=== PATIENT | male | born 1940 | race Caucasian/White ===

== ENCOUNTER → 2016-06-18 | Outpatient (CLI) | payer BC ==
[~2016-06-18] MED LIST: ASPI81TA21 PO; ATOR-54 PO; ATOR10TA88 PO; CARV12.5 PO; CARV6.25 PO; CMD6 PO; LISI-461 PO; METF-384 PO
[2016-06-18 17:38] LABS: CHOLESTEROL/HDL RATIO 4.2
[2016-06-19 06:20] LABS: ESTIMATED AVERAGE GLUCOSE 117 mg/dl; HA1C FLAG Normal (Normal)
== END | disposition home or self-care (01) ==
LOC: C.LABBFT 10:32
PROVIDERS: ATTEND Internal Medicine
DX: E78.5 Hyperlipidemia, unspecified (principal); E11.65 Type 2 diabetes mellitus with hyperglycemia

== ENCOUNTER → 2016-09-30 | Outpatient (CLI) | payer BC ==
[~2016-09-30] MED LIST changes: +ATOR10TA82 PO; -ATOR10TA88 PO
[2016-09-30 13:37] LABS: BLOOD UREA NITROGEN 20 mg/dl (7-18); BUN/CREATININE RATIO 18.3 (10-20)
== END | disposition home or self-care (01) ==
LOC: C.LABBFT 09:27
PROVIDERS: ATTEND Internal Medicine
DX: C61 Malignant neoplasm of prostate (principal); I26.99 Other pulmonary embolism without acute cor pulmonale

== ENCOUNTER → 2016-10-16 | Outpatient (CLI) | payer BC ==
[~2016-10-16] MED LIST changes: -ATOR10TA82 PO; -CARV6.25 PO
[2016-10-16 13:27] VITALS: BP 147/80; PULSE 66; TEMP 36.7; O2SAT 96
--- NOTE | 2016-10-16 15:55 | Radiation Oncology Follow-Up ---
Radiation Oncology Follow-Up Date of Visit October 16, 2016. Reason For Visit Annual follow-up Radiation Completion Date 12/17/02 Diagnosis (1) Prostate cancer Status: Chronic Permanent Comment: Rising PSA Status post biopsy revealing adenocarcinoma Sharon 3+3 Status post hormonal suppression Status post completion of radiation therapy 12/17/2002 received 7920 cGy Slow rise of the PSA Last Edited By: Miladys Price on October 16, 2016 15:51 Interim History He is been followed closely with recheck PSAs over this past year. On May 21 the PSA was 5.080. This was rechecked again on 09/30/2016 and was 7.050. He is doing well from urinary standpoint. His AUA score was 3. He completed expanded prostate cancer index composite for clinical practice and gave a score of 0 of 12 and urinary incontinence symptoms. He gave a score of 0 of 12 urinary irritation symptoms. He gave a score of 2 of 12 in bowel symptoms. He gave a score of 5 of 12 in sexual symptoms. He gave a score of 2 of 12 and hormonal vitality symptoms. His total was 9 of 60. Allergies Coded Allergies: Meperidine (Verified Allergy, Mild, OVER-SEDATION, N/V W/ SYNCOPE, 10/15/16 ) Home Medications Scheduled Aspirin Enteric Coated (Ecotrin Or Generic), 81 MG PO QAM Atorvastatin (Lipitor), 20 MG PO QPM Carvedilol (Coreg), 12.5 MG PO QAM Lisinopril (Zestril), 10 MG PO QAM Metformin Hcl (Glucophage), 1,000 MG PO BID Warfarin Sod (Coumadin), 6 MG PO QAM Review of Systems Gastrointestinal: Symptoms: WNL Oral: Symptoms: No Problems Respiratory: Symptoms: WNL Urinary: Symptoms: WNL, Nocturia Comments: Nocturia x 1, See AUA & EPIC Skin: Symptoms: No Problems Physical Exam Vital Signs Date Time Temp Pulse Resp B/P Pulse Ox O2 Delivery O2 Flow Rate FiO2 10/16/16 13:27 36.7 66 16 147/80 96 Fatigue: None General Appearance: no apparent distress Eyes: normal inspection, EOMI ENT: normal ENT inspection, hearing grossly normal Respiratory/Chest: lungs clear, no respiratory distress, no accessory muscle use Cardiovascular: regular rate, rhythm, no gallop, no murmur Abdomen: non tender, soft Anal / Rectum: Rectal examination performed Dr. Irwin. There are no rectal masses and no rectal bleeding. No prostatic nodules. Neurologic/Psychiatric: no motor/sensory deficits, alert, normal mood/affect Skin: warm/dry Laboratory Studies Test 08/30/16 09:20 09/30/16 09:22 09/30/16 09:31 Prothrombin Time 27.7 SECONDS (9.0-12.0) 33.5 SECONDS (9.0-12.0) Prothrombin Time INR 2.5 (0.9-1.1) 3.0 (0.9-1.1) Blood Urea Nitrogen 20 mg/dl (7-18) Creatinine 1.10 mg/dl (0.60-1.40) Estimated GFR () 74.7 Estimated GFR (Non- 64.4 BUN/Creatinine Ratio 18.3 (10-20) Prostate Specific Antigen 7.050 ng/ml (0.000-4.000) Assessment & Plan Plan: Patient is also seen and examined by Dr. Irwin. We have reviewed with him the changes of the PSA. The most recent visit with Dr. Villalba was reviewed. There is been discussion of obtaining staging studies. We will go forward with ordering a CT of the abdomen and pelvis. We'll also order a bone scan. We'll have him follow-up in 4 months with a recheck PSA. He has a recheck visit with Dr. Villalba scheduled for May. He is been advised that he will likely need to start hormone suppression with a continued rise in the PSA. Total Time In Follow-Up I spent 20 minutes speaking to the patient performing examination. I spent 15 minutes reviewing information and completing this note. Copy To Daniel Mariscal M.D.; Uriel Villalba MD, Urology
== END | disposition home or self-care (01) ==
LOC: C.ONC 13:14
PROVIDERS: ATTEND Physician Assistant Medical
DX: Z08 Encounter for follow-up examination after completed treatment for malignant neoplasm (principal); Z92.3 Personal history of irradiation; Z85.46 Personal history of malignant neoplasm of prostate

== ENCOUNTER → 2016-10-23 | Day surgery (SDC) | payer BC ==
[2016-10-15 10:25] VITALS: BMI 32.0
[~2016-10-23] VITALS: Ht 172.7 cm; Wt 95.9 kg
[~2016-10-23] MED LIST changes: +LIDOCAINE HCL 2% 2 ML VIAL (20MG/ML) ONE; +PHENYLEPHRINE 100MCG/ML 5ML SYR ONE; +PROPOFOL IV EMULSION 10 MG/ML 20 ML VIAL IV ONE; +SODIUM CHLORIDE 0.9% 500ML 500 ML IV ONE
[2016-10-23 07:57] VITALS: Ht 172.7 cm; Wt 95.9 kg
--- NOTE | 2016-10-23 08:45 | Endo History and Physical ---
History & Physical Date of Service: October 23, 2016. Chief Complaint: routine screening Referring Physician: Dr. Mariscal History of Present Illness 76 yo CM who presents for screening colonoscopy. Past Medical History Diabetes, Pulmonary Emboli, Blood Dyscrasias, Cancer, High Cholesterol, Sleep Apnea, Hypertension, Thrombophlebitis Past Surgical History Hx Cardiac Surgery: No Hx Internal Defibrillator: No Hx Pacemaker: No Hx Abdominal Surgery: No Hx of Implantable Prosthesis: No Hx Post-Op Nausea and Vomiting: No Hx Cancer Surgery: Yes (BCC AND MELANOMA REMOVALS) Hx Thoracic Surgery: No Hx Orthopedic: No Hx Urinary Tract Surgery: No Family History None Social History Smoking Status: Never Smoker Hx Substance Use: No Hx Alcohol Use: No Allergies Coded Allergies: Meperidine (Verified Allergy, Mild, OVER-SEDATION, N/V W/ SYNCOPE, 10/23/16 ) Current Medications Reported Home Medications Medications Dose Route/Sig Max Daily Dose Days Date Category Lipitor (Atorvastatin) 20 Mg Tab 20 Mg PO QPM 10/15/16 Reported Coreg (Carvedilol) 12.5 Mg Tab 12.5 Mg PO QAM 10/15/16 Reported Glucophage (Metformin Hcl) 1,000 Mg Tab 1,000 Mg PO BID 10/17/15 Reported Coumadin (Warfarin Sod) 6 Mg Tab 6 Mg PO QAM 02/09/14 Reported Zestril (Lisinopril) 10 Mg Tab 10 Mg PO QAM 09/01/12 Reported Ecotrin Or Generic (Aspirin) 81 Mg Tab 81 Mg PO QAM 01/08/12 Reported Vital Signs Weight (Kilograms): 95.91 Height (Feet): 5 Height (Inches): 8 Date Time Temp Pulse Resp B/P Pulse Ox O2 Delivery O2 Flow Rate FiO2 10/23/16 08:09 36.6 68 20 126/77 95 Room Air Physical Exam General Appearance: WD/WN, no apparent distress Respiratory/Chest: Auscultation: breath sounds normal Cardiovascular: Heart Auscultation: RRR Abdomen: Bowel Sounds: normal Inspection & Palpation: soft, non-distended, no tenderness, guarding & rebound Assessment and Plan Assessment: 76 yo CM who presents for screening colonoscopy. Plan: Proceed with colonoscopy.
--- NOTE | 2016-10-23 09:17 | Anesthesiology Progress Note ---
Anesthesia Post Op Note Date & Time October 23, 2016 at 09:17 Vital Signs Pain Intensity: 0 Vital Signs Past 12 Hours Date Time Temp Pulse Resp B/P Pulse Ox O2 Delivery O2 Flow Rate FiO2 10/23/16 09:14 99/58 10/23/16 09:08 60 20 82/48 94 Room Air 10/23/16 08:09 36.6 68 20 126/77 95 Room Air Notes Mental Status: alert / awake / arousable, participated in evaluation Pt Amnestic to Procedure: Yes Nausea / Vomiting: adequately controlled Pain: adequately controlled Airway Patency, RR, SpO2: stable & adequate BP & HR: stable & adequate Hydration State: stable & adequate Anesthetic Complications: no major complications apparent
--- NOTE | 2016-10-23 09:45 | Discharge Instructions ---
Endoscopy Patient Instructions Date / Procedure(s) Performed October 23, 2016. Colonoscopy Allergy Information Coded Allergies: Meperidine (Verified Allergy, Mild, OVER-SEDATION, N/V W/ SYNCOPE, 10/23/16 ) Discharge Date / Findings October 23, 2016. Colon polyps Medication Instructions Stopped Medication(s): metformin and coumadin OK to resume all medications today as prescribed Reported Home Medications Medications Dose Route/Sig Max Daily Dose Days Date Category Lipitor (Atorvastatin) 20 Mg Tab 20 Mg PO QPM 10/15/16 Reported Coreg (Carvedilol) 12.5 Mg Tab 12.5 Mg PO QAM 10/15/16 Reported Glucophage (Metformin Hcl) 1,000 Mg Tab 1,000 Mg PO BID 10/17/15 Reported Coumadin (Warfarin Sod) 6 Mg Tab 6 Mg PO QAM 02/09/14 Reported Zestril (Lisinopril) 10 Mg Tab 10 Mg PO QAM 09/01/12 Reported Ecotrin Or Generic (Aspirin) 81 Mg Tab 81 Mg PO QAM 01/08/12 Reported Provider Instructions Activity Restrictions - No exercising or heavy lifting for 24 hours. - Do not drink alcohol the day of the procedure. - Do not drive a car or operate machinery until the day after the procedure. - Do not make any important decisions or sign important papers in 24 hours after the procedure. Following Day: - Return to full activity which may include returning to work/school. Diet Start your diet with liquids and light foods (jello, soup, juice, toast). Then eat your usual diet if not nauseated. Treatment For Common After Affects For mild abdominal pain, bloating, or excessive gas: - Rest - Eat lightly - Lie on right side Follow-Up Information Follow-up with Dr. Mariscal as scheduled Anesthesia Information What You Should Know You have had a procedure that required some medicine to reduce anxiety and discomfort. This treatment is called moderate sedation. After receiving the treatment, you may be sleepy, but you will be able to breathe on your own. The effects of the treatment may last for several hours. Follow these instructions along with Activity/Diet recommendations noted above: * Do NOT do anything where dizziness or clumsiness would be dangerous. * Rest quietly at home today, then you can be up and about tomorrow. * Have a responsible person stay with you the rest of today. * You may have had an I.V. today. If so, you may take the dressing off later today. Recommendations Call your doctor if: * Trouble breathing * Continuous vomiting for more than 24 hours * Temperature above 101 degrees * Severe abdominal pain or bloating * Pain not relieved by pain medicine ordered * There is increased drainage or redness from any incision * A large amount of rectal bleeding greater than 2-3 tablespoons. (If you had a polyp/s removed or have hemorrhoids, a small amount of blood - from the rectum is to be expected.) * You have any unanswered questions or concerns. IN THE EVENT OF A SERIOUS EMERGENCY, GO TO THE NEAREST EMERGENCY ROOM Your discharge instructions were prepared by provider Kale Wilkins. Patient Instructions Signature Page Saira Jonse Patient (or Guardian) Signature/Date: I have read and understand the instructions given to me by my caregivers. Caregiver/RN/Doctor Signature/Date: The above-named patient and/or guardian has received patient instructions on this date. + Original Patient Signature Page (only) stays with chart. Please make copy for patient.
[2016-10-23 09:46] VITALS: BP 120/68; PULSE 58; O2SAT 95
--- NOTE | 2016-10-23 10:58 | GI REPORT ---
Procedure Date: 10/23/2016 8:35 AM Procedure: Colonoscopy Indications: Screening for colorectal malignant neoplasm Medicines: Monitored Anesthesia Care Complications: No immediate complications. Estimated Blood Loss: Estimated blood loss: none. Procedure: Pre-Anesthesia Assessment: - Prior to the procedure, a History and Physical was performed, and patient medications and allergies were reviewed. The patient's tolerance of previous anesthesia was also reviewed. The risks and benefits of the procedure and the sedation options and risks were discussed with the patient. All questions were answered, and informed consent was obtained. Prior Anticoagulants: The patient last took aspirin 1 day and Coumadin (warfarin) 7 days prior to the procedure. ASA Grade Assessment: III - A patient with severe systemic disease. After reviewing the risks and benefits, the patient was deemed in satisfactory condition to undergo the procedure. After I obtained informed consent, the scope was passed under direct vision. Throughout the procedure, the patient's blood pressure, pulse, and oxygen saturations were monitored continuously. The Scope was introduced through the anus and advanced to the terminal ileum. The colonoscopy was performed without difficulty. The patient tolerated the procedure well. The quality of the bowel preparation was good. The terminal ileum, ileocecal valve, appendiceal orifice, and rectum were photographed. Findings: Three sessile polyps were found in the ascending colon. The polyps were 4 to 6 mm in size. These polyps were removed with a hot snare. Resection and retrieval were complete. The exam was otherwise without abnormality. Impression: - Three 4 to 6 mm polyps in the ascending colon, removed with a hot snare. Resected and retrieved. - The examination was otherwise normal. Recommendation: - Resume previous diet. - Continue present medications. - Repeat colonoscopy for surveillance based on pathology results. - Return to primary care physician as previously scheduled. Kale Wilkins DO 10/23/2016 9:12:59 AM This report has been signed electronically. Note Initiated On: 10/23/2016 8:35 AM I attest to the content of the Intraoperative Record and orders documented therein, exceptions below
== END | disposition home or self-care (01) ==
LOC: C.GI 07:46
PROVIDERS: ATTEND Internal Medicine
DX: Z12.11 Encounter for screening for malignant neoplasm of colon (principal); D12.2 Benign neoplasm of ascending colon; I10 Essential (primary) hypertension; E78.00 Pure hypercholesterolemia, unspecified; E11.9 Type 2 diabetes mellitus without complications; D75.9 Disease of blood and blood-forming organs, unspecified; G47.30 Sleep apnea, unspecified; I80.9 Phlebitis and thrombophlebitis of unspecified site; Z86.711 Personal history of pulmonary embolism; Z79.01 Long term (current) use of anticoagulants; Z79.84 Long term (current) use of oral hypoglycemic drugs; Z79.899 Other long term (current) drug therapy

== ENCOUNTER → 2017-01-16 | Outpatient (CLI) | payer BC ==
[~2017-01-16] MED LIST changes: -LIDOCAINE HCL 2% 2 ML VIAL (20MG/ML) ONE; -PHENYLEPHRINE 100MCG/ML 5ML SYR ONE; -PROPOFOL IV EMULSION 10 MG/ML 20 ML VIAL IV ONE; -SODIUM CHLORIDE 0.9% 500ML 500 ML IV ONE
[2017-01-16 17:53] LABS: BLOOD UREA NITROGEN 24 mg/dl (7-18)
== END | disposition home or self-care (01) ==
LOC: C.LABBFT 15:33
PROVIDERS: ATTEND Physician Assistant Medical
DX: Z01.818 Encounter for other preprocedural examination (principal); C61 Malignant neoplasm of prostate; I26.99 Other pulmonary embolism without acute cor pulmonale

== ENCOUNTER → 2017-01-28 | Outpatient (CLI) | payer BC ==
[~2017-01-28] MED LIST changes: +OPTIRAY 320 IV PRN
--- NOTE | 2017-01-28 13:03 | DIAGNOSTIC IMAGING REPORT ---
CT SCAN OF THE ABDOMEN AND PELVIS WITH IV CONTRAST CLINICAL HISTORY: Prostate cancer. Rising serum PSA levels. COMPARISON STUDY: Abdominal CT dated 04/06/2013. TECHNIQUE: Following the IV administration of 91 cc of Optiray 320, CT scan of the abdomen and pelvis is performed from the lung bases to the proximal femora. Images are reviewed in the axial, sagittal, and coronal planes. IV contrast was administered without complication. Automated dose control exposure was utilized. A dose lowering technique was utilized adhering to the principles of ALARA. CT DOSE: 890.58 mGycm FINDINGS: Lung bases: The heart is mildly enlarged and without pericardial effusion. Numerous small calcified granulomas are present at the lung bases. Linear atelectasis versus scarring is seen in the right lower lung. No airspace consolidation or pleural effusion is identified. Liver: The contrast-enhanced liver is normal in size, contour, and attenuation. There is no intrahepatic biliary ductal dilatation. The hepatic veins and portal veins are patent. A 2.7 cm lesion in the left hepatic lobe seen on image #48 is unchanged from 2013. This demonstrates peripheral nodular enhancement and is consistent with a benign hemangioma. Gallbladder: Unremarkable. Spleen: Normal in size and attenuation. Pancreas: There is near complete fatty atrophy of the pancreas. Adrenal glands: Unremarkable. Kidneys: The contrast enhanced kidneys demonstrate cortical atrophy and are without hydronephrosis. The kidneys enhance symmetrically. Scattered subcentimeter cortical hypodensities likely represent cysts but are too small for definitive characterization. Abdominal vasculature: The abdominal aorta is normal in course and caliber noting moderate atherosclerotic calcification. Bowel: The small bowel and colon are normal in course and caliber. The appendix is well-visualized and normal. Peritoneum: There is no intraperitoneal free air or abdominal ascites. Lymphadenopathy: None. Pelvic viscera: The prostate gland is diminutive and heterogeneous. The bladder is normal as visualized. Skeletal structures: The skeletal structures are osteopenic. There is a mild compression deformity of L1. Moderate lumbosacral spondylosis is observed. There are healed bilateral rib fractures. No lytic or blastic lesions are seen. IMPRESSION: 1. There is no evidence of metastatic disease in the abdomen or pelvis. 2. The prostate gland is diminutive and heterogeneous. 3. No acute infectious or inflammatory findings are identified. 4. Additional changes as above. Electronically signed by: Saleem Doll M.D. 01/28/2017 1:02 PM Dictated Date/Time: 01/28/2017 12:53 PM
--- NOTE | 2017-01-28 14:11 | DIAGNOSTIC IMAGING REPORT ---
BONE SCAN WHOLE BODY HISTORY: 76 years-old Male PROSTATE CA W/RISING PSA C61, R97.21 metastatic survey. Patient has history of prostate cancer with rising PSA. Follow-up study. COMPARISON: CT abdomen and pelvis of same day, CT chest 08/06/2010 TECHNIQUE: Whole-body bone scan anterior and posterior images were obtained following the intravenous administration of 24.2 mCi technetium 99 MDP. The left arm was used as the administration site. FINDINGS: Physiologic radiotracer accumulation is seen within the bilateral kidneys and urinary bladder. Mildly increased radiotracer uptake is noted about the shoulders, wrists and knees as well as within the cervical, thoracic and lumbar spine suggesting expected degenerative changes. Mild convex right curvature of the lumbar spine is noted. There is a focal area of moderate to intense radiotracer uptake about the right shoulder which is more pronounced anteriorly. No additional abnormal foci are seen within the axial or appendicular skeletal system to suggest metastatic disease. IMPRESSION: 1. Focal area of moderate to intense radiotracer uptake about the anterior right shoulder is indeterminate and likely reflects degenerative changes, however follow-up right shoulder radiographs are recommended to further evaluate. 2. No additional suspicious foci throughout the axial or appendicular skeletal system to suggest metastasis. 3. Mild radiotracer uptake about the knees, wrists, shoulders and spine suggest expected degenerative changes. The above report was generated using voice recognition software. It may contain grammatical, syntax or spelling errors. Electronically signed by: Russell Larios M.D. 01/28/2017 2:10 PM Dictated Date/Time: 01/28/2017 2:03 PM
== END | disposition home or self-care (01) ==
LOC: C.NUCL 09:15
PROVIDERS: ATTEND Physician Assistant Medical
DX: C61 Malignant neoplasm of prostate (principal); R97.21 Rising PSA following treatment for malignant neoplasm of prostate

== ENCOUNTER → 2017-01-29 | Outpatient (CLI) | payer BC ==
[~2017-01-29] MED LIST changes: -OPTIRAY 320 IV PRN
[2017-01-29 15:05] LABS: BLOOD UREA NITROGEN 15 mg/dl (7-18)
== END | disposition home or self-care (01) ==
LOC: C.LAB 13:16
PROVIDERS: ATTEND Physician Assistant Medical
DX: Z01.818 Encounter for other preprocedural examination (principal)

== ENCOUNTER → 2017-02-07 | Outpatient (CLI) | payer BC ==
[2017-02-07 12:31] LABS: BASO % 0.2 %; BASO ABS # 0.01 K/uL (0-0.2); COMPLETE YES; EOS % 2.1 %; HEMATOCRIT 42.1 % (42-52); IG% 0.2 %; LYMPH % 29.6 %; LYMPH ABS # 1.28 K/uL (1.2-3.4); MEAN CELL VOLUME 93.3 fL (80-100); MEAN CORPUSCULAR HEMOGLOBIN 31.3 pg (25-34); MEAN CORPUSCULAR HGB CONC 33.5 g/dl (32-36); MEAN PLATELET VOLUME 9.8 fL (7.4-10.4); MONO % 10.2 %; NEUT % 57.7 %; PLATELET COUNT 154 K/uL (130-400); RED BLOOD COUNT 4.51 M/uL (4.7-6.1); WHITE BLOOD COUNT 4.33 K/uL (4.8-10.8)
[2017-02-07 13:12] LABS: RATIO 4.5 mcg/mg (0-30.0)
[2017-02-07 13:27] LABS: ALT/SGPT 37 U/L (12-78); AST/SGOT 19 U/L (15-37); BLOOD UREA NITROGEN 18 mg/dl (7-18); BUN/CREATININE RATIO 18.1 (10-20); CALCIUM 8.8 mg/dl (8.5-10.1); CARBON DIOXIDE 26 mmol/L (21-32); CHLORIDE 106 mmol/L (98-107); ESTIMATED AVERAGE GLUCOSE 123 mg/dl; GLUCOSE 98 mg/dl (70-99); HA1C FLAG Normal (Normal); POTASSIUM 4.6 mmol/L (3.5-5.1); SODIUM 138 mmol/L (136-145)
[2017-02-07 13:38] LABS: ALB/GLOB RATIO 1.1 (0.9-2); ALKALINE PHOSPHATASE 89 U/L (45-117)
== END | disposition home or self-care (01) ==
LOC: C.LABBFT 10:20
PROVIDERS: ATTEND Internal Medicine
DX: E11.65 Type 2 diabetes mellitus with hyperglycemia (principal); E78.5 Hyperlipidemia, unspecified; R93.7 Abnormal findings on diagnostic imaging of other parts of musculoskeletal system; I26.99 Other pulmonary embolism without acute cor pulmonale

== ENCOUNTER → 2017-02-07 | Outpatient (CLI) | payer BC ==
--- NOTE | 2017-02-07 11:51 | DIAGNOSTIC IMAGING REPORT ---
RIGHT SHOULDER MIN 2 VIEWS ROUTINE CLINICAL HISTORY: ABNORMAL BONE SCAN R93.7 Right pain COMPARISON: Bone scan dated 01/28/2017 DISCUSSION: Significant degenerative change right acromioclavicular as well as glenohumeral joint. Considerable reactive osteophytic change. There is no evidence for soft tissue swelling. IMPRESSION: Considerable degenerative change right shoulder. This apparently accounts for the bone scan activity. The above report was generated using voice recognition software. It may contain grammatical, syntax or spelling errors. Electronically signed by: Marty Eid M.D. 02/07/2017 11:50 AM Dictated Date/Time: 02/07/2017 11:49 AM
== END | disposition home or self-care (01) ==
LOC: C.RAD 11:21
PROVIDERS: ATTEND Physician Assistant Medical
DX: R93.7 Abnormal findings on diagnostic imaging of other parts of musculoskeletal system (principal)

== ENCOUNTER → 2017-06-16 | Outpatient (CLI) | payer BC ==
[2017-06-16 12:54] LABS: HEMOGLOBIN A1C 5.9 % (4.5-5.6)
[2017-06-16 13:27] LABS: ALBUMIN 3.5 gm/dl (3.4-5.0); ALT/SGPT 55 U/L (12-78); AST/SGOT 32 U/L (15-37); BLOOD UREA NITROGEN 18 mg/dl (7-18); CALCIUM 8.7 mg/dl (8.5-10.1); CARBON DIOXIDE 28 mmol/L (21-32); CHOLESTEROL 226 mg/dl (0-200); GLUCOSE 110 mg/dl (70-99); POTASSIUM 4.6 mmol/L (3.5-5.1); SODIUM 137 mmol/L (136-145)
[2017-06-16 13:33] LABS: ALKALINE PHOSPHATASE 99 U/L (45-117); LDL CHOLESTEROL CALCULATED 134 mg/dl
== END | disposition home or self-care (01) ==
LOC: C.LABBFT 07:57
PROVIDERS: ATTEND Internal Medicine
DX: C61 Malignant neoplasm of prostate (principal); E11.9 Type 2 diabetes mellitus without complications; E78.5 Hyperlipidemia, unspecified

== ENCOUNTER → 2017-09-26 | Outpatient (CLI) | payer BC ==
[~2017-09-26] MED LIST changes: +ASPI-319 PO; -ASPI81TA21 PO
[2017-09-26 12:46] LABS: BLOOD UREA NITROGEN 23 mg/dl (7-18); CREATININE 1.09 mg/dl (0.60-1.40)
== END | disposition home or self-care (01) ==
LOC: C.LABBFT 10:03
PROVIDERS: ATTEND Urology
DX: C61 Malignant neoplasm of prostate (principal)

== ENCOUNTER 2018-06-28 21:00 | Inpatient (IN) ==
[2018-06-28] MEDS ORDERED: dilTIAZem HCl 5 MG/ML 5 ML VIAL IV STA ×2 (21:14→21:55)
[2018-06-28] MEDS ORDERED: SODIUM CHLORIDE 0.9% 500 ML IV SCH (21:15)
--- NOTE | 2018-06-28 21:26 | Emergency Department Note ---
Entered by Saleem Alfred acting as a scribe for Trey Hu DO History of Present Illness General Chief complaint: Chest Pain Stated complaint: CHEST PAIN Source: patient History of Present Illness Provider complaint: Chest Pain Onset (ago): hour(s) 3 Location: chest Maximum Pain Intensity: 9 Quality: + constant Associated symptoms: + denies other symptoms (SOB, pain in legs), + chest pain and + other (neck pain); no headaches and no nausea/vomiting The patient is a 78 year old male who presents to the Emergency Room with complaints of chest pain that started approximately 3 hours ago. The patient stated that he felt bad 3 hours prior to arrival and has chest pain, some shortness of breath, and pain in his legs. The patient reports that he fell 4 days ago on some ice and landed on his shoulder and elbow. He denies hitting his head. The patient also adds that he has some pain in the side on his neck. The patient rates his overall discomfort as a 9/10. The patient adds that he has been eating fine. The patient denies headaches and nausea/vomiting. The patient also noted that he is on Coumadin. Home Medications Home Medications Medication Instructions Recorded Confirmed Type aspirin [Aspir-81] 81 mg PO DAILY 06/28/18 06/28/18 History atorvastatin 40 mg PO HS 06/28/18 06/28/18 History carvedilol 12.5 mg PO BID 06/28/18 06/28/18 History latanoprost 1 drp OPB HS 06/28/18 06/28/18 History lisinopril 10 mg PO DAILY 06/28/18 06/28/18 History metformin 500 mg PO BID 06/28/18 06/28/18 History timolol maleate 1 drp OPB DAILY 06/28/18 06/28/18 History warfarin 6 mg PO DAILY 06/28/18 06/28/18 History Allergies Allergy/AdvReac Type Severity Reaction Status Date / Time meperidine Allergy Mild OVER-SEDATION, Verified 06/09/18 13:14 N/V W/ SYNCOPE Past Med/Surg History Medical History Atrial fibrillation Social History Current Living Situation: Spouse Other Information That Helps Us Care for You: No Feels Safe at Home: Yes Safety Concerns: Feels Safe At This Time Smoking Status: Never smoker Do You Dip or Chew Tobacco: No Hx Alcohol Use: No Hx Substance Use: No Beliefs That Will Affect Care: None Preferred Language: Iranian Communication Ability: Effective Wallboard Worker Required: No Review of Systems See HPI for pertinent positives & negatives. and A total of 10 systems reviewed and were otherwise negative Physical Exam Vital Signs Vital Signs - 24 hr 06/28/18 21:02 06/28/18 21:22 06/28/18 21:54 Temperature 36.9 C Temperature Source Oral Sepsis Recent Fever Within 48 Hours No Sepsis Action Taken by Nursing No Action Required Pulse Rate 159 H Pulse Rate [Apical] Pulse Rate [Right Finger] 116 H Pulse Rhythm [Apical] Pulse Rhythm [Right Finger] Irregular Pulse Strength [Apical] Pulse Strength [Right Finger] Normal Respiratory Rate 22 18 Respiratory Effort / Characteristics Non-Labored Spontaneous Respiratory Depth Normal Respiratory Pattern Blood Pressure 154/112 H Blood Pressure [Left Arm] Blood Pressure [Right Arm] 159/83 H Blood Pressure Mean 126 Blood Pressure Mean [Left Arm] Blood Pressure Mean [Right Arm] 108 Blood Pressure Position Sitting Blood Pressure Position [Left Arm] Blood Pressure Position [Right Arm] Pulse Oximetry 96 96 96 Oxygen Delivery Method Room Air Room Air Room Air 06/28/18 22:06 06/28/18 23:48 06/29/18 00:15 Temperature 36.9 C Temperature Source Oral Sepsis Recent Fever Within 48 Hours Sepsis Action Taken by Nursing Pulse Rate Pulse Rate [Apical] Pulse Rate [Right Finger] 88 113 H 112 H Pulse Rhythm [Apical] Pulse Rhythm [Right Finger] Irregular Irregular Regular Pulse Strength [Apical] Pulse Strength [Right Finger] Normal Normal Normal Respiratory Rate 18 18 18 Respiratory Effort / Characteristics Non-Labored Spontaneous Non-Labored Non-Labored Respiratory Depth Normal Normal Normal Respiratory Pattern Regular Blood Pressure Blood Pressure [Left Arm] Blood Pressure [Right Arm] 119/77 113/72 158/100 H Blood Pressure Mean Blood Pressure Mean [Left Arm] Blood Pressure Mean [Right Arm] 91 85 119 Blood Pressure Position Blood Pressure Position [Left Arm] Blood Pressure Position [Right Arm] Lying Pulse Oximetry 95 95 94 Oxygen Delivery Method Room Air Room Air 06/29/18 01:00 06/29/18 01:10 06/29/18 01:35 Temperature Temperature Source Sepsis Recent Fever Within 48 Hours Sepsis Action Taken by Nursing Pulse Rate Pulse Rate [Apical] 102 H Pulse Rate [Right Finger] 142 H 93 H 102 H Pulse Rhythm [Apical] Regular Pulse Rhythm [Right Finger] Pulse Strength [Apical] Pulse Strength [Right Finger] Respiratory Rate 18 18 18 Respiratory Effort / Characteristics Non-Labored Non-Labored Respiratory Depth Normal Normal Respiratory Pattern Blood Pressure Blood Pressure [Left Arm] 116/60 130/68 125/59 L Blood Pressure [Right Arm] Blood Pressure Mean Blood Pressure Mean [Left Arm] 78 88 81 Blood Pressure Mean [Right Arm] Blood Pressure Position Blood Pressure Position [Left Arm] Lying Lying Lying Blood Pressure Position [Right Arm] Pulse Oximetry 94 Oxygen Delivery Method Room Air 06/29/18 04:17 06/29/18 07:45 06/29/18 08:00 Temperature 36.8 C Temperature Source Oral Sepsis Recent Fever Within 48 Hours Sepsis Action Taken by Nursing Pulse Rate Pulse Rate [Apical] 150 H 129 H Pulse Rate [Right Finger] 81 Pulse Rhythm [Apical] Irregular Irregular Pulse Rhythm [Right Finger] Pulse Strength [Apical] Normal Normal Pulse Strength [Right Finger] Respiratory Rate 18 22 20 Respiratory Effort / Characteristics Non-Labored Non-Labored Respiratory Depth Normal Respiratory Pattern Blood Pressure Blood Pressure [Left Arm] 114/64 140/73 138/89 Blood Pressure [Right Arm] Blood Pressure Mean Blood Pressure Mean [Left Arm] 80 95 105 Blood Pressure Mean [Right Arm] Blood Pressure Position Blood Pressure Position [Left Arm] Lying Sitting Lying Blood Pressure Position [Right Arm] Pulse Oximetry 93 96 95 Oxygen Delivery Method Room Air Room Air Room Air 06/29/18 08:15 06/29/18 08:30 06/29/18 09:00 Temperature Temperature Source Sepsis Recent Fever Within 48 Hours Sepsis Action Taken by Nursing Pulse Rate Pulse Rate [Apical] 108 H 102 H 84 Pulse Rate [Right Finger] Pulse Rhythm [Apical] Irregular Irregular Irregular Pulse Rhythm [Right Finger] Pulse Strength [Apical] Normal Normal Normal Pulse Strength [Right Finger] Respiratory Rate 22 20 Respiratory Effort / Characteristics Non-Labored Non-Labored Respiratory Depth Normal Normal Respiratory Pattern Blood Pressure Blood Pressure [Left Arm] 128/69 110/67 110/67 Blood Pressure [Right Arm] Blood Pressure Mean Blood Pressure Mean [Left Arm] 88 81 81 Blood Pressure Mean [Right Arm] Blood Pressure Position Blood Pressure Position [Left Arm] Lying Lying Lying Blood Pressure Position [Right Arm] Pulse Oximetry 97 97 98 Oxygen Delivery Method Room Air Room Air 06/29/18 11:43 Temperature 36.8 C Temperature Source Oral Sepsis Recent Fever Within 48 Hours Sepsis Action Taken by Nursing Pulse Rate Pulse Rate [Apical] 66 Pulse Rate [Right Finger] Pulse Rhythm [Apical] Regular Pulse Rhythm [Right Finger] Pulse Strength [Apical] Normal Pulse Strength [Right Finger] Respiratory Rate 22 Respiratory Effort / Characteristics Non-Labored Respiratory Depth Normal Respiratory Pattern Blood Pressure Blood Pressure [Left Arm] 117/69 Blood Pressure [Right Arm] Blood Pressure Mean Blood Pressure Mean [Left Arm] 85 Blood Pressure Mean [Right Arm] Blood Pressure Position Blood Pressure Position [Left Arm] Lying Blood Pressure Position [Right Arm] Pulse Oximetry 95 Oxygen Delivery Method Room Air GENERAL: Patient is awake alert in no acute distress patient is resting comfortably and showing no signs of anxiety EYES: The conjunctivae are clear. The pupils are round and reactive. EARS, NOSE, MOUTH AND THROAT: The nose is without any evidence of any deformity. Mucous membranes are moist tongue is midline NECK: The neck is nontender and supple. RESPIRATORY: Normal respiratory effort is noted there is no evidence of wheezing rhonchi or rales CARDIOVASCULAR: Tachycardic rate with irregular rhythm was noted. No definite murmur was noted. GASTROINTESTINAL: The abdomen is soft. Bowel sounds are present in all quadrants. Abdomen is nontender MUSCULOSKELETAL/EXTREMITIES: There is no evidence of gross deformity full range of motion is noted in the hips and shoulders SKIN: There is no obvious evidence of any rash. Trace pedal edema was noted bilaterally. NEUROLOGIC: Patient is awake alert and oriented x3. Course 2114: Past medical records reviewed. The patient was evaluated in room B11, and a complete history and physical examination were performed. 3220: I reviewed the patient's case with Dr. Park, Hospitalist. He will evaluate the patient for further management. Administered Medications Aspirin (Ecotrin Ectab) 81 mg PO DAILY [facility] Stop: 07/29/18 08:59 Last Admin: 06/29/18 07:52 Dose: 81 mg Carvedilol (Coreg) 12.5 mg PO BID [facility] Stop: 07/29/18 08:59 Last Admin: 06/29/18 07:53 Dose: 12.5 mg Diltiazem HCl 125 mg/ Dextrose 125 mls @ 5 mls/hr IV .Q24H [facility]; Protocol Stop: 07/29/18 00:35 Last Titration: 06/29/18 07:11 Dose: 5 mg/hr, 5 mls/hr Admin: 06/29/18 01:02 Dose: 5 mg/hr, 5 mls/hr Sodium Chloride (Nss 1000ml) 1,000 mls @ 150 mls/hr IV .Q6H40M [facility] Stop: 06/29/18 14:54 Last Admin: 06/29/18 09:06 Dose: 150 mls/hr Insulin Aspart (Novolog Flexpen) 0 units SC ACHS AILEEN Stop: 07/29/18 05:59 Last Admin: 06/29/18 12:22 Dose: 1 units Timolol Maleate (Timoptic 0.25% Oph) 1 drops OPB DAILY [facility] Stop: 07/29/18 08:59 Last Admin: 06/29/18 07:53 Dose: 1 drops Discontinued Medications Diltiazem HCl (Cardizem) 10 mg IV NOW STA Stop: 06/28/18 21:15 Last Admin: 06/28/18 21:27 Dose: 10 mg Diltiazem HCl (Cardizem) 10 mg IV NOW STA Stop: 06/28/18 21:56 Last Admin: 06/28/18 21:57 Dose: 10 mg Diltiazem HCl (Cardizem) 5 mg IV NOW STA Stop: 06/29/18 00:37 Last Admin: 06/29/18 01:02 Dose: 5 mg Sodium Chloride (Nss) 500 mls @ 999 mls/hr IV .Q31M AILEEN Stop: 06/28/18 21:45 Last Infusion: 06/28/18 22:05 Dose: 0 mls/hr Admin: 06/28/18 21:30 Dose: 999 mls/hr Insulin Aspart (Novolog Flexpen) 0 units SC Q6 [facility] Stop: 07/29/18 05:59 Last Admin: 06/29/18 06:39 Dose: Not Given Medical Decision Making Differential Diagnosis Differential diagnosis: Etiologies such as shingles, musculoskeletal pain, pericarditis, myocarditis, cardiac ischemia, pericardial tamponade, pneumonia, pneumothorax, pleural effusion, hemothorax, pleurisy, aortic pathology, pulmonary embolism, intra- abdominal process, as well as others were considered. Medical Records Attestation: I reviewed the patient's medical records. Home Medications Current Medication List: was personally reviewed by me Laboratory Data Attestation: I reviewed the patient's lab results. Result diagrams: 06/28/18 21:16 06/28/18 21:16 Lab Results 06/28/18 06/28/18 06/28/18 Range/Units 21:16 21:16 21:16 WBC 5.91 (4.8-10.8) K/uL RBC 4.64 L (4.7-6.1) M/uL Hgb 14.5 (14.0-18.0) g/dL Hct 42.1 (42-52) % MCV 90.7 (80-100) fL MCH 31.3 (25-34) pg MCHC 34.4 (32-36) g/dL RDW Std Deviation 41.8 (36.4-46.3) fL RDW Coeff of Mickey 12.7 (11.5-14.5) % Plt Count 155 (130-400) K/uL MPV 9.8 (7.4-10.4) fL Immature Gran % (Auto) 0.0 % Neut % (Auto) 46.4 % Lymph % (Auto) 43.8 % [place] % (Auto) 7.6 % Eos % (Auto) 1.9 % Baso % (Auto) 0.3 % Immature Gran # (Auto) 0.00 (0.00-0.02) K/uL Neut # (Auto) 2.74 (1.4-6.5) K/uL Lymph # (Auto) 2.59 (1.2-3.4) K/uL [place] # (Auto) 0.45 (0.11-0.59) K/uL Eos # (Auto) 0.11 (0-0.5) K/uL Baso # (Auto) 0.02 (0-0.2) K/uL PT 24.1 H (9.0-12.0) Seconds INR 2.5 H (0.9-1.1) APTT 31.9 H (21.0-31.0) Seconds PTT Ratio 1.2 Sodium 139 (136-145) mmol/L Potassium 4.4 (3.5-5.1) mmol/L Chloride 105 (98-107) mmol/L Carbon Dioxide 27 (21-32) mmol/L Anion Gap 7.0 (3-11) BUN 22 H (7-18) mg/dl Creatinine 1.18 (0.6-1.4) mg/dl Est Cr Clr Drug Dosing 57.7 ml/min Est GFR ( Amer) 67.6 Est GFR (Non-Af Amer) 58.3 BUN/Creatinine Ratio 18.6 (10-20) Glucose 154 H (70-99) mg/dl POC Glucose (70-99) Calcium 8.7 (8.5-10.1) mg/dl Magnesium 1.9 (1.8-2.4) mg/dl Total Bilirubin 0.4 (0.2-1) mg/dl AST 20 (15-37) U/L ALT 30 (12-78) U/L Alkaline Phosphatase 108 (45-117) U/L Troponin I < 0.015 (0-0.045) ng/ml Total Protein 7.3 (6.4-8.2) gm/dl Albumin 3.6 (3.4-5.0) gm/dl Globulin 3.7 (2.5-4.0) gm/dl Albumin/Globulin Ratio 1.0 (0.9-2) TSH 2.370 (0.300-4.500) uIu/ml Urine Color Urine Appearance (Clear) Urine pH (4.5-7.5) Ur Specific [place] (1.000-1.030) Urine Protein (Negative) Urine Glucose (UA) (Negative) Urine Ketones (Negative) Urine Blood (Negative) Urine Nitrite (Negative) Urine Bilirubin (Negative) Urine Urobilinogen (Negative) Ur Leukocyte Esterase (Negative) 06/29/18 06/29/18 06/29/18 Range/Units 00:34 03:25 03:30 WBC (4.8-10.8) K/uL RBC (4.7-6.1) M/uL Hgb (14.0-18.0) g/dL Hct (42-52) % MCV (80-100) fL MCH (25-34) pg MCHC (32-36) g/dL RDW Std Deviation (36.4-46.3) fL RDW Coeff of Mickey (11.5-14.5) % Plt Count (130-400) K/uL MPV (7.4-10.4) fL Immature Gran % (Auto) % Neut % (Auto) % Lymph % (Auto) % [place] % (Auto) % Eos % (Auto) % Baso % (Auto) % Immature Gran # (Auto) (0.00-0.02) K/uL Neut # (Auto) (1.4-6.5) K/uL Lymph # (Auto) (1.2-3.4) K/uL [place] # (Auto) (0.11-0.59) K/uL Eos # (Auto) (0-0.5) K/uL Baso # (Auto) (0-0.2) K/uL PT (9.0-12.0) Seconds INR (0.9-1.1) APTT (21.0-31.0) Seconds PTT Ratio Sodium (136-145) mmol/L Potassium (3.5-5.1) mmol/L Chloride (98-107) mmol/L Carbon Dioxide (21-32) mmol/L Anion Gap (3-11) BUN (7-18) mg/dl Creatinine (0.6-1.4) mg/dl Est Cr Clr Drug Dosing ml/min Est GFR ( Amer) Est GFR (Non-Af Amer) BUN/Creatinine Ratio (10-20) Glucose (70-99) mg/dl POC Glucose 121 H (70-99) Calcium (8.5-10.1) mg/dl Magnesium (1.8-2.4) mg/dl Total Bilirubin (0.2-1) mg/dl AST (15-37) U/L ALT (12-78) U/L Alkaline Phosphatase (45-117) U/L Troponin I 0.020 (0-0.045) ng/ml Total Protein (6.4-8.2) gm/dl Albumin (3.4-5.0) gm/dl Globulin (2.5-4.0) gm/dl Albumin/Globulin Ratio (0.9-2) TSH (0.300-4.500) uIu/ml Urine Color Yellow Urine Appearance Clear (Clear) Urine pH 5.5 (4.5-7.5) Ur Specific [place] 1.014 (1.000-1.030) Urine Protein Negative (Negative) Urine Glucose (UA) Negative (Negative) Urine Ketones Negative (Negative) Urine Blood Negative (Negative) Urine Nitrite Negative (Negative) Urine Bilirubin Negative (Negative) Urine Urobilinogen Negative (Negative) Ur Leukocyte Esterase Negative (Negative) 06/29/18 06/29/18 06/29/18 Range/Units 06:35 08:33 11:41 WBC (4.8-10.8) K/uL RBC (4.7-6.1) M/uL Hgb (14.0-18.0) g/dL Hct (42-52) % MCV (80-100) fL MCH (25-34) pg MCHC (32-36) g/dL RDW Std Deviation (36.4-46.3) fL RDW Coeff of Mickey (11.5-14.5) % Plt Count (130-400) K/uL MPV (7.4-10.4) fL Immature Gran % (Auto) % Neut % (Auto) % Lymph % (Auto) % [place] % (Auto) % Eos % (Auto) % Baso % (Auto) % Immature Gran # (Auto) (0.00-0.02) K/uL Neut # (Auto) (1.4-6.5) K/uL Lymph # (Auto) (1.2-3.4) K/uL [place] # (Auto) (0.11-0.59) K/uL Eos # (Auto) (0-0.5) K/uL Baso # (Auto) (0-0.2) K/uL PT (9.0-12.0) Seconds INR (0.9-1.1) APTT (21.0-31.0) Seconds PTT Ratio Sodium (136-145) mmol/L Potassium (3.5-5.1) mmol/L Chloride (98-107) mmol/L Carbon Dioxide (21-32) mmol/L Anion Gap (3-11) BUN (7-18) mg/dl Creatinine (0.6-1.4) mg/dl Est Cr Clr Drug Dosing ml/min Est GFR ( Amer) Est GFR (Non-Af Amer) BUN/Creatinine Ratio (10-20) Glucose (70-99) mg/dl POC Glucose 111 H 175 H (70-99) Calcium (8.5-10.1) mg/dl Magnesium (1.8-2.4) mg/dl Total Bilirubin (0.2-1) mg/dl AST (15-37) U/L ALT (12-78) U/L Alkaline Phosphatase (45-117) U/L Troponin I < 0.015 (0-0.045) ng/ml Total Protein (6.4-8.2) gm/dl Albumin (3.4-5.0) gm/dl Globulin (2.5-4.0) gm/dl Albumin/Globulin Ratio (0.9-2) TSH (0.300-4.500) uIu/ml Urine Color Urine Appearance (Clear) Urine pH (4.5-7.5) Ur Specific [place] (1.000-1.030) Urine Protein (Negative) Urine Glucose (UA) (Negative) Urine Ketones (Negative) Urine Blood (Negative) Urine Nitrite (Negative) Urine Bilirubin (Negative) Urine Urobilinogen (Negative) Ur Leukocyte Esterase (Negative) Imaging Data Radiologist's Impression: Radiology results as stated below per my review and the radiologist's interpretation: CT cervical spine wo con CT DOSE: 1083.39 mGy.cm HISTORY: Trauma fall TECHNIQUE: Multiaxial CT images of the cervical spine were performed and reformatted in the sagittal and coronal plane without the use of contrast. A dose lowering technique was utilized adhering to the principles of ALARA. COMPARISON: None. FINDINGS: No fractures. No subluxation. Prevertebral soft tissues and the C1-C2 interval are intact. No pneumothorax. Considerable degenerative disc changes throughout. Degenerative change posterior and lateral elements. Slight wedge deformity superior endplate T1 felt to be old IMPRESSION: Degenerative change. No acute process. Slight wedge deformity superior endplate T1 felt to be nonacute. The above report was generated using voice recognition software. It may contain grammatical, syntax or spelling errors. Electronically signed by: Marty Eid M.D. 06/28/2018 10:[address] head/brain wo con CT DOSE: HISTORY: Trauma fall TECHNIQUE: Multiaxial CT images of the head were performed without the use of intravenous contrast. A dose lowering technique was utilized adhering to the principles of ALARA. Comparison: None. Findings: The paranasal sinuses and mastoid air cells are clear. The calvarium and skull base are intact. The ventricles and sulci are within normal limits. There is no mass, hematoma, midline shift, or acute infarct. Impression: No acute intracranial abnormality. Chronic age-related change The above report was generated using voice recognition software. It may contain grammatical, syntax or spelling errors. Electronically signed by: Marty Eid M.D. 06/28/2018 9:58 PM XR chest 1V portable CLINICAL HISTORY: weakness COMPARISON STUDY: 08/06/2010 FINDINGS: Moderate cardiomegaly. Mild emphysematous change. No acute infiltrate. Diaphragms are smooth. IMPRESSION: Moderate cardiomegaly. Emphysematous change. No acute infiltrate. The above report was generated using voice recognition software. It may contain grammatical, syntax or spelling errors. Electronically signed by: Marty Eid M.D. 06/28/2018 10:22 PM ECG Data Attestation: I personally reviewed and interpreted this ECG as follows: Indication: chest pain Rate (beats per minute): 139 Rhythm: atrial fibrillation Findings: + ST depression (diffuse) and + T-wave inversion (lateral) Comparison ECG Date: from (09/06/10) Change: the following changes noted (A Fib is new) Blood Pressure Blood Pressure Findings: Low blood pressure Blood Pressure Disposition: further management by hospitalist MDM Narrative The patient is a 78-year-old male who presented to the emergency department for an evaluation of palpitations and chest discomfort. The patient had new onset atrial fibrillation. He currently takes warfarin. He was treated with IV Cardizem in the emergency department. The patient was reevaluated multiple times. His chest discomfort significantly improved with the ministration of rate controlling agents. I discussed the patient's laboratory and radiographic studies with him. I also discussed his case with the on-call [facility] hospitalist. They have agreed to evaluate the patient in the emergency department for further management and disposition. Impression & Plan Atrial fibrillation with RVR, Atrial fibrillation Differential diagnosis: Etiologies such as shingles, musculoskeletal pain, pericarditis, myocarditis, cardiac ischemia, pericardial tamponade, pneumonia, pneumothorax, pleural effusion, hemothorax, pleurisy, aortic pathology, pulmonary embolism, intra- abdominal process, as well as others were considered. Discharge Plan Visit Data *Final* Discharge Date/Time: 06/29/18 00:01 Chief Complaint: Chest Pain Stated Complaint: CHEST PAIN ED Provider: Trey Hu Discharge Problem: Atrial fibrillation with RVR, Atrial fibrillation Patient Disposition: Admitted As Inpatient Discharge Instructions Interventions: ED Discharge Assessment Last Done: 06/29/18 00:01 The scribe's documentation has been prepared under my direction and personally reviewed by me in its entirety. I confirm that the note above accurately reflects all work, treatment, procedures, and medical decision making performed by me.
[2018-06-28 21:40] LABS: Basophils # (auto) 0.02 K/uL (0-0.2); Basophils % (auto) 0.3 %; Eosinophils # (auto) 0.11 K/uL (0-0.5); Eosinophils % (auto) 1.9 %; Hematocrit (blood only) 42.1 % (42-52); Hemoglobin 14.5 g/dL (14.0-18.0); Lymphocytes # (auto) 2.59 K/uL (1.2-3.4); Lymphocytes % (auto) 43.8 %; Mean Corpuscular Hgb Conc 34.4 g/dL (32-36); Mean Corpuscular Volume 90.7 fL (80-100); Mean Platelet Volume 9.8 fL (7.4-10.4); Monocytes # (auto) 0.45 K/uL (0.11-0.59); Monocytes % (auto) 7.6 %; Neutrophils # (auto) 2.74 K/uL (1.4-6.5); Neutrophils % (auto) 46.4 %; Platelet Count 155 K/uL (130-400); RDW Coefficient of Variation 12.7 % (11.5-14.5); RDW Standard Deviation 41.8 fL (36.4-46.3); Red Blood Count 4.64 M/uL (4.7-6.1); White Blood Count 5.91 K/uL (4.8-10.8)
[2018-06-28 21:49] LABS: INR 2.5 (0.9-1.1); Partial Thromboplastin Ratio 1.2; Partial Thromboplastin Time 31.9 Seconds (21.0-31.0); Prothrombin Time 24.1 Seconds (9.0-12.0)
[2018-06-28 22:00] LABS: Albumin Level 3.6 gm/dl (3.4-5.0); Aspartate Aminotransferase 20 U/L (15-37); BUN Creatinine Ratio 18.6 (10-20); Blood Urea Nitrogen 22 mg/dl (7-18); Calcium 8.7 mg/dl (8.5-10.1); Carbon Dioxide 27 mmol/L (21-32); Chloride 105 mmol/L (98-107); Creatinine Clr Calc Pharmacy 57.7 ml/min; Est GFR (African American) 67.6; Est GFR (Non-African American) 58.3; Glucose 154 mg/dl (70-99); Magnesium 1.9 mg/dl (1.8-2.4); Potassium 4.4 mmol/L (3.5-5.1); Sodium 139 mmol/L (136-145)
--- NOTE | 2018-06-28 22:00 | CT Scan Report ---
CT head/brain wo con CT DOSE: HISTORY: Trauma fall TECHNIQUE: Multiaxial CT images of the head were performed without the use of intravenous contrast. A dose lowering technique was utilized adhering to the principles of ALARA. Comparison: None. Findings: The paranasal sinuses and mastoid air cells are clear. The calvarium and skull base are int act. The ventricles and sulci are within normal limits. There is no mass, hematoma, midline shift, or acute infarct. Impression: No acute intracranial abnormality. Chronic age-related change The above report was generated using voice recognition software. It may contain grammatical, syntax or spelling errors. Electronically signed by: Marty Eid M.D. 06/28/2018 9:58 PM
--- NOTE | 2018-06-28 22:03 | CT Scan Report ---
CT cervical spine wo con CT DOSE: 1083.39 mGy.cm HISTORY: Trauma fall TECHNIQUE: Multiaxial CT images of the cervical spine were performed and reformatted in the sagittal and coronal plane without the use of contrast. A dose lowering technique was utilized adhering to th e principles of ALARA. COMPARISON: None. FINDINGS: No fractures. No subluxation. Prevertebral soft tissues and the C1-C2 interval are intact. No pneumothorax. Considerable degenerative disc changes throughout. Degenerative change posterior and lateral elements. Slight wedge deformity superior endplate T1 felt to be old IMPRESSION: Degenerative change. No acute process. Slight wedge deformity superior endplate T1 felt to be nonacut e. The above report was generated using voice recognition software. It may contain grammatical, syntax or spelling errors. Electronically signed by: Marty Eid M.D. 06/28/2018 10:02 PM
[2018-06-28 22:10] LABS: Alanine Aminotransferase 30 U/L (12-78); Alkaline Phosphatase 108 U/L (45-117); Bilirubin,Total 0.4 mg/dl (0.2-1); Globulin 3.7 gm/dl (2.5-4.0); Total Protein 7.3 gm/dl (6.4-8.2); Troponin I < 0.015 ng/ml (0-0.045)
--- NOTE | 2018-06-28 22:24 | XRay Report ---
XR chest 1V portable CLINICAL HISTORY: weakness COMPARISON STUDY: 08/06/2010 FINDINGS: Moderate cardiomegaly. Mild emphysematous change. No acute infiltrate. Diaphragms are jaime h. IMPRESSION: Moderate cardiomegaly. Emphysematous change. No acute infiltrate. The above report was generated using voice recognition software. It may contain grammatical, syntax or spelling errors. Electronically signed by: Marty Eid M.D. 06/28/2018 10:22 PM
--- NOTE | 2018-06-28 23:23 | History & Physical Report ---
Date of Service June 28, 2018 Assessment & Plan (1) Rapid atrial fibrillation: 78 y/o M Hx HTN, HLD, DM II, prostate CA, glaucoma, DVT/PE. Pt developed sharp central CP radiating to his L arm, accompanied by SOB, diaphoresis and a sensation of a pounding pulse in his head. He presented to the ER where rapid AF was apparent on monitor. His symptoms had largely resolved on arrival and resolved completely with 2 10mg boluses of Diltiazem. Initial labs including a troponin are unremarkable. 1) CP - likely related to rapid AF - he does have several risk factors. We will monitor on telemetry, cont ASA, atorvastatin, carvedilol, trend enzymes. He is anticoagulated with Coumadin. His appliquer zigzag is consulted. 2) Rapid AF - will place on Diltiazem. Pt's INR is therapeutic on current Coumadin dose. 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 Pt developed sharp central CP radiating to his L arm, accompanied by SOB, diaphoresis and a sensation of a pounding pulse in his head. He presented to the ER where rapid AF was apparent on monitor. His symptoms had largely resolved on arrival and resolved completely with 2 10mg boluses of Diltiazem. Initial labs including a troponin are unremarkable. 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 Family: Mother ue to [place] - unspecified Father due to an aneurysm and a CVA Allergies Allergy/AdvReac Type Severity Reaction Status Date / Time meperidine Allergy Mild OVER-SEDATION, Verified 06/09/18 13:14 N/V W/ SYNCOPE Home Medications Home Medications Medication Instructions Recorded Confirmed Type aspirin [Aspir-81] 81 mg PO DAILY 06/28/18 06/28/18 History atorvastatin 40 mg PO HS 06/28/18 06/28/18 History carvedilol 12.5 mg PO BID 06/28/18 06/28/18 History latanoprost 1 drp OPB HS 06/28/18 06/28/18 History lisinopril 10 mg PO DAILY 06/28/18 06/28/18 History metformin 500 mg PO BID 06/28/18 06/28/18 History timolol maleate 1 drp OPB DAILY 06/28/18 06/28/18 History warfarin 6 mg PO DAILY 06/28/18 06/28/18 History Past Med/Surg History Social History Feels Safe at Home: Yes Smoking Status: Never smoker Review of Systems Gen: Denies fevers, night sweats, rigors, fatigue, malaise, weight loss/gain ENT: Denies congestion, throat pain, hearing loss Eyes: Denies acute visual changes CV: CP - radiation in t arms, SOB, diaphoresis - pulsation in head Pulmonary: SOB with CP GI: Denies N/V, diarrhea, constipation Neuro: Denies acute or unilateral weakness, acute gait impairment, headache or acute visual changes Musculoskeletal: Denies joint pain, inflammation Endocrine: Denies polydipsia, polyuria Skin: Denies acute rashe or ulcers Physical Exam 2 Vital Signs (Past 24 Hours): Last Vital Signs Temp 36.9 C 06/28/18 21:02 Pulse 88 06/28/18 22:06 Resp 18 06/28/18 22:06 BP 119/77 06/28/18 22:06 Pulse Ox 95 06/28/18 22:06 Physical Exam: General: Pleasant, overweight, elderly male, AAO x 3, no distress ENT: No erythema or exudates, no thrush Eyes: WALLY, EOMI Head and neck: Normocephalic, atraumatic, No JVD, neck is supple. Chest/heart: Nontender, S1,2, irregular/tachy Lungs: CTAB, no wheezing or crackles Abdomen: Nontender, nondistended, BS+ Neuro: AAO x 3, speech is clear, no unilateral weakness or loss of sensation, coordination intact Musculoskeletal: No joint inflammation, muscle tenderness, FROM Skin: No acute rashes or ulcers Extremities: No clubbing, cyanosis, edema Results & Data Diagnostic Findings AF/RVR - rate ~140, lateral inversions
[2018-06-29] MEDS ORDERED: dilTIAZem HCl 125 MG in DEXTROSE 5% 100 ML IV SCH (00:36)
[2018-06-29] MEDS ORDERED: ONDANSETRON INJ 2 MG/ML 2 ML VIAL IV PRN (00:36)
[2018-06-29] MEDS ORDERED: MAGNESIUM HYDROXIDE SUSP 30 ML UDC PO PRN (00:36)
[2018-06-29] MEDS ORDERED: MoRPHine SULFATE 2 MG/ML CARP IV PRN (00:36)
[2018-06-29] MEDS ORDERED: dilTIAZem HCl 5 MG/ML 5 ML VIAL IV STA (00:36)
[2018-06-29] MEDS ORDERED: ALUMINUM/MAGNESIUM SUSP 30 ML UDC PO PRN (00:36)
[2018-06-29] MEDS ORDERED: POLYETHYLENE (MIRALAX) 17 GM PACK PO PRN (00:36)
[2018-06-29] MEDS ORDERED: ACETAMINOPHEN 325 MG TAB PO PRN (00:36)
[2018-06-29] MEDS ORDERED: NITROGLYCERIN SL 0.4 MG/TAB TAB SL PRN (00:36)
[2018-06-29] MEDS ORDERED: GLUCAGON FOR INJ 1 MG VIAL IM PRN (03:08)
[2018-06-29] MEDS ORDERED: DEXTROSE 50% 50 ML SYRINGE IV PRN (03:08)
[2018-06-29] MEDS ORDERED: GLUCOSE 10 TABS/TUBE PO PRN (03:08)
[2018-06-29] MEDS ORDERED: CARBOHYDRATES FOR HYPOGLYCEMIA PO PRN (03:08)
[2018-06-29] MEDS ORDERED: GLUCOSE 40% GEL 15 GM TUBE PO PRN (03:08)
[2018-06-29 04:22] LABS: Appearance Urine Clear (Clear); Bilirubin Urine Negative (Negative); Color Urine Yellow; Glucose Urine UA Negative (Negative); Ketones Urine Negative (Negative); Leukocyte Esterase Urine Negative (Negative); Nitrite Urine Negative (Negative); Protein Urine Negative (Negative); Specific Gravity Urine 1.014 (1.000-1.030); Urobilinogen Urine Negative (Negative); pH Urine 5.5 (4.5-7.5)
[2018-06-29] MEDS ORDERED: INSULIN ASPART 100 UNITS/ML 3 ML PEN SC SCH ×2 (06:00→11:30)
[2018-06-29] MEDS ORDERED: SODIUM CHLORIDE 0.9% 1000ML 1,000 ML IV SCH (08:15)
[2018-06-29] MEDS ORDERED: CARVEDILOL 12.5 MG TAB PO SCH (09:00)
[2018-06-29] MEDS ORDERED: ASPIRIN 81 MG ECTAB PO SCH (09:00)
[2018-06-29] MEDS ORDERED: TIMOLOL MALEATE 0.25% OP SOLN 5 ML BTL OPB SCH (09:00)
--- NOTE | 2018-06-29 09:03 | Cardiology Consultation ---
Date of Consultation June 29, 2018 Assessment & Plan (1) Atrial fibrillation: 2. 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 Type 2 diabetes on oral therapy 5. Dyslipidemia Patient here with new onset atrial fibrillation with RVR with associated chest pain. No evidence of ACS or change in LV function. This morning largely asymptomatic and rate control improved on diltiazem drip. Discussed options with patient including rate control with additional AV demetri agent versus attempt at electrical cardioversion. Patient would prefer to proceed with cardioversion. We will plan on electrical cardioversion later this morning with anesthesia. Has been therapeutic on Coumadin for months. In the interim continue diltiazem infusion. Likely home on increased carvedilol to 25 mg twice daily, reduced lisinopril and continued anticoagulation. Thank you for allowing us to participate in the care of this patient. Please contact with any questions. History of Present Illness Attending Physician: Akil Burroughs, History of Present Illness Mr. 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 Patient states was in his usual state of health until 6:30 PM yesterday evening when all of a sudden developed chest pain with numbness radiating down his left arm, left leg. This was associated with pounding in his chest/head. Presented to [facility] ED and heart rate noted to be in the 150s-160s. Received multiple doses of IV diltiazem and placed on a diltiazem drip. Chest x-ray unremarkable. CT of head and neck unremarkable after recent fall. EKG showed atrial fibrillation with RVR to heart rate of 139. Troponins negative. Echocardiogram this a.m. showed preserved LV function with no regional wall motion abnormalities. No significant valvular heart disease. Overnight heart rates up intermittently to the 120s, diltiazem now at 10 mg/h. Patient chest pain-free this a.m. No other new concerns. INR this morning 2.5. Per review of recent INRs from the outpatient setting has always been therapeutic. Allergies Allergy/AdvReac Type Severity Reaction Status Date / Time meperidine Allergy Mild OVER-SEDATION, Verified 06/09/18 13:14 N/V W/ SYNCOPE Home Medications Home Medications Medication Instructions Recorded Confirmed Type aspirin [Aspir-81] 81 mg PO DAILY 06/28/18 06/28/18 History atorvastatin 40 mg PO HS 06/28/18 06/28/18 History carvedilol 12.5 mg PO BID 06/28/18 06/28/18 History latanoprost 1 drp OPB HS 06/28/18 06/28/18 History lisinopril 10 mg PO DAILY 06/28/18 06/28/18 History metformin 500 mg PO BID 06/28/18 06/28/18 History timolol maleate 1 drp OPB DAILY 06/28/18 06/28/18 History warfarin 6 mg PO DAILY 06/28/18 06/28/18 History Patient History Medical History Atrial fibrillation Social History Current Living Situation: Spouse Other Information That Helps Us Care for You: No Feels Safe at Home: Yes Safety Concerns: Feels Safe At This Time Smoking Status: Never smoker Do You Dip or Chew Tobacco: No Hx Alcohol Use: No Hx Substance Use: No Beliefs That Will Affect Care: None Preferred Language: Uzbek Communication Ability: Effective Councilor Required: No Review of Systems 10 point review of systems was completed and was otherwise negative unless stated in HPI Physical Exam 2 Vital Signs (Past 24 Hours): Last Vital Signs Temp 36.8 C 06/29/18 04:17 Pulse 81 06/29/18 04:17 Resp 18 06/29/18 04:17 BP 114/64 06/29/18 04:17 Pulse Ox 93 06/29/18 04:17 Physical Exam: General: Comfortable, no acute distress Eyes: Sclerae anicteric, extraocular movements intact HENT: Oropharynx clear mucous membranes moist Neck: Normal carotid upstrokes, no bruits. No JVD. Lungs: Clear to auscultation bilaterally, no rhonchi or wheezes Cardiac: Irregularly irregular, no appreciable murmurs Vascular: 2+ radial, DP and PT pulses. Abdomen: Soft, nontender, nondistended, positive bowel sounds. Extremities: Well perfused, no peripheral edema Skin: No rashes or lesions. Neuro: Nonfocal Psych: Alert orient x3, normal affect and mood _ (1) Atrial fibrillation Atrial fibrillation type: unspecified Qualified Code(s): I48.91 - Unspecified atrial fibrillation
--- NOTE | 2018-06-29 09:28 | Anesthesiology Consultation ---
Date of Service June 29, 2018 Assessment & Plan (1) Encounter for pre-operative examination: Chart Review Chart Review: Acceptable Risk for Surgery and Patient NOT seen in Pre Admission Testing Consults Requested none ASA ASA3 Proposed Anesthesia Anesthesia Type: MAC Risk / Benefits Reviewed With: PT / POA / Parent / Guardian, Accepts Plan and Informed Consent Obtained History Height/Weight Height: 5 ft 8 in Weight: 97 kg Allergies Allergy/AdvReac Type Severity Reaction Status Date / Time meperidine Allergy Mild OVER-SEDATION, Verified 06/09/18 13:14 N/V W/ SYNCOPE Medications Home Medications Medication Instructions Recorded Confirmed Last Taken aspirin [Aspir-81] 81 mg PO DAILY 06/28/18 06/28/18 06/28/18 atorvastatin 40 mg PO HS 06/28/18 06/28/18 Unknown carvedilol 12.5 mg PO BID 06/28/18 06/28/18 06/28/18 08:30 latanoprost 1 drp OPB HS 06/28/18 06/28/18 Unknown lisinopril 10 mg PO DAILY 06/28/18 06/28/18 06/28/18 metformin 500 mg PO BID 06/28/18 06/28/18 06/28/18 08:30 timolol maleate 1 drp OPB DAILY 06/28/18 06/28/18 06/28/18 warfarin 6 mg PO DAILY 06/28/18 06/28/18 06/28/18 08:30 Active Medications Generic Name Dose Route Start Last Admin Trade Name Freq PRN Reason Stop Dose Admin Aspirin 81 mg 06/29/18 09:00 06/29/18 07:52 Ecotrin Ectab PO 07/29/18 08:59 81 mg DAILY AILEEN Administration Carvedilol 12.5 mg 06/29/18 09:00 06/29/18 07:53 Coreg PO 07/29/18 08:59 12.5 mg BID AILEEN Administration Diltiazem HCl 125 mg/ Dextrose 125 mls @ 5 mls/hr 06/29/18 00:36 06/29/18 07: 11 IV 07/29/18 00:35 5 mg/hr .Q24H AILEEN 5 mls/hr Titration Protocol 5 MG/HR Sodium Chloride 1,000 mls @ 150 mls/hr 06/29/18 08:15 06/29/18 09:06 Nss 1000ml IV 06/29/18 14:54 150 mls/hr .[id number] AILEEN Administration Insulin Aspart 0 units 06/29/18 06:00 06/29/18 06:39 Novolog Flexpen SC 07/29/18 05:59 Not Given Q6 AILEEN Timolol Maleate 1 drops 06/29/18 09:00 06/29/18 07:53 Timoptic 0.25% Oph OPB 07/29/18 08:59 1 drops DAILY AILEEN Administration Past Medical History Medical History Atrial fibrillation Social History Smoking Status: Never smoker Do You Dip or Chew Tobacco: No Hx Alcohol Use: No Hx Substance Use: No substance use type: does not use Physical Exam Vital Signs Last Vital Signs Temp 36.8 C 06/29/18 04:17 Pulse 81 06/29/18 04:17 Resp 18 06/29/18 04:17 BP 114/64 06/29/18 04:17 Pulse Ox 93 06/29/18 04:17 Testing Laboratory Results 06/28/18 21:16 06/28/18 21:16 PT 24.1 Seconds (9.0-12.0) H 06/28/18 21:16 INR 2.5 (0.9-1.1) H 06/28/18 21:16 APTT 31.9 Seconds (21.0-31.0) H 06/28/18 21:16 Urine Color Yellow 06/29/18 03:30 Urine Appearance Clear (Clear) 06/29/18 03:30 Urine pH 5.5 (4.5-7.5) 06/29/18 03:30 Ur Specific [place] 1.014 (1.000-1.030) 06/29/18 03:30 Urine Protein Negative (Negative) 06/29/18 03:30 Urine Glucose (UA) Negative (Negative) 06/29/18 03:30 Urine Ketones Negative (Negative) 06/29/18 03:30 Urine Nitrite Negative (Negative) 06/29/18 03:30 Ur Leukocyte Esterase Negative (Negative) 06/29/18 03:30 06/29/18 06/29/18 06:35 00:34 POC Glucose 111 H 121 H
[2018-06-29] MEDS ORDERED: ePHEDrine sulfate 50 MG/ML AMP IV PRN (09:35)
[2018-06-29] MEDS ORDERED: ATROPINE SULFATE 0.1 MG/ML 10ML SYR IV PRN (09:35)
--- NOTE | 2018-06-29 09:50 | Cardioversion ---
Date of Service June 29, 2018 Electrical Cardioversion Rpt Electrical Cardioversion Report Indication: New onset atrial fibrillation with RVR Anesthesia: Propofol per Dr. Ricks Procedure: �Pads placed in standard AP position �Synchronized cardioversion with 1 shock at 200 J �Return to sinus rhythm with heart rates in the 60s. �Patient tolerated procedure well Summary: 1. Successful synchronized electrical cardioversion to normal sinus rhythm.
--- NOTE | 2018-06-29 09:56 | Anesthesiology Progress Note ---
Date of Service June 29, 2018 Anesthesia Post Procedure Vital Signs Vital Signs: Temp Pulse Pulse Pulse Resp BP BP 06/29/18 04:17 36.8 C 81 18 114/64 06/29/18 01:35 102 H 102 H 18 125/59 L 06/29/18 01:10 93 H 18 130/68 06/29/18 01:00 142 H 18 116/60 06/29/18 00:15 36.9 C 112 H 18 06/28/18 23:48 113 H 18 06/28/18 22:06 88 18 06/28/18 21:54 116 H 18 06/28/18 21:22 06/28/18 21:02 36.9 C 159 H 22 154/112 H BP Pulse Ox 06/29/18 04:17 93 06/29/18 01:35 06/29/18 01:10 06/29/18 01:00 94 06/29/18 00:15 158/100 H 94 06/28/18 23:48 113/72 95 06/28/18 22:06 119/77 95 06/28/18 21:54 159/83 H 96 06/28/18 21:22 96 06/28/18 21:02 96 Notes Mental Status: alert / awake / arousable Patient Amnestic to Procedure: Yes Nausea / Vomiting: adequately controlled Pain: adequately controlled Airway Patency, RR, SpO2: stable & adequate BP & HR: stable & adequate Hydration State: stable & adequate Anesthetic Complications: no major complications apparent and Pt Satisfied with anesthetic care
[2018-06-29] MEDS ORDERED: Nursing to Pharmacy Communication ONE (11:17)
--- NOTE | 2018-06-29 15:01 | Discharge Summary ---
Date of Service June 29, 2018 Admission HPI Per Admitting Provider 78 y/o M Hx HTN, HLD, DM II, prostate CA, glaucoma, DVT/PE. Pt developed sharp central CP radiating to his L arm, accompanied by SOB, diaphoresis and a sensation of a pounding pulse in his head. He presented to the ER where rapid AF was apparent on monitor. His symptoms had largely resolved on arrival and resolved completely with 2 10mg boluses of Diltiazem. Initial labs including a troponin are unremarkable. 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 Family: Mother ue to [place] - unspecified Father due to an aneurysm and a CVA Principal Diagnosis Atrial Fibrillation Discharge Exam Constitutional WD/WN, vitals as above Respiratory normal respiratory effort; no respiratory distress Auscultation: lungs clear to auscultation bilaterally Cardiovascular Rate/Rhythm: regular rate; + abnormal rhythm (irregularly irregular rhythm) Heart Sounds: normal S1 and normal S2; no murmur and no cardiac rub Vessels: radial pulses present Extremities: no calf tenderness and no pedal edema Gastrointestinal (Abdomen) Percussion/Palpation: abdomen soft; abdomen nontender, no guarding and abdomen not rigid Discharge Data Allergies Allergy/AdvReac Type Severity Reaction Status Date / Time meperidine Allergy Mild OVER-SEDATION, Verified 06/09/18 13:14 N/V W/ SYNCOPE Consultations 06/28/18 22:40 ED Decision to Admit Stat 06/29/18 00:36 Consult Cardiology Routine Procedures Performed Operation Date: 06/29/18 09:30 Actual Procedures p Cardioversion - Derrick Mas MD Ordered Studies 06/28/18 21:14 CT head/brain wo con Stat 06/28/18 21:17 CT cervical spine wo con Stat Hospital Course (1) Atrial fibrillation with RVR: Mr. Jones is a 78 year old gentleman with a past medical history of HTN, HLD, DM II, prostate CA, glaucoma, prior DVT/PE. Pt developed sharp central CP radiating to his L arm, accompanied by SOB, diaphoresis and a sensation of a pounding pulse in his head. He presented to the ER where rapid AF was apparent on monitor. His symptoms had largely resolved on arrival and resolved completely with 2 10mg boluses of Diltiazem. Initial labs including a troponin were unremarkable. 1) Chest pain - resolved - likely related to rapid AF - ECHO negative for regional wall motion abnormalities. Troponin x3 was negative. - continue home ASA and atorvastatin 2) Rapid AF - Initially placed on a diltiazem drip - Patient underwent cardioversion with Dr. Mas on 06/29/2018, and reverted to sinus rhythm - Continue carvedilol at an increased dose of 25 mg twice daily - Pt's INR is therapeutic on current Coumadin dose (2.5) 4) HTN - Decrease lisinopril from 10 mg to 5 mg daily given increased dose of carvedilol - Follow-up with primary care provider Total Time Total Time Spent Total Time Spent (In Minutes): >30 Discharge Plan Discharge Items Patient Disposition: Home - Self-Care Reason For Visit: CHEST PAIN - RAPID AF Discharge Diagnosis: Atrial Fibrillation Discharge Goals: Decrease discomfort, Improve disease control and Improve function Activity: Resume your previous activity Non-emergency contact: Primary Care Provider Call non-emergency contact if: you have any medication questions, your symptoms worsen and you have a fever Follow-up/Referrals: Derrick Mariscal MD [Primary Care Provider] - 07/06/18 11:00 am (Please, follow up at Dr. Mariscal's office with his congressional assistant, Tamar Montero PA-C , on FridayJuly 06 at 11:00 am. *If you need to change this appointment, call the office at [phone].) Diet: Heart Healthy Addtl Provider Instructions: Mr. Jones, you were admitted to [facility] due to chest pain and palpitations. Your heart rate was found to be fast, and your heart was beating irregularly in a rhythm called atrial fibrillation. You was seen by your operating room technologist, Dr. Mas, who performed a cardioversion [procedure where they restore your heart to its regular rhythm]. He made some alterations to your medications, including increasing your dose of carvedilol. We will also be lowering your dose of lisinopril from 10 mg a day to 5 mg a day. With regards to your chest pain and palpitations, this was likely due to the atrial fibrillation. You had a blood test called troponin, which is an enzyme that measures damage to your heart. This enzyme was tested on 3 separate occasions and came back within normal levels. You also had an ultrasound of your heart, which did not show any damage to your heart. If you experience chest pain, palpitations, or shortness of breath, please see a doctor. Otherwise, you may follow up with your regular doctor in clinic. An appointment has been made for you on July 06. Prescriptions: New carvedilol 25 mg tablet 25 mg PO Q12H 30 Days Qty: 60 RF: 0 lisinopril 5 mg tablet 5 mg PO DAILY Qty: 30 RF: 0 Continue latanoprost 0.005 % drops 1 drp OPB HS RF: 0 atorvastatin 40 mg tablet 40 mg PO HS RF: 0 metformin 500 mg tablet 500 mg PO BID RF: 0 aspirin [Aspir-81] 81 mg Tablet,Delayed Release (Dr/Ec) 81 mg PO DAILY RF: 0 warfarin 6 mg tablet 6 mg PO DAILY RF: 0 timolol maleate 0.5 % drops 1 drp OPB DAILY RF: 0 Discontinued carvedilol 12.5 mg tablet 12.5 mg PO BID RF: 0 lisinopril 10 mg tablet 10 mg PO DAILY RF: 0 Stand-Alone Forms: [facility] Discharge Orders: Discharge Order (Routine); Ordered 06/29/18 Ordered By: Luis Palm Admission Data Admit Date/Time: 06/28/18 23:15 Attending Provider: Akil Burroughs Admit Provider: Bernabe Park Primary Care Provider: Derrick Mariscal Other Providers: Krystyna Tariq ; Derrick Mas ; Bernabe Park Service: Telemetry Other Interventions: Discharge Summary Assessment (RN) Last Done: 06/29/18 15:57 DC Date/Time DO NOT enter until pt leaves facility: 06/29/18 16:20 Supervising Physician Co-Signing Physician Notes I personally examined the patient and verified all morgan points of history and exam, discussed case, and agree with decision making with Dr Palm. Feeling better after cardioversion, would like to go home. Extensive discussion with patient and family outlining atrial fibrillation in general, the course of his hospital stay, as well as questions about the future. Extensively discussed the increase in medications and symptoms to watch for. They expressed good understanding and all asked very good questions. Appreciate cardiology input Vitals noted, in general he is awake alert oriented x3 pleasant no acute distress. HEENT normal cephalic atraumatic mucous members are moist. Lungs are unlabored no accessory muscle use. He is sinus in the mid 70s on the monitor A. fib/RVR�now back in sinus status post cardioversion. Home on increased dose of Coreg and current dose of Coumadin. Close follow-up. Resident Activity Tracking Resident Involvement: Resident Care Provided Care Provided: Adult Hospital Medicine
[2018-06-29] MEDS ORDERED: WARFARIN SOD 6 MG TAB PO SCH (16:00)
[2018-06-29] MEDS ORDERED: LATANOPROST 0.005% OP SOLN 2.5 ML BTL OPB SCH (21:00)
[2018-06-29] MEDS ORDERED: ATORVASTATIN 40 MG TAB PO SCH (21:00)
== END 2018-06-29 16:20 | disposition home or self-care (01) | DRG 309 ==
LOC: ED 21:00 → 2E 23:15 → SUATTDRO 23:15 → 2E 06-29 00:01

== ENCOUNTER 2018-08-26 10:48 | Inpatient (IN) ==
[2018-08-26] MEDS ORDERED: SODIUM CHLORIDE 0.9% 500 ML IV SCH (11:15)
[2018-08-26 11:34] LABS: Basophils # (auto) 0.02 K/uL (0-0.2); Basophils % (auto) 0.3 %; Eosinophils # (auto) 0.14 K/uL (0-0.5); Hematocrit (blood only) 35.3 % (42-52); Hemoglobin 12.3 g/dL (14.0-18.0); Immature Granulocytes # (auto) 0.01 K/uL (0.00-0.02); Immature Granulocytes % (auto) 0.1 %; Lymphocytes # (auto) 1.01 K/uL (1.2-3.4); Lymphocytes % (auto) 14.7 %; Mean Corpuscular Hgb Conc 34.8 g/dL (32-36); Mean Corpuscular Volume 90.5 fL (80-100); Mean Platelet Volume 9.5 fL (7.4-10.4); Monocytes # (auto) 0.67 K/uL (0.11-0.59); Monocytes % (auto) 9.8 %; Neutrophils % (auto) 73.1 %; Platelet Count 144 K/uL (130-400); RDW Coefficient of Variation 12.8 % (11.5-14.5); RDW Standard Deviation 42.2 fL (36.4-46.3); White Blood Count 6.85 K/uL (4.8-10.8)
[2018-08-26] MEDS ORDERED: ACETAMINOPHEN 1,000 MG/100 ML VIAL IV STA (11:36)
[2018-08-26 11:53] LABS: Albumin Level 3.2 gm/dl (3.4-5.0); BUN Creatinine Ratio 17.4 (10-20); Calcium 8.6 mg/dl (8.5-10.1); Creatinine Clr Calc Pharmacy 66.3 ml/min; Est GFR (African American) 80.6; Est GFR (Non-African American) 69.6; Potassium 4.7 mmol/L (3.5-5.1)
[2018-08-26 11:55] LABS: Albumin Globulin Ratio 0.9 (0.9-2); Bilirubin,Total 0.8 mg/dl (0.2-1); Globulin 3.7 gm/dl (2.5-4.0); Total Protein 6.9 gm/dl (6.4-8.2)
[2018-08-26 11:57] LABS: INR 5.2 (0.9-1.1); Prothrombin Time 47.4 Seconds (9.0-12.0)
[2018-08-26 12:39] LABS: Influenza A virus by PCR Neg for Influ A (Neg); Influenza B virus by PCR Neg for Influ B (Neg)
[2018-08-26] MEDS ORDERED: IOVERSOL 100ml IV PRN (13:08)
--- NOTE | 2018-08-26 13:24 | CT Scan Report ---
CT SCAN OF THE ABDOMEN AND PELVIS WITH IV CONTRAST CLINICAL HISTORY: Right lower quadrant abdominal pain. COMPARISON STUDY: Abdominal CT dated 01/28/2017. TECHNIQUE: Following the IV administration of 94 cc of Optiray 320, CT scan of the abdomen and pelvi s is performed from the lung bases to the proximal femora. Images are reviewed in the axial, sagittal , and coronal planes. IV contrast was administered without complication. A dose lowering technique wa s utilized adhering to the principles of ALARA. CT DOSE: 886.89 mGy.cm FINDINGS: Lung bases: The heart is enlarged and without pericardial effusion. There is bibasilar scarring/atele ctasis. Minimal patchy groundglass consolidation is identified in the right lower lobe. No pleural ef fusion is identified. Scattered calcified granulomas are observed. There is a tiny hiatal hernia. Liver: The contrast-enhanced liver is normal in size, contour, and attenuation. There is no intrahepa tic biliary ductal dilatation. The hepatic veins and portal veins are patent. 2.5 cm and 1.1 cm low-a ttenuation hepatic lesions are unchanged from previous and likely represent hemangiomas. Gallbladder: Unremarkable. Spleen: Normal in size and attenuation. Pancreas: Atrophic and grossly unremarkable. Adrenal glands: Unremarkable. Kidneys: The contrast enhanced kidneys demonstrate cortical atrophy and are without hydronephrosis. T he kidneys enhance symmetrically. Scattered subcentimeter cortical hypodensities likely represent cys ts but are too small for definitive characterization. Abdominal vasculature: The abdominal aorta is normal in course and caliber noting moderate atheroscle rotic calcification. Bowel: There is moderate colonic fecal retention. No bowel obstruction is seen. The appendix is well -visualized and normal. Peritoneum: There is no intraperitoneal free air or abdominal ascites. There is a large rectus sheath hematoma seen in the pelvis on the right. This measures approximately 13 x 6 x 9 cm and contains a h ematocrit level. This is best seen on axial image #345. Active extravasation is seen on image #358. Lymphadenopathy: None. Pelvic viscera: The prostate gland is diminutive and heterogeneous. The bladder wall is mildly thicke daniel and trabeculated indicating chronic outlet obstruction. Skeletal structures: The skeletal structures are osteopenic. There is a mild compression deformity of L1. There is moderate to advanced lumbosacral spondylosis. Healed rib fractures are seen bilaterally . No lytic or blastic lesions are seen. IMPRESSION: 1. There is a large right rectus sheath hematoma identified as detailed above, which demonstrates a s mall focus of active extravasation. 2. Cardiomegaly. 3. Minimal patchy groundglass consolidation is seen in the right lower lobe. Correlate clinically for evidence of a mild infectious/inflammatory pneumonitis. 4. Additional findings as above. Electronically signed by: Saleem Doll M.D. 08/26/2018 1:23 PM
[2018-08-26] MEDS ORDERED: PHYTONADIONE 10 MG in SODIUM CHLORIDE 0.9% 50 ML IV ONE (14:44)
[2018-08-26 15:11] LABS: Appearance Urine Clear (Clear); Bilirubin Urine Negative (Negative); Blood Urine Negative (Negative); Color Urine Yellow; Glucose Urine UA Negative (Negative); Ketones Urine Negative (Negative); Leukocyte Esterase Urine Negative (Negative); Nitrite Urine Negative (Negative); Protein Urine Negative (Negative); Specific Gravity Urine > 1.045 (1.000-1.030); Urobilinogen Urine Negative (Negative)
--- NOTE | 2018-08-26 15:13 | Surgery Consultation ---
Date of Consultation August 26, 2018 Assessment & Plan (1) Rectus sheath hematoma: 13 cm rectus sheath hematoma. Being admitted to medicine for monitoring and reversal of INR. Hgb currently 12.3 from 14.5 (recent admission for chest pain). No surgical intervention planned. Will follow, if continues to bleed would recommend transfer for evaluation by IR. History of Present Illness History of Present Illness 78 y/o male on coumadin for A-fib with RLQ abdominal pain this morning. No recent injury. INR was 3.5 last week. He has had URI, had some coughing and sneezing. Was referred to ED by PCP. Allergies Allergy/AdvReac Type Severity Reaction Status Date / Time meperidine Allergy Mild OVER-SEDATION, Verified 08/26/18 11:59 N/V W/ SYNCOPE Home Medications Home Medications Medication Instructions Recorded Confirmed Type aspirin [Aspir-81] 81 mg PO DAILY 06/28/18 08/26/18 History atorvastatin 40 mg PO HS 06/28/18 08/26/18 History latanoprost 1 drp OPB HS 06/28/18 08/26/18 History metformin 500 mg PO BID 06/28/18 08/26/18 History timolol maleate 1 drp OPB DAILY 06/28/18 08/26/18 History warfarin 6 mg PO DAILY 06/28/18 08/26/18 History lisinopril 5 mg PO DAILY #30 tab 06/29/18 08/26/18 Rx carvedilol 25 mg PO BID 08/26/18 08/26/18 History leuprolide (4 month) 30 mg SUBCUT Q16W 08/26/18 08/26/18 History Patient History Medical History No pertinent family history Atrial fibrillation with RVR (Acute) Encounter for pre-operative examination Atrial fibrillation (Acute) Rapid atrial fibrillation Prostate cancer (Chronic) "Rising PSA Status post biopsy revealing adenocarcinoma Jeannette 3+3 Status post hormonal suppression Status post completion of radiation therapy 12/17/2002 received 7920 cGy Slow rise of the PSA" On 10/17/15 15:50 Miladys Price wrote "Rising PSA Status post biopsy revealing adenocarcinoma Cameron 3+3 Status post hormonal suppression Status post completion of radiation therapy 12/17/2002 received 7920 cGy" Atrial fibrillation Surgical History No pertinent past surgical history Family History Other No pertinent family history Social History Preferred Language: Portuguese Beliefs That Will Affect Care: None Current Living Situation: Spouse Feels Safe at Home: Yes Smoking Status: Never smoker Hx Alcohol Use: No Hx Substance Use: No Review of Systems Constitutional: no fever and no chills Physical Exam Vital Signs (Past 24 Hours): Last Vital Signs Temp 37.0 C 08/26/18 10:57 Pulse 68 08/26/18 14:00 Resp 19 08/26/18 14:00 BP 151/85 H 08/26/18 14:00 Pulse Ox 95 08/26/18 14:00 Gastrointestinal (Abdomen): Percussion/Palpation: + abdomen tender (RLQ) and abdomen soft; no hernia (has diastasis recti) (1) Rectus sheath hematoma Encounter type: initial encounter Qualified Code(s): S30.1XXA - Contusion of abdominal wall, initial encounter
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
[2018-08-26] MEDS ORDERED: GLUCOSE 40% GEL 15 GM TUBE PO PRN (17:26)
[2018-08-26] MEDS ORDERED: GLUCOSE 10 TABS/TUBE PO PRN (17:26)
[2018-08-26] MEDS ORDERED: DEXTROSE 50% 50 ML SYRINGE IV PRN (17:26)
[2018-08-26] MEDS ORDERED: GLUCAGON FOR INJ 1 MG VIAL SQ PRN (17:26)
[2018-08-26] MEDS ORDERED: CARBOHYDRATES FOR HYPOGLYCEMIA PO PRN (17:26)
[2018-08-26] MEDS: ACETAMINOPHEN 325 MG TAB PO PRN ×2 (18:17→22:50)
[2018-08-26] MEDS: SODIUM CHLORIDE 0.9% 1000ML 1,000 ML IV SCH (18:21)
--- NOTE | 2018-08-26 19:33 | History & Physical Report ---
Date of Service August 26, 2018 Assessment & Plan (1) Rectus sheath hematoma: CT a/p on 08/26 showed "large right rectus sheath hematoma with small focus of active extravasation." Blood pressure stable. Seen by surgery with no plan for intervention at this time. - Baseline hgb is ~14; hgb was 12 on admission. - INR was 5.7 on admission; reversed with vitamin K IV 10mg x 1 in the ED - Trend hgb & INR - Abdominal binder - If hemoglobin drops or vital signs change, will need transfer to [facility] - Pain control (2) Atrial fibrillation: Normally on beta-navin for rate control and warfarin for anticoagulation. - Continue carvedilol - Hold warfarin (3) Consolidation of right lower lobe of lung: Minimal opacity in the RLL on CT a/p on 08/26. No fever, no vital sign changes, no leukocytosis. No subjective cough or shortness of breath. - Incentive spirometry - Hold antibiotics (4) Hypertension: BP was 150/80 in the ED and still 160/80. - Continue lisinopril and beta-navin (5) Prostate cancer: Active prostate cancer on leuprolide. 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 Patient reports abdominal pain that has been bothering him for 2-3 weeks; however this morning he notes the pain was significantly worse than prior prior days. He otherwise is completely asymptomatic. He denies shortness of breath, chest pain, nausea, vomiting, headache, lightheaded, dizziness, or any other symptom. In the ED, CT abdomen pelvis showed a large right rectus sheath hematoma with a small focus of active extravasation. Allergies Allergy/AdvReac Type Severity Reaction Status Date / Time meperidine Allergy Mild OVER-SEDATION, Verified 08/26/18 11:59 N/V W/ SYNCOPE Home Medications Home Medications Medication Instructions Recorded Confirmed Type aspirin [Aspir-81] 81 mg PO DAILY 06/28/18 08/26/18 History atorvastatin 40 mg PO HS 06/28/18 08/26/18 History latanoprost 1 drp OPB HS 06/28/18 08/26/18 History metformin 500 mg PO BID 06/28/18 08/26/18 History timolol maleate 1 drp OPB DAILY 06/28/18 08/26/18 History warfarin 6 mg PO DAILY 06/28/18 08/26/18 History lisinopril 5 mg PO DAILY #30 tab 06/29/18 08/26/18 Rx carvedilol 25 mg PO BID 08/26/18 08/26/18 History leuprolide (4 month) 30 mg SUBCUT Q16W 08/26/18 08/26/18 History Past Med/Surg History Medical History Atrial fibrillation with RVR (Acute) Prostate cancer (Chronic) "Rising PSA Status post biopsy revealing adenocarcinoma [place] 3+3 Status post hormonal suppression Status post completion of radiation therapy 12/17/2002 received 7920 cGy Slow rise of the PSA" On 10/17/15 15:50 Miladys Price wrote "Rising PSA Status post biopsy revealing adenocarcinoma Je[place] 3+3 Status post hormonal suppression Status post completion of radiation therapy 12/17/2002 received 7920 cGy" Atrial fibrillation (Inactive) Encounter for pre-operative examination (Inactive) No pertinent family history (Inactive) Rapid atrial fibrillation (Inactive) Hypertension Atrial fibrillation Surgical History No pertinent past surgical history (Inactive) Family History Mother Cancer Social History Preferred Language: Hebrew Communication Ability: Effective Beliefs That Will Affect Care: Congregation Current Living Situation: Spouse Other Information That Helps Us Care for You: No Feels Safe at Home: Yes Safety Concerns: Feels Safe At This Time Smoking Status: Never smoker Hx Alcohol Use: No Hx Substance Use: No Review of Systems Constitutional: no fever, no chills and no sweats Eyes: no diplopia Ear, Nose, Mouth, Throat: no ear trauma, no nasal discharge and no dental pain Respiratory: no cough, no chest congestion and no dyspnea Cardiovascular: no chest pain, no dyspnea on exertion, no palpitations and no syncope Gastrointestinal: + abdominal pain; no belching, no nausea, no vomiting, no constipation, no diarrhea/loose stools, no blood in stools and no melena Musculoskeletal: no back pain, no joint pain and no muscle weakness Integumentary: no rash, no skin ulcer and no erythema Neurologic: no generalized weakness, no loss of sensation, no numbness and no paresthesia Psychiatric: no depression and no anxiety Endocrine: no fatigue, no polydipsia and no polyphagia Physical Exam Vital Signs (Past 24 Hours): Last Vital Signs Temp 37.1 C 08/26/18 17:29 Pulse 67 08/26/18 17:29 Resp 16 08/26/18 17:29 BP 157/85 H 08/26/18 17:29 Pulse Ox 95 08/26/18 17:29 Constitutional: WD/WN, vitals as above Eyes: EOM intact bilaterally; no conjunctival abnormality ENMT: external ear and nose normal, oropharynx normal Neck: trachea midline, no thyromegaly normal visual inspection Respiratory: normal respiratory effort, lungs clear to auscultation no respiratory distress Cardiovascular: RRR, no murmur, no edema Gastrointestinal (Abdomen): Inspection/Auscultation: abdomen normal to inspection and normal bowel sounds; abdomen not distended and no abdominal edema Percussion/Palpation: + abdomen tender (RLQ) and abdomen soft; no guarding and abdomen not rigid Musculoskeletal: no cyanosis or clubbing, extremities motor strength 5/5 Skin: no rashes, warm and dry Neurologic: moves all extremities and awake Psychiatric: Orientation: alert, oriented to person and cooperative (1) Rectus sheath hematoma Encounter type: initial encounter Qualified Code(s): S30.1XXA - Contusion of abdominal wall, initial encounter
[2018-08-26] MEDS ORDERED: COUGH DROP (SUGAR FREE) LOZ 24 LOZ/1 BOX BUCCAL PRN (20:04)
[2018-08-26] MEDS ORDERED: MoRPHine SULFATE 4 MG/ML 1 ML CARP\\VIAL IV PRN (20:30)
[2018-08-26] MEDS ORDERED: hydrOXYzine HCl 10 MG TAB PO PRN (20:30)
[2018-08-26] MEDS: LATANOPROST 0.005% OP SOLN 2.5 ML BTL OPB SCH (21:22)
[2018-08-26] MEDS: ATORVASTATIN 40 MG TAB PO SCH (21:22)
[2018-08-26] MEDS: CARVEDILOL 25 MG TAB PO SCH (21:22)
[2018-08-26] MEDS: INSULIN ASPART 100 UNITS/ML 3 ML PEN SC SCH (21:23)
[2018-08-27] MEDS: SODIUM CHLORIDE 0.9% 1000ML 1,000 ML IV SCH ×2 (05:59→17:01)
[2018-08-27 07:28] LABS: Hematocrit (blood only) 32.2 % (42-52); Hemoglobin 11.1 g/dL (14.0-18.0); Mean Corpuscular Hgb Conc 34.5 g/dL (32-36); Mean Corpuscular Volume 90.7 fL (80-100); Mean Platelet Volume 9.5 fL (7.4-10.4); Platelet Count 151 K/uL (130-400); RDW Coefficient of Variation 12.7 % (11.5-14.5); RDW Standard Deviation 42.1 fL (36.4-46.3); Red Blood Count 3.55 M/uL (4.7-6.1)
[2018-08-27 07:36] LABS: INR 1.3 (0.9-1.1); Prothrombin Time 12.8 Seconds (9.0-12.0)
[2018-08-27 07:42] LABS: BUN Creatinine Ratio 14.9 (10-20); Calcium 8.4 mg/dl (8.5-10.1); Creatinine Clr Calc Pharmacy 71.2 ml/min; Est GFR (African American) 87.9; Est GFR (Non-African American) 75.8; Magnesium 1.8 mg/dl (1.8-2.4); Potassium 4.1 mmol/L (3.5-5.1)
[2018-08-27] MEDS: TIMOLOL MALEATE 0.25% OP SOLN 5 ML BTL OPB SCH (08:03)
[2018-08-27] MEDS: CARVEDILOL 25 MG TAB PO SCH ×2 (08:04→21:24)
[2018-08-27] MEDS: LISINOPRIL 5 MG TAB PO SCH (08:05)
[2018-08-27 08:31] LABS: Estimated Average Glucose 126 mg/dl
[2018-08-27] MEDS: INSULIN ASPART 100 UNITS/ML 3 ML PEN SC SCH ×4 (09:52→21:43)
[2018-08-27] MEDS ORDERED: levoFLOXacin 750 MG TAB PO SCH (11:00)
--- NOTE | 2018-08-27 11:10 | Hospitalist Progress Note ---
Date of Service August 27, 2018 Assessment & Plan (1) Rectus sheath hematoma: CT a/p on 08/26 showed "large right rectus sheath hematoma with small focus of active extravasation." Blood pressure stable. Seen by surgery with no plan for intervention at this time. - Baseline hgb is ~14; hgb was 12 on admission Hb down to 11.0 today INR reversed, down to 1.3 less pain today, will continue to follow Hb, repeat this afternoon and in the morning continue binder if pain continues to improve and Hb stable tomorrow AM would consider discharge to home if Hb would drop quickly then he would need IR for potential embolization, no need for that currently (2) Atrial fibrillation: Normally on beta-navin for rate control and warfarin for anticoagulation. - Continue carvedilol - Hold warfarin, INR reversed to 1.3 this morning (3) Consolidation of right lower lobe of lung: more productive cough this morning, thick yellow sputum, coughing a lot will treat with Cefdinir and Zithromax x 5 days avoid quinolones due to multiple QT prolonging medications (4) Hypertension: BP was 150/80 in the ED and still 160/80. - Continue lisinopril and beta-navin (5) Prostate cancer: Active prostate cancer on leuprolide. 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 Subjective patient feeling well, less pain in abdomen this morning he is coughing a lot more this morning producing thick yellow-green sputum, no blood no fever or chills subjectively, no sweats eating well reviewed labs, INR is down to 1.3, Hb dropped slightly to 11 discussed starting antibiotics Review of Systems All systems reviewed & are unremarkable except as noted in HPI & below Respiratory: + cough, + pain with cough (in abdomen) and + sputum production (yellow green) Cardiovascular: no chest pain Gastrointestinal: + abdominal pain (right lower side) Physical Exam Vital Signs (Past 24 Hours): Last Vital Signs Temp 36.9 C 08/27/18 07:32 Pulse 68 08/27/18 07:32 Resp 18 08/27/18 07:32 BP 117/71 08/27/18 07:32 Pulse Ox 92 08/27/18 07:32 Constitutional: WD/WN, vitals as above + obese Eyes: PERRL, conjunctivae normal, anicteric sclerae ENMT: external ear and nose normal, oropharynx normal Neck: trachea midline, no thyromegaly Respiratory: normal respiratory effort, lungs clear to auscultation Cardiovascular: RRR, no murmur, no edema Gastrointestinal (Abdomen): Inspection/Auscultation: abdomen normal to inspection and normal bowel sounds Percussion/Palpation: + abdomen tender (RLQ) and abdomen soft Musculoskeletal: no cyanosis or clubbing, extremities motor strength 5/5 Skin: no rashes, warm and dry Neurologic: patellar DTR's 2+ bilat, sensation intact and PERRL, EOMI, accommodation nl, no face palsy, no dysarthria Psychiatric: A+Ox3, euthymic affect Lymphatic: no cervical or axillary lymphadenopathy Results & Data Laboratory Results Laboratory Results - last 24 hr 08/26/18 08/26/18 08/26/18 11:16 11:16 11:16 WBC 6.85 RBC 3.90 L Hgb 12.3 L Hct 35.3 L MCV 90.5 MCH 31.5 MCHC 34.8 RDW Std Deviation 42.2 RDW Coeff of Mickey 12.8 Plt Count 144 MPV 9.5 Immature Gran % (Auto) 0.1 Neut % (Auto) 73.1 Lymph % (Auto) 14.7 Geary % (Auto) 9.8 Eos % (Auto) 2.0 Baso % (Auto) 0.3 Immature Gran # (Auto) 0.01 Neut # (Auto) 5.00 Lymph # (Auto) 1.01 L Geary # (Auto) 0.67 H Eos # (Auto) 0.14 Baso # (Auto) 0.02 PT 47.4 H INR 5.2 H Sodium 138 Potassium 4.7 Chloride 106 Carbon Dioxide 27 Anion Gap 5.0 BUN 18 Creatinine 1.02 Est Cr Clr Drug Dosing 66.3 Est GFR ( Amer) 80.6 Est GFR (Non-Af Amer) 69.6 BUN/Creatinine Ratio 17.4 Glucose 114 H POC Glucose Estimat Average Glucose Hemoglobin A1c Calcium 8.6 Magnesium Total Bilirubin 0.8 AST 20 ALT 31 Alkaline Phosphatase 154 H Total Protein 6.9 Albumin 3.2 L Globulin 3.7 Albumin/Globulin Ratio 0.9 Lipase 133 Urine Color Urine Appearance Urine pH Ur Specific [place] Urine Protein Urine Glucose (UA) Urine Ketones Urine Blood Urine Nitrite Urine Bilirubin Urine Urobilinogen Ur Leukocyte Esterase Influenza Type A (PCR) Influenza Type B (PCR) Blood Type Antibody Screen 08/26/18 08/26/18 08/26/18 11:48 14:53 15:07 WBC RBC Hgb Hct MCV MCH MCHC RDW Std Deviation RDW Coeff of Mickey Plt Count MPV Immature Gran % (Auto) Neut % (Auto) Lymph % (Auto) Geary % (Auto) Eos % (Auto) Baso % (Auto) Immature Gran # (Auto) Neut # (Auto) Lymph # (Auto) Geary # (Auto) Eos # (Auto) Baso # (Auto) PT INR Sodium Potassium Chloride Carbon Dioxide Anion Gap BUN Creatinine Est Cr Clr Drug Dosing Est GFR ( Amer) Est GFR (Non-Af Amer) BUN/Creatinine Ratio Glucose POC Glucose Estimat Average Glucose Hemoglobin A1c Calcium Magnesium Total Bilirubin AST ALT Alkaline Phosphatase Total Protein Albumin Globulin Albumin/Globulin Ratio Lipase Urine Color Yellow Urine Appearance Clear Urine pH 7.0 Ur Specific [place] > 1.045 H Urine Protein Negative Urine Glucose (UA) Negative Urine Ketones Negative Urine Blood Negative Urine Nitrite Negative Urine Bilirubin Negative Urine Urobilinogen Negative Ur Leukocyte Esterase Negative Influenza Type A (PCR) Neg for Influ A Influenza Type B (PCR) Neg for Influ B Blood Type A Negative Antibody Screen NEGATIVE 08/26/18 08/26/18 08/26/18 17:30 20:41 21:48 WBC RBC Hgb 12.0 L Hct MCV MCH MCHC RDW Std Deviation RDW Coeff of Mickey Plt Count MPV Immature Gran % (Auto) Neut % (Auto) Lymph % (Auto) Geary % (Auto) Eos % (Auto) Baso % (Auto) Immature Gran # (Auto) Neut # (Auto) Lymph # (Auto) Geary # (Auto) Eos # (Auto) Baso # (Auto) PT INR Sodium Potassium Chloride Carbon Dioxide Anion Gap BUN Creatinine Est Cr Clr Drug Dosing Est GFR ( Amer) Est GFR (Non-Af Amer) BUN/Creatinine Ratio Glucose POC Glucose 107 H 137 H Estimat Average Glucose Hemoglobin A1c Calcium Magnesium Total Bilirubin AST ALT Alkaline Phosphatase Total Protein Albumin Globulin Albumin/Globulin Ratio Lipase Urine Color Urine Appearance Urine pH Ur Specific [place] Urine Protein Urine Glucose (UA) Urine Ketones Urine Blood Urine Nitrite Urine Bilirubin Urine Urobilinogen Ur Leukocyte Esterase Influenza Type A (PCR) Influenza Type B (PCR) Blood Type Antibody Screen 08/27/18 08/27/18 08/27/18 06:53 06:53 06:53 WBC 6.50 RBC 3.55 L Hgb 11.1 L Hct 32.2 L MCV 90.7 MCH 31.3 MCHC 34.5 RDW Std Deviation 42.1 RDW Coeff of Mickey 12.7 Plt Count 151 MPV 9.5 Immature Gran % (Auto) Neut % (Auto) Lymph % (Auto) Geary % (Auto) Eos % (Auto) Baso % (Auto) Immature Gran # (Auto) Neut # (Auto) Lymph # (Auto) Geary # (Auto) Eos # (Auto) Baso # (Auto) PT 12.8 H INR 1.3 H Sodium 138 Potassium 4.1 Chloride 107 Carbon Dioxide 27 Anion Gap 5.0 BUN 14 Creatinine 0.95 Est Cr Clr Drug Dosing 71.2 Est GFR ( Amer) 87.9 Est GFR (Non-Af Amer) 75.8 BUN/Creatinine Ratio 14.9 Glucose 124 H POC Glucose Estimat Average Glucose Hemoglobin A1c Calcium 8.4 L Magnesium 1.8 Total Bilirubin AST ALT Alkaline Phosphatase Total Protein Albumin Globulin Albumin/Globulin Ratio Lipase Urine Color Urine Appearance Urine pH Ur Specific [place] Urine Protein Urine Glucose (UA) Urine Ketones Urine Blood Urine Nitrite Urine Bilirubin Urine Urobilinogen Ur Leukocyte Esterase Influenza Type A (PCR) Influenza Type B (PCR) Blood Type Antibody Screen 08/27/18 08/27/18 06:53 08:09 WBC RBC Hgb Hct MCV MCH MCHC RDW Std Deviation RDW Coeff of Mickey Plt Count MPV Immature Gran % (Auto) Neut % (Auto) Lymph % (Auto) Geary % (Auto) Eos % (Auto) Baso % (Auto) Immature Gran # (Auto) Neut # (Auto) Lymph # (Auto) Geary # (Auto) Eos # (Auto) Baso # (Auto) PT INR Sodium Potassium Chloride Carbon Dioxide Anion Gap BUN Creatinine Est Cr Clr Drug Dosing Est GFR ( Amer) Est GFR (Non-Af Amer) BUN/Creatinine Ratio Glucose POC Glucose 118 H Estimat Average Glucose 126 Hemoglobin A1c 6.0 H Calcium Magnesium Total Bilirubin AST ALT Alkaline Phosphatase Total Protein Albumin Globulin Albumin/Globulin Ratio Lipase Urine Color Urine Appearance Urine pH Ur Specific [place] Urine Protein Urine Glucose (UA) Urine Ketones Urine Blood Urine Nitrite Urine Bilirubin Urine Urobilinogen Ur Leukocyte Esterase Influenza Type A (PCR) Influenza Type B (PCR) Blood Type Antibody Screen Medications Administered Current Inpatient Medications Acetaminophen (Tylenol) 650 mg PO Q4H PRN PRN Reason: pain/fever Stop: 09/25/18 17:25 Last Admin: 08/26/18 22:50 Dose: 650 mg Documented by: Atorvastatin Calcium (Lipitor) 40 mg PO HS [facility] [place] Stop: 09/25/18 20:59 Last Admin: 08/26/18 21:22 Dose: 40 mg Documented by: Carvedilol (Coreg) 25 mg PO BID [facility] Stop: 09/25/18 20:59 Last Admin: 08/27/18 08:04 Dose: 25 mg Documented by: Dextrose (Dextrose 50%) 25 - 50 ml IV UD PRN; Protocol PRN Reason: Hypoglycemia Protocol Stop: 09/25/18 17:25 Glucagon (Glucagen) 1 mg SQ UD PRN; Protocol PRN Reason: Hypoglycemia Protocol Stop: 09/25/18 17:25 Glucose (Glucose 40%) 15 - 30 gm PO UD PRN; Protocol PRN Reason: Hypoglycemia Protocol Stop: 09/25/18 17:25 Glucose (Dex4 Glucose) 4 - 8 tabs PO UD PRN; Protocol PRN Reason: Hypoglycemia Protocol Stop: 09/25/18 17:25 Hydroxyzine HCl (Vistaril) 10 mg PO Q6H PRN PRN Reason: Anxiety/Agitation Stop: 09/25/18 20:29 Sodium Chloride (Nss 1000ml) 1,000 mls @ 80 mls/hr IV .[id number] [facility] Stop: 09/25/18 17:25 Last Infusion: 08/27/18 05:59 Dose: 80 mls/hr Documented by: Insulin Aspart (Novolog Flexpen) 0 units SC ACHS [facility] [place] Stop: 09/25/18 20:59 Last Admin: 08/27/18 09:52 Dose: 2 units Documented by: Latanoprost (Xalatan Oph) 1 drops OPB HS [facility] [place] Stop: 09/25/18 20:59 Last Admin: 08/26/18 21:22 Dose: 1 drops Documented by: Levofloxacin (Levaquin) 750 mg PO DAILY@1100 [facility] [place] Stop: 09/03/18 10:59 Lisinopril (Zestril) 5 mg PO DAILY [facility] [place] Stop: 09/26/18 08:59 Last Admin: 08/27/18 08:05 Dose: 5 mg Documented by: Menthol (Nice) 1 ana maria BUCCAL PRN PRN PRN Reason: Cough Stop: 09/25/18 20:03 Miscellaneous (Carbohydrates For Hypoglycemia) 15 - 30 gm PO UD PRN PRN Reason: Hypoglycemia Treatment Stop: 09/25/18 17:25 Morphine Sulfate (Morphine Sulfate) 4 mg IV Q4H PRN PRN Reason: Pain Stop: 09/09/18 20:29 Last Admin: 08/26/18 20:46 Dose: 4 mg Documented by: Timolol Maleate (Timoptic 0.25% Oph) 1 drops OPB DAILY [facility] [place] Stop: 09/26/18 08:59 Last Admin: 08/27/18 08:03 Dose: 1 drops Documented by: (1) Rectus sheath hematoma Encounter type: initial encounter Qualified Code(s): S30.1XXA - Contusion of abdominal wall, initial encounter
[2018-08-27] MEDS: AZITHROMYCIN 250 MG TAB PO SCH (13:03)
--- NOTE | 2018-08-27 14:03 | Surgery Progress Note ---
Date of Service August 27, 2018 Assessment & Plan (1) Rectus sheath hematoma: rectus sheath hematoma, inr reversed, hct stable allowable for dilution no surgical intervention indicated continue to monitor h/h, if stable may discharge restart a/c per primary team surgery will sign off Present on Admission?: Yes Subjective 78 y/o male on coumadin with spontaneous rectus sheath hematoma. INR reversed, hct 32 from 35. Pain improved but still mildly tender. Physical Exam Vital Signs (Past 24 Hours): Last Vital Signs Temp 36.9 C 08/27/18 07:32 Pulse 68 08/27/18 07:32 Resp 18 08/27/18 07:32 BP 117/71 08/27/18 07:32 Pulse Ox 92 08/27/18 07:32 Constitutional: WD/WN, vitals as above Gastrointestinal (Abdomen): mild tenderness in right lower abd, no bruising Results & Data Laboratory Results Laboratory Results - last 24 hr 08/26/18 08/26/18 08/26/18 14:53 15:07 17:30 WBC RBC Hgb Hct MCV MCH MCHC RDW Std Deviation RDW Coeff of Mickey Plt Count MPV PT INR Sodium Potassium Chloride Carbon Dioxide Anion Gap BUN Creatinine Est Cr Clr Drug Dosing Est GFR ( Amer) Est GFR (Non-Af Amer) BUN/Creatinine Ratio Glucose POC Glucose 107 H Estimat Average Glucose Hemoglobin A1c Calcium Magnesium Urine Color Yellow Urine Appearance Clear Urine pH 7.0 Ur Specific [place] > 1.045 H Urine Protein Negative Urine Glucose (UA) Negative Urine Ketones Negative Urine Blood Negative Urine Nitrite Negative Urine Bilirubin Negative Urine Urobilinogen Negative Ur Leukocyte Esterase Negative Blood Type A Negative Antibody Screen NEGATIVE 08/26/18 08/26/18 08/27/18 20:41 21:48 06:53 WBC 6.50 RBC 3.55 L Hgb 12.0 L 11.1 L Hct 32.2 L MCV 90.7 MCH 31.3 MCHC 34.5 RDW Std Deviation 42.1 RDW Coeff of Mickey 12.7 Plt Count 151 MPV 9.5 PT INR Sodium Potassium Chloride Carbon Dioxide Anion Gap BUN Creatinine Est Cr Clr Drug Dosing Est GFR ( Amer) Est GFR (Non-Af Amer) BUN/Creatinine Ratio Glucose POC Glucose 137 H Estimat Average Glucose Hemoglobin A1c Calcium Magnesium Urine Color Urine Appearance Urine pH Ur Specific [place] Urine Protein Urine Glucose (UA) Urine Ketones Urine Blood Urine Nitrite Urine Bilirubin Urine Urobilinogen Ur Leukocyte Esterase Blood Type Antibody Screen 08/27/18 08/27/18 08/27/18 06:53 06:53 06:53 WBC RBC Hgb Hct MCV MCH MCHC RDW Std Deviation RDW Coeff of Mickey Plt Count MPV PT 12.8 H INR 1.3 H Sodium 138 Potassium 4.1 Chloride 107 Carbon Dioxide 27 Anion Gap 5.0 BUN 14 Creatinine 0.95 Est Cr Clr Drug Dosing 71.2 Est GFR ( Amer) 87.9 Est GFR (Non-Af Amer) 75.8 BUN/Creatinine Ratio 14.9 Glucose 124 H POC Glucose Estimat Average Glucose 126 Hemoglobin A1c 6.0 H Calcium 8.4 L Magnesium 1.8 Urine Color Urine Appearance Urine pH Ur Specific [place] Urine Protein Urine Glucose (UA) Urine Ketones Urine Blood Urine Nitrite Urine Bilirubin Urine Urobilinogen Ur Leukocyte Esterase Blood Type Antibody Screen 08/27/18 08/27/18 08:09 12:10 WBC RBC Hgb Hct MCV MCH MCHC RDW Std Deviation RDW Coeff of Mickey Plt Count MPV PT INR Sodium Potassium Chloride Carbon Dioxide Anion Gap BUN Creatinine Est Cr Clr Drug Dosing Est GFR ( Amer) Est GFR (Non-Af Amer) BUN/Creatinine Ratio Glucose POC Glucose 118 H 162 H Estimat Average Glucose Hemoglobin A1c Calcium Magnesium Urine Color Urine Appearance Urine pH Ur Specific [place] Urine Protein Urine Glucose (UA) Urine Ketones Urine Blood Urine Nitrite Urine Bilirubin Urine Urobilinogen Ur Leukocyte Esterase Blood Type Antibody Screen (1) Rectus sheath hematoma Encounter type: initial encounter Qualified Code(s): S30.1XXA - Contusion of abdominal wall, initial encounter
[2018-08-27] MEDS: ATORVASTATIN 40 MG TAB PO SCH (21:24)
[2018-08-27] MEDS: CEFDINIR 300 MG CAP PO SCH (21:27)
[2018-08-27] MEDS: LATANOPROST 0.005% OP SOLN 2.5 ML BTL OPB SCH (21:29)
[2018-08-28] MEDS: SODIUM CHLORIDE 0.9% 1000ML 1,000 ML IV SCH (04:57)
[2018-08-28 08:44] LABS: Hemoglobin 10.8 g/dL (14.0-18.0)
[2018-08-28] MEDS: CEFDINIR 300 MG CAP PO SCH (09:27)
[2018-08-28] MEDS: TIMOLOL MALEATE 0.25% OP SOLN 5 ML BTL OPB SCH (09:27)
[2018-08-28] MEDS: AZITHROMYCIN 250 MG TAB PO SCH (09:28)
[2018-08-28] MEDS: CARVEDILOL 25 MG TAB PO SCH (09:30)
[2018-08-28] MEDS: INSULIN ASPART 100 UNITS/ML 3 ML PEN SC SCH ×2 (09:32→13:29)
[2018-08-28] MEDS: LISINOPRIL 5 MG TAB PO SCH (10:02)
--- NOTE | 2018-08-28 12:26 | Discharge Summary ---
Date of Service August 28, 2018 Admission HPI Per Admitting Provider 78-year-old male with a history of a T3 deficiency, DVT/PE, active prostate cancer who presents with rectus sheath hematoma. Patient reports abdominal pain that has been bothering him for 2-3 weeks; however this morning he notes the pain was significantly worse than prior prior days. He otherwise is completely asymptomatic. He denies shortness of breath, chest pain, nausea, vomiting, headache, lightheaded, dizziness, or any other symptom. In the ED, CT abdomen pelvis showed a large right rectus sheath hematoma with a small focus of active extravasation. Admission Exam Per Admitting Provider Constitutional: WD/WN, vitals as above Eyes: EOM intact bilaterally; no conjunctival abnormality ENMT: external ear and nose normal, oropharynx normal Neck: trachea midline, no thyromegaly normal visual inspection Respiratory: normal respiratory effort, lungs clear to auscultation no respiratory distress Cardiovascular: RRR, no murmur, no edema Gastrointestinal (Abdomen): Inspection/Auscultation: abdomen normal to inspection and normal bowel sounds; abdomen not distended and no abdominal edema Percussion/Palpation: + abdomen tender (RLQ) and abdomen soft; no guarding and abdomen not rigid Musculoskeletal: no cyanosis or clubbing, extremities motor strength 5/5 Skin: no rashes, warm and dry Neurologic: moves all extremities and awake Psychiatric: Orientation: alert, oriented to person and cooperative Principal Diagnosis Rectus sheath hematoma Discharge Exam Constitutional WD/WN, vitals as above + obese Eyes PERRL, conjunctivae normal, anicteric sclerae ENMT external ear and nose normal, oropharynx normal Neck trachea midline, no thyromegaly Respiratory normal respiratory effort, lungs clear to auscultation Cardiovascular RRR, no murmur, no edema Gastrointestinal (Abdomen) Inspection/Auscultation: abdomen normal to inspection and normal bowel sounds Percussion/Palpation: + abdomen tender (RLQ) and abdomen soft Musculoskeletal no cyanosis or clubbing, extremities motor strength 5/5 Skin no rashes, warm and dry Neurologic patellar DTR's 2+ bilat, sensation intact and PERRL, EOMI, accommodation nl, no face palsy, no dysarthria Psychiatric A+Ox3, euthymic affect Lymphatic no cervical or axillary lymphadenopathy Discharge Data Allergies Allergy/AdvReac Type Severity Reaction Status Date / Time meperidine Allergy Mild OVER-SEDATION, Verified 04/03/19 11:59 N/V W/ SYNCOPE Consultations 08/26/18 14:56 ED Decision to Admit Stat Ordered Studies 08/26/18 11:36 CT abd pelvis IV con only Stat Hospital Course (1) Rectus sheath hematoma: CT a/p on 08/26 showed "large right rectus sheath hematoma with small focus of active extravasation." Blood pressure stable. Seen by surgery with no plan for intervention at this time. - Baseline hgb is ~14; hgb was 12 on admission Hb down to 11.0 on 08/27 INR reversed, down to 1.3 Hb stable at 10.8 on 08/28, no further signs of blood loss in hindsight, the hematoma likely occurred due to straining from cough and his INR was >5 will continue to hold Coumadin for one week, follow up with PCP can continue to use abdominal binder over the weekend for compression, he says the binder does not bother him (2) Atrial fibrillation: Normally on beta-navin for rate control and warfarin for anticoagulation. - Continue carvedilol - Hold warfarin, INR reversed to 1.3 on 08/27 hold Coumadin until he follows up with PCP (3) Consolidation of right lower lobe of lung: more productive cough this morning, thick yellow sputum, coughing a lot will treat with Cefdinir and Zithromax x 5 days avoid quinolones due to multiple QT prolonging medications still with productive cough but coughing less complete course of Zithromax and Cefdinir at home (4) Hypertension: BP was 150/80 in the ED and still 160/80. - Continue lisinopril and beta-navin (5) Prostate cancer: Active prostate cancer on leuprolide. - No inpatient needs Total Time Total Time Spent Total Time Spent (In Minutes): 40 minutes Total Time Includes: Examination of the Patient, Discharge Planning, Medication Reconciliation and Other (discussion with family member) Discharge Plan Discharge Items Patient Disposition: Home - Self-Care Reason For Visit: RECTUS SHEATH HEMATOMA Discharge Diagnosis: Rectus sheath hematoma Pneumonia Condition: Good Discharge Goals: Decrease discomfort and Improve disease control Activity: Resume your previous activity Lifting: Wait until after follow-up appointment Bathing: No limitations Sexual Activity: Wait until after follow-up appointment Exercise/Sports: Wait until after follow-up appointment Driving/Machine Use: No limitations Non-emergency contact: Primary Care Provider Call non-emergency contact if: you have any medication questions, your symptoms worsen, your pain is not controlled and you have a fever Follow-up/Referrals: Derrick Mariscal MD [Primary Care Provider] - Diet: Carb Consistent or DM2 and Heart Healthy Other Ambulatory Orders: Hemoglobin and Hematocrit (Routine) Timeframe: 1 Week Location: Determined by Patient Ordered By: Abner Engle Provider Instructions: Medications: - ZITHROMAX: take 500mg daily for three more days, next dose tomorrow morning - CEFDINIR: take 300mg twice a day for 8 more doses, next dose due this evening Pneumonia: infiltrate on chest x-ray, cough with productive sputum, no fever, no sweats, normal WBC will treat as above with Zithromax and Cefdinir Hematoma in abdominal wall due to coughing while on Coumadin, INR was > 5 on admission INR reversed, down to 1.3 Hb (blood counts) are down slightly but stable, 10.8 today, was 11.1 yesterday morning continue to hold Coumadin until you see Dr. Mariscal next week will order a blood count for one week from now you can use the abdominal binder for compression of the hematoma, don't have to use past Friday you can resume Aspirin on Friday FOLLOW UP - call Dr. Mariscal for appointment on /Friday next week for follow up, ask about resuming Coumadin Prescriptions: New azithromycin [Zithromax] 250 mg Tablet 500 mg PO QAM 3 Days Qty: 6 RF: 0 cefdinir 300 mg Capsule 300 mg PO Q12 4 Days Qty: 8 RF: 0 Continued latanoprost 0.005 % drops 1 drp OPB HS RF: 0 atorvastatin 40 mg tablet 40 mg PO HS RF: 0 metformin 500 mg tablet 500 mg PO BID RF: 0 aspirin [Aspir-81] 81 mg Tablet,Delayed Release (Dr/Ec) 81 mg PO DAILY RF: 0 timolol maleate 0.5 % drops 1 drp OPB DAILY RF: 0 lisinopril 5 mg tablet 5 mg PO DAILY Qty: 30 RF: 0 carvedilol 25 mg Tablet 25 mg PO BID RF: 0 leuprolide (4 month) 30 mg Syringe 30 mg subcut Q16W RF: 0 Discontinued warfarin 6 mg tablet 6 mg PO DAILY RF: 0 Stand-Alone Forms: Call Back Authorization, [facility] Discharge Orders: Discharge Order (Routine); Ordered 08/28/18 Ordered By: Abner Suresh Admission Data Admit Date/Time: 08/26/18 15:40 Attending Provider: Abner Suresh Admit Provider: Tone Villalba Primary Care Provider: Derrick Mariscal Other Providers: Tone Villalba Service: Medical Other Interventions: Discharge Summary Assessment (RN) Last Done: 08/28/18 13:37 Pending Studies at Discharge: No DC Date/Time DO NOT enter until pt leaves facility: 08/28/18 14:24
[2018-08-28] MEDS: ACETAMINOPHEN 325 MG TAB PO PRN (14:13)
== END 2018-08-28 14:24 | disposition home or self-care (01) | DRG 914 ==
LOC: ED 10:48 → SUATTDRO 15:40 → 3W 15:40

== ENCOUNTER 2018-09-28 15:04 | Inpatient (IN) ==
[2018-09-28] MEDS ORDERED: dilTIAZem HCl 5 MG/ML 5 ML VIAL IV STA (15:24)
[2018-09-28] MEDS ORDERED: dilTIAZem HCl 125 MG in DEXTROSE 5% 100 ML IV STA (15:24)
[2018-09-28] MEDS ORDERED: SODIUM CHLORIDE 0.9% 1000ML 1,000 ML IV STA (15:24)
[2018-09-28] MEDS ORDERED: SODIUM CHLORIDE 0.9% 1000ML 250 ML IV ONE (15:51)
[2018-09-28 15:52] LABS: Basophils # (auto) 0.03 K/uL (0-0.2); Basophils % (auto) 0.5 %; Eosinophils # (auto) 0.18 K/uL (0-0.5); Eosinophils % (auto) 3.2 %; Hematocrit (blood only) 38.1 % (42-52); Hemoglobin 13.5 g/dL (14.0-18.0); Immature Granulocytes # (auto) 0.01 K/uL (0.00-0.02); Immature Granulocytes % (auto) 0.2 %; Lymphocytes # (auto) 1.95 K/uL (1.2-3.4); Lymphocytes % (auto) 35.1 %; Mean Corpuscular Hgb Conc 35.4 g/dL (32-36); Mean Corpuscular Volume 89.2 fL (80-100); Mean Platelet Volume 9.1 fL (7.4-10.4); Monocytes % (auto) 10.8 %; Neutrophils # (auto) 2.79 K/uL (1.4-6.5); Neutrophils % (auto) 50.2 %; Platelet Count 153 K/uL (130-400); RDW Coefficient of Variation 13.3 % (11.5-14.5); Red Blood Count 4.27 M/uL (4.7-6.1); White Blood Count 5.56 K/uL (4.8-10.8)
--- NOTE | 2018-09-28 16:00 | XRay Report ---
XR chest 1V portable HISTORY: 78 years-old Male tachycardia, cough acute cough COMPARISON: Chest radiograph 06/28/2018, chest CT 07/27/2010 TECHNIQUE: Portable AP view of the chest FINDINGS: Cardiac silhouette is enlarged, unchanged. Calcification of the thoracic aortic arch. Pulmonary vascu lar congestion without overt pulmonary edema. Mild chronic interstitial coarsening. No pneumothorax, pleural effusion or lobar airspace consolidation. The lungs are hyperinflated. Degenerative changes o f the shoulders and spine. IMPRESSION: 1. Cardiomegaly with mild pulmonary vascular congestion. 2. Mild chronic interstitial coarsening. The above report was generated using voice recognition software. It may contain grammatical, syntax o r spelling errors. Electronically signed by: Russell Larios M.D. 09/28/2018 3:59 PM
[2018-09-28 16:09] LABS: INR 2.9 (0.9-1.1); Partial Thromboplastin Ratio 1.3; Partial Thromboplastin Time 34.1 Seconds (21.0-31.0); Prothrombin Time 27.7 Seconds (9.0-12.0)
[2018-09-28 16:12] LABS: Alanine Aminotransferase 33 U/L (12-78); Albumin Level 3.5 gm/dl (3.4-5.0); Aspartate Aminotransferase 25 U/L (15-37); BUN Creatinine Ratio 18.8 (10-20); Blood Urea Nitrogen 23 mg/dl (7-18); Calcium 9.1 mg/dl (8.5-10.1); Carbon Dioxide 24 mmol/L (21-32); Chloride 105 mmol/L (98-107); Glucose 100 mg/dl (70-99); Magnesium 1.8 mg/dl (1.8-2.4); Sodium 138 mmol/L (136-145)
[2018-09-28 16:22] LABS: Alkaline Phosphatase 129 U/L (45-117); Bilirubin,Total 0.6 mg/dl (0.2-1); Globulin 3.5 gm/dl (2.5-4.0); Troponin I < 0.015 ng/ml (0-0.045)
--- NOTE | 2018-09-28 17:38 | Emergency Department Note ---
Entered by Geovanny Mendoza acting as a scribe for Grant Jacobson MD ED Provider Note CHIEF COMPLAINT: palpitations, fatigue, EKG showing atrial fibrillation HISTORY OF PRESENT ILLNESS: The patient is a 78 year old male with a history of atrial fibrillation who presents to the Emergency Room after referral for atrial fibrillation shown on an outpatient EKG. The patient reports that over the past few days he developed a cough and cold symptoms. Today prior to arrival he reports fatigue, palpitations, blurred vision, diaphoresis, neck stiffness, shoulder pain, lightheadedness, and occasional left-sided chest pain. He reports that three months ago he was cardioverted for atrial fibrillation. He states that he takes Coumadin. His traveling representative is Dr. Mas. Pt denies LOC, headache, fevers, chills, breathing difficulties, nausea, vomiting, abdominal pain, back pain, melena, hematochezia, urinary symptoms, numbness, lymphadenopathy, rash, or other complaints. REVIEW OF SYSTEMS: See HPI for pertinent positives and negatives. A total of ten systems were reviewed and were otherwise negative. PMHx/PSHx: atrial fibrillation, rectus sheath hematoma, hypertension, prostate cancer SOCIAL HISTORY: Patient lives at home. PHYSICAL EXAM: GENERAL: Awake, alert, uncomfortable-appearing, in no distress HENT: Normocephalic, atraumatic. Oropharynx unremarkable. EYES: PERRL. Normal conjunctiva. Sclera non-icteric. NECK: Inspection normal. Non-tender. Supple. No nuchal rigidity. FROM. No mass es. RESPIRATORY: Clear to auscultation. No wheezes. No rales. Normal respiratory effort. CARDIAC: Tachycardic rate. Irregular rhythm. No murmurs. No rubs. Extremities warm and well perfused. Pulses equal. No JVD. GI: Soft, non-distended. No tenderness to palpation. No rebound or guarding. No masses. RECTAL: Deferred. MUSCULOSKELETAL: Atraumatic. Chest examination reveals no tenderness. The back is symmetrical on inspection without obvious abnormality. There is no CVA tenderness to palpation. No joint edema. LOWER EXTREMITIES: Calves are equal size bilaterally and non-tender. 1+ bilateral edema. No discoloration. NEURO: Normal sensorium. No sensory or motor deficits noted. SKIN: No rash or jaundice noted. EMERGENCY DEPARTMENT COURSE: 1520: Past medical records reviewed. The patient was evaluated in room C10, and a complete history and physical examination were performed. 1630: I checked on the patient. His heart rate is controlled, and he states that he is feeling improved. 1635: I consulted Dr. Park - [facility] Hospitalist. The patient will be reevaluated for hospitalization. MEDICAL DECISION MAKING: Triage Nursing notes reviewed. The patient's presentation and history were concerning for fatigue and tachycardia. Etiologies such as ectopy, cardiac dysrhythmia, electrolyte abnormality, thyroid dysfunction, pulmonary embolism, infection, gastrointestinal, anxiety as well as others were entertained. The patient had an ECG from the office that showed A. fib with RVR. No ischemia. Repeat ECG here as well as his vital signs revealed tachycardia. An IV was established. Blood work obtained. Chest imaging performed. The patient was started on Cardizem. He was also given normal saline. He received a Cardiz em bolus and was placed on a drip. This worked well for rate control. On reassessment the patient was feeling better. His heart rate was much improved. His blood work revealed a therapeutic INR. His troponin was negative. Electro lites were unremarkable. Consultation was made with internal medicine. Patient was evaluated in the ER for further management. IMPRESSION: atrial fibrillation with RVR PLAN: evaluation by hospitalist The scribe's documentation has been prepared under my direction and personally reviewed by me in its entirety. I confirm that the note above accurately refle cts all work, treatment, procedures, and medical decision making performed by me. CRITICAL CARE: I have personally spent 30 minutes of critical care time in the direct management of this patient. This includes bedside care, interpretation of diagnostic studies, and testing, discussion with consultants, patient, and family members, and other required patient management activities. This 30 minutes is in excess of all separately billable procedures. Impression & Plan Atrial fibrillation with RVR Past Med/Surg History Medical History Rectus sheath hematoma (Acute) Atrial fibrillation with RVR (Acute) Prostate cancer (Chronic) "Rising PSA Status post biopsy revealing adenocarcinoma [place] 3+3 Status post hormonal suppression Status post completion of radiation therapy 12/17/2002 received 7920 cGy Slow rise of the PSA" On 10/17/15 15:50 Miladys Price wrote "Rising PSA Status post biopsy revealing adenocarcinoma [place] 3+3 Status post hormonal suppression Status post completion of radiation therapy 12/17/2002 received 7920 cGy" Atrial fibrillation Atrial fibrillation Encounter for pre-operative examination Hypertension No pertinent family history Rapid atrial fibrillation Surgical History No pertinent past surgical history Family History Mother Cancer Social History Preferred Language: Swedish Communication Ability: Effective Beliefs That Will Affect Care: Scientologist Scientologist Beliefs: Jehova's Witness Current Living Situation: Spouse Feels Safe at Home: Yes Smoking Status: Never smoker Hx Alcohol Use: No Hx Substance Use: No Results & Data Vital Signs Vital Signs - 24 hr 09/28/18 15:07 09/28/18 15:39 09/28/18 15:48 Temperature 36.5 C Temperature Source Oral Sepsis Recent Fever Within 48 Hours No Sepsis Action Taken by Nursing No Action Required Pulse Rate 110 H 134 H 94 H Pulse Rate from SpO2 Sensor 92 H Respiratory Rate 20 18 13 Respiratory Effort / Characteristics Non-Labored Respiratory Depth Normal Blood Pressure 102/59 L 119/66 93/68 L Blood Pressure Mean 73 83 76 Pulse Oximetry 97 95 Oxygen Delivery Method Room Air 09/28/18 15:50 09/28/18 15:51 09/28/18 15:55 Temperature Temperature Source Sepsis Recent Fever Within 48 Hours Sepsis Action Taken by Nursing Pulse Rate 102 H 109 H 121 H Pulse Rate from SpO2 Sensor 84 86 79 Respiratory Rate 17 26 H 16 Respiratory Effort / Characteristics Respiratory Depth Blood Pressure 98/65 L 100/71 130/80 Blood Pressure Mean 76 80 96 Pulse Oximetry 93 96 95 Oxygen Delivery Method 09/28/18 15:56 09/28/18 15:58 09/28/18 16:01 Temperature Temperature Source Sepsis Recent Fever Within 48 Hours Sepsis Action Taken by Nursing Pulse Rate 95 H 92 H 98 H Pulse Rate from SpO2 Sensor 85 84 85 Respiratory Rate 13 18 15 Respiratory Effort / Characteristics Respiratory Depth Blood Pressure 107/66 104/64 105/67 Blood Pressure Mean 79 77 79 Pulse Oximetry 95 97 93 Oxygen Delivery Method 09/28/18 16:07 09/28/18 16:11 09/28/18 16:16 Temperature Temperature Source Sepsis Recent Fever Within 48 Hours Sepsis Action Taken by Nursing Pulse Rate 91 H 95 H 91 H Pulse Rate from SpO2 Sensor 93 H 81 87 Respiratory Rate 16 19 12 Respiratory Effort / Characteristics Respiratory Depth Blood Pressure 109/70 119/83 124/81 Blood Pressure Mean 83 95 95 Pulse Oximetry 96 97 95 Oxygen Delivery Method 09/28/18 16:21 09/28/18 16:26 09/28/18 16:31 Temperature Temperature Source Sepsis Recent Fever Within 48 Hours Sepsis Action Taken by Nursing Pulse Rate 107 H 104 H 98 H Pulse Rate from SpO2 Sensor 85 81 88 Respiratory Rate 15 16 6 L Respiratory Effort / Characteristics Respiratory Depth Blood Pressure 117/81 107/70 123/72 Blood Pressure Mean 93 82 89 Pulse Oximetry 95 95 95 Oxygen Delivery Method 09/28/18 16:36 09/28/18 16:41 09/28/18 16:46 Temperature Temperature Source Sepsis Recent Fever Within 48 Hours Sepsis Action Taken by Nursing Pulse Rate 85 91 H 102 H Pulse Rate from SpO2 Sensor 73 82 67 Respiratory Rate 16 11 L 13 Respiratory Effort / Characteristics Respiratory Depth Blood Pressure 110/64 100/69 107/70 Blood Pressure Mean 79 79 82 Pulse Oximetry 95 96 95 Oxygen Delivery Method 09/28/18 16:51 09/28/18 16:56 09/28/18 17:01 Temperature Temperature Source Sepsis Recent Fever Within 48 Hours Sepsis Action Taken by Nursing Pulse Rate 79 84 82 Pulse Rate from SpO2 Sensor 75 87 74 Respiratory Rate 7 L 5 L 5 L Respiratory Effort / Characteristics Respiratory Depth Blood Pressure 120/66 110/65 103/76 Blood Pressure Mean 84 80 85 Pulse Oximetry 94 94 94 Oxygen Delivery Method 09/28/18 17:06 09/28/18 17:16 Temperature Temperature Source Sepsis Recent Fever Within 48 Hours Sepsis Action Taken by Nursing Pulse Rate 85 104 H Pulse Rate from SpO2 Sensor 78 79 Respiratory Rate 9 L 4 L Respiratory Effort / Characteristics Respiratory Depth Blood Pressure 107/66 113/69 Blood Pressure Mean 79 83 Pulse Oximetry 95 94 Oxygen Delivery Method Home Medications Current Medication List: was personally reviewed by me Laboratory Data Attestation: I reviewed the patient's lab results. Result diagrams: 09/28/18 15:44 09/28/18 15:44 Lab Results 09/28/18 09/28/18 09/28/18 Range/Units 15:44 15:44 15:44 WBC 5.56 (4.8-10.8) K/uL RBC 4.27 L (4.7-6.1) M/uL Hgb 13.5 L (14.0-18.0) g/dL Hct 38.1 L (42-52) % MCV 89.2 (80-100) fL MCH 31.6 (25-34) pg MCHC 35.4 (32-36) g/dL RDW Std Deviation 43.0 (36.4-46.3) fL RDW Coeff of Mickey 13.3 (11.5-14.5) % Plt Count 153 (130-400) K/uL MPV 9.1 (7.4-10.4) fL Immature Gran % (Auto) 0.2 % Neut % (Auto) 50.2 % Lymph % (Auto) 35.1 % [place] % (Auto) 10.8 % Eos % (Auto) 3.2 % Baso % (Auto) 0.5 % Immature Gran # (Auto) 0.01 (0.00-0.02) K/uL Neut # (Auto) 2.79 (1.4-6.5) K/uL Lymph # (Auto) 1.95 (1.2-3.4) K/uL [place] # (Auto) 0.60 H (0.11-0.59) K/uL Eos # (Auto) 0.18 (0-0.5) K/uL Baso # (Auto) 0.03 (0-0.2) K/uL PT 27.7 H (9.0-12.0) Seconds INR 2.9 H (0.9-1.1) APTT 34.1 H (21.0-31.0) Seconds PTT Ratio 1.3 Sodium 138 (136-145) mmol/L Potassium 5.0 (3.5-5.1) mmol/L Chloride 105 (98-107) mmol/L Carbon Dioxide 24 (21-32) mmol/L Anion Gap 9.0 (3-11) BUN 23 H (7-18) mg/dl Creatinine 1.22 (0.6-1.4) mg/dl Est Cr Clr Drug Dosing Not Reportable Est GFR ( Amer) 65.0 Est GFR (Non-Af Amer) 56.0 BUN/Creatinine Ratio 18.8 (10-20) Glucose 100 H (70-99) mg/dl Calcium 9.1 (8.5-10.1) mg/dl Magnesium 1.8 (1.8-2.4) mg/dl Total Bilirubin 0.6 (0.2-1) mg/dl AST 25 (15-37) U/L ALT 33 (12-78) U/L Alkaline Phosphatase 129 H (45-117) U/L Troponin I < 0.015 (0-0.045) ng/ml Total Protein 7.0 (6.4-8.2) gm/dl Albumin 3.5 (3.4-5.0) gm/dl Globulin 3.5 (2.5-4.0) gm/dl Albumin/Globulin Ratio 1.0 (0.9-2) TSH 1.930 (0.300-4.500) uIu/ml Administered Medications Diltiazem HCl 125 mg/ Dextrose 125 mls @ 5 mls/hr IV .Q24H STA; Protocol Stop: 09/29/18 15:23 Last Admin: 09/28/18 15:45 Dose: 5 mg/hr, 5 mls/hr Documented by: [id number] Cosigned by: [id number] Sodium Chloride (Nss 1000ml) 1,000 mls @ 125 mls/hr IV .Q8H STA Stop: 09/28/18 23:23 Last Admin: 09/28/18 15:46 Dose: 125 mls/hr Documented by: [id number] Discontinued Medications Diltiazem HCl (Cardizem) 10 mg IV NOW STA Stop: 09/28/18 15:25 Last Admin: 09/28/18 15:45 Dose: 10 mg Documented by: [id number] Cosigned by: [id number] Sodium Chloride (Nss 1000ml) 250 mls @ 999 mls/hr IV .Q16M ONE Stop: 09/28/18 16:06 Last Admin: 09/28/18 15:51 Dose: 999 mls/hr Documented by: [id number] Imaging Data Radiologist's Impression: Radiology results as stated below per my review and the radiologist's interpretation: XR chest 1V portable HISTORY: 78 years-old Male tachycardia, cough acute cough COMPARISON: Chest radiograph 06/28/2018, chest CT 07/27/2010 TECHNIQUE: Portable AP view of the chest FINDINGS: Cardiac silhouette is enlarged, unchanged. Calcification of the thoracic aortic arch. Pulmonary vascular congestion without overt pulmonary edema. Mild chronic interstitial coarsening. No pneumothorax, pleural effusion or lobar airspace consolidation. The lungs are hyperinflated. Degenerative changes of the shoulders and spine. IMPRESSION: 1. Cardiomegaly with mild pulmonary vascular congestion. 2. Mild chronic interstitial coarsening. The above report was generated using voice recognition software. It may contain grammatical, syntax or spelling errors. Electronically signed by: Russell Larios M.D. 09/28/2018 3:59 PM ECG Data Attestation: I personally reviewed and interpreted this ECG as follows: Indication: other (arrhythmia) Rate (beats per minute): 139 Rhythm: atrial fibrillation (with RVR) Findings: + nonspecific-ST abn; no PVC and no ST elevation Additional Comments: EKG from the office prior to arrival showed atrial fibrillation with RVR at 145 bpm. There are nonspecific ST changes, and there is no ST elevation. Blood Pressure Blood Pressure Findings: Normal blood pressure Blood Pressure Disposition: did not require urgent referral Discharge Plan Visit Data Chief Complaint: Weakness Stated Complaint: HEART RACING, LIGHTHEADED, WEAKNESS ED Provider: Grant Jacobson Discharge Problem: Atrial fibrillation with RVR Patient Disposition: Being Evaluated by Hospitalist Forms Stand Alone Forms: My [facility] Prescriptions Prescriptions: No Action latanoprost 0.005 % drops 1 drp OPB HS RF: 0 atorvastatin 40 mg tablet 40 mg PO HS RF: 0 metformin 500 mg tablet 500 mg PO BID RF: 0 aspirin [Aspir-81] 81 mg Tablet,Delayed Release (Dr/Ec) 81 mg PO DAILY RF: 0 timolol maleate 0.5 % drops 1 drp OPB DAILY RF: 0 lisinopril 5 mg tablet 5 mg PO DAILY Qty: 30 RF: 0 carvedilol 25 mg Tablet 25 mg PO BID RF: 0 leuprolide (4 month) 30 mg Syringe 30 mg subcut Q16W RF: 0 Referrals Referrals: Derrick Mariscal MD [Primary Care Provider] - The scribe's documentation has been prepared under my direction and personally reviewed by me in its entirety. I confirm that the note above accurately reflects all work, treatment, procedures, and medical decision making performed by me.
[2018-09-28 17:45] LABS: Appearance Urine Clear (Clear); Bilirubin Urine Negative (Negative); Blood Urine Negative (Negative); Color Urine Yellow; Glucose Urine UA Negative (Negative); Ketones Urine Negative (Negative); Leukocyte Esterase Urine Negative (Negative); Nitrite Urine Negative (Negative); Protein Urine Negative (Negative); Specific Gravity Urine 1.017 (1.000-1.030); Urobilinogen Urine Negative (Negative)
--- NOTE | 2018-09-28 18:59 | History & Physical Report ---
Date of Service September 28, 2018 Assessment & Plan (1) Atrial fibrillation with RVR: 78 y/o M Hx PAF, HTN, HLD, DM II, prostate CA, glaucoma, DVT/PE. Presents with lightheadedness, central CP and shoulder pain. The symptoms are similar to his symptoms when he was admitted for AF 08/26. Rapid AF was confirmed on arrival to the ER. His symptoms largely resolved with a Cardizem bolus and he is admitted on a drip. Initial labs are unremarkable and an INR is therapeutic at 2.9. 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 We will repeat a troponin due to earlier CP. He is already on ASA, statin and Carvedilol. 2) DM - placed on a SS 3) HTN/HLD - cont carvedilol, statin - Lisinopril held to allow for rate agents. 4) Glaucoma - cont Timolol, Latanoprost 5) Prostate CA - f/u as outpt - presently treated with leuprolid. 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 Presents with lightheadedness, central CP and shoulder pain. The symptoms are similar to his symptoms when he was admitted for AF 08/26. Rapid AF was confirmed on arrival to the ER. His symptoms largely resolved with a Cardizem bolus and he is admitted on a drip. Initial labs are unremarkable and an INR is therapeutic at 2.9. 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 Family: Mother due to CA - unspecified Father due to an aneurysm and a CVA Allergies Allergy/AdvReac Type Severity Reaction Status Date / Time meperidine Allergy Mild OVER-SEDATION, Verified 09/28/18 16:08 N/V W/ SYNCOPE Home Medications Home Medications Medication Instructions Recorded Confirmed Type aspirin [Aspir-81] 81 mg PO DAILY 06/28/18 09/28/18 History atorvastatin 40 mg PO HS 06/28/18 09/28/18 History latanoprost 1 drp OPB HS 06/28/18 09/28/18 History metformin 500 mg PO BID 06/28/18 09/28/18 History timolol maleate 1 drp OPB DAILY 06/28/18 09/28/18 History lisinopril 5 mg PO DAILY #30 tab 06/29/18 09/28/18 Rx carvedilol 25 mg PO BID 08/26/18 09/28/18 History leuprolide (4 month) 30 mg SUBCUT Q16W 08/26/18 09/28/18 History Past Med/Surg History Medical History Rectus sheath hematoma (Acute) Atrial fibrillation with RVR (Acute) Prostate cancer (Chronic) "Rising PSA Status post biopsy revealing adenocarcinoma [place] 3+3 Status post hormonal suppression Status post completion of radiation therapy 12/17/2002 received 7920 cGy Slow rise of the PSA" On 10/17/15 15:50 Miladys Price wrote "Rising PSA Status post biopsy revealing adenocarcinoma [place] 3+3 Status post hormonal suppression Status post completion of radiation therapy 12/17/2002 received 7920 cGy" Atrial fibrillation Atrial fibrillation Encounter for pre-operative examination Hypertension No pertinent family history Rapid atrial fibrillation Surgical History No pertinent past surgical history Family History Mother Cancer Social History Preferred Language: Belgian Communication Ability: Effective Beliefs That Will Affect Care: Spiritism Spiritism Beliefs: Jehova's Witness Current Living Situation: Spouse Feels Safe at Home: Yes Smoking Status: Never smoker Hx Alcohol Use: No Hx Substance Use: No Review of Systems Review of Systems: Gen: Denies fevers, night sweats, rigors, fatigue, malaise, weight loss/gain ENT: Denies congestion, throat pain, hearing loss Eyes: Denies acute visual changes CV: Central CP radiating into shoulders Pulmonary: Denies SOB, cough, wheezing GI: Denies N/V, diarrhea, constipation Neuro: Denies acute or unilateral weakness, acute gait impairment, headache or acute visual changes - lightheaded with rapid rate Musculoskeletal: Denies joint pain, inflammation Endocrine: Denies polydipsia, polyuria Skin: Denies acute rashes or ulcers Physical Exam Physical Exam: General: AAO x 3, no distress ENT: No erythema or exudates, no thrush Eyes: WALLY, EOMI Head and neck: Normocephalic, atraumatic, No JVD, neck is supple. Chest/heart: Nontender, S1,2, irr, tachy Lungs: CTAB, no wheezing or crackles Abdomen: Nontender, nondistended, BS+ Neuro: AAO x 3, speech is clear, no unilateral weakness or loss of sensation, coordination intact Musculoskeletal: No joint inflammation, muscle tenderness, FROM Skin: No acute rashes or ulcers Extremities: No clubbing, cyanosis, edema Results & Data Vital Signs (Past 12 Hours) Vital Signs Temp Pulse Resp BP Pulse Ox 09/28/18 18:46 112 H 15 116/71 94 09/28/18 18:31 87 21 106/77 93 09/28/18 18:16 86 23 131/76 92 09/28/18 18:01 101 H 10 L 114/68 94 09/28/18 17:46 89 20 110/76 96 09/28/18 17:31 109 H 18 129/93 94 09/28/18 17:16 104 H 4 L 113/69 94 09/28/18 17:06 85 9 L 107/66 95 09/28/18 17:01 82 5 L 103/76 94 09/28/18 16:56 84 5 L 110/65 94 09/28/18 16:51 79 7 L 120/66 94 09/28/18 16:46 102 H 13 107/70 95 09/28/18 16:41 91 H 11 L 100/69 96 09/28/18 16:36 85 16 110/64 95 09/28/18 16:31 98 H 6 L 123/72 95 09/28/18 16:26 104 H 16 107/70 95 09/28/18 16:21 107 H 15 117/81 95 09/28/18 16:16 91 H 12 124/81 95 09/28/18 16:11 95 H 19 119/83 97 09/28/18 16:07 91 H 16 109/70 96 09/28/18 16:01 98 H 15 105/67 93 09/28/18 15:58 92 H 18 104/64 97 09/28/18 15:56 95 H 13 107/66 95 09/28/18 15:55 121 H 16 130/80 95 09/28/18 15:51 109 H 26 H 100/71 96 09/28/18 15:50 102 H 17 98/65 L 93 09/28/18 15:48 94 H 13 93/68 L 95 09/28/18 15:39 134 H 18 119/66 09/28/18 15:07 97.7 F 110 H 20 102/59 L 97
[2018-09-28] MEDS ORDERED: ONDANSETRON INJ 2 MG/ML 2 ML VIAL IV PRN (19:56)
[2018-09-28] MEDS ORDERED: POLYETHYLENE (MIRALAX) 17 GM PACK PO PRN (19:56)
[2018-09-28] MEDS ORDERED: dilTIAZem HCl 125 MG in DEXTROSE 5% 100 ML IV SCH (19:56)
[2018-09-28] MEDS ORDERED: MAGNESIUM HYDROXIDE SUSP 30 ML UDC PO PRN (19:56)
[2018-09-28] MEDS ORDERED: ALUMINUM/MAGNESIUM SUSP 30 ML UDC PO PRN (19:56)
[2018-09-28] MEDS ORDERED: ACETAMINOPHEN 325 MG TAB PO PRN (19:56)
[2018-09-28] MEDS ORDERED: GLUCOSE 40% GEL 15 GM TUBE PO PRN (20:15)
[2018-09-28] MEDS ORDERED: CARBOHYDRATES FOR HYPOGLYCEMIA PO PRN (20:15)
[2018-09-28] MEDS ORDERED: GLUCOSE 10 TABS/TUBE PO PRN (20:15)
[2018-09-28] MEDS ORDERED: GLUCAGON FOR INJ 1 MG VIAL IM PRN (20:15)
[2018-09-28] MEDS ORDERED: DEXTROSE 50% 50 ML SYRINGE IV PRN (20:15)
[2018-09-28] MEDS: CARVEDILOL 25 MG TAB PO SCH (21:49)
[2018-09-28] MEDS: ATORVASTATIN 40 MG TAB PO SCH (21:49)
[2018-09-28] MEDS: INSULIN ASPART 100 UNITS/ML 3 ML PEN SC SCH (21:50)
[2018-09-28] MEDS: LATANOPROST 0.005% OP SOLN 2.5 ML BTL OPB SCH (21:50)
[2018-09-29 07:13] LABS: Prothrombin Time 28.6 Seconds (9.0-12.0)
[2018-09-29] MEDS: TIMOLOL MALEATE 0.25% OP SOLN 5 ML BTL OPB SCH (07:54)
[2018-09-29] MEDS: CARVEDILOL 25 MG TAB PO SCH ×2 (07:54→20:23)
[2018-09-29] MEDS: ASPIRIN 81 MG ECTAB PO SCH (07:55)
[2018-09-29] MEDS ORDERED: dilTIAZem ER 120 MG CAPCR PO SCH (09:00)
--- NOTE | 2018-09-29 09:03 | Cardiology Consultation ---
Date of Consultation September 29, 2018 Assessment & Plan (1) Atrial fibrillation with RVR: 2. Hypertension 3. History of VTE/Antithrombin III deficiency 4. Type 2 diabetes 5. Dyslipidemia Patient with history of atrial fibrillation diagnosed in June 2018 status post electrical cardioversion at that time. Over the past several days he has experienced decreased exercise tolerance, shortness of breath and atypical chest/shoulder pain. He was discovered to be in atrial fibrillation with rapid ventricular response. Cardiac enzymes are negative. On exam he is well perfused without any significant vascular congestion. Heart rate has been controlled on diltiazem infusion plus home carvedilol. Patient's symptoms have improved. Recommend attempting rate control strategy. Switch IV diltiazem to oral diltiazem ER 120 mg daily. Continue current dose of carvedilol. Continue anticoagulation with warfarin. Recommend patient walk the halls, if feeling well this afternoon and rate remains controlled OK to discharge from cardiac standpoint with followup in our office next week. If he remains symptomatic despite adequate rate control can consider electrical cardioversion versus antiarrhythmic therapy as outpatient. Supervising Physician Co-Signing Physician Notes Patient seen and examined with Physician program support assistant Katya Funes and again in the afternoon. Agree with assessment and plan as outlined. Briefly, Mr. Jones is a 78 year old man well known to me from the outpatient setting and prior hospitalization in Jun 2018 when presented with new AF + RVR. At that time underwent cardioversion and beta-navin increased. Did well until recently when had recurrent symptoms and again shown to be an rapid AF. Patient started on dilt gtt overnight with improved rate control. This morning was symptom free, still in AF in 80-90s at rest. Well perfused on exam with no signs of heart failure. Transitioned to PO diltiazem and drip discontinued. This afternoon had recurrent symptomatic RVR to 120s and given an additional 30mg PO with improved rates/symptoms. Plan: -- Still would favor rate control initially in setting of recent subtherapeutic INRs. -- Can increase cardizem to 180mg tomorrow -- continue home coumadin. -- if rate controlled and symptom free could potentially go home tomorrow. If symptoms persist may have to consider TYSHAWN/cardioversion, antiarrhythmic Will continue to follow History of Present Illness Reason for Consultation: atrial fibrillation Attending Physician: Rachel Delgado MD History of Present Illness Mr. 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 He is well known to us from the outpatient setting. In June 2018 he was admitted with new onset atrial fibrillation with rapid ventricular response. He was symptomatic with left sided chest and arm pain as well as palpitations. Cardiac enzymes were normal and echo demonstrated normal LV systolic function and wall motion. He underwent successful electrical cardioversion on 06/29/18. His carvedilol was increased to 25 mg BID for rate control and he was continued on his usual anticoagulation with warfarin. Since then he was doing well from a cardiac standpoint without any recurrence of atrial fibrillation. Over the weekend he started feeling poorly. He initially had a cough, fatigue and decreased exercise tolerance. Yesterday he felt worse with shortness of breath, lightheadedness and mild chest/shoulder discomfort. He did not experience palpitations. He was seen by his PCP and was noted to be in atrial fibrillation with RVR. He was referred to the emergency department and initial EKG noted atrial fibrillation at 139 bpm. He was initiated on IV diltiazem with improvement in his ventricular response. Patient reports feeling much better and close to his baseline. He denies palpitations. His shortness of breath has improved. No chest pain, orthopnea, PND or peripheral edema. No abnormal bleeding. ROS: 10 point ROS completed and otherwise negative unless stated in HPI. Allergies Allergy/AdvReac Type Severity Reaction Status Date / Time meperidine Allergy Mild OVER-SEDATION, Verified 09/28/18 16:08 N/V W/ SYNCOPE Home Medications Home Medications Medication Instructions Recorded Confirmed Type aspirin [Aspir-81] 81 mg PO DAILY 06/28/18 09/28/18 History atorvastatin 40 mg PO HS 06/28/18 09/28/18 History latanoprost 1 drp OPB HS 06/28/18 09/28/18 History metformin 500 mg PO BID 06/28/18 09/28/18 History timolol maleate 1 drp OPB DAILY 06/28/18 09/28/18 History lisinopril 5 mg PO DAILY #30 tab 06/29/18 09/28/18 Rx carvedilol 25 mg PO BID 08/26/18 09/28/18 History leuprolide (4 month) 30 mg SUBCUT Q16W 08/26/18 09/28/18 History Patient History Medical History Rectus sheath hematoma (Acute) Atrial fibrillation with RVR (Acute) Prostate cancer (Chronic) "Rising PSA Status post biopsy revealing adenocarcinoma [place] 3+3 Status post hormonal suppression Status post completion of radiation therapy 12/17/2002 received 7920 cGy Slow rise of the PSA" On 10/17/15 15:50 Miladys Price wrote "Rising PSA Status post biopsy revealing adenocarcinoma [place] 3+3 Status post hormonal suppression Status post completion of radiation therapy 12/17/2002 received 7920 cGy" Atrial fibrillation Atrial fibrillation Encounter for pre-operative examination Hypertension No pertinent family history Rapid atrial fibrillation Surgical History No pertinent past surgical history Family History Mother Cancer Social History Preferred Language: Greenlandic Communication Ability: Effective Beliefs That Will Affect Care: Pentecostal Pentecostal Beliefs: Jehovah witness Current Living Situation: Spouse Other Information That Helps Us Care for You: No Feels Safe at Home: Yes Safety Concerns: Feels Safe At This Time Smoking Status: Never smoker Hx Alcohol Use: No Hx Substance Use: No Physical Exam 2 Physical Exam: General: No acute distress, comfortable. HEENT: Head is normal. PERRLA. EOMI. Sclerae anicteric. Ears, nose and throat unremarkable. Mucous membranes moist. Neck: Normal carotid upstrokes, no bruits. No appreciable JVD. Lungs: Clear to auscultation bilaterally without rales, rhonchi or wheezes. Cardiac: Irregularly irregular. S1-S2 normal. No appreciable murmur, gallop or rub. Abdomen: Soft and nontender. Bowel sounds normal. No mass or organomegaly. No abdominal bruit. Extremities/vascular: Well perfused. No peripheral edema. Radial, DP and PT pulses 2+ bilaterally Skin: No rash or abnormal lesions. Normal turgor. Neurologic: Nonfocal Psychiatric: Affect appropriate. Alert and oriented. Results & Data Vital Signs (Past 12 Hours) Vital Signs Temp Pulse Pulse Pulse Resp BP Pulse Ox 09/29/18 07:29 36.9 C 66 17 111/68 94 09/29/18 03:52 36.4 C L 84 18 107/68 96 09/29/18 00:18 73 09/28/18 23:36 36.6 C 83 20 113/71 95 09/28/18 23:22 80 Laboratory Results Laboratory Results - last 24 hr 09/28/18 09/28/18 09/28/18 15:44 15:44 15:44 WBC 5.56 RBC 4.27 L Hgb 13.5 L Hct 38.1 L MCV 89.2 MCH 31.6 MCHC 35.4 RDW Std Deviation 43.0 RDW Coeff of Mickey 13.3 Plt Count 153 MPV 9.1 Immature Gran % (Auto) 0.2 Neut % (Auto) 50.2 Lymph % (Auto) 35.1 [place] % (Auto) 10.8 Eos % (Auto) 3.2 Baso % (Auto) 0.5 Immature Gran # (Auto) 0.01 Neut # (Auto) 2.79 Lymph # (Auto) 1.95 [place] # (Auto) 0.60 H Eos # (Auto) 0.18 Baso # (Auto) 0.03 PT 27.7 H INR 2.9 H APTT 34.1 H PTT Ratio 1.3 Sodium 138 Potassium 5.0 Chloride 105 Carbon Dioxide 24 Anion Gap 9.0 BUN 23 H Creatinine 1.22 Est Cr Clr Drug Dosing Not Reportable Est GFR ( Amer) 65.0 Est GFR (Non-Af Amer) 56.0 BUN/Creatinine Ratio 18.8 Glucose 100 H POC Glucose Calcium 9.1 Magnesium 1.8 Total Bilirubin 0.6 AST 25 ALT 33 Alkaline Phosphatase 129 H Troponin I < 0.015 Total Protein 7.0 Albumin 3.5 Globulin 3.5 Albumin/Globulin Ratio 1.0 TSH 1.930 Urine Color Urine Appearance Urine pH Ur Specific Delta Urine Protein Urine Glucose (UA) Urine Ketones Urine Blood Urine Nitrite Urine Bilirubin Urine Urobilinogen Ur Leukocyte Esterase 09/28/18 09/28/18 09/29/18 17:30 20:04 06:26 WBC RBC Hgb Hct MCV MCH MCHC RDW Std Deviation RDW Coeff of Mickey Plt Count MPV Immature Gran % (Auto) Neut % (Auto) Lymph % (Auto) [place] % (Auto) Eos % (Auto) Baso % (Auto) Immature Gran # (Auto) Neut # (Auto) Lymph # (Auto) [place] # (Auto) Eos # (Auto) Baso # (Auto) PT 28.6 H INR 3.0 H APTT PTT Ratio Sodium Potassium Chloride Carbon Dioxide Anion Gap BUN Creatinine Est Cr Clr Drug Dosing Est GFR ( Amer) Est GFR (Non-Af Amer) BUN/Creatinine Ratio Glucose POC Glucose 100 H Calcium Magnesium Total Bilirubin AST ALT Alkaline Phosphatase Troponin I Total Protein Albumin Globulin Albumin/Globulin Ratio TSH Urine Color Yellow Urine Appearance Clear Urine pH 5.0 Ur Specific Delta 1.017 Urine Protein Negative Urine Glucose (UA) Negative Urine Ketones Negative Urine Blood Negative Urine Nitrite Negative Urine Bilirubin Negative Urine Urobilinogen Negative Ur Leukocyte Esterase Negative 09/29/18 07:10 WBC RBC Hgb Hct MCV MCH MCHC RDW Std Deviation RDW Coeff of Mickey Plt Count MPV Immature Gran % (Auto) Neut % (Auto) Lymph % (Auto) [place] % (Auto) Eos % (Auto) Baso % (Auto) Immature Gran # (Auto) Neut # (Auto) Lymph # (Auto) [place] # (Auto) Eos # (Auto) Baso # (Auto) PT INR APTT PTT Ratio Sodium Potassium Chloride Carbon Dioxide Anion Gap BUN Creatinine Est Cr Clr Drug Dosing Est GFR ( Amer) Est GFR (Non-Af Amer) BUN/Creatinine Ratio Glucose POC Glucose 113 H Calcium Magnesium Total Bilirubin AST ALT Alkaline Phosphatase Troponin I Total Protein Albumin Globulin Albumin/Globulin Ratio TSH Urine Color Urine Appearance Urine pH Ur Specific [place] Urine Protein Urine Glucose (UA) Urine Ketones Urine Blood Urine Nitrite Urine Bilirubin Urine Urobilinogen Ur Leukocyte Esterase Diagnostic Findings Chest xray-- cardiomegaly with mild pulmonary vascular congestion. Mild chronic interstitial coarsening ECG Additional Comments: EKG 09/28/18-- afib with RVR Tele reviewed-- afib heart rate 70-80s this am
[2018-09-29] MEDS: INSULIN ASPART 100 UNITS/ML 3 ML PEN SC SCH ×4 (09:24→21:30)
[2018-09-29] MEDS ORDERED: dilTIAZem HCL 30 MG TAB PO ONE ×2 (13:29→23:26)
--- NOTE | 2018-09-29 14:26 | Hospitalist Progress Note ---
Date of Service September 29, 2018 Assessment & Plan (1) Atrial fibrillation with RVR: This patient is a 78 y/o M Hx PAF, HTN, HLD, DM II, prostate CA, glaucoma, DVT/PE who presented with lightheadedness, central CP and shoulder pain. The symptoms are similar to his symptoms when he was admitted for AF 08/26. Rapid AF was confirmed on arrival to the ER. His symptoms largely resolved with a Cardizem bolus and he was admitted on a drip. Initial labs are unremarkable and an INR is therapeutic Rapid AF, lightheaded with mild CP - resolved with rate improvement but palpitations and lightheadedness along with some blurry vision returned with return of elevated heart rates today. Echocardiogram from recently had preserved EF -Discussed case with cardiology -Gave diltiazem 30 mg p.o. x1 this afternoon we will give another dose this evening -Given that his INR was subtherapeutic within the last month due to a hematoma of his rectus sheath, he could not have a cardioversion unless he underwent a TYSHAWN first-trying to avoid this -Going for a rate control strategy -Cardiology recommends increasing diltiazem to 180 mg in the morning -Continue carvedilol 25 mg p.o. twice daily -Continue Coumadin at current dose, INR remains therapeutic -Follow INR in the morning -Appreciate cardiology consultation (2) Hyperlipidemia: Continue statin (3) HTN (hypertension), benign: Blood pressure stable - cont carvedilol, diltiazem - Lisinopril held to allow for rate agents. (4) Diabetes mellitus type 2 in obese: Very well controlled, most recent hemoglobin A1c was only 6.0% -Continue sliding scale insulin while here and resume metformin upon discharge (5) Chronic anticoagulation: For history of DVT/PE as well as atrial fibrillation -On Coumadin -Check INR in the morning (6) History of pulmonary embolism: On lifelong anticoagulation as above (7) Glaucoma: Chronic - cont Timolol, Latanoprost (8) Prostate cancer: - f/u as outpt - presently treated with leuprolide. (9) Obesity: BMI 31.5 -Needs weight loss (10) DVT prophylaxis: Coumadin Disposition-remain on telemetry overnight and if rates better controlled in the morning, can go to home tomorrow Subjective Pt very anxious about his palpitations. HR is back into the 120s at times in Afib on tele. No chest pain. having some blurry vision a bit like he did when he came in with the rapid a-fib last night, no blind spots. No SOB. No abd pain. is hungry, no nausea Discussed the case with Cardiology Tele with Afib, rates low 100s Review of Systems Review of Systems: All systems reviewed & are unremarkable except as noted in HPI & below Physical Exam Constitutional: WD/WN, vitals as above Eyes: PERRL, conjunctivae normal, anicteric sclerae ENMT: external ear and nose normal, oropharynx normal Neck: trachea midline, no thyromegaly Respiratory: normal respiratory effort, lungs clear to auscultation Cardiovascular: Rate/Rhythm: + tachycardic and + irregularly irregular Heart Sounds: no murmur Extremities: + edema (trace edema legs bilat) Gastrointestinal (Abdomen): normal bowel sounds, soft, nontender, no hepatosplenomegaly Musculoskeletal: Extremities: extremities normal to inspection; no cyanosis and no clubbing Skin: no rashes, warm and dry Neurologic: moves all extremities and awake; no focal motor deficits Psychiatric: Orientation: alert and oriented x 3 Affect: + anxious affect Results & Data Vital Signs (Past 12 Hours) Vital Signs Temp Pulse Pulse Pulse Resp BP BP 09/29/18 13:52 128/69 09/29/18 11:30 36.5 C 82 17 115/75 09/29/18 08:00 81 09/29/18 07:29 36.9 C 66 17 111/68 09/29/18 03:52 36.4 C L 84 18 107/68 Pulse Ox 09/29/18 13:52 09/29/18 11:30 94 09/29/18 08:00 09/29/18 07:29 94 09/29/18 03:52 96 Laboratory Results 09/29/18 09/29/18 09/29/18 Range/Units 11:28 07:10 06:26 WBC (4.8-10.8) K/uL RBC (4.7-6.1) M/uL Hgb (14.0-18.0) g/dL Hct (42-52) % MCV (80-100) fL MCH (25-34) pg MCHC (32-36) g/dL RDW Std Deviation (36.4-46.3) fL RDW Coeff of Mickey (11.5-14.5) % Plt Count (130-400) K/uL MPV (7.4-10.4) fL Immature Gran % (Auto) % Neut % (Auto) % Lymph % (Auto) % Mcdonough % (Auto) % Eos % (Auto) % Baso % (Auto) % Immature Gran # (Auto) (0.00-0.02) K/uL Neut # (Auto) (1.4-6.5) K/uL Lymph # (Auto) (1.2-3.4) K/uL Mcdonough # (Auto) (0.11-0.59) K/uL Eos # (Auto) (0-0.5) K/uL Baso # (Auto) (0-0.2) K/uL PT 28.6 H (9.0-12.0) Seconds INR 3.0 H (0.9-1.1) APTT (21.0-31.0) Seconds PTT Ratio Sodium (136-145) mmol/L Potassium (3.5-5.1) mmol/L Chloride (98-107) mmol/L Carbon Dioxide (21-32) mmol/L Anion Gap (3-11) BUN (7-18) mg/dl Creatinine (0.6-1.4) mg/dl Est Cr Clr Drug Dosing Est GFR ( Amer) Est GFR (Non-Af Amer) BUN/Creatinine Ratio (10-20) Glucose (70-99) mg/dl POC Glucose 133 H 113 H (70-99) Calcium (8.5-10.1) mg/dl Magnesium (1.8-2.4) mg/dl Total Bilirubin (0.2-1) mg/dl AST (15-37) U/L ALT (12-78) U/L Alkaline Phosphatase (45-117) U/L Troponin I (0-0.045) ng/ml Total Protein (6.4-8.2) gm/dl Albumin (3.4-5.0) gm/dl Globulin (2.5-4.0) gm/dl Albumin/Globulin Ratio (0.9-2) TSH (0.300-4.500) uIu/ml Urine Color Urine Appearance (Clear) Urine pH (4.5-7.5) Ur Specific [place] (1.000-1.030) Urine Protein (Negative) Urine Glucose (UA) (Negative) Urine Ketones (Negative) Urine Blood (Negative) Urine Nitrite (Negative) Urine Bilirubin (Negative) Urine Urobilinogen (Negative) Ur Leukocyte Esterase (Negative) 09/28/18 09/28/18 09/28/18 Range/Units 20:04 17:30 15:44 WBC (4.8-10.8) K/uL RBC (4.7-6.1) M/uL Hgb (14.0-18.0) g/dL Hct (42-52) % MCV (80-100) fL MCH (25-34) pg MCHC (32-36) g/dL RDW Std Deviation (36.4-46.3) fL RDW Coeff of Mickey (11.5-14.5) % Plt Count (130-400) K/uL MPV (7.4-10.4) fL Immature Gran % (Auto) % Neut % (Auto) % Lymph % (Auto) % Mcdonough % (Auto) % Eos % (Auto) % Baso % (Auto) % Immature Gran # (Auto) (0.00-0.02) K/uL Neut # (Auto) (1.4-6.5) K/uL Lymph # (Auto) (1.2-3.4) K/uL Mcdonough # (Auto) (0.11-0.59) K/uL Eos # (Auto) (0-0.5) K/uL Baso # (Auto) (0-0.2) K/uL PT (9.0-12.0) Seconds INR (0.9-1.1) APTT (21.0-31.0) Seconds PTT Ratio Sodium 138 (136-145) mmol/L Potassium 5.0 (3.5-5.1) mmol/L Chloride 105 (98-107) mmol/L Carbon Dioxide 24 (21-32) mmol/L Anion Gap 9.0 (3-11) BUN 23 H (7-18) mg/dl Creatinine 1.22 (0.6-1.4) mg/dl Est Cr Clr Drug Dosing Not Reportable Est GFR ( Amer) 65.0 Est GFR (Non-Af Amer) 56.0 BUN/Creatinine Ratio 18.8 (10-20) Glucose 100 H (70-99) mg/dl POC Glucose 100 H (70-99) Calcium 9.1 (8.5-10.1) mg/dl Magnesium 1.8 (1.8-2.4) mg/dl Total Bilirubin 0.6 (0.2-1) mg/dl AST 25 (15-37) U/L ALT 33 (12-78) U/L Alkaline Phosphatase 129 H (45-117) U/L Troponin I < 0.015 (0-0.045) ng/ml Total Protein 7.0 (6.4-8.2) gm/dl Albumin 3.5 (3.4-5.0) gm/dl Globulin 3.5 (2.5-4.0) gm/dl Albumin/Globulin Ratio 1.0 (0.9-2) TSH 1.930 (0.300-4.500) uIu/ml Urine Color Yellow Urine Appearance Clear (Clear) Urine pH 5.0 (4.5-7.5) Ur Specific [place] 1.017 (1.000-1.030) Urine Protein Negative (Negative) Urine Glucose (UA) Negative (Negative) Urine Ketones Negative (Negative) Urine Blood Negative (Negative) Urine Nitrite Negative (Negative) Urine Bilirubin Negative (Negative) Urine Urobilinogen Negative (Negative) Ur Leukocyte Esterase Negative (Negative) 09/28/18 09/28/18 Range/Units 15:44 15:44 WBC 5.56 (4.8-10.8) K/uL RBC 4.27 L (4.7-6.1) M/uL Hgb 13.5 L (14.0-18.0) g/dL Hct 38.1 L (42-52) % MCV 89.2 (80-100) fL MCH 31.6 (25-34) pg MCHC 35.4 (32-36) g/dL RDW Std Deviation 43.0 (36.4-46.3) fL RDW Coeff of Mickey 13.3 (11.5-14.5) % Plt Count 153 (130-400) K/uL MPV 9.1 (7.4-10.4) fL Immature Gran % (Auto) 0.2 % Neut % (Auto) 50.2 % Lymph % (Auto) 35.1 % Mcdonough % (Auto) 10.8 % Eos % (Auto) 3.2 % Baso % (Auto) 0.5 % Immature Gran # (Auto) 0.01 (0.00-0.02) K/uL Neut # (Auto) 2.79 (1.4-6.5) K/uL Lymph # (Auto) 1.95 (1.2-3.4) K/uL Mcdonough # (Auto) 0.60 H (0.11-0.59) K/uL Eos # (Auto) 0.18 (0-0.5) K/uL Baso # (Auto) 0.03 (0-0.2) K/uL PT 27.7 H (9.0-12.0) Seconds INR 2.9 H (0.9-1.1) APTT 34.1 H (21.0-31.0) Seconds PTT Ratio 1.3 Sodium (136-145) mmol/L Potassium (3.5-5.1) mmol/L Chloride (98-107) mmol/L Carbon Dioxide (21-32) mmol/L Anion Gap (3-11) BUN (7-18) mg/dl Creatinine (0.6-1.4) mg/dl Est Cr Clr Drug Dosing Est GFR ( Amer) Est GFR (Non-Af Amer) BUN/Creatinine Ratio (10-20) Glucose (70-99) mg/dl POC Glucose (70-99) Calcium (8.5-10.1) mg/dl Magnesium (1.8-2.4) mg/dl Total Bilirubin (0.2-1) mg/dl AST (15-37) U/L ALT (12-78) U/L Alkaline Phosphatase (45-117) U/L Troponin I (0-0.045) ng/ml Total Protein (6.4-8.2) gm/dl Albumin (3.4-5.0) gm/dl Globulin (2.5-4.0) gm/dl Albumin/Globulin Ratio (0.9-2) TSH (0.300-4.500) uIu/ml Urine Color Urine Appearance (Clear) Urine pH (4.5-7.5) Ur Specific [place] (1.000-1.030) Urine Protein (Negative) Urine Glucose (UA) (Negative) Urine Ketones (Negative) Urine Blood (Negative) Urine Nitrite (Negative) Urine Bilirubin (Negative) Urine Urobilinogen (Negative) Ur Leukocyte Esterase (Negative)
[2018-09-29] MEDS ORDERED: WARFARIN SOD 6 MG TAB PO SCH (16:00)
[2018-09-29] MEDS: ATORVASTATIN 40 MG TAB PO SCH (20:23)
[2018-09-29] MEDS: LATANOPROST 0.005% OP SOLN 2.5 ML BTL OPB SCH (20:24)
[2018-09-30 06:44] LABS: INR 1.9 (0.9-1.1); Prothrombin Time 18.2 Seconds (9.0-12.0)
[2018-09-30 07:09] LABS: BUN Creatinine Ratio 17.6 (10-20); Calcium 8.4 mg/dl (8.5-10.1); Creatinine Clr Calc Pharmacy 56.2 ml/min; Est GFR (African American) 67.6; Est GFR (Non-African American) 58.3; Potassium 4.3 mmol/L (3.5-5.1)
[2018-09-30] MEDS ORDERED: dilTIAZem ER 120 MG CAPCR PO SCH (09:00)
[2018-09-30] MEDS: ASPIRIN 81 MG ECTAB PO SCH (09:00)
[2018-09-30] MEDS: CARVEDILOL 25 MG TAB PO SCH (09:00)
[2018-09-30] MEDS ORDERED: dilTIAZem ER 180 MG CAPCR PO SCH (09:00)
[2018-09-30] MEDS: TIMOLOL MALEATE 0.25% OP SOLN 5 ML BTL OPB SCH (09:01)
[2018-09-30] MEDS: INSULIN ASPART 100 UNITS/ML 3 ML PEN SC SCH ×2 (09:35→11:47)
--- NOTE | 2018-09-30 09:49 | Cardiology Progress Note ---
Date of Service September 30, 2018 Assessment & Plan (1) Atrial fibrillation with RVR: 2. Hypertension 3. History of VTE/Antithrombin III deficiency 4. Type 2 diabetes 5. Dyslipidemia Patient with history of atrial fibrillation diagnosed in June 2018 status post electrical cardioversion and increase in beta navin at that time. He did well until several days ago when he developed recurrent symptoms and was found to be in afib with RVR. Yesterday was converted from dilt drip to PO diltiazem. He is asymptomatic today but rate remains uncontrolled at times. On exam he is well perfused without signs of heart failure. Recommend further attempts at rate control given recent subtherapeutic INRs. Will consider switching Eliquis as outpatient. Recommend increasing diltiazem to 240 mg daily. Continue current dose of carvedilol. If heart rate improves and patient remains asymptomatic OK t o discharge this afternoon with close cardiology followup. Subjective Patient feeling better today. He has been walking halls without any limiting sy mptoms. No chest pain, shortness of breath, orthopnea or PND. No palpitations, lightheadedness, near syncope or syncope. Was transitioned to PO diltiazem yesterday and heart rate is still elevated at times. Tele reviewed-- afib with ventricular rate low 100s Review of Systems Review of Systems: All systems reviewed & are unremarkable except as noted in HPI & below Physical Exam Physical Exam: General: No acute distress, comfortable. HEENT: Head is normal. PERRLA. EOMI. Sclerae anicteric. Ears, nose and throat unremarkable. Mucous membranes moist. Neck: Normal carotid upstrokes, no bruits. No appreciable JVD. Lungs: Clear to auscultation bilaterally without rales, rhonchi or wheezes. Cardiac: Irregularly irregular. S1-S2 normal. No appreciable murmur, gallop or rub. Abdomen: Soft and nontender. Bowel sounds normal. No mass or organomegaly. No abdominal bruit. Extremities/vascular: Well perfused. No peripheral edema. Radial, DP and PT pulses 2+ bilaterally Skin: No rash or abnormal lesions. Normal turgor. Neurologic: Nonfocal Psychiatric: Affect appropriate. Alert and oriented. Results & Data Vital Signs (Past 12 Hours) Vital Signs Temp Pulse Pulse Resp BP BP Pulse Ox 09/30/18 08:00 37.0 C 58 L 20 119/72 90 09/30/18 07:31 101 H 09/30/18 06:53 36.6 C 62 18 124/83 95 09/30/18 04:48 36.5 C 72 17 105/67 97 09/29/18 23:12 36.8 C 121 H 19 108/71 95 Laboratory Results Laboratory Results - last 24 hr 09/29/18 09/29/18 09/29/18 11:28 17:03 20:15 PT INR Sodium Potassium Chloride Carbon Dioxide Anion Gap BUN Creatinine Est Cr Clr Drug Dosing Est GFR ( Amer) Est GFR (Non-Af Amer) BUN/Creatinine Ratio Glucose POC Glucose 133 H 138 H 109 H Calcium Magnesium 09/30/18 09/30/18 09/30/18 05:50 05:50 07:30 PT 18.2 H INR 1.9 H Sodium 137 Potassium 4.3 Chloride 106 Carbon Dioxide 26 Anion Gap 5.0 BUN 21 H Creatinine 1.18 Est Cr Clr Drug Dosing 56.2 Est GFR ( Amer) 67.6 Est GFR (Non-Af Amer) 58.3 BUN/Creatinine Ratio 17.6 Glucose 118 H POC Glucose 126 H Calcium 8.4 L Magnesium 2.0
--- NOTE | 2018-09-30 15:28 | Discharge Summary ---
Date of Service September 30, 2018 Admission HPI Per Admitting Provider 78 y/o M Hx PAF, HTN, HLD, DM II, prostate CA, glaucoma, DVT/PE. Presents with lightheadedness, central CP and shoulder pain. The symptoms are similar to his symptoms when he was admitted for AF 08/26. Rapid AF was confirmed on arrival to the ER. His symptoms largely resolved with a Cardizem bolus and he is admitted on a drip. Initial labs are unremarkable and an INR is therapeutic at 2.9. 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 Family: Mother due to CA - unspecified Father due to an aneurysm and a CVA Principal Diagnosis Rapid atrial fibrillation Discharge Exam Constitutional WD/WN, vitals as above Eyes PERRL, conjunctivae normal, anicteric sclerae ENMT external ear and nose normal, oropharynx normal Neck trachea midline, no thyromegaly Respiratory normal respiratory effort, lungs clear to auscultation Cardiovascular Rate/Rhythm: regular rate; + abnormal rhythm Heart Sounds: no murmur Extremities: + edema (trace edema legs bilat) Gastrointestinal (Abdomen) normal bowel sounds, soft, nontender, no hepatosplenomegaly Musculoskeletal Extremities: extremities normal to inspection; no cyanosis and no clubbing Skin no rashes, warm and dry Neurologic moves all extremities and awake; no focal motor deficits Psychiatric Orientation: alert and oriented x 3 Discharge Data Allergies Allergy/AdvReac Type Severity Reaction Status Date / Time meperidine Allergy Mild OVER-SEDATION, Verified 09/28/18 16:08 N/V W/ SYNCOPE Consultations 09/28/18 16:29 ED Decision to Admit Stat 09/28/18 19:56 Consult Cardiology Stat Ordered Studies CXR Hospital Course (1) Atrial fibrillation with RVR: This patient is a 78 y/o M Hx PAF, HTN, HLD, DM II, prostate CA, glaucoma, DVT/PE who presented with lightheadedness, central CP and shoulder pain. The symptoms are similar to his symptoms when he was admitted for AF 08/26. Rapid AF was confirmed on arrival to the ER. His symptoms largely resolved with a Cardizem bolus and he was admitted on a drip. Initial labs are unremarkable and an INR is therapeutic Rapid AF, lightheaded with mild CP - resolved with rate improvement -rates controlled with the addition of diltiazem 240mg daily, rates now in the 60s Echocardiogram from recently had preserved EF -Discussed case with cardiology -Given that his INR was subtherapeutic within the last month due to a hematoma of his rectus sheath, he could not have a cardioversion unless he underwent a TYSHAWN first-trying to avoid this -Going for a rate control strategy -Continue carvedilol 25 mg p.o. twice daily -Continue Coumadin at current dose, INR slightly low today at 1.9 down from 3.0 the day before -Follow INR in 2 days as outpt--> no need for bridging anticoagulation -Appreciate cardiology consultation (2) Hyperlipidemia: Continue statin (3) HTN (hypertension), benign: Blood pressure stable - cont carvedilol, diltiazem - Lisinopril held to allow for rate agents, but can be restarted after discharge (4) Diabetes mellitus type 2 in obese: Very well controlled, most recent hemoglobin A1c was only 6.0% -received sliding scale insulin while here and resume metformin upon discharge (5) Chronic anticoagulation: For history of DVT/PE as well as atrial fibrillation -On Coumadin -Check INR in 2 days as outpt INR 1.9 on day of dc (6) History of pulmonary embolism: On lifelong anticoagulation as above (7) Glaucoma: Chronic - cont Timolol, Latanoprost (8) Prostate cancer: - f/u as outpt - presently treated with leuprolide. (9) Obesity: BMI 31.5 -Needs weight loss (10) DVT prophylaxis: Coumadin Disposition-stable for dc to home, close f/u with Cardiology and PCP Total Time Total Time Spent Total Time Spent (In Minutes): >30 min Total Time Includes: Examination of the Patient, Discharge Planning, Medication Reconciliation and Communication With Other Providers (Cardiology) Discharge Plan Discharge Items Patient Disposition: Home - Self-Care Reason For Visit: RAPID AF,SYMPTOMATIC Condition: Good Follow-up/Referrals: Derrick Mariscal MD [Primary Care Provider] - 10/05/18 11:30 am (Please, follow up at Dr. Mariscal's office with his associate, Meg SUN, on FridayOctober 05 at 11:30 am. *If you need to change this appointment, call the office at [phone].) Derrick Mas MD [Physician] - 10/09/18 2:15 pm (Please, follow up at [facility] Cardiology Office with Dr. Uriah Mas on FridayOctober 09 at 2:15 pm. *If you need to change this appointment, call the office at [phone].) Addtl Provider Instructions: You were admitted with rapid atrial fibrillation and had a new medication added to control your heart rate. Please have your INR checked on Friday and continue the Coumadin 6 mg daily. Please follow up with your PCP and with Cardiology as scheduled for you. Prescriptions: New diltiazem HCl 240 mg capsule,extended release 24hr 240 mg PO DAILY Qty: 30 RF: 0 Continued latanoprost 0.005 % drops 1 drp OPB HS RF: 0 atorvastatin 40 mg tablet 40 mg PO HS RF: 0 metformin 500 mg tablet 500 mg PO BID RF: 0 aspirin [Aspir-81] 81 mg Tablet,Delayed Release (Dr/Ec) 81 mg PO DAILY RF: 0 timolol maleate 0.5 % drops 1 drp OPB DAILY RF: 0 lisinopril 5 mg tablet 5 mg PO DAILY Qty: 30 RF: 0 carvedilol 25 mg Tablet 25 mg PO BID RF: 0 leuprolide (4 month) 30 mg Syringe 30 mg subcut Q16W RF: 0 Stand-Alone Forms: [facility] Discharge Orders: Discharge Order (Routine); Ordered 09/30/18 Ordered By: Rcahel Delgado Admission Data Admit Date/Time: 09/28/18 18:52 Attending Provider: Rachel Delgado Admit Provider: Bernabe Park Primary Care Provider: Derrick Mariscal Other Providers: Bernabe Park ; Derrick Mas Service: Telemetry
[2018-09-30] MEDS ORDERED: WARFARIN SOD 6 MG TAB PO SCH (16:00)
== END 2018-09-30 16:39 | disposition home or self-care (01) | DRG 309 ==
LOC: ED 15:04 → SUATTDRO 18:52 → 2S 18:52

== ENCOUNTER 2018-12-26 20:22 | Inpatient (IN) ==
[2018-12-26] MEDS ORDERED: SODIUM CHLORIDE 0.9% 500 ML IV ONE ×2 (20:52→23:24)
--- NOTE | 2018-12-26 21:17 | XRay Report ---
XR chest 1V portable HISTORY: 78 years-old Male Chest Pain acute atypical chest pain COMPARISON: Chest radiograph 09/28/2018 TECHNIQUE: Portable AP view of the chest FINDINGS: Cardiac silhouette is enlarged, unchanged. Calcification of the thoracic aortic arch. Mild chronic in terstitial coarsening without pneumothorax, pleural effusion or overt pulmonary edema. Degenerative c hanges of the shoulders and spine. IMPRESSION: Cardiomegaly without acute process. The above report was generated using voice recognition software. It may contain grammatical, syntax o r spelling errors. Electronically signed by: Russell Larios M.D. 12/26/2018 9:16 PM
[2018-12-26 21:31] LABS: Basophils # (auto) 0.02 K/uL (0-0.2); Basophils % (auto) 0.3 %; Eosinophils # (auto) 0.15 K/uL (0-0.5); Eosinophils % (auto) 2.3 %; Hematocrit (blood only) 42.5 % (42-52); Hemoglobin 14.8 g/dL (14.0-18.0); Immature Granulocytes # (auto) 0.01 K/uL (0.00-0.02); Immature Granulocytes % (auto) 0.2 %; Lymphocytes # (auto) 1.84 K/uL (1.2-3.4); Lymphocytes % (auto) 28.6 %; Mean Corpuscular Hemoglobin 31.5 pg (25-34); Mean Corpuscular Hgb Conc 34.8 g/dL (32-36); Mean Corpuscular Volume 90.4 fL (80-100); Mean Platelet Volume 9.5 fL (7.4-10.4); Monocytes % (auto) 9.3 %; Neutrophils # (auto) 3.81 K/uL (1.4-6.5); Neutrophils % (auto) 59.3 %; Platelet Count 179 K/uL (130-400); RDW Coefficient of Variation 13.4 % (11.5-14.5); RDW Standard Deviation 44.6 fL (36.4-46.3); White Blood Count 6.43 K/uL (4.8-10.8)
[2018-12-26 21:36] LABS: Alanine Aminotransferase 37 U/L (12-78); Albumin Level 3.7 gm/dl (3.4-5.0); Aspartate Aminotransferase 21 U/L (15-37); BUN Creatinine Ratio 12.7 (10-20); Bilirubin Direct 0.2 mg/dl (0-0.2); Blood Urea Nitrogen 19 mg/dl (7-18); Calcium 9.2 mg/dl (8.5-10.1); Carbon Dioxide 26 mmol/L (21-32); Chloride 105 mmol/L (98-107); Est GFR (African American) 50.6; Est GFR (Non-African American) 43.7; Glucose 116 mg/dl (70-99); Lipase 129 U/L (73-393); Potassium 4.3 mmol/L (3.5-5.1); Sodium 138 mmol/L (136-145)
[2018-12-26 21:45] LABS: Alkaline Phosphatase 141 U/L (45-117); Bilirubin,Total 0.8 mg/dl (0.2-1); Globulin 3.7 gm/dl (2.5-4.0); Phosphorus 3.9 mg/dl (2.5-4.9); Total Protein 7.4 gm/dl (6.4-8.2); Troponin I < 0.015 ng/ml (0-0.045)
[2018-12-26 21:57] LABS: T4 Free Thyroxine 1.22 ng/dl (0.8-1.6)
[2018-12-26] MEDS ORDERED: CARVEDILOL 25 MG TAB PO ONE (23:33)
[2018-12-26] MEDS ORDERED: AMIODARONE 200 MG TAB PO ONE (23:33)
--- NOTE | 2018-12-27 00:14 | History & Physical Report ---
Date of Service December 27, 2018 Assessment & Plan (1) Dizziness: 78 y/o M Hx PAF, HTN, HLD, DM II, prostate CA, glaucoma, DVT/PE. Presents with lightheadedness and weakness. He also states that he had some intermittent upper CP which has resolved. The pt has been admitted for similar symptoms related to AF multiple times this yr. He underwent elective cardioversion 2 weeks prior. Rapid AF was confirmed on arrival to the ER. He had been working in his yard around noon when the symptoms began. He tried to work through them but eventually had to stop. His recorded his HR and BP during the onset of his symptoms. His HR is was reported at 105 and his BP was 93/65. On arrival to the ER his HR was 122. He was assessed as clinically dehydrated and provided with a fluid bolus which did improve his HR somewhat. He had not taken his PM meds which include amiodarone and carvedilol at a relatively high dose. These were also provided in the ER. At the time of admission, the pt's lightheadedness persists. Initial labs show mild IVETT and are otherwise unremarkable. 1) Symptomatic AF - he seems to have dizziness and sometimes CP each time he develops AF. His HR is approximately 105 on admission and his symptoms persist. He has had 2 cardioversions and may need to be assessed for ablation as he dose not seem to be able to tolerate AF at a near-normal rate. We will consult cardiology. If he receives his PM amio and carvedilol and does not slow down or revert, we will likely provide Cardizem as this was highly effective during previous admissions. Cont Eliquis. He is NPO in the event that additional cardioversion is required. 2) Vertigo - persists and BP is high - there is some concern for a CVA although he takes Eliquis. we will put him in for an MRI before lowering his BP. 3) DM - placed on a SS 4) HTN, HLD - cont statin and B navin - as mentioned, if his MRI is normal, we will provide additional treatment to lower his BP. Full code - Eliquis prophylaxis Total time for this admit including review of labs, meds, imaging, records - discussion with pt and ER attending - 41 min Present on Admission?: Yes History of Present Illness Chief Complaint: Dizzy Primary Care Provider: Daniel Mariscal MD 78 y/o M Hx PAF, HTN, HLD, DM II, prostate CA, glaucoma, DVT/PE. Presents with lightheadedness and weakness. He also states that he had some intermittent upper CP which has resolved. The pt has been admitted for similar symptoms related to AF multiple times this yr. He underwent elective cardioversion 2 weeks prior. Rapid AF was confirmed on arrival to the ER. He had been working in his yard around noon when the symptoms began. He tried to work through them but eventually had to stop. His recorded his HR and BP during the onset of his symptoms. His HR is was reported at 105 and his BP was 93/65. On arrival to the ER his HR was 122. He was assessed as clinically dehydrated and provided with a fluid bolus which did improve his HR somewhat. He had not taken his PM meds which include amiodarone and carvedilol at a relatively high dose. These were also provided in the ER. At the time of admission, the pt's lightheadedness persists. Initial labs show mild IVETT and are otherwise unremarkable. 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 [employer] - lives with his Family: Mother due to CA - unspecified Father due to an aneurysm and a CVA Allergies Allergy/AdvReac Type Severity Reaction Status Date / Time meperidine Allergy Mild OVER-SEDATION, Verified 12/26/18 21:13 N/V W/ SYNCOPE Home Medications Home Medications Medication Instructions Recorded Confirmed Type latanoprost 1 drp OPB HS 06/28/18 12/26/18 History metformin 500 mg PO BID 06/28/18 12/26/18 History timolol maleate 1 drp OPB QAM 06/28/18 12/26/18 History carvedilol 25 mg PO BID 08/26/18 12/26/18 History amiodarone 200 mg tablet 200 mg PO BID #60 tab 11/30/18 12/26/18 Rx apixaban 5 mg tablet 5 mg PO BID 12/02/18 12/26/18 History aspirin [Aspirin Low Dose] 81 mg PO QAM 12/11/18 12/26/18 History atorvastatin 40 mg tablet 40 mg PO HS #90 tab 12/17/18 12/26/18 Rx bupropion HCl 150 mg PO QPM 12/26/18 12/26/18 History Past Med/Surg History Medical History Obstructive sleep apnea Memory impairment Diabetes mellitus Antithrombin III deficiency (Chronic) Atrial fibrillation persistent Depression Glaucoma LEFT EYE High cholesterol History of hypertension CURRENTLY NOT TAKING MEDS - BP HAS BEEN LOW History of skin cancer MELANOMA AND BASAL CELL Hx of deep venous thrombosis Hx pulmonary embolism Surgical History History of local excision of skin lesion MULTIPLE REMOVAL No history of previous surgery NONE THAT WOULD HAVE TAKEN PT TO OR - ONLY OFFICE FOR REMOVAL SKIN CANCERS Family History Mother Cancer Venous embolism and thrombosis of deep vessels of lower extremity Father Stroke syndrome Social History Preferred Language: Welsh Communication Ability: Effective Public Housing Interviewer Required: No Beliefs That Will Affect Care: Jehovah'S Witness Jehovah'S Witness Beliefs: [place]avah witness Current Living Situation: Spouse Feels Safe at Home: Yes Smoking Status: Never smoker Second Hand Exposure: No ; Hx Alcohol Use: No Hx Substance Use: No Review of Systems Review of Systems: Gen: Denies fevers, night sweats, rigors - fatigue or weakness reported ENT: Denies congestion, throat pain, hearing loss Eyes: Denies acute visual changes CV: Upper CP earlier in day Pulmonary: Denies SOB, cough, wheezing GI: Denies N/V, diarrhea, constipation Neuro: Acute vertigo/dizziness - has a hard time closing his eyes as this exacerbates his symptoms Musculoskeletal: Denies joint pain, inflammation Endocrine: Denies polydipsia, polyuria Skin: Denies acute rashes or ulcers Physical Exam Physical Exam: General: AAO x 3, no distress ENT: No erythema or exudates, no thrush Eyes: WALLY, EOMI Head and neck: Normocephalic, atraumatic, No JVD, neck is supple. Chest/heart: S1,2 irr, tachy Lungs: CTAB, no wheezing or crackles Abdomen: Nontender, nondistended, BS+ Neuro: The exam was essentially nonfocal although he failed a Rhomberg as he could not sit up and close his eyes without losing his balance Musculoskeletal: No joint inflammation, muscle tenderness, FROM Skin: No acute rashes or ulcers Extremities: No clubbing, cyanosis, edema Results & Data Vital Signs (Past 12 Hours) Vital Signs Temp Pulse Resp BP Pulse Ox 12/26/18 23:30 118 H 23 171/108 H 96 12/26/18 23:29 100 H 23 167/111 H 96 12/26/18 22:30 104 H 17 168/112 H 12/26/18 22:00 86 18 171/99 H 12/26/18 21:30 94 H 20 152/103 H 12/26/18 21:08 105 H 22 171/114 H 12/26/18 20:28 97.9 F 122 H 20 176/110 H 96 PG Care Time/CCT Total # of Minutes Spent Total Time Spent with Patient: Total time spent is greater than 50% in coordination of care (as documented) at patient's floor/unit and/or counseling patient:
[2018-12-27 00:38] LABS: Appearance Urine Clear (Clear); Bilirubin Urine Negative (Negative); Blood Urine Negative (Negative); Color Urine Yellow; Glucose Urine UA Negative (Negative); Ketones Urine Negative (Negative); Leukocyte Esterase Urine Negative (Negative); Nitrite Urine Negative (Negative); Protein Urine Negative (Negative); Specific Gravity Urine 1.015 (1.000-1.030); Urobilinogen Urine Negative (Negative)
[2018-12-27] MEDS ORDERED: POLYETHYLENE (MIRALAX) 17 GM PACK PO PRN (01:40)
[2018-12-27] MEDS ORDERED: ACETAMINOPHEN 325 MG TAB PO PRN (01:40)
[2018-12-27] MEDS ORDERED: ONDANSETRON INJ 2 MG/ML 2 ML VIAL IV PRN (01:40)
[2018-12-27] MEDS ORDERED: MAGNESIUM HYDROXIDE SUSP 30 ML UDC PO PRN (01:40)
[2018-12-27] MEDS ORDERED: MoRPHine SULFATE 2 MG/ML CARP IV PRN (01:40)
[2018-12-27] MEDS ORDERED: ALUMINUM/MAGNESIUM SUSP 30 ML UDC PO PRN (01:40)
--- NOTE | 2018-12-27 01:51 | Emergency Department Note ---
Entered by Torrie Braun acting as a scribe for History of Present Illness General Chief complaint: Dizziness Stated complaint: LIGHTHEADED,HIGH BLOOD PRESSURE AND PULSE Time Seen by Provider: 12/26/18 20:32 Source: patient and family () History of Present Illness Provider complaint: Dizziness Onset (ago): day(s) Location: head (dizzy) and chest Pain Consistency: + constant Quality: + crushing Associated symptoms: + chest pain, + weakness and + other (Positive: blurry vision, dizziness, increased pulse. Negative: congestion, diarrhea, urinary symptoms); no cough and no fever/chills (fever) The patient is a 78 year old male who presents to the ED with complaints of constant dizziness that started today. The patient reports he was outside doing work and his vision was blurry when he went back inside. He states he was diagnosed with atrial fibrillation in August and got shocked. The patient notes the atrial fibrillation went away for a month but came back. He states he got shocked again 2 weeks ago. The patient reports he has chest pain and weakness that started today. The states the patients pulse has been increasing all day. The patient denies fever, cough, congestion, diarrhea, or urinary symptoms. Home Medications Home Medications Medication Instructions Recorded Confirmed Type latanoprost 1 drp OPB HS 06/28/18 12/26/18 History metformin 500 mg PO BID 06/28/18 12/26/18 History timolol maleate 1 drp OPB QAM 06/28/18 12/26/18 History carvedilol 25 mg PO BID 08/26/18 12/26/18 History amiodarone 200 mg tablet 200 mg PO BID #60 tab 11/30/18 12/26/18 Rx apixaban 5 mg tablet 5 mg PO BID 12/02/18 12/26/18 History aspirin [Aspirin Low Dose] 81 mg PO QAM 12/11/18 12/26/18 History atorvastatin 40 mg tablet 40 mg PO HS #90 tab 12/17/18 12/26/18 Rx bupropion HCl 150 mg PO QPM 12/26/18 12/26/18 History Allergies Allergy/AdvReac Type Severity Reaction Status Date / Time meperidine Allergy Mild OVER-SEDATION, Verified 12/26/18 21:13 N/V W/ SYNCOPE Past Med/Surg History Medical History Obstructive sleep apnea Memory impairment Diabetes mellitus Antithrombin III deficiency (Chronic) Atrial fibrillation persistent Depression Glaucoma LEFT EYE High cholesterol History of hypertension CURRENTLY NOT TAKING MEDS - BP HAS BEEN LOW History of skin cancer MELANOMA AND BASAL CELL Hx of deep venous thrombosis Hx pulmonary embolism Surgical History History of local excision of skin lesion MULTIPLE REMOVAL No history of previous surgery NONE THAT WOULD HAVE TAKEN PT TO OR - ONLY OFFICE FOR REMOVAL SKIN CANCERS Family History Mother Cancer Venous embolism and thrombosis of deep vessels of lower extremity Father Stroke syndrome Social History Preferred Language: Tanzanian Communication Ability: Effective Battery Repairer Required: No Beliefs That Will Affect Care: Orthodoxy Orthodoxy Beliefs: Jehovah witness Current Living Situation: Spouse Feels Safe at Home: Yes Smoking Status: Never smoker Second Hand Exposure: No ; Hx Alcohol Use: No Hx Substance Use: No Review of Systems See HPI for pertinent positives & negatives. and A total of 10 systems reviewed and were otherwise negative Physical Exam Vital Signs Vital Signs - 24 hr 12/26/18 20:28 12/26/18 21:08 12/26/18 21:30 Temperature 36.6 C Temperature Source Oral Sepsis Recent Fever Within 48 Hours No Sepsis Action Taken by Nursing No Action Required Pulse Rate 122 H 105 H 94 H Pulse Rate from SpO2 Sensor Respiratory Rate 20 22 20 Respiratory Effort / Characteristics Non-Labored Spontaneous Respiratory Depth Normal Blood Pressure 176/110 H 171/114 H 152/103 H Blood Pressure Mean 132 133 119 Blood Pressure Position Sitting Pulse Oximetry 96 Oxygen Delivery Method Room Air 12/26/18 22:00 12/26/18 22:30 12/26/18 23:29 Temperature Temperature Source Sepsis Recent Fever Within 48 Hours Sepsis Action Taken by Nursing Pulse Rate 86 104 H 100 H Pulse Rate from SpO2 Sensor 98 H Respiratory Rate 18 17 23 Respiratory Effort / Characteristics Respiratory Depth Blood Pressure 171/99 H 168/112 H 167/111 H Blood Pressure Mean 123 130 129 Blood Pressure Position Pulse Oximetry 96 Oxygen Delivery Method 12/26/18 23:30 Temperature Temperature Source Sepsis Recent Fever Within 48 Hours Sepsis Action Taken by Nursing Pulse Rate 118 H Pulse Rate from SpO2 Sensor 113 H Respiratory Rate 23 Respiratory Effort / Characteristics Respiratory Depth Blood Pressure 171/108 H Blood Pressure Mean 129 Blood Pressure Position Pulse Oximetry 96 Oxygen Delivery Method GENERAL: Awake, alert, fatigue-appearing, in no distress HENT: Normocephalic, atraumatic. Oropharynx with dry mucous membranes and otherwise unremarkable. EYES: Normal conjunctiva. Sclera non-icteric. EOMI. No nystamgus. PEARRL. NECK: Supple. No nuchal rigidity. FROM. No JVD. RESPIRATORY: CTAB CARDIAC: Tachycardic rate, irregular rhythm. Extremities warm and well perfused. Pulses equal. ABDOMEN: Soft, non-distended. No tenderness to palpation. No rebound or guarding. No masses. RECTAL: Deferred. MUSCULOSKELETAL: Chest examination reveals no tenderness. The back is symmetrical on inspection without obvious abnormality. There is no CVA tenderness to palpation. No joint edema. LOWER EXTREMITIES: Calves are equal size bilaterally and non-tender. No edema. No discoloration. NEURO: Normal sensorium. No sensory or motor deficits noted. Intact finger to nose. 5/5 strength and SILT x4 extremities. SKIN: No rash or jaundice noted. Course 2039: The patient was evaluated in room A9B. A complete history and physical exam was performed. 2307: I checked on the patient. He is feeling better but still feels weak and dizzy. The patient will be evaluated for further management. I discussed laboratory and radiographic results with him. The patient verbalized agreement of the treatment plan. The patient will be evaluated for further management and care. 2343: I discussed the patients case with Dr. Park [facility] Hospitalist. He will evaluate the patient for further management. 2354: I discussed the patients case with Dr. Park [facility] Hospitalist. Consultations Consultation #1: I discussed the patients case with Dr. Park [facility] Hospitalist. He will evaluate the patient for further management. Time: 23:43 Consultation #2: I discussed the patients case with Dr. Park [facility] Deeptiis t. Time: 23:54 Administered Medications Discontinued Medications Amiodarone HCl (Cordarone) 200 mg PO NOW ONE Stop: 12/26/18 23:34 Last Admin: 12/27/18 00:05 Dose: 200 mg Documented by: [id number] Carvedilol (Coreg) 25 mg PO NOW ONE Stop: 12/26/18 23:34 Last Admin: 12/27/18 00:05 Dose: 25 mg Documented by: [id number] Sodium Chloride (Nss) 500 mls @ 999 mls/hr IV .Q31M ONE Stop: 12/26/18 21:22 Last Infusion: 12/26/18 21:54 Dose: 0 mls/hr Documented by: [id number] Admin: 12/26/18 21:09 Dose: 999 mls/hr Documented by: [id number] Sodium Chloride (Nss) 500 mls @ 999 mls/hr IV .Q31M ONE Stop: 12/26/18 23:54 Last Infusion: 12/27/18 00:02 Dose: 0 mls/hr Documented by: [id number] Admin: 12/26/18 23:30 Dose: 999 mls/hr Documented by: [id number] Medical Decision Making Differential Diagnosis Differential diagnosis: Etiologies such as benign positional vertigo, labrynthitis, dehydration, hypovolemia, anemia, tumor, infection, hypoglycemia, electrolyte abnormalities, cardiac sources, toxicological sources, central neurologic process, as well as others were entertained. Medical Records Attestation: I reviewed the patient's medical records. Home Medications Current Medication List: was personally reviewed by me Laboratory Data Attestation: I reviewed the patient's lab results. Result diagrams: 12/26/18 21:06 12/26/18 21:06 Lab Results 12/26/18 12/26/18 12/27/18 Range/Units 21:06 21:06 00:10 WBC 6.43 (4.8-10.8) K/uL RBC 4.70 (4.7-6.1) M/uL Hgb 14.8 (14.0-18.0) g/dL Hct 42.5 (42-52) % MCV 90.4 (80-100) fL MCH 31.5 (25-34) pg MCHC 34.8 (32-36) g/dL RDW Std Deviation 44.6 (36.4-46.3) fL RDW Coeff of Mickey 13.4 (11.5-14.5) % Plt Count 179 (130-400) K/uL MPV 9.5 (7.4-10.4) fL Immature Gran % (Auto) 0.2 % Neut % (Auto) 59.3 % Lymph % (Auto) 28.6 % [place]imer % (Auto) 9.3 % Eos % (Auto) 2.3 % Baso % (Auto) 0.3 % Immature Gran # (Auto) 0.01 (0.00-0.02) K/uL Neut # (Auto) 3.81 (1.4-6.5) K/uL Lymph # (Auto) 1.84 (1.2-3.4) K/uL [place] # (Auto) 0.60 H (0.11-0.59) K/uL Eos # (Auto) 0.15 (0-0.5) K/uL Baso # (Auto) 0.02 (0-0.2) K/uL Sodium 138 (136-145) mmol/L Potassium 4.3 (3.5-5.1) mmol/L Chloride 105 (98-107) mmol/L Carbon Dioxide 26 (21-32) mmol/L Anion Gap 7.0 (3-11) BUN 19 H (7-18) mg/dl Creatinine 1.50 H (0.6-1.4) mg/dl Est Cr Clr Drug Dosing 44.0 ml/min Est GFR ( Amer) 50.6 Est GFR (Non-Af Amer) 43.7 BUN/Creatinine Ratio 12.7 (10-20) Glucose 116 H (70-99) mg/dl Calcium 9.2 (8.5-10.1) mg/dl Phosphorus 3.9 (2.5-4.9) mg/dl Magnesium 2.0 (1.8-2.4) mg/dl Total Bilirubin 0.8 (0.2-1) mg/dl Direct Bilirubin 0.2 (0-0.2) mg/dl AST 21 (15-37) U/L ALT 37 (12-78) U/L Alkaline Phosphatase 141 H (45-117) U/L Troponin I < 0.015 (0-0.045) ng/ml Total Protein 7.4 (6.4-8.2) gm/dl Albumin 3.7 (3.4-5.0) gm/dl Globulin 3.7 (2.5-4.0) gm/dl Albumin/Globulin Ratio 1.0 (0.9-2) Lipase 129 (73-393) U/L TSH 4.600 H (0.300-4.500) uIu/ml Free T4 1.22 (0.8-1.6) ng/dl Urine Color Yellow Urine Appearance Clear (Clear) Urine pH 5.0 (4.5-7.5) Ur Specific [place] 1.015 (1.000-1.030) Urine Protein Negative (Negative) Urine Glucose (UA) Negative (Negative) Urine Ketones Negative (Negative) Urine Blood Negative (Negative) Urine Nitrite Negative (Negative) Urine Bilirubin Negative (Negative) Urine Urobilinogen Negative (Negative) Ur Leukocyte Esterase Negative (Negative) Imaging Data Radiologist's Impression: Radiology results as stated below per my review and th e radiologist's interpretation: XR chest 1V portable HISTORY: 78 years-old Male Chest Pain acute atypical chest pain COMPARISON: Chest radiograph 09/28/2018 TECHNIQUE: Portable AP view of the chest FINDINGS: Cardiac silhouette is enlarged, unchanged. Calcification of the thoracic aortic arch. Mild chronic interstitial coarsening without pneumothorax, pleural effusion or overt pulmonary edema. Degenerative changes of the shoulders and spine. IMPRESSION: Cardiomegaly without acute process. The above report was generated using voice recognition software. It may contain grammatical, syntax or spelling errors. Electronically signed by: Russell Larios M.D. 12/26/2018 9:16 PM ECG Data Attestation: I personally reviewed and interpreted this ECG as follows: Indication: weakness Rate (beats per minute): 104 Rhythm: atrial fibrillation (with RVR) Findings: + other (Normal axis ); no acute ischemic change Blood Pressure Blood Pressure Findings: Elevated blood pressure Blood Pressure Disposition: further management by hospitalist ARTI Narrative The patient is a pleasant 78-year-old gentleman with a past medical history of A. fib on Eliquis, history of anti-thrombin 3 deficiency, diabetes, sleep apnea, hypertension who presents emergency department with generalized weakness and dizziness which began today in the setting of working outside in his yard in the heat with poor oral intake per hpi. On arrival the patient is fatigued appearing but in NAD, AF, HR 100s and hypertensive 170s/110s and otherwise VSS. Patient appears clinically dry. He has not focal neuro deficits. EKG demonstrates A. fib without overt acute ischemia. Chest x-ray negative for acute process. WBC, H/H and platelets within normal limits. Chemistry without acidosis. Creatinine slightly elevated from recent at 1.5 with BUN of 19 consistent with the patient's clinically dry appearance. Troponin negative. LFTs and electrolytes otherwise unremarkable. UA negative for infection. Patient was feeling some improvement after IV fluid hydration with heart rate improved to the 80s however then slowly would began to rise again to the 100s. While the patient felt improved he reports he still does not feel well and therefore we agreed to proce ed with admission given mild IVETT in this elderly patient. Case was discussed with Dr. Park, [facility] hospitalist, who will evaluate the patient for admission. Impression & Plan Dehydration, Atrial fibrillation Discharge Plan Visit Data Chief Complaint: Dizziness Stated Complaint: LIGHTHEADED,HIGH BLOOD PRESSURE AND PULSE ED Provider: Dequan Gamboa Discharge Problem: Dehydration, Atrial fibrillation Patient Disposition: Being Evaluated by Hospitalist Discharge Instructions Interventions: ED Discharge Assessment Last Done: 12/27/18 01:22 Discharge Problem: Atrial fibrillation Qualifiers: Atrial fibrillation type: chronic Qualified Code(s): I48.2 - Chronic atrial fibrillation The scribe's documentation has been prepared under my direction and personally reviewed by me in its entirety. I confirm that the note above accurately reflects all work, treatment, procedures, and medical decision making performed by me.
[2018-12-27] MEDS: SODIUM CHLORIDE 0.9% 1000ML 1,000 ML IV SCH ×2 (02:00→14:14)
[2018-12-27] MEDS: CARVEDILOL 25 MG TAB PO SCH ×2 (08:37→20:55)
[2018-12-27] MEDS: TIMOLOL MALEATE 0.25% OP SOLN 5 ML BTL OPB SCH (08:38)
[2018-12-27] MEDS: APIXABAN 5 MG TABLET PO SCH ×2 (08:38→20:54)
[2018-12-27] MEDS: ASPIRIN 81 MG ECTAB PO SCH (08:38)
[2018-12-27] MEDS: AMIODARONE 200 MG TAB PO SCH ×2 (08:38→20:54)
[2018-12-27 10:45] LABS: Hematocrit (blood only) 38.3 % (42-52); Mean Corpuscular Hemoglobin 30.6 pg (25-34); Mean Corpuscular Hgb Conc 33.9 g/dL (32-36); Mean Corpuscular Volume 90.1 fL (80-100); Mean Platelet Volume 8.9 fL (7.4-10.4); Platelet Count 149 K/uL (130-400); RDW Coefficient of Variation 13.8 % (11.5-14.5); RDW Standard Deviation 45.4 fL (36.4-46.3); Red Blood Count 4.25 M/uL (4.7-6.1); White Blood Count 4.77 K/uL (4.8-10.8)
[2018-12-27 11:17] LABS: BUN Creatinine Ratio 12.1 (10-20); Calcium 8.1 mg/dl (8.5-10.1); Creatinine Clr Calc Pharmacy 51.3 ml/min; Est GFR (African American) 60.7; Est GFR (Non-African American) 52.4
[2018-12-27 11:43] LABS: Potassium 4.4 mmol/L (3.5-5.1)
[2018-12-27 11:45] LABS: Magnesium 1.9 mg/dl (1.8-2.4)
--- NOTE | 2018-12-27 13:34 | Consultation Report ---
DATE OF CONSULTATION: 12/27/2018 REQUESTING: Bernabe Park MD ROLL PLUGGER MACHINE OPERATOR: Jed Rahman DO, [facility] Cardiology for Dr. Daniel Mas who is the patient's primary director institution. REASON FOR CONSULTATION: Recurrent symptomatic atrial fibrillation. HISTORY OF PRESENT ILLNESS: Saira was admitted to the hospital with recurrent symptomatic atrial fibrillation. He felt well yesterday morning when he awoke, he was working outside, planting some shrubs and he had a sudden onset of very light palpitations. His symptoms are mostly shortness of breath, dyspnea and fatigue, which he had. He did not convert back to sinus rhythm and came to the Emergency Room because he was not feeling well. He has had atrial fibrillation since June of 2018 where he underwent cardioversion in June. He was reevaluated in September of 2017 and eventually was placed on amiodarone with plans for cardioversion in November. In December 14, he underwent cardioversion by Dr. Mas with faith of sinus rhythm. Unfortunately, even with amiodarone. He has not been able to maintain sinus rhythm. He denies any chest pain, chest pressure, chest heaviness. He does have weakness when he is in AFib. Denies any presyncope, syncope, lower extremity edema, symptoms of claudication. Denies any bleeding, bruising, dark stools, black stools on Eliquis. His appetite is stable. His weight is stable. His notes that he has had progressive depression, given all of his hospitalizations and the fact that when he is in AFib, he feels so poorly. He carries a diagnosis of sleep apnea, but is intolerant to the full face mask, but never tried nasal pillows. It does not sound like outside of sleep apnea that he has any specific triggers for his atrial fibrillation. The rest of a complete review of systems is otherwise negative. PAST MEDICAL HISTORY: 1. Symptomatic paroxysmal atrial fibrillation with cardioversions in June and November 2018. 2. Chronic amiodarone use in anticipation of his November 2018 cardioversion. 3. Chronic anticoagulation with Eliquis. 4. Moderate left ventricular hypertrophy with preserved left ventricular systolic function and a small LV cavity and likely associated diastolic dysfunction. 5. Vertigo in the ER yesterday. 6. Diabetes mellitus type 2. 7. Hyperlipidemia. 8. History of prostate cancer. 9. History of DVT and pulmonary embolism. SOCIAL HISTORY: He is . He denies any alcohol or smoking. 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 FAMILY HISTORY: Mother of cancer. Father of an aneurysm and stroke. ALLERGIES: MEPERIDINE. MEDICATIONS: Reviewed in electronic medical record. PHYSICAL EXAMINATION: GENERAL: He is awake, alert and oriented x3. He does appear depressed. VITAL SIGNS: His heart rate is 89, blood pressure 137/81, respirations 18, temperature 36.5, sats 93%. HEENT: 2+ carotid upstrokes, no evidence of carotid bruits. Jugular venous pressure appeared normal. Sclerae is anicteric. His hearing is normal. LUNGS: Clear to auscultation bilaterally. No rales, rhonchi or wheezing. HEART: Regular rate and rhythm. No appreciable murmurs, rubs or gallops. ABDOMEN: Soft, nontender, nondistended. Positive bowel sounds. EXTREMITIES: No clubbing, cyanosis or edema. PSYCHIATRIC: He appears depressed. NEUROLOGIC: He is awake, alert and oriented x3. DIAGNOSTIC STUDIES: Echocardiogram 06/2018, normal left ventricular systolic function, EF 65-70%, moderate concentric left ventricular hypertrophy, normal RV size and function, mild left atrial enlargement, no significant valvular heart disease. IMPRESSION: 1. Symptomatic paroxysmal atrial fibrillation. 2. Chronic anticoagulation with apixaban. 3. Untreated sleep apnea. 4. Preserved left ventricular systolic function with a small cavity, moderate left ventricular hypertrophy and diastolic dysfunction. As I discussed with the patient and his , in all likelihood if we do not treat his sleep apnea, he is not going to maintain sinus rhythm even with amiodarone. Given the fact he feels poorly, we can contemplate cardioversion tomorrow with anesthesia. Additionally, he will need to contact his DME provider to see if they can provide him with nasal pillows to see if he would tolerate this to treat his sleep apnea. If he continues to fail antiarrhythmic therapy at that point as I discussed with him an AFib ablation is a possibility, although he did not seem in through all proceeding with AFib ablation. I did discuss when the success rate is 70% at a year, although half of those individuals are still on some antiarrhythmic therapy. We will make him n.p.o. after midnight and plan for cardioversion tomorrow.
--- NOTE | 2018-12-27 14:19 | Magnetic Resonance Report ---
MR brain wo con HISTORY: 78 years-old Male CVA acute dizziness with lightheadedness and blurry vision. History of pr ostate cancer and melanoma COMPARISON: Head CT 06/28/2018 TECHNIQUE: Multiplanar multisequence MRI of the brain was obtained without the use of IV contrast. FINDINGS: Large field of view hydrogenation operator localizer images demonstrate no gross extracranial abnormality. There is no restricted diffusion to suggest acute or subacute infarction. Degenerative changes of the imaged cer vical spine. Midline structures including the corpus callosum, brainstem, optic chiasm, pituitary and pineal glands appear unremarkable the sagittal T1 series. No cerebellar tonsillar herniation. There is no acute intracranial hemorrhage, midline shift, abnormal extra axial collection, hydrocephalus or intracranial mass. Mild age-related involutional changes. Moderate patchy T2/FLAIR hyperintensities about the white matter are suggestive of chronic microvascular ischemic disease. Major flow voids at the level of the skull base appear patent. Mastoid air cells are clear. Mild muco chacorta thickening of the ethmoid air cells and nasal turbinates. Mild leftward spurring of the nasal sep yi. Skull, orbits and soft tissues are within normal limits. IMPRESSION: 1. No acute intracranial abnormality. 2. 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 The above report was generated using voice recognition software. It may contain grammatical, syntax o r spelling errors. Electronically signed by: Russell Larios M.D. 12/27/2018 2:18 PM
--- NOTE | 2018-12-27 15:03 | Anesthesiology Consultation ---
Date of Service December 27, 2018 Propofol 40mg for previous cardioversion on 12/11. Assessment & Plan (1) Encounter for pre-operative examination: Chart Review Chart Review: Acceptable Risk for Surgery and Patient NOT seen in Pre Admission Testing Consults Requested none History Height/Weight Height: 5 ft 8 in Weight: 92.5 kg Allergies Allergy/AdvReac Type Severity Reaction Status Date / Time meperidine Allergy Mild OVER-SEDATION, Verified 12/26/18 21:13 N/V W/ SYNCOPE Medications Home Medications Medication Instructions Recorded Confirmed Last Taken latanoprost 1 drp OPB HS 06/28/18 12/26/18 08/25/18 metformin 500 mg PO BID 06/28/18 12/26/18 12/26/18 09:00 timolol maleate 1 drp OPB QAM 06/28/18 12/26/18 12/26/18 carvedilol 25 mg PO BID 08/26/18 12/26/18 12/26/18 09:00 amiodarone 200 mg tablet 200 mg PO BID #60 tab 11/30/18 12/26/18 12/26/18 09:00 apixaban 5 mg tablet 5 mg PO BID 12/02/18 12/26/18 12/26/18 09:00 aspirin [Aspirin Low Dose] 81 mg PO QAM 12/11/18 12/26/18 12/26/18 09:00 atorvastatin 40 mg tablet 40 mg PO HS #90 tab 12/17/18 12/26/18 Unknown bupropion HCl 150 mg PO QPM 12/26/18 12/26/18 Unknown Active Medications Generic Name Dose Route Start Last Admin Trade Name Wisamq PRN Reason Stop Dose Admin Amiodarone HCl 200 mg 12/27/18 09:00 12/27/18 08:38 Cordarone PO 01/26/19 08:59 200 mg BID AILEEN Administration Apixaban 5 mg 12/27/18 09:00 12/27/18 08:38 Eliquis PO 01/26/19 08:59 5 mg BID AILEEN Administration Aspirin 81 mg 12/27/18 09:00 12/27/18 08:38 Ecotrin Ectab PO 01/26/19 08:59 81 mg QAM AILEEN Administration Carvedilol 25 mg 12/27/18 09:00 12/27/18 08:37 Coreg PO 01/26/19 08:59 25 mg BID AILEEN Administration Sodium Chloride 1,000 mls @ 80 mls/hr 12/27/18 01:40 12/27/18 14:14 Nss 1000ml IV 01/26/19 01:39 80 mls/hr .[id number] AILEEN Administration Timolol Maleate 1 drops 12/27/18 09:00 12/27/18 08:38 Timoptic 0.25% Oph OPB 01/26/19 08:59 1 drops QAM AILEEN Administration Past Medical History Medical History Obstructive sleep apnea Memory impairment Diabetes mellitus Antithrombin III deficiency (Chronic) Atrial fibrillation persistent Depression Glaucoma LEFT EYE High cholesterol History of hypertension CURRENTLY NOT TAKING MEDS - BP HAS BEEN LOW History of skin cancer MELANOMA AND BASAL CELL Hx of deep venous thrombosis Hx pulmonary embolism Past Family History Family History Mother Cancer Venous embolism and thrombosis of deep vessels of lower extremity Father Stroke syndrome Past Surgical History Surgical History History of local excision of skin lesion MULTIPLE REMOVAL No history of previous surgery NONE THAT WOULD HAVE TAKEN PT TO OR - ONLY OFFICE FOR REMOVAL SKIN CANCERS Social History Smoking Status: Never smoker Hx Alcohol Use: No Hx Substance Use: No substance use type: does not use Physical Exam Vital Signs Last Vital Signs Temp 36.4 C L 12/27/18 11:00 Pulse 97 H 12/27/18 11:00 Resp 18 12/27/18 11:00 BP 120/84 12/27/18 11:00 Pulse Ox 91 12/27/18 11:00 Testing Laboratory Results 12/27/18 10:26 12/27/18 11:21 Urine Color Yellow 12/27/18 00:10 Urine Appearance Clear (Clear) 12/27/18 00:10 Urine pH 5.0 (4.5-7.5) 12/27/18 00:10 Ur Specific Collins 1.015 (1.000-1.030) 12/27/18 00:10 Urine Protein Negative (Negative) 12/27/18 00:10 Urine Glucose (UA) Negative (Negative) 12/27/18 00:10 Urine Ketones Negative (Negative) 12/27/18 00:10 Urine Nitrite Negative (Negative) 12/27/18 00:10 Ur Leukocyte Esterase Negative (Negative) 12/27/18 00:10 Electrocardiogram Date: 12/26/18 Findings: + AFIB @ Echocardiogram Date: 06/29/18 EF: 60 LV Function: normal Other Findings: + LVH
--- NOTE | 2018-12-27 16:05 | Communication Note ---
Date of Service: December 27, 2018 Pt. is doing well overall -- dizziness is improving, only occurs with movement. Denies chest pain or palpitations. Is SOB with exertion. Cardiology following, plan for cardioversion tomorrow. The pt. is also aware that he will need a nasal pillow for CPAP use; has not been able to tolerate the mask in the past. MRI of brain was negative; no further work up for CVA symptoms. Changed to full admit. Monitor AM labs and NPO after midnight for procedure.
[2018-12-27] MEDS: LATANOPROST 0.005% OP SOLN 2.5 ML BTL OPB SCH (20:53)
[2018-12-27] MEDS: ATORVASTATIN 40 MG TAB PO SCH (20:54)
[2018-12-27] MEDS: BuPROPion XL 150 MG TABCR PO SCH (20:55)
[2018-12-28] MEDS: SODIUM CHLORIDE 0.9% 1000ML 1,000 ML IV SCH ×2 (02:30→14:17)
[2018-12-28 06:16] LABS: Hematocrit (blood only) 38.8 % (42-52); Hemoglobin 13.1 g/dL (14.0-18.0); Mean Corpuscular Hemoglobin 30.5 pg (25-34); Mean Corpuscular Hgb Conc 33.8 g/dL (32-36); Mean Corpuscular Volume 90.2 fL (80-100); Mean Platelet Volume 9.2 fL (7.4-10.4); Platelet Count 140 K/uL (130-400); RDW Coefficient of Variation 13.7 % (11.5-14.5); RDW Standard Deviation 45.3 fL (36.4-46.3); White Blood Count 5.39 K/uL (4.8-10.8)
[2018-12-28 06:51] LABS: BUN Creatinine Ratio 13.8 (10-20); Calcium 8.1 mg/dl (8.5-10.1); Creatinine Clr Calc Pharmacy 51.3 ml/min; Est GFR (African American) 60.7; Est GFR (Non-African American) 52.4; Potassium 4.4 mmol/L (3.5-5.1)
[2018-12-28] MEDS: CARVEDILOL 25 MG TAB PO SCH ×2 (07:19→20:24)
[2018-12-28] MEDS: ASPIRIN 81 MG ECTAB PO SCH (07:20)
[2018-12-28] MEDS: AMIODARONE 200 MG TAB PO SCH ×2 (07:21→20:24)
[2018-12-28] MEDS: APIXABAN 5 MG TABLET PO SCH ×2 (07:21→20:24)
[2018-12-28] MEDS: TIMOLOL MALEATE 0.25% OP SOLN 5 ML BTL OPB SCH (07:22)
[2018-12-28] MEDS ORDERED: LIDOCAINE HCL 2% MPF (LOCAL) 5 ML VIAL INFIL ONE (09:26)
[2018-12-28] MEDS ORDERED: PROPOFOL IV EMULSION 10 MG/ML 20 ML VIAL IV ONE (09:26)
--- NOTE | 2018-12-28 09:59 | Procedure Note ---
Procedure Note Date of Service December 28, 2018 Note Procedure performed: Cardioversion Indication: Atrial fibrillation Staff remote control mirror installer: Daniel Preciado MD Procedure in detail: The patient was informed of the risks benefits and alternatives to the intended procedure. He understood such which proceed. He was taken to the cardiac catheterization suite holding area. A general anesthetic was administered by the Anesthesiology Service. Once appropriately anesthetized, the patient was cardioverted using 200 joules delivered in a biphasic fashion. This returned the patient to sinus rhythm. The patient tolerated procedure well, there were no immediate complications. Patient was neurologically intact subsequent to the procedure. Impression: Successful cardioversion from atrial fibrillation to normal sinus rhythm Coding
--- NOTE | 2018-12-28 10:25 | Anesthesiology Progress Note ---
Date of Service December 28, 2018 Anesthesia Post Procedure Vital Signs Vital Signs: Temp Pulse Pulse Resp BP Pulse Ox 12/28/18 07:39 36.5 C 95 H 18 150/83 H 94 12/28/18 03:25 36.6 C 66 17 147/81 H 95 12/27/18 23:50 98 H 12/27/18 23:49 36.7 C 80 18 160/88 H 94 12/27/18 19:19 36.7 C 111 H 18 163/100 H 93 12/27/18 15:36 36.7 C 93 H 18 128/86 94 12/27/18 11:00 36.4 C L 97 H 18 120/84 91 Transfer of Care Handoff Completed per policy Notes Mental Status: alert / awake / arousable and participated in evaluation Nausea / Vomiting: adequately controlled Pain: adequately controlled Airway Patency, RR, SpO2: stable & adequate BP & HR: stable & adequate Hydration State: stable & adequate Anesthetic Complications: no major complications apparent and Pt Satisfied with anesthetic care
[2018-12-28] MEDS ORDERED: POLYETHYLENE (MIRALAX) 17 GM PACK PO ONE (12:55)
--- NOTE | 2018-12-28 18:21 | Hospitalist Progress Note ---
Date of Service December 28, 2018 Assessment & Plan (1) Atrial fibrillation: Cardioverted today with Dr. Preciado and has remained in SB since then. Continue Cardizem, amiodarone and Eliquis (2) Dizziness: no further dizziness/vertigo but patient still feels unwell with generalized weakness and some inability to follow commands. MRI / without acute process. See below (3) Weakness: May be secondary to anesthesia for cardioversion Will have PT/OT evaluate in the morning. (4) HTN (hypertension), benign: Continue Cardizem (5) Diabetes mellitus type 2 in obese: SS, bsgs ac & hs (6) Hyperlipidemia: continue statin (7) Obstructive sleep apnea: cpap CM helping to obtain nasal pillow for patient as he can't tolerate mask Discussed importance of using cpap to try to prevent another A.fib relapse Supervising Physician Co-Signing Physician Notes I supervised Sally Corcoran NP on this patient's care. I discussed the plan of care with her with the plan being as written in her note except for any following changes/exceptions: None. Subjective Patient continues to feel unstable on his feet. His reports some instances where he appears to need extra coaxing to follow commands. He is appropriate in conversation but is very anxious. He does report quite a bit of anxiety since initially being diagnosed with A.fib Review of Systems Review of Systems: All systems reviewed & are unremarkable except as noted in HPI & below Physical Exam Physical Exam: General: no distress Eyes: normal inspection, PERLL Respiratory: chest non tender, clear to auscultation, normal breath sounds, no respiratory distress, no accessory muscle use Cardiac: regular rate and rhythm, no rub or gallop, no murmur, no edema, no jvd GI/: active bowel sounds, no abd pain or tenderness, soft, non distended Extremities: normal range of motion, bilateral weakness in all extremities non tender, Neuro/Psych: alert and oriented x 3, normal mood and affect, CN II - XII intact Skin: normal color, dry Results & Data Vital Signs (Past 12 Hours) Vital Signs Temp Pulse Resp BP Pulse Ox 12/28/18 16:48 36.6 C 63 18 108/67 95 12/28/18 15:22 36.6 C 57 L 18 136/81 95 12/28/18 11:07 50 L 18 95 12/28/18 11:04 36.4 C L 50 L 18 108/67 94 12/28/18 10:36 36.4 C L 50 L 18 104/64 12/28/18 10:34 36.4 C L 50 L 18 99/64 L 94 12/28/18 07:39 36.5 C 95 H 18 150/83 H 94 PG Care Time/CCT Total # of Minutes Spent Total Time Spent with Patient: Total time spent is greater than 50% in coordination of care (as documented) at patient's floor/unit and/or counseling patient: (1) Atrial fibrillation Atrial fibrillation type: chronic Qualified Code(s): I48.2 - Chronic atrial fibrillation
[2018-12-28] MEDS ORDERED: LORazepam 0.5 MG TAB PO PRN (18:22)
[2018-12-28] MEDS: ATORVASTATIN 40 MG TAB PO SCH (20:24)
[2018-12-28] MEDS: BuPROPion XL 150 MG TABCR PO SCH (20:24)
[2018-12-28] MEDS: LATANOPROST 0.005% OP SOLN 2.5 ML BTL OPB SCH (20:24)
[2018-12-29] MEDS: AMIODARONE 200 MG TAB PO SCH (07:24)
[2018-12-29] MEDS: CARVEDILOL 25 MG TAB PO SCH (07:25)
[2018-12-29] MEDS: APIXABAN 5 MG TABLET PO SCH (07:25)
[2018-12-29] MEDS: TIMOLOL MALEATE 0.25% OP SOLN 5 ML BTL OPB SCH (07:26)
[2018-12-29] MEDS: ASPIRIN 81 MG ECTAB PO SCH (07:26)
[2018-12-29 08:09] LABS: Hemoglobin 12.9 g/dL (14.0-18.0); Mean Corpuscular Hemoglobin 30.6 pg (25-34); Mean Corpuscular Hgb Conc 33.9 g/dL (32-36); Mean Corpuscular Volume 90.3 fL (80-100); Mean Platelet Volume 9.2 fL (7.4-10.4); Platelet Count 133 K/uL (130-400); RDW Coefficient of Variation 13.7 % (11.5-14.5); RDW Standard Deviation 45.2 fL (36.4-46.3); Red Blood Count 4.21 M/uL (4.7-6.1); White Blood Count 4.79 K/uL (4.8-10.8)
[2018-12-29 08:42] LABS: BUN Creatinine Ratio 15.6 (10-20); Calcium 8.6 mg/dl (8.5-10.1); Creatinine Clr Calc Pharmacy 53.8 ml/min; Est GFR (African American) 63.7; Est GFR (Non-African American) 54.9; Potassium 4.6 mmol/L (3.5-5.1)
--- NOTE | 2018-12-29 11:41 | Discharge Summary ---
Date of Service December 29, 2018 Admission HPI Per Admitting Provider 78 y/o M Hx PAF, HTN, HLD, DM II, prostate CA, glaucoma, DVT/PE. Presents with lightheadedness and weakness. He also states that he had some intermittent upper CP which has resolved. The pt has been admitted for similar symptoms related to AF multiple times this yr. He underwent elective cardioversion 2 weeks prior. Rapid AF was confirmed on arrival to the ER. He had been working in his yard around noon when the symptoms began. He tried to work through them but eventually had to stop. His recorded his HR and BP during the onset of his symptoms. His HR is was reported at 105 and his BP was 93/65. On arrival to the ER his HR was 122. He was assessed as clinically dehydrated and provided with a fluid bolus which did improve his HR somewhat. He had not taken his PM meds which include amiodarone and carvedilol at a relatively high dose. These were also provided in the ER. At the time of admission, the pt's lightheadedness persists. Initial labs show mild IVETT and are otherwise unremarkable. 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 - lives with his Family: Mother due to CA - unspecified Father due to an aneurysm and a CVA Principal Diagnosis A.fib Discharge Exam Constitutional WD/WN, vitals as above Respiratory normal respiratory effort, lungs clear to auscultation Gastrointestinal (Abdomen) Inspection/Auscultation: abdomen normal to inspection and normal bowel sounds; abdomen not distended Musculoskeletal no cyanosis or clubbing, extremities motor strength 5/5 Skin no rashes, warm and dry Neurologic CN's II-XI intact bilaterally, moves all extremities and awake Psychiatric A+Ox3, euthymic affect Discharge Data Allergies Allergy/AdvReac Type Severity Reaction Status Date / Time meperidine Allergy Mild OVER-SEDATION, Verified 12/26/18 21:13 N/V W/ SYNCOPE Consultations 12/26/18 23:24 ED Decision to Admit Stat 12/27/18 01:40 Consult Cardiology Routine 12/27/18 14:09 Consult Anesthesiology Routine Procedures Performed Operation Date: 12/28/18 08:00 Actual Procedures p Cardioversion - Derrick Preciado MD Ordered Studies 12/27/18 01:40 MR brain wo con Routine Hospital Course (1) Atrial fibrillation: Cardioverted 12/[address] Preciado and has remained in SB since then. Will cut carvedilol in half to 12.5 mg until follow up with cardiology as heart rates were running in the 40s and low 50s, continue amiodarone and Eliquis (2) Dizziness: no further dizziness/vertigo. MRI 12/27 without acute process. See below (3) Weakness: Resolved, may have been secondary to anesthesia for cardioversion PT evaluation showed patient at baseline and patient reports he feels well and ready to go home. (4) HTN (hypertension), benign: Continue carvedilol at decreased rate as above Patient's heart rate has been around 50 since his cardioversion. (5) Diabetes mellitus type 2 in obese: SS, bsgs ac & hs inpatient (6) Hyperlipidemia: continue statin (7) Obstructive sleep apnea: Patient will need to be fitted for a nasal pillow. His plans to set this up when they get home. Discussed importance of using cpap to try to prevent another A.fib relapse Total Time Total Time Spent Total Time Spent (In Minutes): greater than 30 minutes Discharge Plan Discharge Items Patient Disposition: Home - Self-Care Reason For Visit: LIGHTHEADED,HIGH BLOOD PRESSURE AND PULSE Discharge Diagnosis: Atrial fibrillation Discharge Goals: Decrease discomfort and Therapeutic intervention Activity: Resume your previous activity Activity Comment: gradually as tolerated Non-emergency contact: Primary Care Provider Call non-emergency contact if: you have any medication questions Follow-up/Referrals: Derrick Mariscal MD [Primary Care Provider] - 01/01/19 3:00 pm (Please, follow up at Dr. Mariscal's office with his construction assistant, Ursula Quijano PA-C, on FridayJanuary 01 at 3:00 pm. PLEASE, CALL [facility] TO SET UP AN APPOINTMENT TO BE FITTED FOR A NEW MASK. THEIR PHONE NUMBER IS [phone]. ) Derrick Mas MD [Physician] - 01/07/19 2:30 pm (Please, follow up at [facility] Cardiology Office with Dr. Uriah Mas' construction assistant, Aman Almeida PA-C, on January 07 at 2:30 pm. *The office is located in [address] of [facility]. This is the big building next to this hospital. If you need to change this appointment, call the office at [phone].) Diet: Carb Consistent or DM2 and Heart Healthy Addtl Provider Instructions: Please see your primary care provider on Friday as above. Please take half of your carvedilol dose - 12.5 mg twice per day until you see Dr. Mas in follow up. Please call your CPAP provider to be fitted for a nasal pillow. As we discussed, managing your sleep apnea will help maintain a normal heart rhythm. Prescriptions: New amiodarone 200 mg Tablet 200 mg PO BID Qty: 60 RF: 1 Continued atorvastatin 40 mg tablet 40 mg PO HS Qty: 90 RF: 1 Eliquis 5 mg tablet 5 mg PO BID RF: 0 latanoprost 0.005 % drops 1 drp OPB HS RF: 0 metformin 500 mg tablet 500 mg PO BID RF: 0 timolol maleate 0.5 % drops 1 drp OPB QAM RF: 0 aspirin [Aspirin Low Dose] 81 mg Tablet,Delayed Release (Dr/Ec) 81 mg PO QAM RF: 0 bupropion HCl 150 mg tablet extended release 24 hr 150 mg PO QPM RF: 0 Changed carvedilol 25 mg Tablet 12.5 mg PO BID Qty: 0 RF: 0 Discontinued amiodarone 200 mg tablet See Rx Instructions .ROUTE .COMPLEX Qty: 60 RF: 4 Stand-Alone Forms: [facility] Discharge Orders: Discharge Order (Routine); Ordered 12/29/18 Ordered By: Sally Corcoran Admission Data Admit Date/Time: 12/27/18 12:12 Attending Provider: Tone Villalba Admit Provider: Bernabe Park Primary Care Provider: Derrick Mariscal Other Providers: Derrick Preciado ; Gutierrez Gregory ; Tone Villalba Service: Telemetry Other Interventions: Discharge Summary Assessment (RN) Last Done: 12/28/18 16:48
--- NOTE | 2019-01-04 06:05 | Coding Query ---
CODING QUERY To promote full compliance with coding requirements relating to patient care, provider participation is requested in all cases of shoelace tipping machine operator uncertainty. Please assist us with the question(s) below: Coding Question(s): Discharge summary makes a note of the patient being admitted with "mild IVETT". Please indicate below if this is of clinical significance and should be coded (ie treated, affected patient care, etc.) Physician's Response(s): ( ) IVETT is a diagnosis of clinical significance and should be coded Please clarify the meaning of IVETT. IVETT is not a valid abbreviation. Thank you. ( ) Acute Kidney Injury ( ) Acute Kidney Insufficiency ( ) Other (Specify): ( x ) IVETT is NOT a diagnosis of clinical significance and should not be coded Thank you Marge Felix Principal Diagnosis: "that condition established after study, to be chiefly responsible for occasioning the admission of the patient to the hospital for care." Co-Existing Principal Diagnosis: "when two or more diagnoses equally meet the criteria for principal diagnosis as determined by the circumstances of admission, diagnostic work up, and/or therapy provided, and the Alphabetic Index, Tabular List, or another coding guideline does not provide sequencing direction, any one of the diagnoses may be sequenced first." "When the physician has documented what appears to be a current diagnosis in the body of the record, but has not included the diagnosis in the final diagnostic statement, the physician should be asked whether the diagnosis should be added." (Source Coding Clinic 2 QTR90. p3-4) JAYLA
== END 2018-12-29 12:46 | disposition home or self-care (01) | DRG 310 ==
LOC: 2S 20:22 → ED 20:22 → SUATTDRO 12-27 01:01 → 2S 12-27 01:22 → SUATTDRO 12-27 12:12

== ENCOUNTER 2020-03-21 06:52 | Observation (INO) ==
--- NOTE | 2020-03-21 07:30 | Emergency Department Note ---
History of Present Illness General Chief complaint: Weakness Stated complaint: CHEST PAIN,ARM TINGLING,WEAK,PAIN IN BACK OF HEAD Time Seen by Provider: 03/21/20 07:01 Source: patient Mode of arrival: ambulatory Limitations: no limitations History of Present Illness Maximum Pain Intensity: 5 This patient is an 79-year-old white male that comes with multiple various complaints. He is here with his . They come in from home. He was restless all night and woke up around 4:00 in the morning felt weak all over after going to the bathroom. He also said he had some chest pain which was right-sided but also radiated to the left. He felt like his left arm was numb than the right. His weakness has been nonfocal. He has had no fall or trauma no fever chills no known exposure to Covid he had no recent illness. He has had no cough he says he feels somewhat short of breath at times otherwise trouble breathing through his nose since having nasal surgery. No known Covid exposure no nausea vomiting diarrhea. No blood or melena stool. He has a mild headache his vision has gotten more blurry although has baseline blurry vision. He feels like is a lump in his anterior throat. No trouble speaking. His vision is blurry in both eyes but has no eye pain. He has both monocular and binocular blurry vision Home Medications Home Medications Medication Instructions Recorded Confirmed Type latanoprost 1 drp OPB 06/28/18 03/21/20 History timolol maleate 1 drp OPB QAM 06/28/18 03/21/20 History aspirin [Aspirin Low Dose] 81 mg PO QAM 12/11/18 03/21/20 History senna 8.6 mg PO BID PRN #20 cap 04/09/19 03/21/20 Rx blood sugar diagnostic #300 ea 08/25/19 01/25/20 Rx blood-glucose meter #1 ea 09/08/19 01/25/20 Rx leuprolide (4 month) 30 mg (4 30 mg IM Q16W #1 ea 10/08/19 03/21/20 Rx month) intramuscular syringe kit carvedilol 12.5 mg tablet 12.5 mg PO BID #60 tab 10/19/19 03/21/20 Rx amiodarone 200 mg tablet 100 mg PO QAM tab 12/21/19 03/21/20 History atorvastatin 40 mg tablet 40 mg PO HS #90 tab 01/25/20 03/21/20 Rx metformin 500 mg tablet 500 mg PO BID #60 tab 02/24/20 03/21/20 Rx mecobalamin (vitamin B12) 1,000 mcg PO QAM 03/21/20 03/21/20 History warfarin 3 mg PO HS 03/21/20 03/21/20 History Allergies Allergy/AdvReac Type Severity Reaction Status Date / Time meperidine Allergy Mild OVER-SEDATION, Verified 03/21/20 07:49 N/V W/ SYNCOPE Past Med/Surg History Medical History Antithrombin III deficiency FOLLOWS PCP > DR. TAN/LOC Atrial fibrillation CARDIOVERSION > [place]> SUMMER 2018 Cellulitis (05/2019) Depression Glaucoma LEFT EYE History of hypertension History of skin cancer MELANOMA AND BASAL CELL Hx of deep venous thrombosis SEVERAL YEARS AGO, ON COUMADIN EVER SINCE. Hx pulmonary embolism WITH DVT Obstructive sleep apnea RECENT DIAGNOSIS, NEEDS TO BE FITTED FOR CPAP. Rib fractures L SIDE /2 MECHANICAL FALL 03/2019. PT DENIES ANY RIB PAIN NOW. Skin lesion ON L ANKLE, DERMATOLOGY DID BIOPSY 06/21, ON ABX. PT TO LET SURGEON KNOW ABOUT RESULTS. Surgical History History of cardioversion (11/2018) History of local excision of skin lesion MULTIPLE REMOVAL Hx of colonoscopy Family History Mother Cancer Venous embolism and thrombosis of deep vessels of lower extremity Father Stroke syndrome Other No family history of bleeding disorder No pertinent family history Denies family history of Alzheimer disease Bipolar disorder Breast cancer COPD (chronic obstructive pulmonary disease) Asthma Social History Smoking Status: Never smoker Second Hand Exposure: No; Do You Dip or Chew Tobacco: No; Tobacco Cessation Education Requested by Patient: No Hx Alcohol Use: No Hx Substance Use: No Preferred Language: Frisian Communication Ability: Effective Visual Impairment: No Limitations Hearing Ability: Normal Cosmetics Supervisor Required: No Beliefs That Will Affect Care: Yazidi Yazidi Beliefs: no blood products, Jehovah Witness marital status: Current Living Situation: Spouse current occupational status: retired current occupation: Worked at [employer] How many Children do You have: 2 Other Information That Helps Us Care for You: No Feels Safe at Home: Yes Safety Concerns: Feels Safe At This Time Childhood Exposure to Second-Hand Smoke: No caffeine: No during the past year weight has: remained stable Dental Care, Regularly: Yes Physical Activity Frequency: Does not Exercise Seatbelt Use: always Sunscreen Use: No Assistive Devices: Glasses Review of Systems A total of 10 systems reviewed and were otherwise negative Physical Exam Vital Signs Vital Signs - 24 hr 03/21/20 06:57 03/21/20 07:30 03/21/20 07:47 Temperature 36.9 C Temperature Source Oral Pulse Rate 59 L 54 L 54 L Pulse Rate from SpO2 Sensor 54 L 54 L Pulse Rhythm Regular Respiratory Rate 20 20 22 Respiratory Effort / Characteristics Non-Labored Respiratory Depth Normal Blood Pressure 206/73 H 137/77 139/73 Blood Pressure Mean 117 97 89 Blood Pressure Position Sitting Pulse Oximetry 97 94 95 Oxygen Delivery Method Room Air Room Air Sepsis Recent Fever Within 48 Hours No Sepsis New/Unexplained Change in Mental Status N/A Sepsis Action Taken by Nursing No Action Required 03/21/20 08:00 03/21/20 08:18 03/21/20 08:32 Temperature Temperature Source Pulse Rate 54 L 54 L 57 L Pulse Rate from SpO2 Sensor 54 L 54 L 57 L Pulse Rhythm Respiratory Rate 20 22 15 Respiratory Effort / Characteristics Respiratory Depth Blood Pressure 151/86 H 151/86 H Blood Pressure Mean 107 112 Blood Pressure Position Pulse Oximetry 95 94 95 Oxygen Delivery Method Sepsis Recent Fever Within 48 Hours Sepsis New/Unexplained Change in Mental Status Sepsis Action Taken by Nursing 03/21/20 09:00 03/21/20 09:30 03/21/20 10:17 Temperature Temperature Source Pulse Rate 54 L 55 L 62 Pulse Rate from SpO2 Sensor 54 L 55 L 62 Pulse Rhythm Respiratory Rate 18 22 17 Respiratory Effort / Characteristics Respiratory Depth Blood Pressure 132/80 141/88 H Blood Pressure Mean 107 105 Blood Pressure Position Pulse Oximetry 94 94 95 Oxygen Delivery Method Sepsis Recent Fever Within 48 Hours Sepsis New/Unexplained Change in Mental Status Sepsis Action Taken by Nursing 03/21/20 10:18 03/21/20 10:30 03/21/20 11:00 Temperature Temperature Source Pulse Rate 60 55 L 55 L Pulse Rate from SpO2 Sensor 60 55 L 55 L Pulse Rhythm Respiratory Rate 19 16 17 Respiratory Effort / Characteristics Respiratory Depth Blood Pressure 173/85 H 149/83 H 159/89 H Blood Pressure Mean 124 119 127 Blood Pressure Position Pulse Oximetry 95 94 95 Oxygen Delivery Method Room Air Sepsis Recent Fever Within 48 Hours Sepsis New/Unexplained Change in Mental Status Sepsis Action Taken by Nursing 03/21/20 11:30 03/21/20 11:31 03/21/20 11:32 Temperature Temperature Source Pulse Rate 57 L 56 L 57 L Pulse Rate from SpO2 Sensor 57 L 57 L 57 L Pulse Rhythm Respiratory Rate 14 20 19 Respiratory Effort / Characteristics Respiratory Depth Blood Pressure 199/91 H Blood Pressure Mean 100 Blood Pressure Position Pulse Oximetry 95 97 96 Oxygen Delivery Method Sepsis Recent Fever Within 48 Hours Sepsis New/Unexplained Change in Mental Status Sepsis Action Taken by Nursing 03/21/20 12:00 Temperature Temperature Source Pulse Rate 63 Pulse Rate from SpO2 Sensor 63 Pulse Rhythm Respiratory Rate 22 Respiratory Effort / Characteristics Respiratory Depth Blood Pressure 221/114 H Blood Pressure Mean 145 Blood Pressure Position Pulse Oximetry 96 Oxygen Delivery Method Sepsis Recent Fever Within 48 Hours Sepsis New/Unexplained Change in Mental Status Sepsis Action Taken by Nursing General: Well developed well nourished older male who appears in no acute distress, breathing comfortably on room air. Normal speech HEENT: Normal cephalic atraumatic. Pupils are equal round and reactive to light. Extraocular movements are intact. Oropharynx is pink with moist mucous membranes. No swelling of the mouth lips or tongue. Neck: Supple with a midline trachea. No meningeal signs or stiffness, no JVD or bruits. No Stridor. Chest: Clear to auscultation bilaterally. No wheezes or rhonchi. No increased work of breathing. He is mildly reproducibly tender. Heart: Regular rate and rhythm without murmurs or gallops. Abdomen: Soft nontender, nondistended without rebound guarding or rigidity. Extremities: No cyanosis clubbing or edema. No calf tenderness or assymetry Spine/Back. Non tender to palpation. No CVA tenderness Skin: Good turgor without rashes. Neurologic exam: Cranial nerves two through 12 are intact. Motor and sensation are intact and symmetrical throughout. Course Administered Medications Discontinued Medications Amiodarone HCl (Amiodarone 200 Mg Tab) 100 mg PO NOW STA Stop: 03/21/20 11:53 Last Admin: 03/21/20 12:18 Dose: 100 mg Documented by: [id number] Gadobutrol (Gadobutrol 65ml Vial) 9 ml IV ONCE ONE Stop: 03/21/20 16:18 Last Admin: 03/21/20 16:17 Dose: 9 ml Documented by: [id number] Ioversol (Optiray 320 125ml) 119 ml IV ONCE ONE Stop: 03/21/20 10:10 Last Admin: 03/21/20 10:11 Dose: 119 ml Documented by: [id number] Medical Decision Making Differential Diagnosis Acute coronary syndrome, CVA, glaucoma, PE, aortic pathology, sepsis ,Covid electrolyte or metabolic abnormality, CHF, Medical Records Attestation: I reviewed the patient's medical records. Home Medications Current Medication List: was personally reviewed by me Laboratory Data Attestation: I reviewed the patient's lab results. Result diagrams: 03/21/20 08:07 03/21/20 08:07 Lab Results 03/21/20 03/21/20 03/21/20 Range/Units 08:07 08:07 08:07 WBC 5.53 (4.8-10.8) K/uL RBC 4.21 L (4.7-6.1) M/uL Hgb 13.2 L (14.0-18.0) g/dL Hct 39.3 L (42-52) % MCV 93.3 (80-100) fL MCH 31.4 (25-34) pg MCHC 33.6 (32-36) g/dL RDW Std Deviation 44.7 (36.4-46.3) fL RDW Coeff of Mickey 13.2 (11.5-14.5) % Plt Count 162 (130-400) K/uL MPV 9.4 (7.4-10.4) fL Immature Gran % (Auto) 0.0 % Neut % (Auto) 61.6 % Lymph % (Auto) 27.5 % [place] % (Auto) 8.1 % Eos % (Auto) 2.4 % Baso % (Auto) 0.4 % Neut # (Auto) 3.41 (1.4-6.5) K/uL Lymph # (Auto) 1.52 (1.2-3.4) K/uL [place] # (Auto) 0.45 (0.11-0.59) K/uL Eos # (Auto) 0.13 (0-0.5) K/uL Baso # (Auto) 0.02 (0-0.2) K/uL Immature Gran # (Auto) 0.00 (0.00-0.02) K/uL PT 20.3 H (9.0-12.0) Seconds INR 2.0 H (0.9-1.1) APTT 33.9 H (21.0-31.0) Seconds PTT Ratio 1.2 Sodium 139 (136-145) mmol/L Potassium 4.3 (3.5-5.1) mmol/L Chloride 108 H (98-107) mmol/L Carbon Dioxide 25 (21-32) mmol/L Anion Gap 6.0 (3-11) BUN 17 (7-18) mg/dl Creatinine 1.11 (0.6-1.4) mg/dl Est Cr Clr Drug Dosing Not Reportable Est GFR ( Amer) 72.3 Est GFR (Non-Af Amer) 62.4 BUN/Creatinine Ratio 15.0 (10-20) Glucose 97 (70-99) mg/dl Calcium 8.7 (8.5-10.1) mg/dl Total Bilirubin 0.9 (0.2-1) mg/dl AST 28 (15-37) U/L ALT 42 (12-78) U/L Alkaline Phosphatase 112 (45-117) U/L Troponin I < 0.015 (0-0.045) ng/ml Total Protein 6.5 (6.4-8.2) gm/dl Albumin 3.2 L (3.4-5.0) gm/dl Globulin 3.3 (2.5-4.0) gm/dl Albumin/Globulin Ratio 1.0 (0.9-2) Lipase 126 (73-393) U/L TSH 4.090 (0.300-4.500) uIu/ml Imaging Data Attestation: I personally reviewed and interpreted this imaging study as follows: Radiologist's Impression: HEAD CT NONCONTRAST CT DOSE: 614.27 mGy.cm HISTORY: weakness TECHNIQUE: Multiaxial CT images of the head were performed without the use of intravenous contrast. Automated exposure control was utilized for this study. A dose lowering technique was utilized adhering to the principles of ALARA. Comparison: Head CT 04/09/2019. Findings: The paranasal sinuses and mastoid air cells are clear. The calvarium and skull base are intact. There is no mass, hematoma, midline shift, acute infarct. White matter hypodensity is nonspecific but suggestive of microvascular ischemic change. The ventricles and sulci demonstrate mild age-related involutional changes. There is an old punctate lacunar infarcts within the right basal ganglia. This remains unchanged. Impression: No significant change compared to the prior study. No acute intracranial abnormality. CT ANGIOGRAM OF THE CHEST CLINICAL HISTORY: Respiratory difficulty. Possible acute pulmonary embolism. COMPARISON STUDY: Chest x-ray dated 03/21/2020, CT scan dated 04/09/2019 TECHNIQUE: Following the IV administration of 119 mL of Optiray-320, CT angiogram of the thorax was performed from the thoracic inlet to the lung bases utilizing the pulmonary embolus protocol. Images are reviewed in the axial, sagittal, and coronal planes. IV contrast was administered without complication. MIP imaging was performed. A dose lowering technique was utilized adhering to the principles of ALARA. CT DOSE: 570.16 mGycm FINDINGS: No pathologically enlarged axillary mediastinal or hilar lymph nodes were v isualized. There is mild dilatation of ascending thoracic aorta which measures 4 cm. There are moderate coronary artery calcifications. There is suggestion of left ventricular hypertrophy. There is mild left atrial dilatation. There were no pulmonary artery filling defects to indicate acute pulmonary embolism. No pleural effusions are visualized. There is scattered areas of linear parenchymal scarring. There is no focal pulmonary consolidation. There are no suspicious pulmonary masses. Advanced arthritic changes are present within the right shoulder. There are calcified loose bodies within the prescapular bursa. IMPRESSION: 1. No evidence of acute pulmonary embolism 2. Mild dilatation of the ascending thoracic aorta which measures 4 cm 3. No evidence of acute parenchymal consolidation 4. Equivocal left ventricular hypertrophy with mild left atrial enlargement XR chest 1V portable HISTORY: Atypical Chest Pain COMPARISON: Chest 05/12/2019. FINDINGS: No pneumothorax. No pleural effusions. The heart remains mildly enlarged. There is mild diffuse interstitial thickening, unchanged. This is likely chronic. Old, healed left-sided rib fractures. Advanced degenerative changes within the right shoulder again noted. No evidence for pulmonary edema. No new focal lung consolidations to suggest pneumonia. IMPRESSION: No significant change compared to the prior study. No acute process. ECG Data Attestation: I personally reviewed and interpreted this ECG as follows: Indication: + chest pain Rate (beats per minute): 54 Rhythm: + sinus bradycardia ECG Intervals/blocks: + First degree AV block ECG [place]: + Normal ECG ST segments: + T-wave inversions (Lateral) ECG Findings: no PACs and no PVCs Comparison ECG Date: from (06/28/19) Change: the following changes noted (T wave inversions laterally were present but appears slightly deeper) MDM Narrative This patient comes in as described above. He was placed on a engine monitor in room a 11. He has multiple different complaints. EKG was obtained as well as CAT scan of his head and multiple blood testing. He also had a chest x-ray. I also ordered a urinalysis and culture. he was reassessed frequently. His EKG has inverted T waves laterally which were present before but may be more pronounced however his troponin is negative. He seems to be doing much better and the pain seemed to go away. Chest x-ray does not show any congestive heart failure pneumonia or pneumothorax. I did a CAT scan of his head is unremarkable. He has no significant electrolyte or metabolic abnormalities and he has nothing to suggest infection or sepsis. I did do a CTA of his chest andthere is no PE or other vascular abnormality seen. I do think he needs to be admitted/observed for further chest/cardiac work-up as well as potential neurologic work-up as well. I have consulted Dr. Shelley who is on-call for [facility] hospitalist group and he will see the patient in ER for these measures Continuous cardiac monitoring: An order was placed in the EMR for continuous cardiac monitoring and the patient was found to be in sinus bradycardia with a rate of 55 Impression & Plan Chest pain, SOB (shortness of breath), Blurred vision, bilateral, Complaint of nasal congestion Discharge Plan Visit Data Chief Complaint: Weakness Stated Complaint: CHEST PAIN,ARM TINGLING,WEAK,PAIN IN BACK OF HEAD ED Provider: Yaniv Cameron Discharge Problem: Chest pain, SOB (shortness of breath), Blurred vision, bilateral, Complaint of nasal congestion Patient Disposition: Admitted As Inpatient Discharge Instructions Interventions: ED Discharge Assessment Last Done: 03/21/20 14:10 Discharge Problem: Chest pain Qualifiers: Chest pain type: precordial pain Qualified Code(s): R07.2 - Precordial pain
--- NOTE | 2020-03-21 07:51 | XRay Report ---
XR chest 1V portable HISTORY: Atypical Chest Pain COMPARISON: Chest 05/12/2019. FINDINGS: No pneumothorax. No pleural effusions. The heart remains mildly enlarged. There is mild dif fuse interstitial thickening, unchanged. This is likely chronic. Old, healed left-sided rib fractures . Advanced degenerative changes within the right shoulder again noted. No evidence for pulmonary izzy a. No new focal lung consolidations to suggest pneumonia. IMPRESSION: No significant change compared to the prior study. No acute process. ACT 112: Negative or not required by law. Electronically signed by: Jamarcus Sorenson M.D. 03/21/2020 7:50 AM
[2020-03-21 08:23] LABS: Basophils # (auto) 0.02 K/uL (0-0.2); Basophils % (auto) 0.4 %; Eosinophils # (auto) 0.13 K/uL (0-0.5); Eosinophils % (auto) 2.4 %; Hematocrit (blood only) 39.3 % (42-52); Hemoglobin 13.2 g/dL (14.0-18.0); Lymphocytes # (auto) 1.52 K/uL (1.2-3.4); Lymphocytes % (auto) 27.5 %; Mean Corpuscular Hemoglobin 31.4 pg (25-34); Mean Corpuscular Hgb Conc 33.6 g/dL (32-36); Mean Corpuscular Volume 93.3 fL (80-100); Mean Platelet Volume 9.4 fL (7.4-10.4); Monocytes # (auto) 0.45 K/uL (0.11-0.59); Monocytes % (auto) 8.1 %; Neutrophils # (auto) 3.41 K/uL (1.4-6.5); Neutrophils % (auto) 61.6 %; Platelet Count 162 K/uL (130-400); RDW Coefficient of Variation 13.2 % (11.5-14.5); RDW Standard Deviation 44.7 fL (36.4-46.3); Red Blood Count 4.21 M/uL (4.7-6.1); White Blood Count 5.53 K/uL (4.8-10.8)
[2020-03-21 08:34] LABS: Partial Thromboplastin Ratio 1.2; Partial Thromboplastin Time 33.9 Seconds (21.0-31.0); Prothrombin Time 20.3 Seconds (9.0-12.0)
--- NOTE | 2020-03-21 08:42 | CT Scan Report ---
HEAD CT NONCONTRAST CT DOSE: 614.27 mGy.cm HISTORY: weakness TECHNIQUE: Multiaxial CT images of the head were performed without the use of intravenous contrast. A utomated exposure control was utilized for this study. A dose lowering technique was utilized adheri ng to the principles of ALARA. Comparison: Head CT 04/09/2019. Findings: The paranasal sinuses and mastoid air cells are clear. The calvarium and skull base are int act. There is no mass, hematoma, midline shift, acute infarct. White matter hypodensity is nonspecifi c but suggestive of microvascular ischemic change. The ventricles and sulci demonstrate mild age-rela leigh involutional changes. There is an old punctate lacunar infarcts within the right basal ganglia. T his remains unchanged. Impression: No significant change compared to the prior study. No acute intracranial abnormality. ACT 112: Negative or not required by law. Electronically signed by: Jamarcus Sorenson M.D. 03/21/2020 8:41 AM
[2020-03-21 08:48] LABS: Alanine Aminotransferase 42 U/L (12-78); Albumin Level 3.2 gm/dl (3.4-5.0); Aspartate Aminotransferase 28 U/L (15-37); Blood Urea Nitrogen 17 mg/dl (7-18); Calcium 8.7 mg/dl (8.5-10.1); Carbon Dioxide 25 mmol/L (21-32); Chloride 108 mmol/L (98-107); Est GFR (African American) 72.3; Est GFR (Non-African American) 62.4; Glucose 97 mg/dl (70-99); Lipase 126 U/L (73-393); Potassium 4.3 mmol/L (3.5-5.1); Sodium 139 mmol/L (136-145)
[2020-03-21 08:58] LABS: Alkaline Phosphatase 112 U/L (45-117); Bilirubin,Total 0.9 mg/dl (0.2-1); Globulin 3.3 gm/dl (2.5-4.0); Total Protein 6.5 gm/dl (6.4-8.2); Troponin I < 0.015 ng/ml (0-0.045)
[2020-03-21] MEDS ORDERED: OPTIRAY 320 125ml IV ONE (10:09)
--- NOTE | 2020-03-21 10:22 | CT Scan Report ---
CT ANGIOGRAM OF THE CHEST CLINICAL HISTORY: Respiratory difficulty. Possible acute pulmonary embolism. COMPARISON STUDY: Chest x-ray dated 03/21/2020, CT scan dated 04/09/2019 TECHNIQUE: Following the IV administration of 119 mL of Optiray-320, CT angiogram of the thorax was p erformed from the thoracic inlet to the lung bases utilizing the pulmonary embolus protocol. Images a re reviewed in the axial, sagittal, and coronal planes. IV contrast was administered without complica tion. MIP imaging was performed. A dose lowering technique was utilized adhering to the principles o f ALARA. CT DOSE: 570.16 mGycm FINDINGS: No pathologically enlarged axillary mediastinal or hilar lymph nodes were visualized. There is mild dilatation of ascending thoracic aorta which measures 4 cm. There are moderate coronary artery calcifications. There is suggestion of left ventricular hypertrophy. There is mild left atria l dilatation. There were no pulmonary artery filling defects to indicate acute pulmonary embolism. No pleural effusions are visualized. There is scattered areas of linear parenchymal scarring. There is no focal pulmonary consolidation. T here are no suspicious pulmonary masses. Advanced arthritic changes are present within the right shoulder. There are calcified loose bodies wi thin the prescapular bursa. IMPRESSION: 1. No evidence of acute pulmonary embolism 2. Mild dilatation of the ascending thoracic aorta which measures 4 cm 3. No evidence of acute parenchymal consolidation 4. Equivocal left ventricular hypertrophy with mild left atrial enlargement ACT 112: Negative or not required by law. Electronically signed by: Checo Colby M.D. 03/21/2020 10:21 AM
--- NOTE | 2020-03-21 11:30 | History & Physical Report ---
Date of Service March 21, 2020 Assessment & Plan (1) Dizziness: ?episode this morning from panic attack related to trying to breath through his hypertrophied nasal turbinates however multiple concerning features, risk factors and elevated BP for alternative etiology. Unclear etiology but appears blood pressure related; ?orthostatic/bradycardia/atrial fibrillation episode/hypertensive urgency. Given unclear etiology as above with hypertensive urgency will get MRI brain w/wo IV contrast (Hx prostate ca.) to r/o CVA vs. PRES. Given change in sensation in finger tips and increasing memory deficit and anxiety levels more subacutely will get B12 level with next labs. Monitor on telemetry overnight for recurrence on symptoms. (2) Chest pain: Suspect MSK based on reproducibility on exam. Although concerning radiation to his left and right arms with significant risk factors for CV disease. Will get serial troponins. (3) Hypertensive urgency: Possible cause of symptoms above vs. white coat hypertension noted by his . Will give usual amiodarone dose now. Missed his usual carvedilol this morning and given current HR will reduce his normal dose in half. Hydralazine PRN ordered for continued sBP > 180 once transferred to med/tele. (4) Paroxysmal atrial fibrillation: Possible RVR episode this morning. Give his usual amiodarone dose now and monitor for recurrence on telemetry. (5) Obstructive sleep apnea: Not yet fitted for CPAP, will defer treatment while in hospital given nasal hypertrophy and wish to observe for recurrence of episode this morning. (6) SDAT (senile dementia of Alzheimer's type): B12 level as above. Did not wish to take memantine as outpatient. (7) Diabetes mellitus type 2 in obese: T2DM diet Hold metformin during admission. Insulin sliding scale for correction only, will add long acting / carb coverage if needing > 10 units/day. (8) Hyperlipidemia: Continue atorvastatin 40 mg p.o. at bedtime (9) Prostate cancer: Latest PSA WNL in January. Reports having Lupron injections depending on his PSA level. (10) DVT prophylaxis: Warfarin as above. Monitor PTINR. Admission and Anticipated Discharge Date Admission Date: 03/21/2020 History of Present Illness Chief Complaint: Shortness of breath, chest pain, tingling in finger tips. Primary Care Provider: Daniel Mariscal MD Saira Jones is an 79-year-old male who presents to the ER with neck pain, shortness of breath, dizziness, extremity change in sensation. History taking is limited from patient due to ongoing memory issues over the last year. Symptoms started at 4am this morning. Occurred while walking back from the bathroom after urinating and clearing his nose. He had a sudden constellation of symptoms including dizziness (lightheaded, "out of it", felt like passing out, lasted till coming to ER), bilateral arm change in sensation (weak and numb, tingling, left then right, still present but improved), generalized weakness, change in vision (blood shot and finding it hard to focus). [place] his normal self yesterday. Occasionally gets worked up when he cannot breath through his nose properly since his operation in June for hyper. Cardiovascular risk factors of hyperlipidemia, type 2 diabetes (HbA1C 6.1 in Dec 2019). He is under cardiology (Dr. Tan) for persistent symptomatic atrial fibrillation (new onset June 2018) status post multiple cardioversions, now on amiodarone in sinus rhythm and anticoagulated with warfarin. He does feel the episode this morning was similar to his prior RVR episodes in the past. In the ER, initial troponin negative. EKG with mild changes lateral TW changes therefore referred to medicine for further workup. Allergies Allergy/AdvReac Type Severity Reaction Status Date / Time meperidine Allergy Mild OVER-SEDATION, Verified 03/21/20 07:49 N/V W/ SYNCOPE Home Medications Home Medications Medication Instructions Recorded Confirmed Type latanoprost 1 drp OPB HS 06/28/18 03/21/20 History aspirin [Aspirin Low Dose] 81 mg PO QAM 12/11/18 03/21/20 History senna 8.6 mg PO BID PRN #20 cap 04/09/19 03/21/20 Rx blood sugar diagnostic #300 ea 08/25/19 01/25/20 Rx blood-glucose meter #1 ea 09/08/19 01/25/20 Rx leuprolide (4 month) 30 mg (4 30 mg IM Q16W #1 ea 10/08/19 03/21/20 Rx month) intramuscular syringe kit carvedilol 12.5 mg tablet 12.5 mg PO BID #60 tab 10/19/19 03/21/20 Rx amiodarone 200 mg tablet 100 mg PO QAM tab 12/21/19 03/21/20 History atorvastatin 40 mg tablet 40 mg PO HS #90 tab 01/25/20 03/21/20 Rx metformin 500 mg tablet 500 mg PO BID #60 tab 02/24/20 03/21/20 Rx dorzolamide-timolol [Cosopt] 1 drp OPHTHALMIC (EYE) HS 03/21/20 03/21/20 History latanoprost drp BID 03/21/20 History mecobalamin (vitamin B12) 1,000 mcg PO QAM 03/21/20 03/21/20 History warfarin 3 mg PO HS 03/21/20 03/21/20 History Past Med/Surg History Medical History Antithrombin III deficiency FOLLOWS PCP > DR. TAN/LOC Atrial fibrillation CARDIOVERSION > [place]> SUMMER 2019 Cellulitis (05/2019) Depression Glaucoma LEFT EYE History of hypertension History of skin cancer MELANOMA AND BASAL CELL Hx of deep venous thrombosis SEVERAL YEARS AGO, ON COUMADIN EVER SINCE. Hx pulmonary embolism WITH DVT Obstructive sleep apnea RECENT DIAGNOSIS, NEEDS TO BE FITTED FOR CPAP. Rib fractures L SIDE / MECHANICAL FALL 03/2019. PT DENIES ANY RIB PAIN NOW. Skin lesion ON L ANKLE, DERMATOLOGY DID BIOPSY 06/21, ON ABX. PT TO LET SURGEON KNOW ABOUT RESULTS. Surgical History History of cardioversion (11/2018) History of local excision of skin lesion MULTIPLE REMOVAL Hx of colonoscopy Family History Mother Cancer Venous embolism and thrombosis of deep vessels of lower extremity Father Stroke syndrome Other No family history of bleeding disorder No pertinent family history Denies family history of Alzheimer disease Bipolar disorder Breast cancer COPD (chronic obstructive pulmonary disease) Asthma Social History Smoking Status: Never smoker Second Hand Exposure: No; Do You Dip or Chew Tobacco: No; Tobacco Cessation Education Requested by Patient: No Hx Alcohol Use: No Hx Substance Use: No Preferred Language: Lithuanian Communication Ability: Effective Visual Impairment: No Limitations Hearing Ability: Normal Corporate Development Intern Required: No Beliefs That Will Affect Care: Sabianism Sabianism Beliefs: no blood products, Jehovah Witness marital status: Current Living Situation: Spouse current occupational status: retired current occupation: Worked at [employer] How many Children do You have: 2 Other Information That Helps Us Care for You: No Feels Safe at Home: Yes Safety Concerns: Feels Safe At This Time Childhood Exposure to Second-Hand Smoke: No caffeine: No during the past year weight has: remained stable Dental Care, Regularly: Yes Physical Activity Frequency: Does not Exercise Seatbelt Use: always Sunscreen Use: No Assistive Devices: Glasses Review of Systems Review of Systems: Left side of throat painful, since his surgery, worse last night. Difficulty breathing through nose. Worse memory issues over the last year - worse since the Summer Physical Exam Constitutional: well developed, well nourished and + obese; no acute distress Eyes: PERRL, conjunctivae normal, anicteric sclerae EOM intact bilaterally; no nystagmus Neck: trachea midline, no thyromegaly Respiratory: normal respiratory effort, lungs clear to auscultation Cardiovascular: Rate/Rhythm: regular rate and regular rhythm Heart Sounds: no murmur Vessels: no JVD Extremities: normal capillary refill and + pedal edema (trace b/l equal ankles); no calf tenderness Chest (Breasts): Additional Comments: Reproducible chest pain on palpation Gastrointestinal (Abdomen): normal bowel sounds, soft, nontender, no hepatosplenomegaly Musculoskeletal: no cyanosis or clubbing, extremities motor strength 5/5 Skin: no rashes, warm and dry Neurologic: moves all extremities and awake; no focal motor deficits (lateralizing) Speech / Cognition: normal speech Motor/Sensory: + sensory deficit (tingling in left finger tips non dermatomal); no tremor and no pronator drift Coordination: normal [id number] test Psychiatric: A+Ox3, euthymic affect Genitourinary: no CVA tenderness Results & Data Results & Data ([facility]) Vital Signs (Past 12 Hours) Vital Signs Temp Pulse Resp BP Pulse Ox 03/21/20 11:00 55 L 17 159/89 H 95 03/21/20 10:30 55 L 16 149/83 H 94 03/21/20 10:18 60 19 173/85 H 95 03/21/20 10:17 62 17 95 03/21/20 09:30 55 L 22 141/88 H 94 10/27/20 09:00 54 L 18 132/80 94 03/21/20 08:32 57 L 15 95 03/21/20 08:18 54 L 22 151/86 H 94 03/21/20 08:00 54 L 20 151/86 H 95 03/21/20 07:47 54 L 22 139/73 95 03/21/20 07:30 54 L 20 137/77 94 03/21/20 06:57 36.9 C 59 L 20 206/73 H [address] NONCONTRAST IMPRESSION: No significant change compared to the prior study. No acute process. XR chest 1V portable IMPRESSION: No significant change compared to the prior study. No acute process. CT ANGIOGRAM OF THE CHEST IMPRESSION: 1. No evidence of acute pulmonary embolism 2. Mild dilatation of the ascending thoracic aorta which measures 4 cm 3. No evidence of acute parenchymal consolidation 4. Equivocal left ventricular hypertrophy with mild left atrial enlargement ECG Indication: chest pain Rate (beats per minute): 54 Rhythm: sinus bradycardia Findings: + other (TW flattening anterior), + 1st degree AV block and + T-wave inversion (lateral) Comparison ECG Date: from (June 2019) Change: the following changes noted (TWI increased in lateral leads but similar to back in Apr 2019) Code Status & VTE Plan Code Status DNR/DNI as per patient wishes. VTE Prophylaxis Plan VTE Prophylaxis will be ordered: Yes PG Care Time/CCT Total # of Minutes Spent Total Time Spent with Patient: Total time spent is greater than 50% in coordination of care (as documented) at patient's floor/unit and/or counseling patient: Coding Level of Care Code 72430 OBS Care - Level 3 Diagnoses Dizziness R42 Chest pain R07.9 Hypertensive urgency I16.0 Paroxysmal atrial fibrillation I48.0 Obstructive sleep apnea G47.33 SDAT (senile dementia of Alzheimer's type) G30.1; F02.80 Diabetes mellitus type 2 in obese E11.69; E66.9 Hyperlipidemia E78.5 Prostate cancer C61 DVT prophylaxis Z29.9
[2020-03-21] MEDS ORDERED: AMIODARONE 200 MG TAB PO STA (11:52)
[2020-03-21] MEDS ORDERED: DEXTROSE 50% 50 ML SYRINGE IV PRN (15:00)
[2020-03-21] MEDS ORDERED: TIMOLOL MALEATE 0.25% OP SOLN 5 ML BTL OPB SCH (15:00)
[2020-03-21] MEDS ORDERED: GLUCOSE 40% GEL 15 GM TUBE PO PRN (15:00)
[2020-03-21] MEDS ORDERED: hydrALAZINE HCL 20 MG/ML VIAL IV PRN (15:00)
[2020-03-21] MEDS ORDERED: GLUCOSE 10 TABS/TUBE PO PRN (15:00)
[2020-03-21] MEDS ORDERED: GLUCAGON FOR INJ 1 MG VIAL SQ PRN (15:00)
[2020-03-21] MEDS ORDERED: ACETAMINOPHEN 325 MG TAB PO PRN (15:00)
[2020-03-21] MEDS ORDERED: ONDANSETRON INJ 2 MG/ML 2 ML VIAL IV PRN (15:00)
[2020-03-21] MEDS ORDERED: CARBOHYDRATES FOR HYPOGLYCEMIA PO PRN (15:00)
[2020-03-21] MEDS ORDERED: POLYETHYLENE (MIRALAX) 17 GM PACK PO PRN (15:00)
[2020-03-21] MEDS ORDERED: SENNA 8.6 MG TAB PO PRN (15:29)
[2020-03-21] MEDS ORDERED: WARFARIN SOD 3 MG TAB PO SCH (16:00)
[2020-03-21] MEDS ORDERED: GADOBUTROL 65ML VIAL IV ONE (16:17)
--- NOTE | 2020-03-21 16:31 | Magnetic Resonance Report ---
MRI OF THE BRAIN WITHOUT AND WITH IV CONTRAST CLINICAL HISTORY: dizziness, left arm change in sensation/weakness COMPARISON STUDY: Noncontrast head CT dated 03/21/2020, MRI the brain dated 12/27/2018 TECHNIQUE: MRI of the brain was performed from the vertex to the skull base utilizing various T1 and T2 weighted sequences. Following the IV administration of 9 mL of Gadavist contrast, additional enhan augustine images were obtained. FINDINGS: Sagittal T1, axial diffusion, proton density and T2 weighted axial, coronal FLAIR, and pre and post a xial T1-weighted images were acquired. These were supplemented with post gadolinium coronal T1 weight ed images. No intra or extra-axial mass lesions are visualized. Axial diffusion-weighted images reveal no evidence of acute or subacute infarction. There is no evidence of ventricular dilatation. Proton density T2-weighted and FLAIR images reveal scattered foci of increased T2 signal within the w rjaesh matter, likely on a small vessel basis. There are no abnormal flow voids. There is no evidence of pathologic enhancement. IMPRESSION: 1. No acute intracranial findings 2. No evidence of acute or subacute infarction 3. No evidence of intracranial mass 4. Scattered foci of increased T2 and FLAIR signal within the white matter, similar to the preceding study and likely on a small vessel basis. ACT 112: Negative or not required by law. Electronically signed by: Checo Colby M.D. 03/21/2020 4:29 PM
[2020-03-21] MEDS: ASPIRIN 81 MG ECTAB PO SCH (16:50)
[2020-03-21] MEDS: INSULIN ASPART 100 UNITS/ML 3 ML PEN SC SCH ×2 (16:53→21:27)
[2020-03-21] MEDS: carvediloL 6.25 MG TAB PO SCH ×2 (16:55→21:19)
[2020-03-21] MEDS ORDERED: ATORVASTATIN 40 MG TAB PO SCH (21:00)
[2020-03-21] MEDS ORDERED: LATANOPROST 0.005% OP SOLN 2.5 ML BTL OPB SCH (21:00)
--- NOTE | 2020-03-22 05:57 | Electrocardiogram Report ---
Test Reason : Blood Pressure : / mmHG Vent. Rate : 054 BPM Atrial Rate : 054 BPM P-R Int : 214 ms QRS Dur : 074 ms QT Int : 472 ms P-R-T Axes : 063 001 117 degrees QTc Int : 447 ms Poor data quality, interpretation may be adversely affected Sinus bradycardia with 1st degree A-V block T wave abnormality, consider anterolateral ischemia Abnormal ECG When compared with ECG of 28-JUN-2019 13:47, T wave inversion more evident in Anterolateral leads Confirmed by Ricardo Peng ([id number]) on 03/22/2020 5:56:55 AM Referred By: ED Confirmed By:Ricardo Peng
[2020-03-22 06:21] LABS: Hematocrit (blood only) 39.4 % (42-52); Hemoglobin 13.3 g/dL (14.0-18.0); Mean Corpuscular Hemoglobin 31.6 pg (25-34); Mean Corpuscular Hgb Conc 33.8 g/dL (32-36); Mean Corpuscular Volume 93.6 fL (80-100); Mean Platelet Volume 9.7 fL (7.4-10.4); Platelet Count 164 K/uL (130-400); RDW Coefficient of Variation 13.4 % (11.5-14.5); RDW Standard Deviation 46.4 fL (36.4-46.3); Red Blood Count 4.21 M/uL (4.7-6.1); White Blood Count 5.33 K/uL (4.8-10.8)
[2020-03-22 06:30] LABS: INR 1.6 (0.9-1.1); Prothrombin Time 16.6 Seconds (9.0-12.0)
[2020-03-22 06:48] LABS: Estimated Average Glucose 126 mg/dl
[2020-03-22 06:50] LABS: BUN Creatinine Ratio 15.2 (10-20); Blood Urea Nitrogen 19 mg/dl (7-18); Calcium 8.5 mg/dl (8.5-10.1); Carbon Dioxide 30 mmol/L (21-32); Chloride 107 mmol/L (98-107); Creatinine Clr Calc Pharmacy 51.5 ml/min; Est GFR (African American) 61.4; Glucose 118 mg/dl (70-99); Potassium 4.3 mmol/L (3.5-5.1); Sodium 139 mmol/L (136-145)
[2020-03-22 06:58] LABS: Troponin I < 0.015 ng/ml (0-0.045)
[2020-03-22] MEDS: INSULIN ASPART 100 UNITS/ML 3 ML PEN SC SCH ×2 (07:37→12:24)
[2020-03-22] MEDS: carvediloL 6.25 MG TAB PO SCH (08:51)
[2020-03-22] MEDS: ASPIRIN 81 MG ECTAB PO SCH (08:52)
[2020-03-22] MEDS ORDERED: CYANOCOBALAMIN 500 MCG TABLET (VITAMIN B-12) PO SCH (09:00)
[2020-03-22] MEDS ORDERED: AMIODARONE 200 MG TAB PO SCH (09:00)
[2020-03-22] MEDS ORDERED: LATANOPROST 0.005% OP SOLN 2.5 ML BTL OPB SCH (09:00)
--- NOTE | 2020-03-22 10:59 | Discharge Summary ---
Date of Service March 22, 2020 Admission HPI Per Admitting Provider Saira Jones is an 79-year-old male who presents to the ER with neck pain, shortness of breath, dizziness, extremity change in sensation. History taking is limited from patient due to ongoing memory issues over the last year. Symptoms started at 4am this morning. Occurred while walking back from the bathroom after urinating and clearing his nose. He had a sudden constellation of symptoms including dizziness (lightheaded, "out of it", felt like passing out, lasted till coming to ER), bilateral arm change in sensation (weak and numb, tingling, left then right, still present but improved), generalized weakness, change in vision (blood shot and finding it hard to focus). [place] his normal self yesterday. Occasionally gets worked up when he cannot breath through his nose properly since his operation in June for hyper. Cardiovascular risk factors of hyperlipidemia, type 2 diabetes (HbA1C 6.1 in Dec 2019). He is under cardiology (Dr. Mas) for persistent symptomatic atrial fibrillation (new onset June 2018) status post multiple cardioversions, now on amiodarone in sinus rhythm and anticoagulated with warfarin. He does feel the episode this morning was similar to his prior RVR episodes in the past. In the ER, initial troponin negative. EKG with mild changes lateral TW changes therefore referred to medicine for further workup. Principal Diagnosis Panic attack related to difficulty breathing through nose Discharge Exam Constitutional WD/WN, vitals as above Eyes PERRL, conjunctivae normal, anicteric sclerae ENMT Nose: + turbinate abnormality (enlarged) Mouth: no oropharynx abnormality Neck trachea midline, no thyromegaly Respiratory normal respiratory effort, lungs clear to auscultation Cardiovascular RRR, no murmur, no edema Gastrointestinal (Abdomen) normal bowel sounds, soft, nontender, no hepatosplenomegaly Musculoskeletal no cyanosis or clubbing, extremities motor strength 5/5 Skin no rashes, warm and dry Neurologic patellar DTR's 2+ bilat, sensation intact and PERRL, EOMI, accommodation nl, no face palsy, no dysarthria Psychiatric A+Ox3, euthymic affect Lymphatic no cervical or axillary lymphadenopathy Discharge Data Allergies Allergy/AdvReac Type Severity Reaction Status Date / Time meperidine Allergy Mild OVER-SEDATION, Verified 03/21/20 07:49 N/V W/ SYNCOPE Consultations 03/21/20 11:29 ED Decision to Admit Stat Ordered Studies 03/21/20 07:19 CT head/brain wo con Stat 03/21/20 09:01 CT angio chest PE protocol Stat 03/21/20 15:00 MR brain wo/w con Stat Hospital Course (1) Dizziness: ?episode this morning from panic attack related to trying to breath through his hypertrophied nasal turbinates however multiple concerning features, risk factors and elevated BP for alternative etiology. MRI brain normal, no stroke blood pressure and heart rate better no evidence of OK patient felt better after benzodiazepine the issue was most likely panic attack related to inability to breathe through his nose he has know issues with nasal turbinates he had surgery in the past with ENT, he has an appointment with Dr. Veronica next week instructed patient that if he gets worked up again, take a small dose of lorazepam, lay down, focus on breathing through his mouth (2) Chest pain: Suspect MSK based on reproducibility on exam. serial troponins negative, no issues on telemetry (3) Hypertensive urgency: Possible cause of symptoms above vs. white coat hypertension noted by his . pressure likely up from anxiety/panic attack pressures much better over night continue Coreg which the dose was actually lowered due to bradycardia (4) Paroxysmal atrial fibrillation: continue Amiodarone and Coreg rates controlled overnight on tele (5) Obstructive sleep apnea: Not yet fitted for CPAP, will defer treatment while in hospital given nasal hypertrophy and wish to observe for recurrence of episode this morning. (6) SDAT (senile dementia of Alzheimer's type): B12 level as above. Did not wish to take memantine as outpatient. (7) Diabetes mellitus type 2 in obese: T2DM diet Hold metformin during admission. Insulin sliding scale for correction only, will add long acting / carb coverage if needing > 10 units/day. (8) Hyperlipidemia: Continue atorvastatin 40 mg p.o. at bedtime (9) Prostate cancer: Latest PSA WNL in January. Reports having Lupron injections depending on his PSA level. Total Time Total Time Spent Total Time Spent (In Minutes): 37 minutes Total Time Includes: Examination of the Patient, Discharge Planning and Medication Reconciliation Discharge Plan Discharge Items Patient Disposition: Home - Self-Care Reason For Visit: CHEST PAIN Discharge Diagnosis: Panic attack due to inability to breathe through nose Chest pain Condition on Discharge: Good Activity: Resume your previous activity Non-emergency contact: Primary Care Provider Call non-emergency contact if: you have any medication questions and your symptoms worsen Follow-up/Referrals: Derrick Mariscal MD [Primary Care Provider] - 03/27/20 10:30 am (one week) Diet: Carb Consistent or DM2 and Heart Healthy Addtl Attending Provider Instructions: Medications: - CARVEDILOL: dose lowered to 6.25mg twice a day - LORAZEPAM: will prescribe 0.5mg as needed for anxiety, try taking the next time you get worked up and are scared about having a difficult time breathing do not take more than once a day and try to not take every day Chest pain, dyspnea, elevated blood pressure, headache, dizziness MRI brain negative for stroke no evidence of acute heart attack, heart enzymes were negative suspect that all your symptoms were related to anxiety, possible panic attack due to difficulty breathing follow up with ENT next week as scheduled try taking lorazepam 0.5mg daily as needed if your anxiety/panic gets worse recommend you take the lorazepam, lay down, focus on breathing in and out through your mouth to calm yourself down Slow heart rate dose of carvedilol reduced to 6.25mg twice a day, you can split 12.5mg tablets in half if you need to heart rate on monitor while here was in 50-60's, sinus rhythm Pending Studies at Discharge: No Stand-Alone [facility] Medications and DC Order Prescriptions: New carvedilol 6.25 mg Tablet 6.25 mg PO BID 30 Days Qty: 60 RF: 3 lorazepam 0.5 mg tablet 0.5 mg PO DAILY PRN (Reason: anxiety) Qty: 10 RF: 0 Continued (DME) blood sugar diagnostic [OneTouch Ultra Blue Test Strip] Strip See Rx Instructions .ROUTE .MEDSUPPLY Qty: 300 RF: 3 (DME) blood-glucose meter [OneTouch Ultra2 Meter] Misc See Rx Instructions .ROUTE .MEDSUPPLY Qty: 1 RF: 0 atorvastatin 40 mg tablet 40 mg PO HS Qty: 90 RF: 1 metformin 500 mg tablet 500 mg PO BID Qty: 60 RF: 5 Lupron [place] (4 month) 30 mg syringe kit 30 mg IM Q16W Qty: 1 RF: 0 amiodarone 200 mg tablet 100 mg PO QAM RF: 0 latanoprost 0.005 % drops 1 drp OPB HS RF: 0 aspirin [Aspirin Low Dose] 81 mg Tablet,Delayed Release (Dr/Ec) 81 mg PO QAM RF: 0 senna 8.6 mg capsule 8.6 mg PO BID PRN (Reason: constipation) Qty: 20 RF: 0 warfarin 3 mg tablet 3 mg PO HS RF: 0 mecobalamin (vitamin B12) 1,000 mcg tablet,chewable 1,000 mcg PO QAM RF: 0 dorzolamide-timolol [Cosopt] 22.3-6.8 mg/mL Drops 1 drp OPHTHALMIC (EYE) HS RF: 0 latanoprost 0.005 % drops BID RF: 0 Discontinued carvedilol 12.5 mg tablet 12.5 mg PO BID Qty: 60 RF: 11 Discharge Orders: Discharge Order (Routine); Ordered 03/22/20 Ordered By: Abner Hurtado/Other Patient Handouts: Symptoms of a Heart Attack, Managing Type 2 Diabetes, Understanding the Pain Response Admission Data Admit Date/Time: 03/21/20 12:12 Attending Provider: Abner Suresh Admit Provider: Aly Shelley Primary Care Provider: Derrick Mariscal Other Providers: Aly Shelley Other Interventions: Discharge Summary Assessment (RN) Last Done: 03/22/20 12:52 Coding Level of Care Code 14652 OBS Care - Discharge Diagnoses Dizziness R42 Chest pain R07.9 Hypertensive urgency I16.0 Paroxysmal atrial fibrillation I48.0 Obstructive sleep apnea G47.33 SDAT (senile dementia of Alzheimer's type) G30.1; F02.80 Diabetes mellitus type 2 in obese E11.69; E66.9 Hyperlipidemia E78.5 Prostate cancer C61
[2020-03-22] MEDS ORDERED: DORZOLAMIDE/TIMOLOL 22.3/6.8MG/ML 10 ML BTL OP SCH (21:00)
== END 2020-03-22 13:41 | disposition home or self-care (01) ==
LOC: ED 06:52 → 2E 06:52 → SUATTDRO 12:12 → 2E 14:10

== ENCOUNTER 2022-04-12 19:32 | Observation (INO) ==
--- NOTE | 2022-04-12 21:59 | Emergency Department Note ---
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 The last few days worsening lower abdominal pain and decreased bowel outs. Arrives with complaints of constipation does have some lower abdominal tenderness to palpation bilaterally. KUB with some moderate constipation. Enema attempted without any success and a rectal exam reveals no stool in the rectal vault. Patient continues to have some lower abdominal tenderness palpation. CT and labs were obtained. CT of the abdomen pelvis reveals some periappendiceal inflammation though no clear evidence of appendicitis and labs are essentially unremarkable. I discussed the case with general surgery and they feel monitoring the patient for serial abdominal exams would be appropriate. Advised keeping n.p.o., holding further Coumadin and not giving any antibiotics at this time. Given his hypertensive head bleed recently I did get a CT of the head which is fortunately without e vidence of current bleed. Patient was given some IV fentanyl for pain and does note that his pain has improved. I discussed case with the hospitalist and they are on board with the plan as well. Prior Medical Record and Triage/Nursing Notes reviewed by Me Additional history obtained from chart Differentials: . Constipation, anxiety, inflammatory bowel, diverticulitis, UTI, appendicitis, pyelonephritis, kidney stone, obstruction, mesenteric ischemia, multiple other possibilities considered. Vital Signs: reviewed and remarkable for no significant abnormalities Interventions: Fentanyl 50 mcg IV, Zofran 4 mg IV Labs:Reviewed and remarkable for no significant abnormalities Imaging:CT of the abdomen pelvis without contrast reveals periappendiceal inf lammation without clear evidence of appendicitis. CT of the head reveals resolving basal ganglier hemorrhagic infarct Consults:Dr Vargas Gen Surg through [facility] Hospitalist Plan: Disposition:Hospitalization. Condition: Good History of Present Illness:81-year-old male arrives for evaluation of constipation. Patient been in the hospital about 2 months ago for a head bleed due to high blood pressure and being on Coumadin. He has since restarted his Coumadin due to multiple DVTs. Over the last few days he notes has been feeling quite constipated. He only had a small bowel movement yesterday and no bowel movement today. He notes he has been straining trying to push out of movement without any success. He does note that his last head bleed was after being constipated and bearing down too hard. He denies any current headache neck pain or neurologic deficits. Currently he is having some lower abdominal cramping which radiates into his rectum. He did try a fleets enema at home without improvement. Is also using twice daily laxative. He does admit he does not drink enough fluids. No falls, trauma, injury. No black or bloody stools recently. ROS: See above HPI for pertinent positives & negatives. A total of 8 systems reviewed and were otherwise negative. Past Medical History:See Below Past Surgical History:See Below Family History:See Below Social History:See Below Home Medications:See Below Allergies:Demerol Vitals:Blood Pressure: 106/73, Pulse 83, RR 18, T 36.3C, O2 96% on RA Physical Exam: GENERAL: Patient is tired appearing and in minimal distress. EYES: No scleral icterus, unremarkable pupils. ENT: Mucous membranes moist, no nasal congestion. CARDIOVASCULAR: Regular rate and rhythm.No murmurs, rubs, gallops appreciated. GASTROINTESTINAL: Abdomen soft, non-tender, no peritonitis.Bowel sounds posi tive.No masses appreciated. EXTREMITIES: Normal motion all extremities, no cyanosis, no edema. NEUROLOGIC: Alert and oriented, no acute motor or sensory deficits, no focal weakness, cranial nerves grossly intact. SKIN: No rash, no jaundice, no diaphoresis. PSYCH: Appropriate GCS: 15 ED Course: Times/Reassessments: Pain is improved with fentanyl. He is agreeable to hospitalization Tristan Sandoval MD Past Med/Surg History Medical History (Updated 04/13/22 @ 02:45 by Dakota Gray MD) Acute spont intraparenchymal hemorrhage assoc w/ hypertension Antithrombin III deficiency FOLLOWS PCP > DR. TAN/MARISCAL - ON COUMADIN Blurred vision, bilateral Cataract RT/LEFT Constipation Diabetes mellitus type 2 in obese Forgetfulness "RELATED TO AGE" Glaucoma LEFT EYE History of adenomatous polyp of colon History of atrial fibrillation History of prostate cancer History of skin cancer MELANOMA AND BASAL CELL Hx of deep venous thrombosis SEVERAL YEARS AGO, REASON FOR COUMADIN Hx pulmonary embolism WITH DVT ? YEAR "A FEW YEARS AGO" Hyperlipidemia Hypertension Hypertensive heart disease preserved LV function Obstructive sleep apnea no device used (could not tolerate) Osteoarthritis Prostate cancer Refusal of blood transfusions as patient is [employer] Thoracic ascending aortic aneurysm UNSURE ABOUT DX Surgical History History of cardioversion (11/2018) X 4--last 06/22/[address] [facility] History of colonoscopy History of local excision of skin lesion MULTIPLE REMOVAL History of nasal septoplasty multiple-with Celon turbinate reduction History of tooth extraction Hx of colonoscopy Hx of prostate biopsy Family History Mother Venous embolism and thrombosis of deep vessels of lower extremity Cancer Father Stroke syndrome Other No family history of adverse response to anesthesia No family history of bleeding disorder No pertinent family history Denies family history of Ovarian cancer Prostate cancer Coronary heart disease Alzheimer disease Bipolar disorder Breast cancer COPD (chronic obstructive pulmonary disease) Colorectal cancer Asthma Social History Smoking Status: Never smoker Second Hand Exposure: Yes (IN THE PAST); Hx Alcohol Use: No Hx Substance Use: No Preferred Language: Ivorian Communication Ability: Effective Visual Impairment: No Limitations Hearing Ability: Normal Paperhanger And Painter Required: No Beliefs That Will Affect Care: Sikhism Sikhism Beliefs: JEHOVAH WITNESS (NO BLOOD PRODUCTS) marital status: Current Living Situation: Spouse current occupational status: retired current occupation: Worked at [employer] How many Children do You have: 2 Feels Safe at Home: Yes Childhood Exposure to Second-Hand Smoke: No caffeine: No during the past year weight has: remained stable Dental Care, Regularly: Yes Physical Activity Frequency: Does not Exercise Seatbelt Use: always Sunscreen Use: No Assistive Devices: Glasses Allergies Allergies Allergy/AdvReac Type Severity Reaction Status Date / Time meperidine Allergy Intermediate OVER-SEDATION, Verified 04/13/22 02:21 N/V W/ SYNCOPE Home Meds Home Medications Medication Instructions Recorded Confirmed latanoprost 0.005 % eye drops 1 drp OPB HS 06/28/18 04/13/22 aspirin 81 mg tablet,delayed 81 mg PO QAM 07/19/19 11/19/22 release (Christine Low Dose Aspirin) mecobalamin (vitamin B12) 1,000 1,000 mcg PO QAM 03/21/20 04/13/22 mcg chewable tablet warfarin 3 mg tablet 4.5 mg PO TH 06/18/21 04/13/22 docusate sodium 100 mg capsule 200 mg PO BID 03/27/22 04/13/22 sennosides 8.6 mg capsule (senna) 17.2 mg PO BID constipation 03/27/22 04/13/22 Previous Rx's Medication Instructions Recorded leuprolide acetate (6 month) 45 mg 45 mg IM Q24W #1 ea 04/25/20 intramuscular syringe kit (Lupron Depot) atorvastatin 40 mg tablet 40 mg PO HS #90 tabs 07/23/21 warfarin 3 mg tablet 3 mg PO .COMPLEX #120 tabs 08/24/21 blood sugar diagnostic #100 ea 02/25/22 lisinopril 10 mg tablet 10 mg PO BID #60 tabs 02/25/22 carvedilol 6.25 mg tablet 6.25 mg PO BID #180 tabs 03/01/22 bupropion HCl 150 mg 24 hr tablet, 150 mg PO QAM #90 tabs 03/11/22 extended release amlodipine 10 mg tablet 10 mg PO DAILY #90 tabs 03/12/22 amiodarone 200 mg tablet 200 mg PO QAM #90 tabs 03/18/22 metformin 500 mg tablet 500 mg PO BID #180 tabs 04/08/22 Results & Data (ED) Vital Signs Vital Signs - 24 hr 04/12/22 19:42 04/13/22 00:29 04/13/22 02:15 Temperature 36.3 C L Temperature Source Temporal Artery Scan Pulse Rate 83 Pulse Rate [Finger] 72 67 Respiratory Rate 18 18 18 Respiratory Effort / Characteristics Non-Labored Spontaneous Non-Labored Spontaneous Respiratory Depth Normal Normal Respiratory Pattern Regular Regular Blood Pressure 106/73 Blood Pressure [Right Arm] 171/87 H 175/94 H Blood Pressure Mean 84 Blood Pressure Mean [Right Arm] 115 121 Blood Pressure Position Sitting Blood Pressure Position [Right Arm] Lying Lying Pulse Oximetry 96 97 96 Oxygen Delivery Method Room Air Room Air Room Air Sepsis Recent Fever Within 48 Hours No Sepsis New/Unexplained Change in Mental Status N/A Sepsis Action Taken by Nursing No Action Required Laboratory Data Result diagrams: 04/13/22 01:03 04/13/22 01:03 Lab Results 04/13/22 04/13/22 04/13/22 Range/Units 01:03 01:03 01:03 WBC 4.77 L (4.8-10.8) K/ul RBC 4.21 L (4.63-6.08) M/uL Hgb 13.7 L (14.0-18.0) g/dl Hct 38.9 L (40.1-51.0) % MCV 92.4 (80.0-100.0) fL MCH 32.5 (25.0-34.0) pg MCHC 35.2 (32.0-36.0) g/dL RDW Std Deviation 42.8 (36.4-46.3) fL RDW Coeff of Mickey 12.8 (11.5-14.5) % Plt Count 147 (130-400) K/uL MPV 8.9 L (9.4-12.4) fL Immature Gran % (Auto) 0.2 % Neut % (Auto) 57.4 % Lymph % (Auto) 29.4 % Jerauld % (Auto) 10.9 % Eos % (Auto) 1.7 % Baso % (Auto) 0.4 % Neut # (Auto) 2.74 (1.4-6.5) K/uL Lymph # (Auto) 1.40 (1.2-3.4) K/uL Jerauld # (Auto) 0.52 (0.24-0.82) K/uL Eos # (Auto) 0.08 (0-0.50) K/uL Baso # (Auto) 0.02 (0-0.2) K/uL Immature Gran # (Auto) 0.01 (0.00-0.02) K/uL PT 24.0 H (9.0-12.0) Seconds INR 2.4 H (0.9-1.1) Sodium 134 L (136-145) mmol/L Potassium 4.5 (3.5-5.1) mmol/L Chloride 102 (98-107) mmol/L Carbon Dioxide 24 (21-32) mmol/L Anion Gap 8 (3-11) BUN 18 (6-23) mg/dl Creatinine 1.06 (0.6-1.4) mg/dl Est Cr Clr Drug Dosing 57.7 ml/min Est GFR ( Amer) 75.4 ml/min Est GFR (Non-Af Amer) 65.0 ml/min BUN/Creatinine Ratio 17.0 (10-20) Glucose 111 H (70-99(Fasting)) mg/dl Calcium 8.9 (8.5-10.1) mg/dl Magnesium 1.6 L (1.7-2.4) mg/dl Total Bilirubin 0.6 (0.2-1.0) mg/dl Direct Bilirubin 0.1 (0-0.2) mg/dl AST 39 (13-39) U/L ALT 58 H (7-52) U/L Alkaline Phosphatase 110 H (34-104) U/L Troponin I High Sens 14.2 (0-20) pg/ml Total Protein 6.7 (6.0-8.3) gm/dl Albumin 3.7 (3.4-5.0) gm/dl Lipase 31 (11-82) U/L SARS-CoV-2, RNA, NAAT (NEGATIVE) 04/13/22 Range/Units 02:14 WBC (4.8-10.8) K/ul RBC (4.63-6.08) M/uL Hgb (14.0-18.0) g/dl Hct (40.1-51.0) % MCV (80.0-100.0) fL MCH (25.0-34.0) pg MCHC (32.0-36.0) g/dL RDW Std Deviation (36.4-46.3) fL RDW Coeff of Mickey (11.5-14.5) % Plt Count (130-400) K/uL MPV (9.4-12.4) fL Immature Gran % (Auto) % Neut % (Auto) % Lymph % (Auto) % Jerauld % (Auto) % Eos % (Auto) % Baso % (Auto) % Neut # (Auto) (1.4-6.5) K/uL Lymph # (Auto) (1.2-3.4) K/uL Jerauld # (Auto) (0.24-0.82) K/uL Eos # (Auto) (0-0.50) K/uL Baso # (Auto) (0-0.2) K/uL Immature Gran # (Auto) (0.00-0.02) K/uL PT (9.0-12.0) Seconds INR (0.9-1.1) Sodium (136-145) mmol/L Potassium (3.5-5.1) mmol/L Chloride (98-107) mmol/L Carbon Dioxide (21-32) mmol/L Anion Gap (3-11) BUN (6-23) mg/dl Creatinine (0.6-1.4) mg/dl Est Cr Clr Drug Dosing ml/min Est GFR ( Amer) ml/min Est GFR (Non-Af Amer) ml/min BUN/Creatinine Ratio (10-20) Glucose (70-99(Fasting)) mg/dl Calcium (8.5-10.1) mg/dl Magnesium (1.7-2.4) mg/dl Total Bilirubin (0.2-1.0) mg/dl Direct Bilirubin (0-0.2) mg/dl AST (13-39) U/L ALT (7-52) U/L Alkaline Phosphatase (34-104) U/L Troponin I High Sens (0-20) pg/ml Total Protein (6.0-8.3) gm/dl Albumin (3.4-5.0) gm/dl Lipase (11-82) U/L SARS-CoV-2, RNA, NAAT NEGATIVE (NEGATIVE) Administered Medications Discontinued Medications Fentanyl Citrate (Fentanyl Citrate 100 Mcg/2 Ml Vial) 50 mcg IV NOW STA Stop: 04/13/22 00:54 Last Admin: 04/13/22 01:03 Dose: 50 mcg Documented By: Ondansetron HCl (Ondansetron Inj 2 Mg/Ml 2 Ml Vial) 4 mg IV NOW STA Stop: 04/13/22 00:54 Last Admin: 04/13/22 01:03 Dose: 4 mg Documented By: Imaging Data Radiologist's Impression: KUB X-Ray 04/12/22 21:55 KUB CLINICAL HISTORY: Constipation. FINDINGS: 2 AP supine abdominal radiographs are correlated with abdominal CT dated 11/21/2021. There is a nonobstructed abdominal bowel gas pattern. Moderate fecal retention is seen throughout the colon. No evidence of intraperitoneal free air is seen on these supine images. There is advanced atherosclerotic calcification of the iliac and femoral arteries. No abnormal abdominal calcifications are identified. The skeletal structures are osteopenic and appear intact. There is lumbosacral spondylosis. Cardiomegaly is noted in the lower chest. IMPRESSION: Moderate constipation. Electronically signed by: Saleem Doll M.D. 04/13/2022 12:43 AM Discharge Plan Visit Data Chief Complaint: Constipation Stated Complaint: CONSTIPATION, HEADACHE ED Provider: Tristan Sandoval Discharge Problem: Appendicitis, Abdominal pain, lower Forms Stand Alone Forms: On License Of [facility] Prescriptions Prescriptions: No Action atorvastatin 40 mg tablet 40 mg PO HS Qty: 90 3RF warfarin 3 mg tablet 3 mg PO .COMPLEX Qty: 120 3RF Protocol: Dose Management Condition: Friday Dose/Route: 3 mg Instruction: 1 x 3 mg tablet Condition: Friday Dose/Route: 4.5 mg Instruction: 1.5 x 3 mg tablets Condition: Friday Dose/Route: 3 mg Instruction: 1 x 3 mg tablet Condition: Friday Dose/Route: 3 mg Instruction: 1 x 3 mg tablet Condition: Dose/Route: 4.5 mg Instruction: 1.5 x 3 mg tablets Condition: Friday Dose/Route: 3 mg Instruction: 1 x 3 mg tablet Condition: Friday Dose/Route: 3 mg Instruction: 1 x 3 mg tablet Protocol Text: Adjustment Start Date: Friday04/08/22 INR Value: 2.1 INR Date: 04/08/22 Recheck Date: 04/15/22 Rx Instructions: 3 mg PO //Fri///Sun; 4.5 mg PO Sun carvedilol 6.25 mg tablet 6.25 mg PO BID Qty: 180 3RF Rx Instructions: must administer with a meal/food amlodipine 10 mg tablet 10 mg PO DAILY Qty: 90 3RF amiodarone 200 mg tablet 200 mg PO QAM Qty: 90 3RF metformin 500 mg tablet 500 mg PO BID Qty: 180 3RF Lupron Depot (6 Month) 45 mg syringe kit 45 mg IM Q24W Qty: 1 0RF bupropion HCl 150 mg tablet extended release 24 hr 150 mg PO QAM Qty: 90 3RF lisinopril 10 mg tablet 10 mg PO BID Qty: 60 3RF (DME) OneTouch Ultra Blue Test Strip Strip See Rx Instructions .ROUTE .MEDSUPPLY Qty: 100 3RF Rx Instructions: TEST BLOOD SUGAR ONCE A DAY & NEEDED docusate sodium 100 mg capsule 200 mg PO BID senna 8.6 mg capsule 17.2 mg PO BID latanoprost 0.005 % drops 1 drp OPB HS aspirin [Chrisitne Low Dose Aspirin] 81 mg Tablet,Delayed Release (Dr/Ec) 81 mg PO QAM Label Comments: ON HOLD FOR SURGERY mecobalamin (vitamin B12) 1,000 mcg tablet,chewable 1,000 mcg PO QAM warfarin 3 mg tablet 4.5 mg PO Protocol: Dose Management Condition: Friday Dose/Route: 3 mg Instruction: 1 x 3 mg tablet Condition: Friday Dose/Route: 4.5 mg Instruction: 1.5 x 3 mg tablets Condition: Friday Dose/Route: 3 mg Instruction: 1 x 3 mg tablet Condition: Friday Dose/Route: 3 mg Instruction: 1 x 3 mg tablet Condition: Dose/Route: 4.5 mg Instruction: 1.5 x 3 mg tablets Condition: Friday Dose/Route: 3 mg Instruction: 1 x 3 mg tablet Condition: Friday Dose/Route: 3 mg Instruction: 1 x 3 mg tablet Protocol Text: Adjustment Start Date: Friday04/08/22 INR Value: 2.1 INR Date: 04/08/22 Recheck Date: 04/15/22 Referrals Referrals: Daniel Mariscal MD [Primary Care Provider] - : Appendicitis Qualifiers: Appendicitis type: acute appendicitis Acute appendicitis type: unspecified acute appendicitis type Qualified Code(s): K35.80 - Unspecified acute appendicitis
--- NOTE | 2022-04-13 00:44 | XRay Report ---
KUB CLINICAL HISTORY: Constipation. FINDINGS: 2 AP supine abdominal radiographs are correlated with abdominal CT dated 11/21/2021. There i s a nonobstructed abdominal bowel gas pattern. Moderate fecal retention is seen throughout the colon. No evidence of intraperitoneal free air is seen on these supine images. There is advanced atheroscle rotic calcification of the iliac and femoral arteries. No abnormal abdominal calcifications are ident ified. The skeletal structures are osteopenic and appear intact. There is lumbosacral spondylosis. Ca rdiomegaly is noted in the lower chest. IMPRESSION: Moderate constipation. Electronically signed by: Saleem Doll M.D. 04/13/2022 12:43 AM
[2022-04-13] MEDS ORDERED: ONDANSETRON INJ 2 MG/ML 2 ML VIAL IV STA (00:53)
[2022-04-13] MEDS ORDERED: fentaNYL citrate 100 MCG/2 ML VIAL IV STA (00:53)
[2022-04-13 01:20] LABS: Basophils # (auto) 0.02 K/uL (0-0.2); Basophils % (auto) 0.4 %; Eosinophils # (auto) 0.08 K/uL (0-0.50); Eosinophils % (auto) 1.7 %; Hematocrit (blood only) 38.9 % (40.1-51.0); Hemoglobin 13.7 g/dl (14.0-18.0); Immature Granulocytes # (auto) 0.01 K/uL (0.00-0.02); Immature Granulocytes % (auto) 0.2 %; Lymphocytes % (auto) 29.4 %; Mean Corpuscular Hemoglobin 32.5 pg (25.0-34.0); Mean Corpuscular Hgb Conc 35.2 g/dL (32.0-36.0); Mean Corpuscular Volume 92.4 fL (80.0-100.0); Mean Platelet Volume 8.9 fL (9.4-12.4); Monocytes # (auto) 0.52 K/uL (0.24-0.82); Monocytes % (auto) 10.9 %; Neutrophils # (auto) 2.74 K/uL (1.4-6.5); Neutrophils % (auto) 57.4 %; Platelet Count 147 K/uL (130-400); RDW Coefficient of Variation 12.8 % (11.5-14.5); RDW Standard Deviation 42.8 fL (36.4-46.3); Red Blood Count 4.21 M/uL (4.63-6.08); White Blood Count 4.77 K/ul (4.8-10.8)
[2022-04-13 01:38] LABS: INR 2.4 (0.9-1.1)
[2022-04-13 01:50] LABS: Troponin I High Sensitivity 14.2 pg/ml (0-20)
[2022-04-13 01:56] LABS: Albumin Level 3.7 gm/dl (3.4-5.0); Bilirubin Direct 0.1 mg/dl (0-0.2); Bilirubin,Total 0.6 mg/dl (0.2-1.0); Calcium 8.9 mg/dl (8.5-10.1); Creatinine Clr Calc Pharmacy 57.7 ml/min; Est GFR (African American) 75.4 ml/min; Magnesium 1.6 mg/dl (1.7-2.4); Potassium 4.5 mmol/L (3.5-5.1); Total Protein 6.7 gm/dl (6.0-8.3)
--- NOTE | 2022-04-13 02:27 | Surgery Consultation ---
Date of Consultation April 13, 2022 Assessment & Plan (1) Abdominal pain: I discussed the case with treating emergency room physician and due to the patient's clinical presentation as well as CT scan findings he is having the patient admitted on the hospitalist service. From a surgical perspective we recommend proceeding as follows: The patient does not have convincing evidence of appendicitis radiographically or clinically (no peritoneal signs on abdominal exam, no fever, no nausea or vomiting, no elevated white blood cell count), however it would be prudent to observe the patient in the hospital Serial exams will be employed We will keep the patient n.p.o. We will observe the patient without the use of antibiotics to see if his abdominal exam improves or if he declares himself Recommend holding Coumadin until his ascertain whether or not the patient would require any surgical procedure As the patient be n.p.o. would recommend gentle hydration with IV fluids Recommend following serial labs Additional recommendations be forthcoming based on how he responds to the above- noted plan History of Present Illness Reason for Consultation: Abdominal pain History of Present Illness This is an 81-year-old male who presented to [facility] emergency department secondary to constipation. Patient notes that he has longstanding issues with constipation but he notes that his gotten progressively worse over the past several days. He notes he was able to have a very small bowel movement yesterday but was unable to move his bowels today and he has been straining considerably in order to have a bowel movement without any success. In addition to the constipation the patient says that he is having some lower abdominal pain radiating to his rectum. He notes that the pain is not related to any meals. He denies any palliative or provocative factors. He notes that he did try taking a fleets enema without any success or improvement. I asked the patient further about his abdominal pain and he does note that he gets similar abdominal pain from time to time and this is not what prompted his visit to the emergency department, but rather issues with constipation prompted his visit. With his current presentation he denies any fevers, shakes, or chills. He has not had any nausea or vomiting. He notes that he has never had an abdominal surgery before. He notes that his most recent oral intake was approximately 3:00 PM on 04/12/2022. It is noteworthy to mention that the patient was hospitalized approximately 2 months ago secondary to an intracranial hemorrhage that was felt to be due to high blood pressure with concomitant Coumadin use. Patient notes that during this episode his Coumadin was held but has subsequently been restarted recently as he has had multiple DVTs. Patient also notes that he does have a history of atrial fibrillation as well as hypertension but he denies any prior history of heart attack. Since arrival to the emergency department the patient has had labs and imaging which I independently reviewed. CT scan of the patient's head showed no evidence of acute stroke. No evidence of hemorrhage or midline shift was noted. Patient also had a CT scan of the abdomen and pelvis that showed minimal periappendiceal inflammatory change in the right lower quadrant. The patient's appendix was commented to be otherwise normal. Labs included a CBC were white blood cell count was nonelevated at 4.77. Hemoglobin and hematocrit were 13.7 and 38.9. Platelet count was within the normal range. His INR is 2.4. Chemistry profile showed sodium was 134 with a normal potassium. BUN and creatinine were both normal. The patient's lipase was nonelevated. The patient's bilirubin and AST were normal. ALT was slightly elevated at 58 with a slight elevation of the alkaline phosphatase at 110. At the time of my interview the patient was resting comfortably in bed he was in no distress. Allergies Allergy/AdvReac Type Severity Reaction Status Date / Time meperidine AdvReac Intermediate OVER-SEDATION, Verified 04/13/22 05:30 N/V W/ SYNCOPE Home Medications Medication Instructions Recorded Confirmed Type latanoprost 0.005 % eye drops 1 drp OPB HS 06/28/18 04/13/22 History aspirin 81 mg tablet,delayed 81 mg PO QAM 12/11/18 04/13/22 History release (Christine Low Dose Aspirin) mecobalamin (vitamin B12) 1,000 1,000 mcg PO QAM 03/21/20 04/13/22 History mcg chewable tablet leuprolide acetate (6 month) 45 mg 45 mg IM Q24W #1 ea 04/25/20 04/13/22 Rx intramuscular syringe kit (Lupron Depot) warfarin 3 mg tablet 4.5 mg PO TH 06/18/21 04/13/22 History atorvastatin 40 mg tablet 40 mg PO HS #90 tabs 07/23/21 04/13/22 Rx warfarin 3 mg tablet 3 mg PO .COMPLEX #120 tabs 08/24/21 04/13/22 Rx blood sugar diagnostic #100 ea 02/25/22 04/13/22 Rx lisinopril 10 mg tablet 10 mg PO BID #60 tabs 02/25/22 04/13/22 Rx carvedilol 6.25 mg tablet 6.25 mg PO BID #180 tabs 03/01/22 04/13/22 Rx bupropion HCl 150 mg 24 hr tablet, 150 mg PO QAM #90 tabs 03/11/22 04/13/22 Rx extended release amlodipine 10 mg tablet 10 mg PO DAILY #90 tabs 03/12/22 04/13/22 Rx amiodarone 200 mg tablet 200 mg PO QAM #90 tabs 03/18/22 04/13/22 Rx docusate sodium 100 mg capsule 200 mg PO BID 03/27/22 04/13/22 History sennosides 8.6 mg capsule (senna) 17.2 mg PO BID constipation 03/27/22 04/13/22 History metformin 500 mg tablet 500 mg PO BID #180 tabs 04/08/22 04/13/22 Rx Patient History Medical History (Updated 04/13/22 @ 05:02 by Dakota Gray MD) Acute spont intraparenchymal hemorrhage assoc w/ hypertension Antithrombin III deficiency FOLLOWS PCP > DR. TAN/LOC - ON COUMADIN Blurred vision, bilateral Cataract RT/LEFT Constipation Diabetes mellitus type 2 in obese Forgetfulness "RELATED TO AGE" Glaucoma LEFT EYE History of adenomatous polyp of colon History of atrial fibrillation History of hemorrhagic stroke with residual hemiparesis History of prostate cancer History of skin cancer MELANOMA AND BASAL CELL Hx of deep venous thrombosis SEVERAL YEARS AGO, REASON FOR COUMADIN Hx pulmonary embolism WITH DVT ? YEAR "A FEW YEARS AGO" Hyperlipidemia Hypertension Hypertensive heart disease preserved LV function Obstructive sleep apnea no device used (could not tolerate) Osteoarthritis Prostate cancer Refusal of blood transfusions as patient is Scientologist Thoracic ascending aortic aneurysm UNSURE ABOUT DX Surgical History History of cardioversion (11/2018) X 4--last 06/22/21 @ [facility] History of colonoscopy History of local excision of skin lesion MULTIPLE REMOVAL History of nasal septoplasty multiple-with Celon turbinate reduction History of tooth extraction Hx of colonoscopy Hx of prostate biopsy Family History Mother Venous embolism and thrombosis of deep vessels of lower extremity Cancer Father Stroke syndrome Other No family history of adverse response to anesthesia No family history of bleeding disorder No pertinent family history Denies family history of Ovarian cancer Prostate cancer Coronary heart disease Alzheimer disease Bipolar disorder Breast cancer COPD (chronic obstructive pulmonary disease) Colorectal cancer Asthma Social History Smoking Status: Never smoker Second Hand Exposure: No; Do You Dip or Chew Tobacco: No; Hx Alcohol Use: No Hx Substance Use: No Preferred Language: Nauruan Communication Ability: Effective Visual Impairment: No Limitations Hearing Ability: Normal Cutlet Maker Pork Required: No Beliefs That Will Affect Care: None marital status: Current Living Situation: Spouse current occupational status: retired current occupation: Worked at [employer] How many Children do You have: 2 Other Information That Helps Us Care for You: No Feels Safe at Home: Yes Safety Concerns: Feels Safe At This Time Childhood Exposure to Second-Hand Smoke: No caffeine: No during the past year weight has: remained stable Dental Care, Regularly: Yes Physical Activity Frequency: Does not Exercise Seatbelt Use: always Sunscreen Use: No Assistive Devices: Glasses Review of Systems Constitutional: no fever and no chills Eyes: no eye pain Ear, Nose, Mouth, Throat: no ear pain Respiratory: no cough and no dyspnea Cardiovascular: no chest pain Gastrointestinal: as per Subjective / HPI, + abdominal pain and + constipation; no nausea and no vomiting Genitourinary: no dysuria Musculoskeletal: no back pain Integumentary: no rash Neurologic: no localized weakness Physical Exam Constitutional: WD/WN, vitals as above Eyes: no conjunctival abnormality ENMT: Ears: no external ear abnormality Neck: trachea midline Respiratory: normal respiratory effort; no respiratory distress and no labored breathing Cardiovascular: Rate/Rhythm: regular rate and regular rhythm Vessels: dorsalis pedis pulses present and radial pulses present Gastrointestinal (Abdomen): Abdomen is soft and nonrigid with minimal distention. There is no rebound tenderness or guarding. I cannot appreciate any masses or hernias. Patient did have mild tenderness with palpation in his lower abdomen from the left lower quadrant to the right lower quadrant. Musculoskeletal: No calf tenderness to Skin: no rashes Neurologic: moves all extremities Results & Data ([facility]) Vital Signs (Past 12 Hours) Vital Signs Temp Pulse Pulse Resp BP BP Pulse Ox 04/13/22 02:15 67 18 175/94 H 96 04/13/22 00:29 72 18 171/87 H 97 04/12/22 19:42 36.3 C L 83 18 106/73 96 O2 Del Method 04/13/22 02:15 Room Air 04/13/22 00:29 Room Air 04/12/22 19:42 Room Air PG Care Time/CCT Total # of Minutes Spent Total Time Spent with Patient: Total time spent is greater than 50% in coordination of care (as documented) at patient's floor/unit and/or counseling patient: Coding Level of Care Code 07477 Inpt Consult Level 5 Diagnoses Abdominal pain R10.9
--- NOTE | 2022-04-13 02:41 | History & Physical Report ---
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 - per my read, CT abd w/ moderate+ stool burden - CT abd statrad w/ mention of minimal periappendiceal inflammatory change w/ otherwise normal appendix; will await official read before aggressive bowel regimen Miralax (34gm BID scheduled), as laxatives can worsen acute appendicitis - gen surg consulted; will follow clinically for now. hold off on abx. hold Coumadin. serial abd exams. bowel rest w/ gentle IV fluids. - exam w/o rebound, guarding, or peritoneal signs - clinically not septic - of note, brain hemorrhage was reportedly in setting of excessive bowel straining (2) Diabetes mellitus type 2 in obese: Plan: - A1c 6.2 09/2021, at goal. Recheck in AM. - check bsg achs. loose sliding scale w/o basal. hold home metformin. (3) Hyperlipidemia: Plan: - continue home atorvastatin 40 qhs (4) History of hemorrhagic stroke with residual hemiparesis: Plan: - head CT statrad mentions focus of encephalomalacia adjacent to the right basal ganglia compatible with the patient's previouly identified hemorrhage - no acute clinical findings (5) Antithrombin III deficiency: Plan: - hx of PE and recurrent DVTs - hold home Warfarin temporarily while assessing whether would need treatment for possible appendicitis. INR 2.4. - 01/2022 intracranial hemorrhage noted. Defer heparin drip for now. SQ heparin for dvt ppx. (6) Hx of deep venous thrombosis: Plan: - see above (7) Anxiety: Plan: - continue home bupropion (8) Paroxysmal atrial fibrillation: Plan: - continue home amiodarone (9) Hypertension: Plan: - continue home Coreg (10) Prostate cancer: Plan: - receives Lupron as outpatient (11) Glaucoma: Plan: - continue home latanoprost Plan FEN/GI: NPO. 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 For several weeks, he has had bilt lower abd pain, predominantly while straining during bowel movement. He has had the same the last few days, but of greater severity. Denies fever/chills, N/V, urinary symptoms, bloody stool, melena. He has had only small BMs in the past week. He took laxative, stool softener, and prune juice w/o relief. He had small BM yesterday. He used Fleet enema at home w/o relief. States fluid intake has not been the greatest. Currently, pain is mild, 3-4/10; this is after the IV Fentanyl. is present at bedside. She states patient has had mild L facial and L extremity residual weakness from his stroke and that his speech is slightly dysarthric as well. 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 ED course: Zofran, Fentanyl 50mcg, soap suds enema. wbc 4.77. Hb 13.7. Na 134. K 4.5. Cr 1.06 (baseline). Mg 1.6. Lipase 31. Allergies Allergy/AdvReac Type Severity Reaction Status Date / Time meperidine AdvReac Intermediate OVER-SEDATION, Verified 04/16/22 14:01 N/V W/ SYNCOPE Home Medications Medication Instructions Recorded Confirmed Type latanoprost 0.005 % eye drops 1 drp OPB HS 06/28/18 04/16/22 History aspirin 81 mg tablet,delayed 81 mg PO QAM 12/11/18 04/16/22 History release (Christine Low Dose Aspirin) mecobalamin (vitamin B12) 1,000 1,000 mcg PO QAM 03/21/20 04/16/22 History mcg chewable tablet leuprolide acetate (6 month) 45 mg 45 mg IM Q24W #1 ea 04/25/20 04/16/22 Rx intramuscular syringe kit (Lupron Depot) warfarin 3 mg tablet 4.5 mg PO TH 06/18/21 04/16/22 History atorvastatin 40 mg tablet 40 mg PO HS #90 tabs 07/23/21 04/16/22 Rx warfarin 3 mg tablet 3 mg PO .COMPLEX #120 tabs 08/24/21 04/16/22 Rx blood sugar diagnostic #100 ea 02/25/22 04/16/22 Rx lisinopril 10 mg tablet 10 mg PO BID #60 tabs 02/25/22 04/16/22 Rx carvedilol 6.25 mg tablet 6.25 mg PO BID #180 tabs 03/01/22 04/16/22 Rx bupropion HCl 150 mg 24 hr tablet, 150 mg PO QAM #90 tabs 03/11/22 04/16/22 Rx extended release amlodipine 10 mg tablet 10 mg PO DAILY #90 tabs 03/12/22 04/16/22 Rx amiodarone 200 mg tablet 200 mg PO QAM #90 tabs 03/18/22 04/16/22 Rx metformin 500 mg tablet 500 mg PO BID #180 tabs 04/08/22 04/16/22 Rx polyethylene glycol 3350 17 gram 17 g PO BID #30 ea 04/15/22 04/16/22 Rx oral powder packet (Miralax) Past Med/Surg History Medical History (Updated 04/18/22 @ 00:09 by Laith Garner) Acute spont intraparenchymal hemorrhage assoc w/ hypertension Antithrombin III deficiency FOLLOWS PCP > DR. TAN/LOC - ON COUMADIN Blurred vision, bilateral Cataract RT/LEFT Constipation Diabetes mellitus type 2 in obese Forgetfulness "RELATED TO AGE" Glaucoma LEFT EYE History of adenomatous polyp of colon History of atrial fibrillation History of hemorrhagic stroke with residual hemiparesis History of prostate cancer History of skin cancer MELANOMA AND BASAL CELL Hx of deep venous thrombosis SEVERAL YEARS AGO, REASON FOR COUMADIN Hx pulmonary embolism WITH DVT ? YEAR "A FEW YEARS AGO" Hyperlipidemia Hypertension Hypertensive heart disease preserved LV function Obstructive sleep apnea no device used (could not tolerate) Osteoarthritis Prostate cancer Refusal of blood transfusions as patient is Rastafarian Thoracic ascending aortic aneurysm UNSURE ABOUT DX Surgical History History of cardioversion (11/2018) X 4--last 06/22/21 @ [facility] History of colonoscopy History of local excision of skin lesion MULTIPLE REMOVAL History of nasal septoplasty multiple-with Celon turbinate reduction History of tooth extraction Hx of colonoscopy Hx of prostate biopsy Family History Mother Venous embolism and thrombosis of deep vessels of lower extremity Cancer Father Stroke syndrome Other No family history of adverse response to anesthesia No family history of bleeding disorder No pertinent family history Denies family history of Ovarian cancer Prostate cancer Coronary heart disease Alzheimer disease Bipolar disorder Breast cancer COPD (chronic obstructive pulmonary disease) Colorectal cancer Asthma Social History Smoking Status: Never smoker Second Hand Exposure: No; Hx Alcohol Use: No Hx Substance Use: No Preferred Language: Thai Communication Ability: Effective Visual Impairment: No Limitations Hearing Ability: Normal Decorating Equipment Setter Required: No Beliefs That Will Affect Care: None marital status: Current Living Situation: Spouse current occupational status: retired current occupation: Worked at [employer] How many Children do You have: 2 Feels Safe at Home: Yes Childhood Exposure to Second-Hand Smoke: No caffeine: No during the past year weight has: remained stable Dental Care, Regularly: Yes Physical Activity Frequency: Does not Exercise Seatbelt Use: always Sunscreen Use: No Assistive Devices: None Review of Systems Review of Systems: All systems reviewed & are unremarkable except as noted in HPI & below Physical Exam Physical Exam: General: Grossly A&O. NAD. Cooperative. Slight fatigue, s/p fentanyl. HEENT: Atraumatic, normocephalic. EOMI Pulm: CTAB. -wheezes, -rales, -rhonchi. No accessory muscle use. Cardiac: RRR, -mrg. Abdominal: Soft. Obese abd. Mild-mod bilat lower abd ttp, no rebound or rigidity. Back: No cva ttp. Integ: Warm, dry, intact Neuro: Normal strength and sensation of extremities. Equal medical biller strength. 5+/5 bilat upper and lower extremity strength. Slight dysarthria. Results & Data Results [facility]) Vital Signs (Past 12 Hours) Vital Signs Temp Pulse Pulse Resp BP BP Pulse Ox 04/13/22 02:15 67 18 175/94 H 96 04/13/22 00:29 72 18 171/87 H 97 04/12/22 19:42 36.3 C L 83 18 106/73 96 O2 Del Method 04/13/22 02:15 Room Air 04/13/22 00:29 Room Air 04/12/22 19:42 Room Air Laboratory Results Cardiac Enzymes 04/13/22 Range/Units 01:03 AST 39 (13-39) U/L Troponin I High Sens 14.2 (0-20) pg/ml Coagulation 04/13/22 Range/Units 01:03 PT 24.0 H (9.0-12.0) Seconds CBC 04/13/22 Range/Units 01:03 WBC 4.77 L (4.8-10.8) K/ul RBC 4.21 L (4.63-6.08) M/uL Hgb 13.7 L (14.0-18.0) g/dl Hct 38.9 L (40.1-51.0) % Plt Count 147 (130-400) K/uL Neut # (Auto) 2.74 (1.4-6.5) K/uL Lymph # (Auto) 1.40 (1.2-3.4) K/uL Prentiss # (Auto) 0.52 (0.24-0.82) K/uL Eos # (Auto) 0.08 (0-0.50) K/uL Baso # (Auto) 0.02 (0-0.2) K/uL Comprehensive Metabolic Panel 04/13/22 Range/Units 01:03 Sodium 134 L (136-145) mmol/L Potassium 4.5 (3.5-5.1) mmol/L Chloride 102 (98-107) mmol/L Carbon Dioxide 24 (21-32) mmol/L BUN 18 (6-23) mg/dl Creatinine 1.06 (0.6-1.4) mg/dl Glucose 111 H (70-99(Fasting)) mg/dl Calcium 8.9 (8.5-10.1) mg/dl Direct Bilirubin 0.1 (0-0.2) mg/dl AST 39 (13-39) U/L ALT 58 H (7-52) U/L Alkaline Phosphatase 110 H (34-104) U/L Total Protein 6.7 (6.0-8.3) gm/dl Albumin 3.7 (3.4-5.0) gm/dl Intake and Output 04/12/22 04/12/22 04/13/22 14:59 22:59 06:59 Other: Weight 87.3 kg Weight Measurement Method Chair Scale Patient Weight 04/13/22 06:59 Weight 87.3 kg Diagnostic Findings KUB X-Ray 04/12/22 21:55 KUB CLINICAL HISTORY: Constipation. FINDINGS: 2 AP supine abdominal radiographs are correlated with abdominal CT dated 11/21/2021. There is a nonobstructed abdominal bowel gas pattern. Moderate fecal retention is seen throughout the colon. No evidence of intraperitoneal free air is seen on these supine images. There is advanced atherosclerotic calcification of the iliac and femoral arteries. No abnormal abdominal calcifications are identified. The skeletal structures are osteopenic and appear intact. There is lumbosacral spondylosis. Cardiomegaly is noted in the lower chest. IMPRESSION: Moderate constipation. Electronically signed by: Saleem Doll M.D. 04/13/2022 12:43 AM statrad preliminary findings only - see final report for complete findings CT HEAD: Comparison is made to a prior CT examination dated 02/09/22. There is a focus of encephalomalacia adjacent to the right basal ganglia compatible with the patient's previouly identified hemorrhage. There is no midline shift or acute hemorrhage identified on this examination. No convincing evidence for acute transcortical infarct. CT ABDOMEN & PELVIS Without Contrast: Comparison is made to a prior study dated 11/21/21. There is minimal periappendiceal inflammatory change with an otherwise normal appendix (image 39 series 501). Please correlate with patient's abdominal exam. There is extensive atherosclerotic disease of the aorta and its major branch vessels. There is advanced degenerative disease of the lumbar spine. Radiologist Ayden Murray MD. Study ready at 0133 and initial results transmitted at 0137. Code Status & VTE Plan Code Status full VTE Prophylaxis Plan VTE Prophylaxis will be ordered: Yes Supervising Physician Co-Signing Physician Notes Patient seen and examined, chart reviewed, case discussed with Dr. Gray and I agree with the assessment and plan as above. IN brief, patient is an 82yo male presenting with constipation and abdominal pain. On exam he is afebrile, HD stable, NAD Dysarthria present, milld Mild abdominal discomfort with palpation, no rebound/guarding/peritonitis Remainder of exam is unremarkable labs and images reviewed Assessment/Plan -Awaiting CT results re: possible appendicitis. Appreciate Surgery input -IVF, pain control, anti-emetics -Bowel regimen -Remainder as above Resident Activity Tracking Resident Involvement: Resident Care Provided Care Provided: Adult Hospital Medicine (1) Constipation Constipation type: unspecified constipation type Qualified Code(s): K59.00 - Constipation, unspecified
[2022-04-13] MEDS ORDERED: DEXTROSE 50% 50 ML SYRINGE IV PRN (05:25)
[2022-04-13] MEDS ORDERED: GLUCAGON FOR INJ 1 MG VIAL SQ PRN (05:25)
[2022-04-13] MEDS ORDERED: GLUCOSE 40% GEL 15 GM TUBE PO PRN (05:25)
[2022-04-13] MEDS ORDERED: ondansetron HCL 4 MG in DEXTROSE 5% 50 ML IV PRN (05:25)
[2022-04-13] MEDS ORDERED: ACETAMINOPHEN 500 MG TAB PO PRN (05:25)
[2022-04-13] MEDS ORDERED: CARBOHYDRATES FOR HYPOGLYCEMIA PO PRN (05:25)
[2022-04-13] MEDS ORDERED: GLUCOSE 10 TAB/TUBE PO PRN (05:25)
[2022-04-13] MEDS ORDERED: ONDANSETRON INJ 2 MG/ML 2 ML VIAL IV PRN (05:33)
[2022-04-13] MEDS: INSULIN ASPART PER UNIT SC SCH ×4 (06:15→21:35)
[2022-04-13] MEDS: LACTATED RINGER'S 1,000 ML IV SCH ×2 (06:36→16:41)
[2022-04-13] MEDS: MAGNESIUM SULFATE / D5W 1 GM/100 ML BAG IV SCH ×3 (06:36→10:40)
--- NOTE | 2022-04-13 06:44 | Surgery Progress Note ---
Date of Service April 13, 2022 Assessment & Plan (1) Abdominal pain: Plan: The patient has been admitted on the hospitalist service. CT scan at time of admission showed that there was minimal inflammation in the right lower quadrant near the appendix, however the appendix appeared normal in appearance. Patient has been admitted on the hospitalist service for observation. We will continue to proceed as follows: Continue n.p.o. status Continue hydration with IV fluids A.m. labs have been ordered which are pending. We will follow for the results of these. Of note, the patient does take Coumadin which has been held and an INR has been included with his a.m. labs. We will continue to follow serial exams We will continue observe the patient without antibiotics for the present time. The patient does note that his pain is no worse this morning, so we will continue to follow along with the plan noted above and determine next best course of action based on his a.m. lab results as well as subsequent exams. pt currently denying RLQ pain. CT with no evidence of acute appendicitis wbc normal pain likely secondary to constipation...will start clears. ok to give laxatives no plans for any surgical intervention. will continue to follow along while pt here. Admission and Anticipated Discharge Date Admission Date: April 13, 2022 Subjective At the time of my exam this morning patient was sleeping in bed. He was easily arousable. He notes that since admission he has passed a small amount of flatus but has not had a bowel movement. He denies any nausea or vomiting. Patient continues to report abdominal pain on his lower abdomen which appears to be most prominent in the right lower quadrant. He does note that his pain does not seem to be any worse but has not really improved as well. Physical Exam Gastrointestinal (Abdomen): Bowel sounds are hypoactive. Abdomen remains soft and nonrigid with slight distention this morning. There are no signs of peritonitis, rebound tenderness, or guarding. Pain is noted with palpation in the left lower quadrant and to a greater degree the right lower quadrant. Results & Data ([facility]) Vital Signs (Past 12 Hours) Vital Signs Temp Pulse Pulse Resp BP BP Pulse Ox 04/13/22 05:00 36.4 C L 68 18 179/77 H 92 04/13/22 03:36 69 18 167/89 H 96 04/13/22 02:15 67 18 175/94 H 96 04/13/22 00:29 72 18 171/87 H 97 04/12/22 19:42 36.3 C L 83 18 106/73 96 O2 Del Method 04/13/22 05:00 Room Air 04/13/22 03:36 Room Air 04/13/22 02:15 Room Air 04/13/22 00:29 Room Air 04/12/22 19:42 Room Air PG Care Time/CCT Total # of Minutes Spent Total Time Spent with Patient: Total time spent is greater than 50% in coordination of care (as documented) at patient's floor/unit and/or counseling patient: Coding Level of Care Code 32129 Subseq Hosp Care Lvl 2 Diagnoses Abdominal pain R10.9
--- NOTE | 2022-04-13 07:48 | Hospitalist Progress Note ---
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 Abdominal pain sec to worsening of chronic constipation Chronic constipation - of note, brain hemorrhage (01/2022) was reportedly in setting of excessive bowel straining - KUB showing moderate constipation - CTAP showed no acute processes, neg for acute appendicitis, moderate stool in colon, none in rectum - per gen surg, no surgical indications, no abx, follow clinically - added back home regimen of docusate 200 mg BID and senna 17.2 mg BID - in addition, miralax 17 g q4hr - encouraged pt to increase water intake - advanced diet as tolerated DM II - A1c 6.2 09/2021 - goal bsg Range: 120-160 - correction Factor: 40 - check blood sugars ACHS HLD - continue home atorvastatin 40 qhs Hx of hemorrhagic stroke - head CT showed no acute findings and resolution of right sided hematoma - resumed warfarin at 3 mg daily (except 4.5mg taken on ) - check PT/INR tomorrow AM 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 and recurrent DVTs - resume warfarin Hx of DVT - see above Anxiety - continue home bupropion Afib - continue home amiodarone HTN - continue home carvedilol 6.25mg BID, amlodipine 10 mg, lisinopril 10 mg BID Prostate cancer - receives Lupron as outpatient Glaucoma - continue home latanoprost (2) Diabetes mellitus type 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: (3) Hyperlipidemia: (4) History of hemorrhagic stroke with residual hemiparesis: (5) Antithrombin III deficiency: (6) Hx of deep venous thrombosis: (7) Anxiety: (8) Paroxysmal atrial fibrillation: (9) Hypertension: (10) Prostate cancer: (11) Glaucoma: Plan FEN/GI: advanced diet to carb consistent ppx: SCDs, resume warfarin code status: full code dispo: med/surg Admission and Anticipated Discharge Date Admission Date: April 13, 2022 Supervising Physician Co-Signing Physician Notes Resident Physician Supervision Note: I independently interviewed and examined the patient and verified the morgan history and physical, reviewed labs and image studies and agree with resident findings and care plan. 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 This morning, pt is feeling better. He endorses mild lower abdominal that is improved since coming into the hospital. He tells me he has dealt with constipation for a long time. His says that his constipation has worsened after his recent stroke. At home, the pt has been adding an extra dose to his d ocusate and senna which hasn't helped the constipation. Physical Exam Constitutional: NAD. Vitals WNL. Eyes: no conjunctival abnormality Respiratory: CTA bilaterally. No rhonchi, wheezing, or crackles. Non labored breathing. Cardiovascular: RRR. No murmur noted. No LL edema. Gastrointestinal (Abdomen): Mild tenderness upon palpation of right and left lower quadrants. Soft. +BS. No masses noted. Skin: no rashes, warm and dry Psychiatric: Alert. Mood and affect congruent. Results & Data Results & Data ([facility]) Vital Signs (Past 12 Hours) Vital Signs Temp Pulse Pulse Resp BP BP Pulse Ox 04/13/22 05:00 36.4 C L 68 18 179/77 H 92 04/13/22 03:36 69 18 167/89 H 96 04/13/22 02:15 67 18 175/94 H 96 04/13/22 00:29 72 18 171/87 H 97 04/12/22 19:42 36.3 C L 83 18 106/73 96 O2 Del Method 04/13/22 05:00 Room Air 04/13/22 03:36 Room Air 04/13/22 02:15 Room Air 04/13/22 00:29 Room Air 04/12/22 19:42 Room Air Resident Activity Tracking Resident Involvement: Resident Care Provided Care Provided: Adult Hospital Medicine (1) Constipation Constipation type: unspecified constipation type Qualified Code(s): K59.00 - Constipation, unspecified
--- NOTE | 2022-04-13 07:55 | CT Scan Report ---
CT OF THE HEAD WITHOUT CONTRAST CLINICAL HISTORY: headache, recent head bleed COMPARISON STUDY: Head CT February 09, 2022. CT DOSE: 1535.57 mGy.cm TECHNIQUE: Helical axial images of the head were obtained without IV contrast. Automated exposure con trol was utilized for the study. A dose lowering technique was utilized adhering to the principles o f ALARA. FINDINGS: No acute intracranial hemorrhage, midline shift or mass effect is present. Encephalomalacia within the right external capsule representing expected evolution of the hematoma shown on CT of Sep 2021. Suspected old infarct within the left external capsule is unchanged. The ventricular system is unremarkable. The basal cisterns are patent. No extra-axial collections are present. There are no findings to suggest acute dural sinus thrombosis or acute territorial infarct. No significant calvarial abnormalities are present. Visualized portions of the sinuses and mastoid air cells are cl ear. IMPRESSION: No acute intracranial findings. Resolution of the right external capsule hematoma on pebbles or CT. Expected encephalomalacia. ACT 112: Negative or not required by law. Electronically signed by: Ari Silva M.D. 04/13/2022 7:53 AM
--- NOTE | 2022-04-13 08:04 | CT Scan Report ---
CT OF THE ABDOMEN AND PELVIS WITHOUT CONTRAST CLINICAL HISTORY: lower abdominal pain, no BM several days COMPARISON STUDY: CT of the abdomen and pelvis November 21, 2021. TECHNIQUE: Axial images of the abdomen and pelvis were obtained without IV contrast. Images were revi ewed in the axial, sagittal, and coronal planes. Automated exposure control was utilized for the larry dy. A dose lowering technique was utilized adhering to the principles of ALARA. FINDINGS: Lung bases are unremarkable. No pneumatosis, free air or portal venous gas is present. A fe w hypodense hepatic lesions are unchanged. These are benign. Liver is mildly dense. No pneumatosis, f ree air or portal venous gas is present. There is no biliary or pancreatic ductal dilatation. Evaluat ion of the abdomen and pelvis is suboptimal on this unenhanced exam. Spleen, adrenal glands are unrem arkable. Pancreatic glandular atrophy is noted. There is no hydronephrosis. There are no urinary calc bal. Bladder is mildly distended. There is no evidence for a bowel obstruction. Submucosal fat within the appendix is noted. There is no evidence for acute appendicitis. The appearance of the appendix i s unchanged since CT of November 21, 2021. There is no lymphadenopathy or ascites. Moderate amount of sto ol within the colon is noted. There is no significant stool within the rectum. No acute fracture with in the visualized skeletal structures is present. Old L1 compression deformity is unchanged. IMPRESSION: 1. No acute process within the abdomen or pelvis. No evidence for acute appendicitis. This finding wi ll be called/faxed to the ordering provider at time of dictation. 2. No bowel obstruction. Moderate amount of stool within the colon. No stool within the rectum. 3. No urinary calculi or hydronephrosis. ACT 112: Negative or not required by law. Electronically signed by: Ari Silva M.D. 04/13/2022 8:02 AM
[2022-04-13 08:27] LABS: Hematocrit (blood only) 36.5 % (40.1-51.0); Hemoglobin 12.9 g/dl (14.0-18.0); Mean Corpuscular Hemoglobin 32.5 pg (25.0-34.0); Mean Corpuscular Hgb Conc 35.3 g/dL (32.0-36.0); Mean Corpuscular Volume 91.9 fL (80.0-100.0); Mean Platelet Volume 9.3 fL (9.4-12.4); Platelet Count 137 K/uL (130-400); RDW Coefficient of Variation 12.8 % (11.5-14.5); RDW Standard Deviation 42.6 fL (36.4-46.3); Red Blood Count 3.97 M/uL (4.63-6.08); White Blood Count 4.38 K/ul (4.8-10.8)
[2022-04-13 08:40] LABS: INR 2.2 (0.9-1.1); Prothrombin Time 22.7 Seconds (9.0-12.0)
[2022-04-13 08:55] LABS: Alanine Aminotransferase 53 U/L (7-52); Albumin Globulin Ratio 1.4 (0.9-2); Albumin Level 3.6 gm/dl (3.4-5.0); Alkaline Phosphatase 103 U/L (34-104); Anion Gap 6 (3-11); Aspartate Aminotransferase 36 U/L (13-39); BUN Creatinine Ratio 18.4 (10-20); Bilirubin,Total 0.7 mg/dl (0.2-1.0); Blood Urea Nitrogen 16 mg/dl (6-23); C Reactive Protein < 0.50 mg/dl (0-0.5); Calcium 8.4 mg/dl (8.5-10.1); Carbon Dioxide 27 mmol/L (21-32); Chloride 102 mmol/L (98-107); Creatinine Clr Calc Pharmacy 69.8 ml/min; Est GFR (African American) 93.2 ml/min; Est GFR (Non-African American) 80.4 ml/min; Globulin 2.6 gm/dl (2.5-4.0); Glucose 102 mg/dl (70-99(Fasting)); Potassium 4.6 mmol/L (3.5-5.1); Sodium 135 mmol/L (136-145); Total Protein 6.2 gm/dl (6.0-8.3)
[2022-04-13] MEDS ORDERED: POLYETHYLENE (MIRALAX) 17 GM PACK PO SCH (09:00)
[2022-04-13] MEDS ORDERED: PNEUMOCOCCAL POLYSACCHARIDES 25 MCG/0.5 ML VIAL/SYR IM ONE (09:00)
[2022-04-13] MEDS: buPROPion XL 150 MG TABCR PO SCH (09:37)
[2022-04-13] MEDS: SENNA 8.6 MG TAB PO SCH ×2 (09:37→20:02)
[2022-04-13] MEDS: carvediloL 6.25 MG TAB PO SCH ×2 (09:37→20:03)
[2022-04-13] MEDS: DOCUSATE SODIUM 100 MG CAP PO SCH ×2 (09:37→20:04)
[2022-04-13] MEDS: AMIODARONE 200 MG TAB PO SCH (09:37)
[2022-04-13] MEDS: lisinopril 10 MG TAB PO SCH ×2 (09:37→20:04)
[2022-04-13] MEDS: amLODIPine BESYLATE 5 MG TAB PO SCH (09:38)
[2022-04-13] MEDS ORDERED: Nursing to Pharmacy Communication SCH (12:45)
[2022-04-13] MEDS: POLYETHYLENE (MIRALAX) 17 GM PACK PO SCH ×3 (16:41→23:30)
[2022-04-13] MEDS: ATORVASTATIN 40 MG TAB PO SCH (20:03)
[2022-04-13] MEDS: LATANOPROST 0.005% OP SOLN 2.5 ML BTL OPB SCH (20:04)
[2022-04-13] MEDS: WARFARIN SOD 3 MG TAB PO SCH (21:37)
[2022-04-14] MEDS: POLYETHYLENE (MIRALAX) 17 GM PACK PO SCH ×6 (03:26→22:46)
--- NOTE | 2022-04-14 05:29 | Surgery Progress Note ---
Date of Service April 14, 2022 Assessment & Plan (1) Abdominal pain: Plan: Patient has been admitted on the hospitalist service: Initial CT scan showed a normal-appearing appendix with a small amount of periappendiceal inflammation; CT scan was reread by in-house radiology and they did not feel appendicitis was present on the initial CT scan. Continue to employ serial exams Continue diet as tolerated Check a.m. labs when available Remainder of plan as directed by primary service Admission and Anticipated Discharge Date Admission Date: April 13, 2022 Subjective Patient is resting comfortably in bed. He notes that his abdominal pain has improved since admission and is almost nonexistent at this time. He denies any nausea or vomiting. He has tolerated diet advancement. He has not had a bowel movement but has passed a small amount of flatus. Physical Exam Gastrointestinal (Abdomen): Abdomen is soft with minimal distention. There is no rebound tenderness or guarding. There is minimal to no pain with palpation in the lower abdomen this morning. Results & Data ([facility]) Vital Signs (Past 12 Hours) Vital Signs Temp Pulse Resp BP Pulse Ox O2 Del Method 04/13/22 22:11 36.6 C 60 18 145/72 H 94 Room Air PG Care Time/CCT Total # of Minutes Spent Total Time Spent with Patient: Total time spent is greater than 50% in coordination of care (as documented) at patient's floor/unit and/or counseling patient: Coding Level of Care Code None Diagnoses Abdominal pain R10.9
[2022-04-14] MEDS: AMIODARONE 200 MG TAB PO SCH (07:43)
[2022-04-14] MEDS: DOCUSATE SODIUM 100 MG CAP PO SCH ×2 (07:44→21:35)
[2022-04-14] MEDS: buPROPion XL 150 MG TABCR PO SCH (07:44)
[2022-04-14] MEDS: amLODIPine BESYLATE 5 MG TAB PO SCH (07:44)
[2022-04-14] MEDS: lisinopril 10 MG TAB PO SCH (07:45)
[2022-04-14] MEDS: carvediloL 6.25 MG TAB PO SCH ×2 (07:45→21:38)
[2022-04-14] MEDS: SENNA 8.6 MG TAB PO SCH ×2 (07:46→21:36)
[2022-04-14] MEDS: INSULIN ASPART PER UNIT SC SCH ×4 (08:41→21:52)
[2022-04-14 09:28] LABS: Prothrombin Time 20.5 Seconds (9.0-12.0)
[2022-04-14 09:30] LABS: Hematocrit (blood only) 38.9 % (40.1-51.0); Hemoglobin 13.3 g/dl (14.0-18.0); Mean Corpuscular Hemoglobin 32.1 pg (25.0-34.0); Mean Corpuscular Hgb Conc 34.2 g/dL (32.0-36.0); Platelet Count 175 K/uL (130-400); RDW Coefficient of Variation 12.8 % (11.5-14.5); RDW Standard Deviation 44.4 fL (36.4-46.3); Red Blood Count 4.14 M/uL (4.63-6.08); White Blood Count 3.99 K/ul (4.8-10.8)
[2022-04-14 09:39] LABS: BUN Creatinine Ratio 11.4 (10-20); Calcium 8.7 mg/dl (8.5-10.1); Est GFR (African American) 92.7 ml/min; Potassium 4.7 mmol/L (3.5-5.1)
[2022-04-14] MEDS ORDERED: MAGNESIUM HYDROXIDE SUSP 30 ML UDC PO ONE (13:51)
--- NOTE | 2022-04-14 15:49 | Hospitalist Progress Note ---
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 Abdominal pain sec to worsening of chronic constipation - of note, brain hemorrhage (01/2022) was reportedly in setting of excessive bowel straining - KUB showing moderate constipation - CTAP showed no acute processes, neg for acute appendicitis, moderate stool in colon, none in rectum - per gen surg, no surgical indications, no abx, follow clinically - added back home regimen of docusate 200 mg BID and senna 17.2 mg BID - in addition, miralax 17 g q4hr - encouraged pt to increase water intake - pt tolerating diet well - 04/14; abdominal pain improved, still w/o BM- given 30 mL dose of milk of magnesia DM II - A1c 6.2 09/2021, A1c pending - goal bsg Range: 120-160 - correction Factor: 40 - check blood sugars ACHS HLD - continue home atorvastatin 40 qhs Hx of hemorrhagic stroke - head CT showed no acute findings and resolution of right sided hematoma - resumed warfarin at 3 mg daily (except 4.5mg taken on ) - today PT/INR 20.5/2 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 and recurrent DVTs - resume warfarin Hx of DVT - see above Anxiety - continue home bupropion Afib - continue home amiodarone HTN - current home regimen carvedilol 6.25mg BID, amlodipine 10 mg, lisinopril 10 mg BID - some BPs elevated into 160-170s systolic; in setting of recent hemorrhagic stroke, BP uncontrolled - increase lisinopril from 10 mg BID to 20 mg BID Prostate cancer - receives Lupron as outpatient Glaucoma - continue home latanoprost (2) Diabetes mellitus type 2 in obese: (3) Hyperlipidemia: (4) History of hemorrhagic stroke with residual hemiparesis: (5) Antithrombin III deficiency: (6) Hx of deep venous thrombosis: (7) Anxiety: (8) Paroxysmal atrial fibrillation: (9) Hypertension: (10) Prostate cancer: (11) Glaucoma: Plan FEN/GI: carb consistent ppx: SCDs, resume warfarin code status: full code dispo: med/surg Admission and Anticipated Discharge Date Admission Date: April 13, 2022 Supervising Physician Co-Signing Physician Notes Resident Physician Supervision Note: I independently interviewed and examined the patient and verified the morgan history and physical, reviewed labs and image studies and agree with resident findings and care plan. 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 Pt feeling well today. Still no BM. His abdominal pain has subsided. He has tried increasing his water intake and walking the halls to stimulate his bowels. Physical Exam Constitutional: NAD. Vitals WNL. Eyes: no conjunctival abnormality Respiratory: CTA bilaterally. No rhonchi, wheezing, or crackles. Non labored breathing. Cardiovascular: RRR. No murmur noted. No LL edema. Gastrointestinal (Abdomen): Nontender, +BS. No masses noted. Skin: no rashes, warm and dry Psychiatric: Alert. Mood and affect congruent. Results & Data Results & Data ([facility]) Vital Signs (Past 12 Hours) Vital Signs Temp Pulse Resp BP Pulse Ox O2 Del Method 04/14/22 14:57 36.6 C 59 L 18 173/81 H 95 Room Air 04/14/22 07:35 36.6 C 58 L 18 168/81 H 95 Room Air Resident Activity Tracking Resident Involvement: Resident Care Provided Care Provided: Adult Hospital Medicine (1) Constipation Constipation type: unspecified constipation type Qualified Code(s): K59.00 - Constipation, unspecified
[2022-04-14] MEDS: ATORVASTATIN 40 MG TAB PO SCH (21:35)
[2022-04-14] MEDS: WARFARIN SOD 3 MG TAB PO SCH (21:36)
[2022-04-14] MEDS: LATANOPROST 0.005% OP SOLN 2.5 ML BTL OPB SCH (21:38)
[2022-04-14] MEDS: lisinopril 20 MG TAB PO SCH (21:52)
--- NOTE | 2022-04-14 22:07 | Electrocardiogram Report ---
Test Reason : Blood Pressure : / mmHG Vent. Rate : 058 BPM Atrial Rate : 058 BPM P-R Int : 288 ms QRS Dur : 090 ms QT Int : 492 ms P-R-T Axes : 085 008 126 degrees QTc Int : 482 ms Sinus bradycardia with 1st degree A-V block Prolonged QT Abnormal ECG When compared with ECG of 10-FEB-2022 00:08, T wave inversion more evident in Anterior leads QT has lengthened Confirmed by Ricardo Peng ([id number]) on 04/14/2022 10:06:42 PM Referred By: REFERRED SELF Confirmed By:Ricardo Peng
[2022-04-15] MEDS: POLYETHYLENE (MIRALAX) 17 GM PACK PO SCH ×3 (02:11→12:15)
[2022-04-15 07:20] LABS: Estimated Average Glucose 128 mg/dl; Hemoglobin A1C 6.1 % (4.5-5.6)
[2022-04-15 08:19] LABS: Hematocrit (blood only) 36.6 % (40.1-51.0); Hemoglobin 12.9 g/dl (14.0-18.0); Mean Corpuscular Hemoglobin 32.2 pg (25.0-34.0); Mean Corpuscular Hgb Conc 35.2 g/dL (32.0-36.0); Mean Corpuscular Volume 91.3 fL (80.0-100.0); Mean Platelet Volume 8.9 fL (9.4-12.4); Platelet Count 145 K/uL (130-400); RDW Coefficient of Variation 12.6 % (11.5-14.5); Red Blood Count 4.01 M/uL (4.63-6.08); White Blood Count 3.62 K/ul (4.8-10.8)
[2022-04-15 08:30] LABS: INR 1.9 (0.9-1.1)
[2022-04-15 08:41] LABS: BUN Creatinine Ratio 12.2 (10-20); Calcium 8.5 mg/dl (8.5-10.1); Creatinine Clr Calc Pharmacy 60.9 ml/min; Est GFR (African American) 82.3 ml/min; Potassium 4.4 mmol/L (3.5-5.1)
[2022-04-15] MEDS: carvediloL 6.25 MG TAB PO SCH (08:42)
[2022-04-15] MEDS: lisinopril 20 MG TAB PO SCH (08:42)
[2022-04-15] MEDS: amLODIPine BESYLATE 5 MG TAB PO SCH (08:42)
[2022-04-15] MEDS: DOCUSATE SODIUM 100 MG CAP PO SCH (08:43)
[2022-04-15] MEDS: buPROPion XL 150 MG TABCR PO SCH (08:44)
[2022-04-15] MEDS: AMIODARONE 200 MG TAB PO SCH (08:45)
[2022-04-15] MEDS: INSULIN ASPART PER UNIT SC SCH ×2 (08:46→12:36)
[2022-04-15] MEDS: SENNA 8.6 MG TAB PO SCH (08:46)
--- NOTE | 2022-04-15 09:23 | Discharge Summary ---
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 For several weeks, he has had bilt lower abd pain, predominantly while straining during bowel movement. He has had the same the last few days, but of greater severity. Denies fever/chills, N/V, urinary symptoms, bloody stool, melena. He has had only small BMs in the past week. He took laxative, stool softener, and prune juice w/o relief. He had small BM yesterday. He used Fleet enema at home w/o relief. States fluid intake has not been the greatest. Currently, pain is mild, 3-4/10; this is after the IV Fentanyl. is present at bedside. She states patient has had mild L facial and L extremity residual weakness from his stroke and that his speech is slightly dysarthric as well. [facility] and does not receive blood products. ED course: Zofran, Fentanyl 50mcg, soap suds enema. wbc 4.77. Hb 13.7. Na 134. K 4.5. Cr 1.06 (baseline). Mg 1.6. Lipase 31. Admission Exam Per Admitting Provider General: Grossly A&O. NAD. Cooperative. Slight fatigue, s/p fentanyl. HEENT: Atraumatic, normocephalic. EOMI Pulm: CTAB. -wheezes, -rales, -rhonchi. No accessory muscle use. Cardiac: RRR, -mrg. Abdominal: Soft. Obese abd. Mild-mod bilat lower abd ttp, no rebound or rigidity. Back: No cva ttp. Integ: Warm, dry, intact Neuro: Normal strength and sensation of extremities. 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 5+/5 bilat upper and lower extremity strength. Slight dysarthria. Principal Diagnosis constipation Discharge Exam Constitutional NAD. Vitals WNL. Respiratory CTA bilaterally. No rhonchi, wheezing, or crackles. Cardiovascular RRR. No murmurs noted. No LE edema. Gastrointestinal (Abdomen) Soft, distended, nontender, +BS. No masses noted. Psychiatric Alert. Mood and affect congruent. Discharge Data Allergies Allergy/AdvReac Type Severity Reaction Status Date / Time meperidine AdvReac Intermediate OVER-SEDATION, Verified 04/13/22 05:30 N/V W/ SYNCOPE Consultations 04/13/22 02:09 Consult General Surgery Routine ED Decision to Admit Stat Ordered Studies 04/13/22 00:53 CT abd pelvis wo con Urgent CT head/brain wo con Urgent KUB X-Ray 04/12/22 21:55 KUB CLINICAL HISTORY: Constipation. FINDINGS: 2 AP supine abdominal radiographs are correlated with abdominal CT dated 11/21/2021. There is a nonobstructed abdominal bowel gas pattern. Moderate fecal retention is seen throughout the colon. No evidence of intraperitoneal free air is seen on these supine images. There is advanced atherosclerotic calcification of the iliac and femoral arteries. No abnormal abdominal calcifications are identified. The skeletal structures are osteopenic and appear intact. There is lumbosacral spondylosis. Cardiomegaly is noted in the lower chest. IMPRESSION: Moderate constipation. Electronically signed by: Saleem Doll M.D. 04/13/2022 12:43 AM Abdomen/Pelvis CT 04/13/22 00:53 CT OF THE ABDOMEN AND PELVIS WITHOUT CONTRAST CLINICAL HISTORY: lower abdominal pain, no BM several days COMPARISON STUDY: CT of the abdomen and pelvis November 21, 2021. TECHNIQUE: Axial images of the abdomen and pelvis were obtained without IV contrast. Images were reviewed in the axial, sagittal, and coronal planes. Automated exposure control was utilized for the study. A dose lowering technique was utilized adhering to the principles of ALARA. FINDINGS: Lung bases are unremarkable. No pneumatosis, free air or portal venous gas is present. A few hypodense hepatic lesions are unchanged. These are benign. Liver is mildly dense. No pneumatosis, free air or portal venous gas is present. There is no biliary or pancreatic ductal dilatation. Evaluation of the abdomen and pelvis is suboptimal on this unenhanced exam. Spleen, adrenal glands are unremarkable. Pancreatic glandular atrophy is noted. There is no hydronephrosis. There are no urinary calculi. Bladder is mildly distended. There is no evidence for a bowel obstruction. Submucosal fat within the appendix is noted. There is no evidence for acute appendicitis. The appearance of the appendix is unchanged since CT of November 21, 2021. There is no lymphadenopathy or ascites. Moderate amount of stool within the colon is noted. There is no significant stool within the rectum. No acute fracture within the visualized skeletal structures is present. Old L1 compression deformity is unchanged. IMPRESSION: 1. No acute process within the abdomen or pelvis. No evidence for acute appendicitis. This finding will be called/faxed to the ordering provider at time of dictation. 2. No bowel obstruction. Moderate amount of stool within the colon. No stool within the rectum. 3. No urinary calculi or hydronephrosis. ACT 112: Negative or not required by law. Electronically signed by: Ari Silva M.D. 04/13/2022 8:[address] 04/13/22 00:53 CT OF THE HEAD WITHOUT CONTRAST CLINICAL HISTORY: headache, recent head bleed COMPARISON STUDY: Head CT February 09, 2022. CT DOSE: 1535.57 mGy.cm TECHNIQUE: Helical axial images of the head were obtained without IV contrast. Automated exposure control was utilized for the study. A dose lowering technique was utilized adhering to the principles of ALARA. FINDINGS: No acute intracranial hemorrhage, midline shift or mass effect is present. Encephalomalacia within the right external capsule representing expected evolution of the hematoma shown on CT of February 10, 2022. Suspected old infarct within the left external capsule is unchanged. The ventricular system is unremarkable. The basal cisterns are patent. No extra-axial collections are present. There are no findings to suggest acute dural sinus thrombosis or acute territorial infarct. No significant calvarial abnormalities are present. Visualized portions of the sinuses and mastoid air cells are clear. IMPRESSION: No acute intracranial findings. Resolution of the right external ca psule hematoma on prior CT. Expected encephalomalacia. ACT 112: Negative or not required by law. Electronically signed by: Ari Silva M.D. 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 Abdominal pain sec to worsening of chronic constipation - of note, brain hemorrhage (01/2022) was reportedly in setting of excessive bowel straining - KUB showing moderate constipation - CTAP showed no acute processes, neg for acute appendicitis, moderate stool in colon, none in rectum - per gen surg, no surgical indications, no abx, follow clinically - added back home regimen of docusate 200 mg BID and senna 17.2 mg BID - in addition, miralax 17 g q4hr - encouraged pt to increase water intake; pt tolerating oral diet well - 04/14; abdominal pain improved, still w/o BM- given 30 mL dose of milk of magnesia - 04/15; pt had 3 moderate-large liquid BM overnight - encouraged pt to continue miralax BID as his home regimen; discontinue the senna and docusate as they did not appear to be working - pt instructed to adjust miralax dosing based off of previous day's BM, abdominal pain, and previous day's miralax dose HTN - current home regimen carvedilol 6.25mg BID, amlodipine 10 mg, lisinopril 10 mg BID - some BPs elevated into 160-170s systolic; in setting of recent hemorrhagic stroke, BP uncontrolled - given one PM and one AM dose of 20 mg lisinopril in day before d/c - elevated BP likely d/t hospitalization; would recommend reevaluation of BP outpatient to ensure he is well controlled, consider lisinopril increase to 20 mg BID Hx of hemorrhagic stroke - head CT showed no acute findings and resolution of right sided hematoma - resumed warfarin at 3 mg daily (except 4.5mg taken on ) - PT/INR 20.0/1.9 upon d/c DM II - A1c 6.1 while hospitalized - goal bsg Range: 120-160 - correction Factor: 40 - check blood sugars ACHS - continue outpatient regimen w/o changes upon d/c HLD - continue home atorvastatin 40 qhs 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 and recurrent DVTs - continue warfarin Hx of DVT - see above Anxiety - continue home bupropion Afib - continue home amiodarone Prostate cancer - receives Lupron as outpatient Glaucoma - continue home latanoprost (2) Diabetes mellitus type 2 in obese: (3) Hyperlipidemia: (4) History of hemorrhagic stroke with residual hemiparesis: (5) Antithrombin III deficiency: (6) Hx of deep venous thrombosis: (7) Anxiety: (8) Paroxysmal atrial fibrillation: (9) Hypertension: (10) Prostate cancer: (11) Glaucoma: Plan FEN/GI: carb consistent ppx: SCDs, resume warfarin code status: full code dispo: home Total Time Total Time Spent Total Time Spent (In Minutes): <30 Discharge Plan Discharge Items Patient Disposition: Home - Self-Care Reason For Visit: CONSTIPATION Discharge Diagnosis: constipation Activity: Per Instructions section Non-emergency contact: Primary Care Provider Call non-emergency contact if: you have any medication questions and your symptoms worsen Follow-up/Referrals: Daniel Mariscal MD [Primary Care Provider] - 04/26/22 11:00 am (APPOINTMENT WITH [facility]) Diet: Carb Consistent or DM2 and Other - See Diet Comment Diet Comment: Make sure to increase water intake Addtl Attending Provider Instructions: You were admitted to the hospital for constipation. You were treated with an aggressive bowel regimen including your home medications, docusate and senna each twice per day, with the addition of miralax every 4 hours. This still did not result in a bowel movement so you were given a dose of milk of magnesia (magnesium hydroxide). This resulted in you being able to move your bowels effectively. However, there is still a large burden of stool in your colon. Increasing your water intake, in addition to the miralax instructions below, will help keep your bowel movements regular. A discharge summary will be sent to your primary care physician to ensure continuity of care. Please bring this discharge summary with you to your next office appointment so that your provider can review it at that time. Medications: Your medication list has been reviewed and reconciled upon discharge to ensure accuracy and continuity of care. An updated list of all your medications is included with your hospital discharge paperwork. Please review this list closely and make note of any changes to your medications. - Stop taking your senna and docusate as it didn't seem as if they were helping your bowel movements. - Begin taking miralax 1 cap full (17 g) twice per day to keep your bowel movements regular. - You should base your miralax intake on the previous day's bowel movements. If you are more constipated, you can add an extra cap to your daily dosing. - Each day's miralax should be based off of the previous day bowel movements, how your abdomen feels, and how much miralax you took. - Do not stop taking your miralax just because your stools seem loose or watery. Sometimes this occurs due to what is called "overflow." This is when you are actually still constipated, creating a blockage in your colon, in which the liquid stools will flow out around. Continue to take your miralax if you suspect this is occurring because you are still constipated at that point. - You can keep adding miralax doses until you reach 6 caps in one day. At that point, you should contact your PCP to discuss your constipation further. Follow up appointments: - We have requested a follow up appointment with your primary care physician within one week of discharge. Please call their office if you do not hear from them. - Keep all of your follow up appointments as already scheduled. If you cannot make an appointment, notify your provider. CONTACT YOUR PRIMARY CARE PROVIDER if you experience any of the following: - Continued difficulty moving your bowels - Confusion concerning how much/when to take your miralax - Difficulty following your treatment plan - Difficulty taking any of your medications CALL 911 OR GO TO THE EMERGENCY DEPARTMENT if you experience any of the following: - Severe abdominal pain related to not moving your bowels - Sudden, severe abdominal pain or nausea/vomiting - Severe chest pain or chest pain that radiates to your jaw or arm - Sudden, severe shortness of breath or difficulty breathing Pending Studies at Discharge: No Stand-Alone Forms: My [facility] Whois, Smoking Cessation Medications and DC Order Prescriptions: New polyethylene glycol 3350 [Miralax] 17 gram Powder In Packet 17 g PO BID Qty: 30 0RF Continued atorvastatin 40 mg tablet 40 mg PO HS Qty: 90 3RF warfarin 3 mg tablet 3 mg PO .COMPLEX Qty: 120 3RF Protocol: Dose Management Condition: Friday Dose/Route: 3 mg Instruction: 1 x 3 mg tablet Condition: Friday Dose/Route: 4.5 mg Instruction: 1.5 x 3 mg tablets Condition: Friday Dose/Route: 3 mg Instruction: 1 x 3 mg tablet Condition: Friday Dose/Route: 3 mg Instruction: 1 x 3 mg tablet Condition: Dose/Route: 4.5 mg Instruction: 1.5 x 3 mg tablets Condition: Friday Dose/Route: 3 mg Instruction: 1 x 3 mg tablet Condition: Friday Dose/Route: 3 mg Instruction: 1 x 3 mg tablet Protocol Text: Adjustment Start Date: Friday04/15/22 INR Value: 1.9 INR Date: 04/15/22 Recheck Date: 04/22/22 Rx Instructions: 3 mg PO //Fri//Sa/Sun; 4.5 mg PO Sun carvedilol 6.25 mg tablet 6.25 mg PO BID Qty: 180 3RF Rx Instructions: must administer with a meal/food amlodipine 10 mg tablet 10 mg PO DAILY Qty: 90 3RF amiodarone 200 mg tablet 200 mg PO QAM Qty: 90 3RF metformin 500 mg tablet 500 mg PO BID Qty: 180 3RF Lupron Depot (6 Month) 45 mg syringe kit 45 mg IM Q24W Qty: 1 0RF bupropion HCl 150 mg tablet extended release 24 hr 150 mg PO QAM Qty: 90 3RF lisinopril 10 mg tablet 10 mg PO BID Qty: 60 3RF (DME) blood sugar diagnostic Strip See Rx Instructions .ROUTE .MEDSUPPLY Qty: 100 3RF Rx Instructions: TEST BLOOD SUGAR ONCE A DAY & NEEDED latanoprost 0.005 % drops 1 drp OPB HS aspirin [Christine Low Dose Aspirin] 81 mg Tablet,Delayed Release (Dr/Ec) 81 mg PO QAM Label Comments: ON HOLD FOR SURGERY mecobalamin (vitamin B12) 1,000 mcg tablet,chewable 1,000 mcg PO QAM warfarin 3 mg tablet 4.5 mg PO TH Protocol: Dose Management Condition: Friday Dose/Route: 3 mg Instruction: 1 x 3 mg tablet Condition: Friday Dose/Route: 4.5 mg Instruction: 1.5 x 3 mg tablets Condition: Friday Dose/Route: 3 mg Instruction: 1 x 3 mg tablet Condition: Friday Dose/Route: 3 mg Instruction: 1 x 3 mg tablet Condition: Dose/Route: 4.5 mg Instruction: 1.5 x 3 mg tablets Condition: Friday Dose/Route: 3 mg Instruction: 1 x 3 mg tablet Condition: Friday Dose/Route: 3 mg Instruction: 1 x 3 mg tablet Protocol Text: Adjustment Start Date: Friday04/15/22 INR Value: 1.9 INR Date: 04/15/22 Recheck Date: 04/22/22 Discontinued docusate sodium 100 mg capsule 200 mg PO BID senna 8.6 mg capsule 17.2 mg PO BID Discharge Orders: Discharge Order (Routine); Ordered 04/15/22 Ordered By: Sandra Hurtado/Other Patient Handouts: Managing Type 2 Diabetes, Treating Constipation, ED Constipation (Adult) Admission Data Admit Date/Time: 04/13/22 04:07 Attending Provider: Akil Burroughs Admit Provider: Dakota Gray Primary Care Provider: Daniel Mariscal Other Providers: Riya Feliz ; Geovanny Vargas Other Interventions: Discharge Summary Assessment (RN) Last Done: 04/15/22 13:15 Supervising Physician Co-Signing Physician Notes I personally examined the patient and verified all morgan points of history and exam, discussed case, and agree with decision making with Dr Bolanos. Feeling better and would very much like to go home. Extensive discussion with patient and on chronic constipation, management, overflow diarrhea, titration of MiraLAX, etc. Vitals noted, in general he is awake and alert pleasant no distress. HEENT normocephalic atraumatic mucous membranes moist. Breathing unlabored no accessory muscle use good effort. Skin shows no rashes no pallor or icterus. Neuro without focal deficits. Abdomen is soft mildly distended nontender no guarding rebound or rigidity Constipationdoing better. Safe/stable for home, home ongoing MiraLAX/titration. Resident Activity Tracking Resident Involvement: Resident Care Provided Care Provided: Adult Hospital Medicine
--- NOTE | 2022-04-15 19:46 | Billing Data ---
Date of Service April 15, 2022 Coding Level of Care Code 56963 OBS Care - Discharge
--- NOTE | 2022-04-15 19:47 | Billing Data ---
Date of Service April 15, 2022 Coding Level of Care Code 89716 OBS Care - Discharge
== END 2022-04-15 13:41 | disposition home or self-care (01) ==
LOC: 3W 19:32 → ED 19:32 → SUATTDRO 04-13 04:07 → 3W 04-13 04:45

== ENCOUNTER 2022-07-29 17:24 | Inpatient (IN) ==
--- NOTE | 2022-07-29 18:02 | Emergency Department Note ---
Impression & Plan Fall from standing, Multiple fractures of rib involving four or more ribs, Closed intertrochanteric fracture of femur ED Provider Note HISTORY OF PRESENT ILLNESS: Patient is an 82-year-old male presenting with right hip pain and right chest pain after a fall from standing. Patient reports he was in his garage trying to pull the cord for a machine to be started when he tripped over his feet and fell onto his right side. Denies striking his head or loss of consciousness. He is on Coumadin for history of blood clots. He was unable to get up on his own secondary to right hip pain so he crawled outside his garage and flagged down a car. He denies any chest pain, shortness of breath or lightheadedness prior to the fall. He was transported via EMS and given fentanyl and Zofran in route. ROS: as above PHYSICAL EXAM: Constitutional: Patient appears in no acute distress. HENT: Head: Normocephalic and atraumatic. Eyes: EOMI, PERRL Mouth/Throat: Mucous membranes moist. Neck: Trachea midline. Neck supple. No midline cervical spine tenderness to palpation Cardiovascular: RRR, No murmurs, rubs or gallops. Intact distal pulses. Pulmonary/Chest: No respiratory distress. Breath sounds clear and equal bilaterally. No wheezes or rales. Right chest wall is diffusely tender to palpation. No obvious ecchymosis. No evidence of flail chest. Abdominal: BS +. Abdomen soft, no tenderness, rebound or guarding. Back: No midline spinal tenderness, no paraspinal tenderness, no CVA ten derness. Musculoskeletal: - RLE: Tenderness to palpation to the right lateral hip and proximal femur. Unable to range the hip secondary to pain. Sensation intact to light touch throughout the nerve distributions of the leg. Intact DP and PT pulses. Leg is slightly shortened and externally rotated Skin: Warm and dry. No rash, erythema, pallor or cyanosis Psychiatric: Appropriate mood and affect for situation. Neurological: Alert and keenly responsive. CN II-XII grossly intact, moving all extremities equally and fully. MDM: - Vitals signs stable. - History obtained via patient. Patient presents with right chest pain and right hip pain after a fall from standing. Patient had a mechanical fall from standing and landed on his right hip and right chest. He is on Coumadin. Denies striking his head or loss of consciousness. He was unable to get up secondary to pain in the hip. - Chronic conditions affecting care: DM-2; hx of DVT and PE; HLD; HTN - Differential diagnoses include, but are not limited to: Femur fracture; femur dislocation; rib fractures; pulmonary contusion; ACS - Order placed for continuous cardiac monitoring. At this time, monitor showed rate of 65 bpm with normal sinus rhythm, per my interpretation. - External medical records reviewed. EMS run sheet reviewed. Patient given 4 mg of IV Zofran and 75 mcg of IV fentanyl in route to the hospital. His respiratory is decreased to 4 and he was started on oxygen. - EKG reviewed by myself showed normal sinus rhythm. Rate 67 bpm. QTc 281. No acute ischemic changes. Noted to have some T wave depressions in V4-V6. Patient had T wave inversions in these leads previously. - Laboratory workup interpreted by myself showed leukocytosis (WBC 12.39 - l ikely reactive); INR 3.4; stable hemoglobin; normal troponin - CT chest wo contrast showed fractures of right ribs 3-7. - Considered CT abd/pelvis, but patient has no reproducible abdominal pain on ph ysical examination. Considered CT head, but patient did not strike his head. - Xray right femur and pelvis showed intertrochanteric femur fracture, per my interpretation. - Patient given dose of 4 mg IV morphine in ER for persistent pain. His saturations decreased and he was started on supplemental oxygen. - Discussed case with orthopedist airborne operations, Dr. Cruz. He recommends admission to hospitalist and plan for surgery in 2 days after coumadin is reversed. - Patient blew [id number] on incentive spirometer. - Discussed case with social media marketing analyst for patient's need for admission. - Hospitalist, Dr. Mart, consulted for admission. - Patient admitted to [facility] service for further evaluation and management. ASSESSMENT AND PLAN: Diagnosis: fall from standing; right hip pain; right chest wall pain; multiple right rib fractures; right intertrochanteric femur fracture Plan: admit Past Med/Surg History Medical History (Updated 07/29/22 @ 20:16 by Adelita Herrera MD) Acute spont intraparenchymal hemorrhage assoc w/ hypertension Antithrombin III deficiency FOLLOWS PCP > DR. TAN/LOC - ON COUMADIN Blurred vision, bilateral Cataract RT/LEFT Chest pain Constipation Diabetes mellitus type 2 in obese Dizziness Forgetfulness "RELATED TO AGE" Glaucoma LEFT EYE History of adenomatous polyp of colon History of atrial fibrillation History of hemorrhagic stroke with residual hemiparesis History of prostate cancer History of skin cancer MELANOMA AND BASAL CELL Hx of deep venous thrombosis SEVERAL YEARS AGO, REASON FOR COUMADIN Hx pulmonary embolism WITH DVT ? YEAR "A FEW YEARS AGO" Hyperlipidemia Hypertension Hypertensive heart disease preserved LV function Hypertensive urgency Obstructive sleep apnea no device used (could not tolerate) Osteoarthritis Prostate cancer Refusal of blood transfusions as patient is Judaism Thoracic ascending aortic aneurysm UNSURE ABOUT DX Surgical History History of cardioversion (11/2018) X 4--last 06/22/21 @ [facility] History of colonoscopy History of local excision of skin lesion MULTIPLE REMOVAL History of nasal septoplasty multiple-with Celon turbinate reduction History of tooth extraction Hx of colonoscopy Hx of prostate biopsy Family History Mother Venous embolism and thrombosis of deep vessels of lower extremity Cancer Father Stroke syndrome Other No family history of adverse response to anesthesia No family history of bleeding disorder No pertinent family history Denies family history of Ovarian cancer Prostate cancer Coronary heart disease Alzheimer disease Bipolar disorder Breast cancer COPD (chronic obstructive pulmonary disease) Colorectal cancer Asthma Social History Smoking Status: Never smoker Second Hand Exposure: No; Hx Alcohol Use: No Hx Substance Use: No Preferred Language: Kiswahili Communication Ability: Effective Visual Impairment: No Limitations Hearing Ability: Normal Highway 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 Helper Required: No Beliefs That Will Affect Care: None marital status: Current Living Situation: Spouse current occupational status: retired current occupation: Worked at [employer] How many Children do You have: 2 Feels Safe at Home: Yes Childhood Exposure to Second-Hand Smoke: No caffeine: No during the past year weight has: remained stable Dental Care, Regularly: Yes Physical Activity Frequency: Does not Exercise Seatbelt Use: always Sunscreen Use: No Assistive Devices: None Allergies Allergies Allergy/AdvReac Type Severity Reaction Status Date / Time meperidine AdvReac Intermediate OVER-SEDATION, Verified 07/29/22 19:58 N/V W/ SYNCOPE sertraline [From Zoloft] AdvReac Intermediate Dizziness Verified 07/29/22 19:58 Home Meds Home Medications Medication Instructions Recorded Confirmed latanoprost 0.005 % eye drops 1 drp OPB HS 06/28/18 07/29/22 mecobalamin (vitamin B12) 1,000 1,000 mcg PO QAM 03/21/20 07/29/22 mcg chewable tablet warfarin 3 mg tablet 4.5 mg PO WK 06/18/21 07/29/22 lisinopril 10 mg tablet 10 mg PO QAM 07/29/22 07/29/22 polyethylene glycol 3350 17 gram 17 g PO BID PRN Constipation 07/29/22 07/29/22 oral powder packet (Miralax) warfarin 3 mg tablet 3 mg PO [id number] 07/29/22 07/29/22 Previous Rx's Medication Instructions Recorded leuprolide acetate (6 month) 45 mg 45 mg IM Q24W #1 ea 04/25/20 intramuscular syringe kit (Lupron Depot) blood sugar diagnostic #100 ea 02/25/22 carvedilol 6.25 mg tablet 6.25 mg PO BID #180 tabs 03/01/22 amiodarone 200 mg tablet 200 mg PO QAM #90 tabs 03/18/22 metformin 500 mg tablet 500 mg PO BID #180 tabs 04/08/22 amlodipine 2.5 mg tablet 2.5 mg PO DAILY #90 tabs 06/28/22 atorvastatin 40 mg tablet 40 mg PO HS #90 tabs 07/17/22 Results & Data (ED) Vital Signs Vital Signs - 24 hr 07/29/22 17:31 07/29/22 17:30 07/29/22 19:11 Temperature 36.5 C Temperature Source Oral Pulse Rate 68 69 Pulse Rate [Bilateral Apical] 62 Respiratory Rate 14 20 Blood Pressure 115/70 Blood Pressure [Left Arm] 91/59 L Blood Pressure Mean 85 Blood Pressure Mean [Left Arm] 69 Pulse Oximetry 95 93 Oxygen Delivery Method Room Air Room Air Oxygen Flow Rate Sepsis Recent Fever Within 48 Hours No Sepsis New/Unexplained Change in Mental Status No Sepsis Action Taken by Nursing No Action Required Oxygen Flow Rate - Titration Pulse Oximetry Post Tiitration 07/29/22 19:24 07/29/22 20:10 Temperature Temperature Source Pulse Rate Pulse Rate [Bilateral Apical] 66 Respiratory Rate Blood Pressure Blood Pressure [Left Arm] 109/69 Blood Pressure Mean Blood Pressure Mean [Left Arm] 82 Pulse Oximetry 88 L 99 Oxygen Delivery Method Nasal Cannula Nasal Cannula Oxygen Flow Rate 0 3 Sepsis Recent Fever Within 48 Hours Sepsis New/Unexplained Change in Mental Status Sepsis Action Taken by Nursing Oxygen Flow Rate - Titration 2 Pulse Oximetry Post Tiitration 99 Laboratory Data 07/29/22 17:43 07/29/22 17:43 Lab Results 07/29/22 07/29/22 07/29/22 Range/Units 17:43 17:43 17:43 WBC 12.39 H (4.8-10.8) K/ul RBC 4.09 L (4.70-6.10) M/uL Hgb 13.2 L (14.0-18.0) g/dl Hct 37.8 L (42.0-52.0) % MCV 92.4 (80.0-100.0) fL MCH 32.3 (25.0-34.0) pg MCHC 34.9 (32.0-36.0) g/dL RDW Std Deviation 41.5 (36.4-46.3) fL RDW Coeff of Mickey 12.3 (11.5-14.5) % Plt Count 201 (130-400) K/uL MPV 9.9 (9.4-12.4) fL Immature Gran % (Auto) 0.4 % Neut % (Auto) 89.0 % Lymph % (Auto) 5.2 % [place] % (Auto) 5.1 % Eos % (Auto) 0.1 % Baso % (Auto) 0.2 % Neut # (Auto) 11.03 H (1.40-6.50) K/uL Lymph # (Auto) 0.64 L (1.2-3.4) K/uL [place] # (Auto) 0.63 H (0.11-0.59) K/uL Eos # (Auto) 0.01 (0-0.50) K/uL Baso # (Auto) 0.03 (0-0.2) K/uL Immature Gran # (Auto) 0.05 (0.01-0.20) K/uL PT 33.7 H (9.0-12.0) Seconds INR 3.4 H (0.9-1.1) Sodium 134 L (136-145) mmol/L Potassium 5.1 (3.5-5.1) mmol/L Chloride 99 (98-107) mmol/L Carbon Dioxide 24 (21-32) mmol/L Anion Gap 11 (3-11) BUN 22 (6-23) mg/dl Creatinine 1.18 (0.6-1.4) mg/dl Est Cr Clr Drug Dosing 50.5 ml/min Est GFR ( Amer) 65.7 ml/min Est GFR (Non-Af Amer) 56.7 ml/min BUN/Creatinine Ratio 18.6 (10-20) Glucose 155 H (70-99(Fasting)) mg/dl Calcium 8.7 (8.5-10.1) mg/dl Total Bilirubin 1.3 H (0.2-1.0) mg/dl AST 49 H (13-39) U/L ALT 60 H (7-52) U/L Alkaline Phosphatase 109 H (34-104) U/L Troponin I High Sens 9.9 (0-20) pg/ml Total Protein 6.4 (6.0-8.3) gm/dl Albumin 3.8 (3.4-5.0) gm/dl Globulin 2.6 (2.5-4.0) gm/dl Albumin/Globulin Ratio 1.5 (0.9-2) Administered Medications Discontinued Medications Morphine Sulfate (Morphine Sulfate 4 Mg/Ml 1 Ml Carp\\Vial) 4 mg IV NOW STA Stop: 07/29/22 18:14 Last Admin: 07/29/22 18:51 Dose: 4 mg Documented By: AY Imaging Data Radiologist's Impression: Chest CT 07/29/22 17:56 CT chest diagnostic wo con CLINICAL HISTORY: right rib pain s/p fall from standing TECHNIQUE: Multidetector row helical CT of the chest was performed. Coronal and sagittal reformations were obtained. Automated dose lowering techniques and/or adjustment according to patient size were utilized for this exam. CT DOSE: 550.91 mGy.cm Comparison: Comparison is made to CT chest 03/21/2020 FINDINGS: Lungs and pleura: Mild bronchial wall thickening and interstitial thickening is seen. No suspicious pulmonary nodules. Heart and pericardium: Cardiomegaly is seen with biatrial enlargement. Vessels: Moderate atherosclerotic changes in the aorta and coronary arteries. Pulmonary trunk measures 38 mm in diameter. The ascending aorta measures 39 mm in diameter. Mediastinum and enedelia: Unremarkable. Chest wall and lower neck: Unremarkable. Abdomen: Fatty atrophy of the pancreas is seen. Bones: There are displaced fractures of the right third, fourth, fifth, sixth, and seventh ribs. Old healed rib fractures are also seen bilaterally. Extensive degenerative changes are seen most prominent in the right glenohumeral joint. IMPRESSION: 1. Fractures involving the right third, fourth, fifth, sixth, and seventh ribs. 2. Mild interstitial lung disease and pulmonary hypertension. 3. Stable ectasia of the ascending aorta. ACT 112: Negative or not required by law. Electronically signed by: Abner Shah M.D. 07/29/2022 7:17 PM Femur X-Ray 07/29/22 17:56 XR pelvis 1-2V routine, XR femur RT 2V routine CLINICAL HISTORY: right hip pain s/p fall from standing TECHNIQUE: A single frontal view of the pelvis was obtained. 2 views of the right femur were obtained. Comparison: Comparison is made to hip radiograph 01/29/2019 FINDINGS: There is an intratrochanteric fracture of the right femur is partially visualized. Prominent degenerative changes are seen in the bilateral hip joints and lumbar spine. Vascular calcifications are noted. IMPRESSION: Partially visualized is an intratrochanteric fracture of the right femur. ACT 112: Negative or not required by law. Electronically signed by: Abner Shah M.D. 07/29/2022 7:03 PM Pelvis X-Ray 07/29/22 17:56 XR pelvis 1-2V routine, XR femur RT 2V routine CLINICAL HISTORY: right hip pain s/p fall from standing TECHNIQUE: A single frontal view of the pelvis was obtained. 2 views of the right femur were obtained. Comparison: Comparison is made to hip radiograph 01/29/2019 FINDINGS: There is an intratrochanteric fracture of the right femur is partially visualized. Prominent degenerative changes are seen in the bilateral hip joints and lumbar spine. Vascular calcifications are noted. IMPRESSION: Partially visualized is an intratrochanteric fracture of the right femur. ACT 112: Negative or not required by law. Electronically signed by: Abner Shah M.D. 07/29/2022 7:03 PM Discharge Plan Visit Data Chief Complaint: Fall Stated Complaint: FALL, HIP AND RIB PAIN ED Provider: Adelita Herrera Discharge Problem: Fall from standing, Multiple fractures of rib involving four or more ribs, Closed intertrochanteric fracture of femur Patient Disposition: Admitted As Inpatient Forms Stand Alone Forms: My [facility] Prescriptions Prescriptions: No Action carvedilol 6.25 mg tablet 6.25 mg PO BID Qty: 180 3RF Rx Instructions: must administer with a meal/food amiodarone 200 mg tablet 200 mg PO QAM Qty: 90 3RF metformin 500 mg tablet 500 mg PO BID Qty: 180 3RF atorvastatin 40 mg tablet 40 mg PO HS Qty: 90 3RF Lupron Depot (6 Month) 45 mg syringe kit 45 mg IM Q24W Qty: 1 0RF amlodipine 2.5 mg tablet 2.5 mg PO DAILY Qty: 90 3RF (DME) blood sugar diagnostic Strip See Rx Instructions .ROUTE .MEDSUPPLY Qty: 100 3RF Rx Instructions: TEST BLOOD SUGAR ONCE A DAY & NEEDED latanoprost 0.005 % drops 1 drp OPB HS mecobalamin (vitamin B12) 1,000 mcg tablet,chewable 1,000 mcg PO QAM warfarin 3 mg tablet 4.5 mg PO WK Protocol: Dose Management Condition: Friday Dose/Route: 3 mg Instruction: 1 x 3 mg tablet Condition: Friday Dose/Route: 3 mg Instruction: 1 x 3 mg tablet Condition: Friday Dose/Route: 4.5 mg Instruction: 1.5 x 3 mg tablets Condition: Friday Dose/Route: 3 mg Instruction: 1 x 3 mg tablet Condition: Dose/Route: 3 mg Instruction: 1 x 3 mg tablet Condition: Friday Dose/Route: 3 mg Instruction: 1 x 3 mg tablet Condition: Friday Dose/Route: 3 mg Instruction: 1 x 3 mg tablet Protocol Text: Adjustment Start Date: 07/18/22 INR Value: 3.2 INR Date: 07/18/22 Recheck Date: 07/29/22 Rx Instructions: TAKE 4.5MG EVERY FRIDAY polyethylene glycol 3350 [Miralax] 17 gram powder in packet 17 g PO BID PRN (Reason: Constipation) warfarin 3 mg tablet 3 mg PO 6XWK Protocol: Dose Management Condition: Friday Dose/Route: 3 mg Instruction: 1 x 3 mg tablet Condition: Friday Dose/Route: 3 mg Instruction: 1 x 3 mg tablet Condition: Friday Dose/Route: 4.5 mg Instruction: 1.5 x 3 mg tablets Condition: Friday Dose/Route: 3 mg Instruction: 1 x 3 mg tablet Condition: Dose/Route: 3 mg Instruction: 1 x 3 mg tablet Condition: Friday Dose/Route: 3 mg Instruction: 1 x 3 mg tablet Condition: Friday Dose/Route: 3 mg Instruction: 1 x 3 mg tablet Protocol Text: Adjustment Start Date: 07/18/22 INR Value: 3.2 INR Date: 07/18/22 Recheck Date: 07/29/22 Rx Instructions: TAKE 3MG EVERY FRIDAY/FRIDAY/FRIDAY/FRIDAY/FRIDAY/FRIDAY. lisinopril 10 mg tablet 10 mg PO QAM Rx Instructions: 07/29/22 : ORDERED 10MG BID. FAMILY STATES PT TAKES 10MG IN AM ONLY. Referrals Referrals: Harshal Frias DO [Primary Care Provider] -
[2022-07-29] MEDS ORDERED: MoRPHine SULFATE 4 MG/ML 1 ML CARP\\VIAL IV STA (18:13)
[2022-07-29 18:23] LABS: Basophils # (auto) 0.03 K/uL (0-0.2); Basophils % (auto) 0.2 %; Eosinophils # (auto) 0.01 K/uL (0-0.50); Eosinophils % (auto) 0.1 %; Hematocrit (blood only) 37.8 % (42.0-52.0); Hemoglobin 13.2 g/dl (14.0-18.0); Immature Granulocytes # (auto) 0.05 K/uL (0.01-0.20); Immature Granulocytes % (auto) 0.4 %; Lymphocytes # (auto) 0.64 K/uL (1.2-3.4); Lymphocytes % (auto) 5.2 %; Mean Corpuscular Hemoglobin 32.3 pg (25.0-34.0); Mean Corpuscular Hgb Conc 34.9 g/dL (32.0-36.0); Mean Corpuscular Volume 92.4 fL (80.0-100.0); Mean Platelet Volume 9.9 fL (9.4-12.4); Monocytes # (auto) 0.63 K/uL (0.11-0.59); Monocytes % (auto) 5.1 %; Neutrophils # (auto) 11.03 K/uL (1.40-6.50); Platelet Count 201 K/uL (130-400); RDW Coefficient of Variation 12.3 % (11.5-14.5); RDW Standard Deviation 41.5 fL (36.4-46.3); Red Blood Count 4.09 M/uL (4.70-6.10); White Blood Count 12.39 K/ul (4.8-10.8)
[2022-07-29 18:36] LABS: Albumin Globulin Ratio 1.5 (0.9-2); Albumin Level 3.8 gm/dl (3.4-5.0); BUN Creatinine Ratio 18.6 (10-20); Bilirubin,Total 1.3 mg/dl (0.2-1.0); Calcium 8.7 mg/dl (8.5-10.1); Creatinine Clr Calc Pharmacy 50.5 ml/min; Est GFR (African American) 65.7 ml/min; Est GFR (Non-African American) 56.7 ml/min; Globulin 2.6 gm/dl (2.5-4.0); Potassium 5.1 mmol/L (3.5-5.1); Total Protein 6.4 gm/dl (6.0-8.3)
[2022-07-29 18:43] LABS: Troponin I High Sensitivity 9.9 pg/ml (0-20)
[2022-07-29 18:55] LABS: INR 3.4 (0.9-1.1); Prothrombin Time 33.7 Seconds (9.0-12.0)
--- NOTE | 2022-07-29 19:05 | XRay Report ---
XR pelvis 1-2V routine, XR femur RT 2V routine CLINICAL HISTORY: right hip pain s/p fall from standing TECHNIQUE: A single frontal view of the pelvis was obtained. 2 views of the right femur were obtained . Comparison: Comparison is made to hip radiograph 01/29/2019 FINDINGS: There is an intratrochanteric fracture of the right femur is partially visualized. Prominent degenera tive changes are seen in the bilateral hip joints and lumbar spine. Vascular calcifications are note d. IMPRESSION: Partially visualized is an intratrochanteric fracture of the right femur. ACT 112: Negative or not required by law. Electronically signed by: Abner Shah M.D. 07/29/2022 7:03 PM
--- NOTE | 2022-07-29 19:20 | CT Scan Report ---
CT chest diagnostic wo con CLINICAL HISTORY: right rib pain s/p fall from standing TECHNIQUE: Multidetector row helical CT of the chest was performed. Coronal and sagittal reformations were obtained. Automated dose lowering techniques and/or adjustment according to patient size were u tilized for this exam. CT DOSE: 550.91 mGy.cm Comparison: Comparison is made to CT chest 03/21/2020 FINDINGS: Lungs and pleura: Mild bronchial wall thickening and interstitial thickening is seen. No suspicious p ulmonary nodules. Heart and pericardium: Cardiomegaly is seen with biatrial enlargement. Vessels: Moderate atherosclerotic changes in the aorta and coronary arteries. Pulmonary trunk measure s 38 mm in diameter. The ascending aorta measures 39 mm in diameter. Mediastinum and enedelia: Unremarkable. Chest wall and lower neck: Unremarkable. Abdomen: Fatty atrophy of the pancreas is seen. Bones: There are displaced fractures of the right third, fourth, fifth, sixth, and seventh ribs. Old healed rib fractures are also seen bilaterally. Extensive degenerative changes are seen most prominen t in the right glenohumeral joint. IMPRESSION: 1. Fractures involving the right third, fourth, fifth, sixth, and seventh ribs. 2. Mild interstitial lung disease and pulmonary hypertension. 3. Stable ectasia of the ascending aorta. ACT 112: Negative or not required by law. Electronically signed by: Abner Shah M.D. 07/29/2022 7:17 PM
--- NOTE | 2022-07-29 20:28 | History & Physical Report ---
Patient seen and examined agree with assessment and plan as outlined in the resident's note To summarize patient presents with mechanical falls with no evidence of head injury Mechanical fall secondary to ground-level fall at home with no compounding factors Physical exam reveals right lower extremity externally rotated on exam with no evidence of ecchymosis noted Imaging indicates intertrochanteric fracture of the right femur Orthopedic consultation Patient also has fractures involving the right ribs showed on the chest CT with no evidence of pneumothorax Continue close monitoring and hemodynamics with supportive therapy Date of Service July 29, 2022 Assessment & Plan (1) Closed intertrochanteric fracture of femur: (2) Multiple fractures of rib involving four or more ribs: (3) Hyperlipidemia: (4) Diabetes mellitus type 2 in obese: (5) Glaucoma: (6) Antithrombin III deficiency: (7) Hypertensive heart disease: (8) Obstructive sleep apnea: (9) Hx of deep venous thrombosis: (10) Depression: (11) Atrial fibrillation: (12) SDAT (senile dementia of Alzheimer's type): (13) Hypertension: (14) Chronic rhinitis: (15) Aortic root dilation: (16) Constipation: (17) Anxiety: (18) History of hemorrhagic stroke with residual hemiparesis: (19) Transaminitis: (20) Refusal of blood transfusions as patient is Congregational: Montana Chávez is a 82 year old male with history of chronic (bilateral) hip pain, prostate cancer, obesity, HLD, DM2, Antithrombin III deficiency, Atrial Fibrillation (on Coumadin), Hx of DVT, glaucoma, HTN, PEYTON, Alzheimers dementia, chronic rhinitis, constipation, anxiety, and prior hemorrhagic stroke w/ residual hemiparesis. Right Hip Fracture - S/p ground level fall at home, no compounding factors (no CP/dyspnea/headaches - Pelvis/Femur XR: Partially visualized is an intratrochanteric fracture of the right femur - WBC 12.39, Hgb 13.2 - RLE externally rotated on examination w/ significant TTP of R hip, no ecchymosis or erythema - Patient is Congregational, and patient made wishes known to avoid blood products - [facility] consulted - Warfarin held - NPO at midnight - Tylenol ordered for pain management (Ibuprofen avoided d/t supratherapeutic INR) - Can add Morphine 1-2 mg PRN Right Rib Fractures (Ribs 3-7, non-displaced) - S/p ground level fall at home w/ no compounding factors - Chest CT: Fractures involving the right third, fourth, fifth, sixth, and seventh ribs. - High risk fractures d/t # of contiguous fractures - Virals stable, oxygenating well on room air, non-labored breathing - Encourage incentive spirometry - Continue supportive care (pain management) - Monitor closely for changes in respiratory status Transaminitis - S/p fall, acute hip fracture, and acute rib fracture - Patient has mild elevation of AST/ALT - Suspect d/t acute stress/injury - Continue to monitor Chronic Conditions - Refusal of Blood Transfusion - Patient is Congregational, it is important to patient and family to avoid receipt of blood products - Prostate Cancer - receives Leuprolide from Urology Q24W, PSA stable at last visit, held on admission - HLD - managed with Atorvastatin, ongoing - HTN - Managed with Lisinopril and Amlodipine, continued on admission - DM2 - managed with Metformin at home, ordered SSI inpatient, continue to follow - Antithrombin III Deficiency/Hx DVT - managed with Warfarin (held on admission) - Atrial Fibrillation - regular on exam, managed on Warfarin and Amiodarone 200 mg PO (continued on admission) - Glaucoma - managed on Latanoprost, continued on admission - Constipation - managed with Miralax PO BID PRN, continued on admission FEN status: NPO @ midnight DVT ppx: Anticoagulation held, supratherapeutic INR, possible surgery Isolation: None Dispo:Med/Surg Consults: Ortho History of Present Illness Chief Complaint: Hip Fracture/Fall Primary Care Provider: Harshal Frias DO Saira is an 82M w/ hx of prostate cancer, HLD, DM2 (on Metformin), Antithrombin III Deficiency/DVTs (on Warfarin), Atrial Fibrillation (on Amiodarone), glaucoma, HTN, PEYTON (not on CPAP), Dementia, chronic constipation, anxiety, and prior hemorrhagic stroke w/ residual hemiparesis (January 2022) who presents for evaluation after a ground level fall at home. Patient's provided the history of the event while patient provided supporting details. note that she had left the house briefly for an appointment, normally patient is independent of ADLs and self care at home and only requires assistance with medications. Patient had wanted to go outside to blow some leaves from their driveway and in an effort to start the leaf blower he lost his balance and fell to the ground from standing. This occurred between 12PM and 3PM. arrived home around 3 PM and found her in the driveway on the ground. Patient notes that he was unable to stand up on his own, he attempted to get to the wall outside to pull himself up but was unable. He denies any chest pain, dyspnea, headaches, abdominal pain or visual changes prior to the fall. He notes that he did not hit his head. Patient denies any recent urinary changes, but does not recent constipation, for which he takes Miralax. Patient does not drink any alcohol and has never smoked cigarettes. Patient recently attempted a new medication for memory (Meperidine) and had to discontinue it due to difficulty sleeping and constipation. No other medication changes. EMS Course: Patient received Fentanyl and Zofran en route. ER Course: Patient received Morphine 4 mg Allergies Allergy/AdvReac Type Severity Reaction Status Date / Time meperidine AdvReac Intermediate OVER-SEDATION, Verified 07/29/22 19:58 N/V W/ SYNCOPE sertraline [From Zoloft] AdvReac Intermediate Dizziness Verified 07/29/22 19:58 Home Medications Medication Instructions Recorded Confirmed Type latanoprost 0.005 % eye drops 1 drp OPB HS 06/28/18 07/29/22 History mecobalamin (vitamin B12) 1,000 1,000 mcg PO QAM 03/21/20 07/29/22 History mcg chewable tablet leuprolide acetate (6 month) 45 mg 45 mg IM Q24W #1 ea 04/25/20 07/29/22 Rx intramuscular syringe kit (Lupron Depot) warfarin 3 mg tablet 4.5 mg PO WK 06/18/21 07/29/22 History blood sugar diagnostic #100 ea 02/25/22 06/28/22 Rx carvedilol 6.25 mg tablet 6.25 mg PO BID #180 tabs 03/01/22 07/29/22 Rx amiodarone 200 mg tablet 200 mg PO QAM #90 tabs 03/18/22 07/29/22 Rx metformin 500 mg tablet 500 mg PO BID #180 tabs 04/08/22 07/29/22 Rx amlodipine 2.5 mg tablet 2.5 mg PO DAILY #90 tabs 06/28/22 07/29/22 Rx atorvastatin 40 mg tablet 40 mg PO HS #90 tabs 07/17/22 07/29/22 Rx lisinopril 10 mg tablet 10 mg PO QAM 07/29/22 07/29/22 History polyethylene glycol 3350 17 gram 17 g PO BID PRN Constipation 07/29/22 07/29/22 History oral powder packet (Miralax) warfarin 3 mg tablet 3 mg PO 6XWK 07/29/22 07/29/22 History Past Med/Surg History Medical History (Updated 07/29/22 @ 21:37 by Jose Luis Sykes DO) Acute spont intraparenchymal hemorrhage assoc w/ hypertension Antithrombin III deficiency FOLLOWS PCP > DR. TAN/LOC - ON COUMADIN Blurred vision, bilateral Cataract RT/LEFT Chest pain Constipation Diabetes mellitus type 2 in obese Dizziness Forgetfulness "RELATED TO AGE" Glaucoma LEFT EYE History of adenomatous polyp of colon History of atrial fibrillation History of hemorrhagic stroke with residual hemiparesis History of prostate cancer History of skin cancer MELANOMA AND BASAL CELL Hx of deep venous thrombosis SEVERAL YEARS AGO, REASON FOR COUMADIN Hx pulmonary embolism WITH DVT ? YEAR "A FEW YEARS AGO" Hyperlipidemia Hypertension Hypertensive heart disease preserved LV function Hypertensive urgency Obstructive sleep apnea no device used (could not tolerate) Osteoarthritis Prostate cancer Refusal of blood transfusions as patient is Congregational Thoracic ascending aortic aneurysm UNSURE ABOUT DX Surgical History History of cardioversion (11/2018) X 4--last 06/22/21 @ [facility] History of colonoscopy History of local excision of skin lesion MULTIPLE REMOVAL History of nasal septoplasty multiple-with Celon turbinate reduction History of tooth extraction Hx of colonoscopy Hx of prostate biopsy Family History Mother Venous embolism and thrombosis of deep vessels of lower extremity Cancer Father Stroke syndrome Other No family history of adverse response to anesthesia No family history of bleeding disorder No pertinent family history Denies family history of Ovarian cancer Prostate cancer Coronary heart disease Alzheimer disease Bipolar disorder Breast cancer COPD (chronic obstructive pulmonary disease) Colorectal cancer Asthma Social History Smoking Status: Never smoker Second Hand Exposure: No; Hx Alcohol Use: No Hx Substance Use: No Preferred Language: Tuvaluan Communication Ability: Effective Visual Impairment: No Limitations Hearing Ability: Normal Stitch Burnisher Required: No Beliefs That Will Affect Care: None marital status: Current Living Situation: Spouse current occupational status: retired current occupation: Worked at [employer] How many Children do You have: 2 Feels Safe at Home: Yes Childhood Exposure to Second-Hand Smoke: No caffeine: No during the past year weight has: remained stable Dental Care, Regularly: Yes Physical Activity Frequency: Does not Exercise Seatbelt Use: always Sunscreen Use: No Assistive Devices: None Review of Systems Review of Systems: As per HPI. Physical Exam Physical Exam: Gen: NAD, fatigued, interactive HEENT: Supple, no LAD, no JVD Resp:Non-labored, no wheezing/rhonchi/rales, CTAB, TTP of right ribs 3-7 (no ecchymosis, displacement, or erythema) CV:RRR, normal S1/S2, no M/R/G Abd: Soft, non-distended, no TTP, normoactive bowels, no masses Extr: 2+ dp bilaterally, 1+ edema bilaterally, RLE externally rotated, no ecchymosis or discloration of right foot Hip: No erythema or ecchymosis, TTP of right hip Skin: No rashes lesions or erythema Results & Data Results & Data ([facility]) Vital Signs (Past 12 Hours) Vital Signs Temp Pulse Pulse Resp BP BP Pulse Ox 07/29/22 20:10 66 109/69 99 07/29/22 19:24 88 L 07/29/22 19:11 62 20 91/59 L 93 07/29/22 17:30 69 07/29/22 17:31 36.5 C 68 14 115/70 95 O2 Del Method O2 Flow Rate 07/29/22 20:10 Nasal Cannula 3 07/29/22 19:24 Nasal Cannula 0 07/29/22 19:11 Room Air 07/29/22 17:30 07/29/22 17:31 Room Air Diagnostic Findings Chest CT 07/29/22 17:56 IMPRESSION: 1. Fractures involving the right third, fourth, fifth, sixth, and seventh ribs. 2. Mild interstitial lung disease and pulmonary hypertension. 3. Stable ectasia of the ascending aorta. Femur X-Ray 07/29/22 17:56 FINDINGS: There is an intratrochanteric fracture of the right femur is partially visualized. Prominent degenerative changes are seen in the bilateral hip joints and lumbar spine. Vascular calcifications are noted. IMPRESSION: Partially visualized is an intratrochanteric fracture of the right femur. Pelvis X-Ray 07/29/22 17:56 FINDINGS: There is an intratrochanteric fracture of the right femur is partially visualized. Prominent degenerative changes are seen in the bilateral hip joints and lumbar spine. Vascular calcifications are noted. IMPRESSION: Partially visualized is an intratrochanteric fracture of the right femur. Resident Activity Tracking Resident Involvement: Resident Care Provided Care Provided: Adult [facility] (11) Atrial fibrillation Atrial fibrillation type: chronic Qualified Code(s): I48.2 - Chronic atrial fibrillation (16) Constipation Constipation type: unspecified constipation type Qualified Code(s): K59.00 - Constipation, unspecified
[2022-07-29] MEDS ORDERED: POLYETHYLENE (MIRALAX) 17 GM PACK PO PRN ×2 (21:05→23:55)
[2022-07-29] MEDS ORDERED: ACETAMINOPHEN 325 MG TAB PO PRN (21:05)
[2022-07-30] MEDS ORDERED: CARBOHYDRATES FOR HYPOGLYCEMIA PO PRN (00:15)
[2022-07-30] MEDS ORDERED: GLUCOSE 40% GEL 15 GM TUBE PO PRN (00:15)
[2022-07-30] MEDS ORDERED: GLUCAGON FOR INJ 1 MG VIAL IM PRN (00:15)
[2022-07-30] MEDS ORDERED: DEXTROSE 50% 50 ML SYRINGE IV PRN (00:15)
[2022-07-30] MEDS ORDERED: GLUCOSE 10 TAB/TUBE PO PRN (00:15)
[2022-07-30] MEDS: LACTATED RINGER'S 1,000 ML IV SCH ×3 (00:52→17:13)
[2022-07-30] MEDS: INSULIN ASPART PER UNIT CHARGE SC SCH ×3 (05:52→17:53)
[2022-07-30] MEDS: AMIODARONE 200 MG TAB PO SCH (08:26)
[2022-07-30] MEDS ORDERED: lisinopril 10 MG TAB PO SCH (09:00)
[2022-07-30] MEDS ORDERED: amLODIPine BESYLATE 5 MG TAB PO SCH (09:00)
[2022-07-30 10:29] LABS: INR 2.8 (0.9-1.1); Prothrombin Time 28.2 Seconds (9.0-12.0)
--- NOTE | 2022-07-30 10:41 | Anesthesiology Consultation ---
Date of Service July 30, 2022 Assessment & Plan Chart Review Chart Review: Acceptable Risk for Surgery and Patient NOT seen in Pre Admission Testing History Surgery Operation Date: 07/30/22 09:00 Proposed Procedures p Intramedullary Trochanteric Nail Hip Right - Beto Feliz MD Height/Weight Height: 5 ft 11 in Weight: 83.6 kg Allergies Allergy/AdvReac Type Severity Reaction Status Date / Time meperidine AdvReac Intermediate OVER-SEDATION, Verified 07/29/22 19:58 N/V W/ SYNCOPE sertraline [From Zoloft] AdvReac Intermediate Dizziness Verified 07/29/22 19:58 Medications Home Medications Medication Instructions Recorded Confirmed Last Taken latanoprost 0.005 % eye drops 1 drp OPB HS 06/28/18 07/29/22 04/12/22 mecobalamin (vitamin B12) 1,000 1,000 mcg PO QAM 03/21/20 07/29/22 04/12/22 mcg chewable tablet leuprolide acetate (6 month) 45 mg 45 mg IM Q24W #1 ea 04/25/20 07/29/22 02/08/22 intramuscular syringe kit (Lupron Depot) warfarin 3 mg tablet 4.5 mg PO WK 06/18/21 07/29/22 04/11/22 blood sugar diagnostic #100 ea 02/25/22 06/28/22 Unknown carvedilol 6.25 mg tablet 6.25 mg PO BID #180 tabs 03/01/22 07/29/22 04/12/22 amiodarone 200 mg tablet 200 mg PO QAM #90 tabs 03/18/22 07/29/22 04/12/22 metformin 500 mg tablet 500 mg PO BID #180 tabs 04/08/22 07/29/22 04/12/22 amlodipine 2.5 mg tablet 2.5 mg PO DAILY #90 tabs 06/28/22 07/29/22 Unknown atorvastatin 40 mg tablet 40 mg PO HS #90 tabs 07/17/22 07/29/22 Unknown lisinopril 10 mg tablet 10 mg PO QAM 07/29/22 07/29/22 Unknown polyethylene glycol 3350 17 gram 17 g PO BID PRN Constipation 07/29/22 07/29/22 Unknown oral powder packet (Miralax) warfarin 3 mg tablet 3 mg PO 6XWK 07/29/22 07/29/22 Unknown Active Medications Generic Name Dose Route Start Last Admin Trade Name Freq PRN Reason Stop Dose Admin Acetaminophen 650 mg 07/29/22 21:05 07/29/22 21:51 Acetaminophen 325 Mg Tab PO 08/28/22 21:04 650 mg Q4H PRN Administration pain/fever Amiodarone HCl 200 mg 07/30/22 09:00 07/30/22 08:26 Amiodarone 200 Mg Tab PO 08/29/22 08:59 200 mg QAM AILEEN Administration Lactated Ringer's 1,000 mls @ 100 mls/hr 07/30/22 00:15 07/30/22 00:52 Lr IV 08/29/22 00:14 100 mls/hr .Q10H AILEEN Administration Insulin Aspart 0 units 07/30/22 06:00 07/30/22 05:52 Insulin Aspart Per Unit SC 08/29/22 05:59 Not Given Q6 AILEEN Past Medical History Medical History Acute spont intraparenchymal hemorrhage assoc w/ hypertension Antithrombin III deficiency FOLLOWS PCP > DR. TAN/LOC - ON COUMADIN Blurred vision, bilateral Cataract RT/LEFT Chest pain Constipation Diabetes mellitus type 2 in obese Dizziness Forgetfulness "RELATED TO AGE" Glaucoma LEFT EYE History of adenomatous polyp of colon History of atrial fibrillation History of hemorrhagic stroke with residual hemiparesis History of prostate cancer History of skin cancer MELANOMA AND BASAL CELL Hx of deep venous thrombosis SEVERAL YEARS AGO, REASON FOR COUMADIN Hx pulmonary embolism WITH DVT ? YEAR "A FEW YEARS AGO" Hyperlipidemia Hypertension Hypertensive heart disease preserved LV function Hypertensive urgency Obstructive sleep apnea no device used (could not tolerate) Osteoarthritis Prostate cancer Refusal of blood transfusions as patient is [employer]ianism Thoracic ascending aortic aneurysm UNSURE ABOUT DX Past Family History Family History Mother Venous embolism and thrombosis of deep vessels of lower extremity Cancer Father Stroke syndrome Other No family history of adverse response to anesthesia No family history of bleeding disorder No pertinent family history Denies family history of Ovarian cancer Prostate cancer Coronary heart disease Alzheimer disease Bipolar disorder Breast cancer COPD (chronic obstructive pulmonary disease) Colorectal cancer Asthma Past Surgical History Surgical History History of cardioversion (11/2018) X 4--last 06/22/21 @ [facility] History of colonoscopy History of local excision of skin lesion MULTIPLE REMOVAL History of nasal septoplasty multiple-with Celon turbinate reduction History of tooth extraction Hx of colonoscopy Hx of prostate biopsy Social History Smoking Status: Never smoker Do You Dip or Chew Tobacco: No Hx Alcohol Use: No Alcohol type: wine alcohol intake frequency: holidays/special occasions only Hx Substance Use: No substance use type: does not use Physical Exam Vital Signs Last Vital Signs Temp 36.9 C 07/30/22 07:37 Pulse 71 07/30/22 09:06 Resp 16 07/30/22 07:37 BP 91/57 L 07/30/22 09:06 Pulse Ox 97 07/30/22 09:06 O2 Del Method Nasal Cannula 07/30/22 09:06 O2 Flow Rate 2 07/30/22 09:06 Testing Laboratory Results 07/29/22 17:43 07/29/22 17:43 PT 28.2 Seconds (9.0-12.0) H 07/30/22 09:30 INR 2.8 (0.9-1.1) H 07/30/22 09:30 07/30/22 07/30/22 05:49 00:31 POC Glucose 116 H 123 H
--- NOTE | 2022-07-30 12:24 | Electrocardiogram Report ---
Test Reason : Blood Pressure : / mmHG Vent. Rate : 067 BPM Atrial Rate : 067 BPM P-R Int : 274 ms QRS Dur : 082 ms QT Int : 266 ms P-R-T Axes : 087 016 032 degrees QTc Int : 281 ms Poor data quality, interpretation may be adversely affected Sinus rhythm with 1st degree A-V block Diffuse Minor Nonspecific ST and T wave abnormality Abnormal ECG When compared with ECG of 13-APR-2022 12:15, T-wave inversion in Anterior leads no longer present Confirmed by Morgan Aguilar ([id number]) on 07/30/2022 12:23:26 PM Referred By: REFERRED SELF Confirmed By:Morgan Aguilar
--- NOTE | 2022-07-30 13:36 | Hospitalist Progress Note ---
Date of Service July 30, 2022 Assessment & Plan (1) Closed intertrochanteric fracture of femur: Plan: Acute - S/p ground level fall at home, no compounding factors - Preop hgb 13.2 - RLE externally rotated on examination w/ significant TTP of R hip, no ecchymosis or erythema - Patient is [place], and patient made wishes known to avoid blood products - [facility] Orthopedics consulted, appreciate assistance - Warfarin held but still elevated 07/30 at 2.8, given a dose of Vitamin K 2.5mg PO x1 - Surgery postponed until 07/31, repeat INR ordered - Tylenol ordered for pain management (Ibuprofen avoided d/t supratherapeutic INR) - Can add Morphine 2mg IV PRN, but hasn't required any additional pain management at present - PT/OT eval pod#1 and case management to assist in dc planning - NPO after MN (2) Multiple fractures of rib involving four or more ribs: Plan: Acute - High risk fractures R ribs #3-7 - Virals stable, oxygenating well on room air, non-labored breathing - Encourage incentive spirometry - Continue supportive care (pain management) - Monitor closely for changes in respiratory status (3) Transaminitis: Plan: Acute - S/p fall, acute hip fracture, and acute rib fracture - Patient has mild elevation of AST/ALT - Suspect d/t acute stress/injury - Continue to monitor (4) Diabetes mellitus type 2 in obese: Plan: - managed with Metformin at home - ordered SSI inpatient - Accuchecks AC and HS (5) Hx of deep venous thrombosis: Plan: Antithrombin III Deficiency/Hx DVT - managed with Warfarin, supratherapeutic INR of 3.4 - held currently for planned surgery and given dose of Vitamin K 2.5mg PO x1 on 07/30 (6) SDAT (senile dementia of Alzheimer's type): Plan: - Per last primary care note from 06/28/22, he was to be on Memantine 5mg BID which is not on his med rec - I have ordered this to start this evening (07/30/22) (7) Paroxysmal atrial fibrillation: Plan: - Examines in NSR on exam - managed on Warfarin (held) and Amiodarone 200 mg (continued) - Also on Coreg 6.25mg BID which is on hold (8) Hypertension: Plan: - Managed with Lisinopril, Coreg, and Amlodipine, continued on admission - BP meds currently on hold d/t soft pressures Plan Repeat labs in AM. Above plan of care to be d/w Dr. Ventura. Admission and Anticipated Discharge Date Admission Date: July 29, 2022 Subjective Pt was seen on daily rounds this morning. He is resting in bed, has no complaints. Admits to some discomfort in ribs when he takes deep breaths. No cp or dyspnea. He is waiting for orthopedic evaluation to determine plan for surgical correction of right hip fracture. Physical Exam Physical Exam: GENERAL: 82 yo elderly wd/wn wm. Awake, alert. NAD. LUNGS: Clear to auscultation bilaterally. CARDIOVASCULAR: Regular rate and rhythm with 2-3/6 JOVITA EXTREMITIES: RLE NV intact. 1+ b/l LE. RLE is externally rotated and shortened. Results & Data Results & Data ([facility]) Vital Signs (Past 12 Hours) Vital Signs Temp Pulse Resp BP BP Pulse Ox O2 Del Method 07/30/22 11:14 75 95/59 L 94 Nasal Cannula 07/30/22 09:06 71 91/57 L 97 Nasal Cannula 07/30/22 07:37 36.9 C 64 16 93/58 L 99 Nasal Cannula 07/30/22 07:35 65 88/56 L 95 Nasal Cannula O2 Flow Rate 07/30/22 11:14 2 07/30/22 09:06 2 07/30/22 07:37 2 07/30/22 07:35 2 Laboratory Results INR=2.8 PG Care Time/CCT Total # of Minutes Spent Total Time Spent with Patient: Total time spent is greater than 50% in coordination of care (as documented) at patient's floor/unit and/or counseling patient: Coding Level of Care Code 91016 SUB INP/OBS CARE 3/50MIN Diagnoses Closed intertrochanteric fracture of femur S72.143A Multiple fractures of rib involving four or more ribs S22.49XA Transaminitis R74.01 Diabetes mellitus type 2 in obese E11.69; E66.9 Hx of deep venous thrombosis Z86.718 SDAT (senile dementia of Alzheimer's type) G30.1; F02.80 Paroxysmal atrial fibrillation I48.0 Hypertension I10
--- NOTE | 2022-07-30 16:20 | Orthopedic Consultation ---
Date of Service July 30, 2022 Assessment & Plan (1) Closed intertrochanteric fracture of femur: -This will need surgery to fix. Will be IM nail right femur. Discussed this at length with him and his . Explained risks and benefits of procedure. Risks discussed included bleeding, infection, hardware complications, delayed wound healing, nonunion/malunion, neurovascular injury, blood clots, . Explained expected recovery times post operatively. Pt and agreed to proceed with surgery -Will plan on proceeding with surgery tomorrow afternoon. NPO after midnight. Low dose of Vitamin K would be beneficial to mitigate bleeding risk. Will follow up with INR in AM. Appreciate Medicine team assistance. Pt seen and discussed w/ Dr. Feliz. History of Present Illness Reason for Consultation: Right Hip Fracture . Requesting Physician: Kerwin Ventura . 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 He was in his garage and lost his balance resulting in a fall directly on his right side. He was brought to [facility] ED where work up showed a right intertrochanteric femur fracture and multiple right sided rib fractures. We are consulted regarding management of his hip fracture. He lives at home with his and prior to the fall was ambulating independently without assistive devices. Per his he is relatively independent with his ADLs. Of note, they are Jehovah's Witnesses and refuse blood transfusions. On bedside examination his pain is currently controlled, worst pain is in his ribs. Allergies Allergy/AdvReac Type Severity Reaction Status Date / Time meperidine AdvReac Intermediate OVER-SEDATION, Verified 07/29/22 19:58 N/V W/ SYNCOPE sertraline [From Zoloft] AdvReac Intermediate Dizziness Verified 07/29/22 19:58 Home Medications Medication Instructions Recorded Confirmed Type latanoprost 0.005 % eye drops 1 drp OPB HS 06/28/18 07/29/22 History mecobalamin (vitamin B12) 1,000 1,000 mcg PO QAM 03/21/20 07/29/22 History mcg chewable tablet leuprolide acetate (6 month) 45 mg 45 mg IM Q24W #1 ea 04/25/20 07/29/22 Rx intramuscular syringe kit (Lupron Depot) warfarin 3 mg tablet 4.5 mg PO WK 06/18/21 07/29/22 History blood sugar diagnostic #100 ea 02/25/22 06/28/22 Rx carvedilol 6.25 mg tablet 6.25 mg PO BID #180 tabs 03/01/22 07/29/22 Rx amiodarone 200 mg tablet 200 mg PO QAM #90 tabs 03/18/22 07/29/22 Rx metformin 500 mg tablet 500 mg PO BID #180 tabs 04/08/22 07/29/22 Rx amlodipine 2.5 mg tablet 2.5 mg PO DAILY #90 tabs 06/28/22 07/29/22 Rx atorvastatin 40 mg tablet 40 mg PO HS #90 tabs 07/17/22 07/29/22 Rx lisinopril 10 mg tablet 10 mg PO QAM 07/29/22 07/29/22 History polyethylene glycol 3350 17 gram 17 g PO BID PRN Constipation 07/29/22 07/29/22 History oral powder packet (Miralax) warfarin 3 mg tablet 3 mg PO [id number] 07/29/22 07/29/22 History Past Med/Surg History Medical History Acute spont intraparenchymal hemorrhage assoc w/ hypertension Antithrombin III deficiency FOLLOWS PCP > DR. TAN/LOC - ON COUMADIN Blurred vision, bilateral Cataract RT/LEFT Chest pain Constipation Diabetes mellitus type 2 in obese Dizziness Forgetfulness "RELATED TO AGE" Glaucoma LEFT EYE History of adenomatous polyp of colon History of atrial fibrillation History of hemorrhagic stroke with residual hemiparesis History of prostate cancer History of skin cancer MELANOMA AND BASAL CELL Hx of deep venous thrombosis SEVERAL YEARS AGO, REASON FOR COUMADIN Hx pulmonary embolism WITH DVT ? YEAR "A FEW YEARS AGO" Hyperlipidemia Hypertension Hypertensive heart disease preserved LV function Hypertensive urgency Obstructive sleep apnea no device used (could not tolerate) Osteoarthritis Prostate cancer Refusal of blood transfusions as patient is Taoism Thoracic ascending aortic aneurysm UNSURE ABOUT DX Surgical History History of cardioversion (11/2018) X 4--last 06/22/21 @ [facility] History of colonoscopy History of local excision of skin lesion MULTIPLE REMOVAL History of nasal septoplasty multiple-with Celon turbinate reduction History of tooth extraction Hx of colonoscopy Hx of prostate biopsy Family History Mother Venous embolism and thrombosis of deep vessels of lower extremity Cancer Father Stroke syndrome Other No family history of adverse response to anesthesia No family history of bleeding disorder No pertinent family history Denies family history of Ovarian cancer Prostate cancer Coronary heart disease Alzheimer disease Bipolar disorder Breast cancer COPD (chronic obstructive pulmonary disease) Colorectal cancer Asthma Social History Smoking Status: Never smoker Second Hand Exposure: Yes; Do You Dip or Chew Tobacco: No; Hx Alcohol Use: No Hx Substance Use: No Preferred Language: Frisian Communication Ability: Effective Visual Impairment: No Limitations Hearing Ability: Normal Garment Steamer Required: No Beliefs That Will Affect Care: Latter-Day Latter-Day Beliefs: Pt is Jehova's witness will not use blood products marital status: Current Living Situation: Spouse current occupational status: retired current occupation: Worked at [id number] How many Children do You have: 2 Other Information That Helps Us Care for You: No Feels Safe at Home: Yes Safety Concerns: Feels Safe At This Time Childhood Exposure to Second-Hand Smoke: No caffeine: No during the past year weight has: remained stable Dental Care, Regularly: Yes Physical Activity Frequency: Does not Exercise Seatbelt Use: always Sunscreen Use: No Assistive Devices: Cane and Walker Review of Systems All systems reviewed & are unremarkable except as noted in HPI & below. Physical Exam General: Pleasant 82 y/o/m resting in bed comfortably in NAD. Answering questions appropriately . RLE: He has tenderness to lateral hip. Worsening lateral hip pain with passive log roll. RLE is shortened and externally rotated. Distally N/V/I. Results & Data Results & Data Laboratory Results Reviewed - Elevated INR secondary to baseline Warfarin, most recent level 2.8. Hgb Stable at 13.2. Mild transaminitis. Labs otherwise unremarkable. Diagnostic Findings Right Femur XRs reviewed and agree that there is evidence of intertrochanteric femur fracture at his right hip. PG Care Time/CCT Total # of Minutes Spent Total Time Spent with Patient: Total time spent is greater than 50% in coordination of care (as documented) at patient's floor/unit and/or counseling patient: Coding Level of Care Code 03363 IN/OBS CONSULT LVL 5,80M Diagnoses Closed intertrochanteric fracture of femur S72.143A
[2022-07-30] MEDS ORDERED: PHYTONADIONE 5 MG TAB PO STA (16:22)
[2022-07-30] MEDS ORDERED: ATORVASTATIN 40 MG TAB PO SCH (21:00)
[2022-07-30] MEDS: MEMANTINE HCL 5 MG TAB PO SCH (21:07)
[2022-07-30] MEDS: LATANOPROST 0.005% OP SOLN 2.5 ML BTL OPB SCH (21:07)
[2022-07-31] MEDS: INSULIN ASPART PER UNIT CHARGE SC SCH ×4 (00:17→18:25)
[2022-07-31] MEDS: LACTATED RINGER'S 1,000 ML IV SCH (01:09)
[2022-07-31] MEDS ORDERED: fentaNYL citrate PF 100 MCG/2 ML VIAL IV ONE ×2 (06:59→09:04)
[2022-07-31] MEDS ORDERED: ROCURONIUM BROMIDE 10 MG/ML 5 ML VIAL IV ONE (06:59)
[2022-07-31] MEDS ORDERED: fentaNYL citrate PF 100 MCG/2 ML VIAL ONE ×2 (07:56→09:05)
[2022-07-31 08:00] LABS: Base Excess VBG 0.7 mEq/L; HCO3 VBG 25 mmol/L; Oxygen Saturation VBG < 60.0 %; PCO2 VBG 40 mmHg (38-50); PO2 VBG 28 mmHg; pH VBG 7.41 (7.36-7.41)
[2022-07-31] MEDS ORDERED: RAPID SEQUENCE INDUCTION BAG ONE (08:00)
[2022-07-31 08:04] LABS: Basophils # (auto) 0.03 K/uL (0-0.2); Basophils % (auto) 0.3 %; Eosinophils % (auto) 1.1 %; Hematocrit (blood only) 24.9 % (42.0-52.0); Hemoglobin 8.6 g/dl (14.0-18.0); Immature Granulocytes # (auto) 0.07 K/uL (0.01-0.20); Immature Granulocytes % (auto) 0.8 %; Lymphocytes # (auto) 1.05 K/uL (1.2-3.4); Lymphocytes % (auto) 11.3 %; Mean Corpuscular Hemoglobin 32.5 pg (25.0-34.0); Mean Corpuscular Hgb Conc 34.5 g/dL (32.0-36.0); Mean Platelet Volume 9.5 fL (9.4-12.4); Monocytes # (auto) 0.88 K/uL (0.11-0.59); Monocytes % (auto) 9.4 %; Neutrophils % (auto) 77.1 %; Platelet Count 139 K/uL (130-400); RDW Coefficient of Variation 13.1 % (11.5-14.5); RDW Standard Deviation 44.4 fL (36.4-46.3); Red Blood Count 2.65 M/uL (4.70-6.10); White Blood Count 9.33 K/ul (4.8-10.8)
--- NOTE | 2022-07-31 08:06 | Communication Note ---
Date of Service: July 31, 2022 Subj- Responded to code purple that was paged over the hospital intercom. Upon arrival to the bedside, patient was found to be obtunded and being bagged with BVM. Per bedside nursing and care staff, patient was last seen well several hours prior but was found to be poorly responsive this morning on a.m. check with SpO2 check in the 50s. His blood sugar earlier in the morning was in the 120s. He had reportedly not received any insulin this AM. He had not received any opioids. He had not received any other medications prior to this event. Obj- At the bedside, patient is obtunded with BVM ongoing, blood pressure 130/80, heart rate in the 80s, saturation 77% prior to application of BiPAP - improved to low 90s with minimal increase in responsiveness. He is nonresponsive to verbal or tactile stimuli. Neurodirect pupillary reflexes are sluggish, corneal reflex intact. No posturing or rigidity noted in UEs. Cardiacnormal rate, regular rhythm; heart sounds are difficult to auscultate, but what of could be heard, normal rate with regular rhythm, no appreciable murmurs. Respiratorywith ongoing BVM, coarse breath sounds are appreciated throughout all lung campos. ExtremitiesSCDs in place in the lower extremities; capillary refill sluggish in approximately 4 to 5 seconds. Abdominalnondistended, no rebound or guarding. Patient's chart was reviewed; noted that he was admitted for a fall and trochanteric fracture alongside rib fractures. He does have a history of prior hemorrhagic stroke. He is on Coumadin for paroxysmal atrial fibrillation as well as prior history of DVT; INR was 2.8 yesterday, did receive 2.5 mg of p.o. vitamin K. A&P- Acute hypoxic respiratory failure, acute encephalopathystat labs were sent, including an ABG and CXR, ECG. Given fall, anticoagulation, h/o hemorrhagic bleed, prior DVT - differential is wide for hypoxia and includes acute SPACE SCHEDULER insult, PE, acute hemorrhage/anemia resulting in encephalopathy. Given patient's respiratory failure and concerns for an inability to protect his airway, gas burner operator was contacted for intubation evaluation. Patient was intubated. BP, HR stable at this time but being closely monitored. CT of the head, chest, abdomen pelvis, and cervical spine were ordered alongside ECG and CXR. Please see gas burner operator note for further work-up. Patient's family was co ntacted by nursing staff.
--- NOTE | 2022-07-31 08:11 | XRay Report ---
XR chest 1V portable CLINICAL HISTORY: s/p intubation TECHNIQUE: Single frontal radiograph of the chest was obtained. Comparison: Comparison is made to chest radiograph 06/17/2021 FINDINGS: Endotracheal tube terminates 43 mm from the thor. Enteric tube side-port and tip lie below the diap hragm. Cardiomegaly is noted. Emphysema is seen. There is left sided airspace opacity and prominence of the vasculature. A left pleural effusion cannot be excluded. IMPRESSION: 1. Satisfactory appearance of lines and tubes. 2. Cardiomegaly and mild pulmonary edema. 3. Left pleural effusion and left airspace opacity which likely represents atelectasis with or witho ut superimposed aspiration/pneumonia. ACT 112: Negative or not required by law. Electronically signed by: Abner Shah M.D. 07/31/2022 8:10 AM
[2022-07-31] MEDS ORDERED: NOREPINEPHRINE/D5W 4 MG/250 ML IV ONE (08:15)
[2022-07-31 08:22] LABS: iSTAT Allen Test Pass; iSTAT Art Bld Gas pCO2 Correct 29 mmHg (35-46); iSTAT Art Bld Gas pH Corrected 7.492 (7.35-7.45); iSTAT Arterial Blood Gas HCO3 22 meg/L (19-24); iSTAT Arterial Blood Gas pCO2 28 mmHg (35-46); iSTAT Arterial Blood Gas pO2 45 mmHg (80-95); iSTAT Arterial Blood Gas pO2 C 47; iSTAT Carbon Dioxide 23 mmol/L (24-31); iSTAT FiO2 100 %; iSTAT Hematocrit 22 % (42-52); iSTAT Hemoglobin 7.5 g/dl (14.0-18.0); iSTAT Site L Radial; iSTAT Sodium 129 mmol/L (135-144)
[2022-07-31] MEDS ORDERED: STAT IV Infusion **Titration per Protocol STA ×3 (08:37→09:41)
[2022-07-31] MEDS ORDERED: ALBUT/IPRATROP 3MG/0.5MG NEB 3 ML VIAL NEB STA (08:41)
[2022-07-31 08:42] LABS: INR 1.6 (0.9-1.1); Prothrombin Time 16.7 Seconds (9.0-12.0)
[2022-07-31 08:46] LABS: Albumin Globulin Ratio 1.5 (0.9-2); Albumin Level 2.8 gm/dl (3.4-5.0); BUN Creatinine Ratio 21.4 (10-20); Bilirubin,Total 1.8 mg/dl (0.2-1.0); Calcium 8.1 mg/dl (8.5-10.1); Creatinine Clr Calc Pharmacy 27.1 ml/min; Est GFR (Non-African American) 26.7 ml/min; Globulin 1.9 gm/dl (2.5-4.0); Magnesium 1.6 mg/dl (1.7-2.4); Potassium 5.4 mmol/L (3.5-5.1); Total Protein 4.7 gm/dl (6.0-8.3)
--- NOTE | 2022-07-31 08:46 | Orthopedic Progress Note ---
Date of Service July 31, 2022 Assessment & Plan (1) Closed intertrochanteric fracture of femur: - Will have to postpone surgery until he is further worked up and stabilized. Appreciate Medicine and Critical Care teams' assistance in his care. -Will follow along, call with questions Discussed w/ Dr. Tray Lugo Found obtunded, hypoxic, overall clinically unstable this morning. He was transferred to the ICU and intubated. Further work up is pending . Review of Systems All systems reviewed & are unremarkable except as noted in HPI & below. Physical Exam General: 82 y/o/m intubated and unresponsive in bed. Results & Data Results & Data Laboratory Results Reviewed, full AM labs pending. Diagnostic Findings No new orthopedic imaging. PG Care Time/CCT Total # of Minutes Spent Total Time Spent with Patient: Total time spent is greater than 50% in coordination of care (as documented) at patient's floor/unit and/or counseling patient: Coding Level of Care Code 74792 SUB INP/OBS CARE 2/35MIN Diagnoses Closed intertrochanteric fracture of femur S72.143A
[2022-07-31] MEDS: NOREPINEPHRINE/D5W 4 MG/250 ML PLCT IV SCH ×2 (08:58→23:10)
[2022-07-31] MEDS ORDERED: MIDAZOLAM BOLUS FROM BAG IV PRN (09:04)
[2022-07-31] MEDS ORDERED: fentaNYL BOLUS from BAG IV PRN (09:04)
[2022-07-31] MEDS ORDERED: VECURONIUM BROMIDE 10 MG VIAL IV STA (09:04)
[2022-07-31] MEDS ORDERED: CISATRACURIUM BESYLATE IV SOLN 2 MG/ML 10 ML VIAL IV STA (09:04)
[2022-07-31] MEDS ORDERED: MIDAZOLAM HCL 1 MG/ML 2ML VIAL IV STA (09:04)
[2022-07-31] MEDS ORDERED: MIDAZOLAM HCL 1 MG/ML 2ML VIAL ONE (09:05)
[2022-07-31] MEDS ORDERED: VECURONIUM BROMIDE 10 MG VIAL IV ONE (09:08)
[2022-07-31] MEDS: AMIODARONE 200 MG TAB PO SCH (09:14)
[2022-07-31] MEDS: carvediloL 6.25 MG TAB PO SCH (09:14)
[2022-07-31] MEDS: MEMANTINE HCL 5 MG TAB PO SCH (09:14)
[2022-07-31] MEDS ORDERED: MIDAZOLAM HCL 125 MG/250 ML BAG IV SCH (09:15)
[2022-07-31] MEDS ORDERED: fentaNYL citrate 2,500 MCG/250 ML BAG IV SCH (09:15)
--- NOTE | 2022-07-31 09:28 | XRay Report ---
SINGLE VIEW CHEST CLINICAL HISTORY: Central venous catheter placement. FINDINGS: An AP, portable, supine chest radiograph is compared to study dated 07/31/2022 and correlated with chest CT dated 07/29/2022. The examination is degraded by portable technique and patient rotation . A left internal jugular central venous catheter has been placed. The tip of the catheter projects over the confluence of the innominate veins. An endotracheal tube and enteric tube are unchanged in p osition. The heart is mildly enlarged noting atherosclerotic calcification of the thoracic aorta. The pulmonary vasculature is not congested. There is left basilar consolidation and a small left pleural effusion. Increasing atelectasis is seen at the right lung base. No pneumothorax is seen. The skelet al structures are osteopenic. There are several right-sided rib fractures. Advanced arthritic change is seen in the right shoulder. IMPRESSION: 1. A left internal jugular central venous catheter has been placed as above. No pneumothorax is seen post procedure. 2. The remaining lines and tubes are unchanged. 3. There is left basilar consolidation and a small right pleural effusion. This is new from there are 07/29/2022 CT scan. ACT 112: Negative or not required by law. Electronically signed by: Saleem Doll M.D. 07/31/2022 9:27 AM
[2022-07-31] MEDS ORDERED: PHYTONADIONE 5 MG in DEXTROSE 5% 50 ML IV ONE (09:30)
--- NOTE | 2022-07-31 09:31 | Procedure Note ---
Procedure Note Date of Service July 31, 2022 Supervising Physician Co-Signing Physician Notes INTUBATION PROCEDURE NOTE: Dr. Timothy Acuña A time-out was completed verifying correct patient, procedure, site, positioning. Patient was evaluated and required intubation for hypoxemic respiratory failure. Sedative agent used: None Paralysis agent used: None Emergent consent was implied given patients rapidly declining clinical status and need for airway protection. Number of attempts: 1 The patient was prepared in the appropriate fashion. The patient was easily ventilated using [id number] to achieve adequate oxygenation. A seven-point Italian endotracheal tube was placed under video laryngoscope guidance to 24 cm at the lip. The stylette was removed and balloon was inflated with 10mL of air. Appropriate Colorimetric change was appreciated. Bilateral breath sounds were heard without air sounds in the abdomen. Post Intubation Chest X-ray ordered Patient tolerated the procedure well and there were no immediate complications. Coding CPT Codes Resuscitation - Resuscitation: 40681 Endotracheal Intubation, emergency ([id number]) [facility] [place] Procedure Codes (Charges) Resuscitation Resuscitation: 18338 Endotracheal Intubation, emergency
[2022-07-31] MEDS ORDERED: STAT IV STA (09:41)
[2022-07-31] MEDS ORDERED: PIPERACILLIN/TAZOBACTAM 4.5 GM in DEXTROSE 5% 100 ML IV STA (09:59)
--- NOTE | 2022-07-31 10:07 | CT Scan Report ---
CT head/brain wo con CLINICAL HISTORY: acute hypoxia, AMS Technique: Contiguous axial CT images of the head were acquired from the base of the skull to the elijah stephanie without intravenous contrast administration. Images were viewed in brain, subdural and bone [facility]. Automated dose lowering techniques and/or adjustment according to patient size were utilized for this exam. Comparison: Comparison is made to CT head 04/13/2022 Findings: Areas of decreased attenuation are present in the periventricular and subcortical white matter bilate rally consistent with small vessel ischemic disease. Generalized cerebral atrophy with commensurate e nlargement of the ventricles, sulci, and cisterns is also present. There is no acute intracranial hem orrhage or evidence of acute territorial infarction. No shift of the midline structures, mass effect, or extra-axial abnormalities are shown. Atherosclerotic calcifications are present in the intracran ial segments of the internal carotid arteries. Focal encephalomalacia is again seen in the right ext ernal capsule compatible with old infarct. Left external capsule hypodensity is unchanged. Imaged portions of the paranasal sinuses and mastoid air cells are clear. The orbits appear normal. There are no acute fractures of the calvaria or scalp swelling. Impression: No acute intracranial hemorrhage, no evidence of acute territorial infarction or other acute intracra nial disease process. ACT 112: Negative or not required by law. Electronically signed by: Abner Shah M.D. 07/31/2022 10:06 AM
[2022-07-31] MEDS: PANTOprazole 40 MG in SYRINGE 0 ML IV SCH ×2 (10:09→20:56)
--- NOTE | 2022-07-31 10:09 | CT Scan Report ---
CT SCAN OF THE CERVICAL SPINE CLINICAL HISTORY: Fall. COMPARISON STUDY: CT of the cervical spine dated 04/09/2019. TECHNIQUE: CT scan of the cervical spine is performed from the skull base to the upper thoracic spine . Images are reviewed in the axial, sagittal, and coronal planes. IV contrast was not administered fo r this examination. A dose lowering technique was utilized adhering to the principles of ALARA. CT DOSE: 535.66 mGycm FINDINGS: Skeletal structures: The skeletal structures are osteopenic. There is no evidence of fracture or subl uxation involving the cervical spine. Vertebral body height and alignment are maintained. There is s traightening of the cervical lordosis. Anterior osteophytes are seen throughout. The odontoid process and lateral masses are intact. The atlantoaxial articulation is preserved noting advanced productive degenerative change. The spinous processes appear intact. There is moderate to advanced multilevel c ervical spondylosis. Uncovertebral and facet arthropathy contribute to neural foraminal narrowing at most levels. Intervertebral discs: There is moderate disc space narrowing at C6-C7. Mild narrowing is seen at the remaining cervical levels. Central canal: Posterior disc osteophyte complexes at C3-C4 and C6-C7 likely contribute to acquired c ompromise of the central canal. Soft tissues: The prevertebral and paraspinous soft tissues are within normal limits. There is advanc ed atherosclerotic calcification of the carotid bulbs. There is a left internal jugular central venou s catheter. Calvarium: The visualized calvarium at the skull base appears intact. Brain parenchyma: Partially visualized brain parenchyma at the skull base is within normal limits not ing age-related involutional change. Sinuses and mastoids: The visualized paranasal sinuses are clear. The mastoid air cells are well pneu matized. Lung apices: Endotracheal and enteric tubes are in place. Apical lung parenchyma is clear as visualiz ed. IMPRESSION: 1. There is no evidence of fracture or subluxation involving the cervical spine. 2. Osteopenia and spondylotic change as above. ACT 112: Negative or not required by law. Electronically signed by: Saleem Doll M.D. 07/31/2022 10:08 AM
--- NOTE | 2022-07-31 10:12 | CT Scan Report ---
CT chest diagnostic wo con CLINICAL HISTORY: hypoxia TECHNIQUE: Multidetector row helical CT of the chest was performed. Coronal and sagittal reformations were obtained. Automated dose lowering techniques and/or adjustment according to patient size were u tilized for this exam. CT DOSE: 582.33 mGycm Comparison: Comparison is made to CT chest 07/29/2022 FINDINGS: Lungs and pleura: There is atelectasis in the left lung with collapse of left lower lobe, new from pr ior exam. Mild atelectasis is in the right lower lobe as well. Endotracheal tube terminates approxima tely 6 cm above the thor. Heart and pericardium: Cardiomegaly is seen with biatrial enlargement. Vessels: The pulmonary trunk is enlarged measuring 40 mm. Moderate atherosclerotic disease is seen. S table ectasia of the ascending aorta measuring up to 40 mm. Mediastinum and enedelia: Subcentimeter lymph nodes are seen. Chest wall and lower neck: Unremarkable. Abdomen: Enteric tube terminates within the stomach. Bones: Right-sided rib fractures are again seen. Old healed rib fractures are noted alongside degener ative changes. IMPRESSION: 1. There is interval atelectasis of the left greater than right lower lung with collapse of the left lower lobe. Superimposed pneumonia/aspiration cannot be entirely excluded. 2. Redemonstration of rib fractures. 3. Pulmonary hypertension. ACT 112: Negative or not required by law. Electronically signed by: Abner Shah M.D. 07/31/2022 10:11 AM
[2022-07-31] MEDS: CISATRACURIUM BESYLATE 40 MG in DEXTROSE 5% 80 ML IV SCH ×2 (10:14→18:12)
--- NOTE | 2022-07-31 10:26 | CT Scan Report ---
CT SCAN OF THE ABDOMEN AND PELVIS WITHOUT IV CONTRAST; CT SCAN OF THE RIGHT HIP WITHOUT IV CONTRAST CLINICAL HISTORY: Fall. Hypoxia. Change in mental status. Right hip pain. COMPARISON STUDY: Abdominal CT dated 04/13/2022. Radiographs of the right hip dated 07/29/2022. TECHNIQUE: CT scan of the abdomen and pelvis is performed from the lung bases to the proximal femora. Additionally, CT scan of the right hip is performed from the bony pelvis to the femoral shaft. Image s for both examination are reviewed in the axial, sagittal, and coronal planes. IV contrast was not a dministered for this examination as per the referring clinician. Note that the examinations were perf ormed and significantly suboptimal fashion without oral and IV contrast. The examination is compromis ed by motion artifact, as well as by streak artifact from the arms which could not be elevated above the abdomen or pelvis. A dose lowering technique was utilized adhering to the principles of ALARA. CT DOSE: 1389.54 mGycm FINDINGS: Lung bases: The heart is top normal in size and without pericardial effusion. The coronary arteries a re densely calcified. There is diminished attenuation of the cardiac blood pool as compared to the my ocardium suggesting anemia. There is dense left lower lobe consolidation. Segmental atelectasis is se en at the right lung base. Trace pleural effusion is seen on the left. Liver: The unenhanced liver is normal in size, contour, and attenuation. There is no intrahepatic katelynn iary ductal dilatation. Gallbladder: Unremarkable. Spleen: Normal in size and attenuation. Pancreas: There is near complete fatty atrophy of the pancreas. Adrenal glands: Unremarkable. Kidneys: The unenhanced kidneys demonstrate cortical atrophy and are without hydronephrosis. There ar e no renal calculi identified. There is no evidence of contour deforming renal mass lesion. Abdominal vasculature: The abdominal aorta is normal in course and caliber noting advanced atheroscle rotic calcification. Stomach and bowel: The enteric tube is in place and terminates in the gastric fundus. There is mild t o moderate colonic fecal retention. No bowel obstruction is seen. The appendix is normal as visualiz ed. Peritoneum: There is trace free fluid in the pelvis. No intraperitoneal free air is seen. Lymphadenopathy: None. Pelvic viscera: The bladder is decompressed around a Peña catheter and grossly unremarkable. The pro state gland is diminutive and heterogeneous. The seminal vesicles are normal as imaged. Skeletal structures: The skeletal structures are osteopenic. The bony pelvis and left proximal femur are intact. See below for discussion of the right hip. There are acute to subacute appearing right an terior fourth through seventh rib fractures. Additional bilateral rib fractures are likely chronic. T here is a mild chronic compression deformity of L1. Moderate lumbosacral spondylosis is observed. No lytic or blastic lesions are seen. RIGHT HIP: There is a comminuted and displaced intertrochanteric/subtrochanteric fracture of the righ t proximal femur with numerous distracted fragments and surrounding hemorrhage. The larger fragments are offset by 1.5 cm. The visualized right hemipelvis appears intact. There is a small amount of intr amuscular hemorrhage within the right gluteal, adductor, and proximal thigh musculature. Soft tissue edema overlies the right hip. IMPRESSION: 1. Significantly suboptimal examination without oral and IV contrast. The examinations are also compr omised by streak and motion artifact. 2. There is dense left lower lobe airspace consolidation. Correlate clinically for evidence of pneumo juliana/aspiration pneumonitis. 3. There is no evidence of solid organ injury in the abdomen or pelvis on this unenhanced examination . 4. There are acute to subacute appearing right anterior rib fractures. Correlate for point tenderness . 5. Trace nonspecific free fluid is seen in the pelvis. 6. There is a comminuted and displaced intertrochanteric/subtrochanteric fracture of the right proxim al femur with surrounding hemorrhage and numerous distracted fragments. 7. There is a small amount of intramuscular hemorrhage within the right gluteal, adductor, and proxim al thigh musculature. 8. Additional findings above. ACT 112: Negative or not required by law. Electronically signed by: Saleem Doll M.D. 07/31/2022 10:24 AM
--- NOTE | 2022-07-31 10:34 | Procedure Note ---
Procedure Note Date of Service July 31, 2022 Note Left INTERNAL JUGULAR CENTRAL LINE PROCEDURE NOTE: Procedure: Internal Jugular Central Line Placement Indication: Central Drug Administration, Poor Venous Access, Multiple Lab Draws Necessary, etc. Anesthesia: 1 mg of Versed and 25 mg of fentanyl Consent was signed and placed on the chart prior to procedure. Indication, risks, and benefits were explained at length. A time-out was completed verifying correct patient, procedure, site, positioning, and implants(s) or special equipment if applicable. Patients left neck was cleansed and draped in the typical sterile fashion using Chloraprep. The Internal Jugular Vein and Carotid Artery were identified using ultrasound. The superficial tissue was anesthetized using 5 mL of 1% lidocaine without epinephrine under direct visualization with the ultrasound. After adequate anesthetization was achieved, the Internal Jugular vein was cannulated under direct ultrasound guidance using an introducer needle on a syringe. Good venous blood return was maintained prior to removal of syringe from introducer needle. Using Seldinger Technique, a guide wire was advanced through the introducer needle without resistance. The introducer needle was removed and ultrasound images were obtained of the guide wire within the Internal Jugular Vein and saved to the patients medical record. A small incision was made in penetrating fashion at the guide wire insertion site utilizing an 11 blade scalpel. The dilator was advanced to the vessel without resistance. The dilator was exchanged for the triple lumen catheter which was advanced into the vessel without resistance. The guide wire was removed intact from the catheter without issue. Claves were placed on each catheter tip with confirmation of good blood flow from each lumen. Each port was easily flushed with sterile saline. The catheter was placed at 16 cm and sutured in place. BioPatch was applied to the catheter and a sterile Tegaderm dressing was applied over the catheter with careful attention to sterility. Patient tolerated procedure well. No immediate complications were met. Post procedure x-ray was completed, placement was appropriate and no pneumothorax was noted. Procedural Ultrasound Guidance used Coding CPT Codes Tubes, Drains, and Vasc Access - Tubes, Drains, and Vasc Access: [id number] Place catheter in vein superior or inferior vena cava ([id number]) Tubes, Drains, and Vasc Access - Tubes, Drains, and Vasc Access: [id number] Ultrasound Guidance For Vascular ([id number]) [facility] [place] Procedure Codes (Charges) Tubes, Drains, and Vasc Access Procedure 1: Tubes, Drains, and Vasc Access: [id number] Place catheter in vein superior or inferior vena cava Procedure 2: Tubes, Drains, and Vasc Access: [id number] Ultrasound Guidance For Vascular
[2022-07-31] MEDS: ARTIFICIAL TEARS OP OINT 3.5 GM TUBE OP SCH ×4 (10:35→20:34)
[2022-07-31 10:39] LABS: Basophils # (auto) 0.04 K/uL (0-0.2); Basophils % (auto) 0.5 %; Eosinophils # (auto) 0.02 K/uL (0-0.50); Eosinophils % (auto) 0.2 %; Hematocrit (blood only) 23.8 % (42.0-52.0); Hemoglobin 8.3 g/dl (14.0-18.0); Immature Granulocytes # (auto) 0.03 K/uL (0.01-0.20); Immature Granulocytes % (auto) 0.3 %; Lymphocytes # (auto) 0.62 K/uL (1.2-3.4); Mean Corpuscular Hemoglobin 32.3 pg (25.0-34.0); Mean Corpuscular Hgb Conc 34.9 g/dL (32.0-36.0); Mean Corpuscular Volume 92.6 fL (80.0-100.0); Mean Platelet Volume 9.6 fL (9.4-12.4); Monocytes # (auto) 0.69 K/uL (0.11-0.59); Monocytes % (auto) 7.8 %; Neutrophils # (auto) 7.43 K/uL (1.40-6.50); Neutrophils % (auto) 84.2 %; Platelet Count 143 K/uL (130-400); RDW Coefficient of Variation 13.1 % (11.5-14.5); RDW Standard Deviation 43.8 fL (36.4-46.3); Red Blood Count 2.57 M/uL (4.70-6.10); White Blood Count 8.83 K/ul (4.8-10.8)
[2022-07-31] MEDS: MAGNESIUM SULFATE / D5W 1 GM/100 ML BAG IV SCH ×2 (11:40→13:28)
--- NOTE | 2022-07-31 12:21 | Critical Care Consultation ---
Date of Consultation July 31, 2022 Assessment & Plan (1) Acute hypoxemic respiratory failure: (2) Septic shock: (3) ARDS (adult respiratory distress syndrome): (4) Aspiration pneumonia: (5) Acute hemorrhage: (6) Refusal of blood transfusions as patient is Voodoo: Plan 82-year-old male who presented to the hospital as a trauma now found to have acute hemorrhage, aspiration pneumonia, hypoxemic respiratory failure and septic shock I had a lengthy discussion with the patient's family. The indicates that he would not want heroic measures such as chest compressions or ACLS in the event of a cardiac arrest. We will continue with supportive care including b road-spectrum antibiotics. Obtain cultures and lactic acid. Continue with crystalloid infusion given IVETT. Continue with ARDSnet protocol. We will attempt low PEEP strategy given rib fractures and hypotension. Continue with neuromuscular blockade. Continue sedation with Versed and analgesia with fentanyl. Maintain maps above 65 mmHg with Levophed. Left IJ placed today. CT head and spine without evidence of acute findings. Hemorrhage noted around the femoral fracture site. We will continue to trend CBC. Patient is Voodoo and refuses blood products. Discussed extensively with family. We will hold on fixation of the hip and femur at this time given his severe illness. Additional vitamin K given due to elevated INR from warfarin therapy. We will proceed with diagnostic and therapeutic bronchoscopy to evaluate for mucous plugging and send washings for cultures. Consent obtained from the . She understands the risks and benefits and is willing to proceed. Overall prognosis is poor. We will continue to monitor closely in the ICU. CRITICAL CARE TIME - I have personally spent 48 minutes of critical care time in the direct management of this patient. This is a life/limb threatening event. This includes time spent evaluating patient, direct bedside care, chart review, placing orders, interpretation of diagnostic studies, discussion with consultants, patient, and family members, as well as other required patient management activities. This time is exclusive of all separately billable procedures, and teaching time and separate from and in addition to any other critical care service time. History of Present Illness Reason for Consultation: Respiratory arrest Attending Physician: Fracisco Pizarro MD History of Present Illness 82-year-old male who presented to the hospital on the sixth for a fall and was found to have a femur fracture. He was supposed to undergo fixation today. When evaluated in the the morning by the nurse, the patient was found to be in r espiratory distress and obtunded. Code katarzyna was called. I came up and evaluated the patient. He was unresponsive to commands. He had saturations at 1 point in the 60s and 70s. His systolic blood pressure was in the 50s initially but improved into the 90s. He was emergently intubated by me. There was evidence of mucopurulent secretions around the epiglottis and vocal cords. The patient was brought down to the ICU and started on neuromuscular blockade, Versed and fentanyl. He also underwent CT head, chest, C-spine, hip and abdomen. CT chest revealed bibasilar densities with left greater than right infiltrates. There was a small amount of intramuscular hemorrhage within the right gluteal, adductor and proximal thigh musculature. There was also a small amount of hemorrhage around the right proximal femur. Patient's hemoglobin was also noted to be decreased to 8.3 compared to yesterday. I had a lengthy discussion with the patient's extended family and in the ICU waiting area. They note that he is a Voodoo and would refuse all blood products. They note that he would "not want to live on machines". His noted that she was aware of his rib fractures and notes that he would not want CPR in the event of a cardiac arrest. Labs significant otherwise for mild hyperkalemia and IVETT. Mild transaminitis noted as well. Allergies Allergy/AdvReac Type Severity Reaction Status Date / Time meperidine AdvReac Intermediate OVER-SEDATION, Verified 07/29/22 19:58 N/V W/ SYNCOPE sertraline [From Zoloft] AdvReac Intermediate Dizziness Verified 07/29/22 19:58 Home Medications Medication Instructions Recorded Confirmed Type latanoprost 0.005 % eye drops 1 drp OPB HS 06/28/18 07/29/22 History mecobalamin (vitamin B12) 1,000 1,000 mcg PO QAM 03/21/20 07/29/22 History mcg chewable tablet leuprolide acetate (6 month) 45 mg 45 mg IM Q24W #1 ea 04/25/20 07/29/22 Rx intramuscular syringe kit (Lupron Depot) warfarin 3 mg tablet 4.5 mg PO WK 06/18/21 07/29/22 History blood sugar diagnostic #100 ea 02/25/22 06/28/22 Rx carvedilol 6.25 mg tablet 6.25 mg PO BID #180 tabs 03/01/22 07/29/22 Rx amiodarone 200 mg tablet 200 mg PO QAM #90 tabs 03/18/22 07/29/22 Rx metformin 500 mg tablet 500 mg PO BID #180 tabs 04/08/22 07/29/22 Rx amlodipine 2.5 mg tablet 2.5 mg PO DAILY #90 tabs 06/28/22 07/29/22 Rx atorvastatin 40 mg tablet 40 mg PO HS #90 tabs 07/17/22 07/29/22 Rx lisinopril 10 mg tablet 10 mg PO QAM 07/29/22 07/29/22 History polyethylene glycol 3350 17 gram 17 g PO BID PRN Constipation 07/29/22 07/29/22 History oral powder packet (Miralax) warfarin 3 mg tablet 3 mg PO [id number] 07/29/22 07/29/22 History Patient History Medical History (Updated 07/31/22 @ 12:16 by Timothy Acuña MD) Acute hemorrhage Acute hypoxemic respiratory failure Acute spont intraparenchymal hemorrhage assoc w/ hypertension Antithrombin III deficiency FOLLOWS PCP > DR. TAN/LOC - ON COUMADIN ARDS (adult respiratory distress syndrome) Aspiration pneumonia Blurred vision, bilateral Cataract RT/LEFT Chest pain Constipation Diabetes mellitus type 2 in obese Dizziness Forgetfulness "RELATED TO AGE" Glaucoma LEFT EYE History of adenomatous polyp of colon History of atrial fibrillation History of hemorrhagic stroke with residual hemiparesis History of prostate cancer History of skin cancer MELANOMA AND BASAL CELL Hx of deep venous thrombosis SEVERAL YEARS AGO, REASON FOR COUMADIN Hx pulmonary embolism WITH DVT ? YEAR "A FEW YEARS AGO" Hyperlipidemia Hypertension Hypertensive heart disease preserved LV function Hypertensive urgency Obstructive sleep apnea no device used (could not tolerate) Osteoarthritis Prostate cancer Refusal of blood transfusions as patient is Voodoo Septic shock Thoracic ascending aortic aneurysm UNSURE ABOUT DX Surgical History History of cardioversion (11/2018) X 4--last 06/22/21 @ [facility] History of colonoscopy History of local excision of skin lesion MULTIPLE REMOVAL History of nasal septoplasty multiple-with Celon turbinate reduction History of tooth extraction Hx of colonoscopy Hx of prostate biopsy Family History Mother Venous embolism and thrombosis of deep vessels of lower extremity Cancer Father Stroke syndrome Other No family history of adverse response to anesthesia No family history of bleeding disorder No pertinent family history Denies family history of Ovarian cancer Prostate cancer Coronary heart disease Alzheimer disease Bipolar disorder Breast cancer COPD (chronic obstructive pulmonary disease) Colorectal cancer Asthma Social History Smoking Status: Never smoker Second Hand Exposure: Yes; Do You Dip or Chew Tobacco: No; Hx Alcohol Use: No Hx Substance Use: No Preferred Language: Congolese Communication Ability: Effective Visual Impairment: No Limitations Hearing Ability: Normal Owner Spa Director Required: No Beliefs That Will Affect Care: Catholic Catholic Beliefs: Pt is Jehova's witness will not use blood products marital status: Current Living Situation: Spouse current occupational status: retired current occupation: Worked at [employer] How many Children do You have: 2 Other Information That Helps Us Care for You: No Feels Safe at Home: Yes Safety Concerns: Feels Safe At This Time Childhood Exposure to Second-Hand Smoke: No caffeine: No during the past year weight has: remained stable Dental Care, Regularly: Yes Physical Activity Frequency: Does not Exercise Seatbelt Use: always Sunscreen Use: No Assistive Devices: Cane and Walker Review of Systems Review of Systems: Unobtainable due to endotracheal tube Physical Exam Physical Exam: Constitutional: Patient is obtunded. Undergoing BVM. Eyes: Pupils are equal round and reactive to light. Conjunctivae are normal. Anicteric sclera. Ears nose, mouth and throat: Mallampati class 2. Normal posterior oropharynx. Uvula is midline. Neck: Trachea is midline. Visual inspection is normal. Respiratory: Coarse rhonchi bilaterally and severely diminished on the left Cardiovascular: Regular rate and rhythm. No murmurs. No edema. Gastrointestinal: Normal bowel sounds, soft, nontender and nondistended. No hepatosplenomegaly noted. Musculoskeletal: No cyanosis. Patient is able to move all extremities. Strength is 5 out of 5 in the upper and lower extremities. Skin: No rashes, warm dry and intact. Neurologic: Able to squeeze my hands bilaterally. No obvious focal deficits. Pupils equal and round. Psychiatric: Obtunded upon initial evaluation. Results & Data Results & Data ([facility]) Vital Signs (Past 12 Hours) Vital Signs Pulse Pulse Resp Pulse Ox O2 Del Method FiO2 07/31/22 08:00 95 H 86 L BiPAP 100 07/31/22 08:36 97 H 20 94 100 Coding Level of Care Code 21481 CRITICAL CARE 1ST 30-74M Diagnoses Acute hypoxemic respiratory failure J96.01 Septic shock A41.9; R65.21 ARDS (adult respiratory distress syndrome) J80 Aspiration pneumonia J69.0 Acute hemorrhage R58 Refusal of blood transfusions as patient is Voodoo Z53.1 Time Spent (min) 48
--- NOTE | 2022-07-31 12:50 | Procedure Note ---
Supervising Physician Co-Signing Physician Notes Performed for airway clearance and evaluation for infectious etiology. Informed consent obtained from the patient's . Risks and benefits discussed. Timeout performed directly prior to the procedure. Patient was preoxygenated with 100% oxygen via the ventilator. Continuous sedation was running with Versed, fentanyl and Nimbex. Adapter placed on the ET tube. Bronchoscope was inserted via the endotracheal tube. ET tube was appropriately placed above the thor. Thor appeared sharp. Bilateral tracheobronchial tree inspection was performed. There were thick mucopurulent secretions noted bilaterally which were suctioned free. Washings were performed of the left lower lobe and thick white secretions were aspirated and sent for culture. No significant bleeding was encountered. Oxygenation remained adequate throughout the entirety of the procedure. Scope was completely withdrawn. Patient tolerated the procedure well. [facility] [place] Procedure Codes (Charges) Pulmonary/Thoracic Procedure 1: Pulmonary and Thoracic: 51985 Dx bronchoscopy/wash
--- NOTE | 2022-07-31 15:02 | Hospitalist Progress Note ---
Date of Service July 31, 2022 Assessment & Plan (1) Closed intertrochanteric fracture of femur: Plan: Acute fracture after falling at home from ground level -- RIGHT (of note, patient hindu, /patient wishes to AVOID blood products if needed) Ortho consulted and was planning for surgery this morning INR 2.8 on 07/30 and Vit K 2.5mg PO x 1 was given and INR 1.6 on AM labs Patient found to be obtunded/off oxygen overnight w/ SpO2 51% this morning req uiring BVM and transfer to ICU for further management/airway protection. ?aspiration overnight, no witnesses for last time known well Does appear patient's BPs dropped/hypotensive, had transaminitis ?ATN from hypotension. Na 132 on AM labs, K 5.3 w/ Cr up to 2.2 (?ATN from hypotension/blood loss from femur fx given hgb 13.2--> 8.6, 8.3) Had been therapeutic on coumadin until yesterday w/ Vitamin K and INR 1.6 today Surgery postponed for now Further management per ICU staff -- Now w/ left IJ s/p Bronch w/ thick mucopurulent secretions bilaterally, washings performed of LLL and thicken white secretions aspirated and sent for culture Placed on Zosyn IV monitor cultures CT hip w/ comminuted and displaced intertrochanteric/subtrochanteric fracture of the right proximal femur with surrounding hemorrhage and numerous distracted fragments. There is a small amount of intramuscular hemorrhage within the right gluteal, adductor, and proximal thigh musculature. Further management per ICU, appreciate assistance/management for Mr Jones's care (2) Multiple fractures of rib involving four or more ribs: Plan: Acute, RIGHT ribs 3-7 Progressive O2 requirement/hypoxia, now intubated Appears possible aspiration at some point overnight into this morning given bronch findings pulmonary toilet once off vent/monitor closely (3) Transaminitis: Plan: Acute - S/p fall, acute hip fracture, and acute rib fracture - Patient has mild elevation of AST/ALT - Suspect d/t acute stress/injury, possibly bleeding and shock as above Monitor on repeat (4) Diabetes mellitus type 2 in obese: Plan: Last a1c 6.1 Holding home metformin and on SSI while inpatient No hypoglycemia noted (5) 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, supratherapeutic INR of 3.4 --> 2.8 and vitamin K 2.5mg yesterday w/ INR 1.6 on AM labs Anticoagulation per ICU staff for today given procedures/bleeding risk/upcoming surgery and hx brain bleed also of note, patient jehovah witness (6) SDAT (senile dementia of Alzheimer's type): Plan: Per last primary care note from 06/28/22, he was to be on Memantine 5mg BID which is not on his med rec, ordered to start evening 07/30 (7) Paroxysmal atrial fibrillation: Plan: Hx paroxysmal afib On coumadin (see above), amiodarone, coreg 6.25mg BID (on hold for surgery/hypotension) (8) Hypertension: Plan: Typically on lisinopril, coreg, amlodipine which were continued on admission BP meds placed on hold last evening due to soft pressures Hold antihtn this morning, further management per ICU in transfer Plan transferred to ICU for intubation Admission and Anticipated Discharge Date Admission Date: July 29, 2022 Supervising Physician Co-Signing Physician Notes The patient was seen during code rosas situation earlier this morning. The chart was reviewed. He is now intubated. Case discussed with ISABELLA Duarte. Agree with assessment and plan Subjective code purple this morning found w/o oxygen in place and SpO2 in the 50s, BVM BSGs in 120s, had not received any opiates/insulin or other medication prior to event. Call to ICU for intubation to protect airway. On coumadin for hx afib, had been on hold and patient was given Vitamin K last evening in anticipation for upcoming surgery. Orders for stat CXR/VBG/labs and transfer to ICU for ongoing management. Surgery for hip fx deferred at this time given change in clinical picture. Family updated by nursing. Physical Exam Physical Exam: General: elderly male obtunded being bagged w/ BVM, unresponsive pulses palpable, nonresponsive to verbal/tactile stimuli. No posturing/rigidity. pupils equal/reactive Resp: SpO2 77% to 90s w/ minimal increase in responsiveness , diminished in the bases, coarse ronchi CV: RRR, distant, +murmur, no pitting edema GI: +BS, soft/nondistended MSK/Neuro: R hip edema/swelling Psych: not alert/oriented Results & Data Results & Data ([facility]) Vital Signs (Past 12 Hours) Vital Signs Temp Pulse Pulse Resp BP BP Pulse Ox 07/31/22 12:40 07/31/22 11:04 16 07/31/22 13:44 07/31/22 13:00 36.8 C 07/31/22 08:15 37.1 C 07/31/22 13:00 77 16 83/45 L 98 07/31/22 12:43 117/59 L 07/31/22 12:40 140/67 07/31/22 12:38 128/68 07/31/22 12:35 79 14 118/60 97 07/31/22 12:00 77 16 110/60 96 07/31/22 11:00 82 20 117/61 91 07/31/22 10:00 94 H 20 117/61 95 07/31/22 09:00 94 H 20 101/53 L 91 07/31/22 08:28 124/60 07/31/22 08:20 96 H 20 90/44 L 96 07/31/22 07:35 90 122/50 L 53 L 07/31/22 08:15 07/31/22 08:00 95 H 86 L 07/31/22 08:36 97 H 20 94 O2 Del Method O2 Flow Rate FiO2 07/31/22 12:40 Mechanical Vent 07/31/22 11:04 80 07/31/22 13:44 Mechanical Vent 60 07/31/22 13:00 07/31/22 08:15 07/31/22 13:00 80 07/31/22 12:43 07/31/22 12:40 07/31/22 12:38 07/31/22 12:35 07/31/22 12:00 07/31/22 11:00 07/31/22 10:00 07/31/22 09:00 07/31/22 08:28 07/31/22 08:20 Mechanical Vent 100 07/31/22 07:35 Nasal Cannula 2 07/31/22 08:15 Mechanical Vent 100 07/31/22 08:00 BiPAP 100 07/31/22 08:36 100 Laboratory Results 07/31/22 07/31/22 07/31/22 Range/Units 10:24 10:24 08:25 WBC 8.83 (4.8-10.8) K/ul RBC 2.57 L (4.70-6.10) M/uL Hgb 8.3 L (14.0-18.0) g/dl POC Hgb (14.0-18.0) g/dl Hct 23.8 L (42.0-52.0) % POC Hct (42-52) % MCV 92.6 (80.0-100.0) fL MCH 32.3 (25.0-34.0) pg MCHC 34.9 (32.0-36.0) g/dL RDW Std Deviation 43.8 (36.4-46.3) fL RDW Coeff of Mickey 13.1 (11.5-14.5) % Plt Count 143 (130-400) K/uL MPV 9.6 (9.4-12.4) fL Immature Gran % (Auto) 0.3 % Neut % (Auto) 84.2 % Lymph % (Auto) 7.0 % Kaufman % (Auto) 7.8 % Eos % (Auto) 0.2 % Baso % (Auto) 0.5 % Neut # (Auto) 7.43 H (1.40-6.50) K/uL Lymph # (Auto) 0.62 L (1.2-3.4) K/uL Kaufman # (Auto) 0.69 H (0.11-0.59) K/uL Eos # (Auto) 0.02 (0-0.50) K/uL Baso # (Auto) 0.04 (0-0.2) K/uL Immature Gran # (Auto) 0.03 (0.01-0.20) K/uL PT (9.0-12.0) Seconds INR (0.9-1.1) Sample Site POC pH (7.35-7.45) POC pCO2 (35-46) mmHg POC pO2 (80-95) mmHg POC HCO3 (19-24) carlota/L POC Total CO2 (24-31) mmol/L POC Base Excess (-9-1.8) carlota/L ABG pH (Temp Correct) (7.35-7.45) ABG pCO2 (Temp Corrct (35-46) mmHg POC ABG pO2 at Pt Temp POC ABG O2 Sat (90-95) % Kalia Test VBG pH (7.36-7.41) VBG pCO2 (38-50) mmHg VBG pO2 mmHg VBG HCO3 mmol/L VBG O2 Saturation % VBG Base Excess mEq/L O2 Delivery Device POC O2 Rate POC FiO2 % Tidal Volume PEEP POC Sodium (135-144) mmol/L Sodium (136-145) mmol/L POC Potassium (3.3-5.0) mmol/L Potassium (3.5-5.1) mmol/L Chloride (98-107) mmol/L Carbon Dioxide (21-32) mmol/L Anion Gap (3-11) BUN (6-23) mg/dl Creatinine (0.6-1.4) mg/dl Est Cr Clr Drug Dosing ml/min Est GFR ( Amer) ml/min Est GFR (Non-Af Amer) ml/min BUN/Creatinine Ratio (10-20) Glucose (70-99(Fasting)) mg/dl POC Glucose (70-99) mg/dl Lactate 1.0 (0.4-2.0) mmol/L Calcium (8.5-10.1) mg/dl Magnesium (1.7-2.4) mg/dl Total Bilirubin (0.2-1.0) mg/dl AST (13-39) U/L ALT (7-52) U/L Alkaline Phosphatase (34-104) U/L Total Protein (6.0-8.3) gm/dl Albumin (3.4-5.0) gm/dl Globulin (2.5-4.0) gm/dl Albumin/Globulin Ratio (0.9-2) Nasal Screen MRSA (PCR) Negative (Negative) 07/31/22 07/31/22 07/31/22 Range/Units 08:06 07:39 07:38 WBC (4.8-10.8) K/ul RBC (4.70-6.10) M/uL Hgb (14.0-18.0) g/dl POC Hgb 7.5 L (14.0-18.0) g/dl Hct (42.0-52.0) % POC Hct 22 L (42-52) % MCV (80.0-100.0) fL MCH (25.0-34.0) pg MCHC (32.0-36.0) g/dL RDW Std Deviation (36.4-46.3) fL RDW Coeff of Mickey (11.5-14.5) % Plt Count (130-400) K/uL MPV (9.4-12.4) fL Immature Gran % (Auto) % Neut % (Auto) % Lymph % (Auto) % Kaufman % (Auto) % Eos % (Auto) % Baso % (Auto) % Neut # (Auto) (1.40-6.50) K/uL Lymph # (Auto) (1.2-3.4) K/uL Kaufman # (Auto) (0.11-0.59) K/uL Eos # (Auto) (0-0.50) K/uL Baso # (Auto) (0-0.2) K/uL Immature Gran # (Auto) (0.01-0.20) K/uL PT (9.0-12.0) Seconds INR (0.9-1.1) Sample Site L Radial POC pH 7.50 H (7.35-7.45) POC pCO2 28 L (35-46) mmHg POC pO2 45 L (80-95) mmHg POC HCO3 22 (19-24) carlota/L POC Total CO2 23 L (24-31) mmol/L POC Base Excess -1.0 (-9-1.8) carlota/L ABG pH (Temp Correct) 7.492 H (7.35-7.45) ABG pCO2 (Temp Corrct 29 L (35-46) mmHg POC ABG pO2 at Pt Temp 47 POC ABG O2 Sat 86.0 L (90-95) % Kalia Test Pass VBG pH 7.41 (7.36-7.41) VBG pCO2 40 (38-50) mmHg VBG pO2 28 mmHg VBG HCO3 25 mmol/L VBG O2 Saturation < 60.0 % VBG Base Excess 0.7 mEq/L O2 Delivery Device Ventilator POC O2 Rate 20 POC FiO2 100 % Tidal Volume 450 PEEP 10 POC Sodium 129 L (135-144) mmol/L Sodium (136-145) mmol/L POC Potassium 5.0 (3.3-5.0) mmol/L Potassium (3.5-5.1) mmol/L Chloride (98-107) mmol/L Carbon Dioxide (21-32) mmol/L Anion Gap (3-11) BUN (6-23) mg/dl Creatinine (0.6-1.4) mg/dl Est Cr Clr Drug Dosing ml/min Est GFR ( Amer) ml/min Est GFR (Non-Af Amer) ml/min BUN/Creatinine Ratio (10-20) Glucose (70-99(Fasting)) mg/dl POC Glucose 137 H (70-99) mg/dl Lactate (0.4-2.0) mmol/L Calcium (8.5-10.1) mg/dl Magnesium (1.7-2.4) mg/dl Total Bilirubin (0.2-1.0) mg/dl AST (13-39) U/L ALT (7-52) U/L Alkaline Phosphatase (34-104) U/L Total Protein (6.0-8.3) gm/dl Albumin (3.4-5.0) gm/dl Globulin (2.5-4.0) gm/dl Albumin/Globulin Ratio (0.9-2) Nasal Screen MRSA (PCR) (Negative) 07/31/22 07/31/22 07/31/22 Range/Units 07:38 07:38 07:38 WBC 9.33 (4.8-10.8) K/ul RBC 2.65 L (4.70-6.10) M/uL Hgb 8.6 L D (14.0-18.0) g/dl POC Hgb (14.0-18.0) g/dl Hct 24.9 L (42.0-52.0) % POC Hct (42-52) % MCV 94.0 (80.0-100.0) fL MCH 32.5 (25.0-34.0) pg MCHC 34.5 (32.0-36.0) g/dL RDW Std Deviation 44.4 (36.4-46.3) fL RDW Coeff of Mickey 13.1 (11.5-14.5) % Plt Count 139 (130-400) K/uL MPV 9.5 (9.4-12.4) fL Immature Gran % (Auto) 0.8 % Neut % (Auto) 77.1 % Lymph % (Auto) 11.3 % Kaufman % (Auto) 9.4 % Eos % (Auto) 1.1 % Baso % (Auto) 0.3 % Neut # (Auto) 7.20 H (1.40-6.50) K/uL Lymph # (Auto) 1.05 L (1.2-3.4) K/uL Kaufman # (Auto) 0.88 H (0.11-0.59) K/uL Eos # (Auto) 0.10 (0-0.50) K/uL Baso # (Auto) 0.03 (0-0.2) K/uL Immature Gran # (Auto) 0.07 (0.01-0.20) K/uL PT 16.7 H (9.0-12.0) Seconds INR 1.6 H (0.9-1.1) Sample Site POC pH (7.35-7.45) POC pCO2 (35-46) mmHg POC pO2 (80-95) mmHg POC HCO3 (19-24) carlota/L POC Total CO2 (24-31) mmol/L POC Base Excess (-9-1.8) carlota/L ABG pH (Temp Correct) (7.35-7.45) ABG pCO2 (Temp Corrct (35-46) mmHg POC ABG pO2 at Pt Temp POC ABG O2 Sat (90-95) % Kalia Test VBG pH (7.36-7.41) VBG pCO2 (38-50) mmHg VBG pO2 mmHg VBG HCO3 mmol/L VBG O2 Saturation % VBG Base Excess mEq/L O2 Delivery Device POC O2 Rate POC FiO2 % Tidal Volume PEEP POC Sodium (135-144) mmol/L Sodium 132 L (136-145) mmol/L POC Potassium (3.3-5.0) mmol/L Potassium 5.4 H (3.5-5.1) mmol/L Chloride 102 (98-107) mmol/L Carbon Dioxide 24 (21-32) mmol/L Anion Gap 6 (3-11) BUN 47 H D (6-23) mg/dl Creatinine 2.20 H D (0.6-1.4) mg/dl Est Cr Clr Drug Dosing 27.1 ml/min Est GFR ( Amer) 31.0 ml/min Est GFR (Non-Af Amer) 26.7 ml/min BUN/Creatinine Ratio 21.4 H (10-20) Glucose 136 H (70-99(Fasting)) mg/dl POC Glucose (70-99) mg/dl Lactate (0.4-2.0) mmol/L Calcium 8.1 L (8.5-10.1) mg/dl Magnesium 1.6 L (1.7-2.4) mg/dl Total Bilirubin 1.8 H (0.2-1.0) mg/dl AST 68 H (13-39) U/L ALT 69 H (7-52) U/L Alkaline Phosphatase 90 (34-104) U/L Total Protein 4.7 L D (6.0-8.3) gm/dl Albumin 2.8 L (3.4-5.0) gm/dl Globulin 1.9 L (2.5-4.0) gm/dl Albumin/Globulin Ratio 1.5 (0.9-2) Nasal Screen MRSA (PCR) (Negative) 07/31/22 07/31/22 07/30/22 Range/Units 05:38 00:17 17:12 WBC (4.8-10.8) K/ul RBC (4.70-6.10) M/uL Hgb (14.0-18.0) g/dl POC Hgb (14.0-18.0) g/dl Hct (42.0-52.0) % POC Hct (42-52) % MCV (80.0-100.0) fL MCH (25.0-34.0) pg MCHC (32.0-36.0) g/dL RDW Std Deviation (36.4-46.3) fL RDW Coeff of Mickey (11.5-14.5) % Plt Count (130-400) K/uL MPV (9.4-12.4) fL Immature Gran % (Auto) % Neut % (Auto) % Lymph % (Auto) % Kaufman % (Auto) % Eos % (Auto) % Baso % (Auto) % Neut # (Auto) (1.40-6.50) K/uL Lymph # (Auto) (1.2-3.4) K/uL Kaufman # (Auto) (0.11-0.59) K/uL Eos # (Auto) (0-0.50) K/uL Baso # (Auto) (0-0.2) K/uL Immature Gran # (Auto) (0.01-0.20) K/uL PT (9.0-12.0) Seconds INR (0.9-1.1) Sample Site POC pH (7.35-7.45) POC pCO2 (35-46) mmHg POC pO2 (80-95) mmHg POC HCO3 (19-24) carlota/L POC Total CO2 (24-31) mmol/L POC Base Excess (-9-1.8) carlota/L ABG pH (Temp Correct) (7.35-7.45) ABG pCO2 (Temp Corrct (35-46) mmHg POC ABG pO2 at Pt Temp POC ABG O2 Sat (90-95) % Kalia Test VBG pH (7.36-7.41) VBG pCO2 (38-50) mmHg VBG pO2 mmHg VBG HCO3 mmol/L VBG O2 Saturation % VBG Base Excess mEq/L O2 Delivery Device POC O2 Rate POC FiO2 % Tidal Volume PEEP POC Sodium (135-144) mmol/L Sodium (136-145) mmol/L POC Potassium (3.3-5.0) mmol/L Potassium (3.5-5.1) mmol/L Chloride (98-107) mmol/L Carbon Dioxide (21-32) mmol/L Anion Gap (3-11) BUN (6-23) mg/dl Creatinine (0.6-1.4) mg/dl Est Cr Clr Drug Dosing ml/min Est GFR ( Amer) ml/min Est GFR (Non-Af Amer) ml/min BUN/Creatinine Ratio (10-20) Glucose (70-99(Fasting)) mg/dl POC Glucose 120 H 128 H 112 H (70-99) mg/dl Lactate (0.4-2.0) mmol/L Calcium (8.5-10.1) mg/dl Magnesium (1.7-2.4) mg/dl Total Bilirubin (0.2-1.0) mg/dl AST (13-39) U/L ALT (7-52) U/L Alkaline Phosphatase (34-104) U/L Total Protein (6.0-8.3) gm/dl Albumin (3.4-5.0) gm/dl Globulin (2.5-4.0) gm/dl Albumin/Globulin Ratio (0.9-2) Nasal Screen MRSA (PCR) (Negative) Diagnostic Findings Head CT 07/31/22 07:53 CT head/brain wo con CLINICAL HISTORY: acute hypoxia, AMS Technique: Contiguous axial CT images of the head were acquired from the base of the skull to the vertex without intravenous contrast administration. Images were viewed in brain, subdural and bone windows. Automated dose lowering techniques and/or adjustment according to patient size were utilized for this exam. Comparison: Comparison is made to CT head 04/13/2022 Findings: Areas of decreased attenuation are present in the periventricular and subcortical white matter bilaterally consistent with small vessel ischemic disease. Generalized cerebral atrophy with commensurate enlargement of the ventricles, sulci, and cisterns is also present. There is no acute intracranial hemorrhage or evidence of acute territorial infarction. No shift of the midline structures, mass effect, or extra-axial abnormalities are shown. Atherosclerotic calcifications are present in the intracranial segments of the internal carotid arteries. 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 Left external capsule hypodensity is unchanged. Imaged portions of the paranasal sinuses and mastoid air cells are clear. The orbits appear normal. There are no acute fractures of the calvaria or scalp swelling. Impression: No acute intracranial hemorrhage, no evidence of acute territorial infarction or other acute intracranial disease process. ACT 112: Negative or not required by law. Electronically signed by: Abner Shah M.D. 07/31/2022 10:[address] 07/31/22 07:56 CT SCAN OF THE CERVICAL SPINE CLINICAL HISTORY: Fall. COMPARISON STUDY: CT of the cervical spine dated 04/09/2019. TECHNIQUE: CT scan of the cervical spine is performed from the skull base to the upper thoracic spine. Images are reviewed in the axial, sagittal, and coronal planes. IV contrast was not administered for this examination. A dose lowering technique was utilized adhering to the principles of ALARA. CT DOSE: 535.66 mGycm FINDINGS: Skeletal structures: The skeletal structures are osteopenic. There is no evidence of fracture or subluxation involving the cervical spine. Vertebral body height and alignment are maintained. There is straightening of the cervical lordosis. Anterior osteophytes are seen throughout. The odontoid process and lateral masses are intact. The atlantoaxial articulation is preserved noting advanced productive degenerative change. The spinous processes appear intact. There is moderate to advanced multilevel cervical spondylosis. Uncovertebral and facet arthropathy contribute to neural foraminal narrowing at most levels. Intervertebral discs: There is moderate disc space narrowing at C6-C7. Mild narrowing is seen at the remaining cervical levels. Central canal: Posterior disc osteophyte complexes at C3-C4 and C6-C7 likely contribute to acquired compromise of the central canal. Soft tissues: The prevertebral and paraspinous soft tissues are within normal limits. There is advanced atherosclerotic calcification of the carotid bulbs. There is a left internal jugular central venous catheter. Calvarium: The visualized calvarium at the skull base appears intact. Brain parenchyma: Partially visualized brain parenchyma at the skull base is within normal limits noting age-related involutional change. Sinuses and mastoids: The visualized paranasal sinuses are clear. The mastoid air cells are well pneumatized. Lung apices: Endotracheal and enteric tubes are in place. Apical lung parenchyma is clear as visualized. IMPRESSION: 1. There is no evidence of fracture or subluxation involving the cervical spine. 2. Osteopenia and spondylotic change as above. ACT 112: Negative or not required by law. Electronically signed by: Saleem Doll M.D. 07/31/2022 10:08 AM Chest X-Ray 07/31/22 08:02 XR chest 1V portable CLINICAL HISTORY: s/p intubation TECHNIQUE: Single frontal radiograph of the chest was obtained. Comparison: Comparison is made to chest radiograph 06/17/2021 FINDINGS: Endotracheal tube terminates 43 mm from the thor. Enteric tube side-port and tip lie below the diaphragm. Cardiomegaly is noted. Emphysema is seen. There is left sided airspace opacity and prominence of the vasculature. A left pleural effusion cannot be excluded. IMPRESSION: 1. Satisfactory appearance of lines and tubes. 2. Cardiomegaly and mild pulmonary edema. 3. Left pleural effusion and left airspace opacity which likely represents atelectasis with or without superimposed aspiration/pneumonia. ACT 112: Negative or not required by law. Electronically signed by: Abner Shah M.D. 07/31/2022 8:10 AM Abdomen/Pelvis CT 07/31/22 09:00 CT SCAN OF THE ABDOMEN AND PELVIS WITHOUT IV CONTRAST; CT SCAN OF THE RIGHT HIP WITHOUT IV CONTRAST CLINICAL HISTORY: Fall. Hypoxia. Change in mental status. Right hip pain. COMPARISON STUDY: Abdominal CT dated 04/13/2022. Radiographs of the right hip dated 07/29/2022. TECHNIQUE: CT scan of the abdomen and pelvis is performed from the lung bases to the proximal femora. Additionally, CT scan of the right hip is performed from the bony pelvis to the femoral shaft. Images for both examination are reviewed in the axial, sagittal, and coronal planes. IV contrast was not administered for this examination as per the referring clinician. Note that the examinations were performed and significantly suboptimal fashion without oral and IV contrast. The examination is compromised by motion artifact, as well as by streak artifact from the arms which could not be elevated above the abdomen or pelvis. A dose lowering technique was utilized adhering to the principles of ALARA. CT DOSE: 1389.54 mGycm FINDINGS: Lung bases: The heart is top normal in size and without pericardial effusion. The coronary arteries are densely calcified. There is diminished attenuation of the cardiac blood pool as compared to the myocardium suggesting anemia. There is dense left lower lobe consolidation. Segmental atelectasis is seen at the right lung base. Trace pleural effusion is seen on the left. Liver: The unenhanced liver is normal in size, contour, and attenuation. There is no intrahepatic biliary ductal dilatation. Gallbladder: Unremarkable. Spleen: Normal in size and attenuation. Pancreas: There is near complete fatty atrophy of the pancreas. Adrenal glands: Unremarkable. Kidneys: The unenhanced kidneys demonstrate cortical atrophy and are without hydronephrosis. There are no renal calculi identified. There is no evidence of contour deforming renal mass lesion. Abdominal vasculature: The abdominal aorta is normal in course and caliber noting advanced atherosclerotic calcification. Stomach and bowel: The enteric tube is in place and terminates in the gastric fundus. There is mild to moderate colonic fecal retention. No bowel obstruction is seen. The appendix is normal as visualized. Peritoneum: There is trace free fluid in the pelvis. No intraperitoneal free air is seen. Lymphadenopathy: None. Pelvic viscera: The bladder is decompressed around a Peña catheter and grossly unremarkable. The prostate gland is diminutive and heterogeneous. The seminal vesicles are normal as imaged. Skeletal structures: The skeletal structures are osteopenic. The bony pelvis and left proximal femur are intact. See below for discussion of the right hip. There are acute to subacute appearing right anterior fourth through seventh rib fractures. Additional bilateral rib fractures are likely chronic. There is a mild chronic compression deformity of L1. Moderate lumbosacral spondylosis is observed. No lytic or blastic lesions are seen. RIGHT HIP: There is a comminuted and displaced intertrochanteric/subtrochanteric fracture of the right proximal femur with numerous distracted fragments and surrounding hemorrhage. The larger fragments are offset by 1.5 cm. The visualized right hemipelvis appears intact. There is a small amount of intramuscular hemorrhage within the right gluteal, adductor, and proximal thigh musculature. Soft tissue edema overlies the right hip. IMPRESSION: 1. Significantly suboptimal examination without oral and IV contrast. The examinations are also compromised by streak and motion artifact. 2. There is dense left lower lobe airspace consolidation. Correlate clinically for evidence of pneumonia/aspiration pneumonitis. 3. There is no evidence of solid organ injury in the abdomen or pelvis on this unenhanced examination. 4. There are acute to subacute appearing right anterior rib fractures. Correlate for point tenderness. 5. Trace nonspecific free fluid is seen in the pelvis. 6. There is a comminuted and displaced intertrochanteric/subtrochanteric fracture of the right proximal femur with surrounding hemorrhage and numerous distracted fragments. 7. There is a small amount of intramuscular hemorrhage within the right gluteal, adductor, and proximal thigh musculature. 8. Additional findings above. ACT 112: Negative or not required by law. Electronically signed by: Saleem Doll M.D. 07/31/2022 10:[address] 07/31/22 09:00 CT chest diagnostic wo con CLINICAL HISTORY: hypoxia TECHNIQUE: Multidetector row helical CT of the chest was performed. Coronal and sagittal reformations were obtained. Automated dose lowering techniques and/or adjustment according to patient size were utilized for this exam. CT DOSE: 582.33 mGycm Comparison: Comparison is made to CT chest 07/29/2022 FINDINGS: Lungs and pleura: There is atelectasis in the left lung with collapse of left lower lobe, new from prior exam. Mild atelectasis is in the right lower lobe as well. Endotracheal tube terminates approximately 6 cm above the thor. Heart and pericardium: Cardiomegaly is seen with biatrial enlargement. Vessels: The pulmonary trunk is enlarged measuring 40 mm. Moderate atherosclerotic disease is seen. Stable ectasia of the ascending aorta measuring up to 40 mm. Mediastinum and enedelia: Subcentimeter lymph nodes are seen. Chest wall and lower neck: Unremarkable. Abdomen: Enteric tube terminates within the stomach. Bones: Right-sided rib fractures are again seen. Old healed rib fractures are noted alongside degenerative changes. IMPRESSION: 1. There is interval atelectasis of the left greater than right lower lung with collapse of the left lower lobe. Superimposed pneumonia/aspiration cannot be entirely excluded. 2. Redemonstration of rib fractures. 3. Pulmonary hypertension. ACT 112: Negative or not required by law. Electronically signed by: Abner Shah M.D. 07/31/2022 10:11 AM Chest X-Ray 07/31/22 09:00 SINGLE VIEW CHEST CLINICAL HISTORY: Central venous catheter placement. FINDINGS: An AP, portable, supine chest radiograph is compared to study dated 07/31/2022 and correlated with chest CT dated 07/29/2022. The examination is degraded by portable technique and patient rotation. A left internal jugular central venous catheter has been placed. The tip of the catheter projects over the confluence of the innominate veins. An endotracheal tube and enteric tube are unchanged in position. The heart is mildly enlarged noting atherosclerotic calcification of the thoracic aorta. The pulmonary vasculature is not congested. There is left basilar consolidation and a small left pleural effusion. Increasing atelectasis is seen at the right lung base. No pneumothorax is seen. The skeletal structures are osteopenic. There are several right-sided rib fractures. Advanced arthritic change is seen in the right shoulder. IMPRESSION: 1. A left internal jugular central venous catheter has been placed as above. No pneumothorax is seen post procedure. 2. The remaining lines and tubes are unchanged. 3. There is left basilar consolidation and a small right pleural effusion. This is new from there are 07/29/2022 CT scan. ACT 112: Negative or not required by law. Electronically signed by: Saleem Doll M.D. 07/31/2022 9:[address] 07/31/22 09:32 CT SCAN OF THE ABDOMEN AND PELVIS WITHOUT IV CONTRAST; CT SCAN OF THE RIGHT HIP WITHOUT IV CONTRAST CLINICAL HISTORY: Fall. Hypoxia. Change in mental status. Right hip pain. COMPARISON STUDY: Abdominal CT dated 04/13/2022. Radiographs of the right hip dated 07/29/2022. TECHNIQUE: CT scan of the abdomen and pelvis is performed from the lung bases to the proximal femora. Additionally, CT scan of the right hip is performed from the bony pelvis to the femoral shaft. Images for both examination are reviewed in the axial, sagittal, and coronal planes. IV contrast was not administered for this examination as per the referring clinician. Note that the examinations were performed and significantly suboptimal fashion without oral and IV contrast. The examination is compromised by motion artifact, as well as by streak artifact from the arms which could not be elevated above the abdomen or pelvis. A dose lowering technique was utilized adhering to the principles of ALARA. CT DOSE: 1389.54 mGycm FINDINGS: Lung bases: The heart is top normal in size and without pericardial effusion. The coronary arteries are densely calcified. There is diminished attenuation of the cardiac blood pool as compared to the myocardium suggesting anemia. There is dense left lower lobe consolidation. Segmental atelectasis is seen at the right lung base. Trace pleural effusion is seen on the left. Liver: The unenhanced liver is normal in size, contour, and attenuation. There is no intrahepatic biliary ductal dilatation. Gallbladder: Unremarkable. Spleen: Normal in size and attenuation. Pancreas: There is near complete fatty atrophy of the pancreas. Adrenal glands: Unremarkable. Kidneys: The unenhanced kidneys demonstrate cortical atrophy and are without hydronephrosis. There are no renal calculi identified. There is no evidence of contour deforming renal mass lesion. Abdominal vasculature: The abdominal aorta is normal in course and caliber noting advanced atherosclerotic calcification. Stomach and bowel: The enteric tube is in place and terminates in the gastric fundus. There is mild to moderate colonic fecal retention. No bowel obstruction is seen. The appendix is normal as visualized. Peritoneum: There is trace free fluid in the pelvis. No intraperitoneal free air is seen. Lymphadenopathy: None. Pelvic viscera: The bladder is decompressed around a Peña catheter and grossly unremarkable. The prostate gland is diminutive and heterogeneous. The seminal vesicles are normal as imaged. Skeletal structures: The skeletal structures are osteopenic. The bony pelvis and left proximal femur are intact. See below for discussion of the right hip. There are acute to subacute appearing right anterior fourth through seventh rib fractures. Additional bilateral rib fractures are likely chronic. There is a mild chronic compression deformity of L1. Moderate lumbosacral spondylosis is observed. No lytic or blastic lesions are seen. RIGHT HIP: There is a comminuted and displaced intertrochanteric/subtrochanteric fracture of the right proximal femur with numerous distracted fragments and surrounding hemorrhage. The larger fragments are offset by 1.5 cm. The visualized right hemipelvis appears intact. There is a small amount of intramuscular hemorrhage within the right gluteal, adductor, and proximal thigh musculature. Soft tissue edema overlies the right hip. IMPRESSION: 1. Significantly suboptimal examination without oral and IV contrast. The examinations are also compromised by streak and motion artifact. 2. There is dense left lower lobe airspace consolidation. Correlate clinically for evidence of pneumonia/aspiration pneumonitis. 3. There is no evidence of solid organ injury in the abdomen or pelvis on this unenhanced examination. 4. There are acute to subacute appearing right anterior rib fractures. Correlate for point tenderness. 5. Trace nonspecific free fluid is seen in the pelvis. 6. There is a comminuted and displaced intertrochanteric/subtrochanteric fracture of the right proximal femur with surrounding hemorrhage and numerous distracted fragments. 7. There is a small amount of intramuscular hemorrhage within the right gluteal, adductor, and proximal thigh musculature. 8. Additional findings above. ACT 112: Negative or not required by law. Electronically signed by: Saleem Doll M.D. 07/31/2022 10:24 AM PG Care Time/CCT Total # of Minutes Spent Total Time Spent with Patient: Total time spent is greater than 50% in coordination of care (as documented) at patient's floor/unit and/or counseling patient: Coding Level of Care Code 39015 SUB INP/OBS CARE 3/50MIN Diagnoses Closed intertrochanteric fracture of femur S72.143A Multiple fractures of rib involving four or more ribs S22.49XA Transaminitis R74.01 Diabetes mellitus type 2 in obese E11.69; E66.9 Hx of deep venous thrombosis Z86.718 SDAT (senile dementia of Alzheimer's type) G30.1; F02.80 Paroxysmal atrial fibrillation I48.0 Hypertension I10
[2022-07-31] MEDS: PIPERACILLIN/TAZOBACTAM 4.5 GM in DEXTROSE 5% 100 ML IV SCH (15:43)
[2022-07-31] MEDS: LATANOPROST 0.005% OP SOLN 2.5 ML BTL OPB SCH (20:54)
[2022-08-01] MEDS: ARTIFICIAL TEARS OP OINT 3.5 GM TUBE OP SCH ×3 (00:23→10:44)
[2022-08-01] MEDS: INSULIN ASPART PER UNIT CHARGE SC SCH ×4 (00:29→18:26)
[2022-08-01] MEDS: PIPERACILLIN/TAZOBACTAM 4.5 GM in DEXTROSE 5% 100 ML IV SCH ×3 (00:29→17:21)
[2022-08-01 04:57] LABS: iSTAT Allen Test Pass; iSTAT Arterial Blood Gas HCO3 26 meg/L (19-24); iSTAT Arterial Blood Gas pCO2 45 mmHg (35-46); iSTAT Arterial Blood Gas pH 7.36 (7.35-7.45); iSTAT Arterial Blood Gas pO2 65 mmHg (80-95); iSTAT Carbon Dioxide 27 mmol/L (24-31); iSTAT FiO2 45 %; iSTAT Site R Radial
[2022-08-01 05:13] LABS: Basophils # (auto) 0.04 K/uL (0-0.2); Basophils % (auto) 0.5 %; Eosinophils # (auto) 0.13 K/uL (0-0.50); Eosinophils % (auto) 1.5 %; Hematocrit (blood only) 24.3 % (42.0-52.0); Hemoglobin 8.5 g/dl (14.0-18.0); Immature Granulocytes # (auto) 0.03 K/uL (0.01-0.20); Immature Granulocytes % (auto) 0.4 %; Lymphocytes % (auto) 15.3 %; Mean Corpuscular Hemoglobin 32.8 pg (25.0-34.0); Mean Corpuscular Volume 93.8 fL (80.0-100.0); Mean Platelet Volume 9.6 fL (9.4-12.4); Monocytes # (auto) 0.62 K/uL (0.11-0.59); Monocytes % (auto) 7.3 %; Neutrophils # (auto) 6.35 K/uL (1.40-6.50); Platelet Count 129 K/uL (130-400); RDW Coefficient of Variation 12.8 % (11.5-14.5); Red Blood Count 2.59 M/uL (4.70-6.10); White Blood Count 8.47 K/ul (4.8-10.8)
[2022-08-01 05:18] LABS: BUN Creatinine Ratio 24.2 (10-20); Calcium 7.9 mg/dl (8.5-10.1); Creatinine Clr Calc Pharmacy 32.8 ml/min; Est GFR (African American) 38.9 ml/min; Est GFR (Non-African American) 33.6 ml/min; Magnesium 2.1 mg/dl (1.7-2.4); Potassium 4.4 mmol/L (3.5-5.1)
[2022-08-01 05:34] LABS: INR 1.1 (0.9-1.1); Prothrombin Time 11.7 Seconds (9.0-12.0)
--- NOTE | 2022-08-01 08:07 | Progress Notes ---
DATE OF SERVICE: 08/01/2022. SUBJECTIVE: An 82-year-old gentleman admitted status post a fall with a right intertrochanteric femu r fracture as well as multiple rib fractures. He has got multiple medical comorbidities, went into r espiratory arrest yesterday morning. He is currently intubated and sedated. We held off on his surg [place]. Does not look like there has been much change in his status. OBJECTIVE: VITAL SIGNS: Temperature 36.9. Vital signs look pretty stable. GENERAL: He is an elderly male. He is intubated and sedated. Exam is limited. EXTREMITIES: His right leg is slightly shortened and externally rotated. ASSESSMENT: An 82-year-old gentleman, [employer], admitted status post a fall with right intertrochanteric hip fracture as well as multiple rib fractures, currently sedated and intubated. Surgery is on hold for now. PLAN: We will continue to check on him intermittently. If things turn around and he is ready for surgery, or think he has had it that way let us know, that will be great. In the meantime, needs aggressive medical management. Any orthopedic questions can be directed to me at [phone]. Job ID: [id number]
--- NOTE | 2022-08-01 08:18 | XRay Report ---
SINGLE VIEW CHEST CLINICAL HISTORY: Respiratory failure. FINDINGS: An AP, portable, upright chest radiograph is compared to chest x-ray and chest CT dated 07/31. The examination is degraded by portable technique and patient rotation. An endotracheal tube, an enteric tube, and the left internal jugular central venous catheter are unchanged in position. The heart is enlarged noted atherosclerotic calcification of the thoracic aorta. The pulmonary vasculatu re is noncongested. Chronic interstitial thickening is similar to previous. Airspace consolidation an d a small pleural effusion is incidental left lung base. There is right basilar atelectasis. No pneum othorax is seen. The skeletal structures are osteopenic. The bony thorax is grossly intact. Arthritic change is noted in the shoulders. IMPRESSION: 1. Stable lines and tubes. 2. Cardiomegaly without radiographic evidence of congestive failure. 3. Left basilar consolidation persists.. ACT 112: Negative or not required by law. Electronically signed by: Saleem Doll M.D. 08/01/2022 8:16 AM
[2022-08-01] MEDS: PANTOprazole 40 MG in SYRINGE 0 ML IV SCH ×2 (08:50→22:03)
--- NOTE | 2022-08-01 09:21 | Critical Care Progress Note ---
Date of Service August 01, 2022 Assessment & Plan (1) Acute hypoxemic respiratory failure: (2) Septic shock: (3) ARDS (adult respiratory distress syndrome): (4) Aspiration pneumonia: (5) Acute hemorrhage: (6) Refusal of blood transfusions as patient is Judaism: Plan 82-year-old male who presented to the hospital as a trauma now found to have acute hemorrhage, aspiration pneumonia, hypoxemic respiratory failure and septic shock Status post bronch 07/31/2022 with significant mucopurulent secretions aspirated. Oxygenation improved post bronchoscopy. Cultures pending. Continue broad- spectrum antibiotics. IVETT resolving. Patient weaned off pressors. Hemorrhage noted around femur fracture which appears to have stabilized. Hemoglobin stable at this time. Patient is a Judaism and family adamantly refuses blood products. Patient will ultimately need fixation of his femur fracture once stabilized. Not a candidate for anticoagulation at this time. We will reassess over the next 24 hours. Currently on trial of sedation vacation and SBT. We will consider extubating this morning. If all goes well with extubation, will likely downgrade the patient later today. CRITICAL CARE TIME - I have personally spent 44 minutes of critical care time in the direct management of this patient. This is a life/limb threatening event. This includes time spent evaluating patient, direct bedside care, chart review, placing orders, interpretation of diagnostic studies, discussion with consultants, patient, and family members, as well as other required patient management activities. This time is exclusive of all separately billable procedures, and teaching time and separate from and in addition to any other critical care service time. Admission and Anticipated Discharge Date Admission Date: July 29, 2022 Subjective Patient improved today. Following commands. Off sedation. Currently on spontaneous breathing trial. Pressors weaned off. Review of Systems Review of Systems: Unobtainable due to endotracheal tube Physical Exam Physical Exam: Constitutional: Intubated and lethargic Eyes: Pupils are equal round and reactive to light. Conjunctivae are normal. Anicteric sclera. Ears nose, mouth and throat: ET tube in place Neck: Trachea is midline. Visual inspection is normal. Respiratory: Rhonchi which are clear compared to yesterday Cardiovascular: Regular rate and rhythm. No murmurs. No edema. Gastrointestinal: Normal bowel sounds, soft, nontender and nondistended. No hepatosplenomegaly noted. Musculoskeletal: No cyanosis. Patient is able to move all extremities. Skin: No rashes, warm dry and intact. Neurologic: Able to squeeze my hands bilaterally. No obvious focal deficits. Pupils equal and round. Psychiatric: Obtunded upon initial evaluation. Results & Data Results & Data ([facility]) Vital Signs (Past 12 Hours) Vital Signs Temp Pulse Resp BP Pulse Ox O2 Del Method FiO2 08/01/22 08:11 72 08/01/22 08:10 36.6 C 08/01/22 08:06 35 08/01/22 08:00 73 16 96 Mechanical Vent 08/01/22 07:45 138/80 08/01/22 07:45 73 16 96 08/01/22 07:30 122/61 08/01/22 07:30 70 16 97 08/01/22 07:15 69 16 95 08/01/22 07:15 122/59 L 08/01/22 07:00 72 16 94 08/01/22 07:00 119/63 08/01/22 08:01 16 35 08/01/22 07:00 Mechanical Vent 45 08/01/22 06:40 69 16 96 08/01/22 06:30 70 16 95 08/01/22 06:20 69 16 96 08/01/22 06:15 126/60 08/01/22 06:15 70 16 96 08/01/22 06:10 70 16 95 08/01/22 06:00 70 16 96 08/01/22 06:00 119/60 08/01/22 05:30 72 16 95 08/01/22 05:30 124/60 08/01/22 05:00 75 16 96 08/01/22 04:45 75 16 94 08/01/22 04:45 137/65 08/01/22 04:30 75 16 94 08/01/22 04:00 79 18 76 L 08/01/22 04:00 126/57 L 08/01/22 03:30 36.9 C 62 16 97 08/01/22 03:30 113/52 L 08/01/22 03:15 112/55 L 08/01/22 03:15 63 16 97 08/01/22 03:00 63 16 97 08/01/22 03:00 111/52 L 08/01/22 03:00 45 08/01/22 02:45 64 17 96 08/01/22 02:45 114/55 L 08/01/22 02:30 65 16 95 08/01/22 02:30 127/59 L 08/01/22 02:15 63 16 96 08/01/22 02:15 118/55 L 08/01/22 02:00 63 16 95 08/01/22 02:00 128/61 08/01/22 01:45 62 16 96 08/01/22 02:40 68 16 94 45 08/01/22 01:39 71 08/01/22 01:30 63 16 95 08/01/22 01:30 107/52 L 08/01/22 01:15 106/55 L 08/01/22 01:15 64 16 95 08/01/22 01:00 65 13 94 08/01/22 00:45 70 14 92 08/01/22 00:45 111/75 08/01/22 00:30 65 14 96 08/01/22 00:15 103/51 L 08/01/22 00:15 66 13 96 08/01/22 00:00 66 13 96 08/01/22 00:00 37.2 C 101/50 L 07/31/22 23:45 68 14 96 07/31/22 23:45 116/50 L 07/31/22 23:30 68 13 96 07/31/22 23:30 108/51 L 07/31/22 23:15 109/52 L 07/31/22 23:15 68 13 97 07/31/22 23:00 68 13 93 07/31/22 23:00 106/51 L 07/31/22 22:45 69 13 93 07/31/22 22:45 105/51 L 07/31/22 22:30 68 13 97 07/31/22 22:15 102/52 L 07/31/22 22:15 67 16 95 07/31/22 22:00 67 16 95 07/31/22 22:00 109/51 L 07/31/22 21:45 110/51 L 07/31/22 21:45 69 16 97 07/31/22 21:30 67 16 94 07/31/22 21:30 105/48 L 07/31/22 23:49 45 07/31/22 22:29 69 16 94 40 Coding Level of Care Code 49030 CRITICAL CARE 1ST 30-74M Diagnoses Acute hypoxemic respiratory failure J96.01 Septic shock A41.9; R65.21 ARDS (adult respiratory distress syndrome) J80 Aspiration pneumonia J69.0 Acute hemorrhage R58 Refusal of blood transfusions as patient is Judaism Z53.1 Time Spent (min) 44
[2022-08-01] MEDS ORDERED: AMIODARONE 200 MG TAB PO ONE (09:45)
--- NOTE | 2022-08-01 09:56 | XCELERA ---
[id number]
[2022-08-01 11:33] LABS: A calco-baum cmplx NotReported Not Detected (NotDetected); Bact fragilis Not Reported Not Detected (NotDetected); C auris Not Reported Not Detected (NotDetected); Calbicans Not Reported Not Detected (NotDetected); Candida glabrata Not Reported Not Detected (NotDetected); Candida krusei Not Reported Not Detected (NotDetected); Cneoformans/gatti Not Reported Not Detected (NotDetected); Cparapsilosis Not Reported Not Detected (NotDetected); Ctropicalis Not Reported Not Detected (NotDetected); E cloacae compx Not Reported Not Detected (NotDetected); Efaecalis Not Reported Not Detected (NotDetected); Efaecium Not Reported Not Detected (NotDetected); Enterobacterales Not Reported Not Detected (NotDetected); Escherichia coli Not Reported Not Detected (NotDetected); H influenzae Not Reported Not Detected (NotDetected); K aerogenes Not Reported Not Detected (NotDetected); Koxytoca Not Reported Not Detected (NotDetected); Kpneumoniae grp Not Reported Not Detected (NotDetected); Lmonocyt Not Reported Not Detected (NotDetected); N meningitidis Not Reported Not Detected (NotDetected); P aeruginosa Not Reported Not Detected (NotDetected); Proteus spp Not Reported Not Detected (NotDetected); Salmonella spp Not Reported Not Detected (NotDetected); Smarcescens Not Reported Not Detected (NotDetected); Staph lugdunensis Not Reported Not Detected (NotDetected); Staphaureus Not Reported Not Detected (NotDetected); Staphepi Not Reported Not Detected (NotDetected); Staphylococcus spp. DETECTED (NotDetected); Stenmaltophilia Not Reported Not Detected (NotDetected); Strep agal(GrpB) Not Reported Not Detected (NotDetected); Strep pneum Not Reported Not Detected (NotDetected); Strep pyog (GrpA) Not Reported Not Detected (NotDetected); Strep spp Not Reported Not Detected (NotDetected)
[2022-08-01 11:45] LABS: Staph spp. Not Reported DETECTED (NotDetected)
[2022-08-01] MEDS: ACETAMINOPHEN 1,000 MG/100 ML VIAL IV PRN (13:32)
--- NOTE | 2022-08-01 13:47 | Palliative Care Consultation ---
Date of Consultation August 01, 2022 Assessment & Plan (1) Pain: with right hip fracture and multiple rib fractures. He remains hypotensive requiring high flow O2. Would avoid opioids for now. Added IV acetaminophen to be used as needed with monitoring of mild transaminitis. He reports being comfortable at rest. (2) Palliative care encounter: Per Mr. Jones's and son, he was active and independent prior to his fall. 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 His family feels that if he were not able to do that, it would be a significant detriment to his quality of life. They tell me that he has an advance directive and has said in the past that if his heart stops, he would want to go peacefully. They also tell me that since he was extubated, he has said "let me go". He is currently a limited code with no CPR but with intubation after family discussion with Dr. Acuña. We talked about what they thought he would want if his respiratory status declines. All family members in the room including his , son and sister, felt that he would want reintubation for the short term. We discussed concern that this would be of limited value with no CPR and the high risk of failure to wean from the vent. We also discussed concern that he would have chcf effects from this and possibly deferred surgery that would severely limit what he has defined as quality of life. They are all in agreement that they would want to try intubation for short term but would not want chcf vent support or tracheostomy. I asked them to bring a copy of his advance directive that we could review together to ensure that we are following his wishes and will follow up if he is able to have goals of care discussion to have him express his wishes. History of Present Illness Reason for Consultation: goals of care Requesting Physician: Dr. Acuña Attending Physician: Fracisco Pizarro MD History of Present Illness 82 yo gentleman who presented with comminuted, displaced right femur fracture after a fall in his garage. 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 He also has a history of mild dementia and a hemorrhagic CVA in January 2022. He did have some hemorrhage within the surrounding musculature was a significant drop in his hemoglobin. He had been scheduled for surgery but had a code purple with acute respiratory failure and p ossible aspiration. CT shows dense left lower lobe consolidation. He had been intubated, on pressor support but has since been weaned from pressors and extubated. He is lethargic but arousable and is able to answer a few questions. He complains of pain in his chest with acute/subacute rib fractures and hip pain with position change. During the course of our visit, his O2 sat dropped into the low 80s, requiring high flow O2. Per his , he had been independent with all ADLs at home and was in the garage checking the mower, looking forward to starting to mow later this spring. Allergies Allergy/AdvReac Type Severity Reaction Status Date / Time meperidine AdvReac Intermediate OVER-SEDATION, Verified 07/29/22 19:58 N/V W/ SYNCOPE sertraline [From Zoloft] AdvReac Intermediate Dizziness Verified 07/29/22 19:58 Home Medications Medication Instructions Recorded Confirmed Type latanoprost 0.005 % eye drops 1 drp OPB HS 06/28/18 07/29/22 History mecobalamin (vitamin B12) 1,000 1,000 mcg PO QAM 03/21/20 07/29/22 History mcg chewable tablet leuprolide acetate (6 month) 45 mg 45 mg IM Q24W #1 ea 04/25/20 07/29/22 Rx intramuscular syringe kit (Lupron Depot) warfarin 3 mg tablet 4.5 mg PO WK 06/18/21 07/29/22 History blood sugar diagnostic #100 ea 02/25/22 06/28/22 Rx carvedilol 6.25 mg tablet 6.25 mg PO BID #180 tabs 03/01/22 07/29/22 Rx amiodarone 200 mg tablet 200 mg PO QAM #90 tabs 03/18/22 07/29/22 Rx metformin 500 mg tablet 500 mg PO BID #180 tabs 04/08/22 07/29/22 Rx amlodipine 2.5 mg tablet 2.5 mg PO DAILY #90 tabs 06/28/22 07/29/22 Rx atorvastatin 40 mg tablet 40 mg PO HS #90 tabs 07/17/22 07/29/22 Rx lisinopril 10 mg tablet 10 mg PO QAM 07/29/22 07/29/22 History polyethylene glycol 3350 17 gram 17 g PO BID PRN Constipation 07/29/22 07/29/22 History oral powder packet (Miralax) warfarin 3 mg tablet 3 mg PO [id number] 07/29/22 07/29/22 History Patient History Medical History Acute hemorrhage Acute hypoxemic respiratory failure Acute spont intraparenchymal hemorrhage assoc w/ hypertension Antithrombin III deficiency FOLLOWS PCP > DR. TAN/LOC - ON COUMADIN ARDS (adult respiratory distress syndrome) Aspiration pneumonia Blurred vision, bilateral Cataract RT/LEFT Chest pain Constipation Diabetes mellitus type 2 in obese Dizziness Forgetfulness "RELATED TO AGE" Glaucoma LEFT EYE History of adenomatous polyp of colon History of atrial fibrillation History of hemorrhagic stroke with residual hemiparesis History of prostate cancer History of skin cancer MELANOMA AND BASAL CELL Hx of deep venous thrombosis SEVERAL YEARS AGO, REASON FOR COUMADIN Hx pulmonary embolism WITH DVT ? YEAR "A FEW YEARS AGO" Hyperlipidemia Hypertension Hypertensive heart disease preserved LV function Hypertensive urgency Obstructive sleep apnea no device used (could not tolerate) Osteoarthritis Prostate cancer Refusal of blood transfusions as patient is Hindu Septic shock Thoracic ascending aortic aneurysm UNSURE ABOUT DX Surgical History History of cardioversion (11/2018) X 4--last 06/22/21 @ [facility] History of colonoscopy History of local excision of skin lesion MULTIPLE REMOVAL History of nasal septoplasty multiple-with Celon turbinate reduction History of tooth extraction Hx of colonoscopy Hx of prostate biopsy Family History Mother Venous embolism and thrombosis of deep vessels of lower extremity Cancer Father Stroke syndrome Other No family history of adverse response to anesthesia No family history of bleeding disorder No pertinent family history Denies family history of Ovarian cancer Prostate cancer Coronary heart disease Alzheimer disease Bipolar disorder Breast cancer COPD (chronic obstructive pulmonary disease) Colorectal cancer Asthma Social History Smoking Status: Never smoker Second Hand Exposure: Yes; Do You Dip or Chew Tobacco: No; Hx Alcohol Use: No Hx Substance Use: No Preferred Language: Lithuanian Communication Ability: Effective Visual Impairment: No Limitations Hearing Ability: Normal Internal Grinder Tender Required: No Beliefs That Will Affect Care: Pentecostalism Pentecostalism Beliefs: Pt is Jehova's witness will not use blood products marital status: Current Living Situation: Spouse current occupational status: retired current occupation: Worked at [employer] How many Children do You have: 2 Other Information That Helps Us Care for You: No Feels Safe at Home: Yes Safety Concerns: Feels Safe At This Time Childhood Exposure to Second-Hand Smoke: No caffeine: No during the past year weight has: remained stable Dental Care, Regularly: Yes Physical Activity Frequency: Does not Exercise Seatbelt Use: always Sunscreen Use: No Assistive Devices: Cane and Walker Review of Systems Review of Systems: ESAS Pain 2/3 Dyspnea 0/3 Drowsiness 2/3 Physical Exam Constitutional: + lethargic; no acute distress ENMT: Mouth: + dry oral mucous membranes Respiratory: uses accessory muscles Cardiovascular: Rate/Rhythm: + irregularly irregular Gastrointestinal (Abdomen): soft, nontender Results & Data ([facility]) Vital Signs (Past 12 Hours) Vital Signs Temp Pulse Resp BP Pulse Ox O2 Del Method O2 Flow Rate 08/01/22 11:30 89 16 95 08/01/22 11:30 104/61 08/01/22 11:15 82 14 94 Nasal Cannula 5 08/01/22 11:15 124/59 L 08/01/22 11:01 84 18 93 08/01/22 11:00 109/55 L 08/01/22 10:59 84 21 94 08/01/22 10:45 86 18 91 08/01/22 10:45 126/62 08/01/22 10:43 130/73 08/01/22 10:43 81 16 95 08/01/22 10:30 79 15 87 L 08/01/22 10:30 98/69 L 08/01/22 10:54 84 95 08/01/22 10:15 78 15 90 08/01/22 10:15 119/61 08/01/22 10:00 78 15 97 08/01/22 10:00 126/65 08/01/22 09:45 78 12 90 08/01/22 09:45 106/59 L 08/01/22 09:30 78 12 95 08/01/22 09:21 81 9 L 08/01/22 09:21 117/60 08/01/22 09:15 80 12 89 L 08/01/22 09:00 80 12 91 08/01/22 08:48 79 11 L 90 08/01/22 08:48 116/55 L 08/01/22 08:45 79 12 92 08/01/22 08:30 75 10 L 91 08/01/22 08:30 127/68 08/01/22 08:15 75 16 93 08/01/22 08:11 72 08/01/22 08:10 97.9 F 08/01/22 08:06 08/01/22 08:00 73 16 96 Mechanical Vent 08/01/22 07:45 138/80 08/01/22 07:45 73 16 96 08/01/22 07:30 122/61 08/01/22 07:30 70 16 97 08/01/22 07:15 69 16 95 08/01/22 07:15 122/59 L 08/01/22 07:00 72 16 94 08/01/22 07:00 119/63 08/01/22 08:01 16 08/01/22 07:00 Mechanical Vent 08/01/22 06:40 69 16 96 08/01/22 06:30 70 16 95 08/01/22 06:20 69 16 96 08/01/22 06:15 126/60 08/01/22 06:15 70 16 96 08/01/22 06:10 70 16 95 08/01/22 06:00 70 16 96 08/01/22 06:00 119/60 08/01/22 05:30 72 16 95 08/01/22 05:30 124/60 08/01/22 05:00 75 16 96 08/01/22 04:45 75 16 94 08/01/22 04:45 137/65 08/01/22 04:30 75 16 94 08/01/22 04:00 79 18 76 L 08/01/22 04:00 126/57 L 08/01/22 03:30 98.4 F 62 16 97 08/01/22 03:30 113/52 L 08/01/22 03:15 112/55 L 08/01/22 03:15 63 16 97 08/01/22 03:00 63 16 97 08/01/22 03:00 111/52 L 08/01/22 03:00 08/01/22 02:45 64 17 96 08/01/22 02:45 114/55 L 08/01/22 02:30 65 16 95 08/01/22 02:30 127/59 L 08/01/22 02:15 63 16 96 08/01/22 02:15 118/55 L 08/01/22 02:00 63 16 95 08/01/22 02:00 128/61 08/01/22 01:45 62 16 96 08/01/22 02:40 68 16 94 08/01/22 01:39 71 FiO2 08/01/22 11:30 08/01/22 11:30 08/01/22 11:15 08/01/22 11:15 08/01/22 11:01 08/01/22 11:00 08/01/22 10:59 08/01/22 10:45 08/01/22 10:45 08/01/22 10:43 08/01/22 10:43 08/01/22 10:30 08/01/22 10:30 08/01/22 10:54 08/01/22 10:15 08/01/22 10:15 08/01/22 10:00 08/01/22 10:00 08/01/22 09:45 08/01/22 09:45 08/01/22 09:30 08/01/22 09:21 08/01/22 09:21 08/01/22 09:15 08/01/22 09:00 08/01/22 08:48 08/01/22 08:48 08/01/22 08:45 08/01/22 08:30 08/01/22 08:30 08/01/22 08:15 08/01/22 08:11 08/01/22 08:10 08/01/22 08:06 35 08/01/22 08:00 08/01/22 07:45 08/01/22 07:45 08/01/22 07:30 08/01/22 07:30 08/01/22 07:15 08/01/22 07:15 08/01/22 07:00 08/01/22 07:00 08/01/22 08:01 35 08/01/22 07:00 45 08/01/22 06:40 08/01/22 06:30 08/01/22 06:20 08/01/22 06:15 08/01/22 06:15 08/01/22 06:10 08/01/22 06:00 08/01/22 06:00 08/01/22 05:30 08/01/22 05:30 08/01/22 05:00 08/01/22 04:45 08/01/22 04:45 08/01/22 04:30 08/01/22 04:00 08/01/22 04:00 08/01/22 03:30 08/01/22 03:30 08/01/22 03:15 08/01/22 03:15 08/01/22 03:00 08/01/22 03:00 08/01/22 03:00 45 08/01/22 02:45 08/01/22 02:45 08/01/22 02:30 08/01/22 02:30 08/01/22 02:15 08/01/22 02:15 08/01/22 02:00 08/01/22 02:00 08/01/22 01:45 08/01/22 02:40 45 08/01/22 01:39 PG Care Time/CCT Total # of Minutes Spent Total Time Spent: 70 Total Time Spent with Patient: Total time spent is greater than 50% in coordination of care (as documented) at patient's floor/unit and/or counseling patient: [id number] goals of care, symptom management, patient and family education and support Coding Level of Care Code 99402 INT INP/OBS CARE 2/55MIN Diagnoses Pain R52 Palliative care encounter Z51.5
--- NOTE | 2022-08-01 15:16 | Hospitalist Progress Note ---
Date of Service August 01, 2022 Assessment & Plan (1) Closed intertrochanteric fracture of femur: Plan: Stabilization and pain control measures for now. Appreciate orthopedic consult and recommendations. Eventual surgical intervention if he stabilizes. (2) Multiple fractures of rib involving four or more ribs: Plan: Acute, RIGHT ribs 3-7. From fall at home. Pain control measures. Incentive s pirometry if able (3) Transaminitis: Plan: Multifactorial. No intervention necessary at this time. Serial labs (4) Diabetes mellitus type 2 in obese: Plan: Last a1c 6.1. Holding home metformin. 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 Managed with Warfarin, supratherapeutic INR of 3.4 on admission. Now reversed with vitamin K. (6) SDAT (senile dementia of Alzheimer's type): Plan: Memantine 5mg BID . Supportive care (7) Paroxysmal atrial fibrillation: Plan: Hx paroxysmal afib. On coumadin, amiodarone, coreg (8) Hypertension: Plan: Controlled with lisinopril, coreg, amlodipine. Hold meds as needed (9) Septic shock: Plan: Pressor support as needed. IV fluids as needed. (10) ARDS (adult respiratory distress syndrome): Plan: Suspected per critical care entry. Serial chest x-ray. Supportive care (11) Aspiration pneumonia: Plan: N.p.o. until more alert. Intravenous Zosyn therapy (12) Acute blood loss anemia: Plan: Baptism status precludes any blood transfusion. Hemoglobin 8.5 this a.m., August 01 Plan To be determined Admission and Anticipated Discharge Date Admission Date: July 29, 2022 Subjective The patient was extubated early this morning but still remains quite weak. He is able to converse but respiratory status remains quite tenuous. The patient and family are contemplating whether or not to reintubate if he progresses to that point. Coumadin has been stopped and reversed. INR now 1.1. Hemoglobin stable at 8.5. He is a Baptism and he and the family refused any blood transfusion. He did undergo bronchoscopy yesterday, July 31. No airway obstruction noted. I suspect he had an aspiration episode that caused his current respiratory issues. Review of Systems Review of Systems: Constitutional-no fever or chills ENT-no blurred vision, no double vision, no epistaxis, no sore throat Respiratory-right lateral chest wall pain with deep inspiration due to underlying rib fractures. Nonproductive cough, no wheezing, no shortness of breath Cardiac-no palpitations, no chest pain, no syncope GI-no nausea, vomiting, diarrhea, melena, hematochezia -no urinary retention, no urinary incontinence, no dysuria, no hematuria Musculoskeletal-multiple right lateral rib fractures and associated pain, right hip fracture and associated pain Skin-no bruising, no rashes, no pruritus Neuro-generalized weakness and advanced age debility Psych-no depression, no anxiety Physical Exam Physical Exam: General-awake and oriented. No fevers, no chills HEENT-head atraumatic and normocephalic, pupils equal and reactive to light, extraocular muscles intact Neck-no lymphadenopathy or thyromegaly, trachea midline Chest-shallow respirations. Scattered bilateral rhonchi. No wheezing Cardiac-irregular rhythm. Controlled rate. Normal S1 and S2 Abdomen-normal bowel sounds, nontender, no hepatosplenomegaly Extremities-right leg is slightly shortened from right hip fracture . Associated limited range of motion right hip Neuro-cranial nerves II through XII intact, motor and sensory function within normal limits, strength symmetrical but generalized weakness, no focal deficits Psych- depressed affect Results & Data Results & Data ([facility]) Vital Signs (Past 12 Hours) Vital Signs Temp Pulse Resp BP Pulse Ox O2 Del Method O2 Flow Rate 08/01/22 14:15 89/57 L 08/01/22 14:15 87 21 94 Oxymask 7 08/01/22 14:00 89 19 93 08/01/22 14:00 104/52 L 08/01/22 13:45 89 17 92 08/01/22 13:45 100/68 08/01/22 13:36 90 18 89 L 08/01/22 13:36 101/56 L 08/01/22 13:30 90 21 88 L 08/01/22 13:30 88/57 L 08/01/22 13:15 88 24 90 08/01/22 13:15 97/49 L 08/01/22 13:00 89 23 91 08/01/22 13:00 104/58 L 08/01/22 12:31 86 16 92 08/01/22 12:31 100/61 08/01/22 12:15 89 17 95 08/01/22 12:15 88/60 L 08/01/22 12:00 92 H 19 95 08/01/22 12:00 107/64 08/01/22 11:45 114/57 L 08/01/22 11:45 89 20 96 08/01/22 12:00 08/01/22 11:30 89 16 95 08/01/22 11:30 104/61 08/01/22 11:15 82 14 94 Nasal Cannula 5 08/01/22 11:15 124/59 L 08/01/22 11:01 84 18 93 08/01/22 11:00 109/55 L 08/01/22 10:59 84 21 94 08/01/22 10:45 86 18 91 08/01/22 10:45 126/62 08/01/22 10:43 130/73 08/01/22 10:43 81 16 95 08/01/22 10:30 79 15 87 L 08/01/22 10:30 98/69 L 08/01/22 10:54 84 95 08/01/22 10:15 78 15 90 08/01/22 10:15 119/61 08/01/22 10:00 78 15 97 08/01/22 10:00 126/65 08/01/22 09:45 78 12 90 08/01/22 09:45 106/59 L 08/01/22 09:30 78 12 95 08/01/22 09:21 81 9 L 08/01/22 09:21 117/60 08/01/22 09:15 80 12 89 L 08/01/22 09:00 80 12 91 08/01/22 08:48 79 11 L 90 08/01/22 08:48 116/55 L 08/01/22 08:45 79 12 92 08/01/22 08:30 75 10 L 91 08/01/22 08:30 127/68 08/01/22 08:15 75 16 93 08/01/22 08:11 72 08/01/22 08:10 36.6 C 08/01/22 08:06 08/01/22 08:00 73 16 96 Mechanical Vent 08/01/22 07:45 138/80 08/01/22 07:45 73 16 96 08/01/22 07:30 122/61 08/01/22 07:30 70 16 97 08/01/22 07:15 69 16 95 08/01/22 07:15 122/59 L 08/01/22 07:00 72 16 94 08/01/22 07:00 119/63 08/01/22 08:01 16 08/01/22 07:00 Mechanical Vent 08/01/22 06:40 69 16 96 08/01/22 06:30 70 16 95 08/01/22 06:20 69 16 96 08/01/22 06:15 126/60 08/01/22 06:15 70 16 96 08/01/22 06:10 70 16 95 08/01/22 06:00 70 16 96 08/01/22 06:00 119/60 08/01/22 05:30 72 16 95 08/01/22 05:30 124/60 08/01/22 05:00 75 16 96 08/01/22 04:45 75 16 94 08/01/22 04:45 137/65 08/01/22 04:30 75 16 94 08/01/22 04:00 79 18 76 L 08/01/22 04:00 126/57 L 08/01/22 03:30 36.9 C 62 16 97 08/01/22 03:30 113/52 L 08/01/22 03:15 112/55 L 08/01/22 03:15 63 16 97 08/01/22 03:00 63 16 97 08/01/22 03:00 111/52 L 08/01/22 03:00 FiO2 08/01/22 14:15 08/01/22 14:15 08/01/22 14:00 08/01/22 14:00 08/01/22 13:45 08/01/22 13:45 08/01/22 13:36 08/01/22 13:36 08/01/22 13:30 08/01/22 13:30 08/01/22 13:15 08/01/22 13:15 08/01/22 13:00 08/01/22 13:00 08/01/22 12:31 08/01/22 12:31 08/01/22 12:15 08/01/22 12:15 08/01/22 12:00 08/01/22 12:00 08/01/22 11:45 08/01/22 11:45 08/01/22 12:00 35 08/01/22 11:30 08/01/22 11:30 08/01/22 11:15 08/01/22 11:15 08/01/22 11:01 08/01/22 11:00 08/01/22 10:59 08/01/22 10:45 08/01/22 10:45 08/01/22 10:43 08/01/22 10:43 08/01/22 10:30 08/01/22 10:30 08/01/22 10:54 08/01/22 10:15 08/01/22 10:15 08/01/22 10:00 08/01/22 10:00 08/01/22 09:45 08/01/22 09:45 08/01/22 09:30 08/01/22 09:21 08/01/22 09:21 08/01/22 09:15 08/01/22 09:00 08/01/22 08:48 08/01/22 08:48 08/01/22 08:45 08/01/22 08:30 08/01/22 08:30 08/01/22 08:15 08/01/22 08:11 08/01/22 08:10 08/01/22 08:06 35 08/01/22 08:00 08/01/22 07:45 08/01/22 07:45 08/01/22 07:30 08/01/22 07:30 08/01/22 07:15 08/01/22 07:15 08/01/22 07:00 08/01/22 07:00 08/01/22 08:01 35 08/01/22 07:00 45 08/01/22 06:40 08/01/22 06:30 08/01/22 06:20 08/01/22 06:15 08/01/22 06:15 08/01/22 06:10 08/01/22 06:00 08/01/22 06:00 08/01/22 05:30 08/01/22 05:30 08/01/22 05:00 08/01/22 04:45 08/01/22 04:45 08/01/22 04:30 08/01/22 04:00 08/01/22 04:00 08/01/22 03:30 08/01/22 03:30 08/01/22 03:15 08/01/22 03:15 08/01/22 03:00 08/01/22 03:00 08/01/22 03:00 45 Laboratory Results 08/01/22 04:47 08/01/22 04:47 PG Care Time/CCT Total # of Minutes Spent Total Time Spent with Patient: Total time spent is greater than 50% in coordination of care (as documented) at patient's floor/unit and/or counseling patient: Coding Level of Care Code 63455 SUB INP/OBS CARE 3/50MIN Diagnoses Closed intertrochanteric fracture of femur S72.143A Multiple fractures of rib involving four or more ribs S22.49XA Transaminitis R74.01 Diabetes mellitus type 2 in obese E11.69; E66.9 Hx of deep venous thrombosis Z86.718 SDAT (senile dementia of Alzheimer's type) G30.1; F02.80 Paroxysmal atrial fibrillation I48.0 Hypertension I10 Septic shock A41.9; R65.21 ARDS (adult respiratory distress syndrome) J80 Aspiration pneumonia J69.0 Acute blood loss anemia D62
[2022-08-01] MEDS: NOREPINEPHRINE/D5W 4 MG/250 ML PLCT IV SCH (16:25)
[2022-08-01] MEDS ORDERED: 0.2 MICRON FILTER SET 1 EACH IV STA (18:13)
[2022-08-01] MEDS ORDERED: STAT IV Infusion **Titration per Protocol STA (18:13)
[2022-08-01] MEDS ORDERED: AMIODARONE IV BOLUS & DRIP IV STA (18:13)
[2022-08-01] MEDS ORDERED: AMIODARONE / D5W 150 MG/100 ML BAG IV STA (18:15)
[2022-08-01] MEDS ORDERED: AMIODARONE / D5W 360 MG/200 ML BAG IV ONE (18:23)
[2022-08-01] MEDS: LACTATED RINGER'S 1,000 ML IV SCH (18:26)
[2022-08-01] MEDS: LATANOPROST 0.005% OP SOLN 2.5 ML BTL OPB SCH (22:02)
[2022-08-01] MEDS ORDERED: fentaNYL citrate PF 100 MCG/2 ML VIAL IV ONE (23:07)
[2022-08-02] MEDS: AMIODARONE / D5W 360 MG/200 ML BAG IV SCH ×2 (00:15→11:19)
[2022-08-02] MEDS: PIPERACILLIN/TAZOBACTAM 4.5 GM in DEXTROSE 5% 100 ML IV SCH ×3 (00:46→16:04)
[2022-08-02] MEDS: INSULIN ASPART PER UNIT CHARGE SC SCH ×5 (01:10→21:43)
[2022-08-02 06:21] LABS: BUN Creatinine Ratio 23.2 (10-20); Calcium 7.7 mg/dl (8.5-10.1); Creatinine Clr Calc Pharmacy 47.7 ml/min; Est GFR (African American) 61.3 ml/min; Est GFR (Non-African American) 52.9 ml/min; Hematocrit (blood only) 20.2 % (42.0-52.0); Hemoglobin 7.2 g/dl (14.0-18.0); Magnesium 1.7 mg/dl (1.7-2.4); Mean Corpuscular Hemoglobin 32.9 pg (25.0-34.0); Mean Corpuscular Hgb Conc 35.6 g/dL (32.0-36.0); Mean Corpuscular Volume 92.2 fL (80.0-100.0); Mean Platelet Volume 9.6 fL (9.4-12.4); Phosphorus 2.7 mg/dl (2.5-4.9); Platelet Count 106 K/uL (130-400); RDW Coefficient of Variation 12.7 % (11.5-14.5); RDW Standard Deviation 42.1 fL (36.4-46.3); Red Blood Count 2.19 M/uL (4.70-6.10); White Blood Count 4.25 K/ul (4.8-10.8)
[2022-08-02 06:24] LABS: Basophils # (auto) 0.02 K/uL (0-0.2); Basophils % (auto) 0.5 %; Eosinophils # (auto) 0.15 K/uL (0-0.50); Eosinophils % (auto) 3.5 %; Immature Granulocytes # (auto) 0.02 K/uL (0.01-0.20); Immature Granulocytes % (auto) 0.5 %; Lymphocytes # (auto) 0.65 K/uL (1.2-3.4); Lymphocytes % (auto) 15.3 %; Monocytes # (auto) 0.39 K/uL (0.11-0.59); Monocytes % (auto) 9.2 %; Neutrophils # (auto) 3.02 K/uL (1.40-6.50); Polychromasia 1+
[2022-08-02 06:26] LABS: INR 1.1 (0.9-1.1); Prothrombin Time 11.4 Seconds (9.0-12.0)
[2022-08-02] MEDS: LACTATED RINGER'S 1,000 ML IV SCH (06:44)
--- NOTE | 2022-08-02 07:56 | Progress Notes ---
DATE OF SERVICE: 08/02/2022. SUBJECTIVE: An 82-year-old gentleman admitted with a right intertrochanteric hip fracture along with multiple medical comorbidities. We were about to fix his hip and he went into respiratory arrest an d was intubated. He is now extubated. No new complaints. He is still having obviously the right le g pain. OBJECTIVE: VITAL SIGNS: Temperature 36.6. Vital signs look stable. PHYSICAL EXAMINATION: GENERAL: Shows an elderly male. He looks a bit edematous and just not well. He is lying in bed. EXTREMITIES: Examination of the right leg reveals to be shortened and externally rotated. Diffuse e bernard. Pain with any type of motion. He can dorsiflex and plantarflex his foot appropriately. LABORATORY DATA: Hemoglobin is 7.2. Hematocrit 20.2. ASSESSMENT: An 82-year-old gentleman with multiple medical comorbidities, admitted with right intert rochanteric hip fracture as well as multiple rib fractures with a respiratory arrest, but now extubat ed. He is a Faith. He is significantly anemic. He looks ill. PLAN: The patient needs medical optimization for sure. With him being a Faith and is no t taking blood products, we need to make sure he is medically optimized. When he is optimized, we ca n consider fixing his femur. As of now, I would recommend DVT prophylaxis, TEDs, SCDs, and certainly Lovenox or some along those lines would be reasonable. Something that we can take off and have reve rsed in 12-24 hours. He is obviously again needing to stay bedridden for now. He needs ulcer precau tions. Medical management. If he is ready for surgical treatment, please let me know at [phone] . Job ID: [id number]
[2022-08-02] MEDS: MAGNESIUM SULFATE / D5W 1 GM/100 ML BAG IV SCH ×2 (08:01→09:34)
[2022-08-02] MEDS: PANTOprazole 40 MG in SYRINGE 0 ML IV SCH ×2 (08:02→21:33)
--- NOTE | 2022-08-02 08:02 | XRay Report ---
XR chest 1V portable CLINICAL HISTORY: worsening hypoxia TECHNIQUE: Single frontal radiograph of the chest was obtained. Comparison: Comparison is made to chest radiograph 08/01/2022 FINDINGS: Left subclavian catheter is seen. Previously noted enteric and endotracheal tubes have been removed. Cardiomegaly is noted. The aortic arch is calcified. In the interval there is leftward shift of the c ardiac silhouette. There is left airspace opacity, significantly increased from prior exam. A left ef fusion cannot be excluded. IMPRESSION: 1. Interval atelectasis in the left lung with or without superimposed aspiration/pneumonia. 2. Stable cardiomegaly ACT 112: Negative or not required by law. Electronically signed by: Abner Shah M.D. 08/02/2022 8:01 AM
--- NOTE | 2022-08-02 08:24 | Critical Care Progress Note ---
Date of Service August 02, 2022 Assessment & Plan (1) Acute hypoxemic respiratory failure: (2) Septic shock: (3) ARDS (adult respiratory distress syndrome): (4) Aspiration pneumonia: (5) Acute hemorrhage: (6) Refusal of blood transfusions as patient is Rastafari: Plan 82-year-old male who presented to the hospital as a trauma now found to have acute hemorrhage, aspiration pneumonia, hypoxemic respiratory failure and septic shock Status post bronch 07/31/2022 with significant mucopurulent secretions aspirated. Oxygenation improved post bronchoscopy. Cultures pending. Continue broad- spectrum antibiotics. IVETT resolved. Bout of A-fib RVR yesterday evening which resolved with amnio bolus. Continue oral amiodarone. Speech evaluation today. He has recurrence of left lower lobe atelectasis and aspiration. We will start the patient on hypertonic saline and CoughAssist. Patient is a poor candidate for femur fixation at this time due to anemia and tenuous respiratory status. Recommend continued goals of care discussion. He is currently DNR, but okay for intubation. Unfortunately, he remains high risk for DVT and PE, but we are unable to anticoagulate him due to worsening anemia. Patient is also Rastafari and refuses blood products. His IVETT is resolving. Holding antihypertensives at this time due to lower blood pressures than his baseline. Initially presented with severe sepsis. Blood cultures from 07/31/2022 growing gram-positive cocci in clusters. Repeat blood culture results pending. Gram stain from bronchial alveolar lavage was negative. Cultures pending. Discussed with primary team that he is stable for downgrade to PCU status. Also discussed with palliative care physician who is going to revisit with the patient and family. Thank you for allowing me to participate in the care of this patient. We will continue to follow. Admission and Anticipated Discharge Date Admission Date: July 29, 2022 Subjective The patient is much more awake and alert today. He notes mild rib pain. He is anxious about having hip surgery. He remains off vasopressors. He is back in a sinus rhythm. He denies any significant shortness of breath. I wean down his high flow oxygen to 75% FiO2. He is currently on 30 L/min. Chest x-ray demonstrates recurrence of left lower lobe atelectasis. Review of Systems Review of Systems: All systems reviewed & are unremarkable except as noted in HPI & below Physical Exam Physical Exam: Constitutional: Awake and alert. No significant distress. Eyes: Pupils are equal round and reactive to light. Conjunctivae are normal. Anicteric sclera. Ears nose, mouth and throat: Mallampati 2. Neck: Trachea is midline. Visual inspection is normal. Respiratory: Rhonchi in the left lung. Cardiovascular: Regular rate and rhythm. No murmurs. No edema. Gastrointestinal: Normal bowel sounds, soft, nontender and nondistended. No hepatosplenomegaly noted. Musculoskeletal: No cyanosis. Patient is able to move all extremities. Skin: No rashes, warm dry and intact. Neurologic: No focal deficits. Psychiatric: Awake, alert and oriented x3. Mild anxiety. Results & Data Results & Data ([facility]) Vital Signs (Past 12 Hours) Vital Signs Temp Pulse Pulse Pulse Resp BP Pulse Ox 08/02/22 07:18 77 22 94 08/02/22 00:00 75 08/02/22 06:40 73 16 100 08/02/22 06:30 75 16 98 08/02/22 06:30 116/55 L 08/02/22 06:20 75 15 83 L 08/02/22 06:15 107/63 08/02/22 06:15 75 17 90 08/02/22 06:10 74 17 100 08/02/22 06:00 75 19 98 08/02/22 06:00 118/64 08/02/22 05:50 75 20 98 08/02/22 05:45 81 21 98 08/02/22 05:45 111/56 L 08/02/22 05:40 77 16 83 L 08/02/22 05:30 78 16 91 08/02/22 05:30 105/61 08/02/22 05:20 79 16 92 08/02/22 05:15 106/56 L 08/02/22 05:15 80 18 92 08/02/22 05:10 79 16 92 08/02/22 05:08 79 16 91 08/02/22 05:08 114/57 L 08/02/22 05:00 76 19 98 08/02/22 04:50 76 18 100 08/02/22 04:40 77 19 93 08/02/22 04:30 78 16 94 08/02/22 04:30 104/76 08/02/22 04:20 79 24 92 03/10/23 04:16 100/63 08/02/22 04:16 78 14 95 08/02/22 04:10 76 22 96 08/02/22 04:00 119 H 19 97 08/02/22 03:50 75 21 90 08/02/22 03:45 74 24 98 08/02/22 03:45 115/59 L 08/02/22 03:40 75 16 99 08/02/22 03:30 76 23 98 08/02/22 03:30 105/61 08/02/22 03:20 76 27 H 98 08/02/22 03:15 80 21 96 08/02/22 03:15 97/62 L 08/02/22 03:10 80 17 97 08/02/22 03:00 82 18 100 08/02/22 03:00 129/61 08/02/22 02:50 74 16 100 08/02/22 02:46 75 16 100 08/02/22 02:46 113/62 08/02/22 02:40 76 15 100 08/02/22 02:30 86 20 99 08/02/22 02:30 108/79 08/02/22 02:20 79 15 97 08/02/22 02:15 114/65 08/02/22 02:15 78 16 98 08/02/22 02:10 76 18 96 08/02/22 02:01 121/62 08/02/22 02:01 77 16 97 08/02/22 02:00 77 15 98 08/02/22 01:50 76 18 99 08/02/22 01:45 76 17 98 08/02/22 01:45 112/75 08/02/22 01:40 79 19 97 08/02/22 01:31 75 15 99 08/02/22 01:31 124/62 08/02/22 01:30 75 18 100 08/02/22 01:20 75 16 97 08/02/22 01:16 78 26 H 99 08/02/22 01:16 110/51 L 08/02/22 01:10 78 16 97 08/02/22 01:01 74 19 95 08/02/22 01:01 96/73 L 08/02/22 01:00 76 13 97 08/02/22 00:50 75 19 94 08/02/22 00:46 75 18 93 08/02/22 00:46 102/47 L 08/02/22 00:40 76 22 93 08/02/22 00:31 75 16 92 08/02/22 00:31 99/68 L 08/02/22 00:30 75 19 92 08/02/22 00:26 155/54 H 08/02/22 00:26 75 17 94 08/02/22 00:20 77 21 98 08/02/22 00:10 77 19 97 08/02/22 00:00 84 19 96 08/02/22 00:00 130/75 08/01/22 23:50 76 16 97 08/01/22 23:45 75 18 95 08/01/22 23:45 128/64 08/01/22 23:40 76 17 96 08/01/22 23:30 75 16 93 08/01/22 23:30 120/64 08/01/22 23:20 77 16 95 08/02/22 00:00 36.6 C 08/02/22 02:27 85 16 94 08/01/22 22:18 79 15 95 08/01/22 21:30 81 15 90 08/01/22 21:30 117/60 08/01/22 21:15 81 15 91 08/01/22 21:15 120/70 08/01/22 21:09 83 22 95 08/01/22 21:09 134/65 08/01/22 21:00 79 18 93 08/01/22 21:00 116/56 L 08/01/22 20:45 78 17 96 08/01/22 20:30 78 14 96 08/01/22 20:30 118/54 L 08/01/22 21:00 O2 Del Method O2 Flow Rate FiO2 08/02/22 07:18 High Flow Nasal Cannula 25 90 08/02/22 00:00 08/02/22 06:40 08/02/22 06:30 08/02/22 06:30 08/02/22 06:20 08/02/22 06:15 08/02/22 06:15 08/02/22 06:10 08/02/22 06:00 08/02/22 06:00 08/02/22 05:50 08/02/22 05:45 08/02/22 05:45 08/02/22 05:40 08/02/22 05:30 08/02/22 05:30 08/02/22 05:20 08/02/22 05:15 08/02/22 05:15 08/02/22 05:10 08/02/22 05:08 08/02/22 05:08 08/02/22 05:00 08/02/22 04:50 08/02/22 04:40 08/02/22 04:30 08/02/22 04:30 08/02/22 04:20 08/02/22 04:16 08/02/22 04:16 08/02/22 04:10 08/02/22 04:00 08/02/22 03:50 08/02/22 03:45 08/02/22 03:45 08/02/22 03:40 08/02/22 03:30 08/02/22 03:30 08/02/22 03:20 08/02/22 03:15 08/02/22 03:15 08/02/22 03:10 08/02/22 03:00 08/02/22 03:00 08/02/22 02:50 08/02/22 02:46 08/02/22 02:46 08/02/22 02:40 08/02/22 02:30 08/02/22 02:30 08/02/22 02:20 08/02/22 02:15 08/02/22 02:15 08/02/22 02:10 08/02/22 02:01 08/02/22 02:01 08/02/22 02:00 08/02/22 01:50 08/02/22 01:45 08/02/22 01:45 08/02/22 01:40 08/02/22 01:31 08/02/22 01:31 08/02/22 01:30 08/02/22 01:20 08/02/22 01:16 08/02/22 01:16 08/02/22 01:10 08/02/22 01:01 08/02/22 01:01 08/02/22 01:00 08/02/22 00:50 08/02/22 00:46 08/02/22 00:46 08/02/22 00:40 08/02/22 00:31 08/02/22 00:31 08/02/22 00:30 08/02/22 00:26 08/02/22 00:26 08/02/22 00:20 08/02/22 00:10 08/02/22 00:00 08/02/22 00:00 08/01/22 23:50 08/01/22 23:45 08/01/22 23:45 08/01/22 23:40 08/01/22 23:30 08/01/22 23:30 08/01/22 23:20 08/02/22 00:00 08/02/22 02:27 High Flow Nasal Cannula 25 100 08/01/22 22:18 High Flow Nasal Cannula 25 80 08/01/22 21:30 08/01/22 21:30 08/01/22 21:15 08/01/22 21:15 08/01/22 21:09 08/01/22 21:09 08/01/22 21:00 08/01/22 21:00 08/01/22 20:45 08/01/22 20:30 08/01/22 20:30 08/01/22 21:00 High Flow Nasal Cannula 25 76 Coding Level of Care Code 87063 SUB INP/OBS CARE 3/50MIN Diagnoses Acute hypoxemic respiratory failure J96.01 Septic shock A41.9; R65.21 ARDS (adult respiratory distress syndrome) J80 Aspiration pneumonia J69.0 Acute hemorrhage R58 Refusal of blood transfusions as patient is Rastafari Z53.1
[2022-08-02 08:44] LABS: Albumin Level 2.5 gm/dl (3.4-5.0); Bilirubin Direct 0.5 mg/dl (0-0.2); Bilirubin,Total 1.3 mg/dl (0.2-1.0)
[2022-08-02 08:50] LABS: Total Protein 4.5 gm/dl (6.0-8.3)
[2022-08-02] MEDS: ACETAMINOPHEN 1,000 MG/100 ML VIAL IV PRN (09:40)
[2022-08-02] MEDS: LORazepam 2 MG/1 ML VIAL IV PRN ×2 (11:25→21:25)
--- NOTE | 2022-08-02 12:18 | Palliative Care Progress Note ---
Date of Service August 02, 2022 Assessment & Plan (1) Pain: Plan: Continue IV tylenol as needed. Discussed concern with opioid pain medications given hypotension and respiratory failure Mildly elevated transaminases, no increase with tylenol. Monitor (2) Anxiety: Plan: Less hypotensive this morning. Add low dose lorazepam. He is perseverating about dying and very anxious after goals of care discussion. (3) Palliative care encounter: Plan: I spoke with Mr. Jones at length about concerns with his current status and poor prognosis. He has an advance directive and has said previously that he would not want to be kept alive on machines. He tells me that he would not want ET tube reinserted. He also tells me that he hopes that his dying time will be peaceful and comfortable. However, he repeatedly tells me that he does not want to and that he has things to do. We discussed that further and he tells me that he wants to continue to do yardwork and be active outside. We discussed concern that this was not likely given the extent of his illness and talked about what he would want time to be like if time was short. He told me that not being able to do those things and watching someone else do them would be worse than dying. He expressed concern about not hearing positive things and having hope. We discussed importance of having hope and honest information about what to expect. We discussed hope for quality time with his family as well as comfort and symptom control. He feels overwhelmed with decision making. I met with him later with his , son, brother in law and other family member. We reviewed earlier conversation, current status, concerns, prognosis and what to expect. Mrs. Jones discussed reintubation to help him get better. I expressed concern that he would not do well with reintubation, given his progressive anemia and inability to tolerate hip surgery. We discussed that he would likely not be able to return to his prior level of function, a condition which he did not feel was acceptable. Ultimately, family would like to continue current level of treatment with high flow O2 and pressors if needed but would not want bipap or intubation. If he declined to the point of needing reintubation or was clearly not likely to recover, they would want shift of focus to comfort and symptom management only. Admission and Anticipated Discharge Date Admission Date: July 29, 2022 Subjective More alert today. However, increased O2 requirement. Increased left airspace opacity on CXR. Hemoglobin decreased to 7.2. He continues to have pain with even minimal movement. Review of Systems Review of Systems: Pain 2/3 Dyspnea 0/3 Nausea 0/3 Anxiety 2/3 Drowsiness 1/3 Physical Exam Constitutional: + ill appearing; no acute distress ENMT: Mouth: + dry oral mucous membranes Respiratory: no labored breathing Neurologic: Speech / Cognition: normal cognition Psychiatric: Affect: + anxious affect Results & Data ([facility]) Vital Signs (Past 12 Hours) Vital Signs Temp Pulse Pulse Resp BP Pulse Ox O2 Del Method 08/02/22 11:50 90/45 L 08/02/22 11:50 71 25 H 94 High Flow Nasal Cannula 08/02/22 11:46 72 21 93 08/02/22 11:46 75/53 L 08/02/22 11:30 77 26 H 92 08/02/22 11:30 109/57 L 08/02/22 11:15 78 30 H 89 L 08/02/22 11:15 129/67 08/02/22 11:00 75 21 92 08/02/22 11:00 122/62 08/02/22 10:45 76 26 H 93 08/02/22 10:45 109/63 08/02/22 10:30 119/67 08/02/22 10:30 80 22 89 L 08/02/22 10:15 114/75 08/02/22 10:15 82 24 93 08/02/22 10:00 76 17 97 08/02/22 09:46 104/61 08/02/22 09:46 82 20 94 08/02/22 09:30 80 22 92 08/02/22 09:30 100/54 L 08/02/22 09:18 79 20 94 08/02/22 09:18 93/64 L 08/02/22 09:16 80/55 L 08/02/22 09:16 75 24 90 Oxymask 08/02/22 09:15 74 16 90 08/02/22 09:01 126/83 08/02/22 09:01 82 18 89 L 08/02/22 09:00 83 25 H 91 08/02/22 08:45 83 21 91 08/02/22 08:45 120/58 L 08/02/22 08:00 High Flow Nasal Cannula 08/02/22 08:30 90 18 82 L 08/02/22 08:30 116/65 08/02/22 08:15 83 19 90 08/02/22 08:15 121/63 08/02/22 08:01 83 18 93 08/02/22 08:01 113/63 08/02/22 08:00 81 22 89 L High Flow Nasal Cannula 08/02/22 07:45 79 19 95 08/02/22 07:45 91/45 L 08/02/22 07:30 75 21 94 08/02/22 07:30 117/60 08/02/22 07:15 78 28 H 94 08/02/22 07:15 110/55 L 08/02/22 07:00 73 18 88 L 08/02/22 07:00 114/62 08/02/22 06:45 73 20 90 08/02/22 06:45 108/58 L 08/02/22 08:43 73 08/02/22 07:18 77 22 94 High Flow Nasal Cannula 08/02/22 00:00 75 08/02/22 06:40 73 16 100 08/02/22 06:30 75 16 98 08/02/22 06:30 116/55 L 08/02/22 06:20 75 15 83 L 08/02/22 06:15 107/63 08/02/22 06:15 75 17 90 08/02/22 06:10 74 17 100 08/02/22 06:00 75 19 98 08/02/22 06:00 118/64 08/02/22 05:50 75 20 98 08/02/22 05:45 81 21 98 08/02/22 05:45 111/56 L 08/02/22 05:40 77 16 83 L 08/02/22 05:30 78 16 91 08/02/22 05:30 105/61 08/02/22 05:20 79 16 92 08/02/22 05:15 106/56 L 08/02/22 05:15 80 18 92 08/02/22 05:10 79 16 92 08/02/22 05:08 79 16 91 08/02/22 05:08 114/57 L 08/02/22 05:00 76 19 98 08/02/22 04:50 76 18 100 08/02/22 04:40 77 19 93 03/10/23 04:30 78 16 94 08/02/22 04:30 104/76 08/02/22 04:20 79 24 92 08/02/22 04:16 100/63 08/02/22 04:16 78 14 95 08/02/22 04:10 76 22 96 08/02/22 04:00 119 H 19 97 08/02/22 03:50 75 21 90 08/02/22 03:45 74 24 98 08/02/22 03:45 115/59 L 08/02/22 03:40 75 16 99 08/02/22 03:30 76 23 98 08/02/22 03:30 105/61 08/02/22 03:20 76 27 H 98 08/02/22 03:15 80 21 96 08/02/22 03:15 97/62 L 08/02/22 03:10 80 17 97 08/02/22 03:00 82 18 100 08/02/22 03:00 129/61 08/02/22 02:50 74 16 100 08/02/22 02:46 75 16 100 08/02/22 02:46 113/62 08/02/22 02:40 76 15 100 08/02/22 02:30 86 20 99 08/02/22 02:30 108/79 08/02/22 02:20 79 15 97 08/02/22 02:15 114/65 08/02/22 02:15 78 16 98 08/02/22 02:10 76 18 96 08/02/22 02:01 121/62 08/02/22 02:01 77 16 97 08/02/22 02:00 77 15 98 08/02/22 01:50 76 18 99 08/02/22 01:45 76 17 98 08/02/22 01:45 112/75 08/02/22 01:40 79 19 97 08/02/22 01:31 75 15 99 08/02/22 01:31 124/62 08/02/22 01:30 75 18 100 08/02/22 01:20 75 16 97 08/02/22 01:16 78 26 H 99 08/02/22 01:16 110/51 L 08/02/22 01:10 78 16 97 08/02/22 01:01 74 19 95 08/02/22 01:01 96/73 L 08/02/22 01:00 76 13 97 08/02/22 00:50 75 19 94 08/02/22 00:46 75 18 93 08/02/22 00:46 102/47 L 08/02/22 00:40 76 22 93 08/02/22 00:31 75 16 92 08/02/22 00:31 99/68 L 08/02/22 00:30 75 19 92 08/02/22 00:26 155/54 H 08/02/22 00:26 75 17 94 08/02/22 00:20 77 21 98 08/02/22 00:10 77 19 97 08/02/22 00:00 84 19 96 08/02/22 00:00 130/75 08/02/22 00:00 97.9 F 08/02/22 02:27 85 16 94 High Flow Nasal Cannula O2 Flow Rate FiO2 08/02/22 11:50 08/02/22 11:50 30 80 08/02/22 11:46 08/02/22 11:46 08/02/22 11:30 08/02/22 11:30 08/02/22 11:15 08/02/22 11:15 08/02/22 11:00 08/02/22 11:00 08/02/22 10:45 08/02/22 10:45 08/02/22 10:30 08/02/22 10:30 08/02/22 10:15 08/02/22 10:15 08/02/22 10:00 08/02/22 09:46 08/02/22 09:46 08/02/22 09:30 08/02/22 09:30 08/02/22 09:18 08/02/22 09:18 08/02/22 09:16 08/02/22 09:16 30 80 08/02/22 09:15 08/02/22 09:01 08/02/22 09:01 08/02/22 09:00 08/02/22 08:45 08/02/22 08:45 08/02/22 08:00 30 80 08/02/22 08:30 08/02/22 08:30 08/02/22 08:15 08/02/22 08:15 08/02/22 08:01 08/02/22 08:01 08/02/22 08:00 30 80 08/02/22 07:45 08/02/22 07:45 08/02/22 07:30 08/02/22 07:30 08/02/22 07:15 08/02/22 07:15 08/02/22 07:00 08/02/22 07:00 08/02/22 06:45 08/02/22 06:45 08/02/22 08:43 08/02/22 07:18 25 90 08/02/22 00:00 08/02/22 06:40 08/02/22 06:30 08/02/22 06:30 08/02/22 06:20 08/02/22 06:15 08/02/22 06:15 08/02/22 06:10 08/02/22 06:00 08/02/22 06:00 08/02/22 05:50 08/02/22 05:45 08/02/22 05:45 08/02/22 05:40 08/02/22 05:30 08/02/22 05:30 08/02/22 05:20 08/02/22 05:15 08/02/22 05:15 08/02/22 05:10 08/02/22 05:08 08/02/22 05:08 08/02/22 05:00 08/02/22 04:50 08/02/22 04:40 08/02/22 04:30 08/02/22 04:30 08/02/22 04:20 08/02/22 04:16 08/02/22 04:16 08/02/22 04:10 08/02/22 04:00 08/02/22 03:50 08/02/22 03:45 08/02/22 03:45 08/02/22 03:40 08/02/22 03:30 08/02/22 03:30 08/02/22 03:20 08/02/22 03:15 08/02/22 03:15 08/02/22 03:10 08/02/22 03:00 08/02/22 03:00 08/02/22 02:50 08/02/22 02:46 08/02/22 02:46 08/02/22 02:40 08/02/22 02:30 08/02/22 02:30 08/02/22 02:20 08/02/22 02:15 08/02/22 02:15 08/02/22 02:10 08/02/22 02:01 08/02/22 02:01 08/02/22 02:00 08/02/22 01:50 08/02/22 01:45 08/02/22 01:45 08/02/22 01:40 08/02/22 01:31 08/02/22 01:31 08/02/22 01:30 08/02/22 01:20 08/02/22 01:16 08/02/22 01:16 08/02/22 01:10 08/02/22 01:01 08/02/22 01:01 08/02/22 01:00 08/02/22 00:50 08/02/22 00:46 08/02/22 00:46 08/02/22 00:40 08/02/22 00:31 08/02/22 00:31 08/02/22 00:30 08/02/22 00:26 08/02/22 00:26 08/02/22 00:20 08/02/22 00:10 08/02/22 00:00 08/02/22 00:00 08/02/22 00:00 08/02/22 02:27 25 100 PG Care Time/CCT Total # of Minutes Spent Total Time Spent: 118 Total Time Spent with Patient: Total time spent is greater than 50% in coordination of care (as documented) at patient's floor/unit and/or counseling patient: [id number] goals of care, prognosis, symptom management, code status, patient and family education and support. Coding Level of Care Code 31071 SUB INP/OBS CARE 3/50MIN Diagnoses Pain R52 Anxiety F41.9 Palliative care encounter Z51.5
--- NOTE | 2022-08-02 12:31 | Hospitalist Progress Note ---
Date of Service August 02, 2022 Assessment & Plan (1) Closed intertrochanteric fracture of femur: Plan: Stabilization and pain control measures for now. Appreciate orthopedic consult and recommendations. Eventual surgical intervention if he stabilizes. (2) Multiple fractures of rib involving four or more ribs: Plan: Acute, RIGHT ribs 3-7. From fall at home. Pain control measures. Incentive spirometry if able (3) Transaminitis: Plan: Multifactorial. No intervention necessary at this time. Serial labs (4) Diabetes mellitus type 2 in obese: Plan: Last a1c 6.1. Holding home metformin. 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 Managed with Warfarin, supratherapeutic INR of 3.4 on admission. Now reversed with vitamin K. (6) SDAT (senile dementia of Alzheimer's type): Plan: Memantine 5mg BID . Supportive care (7) Paroxysmal atrial fibrillation: Plan: Now on amiodarone drip. Cardiology consultation requested. Coumadin has been reversed. Telemetry. Echo report noted (8) Hypertension: Plan: Controlled with lisinopril, coreg, amlodipine. Hold meds as needed (9) Septic shock: Plan: Pressor support as needed. IV fluids as needed. Blood cultures negative to date (10) ARDS (adult respiratory distress syndrome): Plan: Suspected per critical care entry. Serial chest x-ray. Supportive care (11) Aspiration pneumonia: Plan: N.p.o. currently. We will ask speech therapy to evaluate. Intravenous Zosyn therapy. Serial chest x-ray (12) Acute blood loss anemia: Plan: Orthodox status precludes any blood transfusion. Hemoglobin down to 7.2. We will follow (13) Acute kidney injury: Plan: Creatinine has improved from 1.8 down to 1.2. We will monitor intake and output. Serial labs Plan To be determined Admission and Anticipated Discharge Date Admission Date: July 29, 2022 Subjective The patient is awake in no acute distress. Multiple family members are in attendance. They had a lengthy meeting with palliative care today. Cardiology consulted for recurrent AF/RVR. He is now on amiodarone gtt. Echo report noted. Review of Systems Review of Systems: Constitutional-no fever or chills ENT-no blurred vision, no double vision, no epistaxis, no sore throat Respiratory-right lateral chest wall pain with deep inspiration due to underlying rib fractures. Nonproductive cough, no wheezing, no shortness of breath Cardiac-no palpitations, no chest pain, no syncope GI-no nausea, vomiting, diarrhea, melena, hematochezia -no urinary retention, no urinary incontinence, no dysuria, no hematuria Musculoskeletal-multiple right lateral rib fractures and associated pain, right hip fracture and associated pain Skin-no bruising, no rashes, no pruritus Neuro-generalized weakness and advanced age debility Psych-no depression, no anxiety Physical Exam Physical Exam: General-awake and oriented. No fevers, no chills HEENT-head atraumatic and normocephalic, pupils equal and reactive to light, extraocular muscles intact Neck-no lymphadenopathy or thyromegaly, trachea midline Chest-shallow respirations. Scattered bilateral rhonchi. No wheezing Cardiac-irregular rhythm. Controlled rate. Normal S1 and S2 Abdomen-normal bowel sounds, nontender, no hepatosplenomegaly Extremities-right leg is slightly shortened from right hip fracture . Associated limited range of motion right hip Neuro-cranial nerves II through XII intact, motor and sensory function within normal limits, strength symmetrical but generalized weakness, no focal deficits Psych- depressed affect Results & Data Results & Data ([facility]) Vital Signs (Past 12 Hours) Vital Signs Pulse Pulse Pulse Resp BP Pulse Ox O2 Del Method 08/02/22 12:00 70 24 96 High Flow Nasal Cannula 08/02/22 11:50 90/45 L 08/02/22 11:50 71 25 H 94 High Flow Nasal Cannula 08/02/22 11:46 72 21 93 08/02/22 11:46 75/53 L 08/02/22 11:30 77 26 H 92 08/02/22 11:30 109/57 L 08/02/22 11:15 78 30 H 89 L 08/02/22 11:15 129/67 08/02/22 11:00 75 21 92 08/02/22 11:00 122/62 08/02/22 10:45 76 26 H 93 08/02/22 10:45 109/63 08/02/22 10:30 119/67 08/02/22 10:30 80 22 89 L 08/02/22 10:15 114/75 03/10/23 10:15 82 24 93 08/02/22 10:00 76 17 97 08/02/22 09:46 104/61 08/02/22 09:46 82 20 94 08/02/22 09:30 80 22 92 08/02/22 09:30 100/54 L 08/02/22 09:18 79 20 94 08/02/22 09:18 93/64 L 08/02/22 09:16 80/55 L 08/02/22 09:16 75 24 90 Oxymask 08/02/22 09:15 74 16 90 08/02/22 09:01 126/83 08/02/22 09:01 82 18 89 L 08/02/22 09:00 83 25 H 91 08/02/22 08:45 83 21 91 08/02/22 08:45 120/58 L 08/02/22 08:00 High Flow Nasal Cannula 08/02/22 08:30 90 18 82 L 08/02/22 08:30 116/65 08/02/22 08:15 83 19 90 08/02/22 08:15 121/63 08/02/22 08:01 83 18 93 08/02/22 08:01 113/63 08/02/22 08:00 81 22 89 L High Flow Nasal Cannula 08/02/22 07:45 79 19 95 08/02/22 07:45 91/45 L 08/02/22 07:30 75 21 94 08/02/22 07:30 117/60 08/02/22 07:15 78 28 H 94 08/02/22 07:15 110/55 L 08/02/22 07:00 73 18 88 L 08/02/22 07:00 114/62 08/02/22 06:45 73 20 90 08/02/22 06:45 108/58 L 08/02/22 08:43 73 08/02/22 07:18 77 22 94 High Flow Nasal Cannula 08/02/22 06:40 73 16 100 08/02/22 06:30 75 16 98 08/02/22 06:30 116/55 L 08/02/22 06:20 75 15 83 L 08/02/22 06:15 107/63 08/02/22 06:15 75 17 90 08/02/22 06:10 74 17 100 08/02/22 06:00 75 19 98 08/02/22 06:00 118/64 08/02/22 05:50 75 20 98 08/02/22 05:45 81 21 98 08/02/22 05:45 111/56 L 08/02/22 05:40 77 16 83 L 08/02/22 05:30 78 16 91 08/02/22 05:30 105/61 08/02/22 05:20 79 16 92 08/02/22 05:15 106/56 L 08/02/22 05:15 80 18 92 08/02/22 05:10 79 16 92 08/02/22 05:08 79 16 91 08/02/22 05:08 114/57 L 08/02/22 05:00 76 19 98 08/02/22 04:50 76 18 100 08/02/22 04:40 77 19 93 08/02/22 04:30 78 16 94 08/02/22 04:30 104/76 08/02/22 04:20 79 24 92 08/02/22 04:16 100/63 08/02/22 04:16 78 14 95 08/02/22 04:10 76 22 96 08/02/22 04:00 119 H 19 97 08/02/22 03:50 75 21 90 08/02/22 03:45 74 24 98 08/02/22 03:45 115/59 L 08/02/22 03:40 75 16 99 08/02/22 03:30 76 23 98 08/02/22 03:30 105/61 08/02/22 03:20 76 27 H 98 08/02/22 03:15 80 21 96 08/02/22 03:15 97/62 L 08/02/22 03:10 80 17 97 08/02/22 03:00 82 18 100 08/02/22 03:00 129/61 08/02/22 02:50 74 16 100 08/02/22 02:46 75 16 100 08/02/22 02:46 113/62 08/02/22 02:40 76 15 100 08/02/22 02:30 86 20 99 08/02/22 02:30 108/79 08/02/22 02:20 79 15 97 08/02/22 02:15 114/65 08/02/22 02:15 78 16 98 08/02/22 02:10 76 18 96 08/02/22 02:01 121/62 08/02/22 02:01 77 16 97 08/02/22 02:00 77 15 98 08/02/22 01:50 76 18 99 08/02/22 01:45 76 17 98 08/02/22 01:45 112/75 08/02/22 01:40 79 19 97 08/02/22 01:31 75 15 99 08/02/22 01:31 124/62 08/02/22 01:30 75 18 100 08/02/22 01:20 75 16 97 08/02/22 01:16 78 26 H 99 08/02/22 01:16 110/51 L 08/02/22 01:10 78 16 97 08/02/22 01:01 74 19 95 08/02/22 01:01 96/73 L 08/02/22 01:00 76 13 97 08/02/22 00:50 75 19 94 08/02/22 00:46 75 18 93 08/02/22 00:46 102/47 L 08/02/22 00:40 76 22 93 08/02/22 00:31 75 16 92 08/02/22 00:31 99/68 L 08/02/22 00:30 75 19 92 08/02/22 02:27 85 16 94 High Flow Nasal Cannula O2 Flow Rate FiO2 08/02/22 12:00 30 85 08/02/22 11:50 08/02/22 11:50 30 80 08/02/22 11:46 08/02/22 11:46 08/02/22 11:30 08/02/22 11:30 08/02/22 11:15 08/02/22 11:15 08/02/22 11:00 08/02/22 11:00 08/02/22 10:45 08/02/22 10:45 08/02/22 10:30 08/02/22 10:30 08/02/22 10:15 08/02/22 10:15 08/02/22 10:00 08/02/22 09:46 08/02/22 09:46 08/02/22 09:30 08/02/22 09:30 08/02/22 09:18 08/02/22 09:18 08/02/22 09:16 08/02/22 09:16 30 80 08/02/22 09:15 08/02/22 09:01 08/02/22 09:01 08/02/22 09:00 08/02/22 08:45 08/02/22 08:45 08/02/22 08:00 30 80 08/02/22 08:30 08/02/22 08:30 08/02/22 08:15 08/02/22 08:15 08/02/22 08:01 08/02/22 08:01 08/02/22 08:00 30 80 08/02/22 07:45 08/02/22 07:45 08/02/22 07:30 08/02/22 07:30 08/02/22 07:15 08/02/22 07:15 08/02/22 07:00 08/02/22 07:00 08/02/22 06:45 08/02/22 06:45 08/02/22 08:43 08/02/22 07:18 25 90 08/02/22 06:40 08/02/22 06:30 08/02/22 06:30 08/02/22 06:20 08/02/22 06:15 08/02/22 06:15 08/02/22 06:10 08/02/22 06:00 08/02/22 06:00 08/02/22 05:50 08/02/22 05:45 08/02/22 05:45 08/02/22 05:40 08/02/22 05:30 08/02/22 05:30 08/02/22 05:20 08/02/22 05:15 08/02/22 05:15 08/02/22 05:10 08/02/22 05:08 08/02/22 05:08 08/02/22 05:00 08/02/22 04:50 08/02/22 04:40 08/02/22 04:30 08/02/22 04:30 08/02/22 04:20 08/02/22 04:16 08/02/22 04:16 08/02/22 04:10 08/02/22 04:00 08/02/22 03:50 08/02/22 03:45 08/02/22 03:45 08/02/22 03:40 08/02/22 03:30 08/02/22 03:30 08/02/22 03:20 08/02/22 03:15 08/02/22 03:15 08/02/22 03:10 08/02/22 03:00 08/02/22 03:00 08/02/22 02:50 08/02/22 02:46 08/02/22 02:46 08/02/22 02:40 08/02/22 02:30 08/02/22 02:30 08/02/22 02:20 08/02/22 02:15 08/02/22 02:15 08/02/22 02:10 08/02/22 02:01 08/02/22 02:01 08/02/22 02:00 08/02/22 01:50 08/02/22 01:45 08/02/22 01:45 08/02/22 01:40 08/02/22 01:31 08/02/22 01:31 08/02/22 01:30 08/02/22 01:20 08/02/22 01:16 08/02/22 01:16 08/02/22 01:10 08/02/22 01:01 08/02/22 01:01 08/02/22 01:00 08/02/22 00:50 08/02/22 00:46 08/02/22 00:46 08/02/22 00:40 08/02/22 00:31 08/02/22 00:31 08/02/22 00:30 08/02/22 02:27 25 100 Laboratory Results 08/02/22 05:49 08/02/22 05:49 PG Care Time/CCT Total # of Minutes Spent Total Time Spent with Patient: Total time spent is greater than 50% in coordination of care (as documented) at patient's floor/unit and/or counseling patient: Coding Level of Care Code 37145 SUB INP/OBS CARE 3/50MIN Diagnoses Closed intertrochanteric fracture of femur S72.143A Multiple fractures of rib involving four or more ribs S22.49XA Transaminitis R74.01 Diabetes mellitus type 2 in obese E11.69; E66.9 Hx of deep venous thrombosis Z86.718 SDAT (senile dementia of Alzheimer's type) G30.1; F02.80 Paroxysmal atrial fibrillation I48.0 Hypertension I10 Septic shock A41.9; R65.21 ARDS (adult respiratory distress syndrome) J80 Aspiration pneumonia J69.0 Acute blood loss anemia D62 Acute kidney injury N17.9
[2022-08-02] MEDS: AMIODARONE 200 MG TAB PO SCH (13:24)
[2022-08-02] MEDS: MEMANTINE HCL 5 MG TAB PO SCH (13:39)
--- NOTE | 2022-08-02 16:13 | Cardiology Consultation ---
Date of Consultation August 02, 2022 Assessment & Plan (1) Atrial fibrillation: (2) Chronic anticoagulation: (3) Aortic stenosis, mild: (4) Mitral regurgitation: Plan 1. Atrial fibrillation: He has a long history of atrial fibrillation which has been relatively well controlled on amiodarone. He had brief episodes during this hospitalization however the rate is only slightly elevated and he seems asymptomatic. He was started on intravenous amiodarone, that may have helped or the atrial fibrillation may have been exacerbated by his acute illness. At this point I would continue his outpatient amiodarone, he is tolerating oral intake now and I would switch to oral amiodarone 200 mg daily. I am not sure if he was reduced to 100 mg daily as an outpatient or not, if so I would go up to 200 mg daily. 2. Anticoagulation: Ideally he would be anticoagulated for the atrial fibrillation on a long-term basis, however over the short-term but is probably not essential since he had only brief episodes. He does have other reasons for anticoagulation however. 3. Aortic stenosis: This is only mild and not of current concern. 4. Mitral regurgitation: He does have some degree of mitral regurgitation however it does not warrant further evaluation at this time. History of Present Illness Reason for Consultation: Atrial fibrillation Attending Physician: Fracisco Pizarro MD History of Present Illness This is an 82-year-old male who is followed by Dr. Tan in our office. He has a history of hypertension, diabetes mellitus, hyperlipidemia as well as paroxysmal atrial fibrillation and a prior history of DVT as well as Antithrombin III deficiency. He is therefore on long-term anticoagulation. His atrial fibrillation was identified in June 2018 when he presented to [facility] in atrial fibrillation with a rapid heart rate. He had normal left ventricular function and he underwent cardioversion on June 29, 2018. He had been anticoagulated with warfarin. He had recurrent atrial fibrillation in September 2018 and felt poorly despite rate control therefore he was started on amiodarone and he had cardioversion December 14, 2018. He had recurrence in December 2018 with repeat cardioversion December 28, 2018. In May 2021 he had recurrence with a heart rate of 120 bpm and associated symptoms of palpitations, fatigue and intermittent presyncope. He had cardioversion June 22, 2021 and amiodarone was increased from 100 to 200 mg daily. I believe he has been maintaining sinus rhythm for the most part since. 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 His chart indicates that he has been on amiodarone 200 mg daily, his tells me it was decreased to 100 mg daily several months ago. He presented to the emergency room on July 29, 2022 with a fall, this is described as a mechanical fall which resulted in a right hip fracture and right rib fractures. Surgery was considered, however he developed acute hypoxic respiratory failure with septic shock, possibly from aspiration pneumonia. He was intubated for several days and had acute kidney injury and positive blood cultures. He also had brief episodes of atrial fibrillation on August 01, 2022 and was started on intravenous amiodarone. An echocardiogram August 01, 2022 shows normal left ventricular size and function with moderate left ventricular hypertrophy. He has mild aortic stenosis and moderate mitral regurgitation. Today he is resting in bed, he is awake and alert and recently extubated. He denies symptoms of palpitations here in the hospital and his , who is at his bedside, does not feel he has had symptoms of atrial fibrillation recently. From the cardiovascular standpoint he has been doing well. Allergies Allergy/AdvReac Type Severity Reaction Status Date / Time meperidine AdvReac Intermediate OVER-SEDATION, Verified 07/29/22 19:58 N/V W/ SYNCOPE sertraline [From Zoloft] AdvReac Intermediate Dizziness Verified 07/29/22 19:58 Home Medications Medication Instructions Recorded Confirmed Type latanoprost 0.005 % eye drops 1 drp OPB HS 06/28/18 07/29/22 History mecobalamin (vitamin B12) 1,000 1,000 mcg PO QAM 03/21/20 07/29/22 History mcg chewable tablet leuprolide acetate (6 month) 45 mg 45 mg IM Q24W #1 ea 04/25/20 07/29/22 Rx intramuscular syringe kit (Lupron Depot) warfarin 3 mg tablet 4.5 mg PO WK 06/18/21 07/29/22 History blood sugar diagnostic #100 ea 02/25/22 06/28/22 Rx carvedilol 6.25 mg tablet 6.25 mg PO BID #180 tabs 03/01/22 07/29/22 Rx amiodarone 200 mg tablet 200 mg PO QAM #90 tabs 03/18/22 07/29/22 Rx metformin 500 mg tablet 500 mg PO BID #180 tabs 04/08/22 07/29/22 Rx amlodipine 2.5 mg tablet 2.5 mg PO DAILY #90 tabs 06/28/22 07/29/22 Rx atorvastatin 40 mg tablet 40 mg PO HS #90 tabs 07/17/22 07/29/22 Rx lisinopril 10 mg tablet 10 mg PO QAM 07/29/22 07/29/22 History polyethylene glycol 3350 17 gram 17 g PO BID PRN Constipation 07/29/22 07/29/22 History oral powder packet (Miralax) warfarin 3 mg tablet 3 mg PO [id number] 07/29/22 07/29/22 History Patient History Medical History Acute hemorrhage Acute hypoxemic respiratory failure Acute spont intraparenchymal hemorrhage assoc w/ hypertension Antithrombin III deficiency FOLLOWS PCP > DR. TAN/LOC - ON COUMADIN ARDS (adult respiratory distress syndrome) Aspiration pneumonia Blurred vision, bilateral Cataract RT/LEFT Chest pain Constipation Diabetes mellitus type 2 in obese Dizziness Forgetfulness "RELATED TO AGE" Glaucoma LEFT EYE History of adenomatous polyp of colon History of atrial fibrillation History of hemorrhagic stroke with residual hemiparesis History of prostate cancer History of skin cancer MELANOMA AND BASAL CELL Hx of deep venous thrombosis SEVERAL YEARS AGO, REASON FOR COUMADIN Hx pulmonary embolism WITH DVT ? YEAR "A FEW YEARS AGO" Hyperlipidemia Hypertension Hypertensive heart disease preserved LV function Hypertensive urgency Obstructive sleep apnea no device used (could not tolerate) Osteoarthritis Prostate cancer Refusal of blood transfusions as patient is Alevism Septic shock Thoracic ascending aortic aneurysm UNSURE ABOUT DX Surgical History History of cardioversion (11/2018) X 4--last 06/22/21 @ [facility] History of colonoscopy History of local excision of skin lesion MULTIPLE REMOVAL History of nasal septoplasty multiple-with Celon turbinate reduction History of tooth extraction Hx of colonoscopy Hx of prostate biopsy Family History Mother Venous embolism and thrombosis of deep vessels of lower extremity Cancer Father Stroke syndrome Other No family history of adverse response to anesthesia No family history of bleeding disorder No pertinent family history Denies family history of Ovarian cancer Prostate cancer Coronary heart disease Alzheimer disease Bipolar disorder Breast cancer COPD (chronic obstructive pulmonary disease) Colorectal cancer Asthma Social History Smoking Status: Never smoker Second Hand Exposure: Yes; Do You Dip or Chew Tobacco: No; Hx Alcohol Use: No Hx Substance Use: No Preferred Language: Bahamian Communication Ability: Effective Visual Impairment: No Limitations Hearing Ability: Normal Patrol Officer Required: No Beliefs That Will Affect Care: Hinduism Hinduism Beliefs: Pt is Jehova's witness will not use blood products marital status: Current Living Situation: Spouse current occupational status: retired current occupation: Worked at [email or web address] How many Children do You have: 2 Other Information That Helps Us Care for You: No Feels Safe at Home: Yes Safety Concerns: Feels Safe At This Time Childhood Exposure to Second-Hand Smoke: No caffeine: No during the past year weight has: remained stable Dental Care, Regularly: Yes Physical Activity Frequency: Does not Exercise Seatbelt Use: always Sunscreen Use: No Assistive Devices: Cane and Walker Review of Systems Review of Systems: All systems reviewed & are unremarkable except as noted in HPI & below Physical Exam Physical Exam: Constitutional: Alert, cooperative and in no distress. Resting in bed. HEENT: Unremarkable Neck: No jugular venous distention, carotid pulses are normal and equal bilaterally without bruits. Pulmonary: Scattered rhonchi on auscultation bilaterally. Cardiac: Irregular rhythm with a grade 2/6 holosystolic murmur at the apex, no gallop or rub. Abdomen: Soft, nontender with normal bowel sounds. Extremities: No edema. Right leg rotation. Neurologic: No focal findings. Skin: No rash, ecchymoses or petechiae. Results & Data ([facility]) Vital Signs (Past 12 Hours) Vital Signs Pulse Pulse Pulse Resp BP Pulse Ox O2 Del Method 08/02/22 12:00 70 24 96 High Flow Nasal Cannula 08/02/22 11:50 90/45 L 08/02/22 11:50 71 25 H 94 High Flow Nasal Cannula 08/02/22 11:46 72 21 93 08/02/22 11:46 75/53 L 08/02/22 11:30 77 26 H 92 08/02/22 11:30 109/57 L 08/02/22 11:15 78 30 H 89 L 08/02/22 11:15 129/67 08/02/22 11:00 75 21 92 08/02/22 11:00 122/62 08/02/22 10:45 76 26 H 93 08/02/22 10:45 109/63 08/02/22 10:30 119/67 08/02/22 10:30 80 22 89 L 08/02/22 10:15 114/75 08/02/22 10:15 82 24 93 08/02/22 10:00 76 17 97 08/02/22 09:46 104/61 08/02/22 09:46 82 20 94 08/02/22 09:30 80 22 92 08/02/22 09:30 100/54 L 08/02/22 09:18 79 20 94 08/02/22 09:18 93/64 L 08/02/22 09:16 80/55 L 08/02/22 09:16 75 24 90 Oxymask 08/02/22 09:15 74 16 90 08/02/22 09:01 126/83 08/02/22 09:01 82 18 89 L 08/02/22 09:00 83 25 H 91 08/02/22 08:45 83 21 91 08/02/22 08:45 120/58 L 08/02/22 08:00 High Flow Nasal Cannula 08/02/22 08:30 90 18 82 L 08/02/22 08:30 116/65 08/02/22 08:15 83 19 90 08/02/22 08:15 121/63 08/02/22 08:01 83 18 93 08/02/22 08:01 113/63 08/02/22 08:00 81 22 89 L High Flow Nasal Cannula 08/02/22 07:45 79 19 95 08/02/22 07:45 91/45 L 08/02/22 07:30 75 21 94 08/02/22 07:30 117/60 08/02/22 07:15 78 28 H 94 08/02/22 07:15 110/55 L 08/02/22 07:00 73 18 88 L 08/02/22 07:00 114/62 08/02/22 06:45 73 20 90 08/02/22 06:45 108/58 L 08/02/22 08:43 73 08/02/22 07:18 77 22 94 High Flow Nasal Cannula 08/02/22 06:40 73 16 100 08/02/22 06:30 75 16 98 08/02/22 06:30 116/55 L 08/02/22 06:20 75 15 83 L 08/02/22 06:15 107/63 08/02/22 06:15 75 17 90 08/02/22 06:10 74 17 100 08/02/22 06:00 75 19 98 08/02/22 06:00 118/64 08/02/22 05:50 75 20 98 08/02/22 05:45 81 21 98 08/02/22 05:45 111/56 L 08/02/22 05:40 77 16 83 L 08/02/22 05:30 78 16 91 08/02/22 05:30 105/61 08/02/22 05:20 79 16 92 08/02/22 05:15 106/56 L 08/02/22 05:15 80 18 92 08/02/22 05:10 79 16 92 08/02/22 05:08 79 16 91 08/02/22 05:08 114/57 L 08/02/22 05:00 76 19 98 08/02/22 04:50 76 18 100 08/02/22 04:40 77 19 93 08/02/22 04:30 78 16 94 08/02/22 04:30 104/76 08/02/22 04:20 79 24 92 08/02/22 04:16 100/63 08/02/22 04:16 78 14 95 08/02/22 04:10 76 22 96 08/02/22 04:00 119 H 19 97 08/02/22 03:50 75 21 90 08/02/22 03:45 74 24 98 08/02/22 03:45 115/59 L 08/02/22 03:40 75 16 99 08/02/22 03:30 76 23 98 08/02/22 03:30 105/61 08/02/22 03:20 76 27 H 98 08/02/22 03:15 80 21 96 08/02/22 03:15 97/62 L 08/02/22 03:10 80 17 97 08/02/22 03:00 82 18 100 08/02/22 03:00 129/61 08/02/22 02:50 74 16 100 08/02/22 02:46 75 16 100 08/02/22 02:46 113/62 08/02/22 02:40 76 15 100 O2 Flow Rate FiO2 08/02/22 12:00 30 85 08/02/22 11:50 08/02/22 11:50 30 80 08/02/22 11:46 08/02/22 11:46 08/02/22 11:30 08/02/22 11:30 08/02/22 11:15 08/02/22 11:15 08/02/22 11:00 08/02/22 11:00 08/02/22 10:45 08/02/22 10:45 08/02/22 10:30 08/02/22 10:30 08/02/22 10:15 08/02/22 10:15 08/02/22 10:00 08/02/22 09:46 08/02/22 09:46 08/02/22 09:30 08/02/22 09:30 08/02/22 09:18 08/02/22 09:18 08/02/22 09:16 08/02/22 09:16 30 80 08/02/22 09:15 08/02/22 09:01 08/02/22 09:01 08/02/22 09:00 08/02/22 08:45 08/02/22 08:45 08/02/22 08:00 30 80 08/02/22 08:30 08/02/22 08:30 08/02/22 08:15 08/02/22 08:15 08/02/22 08:01 08/02/22 08:01 08/02/22 08:00 30 80 08/02/22 07:45 08/02/22 07:45 08/02/22 07:30 08/02/22 07:30 08/02/22 07:15 08/02/22 07:15 08/02/22 07:00 08/02/22 07:00 08/02/22 06:45 08/02/22 06:45 08/02/22 08:43 08/02/22 07:18 25 90 08/02/22 06:40 08/02/22 06:30 08/02/22 06:30 08/02/22 06:20 08/02/22 06:15 08/02/22 06:15 08/02/22 06:10 08/02/22 06:00 08/02/22 06:00 08/02/22 05:50 08/02/22 05:45 08/02/22 05:45 08/02/22 05:40 08/02/22 05:30 08/02/22 05:30 08/02/22 05:20 08/02/22 05:15 08/02/22 05:15 08/02/22 05:10 08/02/22 05:08 08/02/22 05:08 08/02/22 05:00 08/02/22 04:50 08/02/22 04:40 08/02/22 04:30 08/02/22 04:30 08/02/22 04:20 08/02/22 04:16 08/02/22 04:16 08/02/22 04:10 08/02/22 04:00 08/02/22 03:50 08/02/22 03:45 08/02/22 03:45 08/02/22 03:40 08/02/22 03:30 08/02/22 03:30 08/02/22 03:20 08/02/22 03:15 08/02/22 03:15 08/02/22 03:10 08/02/22 03:00 08/02/22 03:00 08/02/22 02:50 08/02/22 02:46 08/02/22 02:46 08/02/22 02:40 Laboratory Results Cardiac Enzymes 08/02/22 Range/Units 05:49 AST 64 H (13-39) U/L Coagulation 08/02/22 Range/Units 05:49 PT 11.4 (9.0-12.0) Seconds CBC 08/02/22 Range/Units 05:49 WBC 4.25 L (4.8-10.8) K/ul RBC 2.19 L (4.70-6.10) M/uL Hgb 7.2 L (14.0-18.0) g/dl Hct 20.2 L* (42.0-52.0) % Plt Count 106 L (130-400) K/uL Neut # (Auto) 3.02 (1.40-6.50) K/uL Lymph # (Auto) 0.65 L (1.2-3.4) K/uL Ness # (Auto) 0.39 (0.11-0.59) K/uL Eos # (Auto) 0.15 (0-0.50) K/uL Baso # (Auto) 0.02 (0-0.2) K/uL Comprehensive Metabolic Panel 08/02/22 08/02/22 Range/Units 05:49 05:49 Sodium 134 L (136-145) mmol/L Potassium 4.0 (3.5-5.1) mmol/L Chloride 102 (98-107) mmol/L Carbon Dioxide 30 (21-32) mmol/L BUN 29 H (6-23) mg/dl Creatinine 1.25 D (0.6-1.4) mg/dl Glucose 126 H (70-99(Fasting)) mg/dl Calcium 7.7 L (8.5-10.1) mg/dl Direct Bilirubin 0.5 H (0-0.2) mg/dl AST 64 H (13-39) U/L ALT 68 H (7-52) U/L Alkaline Phosphatase 102 (34-104) U/L Total Protein 4.5 L (6.0-8.3) gm/dl Albumin 2.5 L (3.4-5.0) gm/dl Intake and Output 08/02/22 08/02/22 08/02/22 06:59 14:59 22:59 Intake Total 1334.67 / 3866.148 0818.544 / 1058.544 Output Total 950 / 2400 300 / 300 Balance 384.67 / -447.985 758.544 / 758.544 Intake: IV 1334.67 / 5669.638 8905.544 / 1058.544 Acetaminophen 1,000 mg In 100 100 / 100 ml @ 400 mls/hr IV Q8H PRN Rx#: [id number] Amiodarone / D5w 150 mg In 100 100 / 100 ml @ 600 mls/hr IV NOW STA Rx#: [id number] Amiodarone / D5w 360 mg In 200 419.605 / 419.605 ml @ 0.5 MG/MIN 16.667 mls/hr IV .Q12H AILEEN Rx#:[id number] Lactated Ringer's 1,000 ml @ 80 984 / 984 162.667 / 162.667 mls/hr IV .[id number] AILEEN Rx#: [id number] Magnesium Sulfate / D5w 1 gm In 177.5 / 177.5 100 ml @ 50 mls/hr IV Q2H AILEEN Rx#:[id number] Norepinephrine/D5w 4 mg In 250 130.67 / 318.165 78.772 / 78.772 ml @ 0.05 MCG/KG/MIN 15.675 mls /hr IV .[id number] IALEEN Rx#: [id number] Piperacillin/Tazobactam 4.5 gm 120 / 360 120 / 120 In Dextrose 5% 100 ml @ 30 mls/ hr IV Q8H AILEEN Rx#:[id number] Output: Urine Amount (Catheter) 950 / 2400 300 / 300 Peña/Indwelling 950 / 2400 300 / 300 Other: Weight 83.6 kg Patient Weight 08/03/22 06:59 Weight 83.6 kg Diagnostic Findings Telemetry: For the most part sinus rhythm, over the last 48 hours infrequent brief episodes of atrial fibrillation at a slightly increased heart rate. PG Care Time/CCT Total # of Minutes Spent Total Time Spent with Patient: Total time spent is greater than 50% in coordination of care (as documented) at patient's floor/unit and/or counseling patient: Coding Level of Care Code 87805 INT INP/OBS CARE 3/75MIN Diagnoses Atrial fibrillation I48.2 Atrial fibrillation type: chronic Chronic anticoagulation Z79.01 Aortic stenosis, mild I35.0 Mitral regurgitation I34.0 Cardiac valve disease etiology: etiology unspecified (1) Atrial fibrillation Atrial fibrillation type: chronic Qualified Code(s): I48.2 - Chronic atrial fibrillation (4) Mitral regurgitation Cardiac valve disease etiology: etiology unspecified Qualified Code(s): I34.0 - Nonrheumatic mitral (valve) insufficiency
[2022-08-02] MEDS ORDERED: Nursing to Pharmacy Communication SCH (17:45)
[2022-08-02] MEDS: SODIUM CHLOR 7% 4 ML NEB NEB SCH (20:19)
[2022-08-02] MEDS: LATANOPROST 0.005% OP SOLN 2.5 ML BTL OPB SCH (21:34)
[2022-08-02] MEDS: carvediloL 6.25 MG TAB PO SCH (23:22)
[2022-08-03] MEDS: PIPERACILLIN/TAZOBACTAM 4.5 GM in DEXTROSE 5% 100 ML IV SCH ×3 (01:22→17:00)
[2022-08-03] MEDS ORDERED: SODIUM CHLORIDE 0.9% 10ML FLUSH IV ONE (06:57)
[2022-08-03 07:20] LABS: Hematocrit (blood only) 19.5 % (42.0-52.0); Hemoglobin 6.9 g/dl (14.0-18.0); Mean Corpuscular Hemoglobin 32.7 pg (25.0-34.0); Mean Corpuscular Hgb Conc 35.4 g/dL (32.0-36.0); Mean Corpuscular Volume 92.4 fL (80.0-100.0); Mean Platelet Volume 9.7 fL (9.4-12.4); Platelet Count 122 K/uL (130-400); RDW Coefficient of Variation 12.6 % (11.5-14.5); RDW Standard Deviation 42.4 fL (36.4-46.3); Red Blood Count 2.11 M/uL (4.70-6.10); White Blood Count 4.56 K/ul (4.8-10.8)
[2022-08-03] MEDS: AMIODARONE / D5W 360 MG/200 ML BAG IV SCH (07:20)
[2022-08-03 07:24] LABS: Calcium 7.4 mg/dl (8.5-10.1); Creatinine Clr Calc Pharmacy 64.5 ml/min; Est GFR (African American) 80.3 ml/min; Est GFR (Non-African American) 69.3 ml/min; Magnesium 1.7 mg/dl (1.7-2.4); Phosphorus 2.8 mg/dl (2.5-4.9); Potassium 3.8 mmol/L (3.5-5.1)
[2022-08-03] MEDS: SODIUM CHLOR 7% 4 ML NEB NEB SCH ×2 (07:42→19:01)
[2022-08-03 08:05] LABS: Basophils # (auto) 0.02 K/uL (0-0.2); Basophils % (auto) 0.4 %; Eosinophils # (auto) 0.09 K/uL (0-0.50); Immature Granulocytes # (auto) 0.03 K/uL (0.01-0.20); Immature Granulocytes % (auto) 0.7 %; Lymphocytes # (auto) 0.64 K/uL (1.2-3.4); Monocytes # (auto) 0.46 K/uL (0.11-0.59); Monocytes % (auto) 10.1 %; Neutrophils # (auto) 3.32 K/uL (1.40-6.50); Neutrophils % (auto) 72.8 %; Polychromasia 1+
[2022-08-03] MEDS: INSULIN ASPART PER UNIT CHARGE SC SCH ×4 (08:23→22:28)
[2022-08-03] MEDS: PANTOprazole 40 MG in SYRINGE 0 ML IV SCH (08:24)
[2022-08-03] MEDS: carvediloL 6.25 MG TAB PO SCH ×2 (09:13→22:41)
--- NOTE | 2022-08-03 12:03 | Hospitalist Progress Note ---
Date of Service August 03, 2022 Assessment & Plan (1) Closed intertrochanteric fracture of femur: Plan: Stabilization and pain control measures for now. Appreciate orthopedic consult and recommendations. Eventual surgical intervention if he stabilizes. (2) Multiple fractures of rib involving four or more ribs: Plan: Acute, RIGHT ribs 3-7. From fall at home. Pain control measures. Incentive spirometry (3) Transaminitis: Plan: Multifactorial. No intervention necessary at this time. Serial labs (4) Diabetes mellitus type 2 in obese: Plan: Last a1c 6.1. Holding home metformin. 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 Managed with Warfarin, supratherapeutic INR of 3.4 on admission. Now reversed with vitamin K. (6) SDAT (senile dementia of Alzheimer's type): Plan: Memantine 5mg BID . Supportive care (7) Paroxysmal atrial fibrillation: Plan: Controlled rate. Amiodarone drip converted to oral amiodarone today, August 03. Cardiology consultation appreciated. Coumadin has been reversed. Telemetry. Echo report noted (8) Hypertension: Plan: Controlled with lisinopril, coreg, amlodipine. Hold meds as needed for low blood pressure (9) Septic shock: Plan: Pressor support has been discontinued. Improved. Blood cultures negative to date (10) ARDS (adult respiratory distress syndrome): Plan: Suspected per critical care entry. Serial chest x-ray. Supportive care (11) Aspiration pneumonia: Plan: Chest x-ray today, August 03, looks better. urrently on Zosyn therapy. Serial chest x-ray (12) Acute blood loss anemia: Plan: Congregational status precludes any blood transfusion. Hemoglobin continues to fall, now 6.9. We will follow (13) Acute kidney injury: Plan: Creatinine has improved from admission. Monitor intake and output. Serial labs Plan To be determined Admission and Anticipated Discharge Date Admission Date: July 29, 2022 Subjective Alert and oriented today. He looks much better. Chest x-ray looks better to with much better aeration of the left lung. Hemoglobin is down to 6.9 but he is a Congregational and has completely refused any blood products. Amiodarone drip converted to oral amiodarone today, March 11. Appreciate cardiology consultation and recommendations. He remains on intravenous Zosyn. He is off pressor support. Review of Systems Review of Systems: Constitutional-no fever or chills ENT-no blurred vision, no double vision, no epistaxis, no sore throat Respiratory-right lateral chest wall pain with deep inspiration due to underly ing rib fractures. Nonproductive cough, no wheezing, no shortness of breath Cardiac-no palpitations, no chest pain, no syncope GI-no nausea, vomiting, diarrhea, melena, hematochezia -no urinary retention, no urinary incontinence, no dysuria, no hematuria Musculoskeletal-multiple right lateral rib fractures and associated pain, right hip fracture and associated pain Skin-no bruising, no rashes, no pruritus Neuro-generalized weakness and advanced age debility Psych-no depression, no anxiety Physical Exam Physical Exam: General-awake and oriented. No fevers, no chills HEENT-head atraumatic and normocephalic, pupils equal and reactive to light, extraocular muscles intact Neck-no lymphadenopathy or thyromegaly, trachea midline Chest-diminished breath sounds on the left side but improved from yesterday. Scattered bilateral rhonchi. No wheezing Cardiac-irregular rhythm. Controlled rate. Normal S1 and S2 Abdomen-normal bowel sounds, nontender, no hepatosplenomegaly Extremities-right leg is slightly shortened from right hip fracture . Associated limited range of motion right hip Neuro-cranial nerves II through XII intact, motor and sensory function within normal limits, strength symmetrical but generalized weakness, no focal deficits Psych- normal affect. Results & Data Results & Data ([facility]) Vital Signs (Past 12 Hours) Vital Signs Temp Pulse Pulse Pulse Resp BP Pulse Ox 08/03/22 11:45 68 20 94 08/03/22 10:49 37.2 C 69 20 116/67 94 08/03/22 09:37 08/03/22 08:17 92 08/03/22 07:43 71 08/03/22 07:43 70 20 97 08/03/22 07:22 36.7 C 71 20 123/69 97 08/03/22 04:37 70 22 98 08/03/22 03:30 37.1 C 75 19 121/71 95 O2 Del Method O2 Flow Rate FiO2 08/03/22 11:45 High Flow Nasal Cannula 25 55 08/03/22 10:49 High Flow Nasal Cannula 08/03/22 09:37 High Flow Nasal Cannula 08/03/22 08:17 55 08/03/22 07:43 08/03/22 07:43 High Flow Nasal Cannula 25 80 08/03/22 07:22 High Flow Nasal Cannula 08/03/22 04:37 High Flow Nasal Cannula 30 100 08/03/22 03:30 High Flow Nasal Cannula 30 Laboratory Results 08/03/22 06:32 08/03/22 06:32 PG Care Time/CCT Total # of Minutes Spent Total Time Spent with Patient: Total time spent is greater than 50% in coordination of care (as documented) at patient's floor/unit and/or counseling patient: Coding Level of Care Code 67995 SUB INP/OBS CARE 3/50MIN Diagnoses Closed intertrochanteric fracture of femur S72.143A Multiple fractures of rib involving four or more ribs S22.49XA Transaminitis R74.01 Diabetes mellitus type 2 in obese E11.69; E66.9 Hx of deep venous thrombosis Z86.718 SDAT (senile dementia of Alzheimer's type) G30.1; F02.80 Paroxysmal atrial fibrillation I48.0 Hypertension I10 Septic shock A41.9; R65.21 ARDS (adult respiratory distress syndrome) J80 Aspiration pneumonia J69.0 Acute blood loss anemia D62 Acute kidney injury N17.9
--- NOTE | 2022-08-03 12:59 | Pulmonology Progress Note ---
Date of Service August 03, 2022 Assessment & Plan (1) Acute hypoxemic respiratory failure: (2) Septic shock: (3) ARDS (adult respiratory distress syndrome): (4) Aspiration pneumonia: (5) Acute hemorrhage: (6) Refusal of blood transfusions as patient is Mormonism: Plan 82-year-old male who presented to the hospital as a trauma now found to have acute hemorrhage, aspiration pneumonia, hypoxemic respiratory failure and septic shock Chest x-ray from today personally reviewed. Left lower lobe infiltrate appears less pronounced today. Better aeration of the left lower lobe. Right lung appears similar. 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 Status post bronch 07/31/2022 with significant mucopurulent secretions aspirated. Oxygenation improved post bronchoscopy. Cultures negative to date. Continue antibiotics. Wean high flow as able. Continue CoughAssist. Continue hypertonic saline. Unfortunately, he remains high risk for DVT and PE, but we are unable to anticoagulate him due to worsening anemia. Patient is also Mormonism and refuses blood products. His hemoglobin continues to drop. Thank you for allowing me to participate in the care of this patient. No further interventions recommended at this time. Pulmonary to sign off. Please call with questions. Admission and Anticipated Discharge Date Admission Date: July 29, 2022 Subjective High flow oxygen down to 55% FiO2 and 25% liters per minute. Patient much more awake and alert. Tolerating CoughAssist and bringing up secretions with CoughAssist. Review of Systems Review of Systems: All systems reviewed & are unremarkable except as noted in HPI & below Physical Exam Physical Exam: Constitutional: Awake and alert. No significant distress. Eyes: Pupils are equal round and reactive to light. Conjunctivae are normal. Anicteric sclera. Ears nose, mouth and throat: Mallampati 2. Neck: Trachea is midline. Visual inspection is normal. Respiratory: Rhonchi in the left lung. Cardiovascular: Regular rate and rhythm. No murmurs. No edema. Gastrointestinal: Normal bowel sounds, soft, nontender and nondistended. No hepatosplenomegaly noted. Musculoskeletal: No cyanosis. Patient is able to move all extremities. Skin: No rashes, warm dry and intact. Neurologic: No focal deficits. Psychiatric: Awake, alert and oriented x3. Mild anxiety. Results & Data Results & Data ([facility]) Vital Signs (Past 12 Hours) Vital Signs Temp Pulse Pulse Pulse Resp BP Pulse Ox 08/03/22 11:45 68 20 94 08/03/22 10:49 37.2 C 69 20 116/67 94 08/03/22 09:37 08/03/22 08:17 92 08/03/22 07:43 71 08/03/22 07:43 70 20 97 08/03/22 07:22 36.7 C 71 20 123/69 97 08/03/22 04:37 70 22 98 08/03/22 03:30 37.1 C 75 19 121/71 95 O2 Del Method O2 Flow Rate FiO2 08/03/22 11:45 High Flow Nasal Cannula 25 55 08/03/22 10:49 High Flow Nasal Cannula 08/03/22 09:37 High Flow Nasal Cannula 08/03/22 08:17 55 08/03/22 07:43 08/03/22 07:43 High Flow Nasal Cannula 25 80 08/03/22 07:22 High Flow Nasal Cannula 08/03/22 04:37 High Flow Nasal Cannula 30 100 08/03/22 03:30 High Flow Nasal Cannula 30 PG Care Time/CCT Total # of Minutes Spent Total Time Spent with Patient: Total time spent is greater than 50% in coordination of care (as documented) at patient's floor/unit and/or counseling patient: Coding Level of Care Code 48612 SUB INP/OBS CARE 06/19MIN Diagnoses Acute hypoxemic respiratory failure J96.01 Septic shock A41.9; R65.21 ARDS (adult respiratory distress syndrome) J80 Aspiration pneumonia J69.0 Acute hemorrhage R58 Refusal of blood transfusions as patient is Mormonism Z53.1
--- NOTE | 2022-08-03 17:40 | XRay Report ---
XR chest 1V portable CLINICAL HISTORY: aspiration pneumonia, respiratory failure TECHNIQUE: Single frontal radiograph of the chest was obtained. Comparison: Comparison is made to chest radiograph 08/02/2022 FINDINGS: Left jugular venous catheter terminates at the junction of the brachiocephalic vein and SVC. Cardiome marisol is noted. Interval significant improvement in left airspace opacity. Mild bilateral airspace opa cities are seen favoring the lower lungs. No evidence of pleural effusion or pneumothorax. IMPRESSION: Interval improvement in left airspace opacity likely due to improved atelectasis. Residual bilateral airspace opacities may represent atelectasis, pneumonia, and/or aspiration. ACT 112: Negative or not required by law. Electronically signed by: Abner Shah M.D. 08/03/2022 5:39 PM
[2022-08-03] MEDS: LATANOPROST 0.005% OP SOLN 2.5 ML BTL OPB SCH (22:42)
[2022-08-04] MEDS: PIPERACILLIN/TAZOBACTAM 4.5 GM in DEXTROSE 5% 100 ML IV SCH ×4 (00:31→23:56)
[2022-08-04 07:04] LABS: Hematocrit (blood only) 18.8 % (42.0-52.0); Hemoglobin 6.6 g/dl (14.0-18.0); Mean Corpuscular Hemoglobin 32.4 pg (25.0-34.0); Mean Corpuscular Hgb Conc 35.1 g/dL (32.0-36.0); Mean Corpuscular Volume 92.2 fL (80.0-100.0); Mean Platelet Volume 9.6 fL (9.4-12.4); Platelet Count 131 K/uL (130-400); RDW Coefficient of Variation 12.6 % (11.5-14.5); RDW Standard Deviation 42.3 fL (36.4-46.3); Red Blood Count 2.04 M/uL (4.70-6.10); White Blood Count 4.37 K/ul (4.8-10.8)
[2022-08-04] MEDS: SODIUM CHLOR 7% 4 ML NEB NEB SCH ×2 (07:14→19:11)
[2022-08-04 07:39] LABS: Basophils # (auto) 0.02 K/uL (0-0.2); Basophils % (auto) 0.5 %; Eosinophils # (auto) 0.11 K/uL (0-0.50); Eosinophils % (auto) 2.5 %; Immature Granulocytes # (auto) 0.03 K/uL (0.01-0.20); Immature Granulocytes % (auto) 0.7 %; Lymphocytes # (auto) 0.65 K/uL (1.2-3.4); Lymphocytes % (auto) 14.9 %; Monocytes # (auto) 0.49 K/uL (0.11-0.59); Monocytes % (auto) 11.2 %; Neutrophils # (auto) 3.07 K/uL (1.40-6.50); Neutrophils % (auto) 70.2 %; Polychromasia 1+
[2022-08-04] MEDS: INSULIN ASPART PER UNIT CHARGE SC SCH ×4 (08:07→20:38)
[2022-08-04] MEDS: PANTOprazole 40 MG TAB PO SCH (08:08)
[2022-08-04] MEDS: carvediloL 6.25 MG TAB PO SCH ×2 (08:08→21:13)
[2022-08-04] MEDS: AMIODARONE 200 MG TAB PO SCH (08:08)
[2022-08-04 08:40] LABS: BUN Creatinine Ratio 18.5 (10-20); Calcium 7.4 mg/dl (8.5-10.1); Creatinine Clr Calc Pharmacy 64.8 ml/min; Est GFR (African American) 88.8 ml/min; Est GFR (Non-African American) 76.6 ml/min; Phosphorus 2.5 mg/dl (2.5-4.9); Potassium 3.6 mmol/L (3.5-5.1)
--- NOTE | 2022-08-04 09:19 | Progress Notes ---
DATE OF SERVICE: 08/04/2022. SUBJECTIVE: An 82-year-old gentleman admitted with multiple medical comorbidities, status post a fal l with right intertrochanteric hip fracture, multiple rib fractures. We were planning on fixing his hip several days ago, but he went into respiratory arrest, was intubated. He is now extubated and on the floor. Seems to be doing a little bit better, but still quite ill. He denies any new complaint s. He does respond to commands. OBJECTIVE: VITAL SIGNS: Temperature 36.9. Vital signs are stable. GENERAL: Shows a pleasant, elderly male. He is sitting up in bed, does not look in good health. EXTREMITIES: Examination of the right hip and leg reveals his leg to be slightly shortened and exter stevie rotated. He has got pain with any type of hip motion. NEUROLOGIC: He is neurologically intact. LABORATORY DATA: Hemoglobin 6.6. Hematocrit 18.8. Electrolytes are pending. ASSESSMENT: An 82-year-old male, Alevism, with multiple medical comorbidities, admitted wi th right hip fracture, multiple rib fractures. He does not look well. PLAN: At this point, treatment is supportive care. They are trying to medically optimize him. He is a Alevism. He will not take blood products. He is quite anemic. He certainly needs to b e medically optimized before surgical intervention. We will allow the medicine physicians to work on him and see what they can do as far as medical optimization. If they get to the point where he is m edically stable and wants his hip fixed, let us know. Otherwise, we will treat him with supportive c are. Any orthopedic questions can be directed to me at [phone]. We are going to sign off at [facility] for now. We will check on him intermittently, but feel free to let us know if his situation turn s around and he needs his hip fixed. Job ID: [id number]
[2022-08-04] MEDS ORDERED: IRON SUCROSE 200 MG in 0.9 % SODIUM CHLORIDE 100 ML IV ONE (10:00)
--- NOTE | 2022-08-04 10:21 | Electrocardiogram Report ---
Test Reason : Blood Pressure : / mmHG Vent. Rate : 105 BPM Atrial Rate : 054 BPM P-R Int : 000 ms QRS Dur : 088 ms QT Int : 390 ms P-R-T Axes : 000 021 093 degrees QTc Int : 515 ms Atrial fibrillation with rapid ventricular response ST and T wave changes consider inferolateral ischemia Abnormal ECG When compared with ECG of 29-JUL-2022 18:10, Atrial fibrillation has replaced Sinus rhythm Vent. rate has increased BY [address] more depressed Anterior leads and lateral leads Nonspecific T wave abnormality no longer evident in Anterior leads QT has lengthened Confirmed by Jed Rahman ([id number]) on 08/04/2022 10:21:26 AM Referred By: REFERRED SELF Confirmed By:Jed Rahman
--- NOTE | 2022-08-04 12:00 | Hospitalist Progress Note ---
Date of Service August 04, 2022 Assessment & Plan (1) Closed intertrochanteric fracture of femur: Plan: Stabilization and pain control measures for now. Appreciate orthopedic consult and recommendations. Eventual surgical intervention if he stabilizes. (2) Multiple fractures of rib involving four or more ribs: Plan: Acute, right ribs 3-7. From fall at home. Pain control measures. Incentive spirometry (3) Transaminitis: Plan: Multifactorial. No intervention necessary at this time. Serial labs (4) Diabetes mellitus type 2 in obese: Plan: Last a1c 6.1. Holding home metformin. 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 Supratherapeutic INR of 3.4 on admission. Now reversed with vitamin K. (6) SDAT (senile dementia of Alzheimer's type): Plan: Memantine 5mg BID . Supportive care (7) Paroxysmal atrial fibrillation: Plan: Controlled rate. Amiodarone drip converted to oral amiodarone on August 03. Cardiology consultation appreciated. Coumadin has been reversed. Telemetry. Echo report noted (8) Hypertension: Plan: Controlled with lisinopril, coreg, amlodipine. Hold meds as needed for low blood pressure (9) Septic shock: Plan: Pressor support has been discontinued. Improved. Blood cultures negative to date (10) ARDS (adult respiratory distress syndrome): Plan: Suspected per critical care entry. Serial chest x-ray. Supportive care (11) Aspiration pneumonia: Plan: Chest x-ray on August 03, looked better. Currently on Zosyn therapy. We will repeat chest x-ray again tomorrow, August 05 . Serial chest x-ray (12) Acute blood loss anemia: Plan: Adventism status precludes any blood transfusion. Hemoglobin continues to fall, now 6.6. He agrees to iron transfusion. Serial labs (13) Acute kidney injury: Plan: Creatinine has improved from admission. Monitor intake and output. Serial labs Plan To be determined Admission and Anticipated Discharge Date Admission Date: July 29, 2022 Subjective Alert and oriented. He was talking on the phone with his and I entered the room. I subsequently spoke to her over the phone. He is much improved overall. Hemoglobin continues to fall down to 6.6. He is a Adventism and will not allow blood transfusion. He does agree to iron transfusion however. This may help. Orthopedic entry noted. They will sign off for now. If he reaches a point where his right hip can be repaired, they will be reconsulted. He is now on oxygen per nasal cannula at 6 L Review of Systems Review of Systems: Constitutional-no fever or chills ENT-no blurred vision, no double vision, no epistaxis, no sore throat Respiratory-right lateral chest wall pain with deep inspiration due to underlying rib fractures. Nonproductive cough, no wheezing, no shortness of breath Cardiac-no palpitations, no chest pain, no syncope GI-no nausea, vomiting, diarrhea, melena, hematochezia -no urinary retention, no urinary incontinence, no dysuria, no hematuria Musculoskeletal-multiple right lateral rib fractures and associated pain, right hip fracture and associated pain Skin-no bruising, no rashes, no pruritus Neuro-generalized weakness and advanced age debility Psych-no depression, no anxiety Physical Exam Physical Exam: General-awake and oriented. No fevers, no chills HEENT-head atraumatic and normocephalic, pupils equal and reactive to light, extraocular muscles intact Neck-no lymphadenopathy or thyromegaly, trachea midline Chest-diminished breath sounds on the left side. Scattered bilateral rhonchi. No wheezing Cardiac-irregular rhythm. Controlled rate. Normal S1 and S2 Abdomen-normal bowel sounds, nontender, no hepatosplenomegaly Extremities-right leg is slightly shortened from right hip fracture . Associated limited range of motion right hip Neuro-cranial nerves II through XII intact, motor and sensory function within normal limits, strength symmetrical but generalized weakness, no focal deficits Psych- normal affect. Results & Data Results & Data ([facility]) Vital Signs (Past 12 Hours) Vital Signs Temp Pulse Pulse Resp BP BP Pulse Ox 08/04/22 10:46 37.4 C 74 20 125/66 91 08/04/22 09:31 08/04/22 07:42 36.9 C 67 20 117/66 92 08/04/22 07:16 64 08/04/22 07:17 63 18 98 08/04/22 04:15 37 C 64 16 133/70 95 08/04/22 01:50 08/03/22 23:26 37.5 C 71 16 106/52 L 93 O2 Del Method O2 Flow Rate 08/04/22 10:46 Nasal Cannula 6 08/04/22 09:31 High Flow Nasal Cannula 08/04/22 07:42 Nasal Cannula 6 08/04/22 07:16 08/04/22 07:17 Nasal Cannula 8 08/04/22 04:15 High Flow Nasal Cannula 8 08/04/22 01:50 High Flow Nasal Cannula 8 08/03/22 23:26 High Flow Nasal Cannula 8 Laboratory Results 08/04/22 05:43 08/04/22 05:43 PG Care Time/CCT Total # of Minutes Spent Total Time Spent with Patient: Total time spent is greater than 50% in coordination of care (as documented) at patient's floor/unit and/or counseling patient: Coding Level of Care Code 41515 SUB INP/OBS CARE 350MIN Diagnoses Closed intertrochanteric fracture of femur S72.143A Multiple fractures of rib involving four or more ribs S22.49XA Transaminitis R74.01 Diabetes mellitus type 2 in obese E11.69; E66.9 Hx of deep venous thrombosis Z86.718 SDAT (senile dementia of Alzheimer's type) G30.1; F02.80 Paroxysmal atrial fibrillation I48.0 Hypertension I10 Septic shock A41.9; R65.21 ARDS (adult respiratory distress syndrome) J80 Aspiration pneumonia J69.0 Acute blood loss anemia D62 Acute kidney injury N17.9
[2022-08-04] MEDS: ALBUT/IPRATROP 3MG/0.5MG NEB 3 ML VIAL NEB SCH ×3 (13:17→19:11)
[2022-08-04 17:54] LABS: iSTAT Allen Test Pass; iSTAT Art Bld Gas pCO2 Correct 36 mmHg (35-46); iSTAT Art Bld Gas pH Corrected 7.462 (7.35-7.45); iSTAT Arterial Blood Gas HCO3 26 meg/L (19-24); iSTAT Arterial Blood Gas pCO2 36 mmHg (35-46); iSTAT Arterial Blood Gas pH 7.46 (7.35-7.45); iSTAT Arterial Blood Gas pO2 57 mmHg (80-95); iSTAT Arterial Blood Gas pO2 C 57; iSTAT Carbon Dioxide 27 mmol/L (24-31); iSTAT FiO2 100 %; iSTAT Hematocrit 21 % (42-52); iSTAT Hemoglobin 7.1 g/dl (14.0-18.0); iSTAT Potassium 3.6 mmol/L (3.3-5.0); iSTAT Site R Radial; iSTAT Sodium 136 mmol/L (135-144)
[2022-08-04] MEDS: LATANOPROST 0.005% OP SOLN 2.5 ML BTL OPB SCH (21:13)
[2022-08-04] MEDS: ACETAMINOPHEN 1,000 MG/100 ML VIAL IV PRN (23:30)
[2022-08-04] MEDS: LORazepam 2 MG/1 ML VIAL IV PRN (23:52)
--- NOTE | 2022-08-05 07:13 | Hospitalist Progress Note ---
Date of Service August 05, 2022 Assessment & Plan (1) Acute hypoxemic respiratory failure: Plan: Patient had CODE BLUE on 07/31/2022 was found by nursing staff to have his oxygen off and to be unresponsive Likely aspiration pneumonia, has been on Zosyn, to complete a 7-day course on 08/[address] My varma and noted to have mucopurulent secretions in the epiglottis and vocal cords, did also undergo bronc with improvement in oxygenation post bronch and was able to be extubated the following day However, has had significant oxygen demand and currently is on high flow nasal cannula with a flow rate of 30 L and FiO2 of 70% Since these events, patient and indicated that he would not want heroic measures such as chest compressions or ACLS in the event of cardiac arrest, nor repeat intubation Patient has very poor insight into his overall prognosis, discussed that as we see how he progresses in the coming days we will have a better understanding of what level of improvement we will get. I discussed frankly with the family that given his aspiration pneumonia which does not appear to be improving, his continued aspiration with recommendation by speech for him to be n.p.o., his anemia which we are unable to rectify due to his wishes as a Jewish, and his rib fractures, he has several reasons to have trouble breathing, some of which will either take a very long time to fix or may not improve. We also discussed that if he were to be reintubated, due to his poor functional status, there has been concern that this would cause significant detriment to his quality of life. We discussed options for n.p.o. with NG tube versus permissive aspiration, which at this time the family wanted to think about as they did not know which direction to go. I discussed that NG tube would remove possible aspiration from food/fluids, but would not remove possibility of aspiration of stomach contents with reflux or of normal secretions. They discussed that they would like to see how he does overnight and discuss goals of care further trell salazar. I let them know that it would be a different hospitalist on service that would be taking care of Saira. (2) Closed intertrochanteric fracture of femur: Plan: Stabilization and pain control measures for now. Appreciate orthopedic consult and recommendations, however unable to perform surgery given both tenuous respiratory status as well as low hemoglobin without ability to transfuse. Eventual surgical intervention could be considered if he stabilizes, however given his low hemoglobin and Jewish status this would not be in the near future. (3) Multiple fractures of rib involving four or more ribs: Plan: Acute, right ribs 3-7. From fall at home. Pain control measures. Incentive spirometry. (4) Transaminitis: Plan: Multifactorial in the setting of sepsis, bleeding, and shock; no evidence of intraabdominal pathology. (5) Diabetes mellitus type 2 in obese: Plan: Last a1c 6.1. Holding home metformin. 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 Supratherapeutic INR of 3.4 on admission. Now reversed with vitamin K. Not on any anticoagulation due to acute blood loss anemia. (7) SDAT (senile dementia of Alzheimer's type): Plan: Memantine 5mg BID . Supportive care (8) Paroxysmal atrial fibrillation: Plan: Controlled rate. Amiodarone drip converted to oral amiodarone on August 03. Cardiology consultation appreciated. Coumadin has been reversed. Telemetry. Echo report noted (9) Hypertension: Plan: Controlled with lisinopril, coreg, amlodipine. Hold meds as needed for low blood pressure (10) Septic shock: Plan: Pressor support has been discontinued. Improved. Blood cultures negative to date (11) Aspiration pneumonia: Plan: Currently on Zosyn therapy, rpeat CXR tomorrow AM. Aspiration precautions, NPO for now and see how he does overnihgt. Discussion about permissive aspiration described above. (12) Acute blood loss anemia: Plan: Jewish status precludes any blood transfusion. Hemoglobin stable today, 7.1. He agrees to iron transfusion which he received yesterday. (13) Acute kidney injury: Plan: Creatinine has improved from admission. Monitor intake and output. Serial labs Plan Patient prognosis is guarded given his acute symptomatic anemia, multiple rib fractures, aspiration pneumonia which does not seem to be improving, and acute hypoxic respiratory failure which also seems to be improving very slowly if at all. Discussion with family as described above. Suspect in the coming days may be discussing goals of care further, or perhaps have palliative care reevaluate patient after discussion about permissive aspiration today. Admission and Anticipated Discharge Date Admission Date: July 29, 2022 Subjective Patient without any acute events overnight. He continues to require high flow nasal cannula at a flow rate of 30 L, able to de-escalate his FiO2 from 100% to 70% today. Vital signs otherwise normal. He does not have complaints of trouble breathing on high flow. No complaints of abdominal pain today. Hip and chest wall pain well controlled with Tylenol IV as needed Review of Systems Review of Systems: All systems reviewed & are unremarkable except as noted in Subjective Physical Exam 2 Constitutional: + ill appearing and + frail appearing; no acute distress Respiratory: Normal respiratory effort, left lower lung with rhonchi Cardiovascular: Heart rate irregularly irregular no murmurs no peripheral edema Gastrointestinal (Abdomen): normal bowel sounds, soft, nontender, no hepatosplenomegaly Skin: no rashes, warm and dry Psychiatric: Alert and oriented to self, needs frequent redirection and at times does not seem to understand the information being given to him Results & Data Results & Data ([facility]) Vital Signs (Past 12 Hours) Vital Signs Temp Pulse Pulse Resp BP BP Pulse Ox 08/05/22 03:31 61 22 91 08/05/22 03:35 36.9 C 76 16 106/58 L 98 08/05/22 03:20 08/04/22 22:06 77 08/05/22 00:16 77 32 H 91 08/04/22 23:15 38.4 C H 82 20 116/66 90 08/04/22 19:58 37.2 C 92 H 22 134/68 90 O2 Del Method O2 Flow Rate FiO2 08/05/22 03:31 High Flow Nasal Cannula 40 100 08/05/22 03:35 High Flow Nasal Cannula 35 100 08/05/22 03:20 High Flow Nasal Cannula 35 100 08/04/22 22:06 08/05/22 00:16 High Flow Nasal Cannula 35 100 08/04/22 23:15 High Flow Nasal Cannula 40 100 08/04/22 19:58 High Flow Nasal Cannula 40 100 PG Care Time/CCT Total # of Minutes Spent Total Time Spent with Patient: Total time spent is greater than 50% in coordination of care (as documented) at patient's floor/unit and/or counseling patient: Coding Level of Care Code 01893 SUB INP/OBS CARE 3/50MIN Diagnoses Acute hypoxemic respiratory failure J96.01 Closed intertrochanteric fracture of femur S72.143A Multiple fractures of rib involving four or more ribs S22.49XA Transaminitis R74.01 Diabetes mellitus type 2 in obese E11.69; E66.9 Hx of deep venous thrombosis Z86.718 SDAT (senile dementia of Alzheimer's type) G30.1; F02.80 Paroxysmal atrial fibrillation I48.0 Hypertension I10 Septic shock A41.9; R65.21 Aspiration pneumonia J69.0 Acute blood loss anemia D62 Acute kidney injury N17.9
[2022-08-05] MEDS: SODIUM CHLOR 7% 4 ML NEB NEB SCH ×2 (07:24→19:32)
[2022-08-05] MEDS: ALBUT/IPRATROP 3MG/0.5MG NEB 3 ML VIAL NEB SCH ×4 (07:25→19:32)
--- NOTE | 2022-08-05 07:38 | XRay Report ---
SINGLE VIEW CHEST CLINICAL HISTORY: Aspiration pneumonia FINDINGS: An AP, portable, upright chest radiograph is compared to study dated 08/03/2022 and correlat ed with chest CT dated 07/31/2022. The examination is degraded by portable technique and apical lordoti c positioning. A left internal jugular central venous catheter is unchanged in position. The heart is enlarged noting atherosclerotic calcification of the thoracic aorta. The pulmonary vasculature is no ncongested. There is increasing airspace consolidation in the left mid to lower lung as compared to p revious. Airspace consolidation in the right upper lobe is new from previous. Suspect a small left pl eural effusion. No pneumothorax is seen. The skeletal structures are osteopenic. Bilateral rib fractu res are again noted. Advanced arthritic change is seen in the right shoulder. IMPRESSION: 1. Multifocal airspace consolidation as above. This has significantly increased from 08/03/2022. 2. Cardiomegaly without radiographic evidence of congestive failure. 3. Suspect a small left pleural effusion. ACT 112: Negative or not required by law. Electronically signed by: Saleem Doll M.D. 08/05/2022 7:37 AM
[2022-08-05 07:54] LABS: BUN Creatinine Ratio 21.6 (10-20); Calcium 7.4 mg/dl (8.5-10.1); Creatinine Clr Calc Pharmacy 61.5 ml/min; Est GFR (African American) 83.3 ml/min; Est GFR (Non-African American) 71.9 ml/min; Potassium 3.5 mmol/L (3.5-5.1)
[2022-08-05 08:07] LABS: Hematocrit (blood only) 20.7 % (42.0-52.0); Hemoglobin 7.1 g/dl (14.0-18.0); Mean Corpuscular Hemoglobin 32.4 pg (25.0-34.0); Mean Corpuscular Hgb Conc 34.3 g/dL (32.0-36.0); Mean Corpuscular Volume 94.5 fL (80.0-100.0); Mean Platelet Volume 9.6 fL (9.4-12.4); Nucleated RBC # (auto) 0.03 K/uL (0-0.12); Nucleated RBC % (auto) 0.5 %; Platelet Count 138 K/uL (130-400); RDW Coefficient of Variation 13.3 % (11.5-14.5); RDW Standard Deviation 45.4 fL (36.4-46.3); Red Blood Count 2.19 M/uL (4.70-6.10); White Blood Count 6.25 K/ul (4.8-10.8)
[2022-08-05 08:09] LABS: Basophils # (auto) 0.01 K/uL (0-0.2); Basophils % (auto) 0.2 %; Eosinophils # (auto) 0.01 K/uL (0-0.50); Eosinophils % (auto) 0.2 %; Immature Granulocytes # (auto) 0.06 K/uL (0.01-0.20); Lymphocytes # (auto) 0.64 K/uL (1.2-3.4); Lymphocytes % (auto) 10.2 %; Monocytes # (auto) 0.51 K/uL (0.11-0.59); Monocytes % (auto) 8.2 %; Neutrophils # (auto) 5.02 K/uL (1.40-6.50); Neutrophils % (auto) 80.2 %; Polychromasia 1+
[2022-08-05] MEDS: INSULIN ASPART PER UNIT CHARGE SC SCH ×4 (08:49→21:24)
[2022-08-05] MEDS: AMIODARONE 200 MG TAB PO SCH (08:50)
[2022-08-05] MEDS: PIPERACILLIN/TAZOBACTAM 4.5 GM in DEXTROSE 5% 100 ML IV SCH ×2 (08:50→16:12)
[2022-08-05] MEDS: PANTOprazole 40 MG TAB PO SCH (08:51)
[2022-08-05] MEDS: carvediloL 6.25 MG TAB PO SCH ×2 (08:51→21:24)
[2022-08-05] MEDS: ACETAMINOPHEN 1,000 MG/100 ML VIAL IV PRN (11:27)
[2022-08-05] MEDS ORDERED: Nursing to Pharmacy Communication SCH (21:15)
[2022-08-05] MEDS: LATANOPROST 0.005% OP SOLN 2.5 ML BTL OPB SCH (21:30)
[2022-08-05] MEDS: LORazepam 2 MG/1 ML VIAL IV PRN (21:39)
[2022-08-06] MEDS: INSULIN ASPART PER UNIT CHARGE SC SCH ×4 (00:05→16:39)
[2022-08-06] MEDS: PIPERACILLIN/TAZOBACTAM 4.5 GM in DEXTROSE 5% 100 ML IV SCH ×4 (00:06→23:04)
[2022-08-06] MEDS: ALBUT/IPRATROP 3MG/0.5MG NEB 3 ML VIAL NEB SCH ×4 (07:04→19:41)
[2022-08-06] MEDS: SODIUM CHLOR 7% 4 ML NEB NEB SCH ×2 (07:04→19:41)
[2022-08-06 07:10] LABS: Hemoglobin 6.4 g/dl (14.0-18.0); Mean Corpuscular Hemoglobin 31.7 pg (25.0-34.0); Mean Corpuscular Hgb Conc 33.7 g/dL (32.0-36.0); Mean Corpuscular Volume 94.1 fL (80.0-100.0); Mean Platelet Volume 9.7 fL (9.4-12.4); Platelet Count 166 K/uL (130-400); RDW Coefficient of Variation 13.4 % (11.5-14.5); RDW Standard Deviation 45.9 fL (36.4-46.3); Red Blood Count 2.02 M/uL (4.70-6.10); White Blood Count 5.78 K/ul (4.8-10.8)
[2022-08-06 07:21] LABS: Basophils # (auto) 0.02 K/uL (0-0.2); Basophils % (auto) 0.3 %; Eosinophils % (auto) 1.7 %; Immature Granulocytes # (auto) 0.07 K/uL (0.01-0.20); Immature Granulocytes % (auto) 1.2 %; Lymphocytes # (auto) 0.62 K/uL (1.2-3.4); Lymphocytes % (auto) 10.7 %; Monocytes # (auto) 0.42 K/uL (0.11-0.59); Monocytes % (auto) 7.3 %; Neutrophils # (auto) 4.55 K/uL (1.40-6.50); Neutrophils % (auto) 78.8 %; Polychromasia 1+
[2022-08-06 07:23] LABS: Albumin Level 2.3 gm/dl (3.4-5.0); BUN Creatinine Ratio 27.5 (10-20); Bilirubin,Total 1.4 mg/dl (0.2-1.0); Calcium 7.6 mg/dl (8.5-10.1); Creatinine Clr Calc Pharmacy 70.8 ml/min; Est GFR (Non-African American) 77.7 ml/min; Globulin 2.3 gm/dl (2.5-4.0); Potassium 3.2 mmol/L (3.5-5.1); Total Protein 4.6 gm/dl (6.0-8.3)
[2022-08-06] MEDS ORDERED: bisacodyL 10 MG SUPP PR ONE (08:02)
[2022-08-06 08:29] LABS: Magnesium 1.6 mg/dl (1.7-2.4)
[2022-08-06] MEDS ORDERED: IRON SUCROSE 300 MG in SODIUM CHLORIDE 0.9% 250 ML IV ONE (08:30)
[2022-08-06] MEDS: POTASSIUM CHLORIDE / WTR 10 MEQ/100 ML PLCT IV SCH ×3 (10:11→12:11)
[2022-08-06] MEDS: AMIODARONE 200 MG TAB PO SCH (10:20)
[2022-08-06] MEDS: carvediloL 6.25 MG TAB PO SCH ×2 (10:20→22:26)
[2022-08-06] MEDS: PANTOprazole 40 MG TAB PO SCH (10:21)
[2022-08-06] MEDS: ACETAMINOPHEN 1,000 MG/100 ML VIAL IV PRN ×2 (10:37→23:04)
[2022-08-06] MEDS: MAGNESIUM SULFATE / D5W 1 GM/100 ML BAG IV SCH ×2 (11:17→13:16)
[2022-08-06] MEDS ORDERED: SODIUM CHLORIDE 0.9% 1000ML 250 ML IV ONE (13:26)
--- NOTE | 2022-08-06 14:30 | Hospitalist Progress Note ---
Date of Service August 06, 2022 Assessment & Plan (1) Acute hypoxemic respiratory failure: Plan: severe- 2nd to pneumonia, likely aspiration. s/p code blue on 07/31/2022. intubated by ICU attending at that time - noted to have purulent secretions in the epiglottis & vocal cords at time of intubation. transferred to ICU. s/p bronch - cultures from bronch negative. extubated 08/01/22. on high-flow NC since. high O2 requirement continues. day #6 of IV zosyn. MRSA screen negative - MRSA coverage has been deferred. plan 7 day course of IV abx. consider a repeat COVID test. repeat a cxr in am. 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 orthopedics consulted early in stay but patient has been too critically ill to pursue surgical correction. remains bedrest. cont pain control. stay complicated by #1, aspiration pneumonia, severe acute blood loss anemia, etc. (3) Aspiration pneumonia: Plan: day #6 of 7 of zosyn. with resulting #1. pulmonary status is quite tenuous. repeat CXR am. consider repeat chest CT imaging. currently on duonebs qid. add dexamethasone 6mg IV daily for reactive wheezing. consider repeat COVID testing. cont saline nebs. cont pulmonary toilet. (4) Dysphagia: Plan: I spoke with speech therapy today. They performed repeat swallow eval. He continues to have overt signs/symptoms of aspiration with thins. NPO status advised except for a few bites/spoonfuls of pudding etc for comfort. Speech to cont following. (5) Hypotension: Plan: 2nd to #6, etc. Did require pressors following his code blue early in the stay. holding PO BP meds. gave small fluid bolus followed by maintenance fluids today. (6) Acute blood loss anemia: Plan: 2nd to bleeding into right hip/buttock/thigh from hip fracture, numerous blood draws since admission, etc. no overt GI bleeding. Uatsdin jameson precludes any blood transfusion. Hb <7 today. This is likely playing a role in hypotension. s/p IV venofer 2 days ago. Will give another dose of 300mg x 1 today. repeat CBC in am. check B12/folate to be complete. (7) Multiple fractures of rib involving four or more ribs: Plan: Acute, right-sided ribs #3-7. Minimal pain from such. Denies pleuritic pain. (8) Transaminitis: Plan: Exact cause uncertain but likely reactive from his overall illness. Repeat levels am. (9) Diabetes mellitus type 2 in obese: Plan: Last a1c 6.1 03/2022. Holding home metformin. Cont novolog SSI. With steroids may require basal insulin as well. 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 Was Supratherapeutic on coumadin with INR of 3.4 on admission. Reversed s/p vitamin K. Has not been on any anticoagulation due to acute blood loss anemia. However, risk of VTE is very high due to critical illness, bed-bound status, and prior VTE history. Consider heparin infusion if H/H remain stable overnight. (11) SDAT (senile dementia of Alzheimer's type): Plan: Memantine 5mg BID. (12) Paroxysmal atrial fibrillation: Plan: Remains in NSR. Was on amiodarone drip early in the stay --> converted back to oral amiodarone on August 03 at 200mg/day. However, he is now a strict NPO status. Fortunately half-life of amiodarone is very, very low. If he remains NPO long period of time can always placed back on IV amio. Defer for now. Timing of resumption of anticoagulation is uncertain. Echo this admission - EF 60-65%, grade 2 diastolic dysfunction, mild , pulm HTN. (13) Hypertension: Plan: Previously controlled with lisinopril, coreg, amlodipine. PO meds on hold due to hypotension today requiring fluid bolus as well as strict NPO status. (14) Acute kidney injury: Plan: Peak Cr 2.2 Now <1 BMP am (15) Refusal of blood transfusions as patient is Uats[place]: (16) History of hemorrhagic stroke with residual hemiparesis: Plan: right-sided ICH fall 2021 with residual hemiparesis on left. most recent head CT without hemorrhage. (17) Hypokalemia: Plan: replace IV repeat BMP am replete low mag (18) Hypomagnesemia: Plan: replace IV repeat level am replete low K as well (19) Constipation: Plan: s/p dulcolax suppos today with results (20) Hypoalbuminemia: Plan: albumin is <2.5 we discussed nutrition in detail today unfortunately NPO status needs to be maintained due to dysphagia and aspiration risk very poor candidate for NG tube feedings due to high-flow NC requirements and likely that he would not tolerate an NG could consider PPN but LFTs are high recheck LFTs in am if LFTs remain stable could consider short-term PPN Plan Prognosis is very poor/guarded. Multi-organ failure with severe resp failure, dysphagia, aspiration pneumonia, severe anemia, abnl LFTs, right hip fracture which - to date - has not been surgically repaired due to his critical illness, etc. Lengthy discussion held with family today. Questions answered. Discussed palliative care consultation - they were agreeable. Remains DNR/DNI. complex care coordination; prolonged care time today - at least 90 minutes of care time spent between bedside activity, extensive chart review, care coordination, etc. Admission and Anticipated Discharge Date Admission Date: July 29, 2022 Subjective tele overnight wnl during my visit multiple family members at bedside - 2 sons, , multiple in laws, multiple siblings numerous questions asked about the care plan, swallowing, nutritional status, pneumonia, etc several times during the visit the patient says "I just want to eat" he did not seem to understand the bulk of our conversation, often going back to the issue of eating stayed with patient last pm - she reports he coughed much of the night cough productive of sputum he denies hip pain as long as he is not moving denies pleuritic pain over sites of his rib fractures at one point he stated "I just want to get better so I can stand and get out of bed" I was present at the bedside at least 45 minutes most of which was answering questions of his family Review of Systems Review of Systems: gen - fatigued, weak cv - no cp, no pleuritic pain pulm - cough, dyspnea, sputum production GI - no abd pain, did have a bowel movement with use of dulcolax suppos this am musculo - right hip pain only if he moves Physical Exam Physical Exam: gen - coughing with some sputum production; confused; asks to eat; no distress despite high quantities of HFNC; O2 sats on 80% FiO2 were high 80s during my visit neck - no JVD mouth - MM slightly dry heart - RRR, s1 s2, no murmur lungs - wheezes b/l, decreased BS R apex and L base, crackles right base; no increased work of breathing during the visit abd - soft NT ND BS+ skin - generalized pallor; ecchymoses right groin extending into the scrotal region ext - no peripheral edema, pulses 2+ b/l feet psych - confused Results & Data Results & Data ([facility]) Vital Signs (Past 12 Hours) Vital Signs Temp Pulse Resp BP Pulse Ox O2 Del Method O2 Flow Rate 08/06/22 12:50 37.4 C 75 18 94/56 L 94 Nasal Cannula 2 08/06/22 11:24 74 18 92 High Flow Nasal Cannula 25 08/06/22 07:27 72 122/68 93 High Flow Nasal Cannula 08/06/22 07:06 80 18 70 L High Flow Nasal Cannula 30 08/06/22 03:02 37.8 C H 70 16 122/58 L 90 High Flow Nasal Cannula 30 08/06/22 02:47 70 16 95 High Flow Nasal Cannula 30 FiO2 08/06/22 12:50 08/06/22 11:24 60 08/06/22 07:27 08/06/22 07:06 08/06/22 03:02 08/06/22 02:47 70 Laboratory Results Laboratory Results - last 24 hr 08/06/22 08/06/22 08/06/22 05:47 06:23 06:23 WBC 5.78 RBC 2.02 L Hgb 6.4 L* Hct 19.0 L* MCV 94.1 MCH 31.7 MCHC 33.7 RDW Std Deviation 45.9 RDW Coeff of Mickey 13.4 Plt Count 166 MPV 9.7 Immature Gran % (Auto) 1.2 Neut % (Auto) 78.8 Lymph % (Auto) 10.7 Kinney % (Auto) 7.3 Eos % (Auto) 1.7 Baso % (Auto) 0.3 Neut # (Auto) 4.55 Lymph # (Auto) 0.62 L Kinney # (Auto) 0.42 Eos # (Auto) 0.10 Baso # (Auto) 0.02 Immature Gran # (Auto) 0.07 Polychromasia 1+ Sodium 139 Potassium 3.2 L Chloride 104 Carbon Dioxide 27 Anion Gap 8 BUN 25 H Creatinine 0.91 Est Cr Clr Drug Dosing 70.8 Est GFR ( Amer) 90.0 Est GFR (Non-Af Amer) 77.7 BUN/Creatinine Ratio 27.5 H Glucose 100 H POC Glucose 106 H Calcium 7.6 L Magnesium 1.6 L Total Bilirubin 1.4 H AST 40 H ALT 44 Alkaline Phosphatase 129 H Total Protein 4.6 L Albumin 2.3 L Globulin 2.3 L Albumin/Globulin Ratio 1.0 08/06/22 08/06/22 08/06/22 06:23 11:36 16:35 WBC RBC Hgb Hct MCV MCH MCHC RDW Std Deviation RDW Coeff of Mickey Plt Count MPV Immature Gran % (Auto) Neut % (Auto) Lymph % (Auto) Kinney % (Auto) Eos % (Auto) Baso % (Auto) Neut # (Auto) Lymph # (Auto) Kinney # (Auto) Eos # (Auto) Baso # (Auto) Immature Gran # (Auto) Polychromasia Sodium Potassium Chloride Carbon Dioxide Anion Gap BUN Creatinine Est Cr Clr Drug Dosing Est GFR ( Amer) Est GFR (Non-Af Amer) BUN/Creatinine Ratio Glucose POC Glucose 137 H 148 H Calcium Magnesium Cancelled Total Bilirubin AST ALT Alkaline Phosphatase Total Protein Albumin Globulin Albumin/Globulin Ratio PG Care Time/CCT Total # of Minutes Spent Total Time Spent with Patient: Total time spent is greater than 50% in coordination of care (as documented) at patient's floor/unit and/or counseling patient: Prolonged Care Time Prolonged Care Time: Yes Total Prolonged Care Time: 90 Coding Level of Care Code 15063 SUB INP/OBS CARE 3/50MIN (25 - SIGNIFICANT, SEPARATELY IDENTIFIABLE ) Diagnoses Acute hypoxemic respiratory failure J96.01 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 M80.051A Aspiration pneumonia J69.0 Dysphagia R13.10 Hypotension I95.9 Acute blood loss anemia D62 Multiple fractures of rib involving four or more ribs S22.49XA Transaminitis R74.01 Diabetes mellitus type 2 in obese E11.69; E66.9 Hx of deep venous thrombosis Z86.718 SDAT (senile dementia of Alzheimer's type) G30.1; F02.80 Paroxysmal atrial fibrillation I48.0 Hypertension I10 Acute kidney injury N17.9 Refusal of blood transfusions as patient is U[place] Z53.1 History of hemorrhagic stroke with residual hemiparesis I69.359 Hypokalemia E87.6 Hypomagnesemia E83.42 Constipation K59.00 Constipation type: unspecified constipation type Hypoalbuminemia E88.09 Additional Codes Prolonged Care Time - Prolonged Care Time: Yes ([id number]) (19) Constipation Constipation type: unspecified constipation type Qualified Code(s): K59.00 - Constipation, unspecified
[2022-08-06] MEDS: NSS + 20MEQ KCL 20 MEQ/1,000 ML BAG IV SCH (15:09)
[2022-08-06] MEDS: dexAMETHasone 6 MG in SYRINGE 0 ML IV SCH (15:11)
[2022-08-06] MEDS: LATANOPROST 0.005% OP SOLN 2.5 ML BTL OPB SCH (23:04)
[2022-08-06] MEDS: LORazepam 2 MG/1 ML VIAL IV PRN (23:05)
[2022-08-07] MEDS: INSULIN ASPART PER UNIT CHARGE SC SCH ×4 (00:06→17:58)
[2022-08-07] MEDS: NSS + 20MEQ KCL 20 MEQ/1,000 ML BAG IV SCH (04:11)
--- NOTE | 2022-08-07 07:01 | XRay Report ---
XR chest 1V portable CLINICAL HISTORY: Respiratory failure, b/l pneumonia, interval change COMPARISON STUDY: Chest CT July 31, 2022 and chest radiograph August 05, 2022. FINDINGS: Left internal jugular central line remains in place. There is no pneumothorax. Small left a nd trace right pleural effusions are present. Cardiomegaly is unchanged. Extensive airspace opacities throughout the lungs are present. These have mildly progressed. Possible mild pulmonary edema. IMPRESSION: 1. Progression of extensive bilateral airspace opacities suggestive of pneumonia. 2. Cardiomegaly. Possible mild pulmonary edema. 3. Small left and trace right pleural effusions. ACT 112: Negative or not required by law. Electronically signed by: Ari Silva M.D. 08/07/2022 6:59 AM
[2022-08-07] MEDS: SODIUM CHLOR 7% 4 ML NEB NEB SCH ×2 (07:09→19:36)
[2022-08-07] MEDS: ALBUT/IPRATROP 3MG/0.5MG NEB 3 ML VIAL NEB SCH ×4 (07:09→19:28)
[2022-08-07] MEDS: PIPERACILLIN/TAZOBACTAM 4.5 GM in DEXTROSE 5% 100 ML IV SCH (08:09)
[2022-08-07] MEDS: carvediloL 6.25 MG TAB PO SCH ×2 (08:10→20:22)
[2022-08-07] MEDS: AMIODARONE 200 MG TAB PO SCH (08:10)
[2022-08-07] MEDS: PANTOprazole 40 MG TAB PO SCH (08:10)
[2022-08-07 09:12] LABS: Hematocrit (blood only) 20.3 % (42.0-52.0); Hemoglobin 6.7 g/dl (14.0-18.0); Mean Corpuscular Hemoglobin 32.2 pg (25.0-34.0); Mean Corpuscular Volume 97.6 fL (80.0-100.0); Mean Platelet Volume 9.8 fL (9.4-12.4); Nucleated RBC # (auto) 0.03 K/uL (0-0.12); Nucleated RBC % (auto) 0.5 %; Platelet Count 199 K/uL (130-400); RDW Coefficient of Variation 14.1 % (11.5-14.5); RDW Standard Deviation 49.1 fL (36.4-46.3); Red Blood Count 2.08 M/uL (4.70-6.10); White Blood Count 5.65 K/ul (4.8-10.8)
[2022-08-07 09:15] LABS: Albumin Level 2.4 gm/dl (3.4-5.0); BUN Creatinine Ratio 34.9 (10-20); Bilirubin,Total 1.2 mg/dl (0.2-1.0); Calcium 7.6 mg/dl (8.5-10.1); Creatinine Clr Calc Pharmacy 69.3 ml/min; Est GFR (African American) 92.9 ml/min; Est GFR (Non-African American) 80.2 ml/min; Globulin 2.3 gm/dl (2.5-4.0); Potassium 3.7 mmol/L (3.5-5.1); Total Protein 4.7 gm/dl (6.0-8.3)
[2022-08-07] MEDS ORDERED: IRON SUCROSE 300 MG in SODIUM CHLORIDE 0.9% 250 ML IV ONE (09:15)
--- NOTE | 2022-08-07 09:25 | Communication Note ---
Date of Service: August 07, 2022 Palliative Med Brief Note Case d/w Dr Victor/clinical updates reviewed Patient with progressive resp decline/worsening CXR, resp viral and COVID workup underway. Dr Victor met with family yesterday and various conflicting opinions were noted, creating a lack of clarity for what the goals should be at this junction. A family meeting is recommended for tomorrow after today's workup is obtained and GOC clarified. I called pt , Nikole and [facility] req call back. I advised her I was calling to schedule a family meeting for tomorrow and provided time options of 2-3pm or earlier if desired. Awaiting call back. Edwina Jensen DNP Clinical Director, Palliative Medicine
[2022-08-07 09:39] LABS: Vitamin B12 > 1500 pg/ml (180-914)
[2022-08-07] MEDS ORDERED: TPN/PPN CONSULT PHARMACY PRN (10:31)
[2022-08-07] MEDS ORDERED: TPN/PPN CONSULT PHARMACY STA (10:39)
[2022-08-07] MEDS: HEPARIN SOD 5,000 UNIT/0.5 ML VIAL SQ SCH ×3 (10:54→22:22)
--- NOTE | 2022-08-07 11:41 | Hospitalist Progress Note ---
Date of Service August 07, 2022 Assessment & Plan (1) Acute hypoxemic respiratory failure: Plan: severe- 2nd to b/l pneumonia (RUL, LLL, etc) - likely aspiration. s/p code blue on 07/31/2022. intubated by ICU attending at that time - noted to have purulent secretions in the epiglottis & vocal cords at time of intubation. transferred to ICU. s/p bronch - cultures from bronch negative. extubated 08/01/22. on high-flow NC since. cxr today - worsening infiltrates, but able to wean HFNC today to wall-mounted HF. day #7 of IV zosyn. can d/c zosyn today. check a procal in am. MRSA screen negative - MRSA coverage has been deferred during the stay. gave lasix 20mg IV x 1 due to worsening cxr findings and mild JVD, etc. cont nebs, steroids, etc. 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 orthopedics consulted early in stay but patient has been too critically ill to pursue surgical correction. remains bedrest. cont pain control. stay complicated by #1, aspiration pneumonia, severe acute blood loss anemia, dysphagia, etc. (3) Aspiration pneumonia: Plan: day #7 of 7 of zosyn. stop abx after today's doses. with resulting #1. cont duonebs qid. cont saline nebs. cont dexamethasone 6mg IV daily - day #2 today. cont pulmonary toilet. gentle diuresis today (lasix 20mg IV x 1). repeat COVID testing neg. Flu/RSV testing neg. despite cxr findings today his overall clinical status is improved. recheck labs including procal in am. (4) Dysphagia: Plan: remains npo. continues to fall bedside swallow evals with thin liquids. speech plans to repeat a bedside eval in am tomorrow. results of his evals will heavily dictate his plan moving forward. (5) Hypotension: Plan: 2nd to #6, etc. Did require pressors following his code blue early in the stay. holding PO BP meds. BPs stable today. (6) Acute blood loss anemia: Plan: 2nd to bleeding into right hip/buttock/thigh from hip fracture, numerous blood draws since admission, etc. no overt GI bleeding. [place] jameson precludes any blood transfusion. Hb remains <7 today. Will give another dose of IV venofer 300mg x 1 today. today is dose #3. check retic in am. check CBC in am. vit B12 level wnl. folate level low-normal - folic acid 1mg IV daily. (7) Multiple fractures of rib involving four or more ribs: Plan: Acute, right-sided ribs #3-7. Minimal to no pain from such. Denies pleuritic pain. (8) Transaminitis: Plan: Exact cause uncertain but likely reactive from his overall illness. Repeat levels remain stable. (9) Diabetes mellitus type 2 in obese: Plan: Last a1c 6.1 03/2022. Holding home metformin. Cont novolog SSI. With steroids may require basal insulin as well but thus far BSGs stable. 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 Was Supratherapeutic on coumadin with INR of 3.4 on admission. Reversed s/p vitamin K. Has not been on any anticoagulation due to acute blood loss anemia. However, risk of VTE is very high due to critical illness, bed-bound status, and prior VTE history. As H/H are stable today will start heparin 5000 TID but ideally higher doses should be used given the VTE risk. (11) SDAT (senile dementia of Alzheimer's type): Plan: Memantine 5mg BID. (12) Paroxysmal atrial fibrillation: Plan: Remains in NSR. Was on amiodarone drip early in the stay --> converted back to oral amiodarone on August 03 at 200mg/day. However, he is now a strict NPO status. If he remains NPO long period of time can always placed back on IV amio. Defer for now. Timing of resumption of anticoagulation is uncertain. Echo this admission - EF 60-65%, grade 2 diastolic dysfunction, mild , pulm HTN. (13) Hypertension: Plan: Previously controlled with lisinopril, coreg, amlodipine. BPs stable without the above meds. (14) Acute kidney injury: Plan: Peak Cr 2.2 Now <1 BMP am (15) Refusal of blood transfusions as patient is [place]: (16) History of hemorrhagic stroke with residual hemiparesis: Plan: right-sided ICH fall 2021 with residual hemiparesis on left. most recent head CT without hemorrhage. (17) Hypokalemia: Plan: replaced resolved (18) Hypomagnesemia: Plan: replaced resolved (19) Constipation: Plan: resolved (20) Hypoalbuminemia: Plan: albumin is <2.5 poor candidate for enteral feedings via NG tube thus, start PPN without lipids check phos/mag/bmp/lfts in am watch volume status carefully Plan although O2 requirements are down he still remains tenuous and prognosis is guarded remains DNR/DNI speech to repeat bedside swallow eval tomorrow appreciate palliative care consult - to meet with family tomorrow afternoon to refine goals of care - especially if he fails swallow eval again central line (Left IJ) is nearly 9 days old - tomorrow need to address this - ideally we pull central line and place PICC if TPN is needed longer term, fails swallow eval, etc ok to leave fink out if he can spontaneously void; can place condom cath to keep clean updated 2x's today (I visited his room twice today) ongoing complex care coordination Admission and Anticipated Discharge Date Admission Date: July 29, 2022 Subjective tele overnight wnl pt's stayed again with him overnight he continues with cough with yellow sputum production he remains on high-flow NC (Vapotherm) he denies dyspnea at rest continues with right hip pain late in the day there were issues with his fink catheter apparently there was leaking around the catheter fink was removed a coude catheter was attempted to be placed back but was unsuccessful Review of Systems Review of Systems: gen - no fevers cv - no chest pain pulm - no dyspnea at rest; cough, sputum production, wheezing GI - no abd pain; did have a stool today psych - slept ok last pm Physical Exam Physical Exam: gen - ongoing cough; mildly confused; again asks about eating; no distress neck - mild JVD present today mouth - no thrush heart - RRR, s1 s2, no murmur lungs - wheezes b/l unchanged, decreased BS R apex and L base, crackles remain on right; mild tachypnea noted abd - soft NT ND BS+ skin - generalized pallor; ecchymoses right groin extending into the scrotal region unchanged ext - no peripheral edema, pulses 2+ b/l feet; left IJ CVC clean musculo - right leg mildly shortened and externally rotated Results & Data Results & Data Vital Signs (Past 12 Hours) Vital Signs Temp Pulse Resp BP Pulse Ox O2 Del Method O2 Flow Rate 08/07/22 10:50 36.9 C 65 18 132/72 90 High Flow Nasal Cannula 25 08/07/22 10:16 65 20 91 High Flow Nasal Cannula 30 08/07/22 10:15 76 20 91 High Flow Nasal Cannula 30 08/07/22 08:23 37.0 C 64 16 120/68 93 Nasal Cannula 30 08/07/22 07:15 70 20 97 High Flow Nasal Cannula 30 08/07/22 07:10 70 20 97 High Flow Nasal Cannula 30 08/07/22 04:12 69 18 94 High Flow Nasal Cannula 30 08/07/22 03:48 36.8 C 72 20 118/69 94 High Flow Nasal Cannula 30 FiO2 08/07/22 10:50 08/07/22 10:16 70 08/07/22 10:15 70 08/07/22 08:23 08/07/22 07:15 80 08/07/22 07:10 80 08/07/22 04:12 80 08/07/22 03:48 80 Laboratory Results Laboratory Results - last 24 hr 08/07/22 08/07/22 08/07/22 06:32 08:28 08:28 WBC 5.65 RBC 2.08 L Hgb 6.7 L* Hct 20.3 L* MCV 97.6 MCH 32.2 MCHC 33.0 RDW Std Deviation 49.1 H RDW Coeff of Mickey 14.1 Plt Count 199 MPV 9.8 Absolute Nucleated RBC 0.03 Nucleated RBC % (auto) 0.5 Sodium Potassium Chloride Carbon Dioxide Anion Gap BUN Creatinine Est Cr Clr Drug Dosing Est GFR ( Amer) Est GFR (Non-Af Amer) BUN/Creatinine Ratio Glucose POC Glucose 142 H Calcium Magnesium Total Bilirubin AST ALT Alkaline Phosphatase Total Creatine Kinase Total Protein Albumin Globulin Albumin/Globulin Ratio Vitamin B12 > 1500 H Folate 6.29 TSH SARS-CoV-2 (PCR) Influenza Type A (PCR) Influenza Type B (PCR) RSV (RT-PCR) 08/07/22 08/07/22 08/07/22 08:29 08:29 11:38 WBC RBC Hgb Hct MCV MCH MCHC RDW Std Deviation RDW Coeff of Mickey Plt Count MPV Absolute Nucleated RBC Nucleated RBC % (auto) Sodium 141 Potassium 3.7 Chloride 109 H Carbon Dioxide 25 Anion Gap 7 BUN 30 H Creatinine 0.86 Est Cr Clr Drug Dosing 69.3 Est GFR ( Amer) 92.9 Est GFR (Non-Af Amer) 80.2 BUN/Creatinine Ratio 34.9 H Glucose 132 H POC Glucose 133 H Calcium 7.6 L Magnesium 2.0 Total Bilirubin 1.2 H AST 42 H ALT 43 Alkaline Phosphatase 142 H Total Creatine Kinase 57 Total Protein 4.7 L Albumin 2.4 L Globulin 2.3 L Albumin/Globulin Ratio 1.0 Vitamin B12 Folate TSH 1.102 SARS-CoV-2 (PCR) Influenza Type A (PCR) Influenza Type B (PCR) RSV (RT-PCR) 08/07/22 08/07/22 08/08/22 13:55 17:57 00:36 WBC RBC Hgb Hct MCV MCH MCHC RDW Std Deviation RDW Coeff of Mickey Plt Count MPV Absolute Nucleated RBC Nucleated RBC % (auto) Sodium Potassium Chloride Carbon Dioxide Anion Gap BUN Creatinine Est Cr Clr Drug Dosing Est GFR ( Amer) Est GFR (Non-Af Amer) BUN/Creatinine Ratio Glucose POC Glucose 131 H 173 H Calcium Magnesium Total Bilirubin AST ALT Alkaline Phosphatase Total Creatine Kinase Total Protein Albumin Globulin Albumin/Globulin Ratio Vitamin B12 Folate TSH SARS-CoV-2 (PCR) NEGATIVE Influenza Type A (PCR) Negative Influenza Type B (PCR) Negative RSV (RT-PCR) Negative PG Care Time/CCT Total # of Minutes Spent Total Time Spent with Patient: Total time spent is greater than 50% in coordination of care (as documented) at patient's floor/unit and/or counseling patient: Coding Level of Care Code 02029 SUB INP/OBS CARE 3/50MIN Diagnoses Acute hypoxemic respiratory failure J96.01 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 M80.051A Aspiration pneumonia J69.0 Dysphagia R13.10 Hypotension I95.9 Acute blood loss anemia D62 Multiple fractures of rib involving four or more ribs S22.49XA Transaminitis R74.01 Diabetes mellitus type 2 in obese E11.69; E66.9 Hx of deep venous thrombosis Z86.718 SDAT (senile dementia of Alzheimer's type) G30.1; F02.80 Paroxysmal atrial fibrillation I48.0 Hypertension I10 Acute kidney injury N17.9 Refusal of blood transfusions as patient is [place] Z53.1 History of hemorrhagic stroke with residual hemiparesis I69.359 Hypokalemia E87.6 Hypomagnesemia E83.42 Constipation K59.00 Constipation type: unspecified constipation type Hypoalbuminemia E88.09 (19) Constipation Constipation type: unspecified constipation type Qualified Code(s): K59.00 - Constipation, unspecified
[2022-08-07] MEDS ORDERED: FUROSEMIDE INJ 20 MG/2 ML VIAL IV ONE (12:13)
[2022-08-07] MEDS ORDERED: FOLIC ACID 1 MG in SYRINGE 9.8 ML IV ONE (12:15)
--- NOTE | 2022-08-07 13:38 | Palliative Care Progress Note ---
Date of Service August 07, 2022 Assessment & Plan (1) Palliative care by specialist: Plan: Met with pt/family. Provided overview of Palliative Medicine, a subspecialty that provides specialized medical care for people living with a serious illness by offering a focus on quality of life. Palliative Medicine is often conflated with hospice: I advised patient/family that Palliative and hospice can be partners but we are not the same. It is important to understand the difference so that we may be informed, and not afraid. Palliative Medicine works to improve QOL through reduction of symptom burden/more control over their illness, for both the patient and family. Palliative medicine clinicians are board certified, specially-trained and another member of the patient's medical care team. We often provide an extra layer of support because our care is based on the needs of the patient, not the prognosis; as such, it's appropriate at any age/advancing stage of a serious illness and can be provided along with curative treatment. Palliative Medicine clinicians are also trained in advanced communication methodologies, to facilitate complex discussions about advanced illness planning, which are needed to help assure that the treatment choices match the patient's goals, aka delivering Goal Concordant care. Finally, we discussed that hospice is a visiting nurse service that focuses on care delivered at the very end of life for patients with terminal illness, with life expectancy less than 6 month. (2) Advanced care planning/counseling discussion: Plan: Met with pt, and son at bedside. They feel hopeful he can get better; we reviewed concerns re dementia and states she does not feel he has true dementia. His recall of events leading to admission was accurate and he demo nstrated reasonable logic, although it was clear that both his and his familys ability to understand the medical complexities was more limited. Ryan agreed to a family meeting tomorrow around 3pm. 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 His short and healthcare specialist recall seemed appropriate: he was able to report in clear details events leading to admission which family confirmed. He reported work hx and life events with accuracy per family. He is AAOx3. He was able to follow conversation reasonably well and ask questions appropriately. He was not repetitive or perseverative. He may have some early dementia but I did not appreciate anything today to suggest an advanced dementia. In discussion with nursing, pt has been following commands appropriately and the only issue he seems to need frequent reminding about has been not getting out of bed because of his fracture. and patient affirm that prior to admission his PS was 0-1 and he was active in his daily life. He chose to stop driving more than short local distances about a year and a half ago when his arthritis started to become more pronounced and he was having BLE weakness. If further work up is desired, a formal neurocog eval should be done once he is recovered from this acute event. (6) Aspiration pneumonia: (7) Acute hypoxemic respiratory failure: (8) Refusal of blood transfusions as patient is Buddhist: (9) Obstructive sleep apnea: (10) Hypertensive heart disease: (11) Atrial fibrillation: Plan Patient and family perceive the diuresis and TPN planned for today are indicators he is getting better and that they understand these are intervention to help him get better. Patient then stated "well that's what you guys are doing, making me better." We had a good discussion about how medical teams are working diligently to try and improve the situation but this is not a one sided effort: sometimes therapies do not have the hoped-for effect and sometimes, in spite of therapies, we can see a patient's condition worsen. I reviewed that these are reasons why we need to have clear conversations about what he does and does not want under those varying scenarios. If things do not get better, what would be desired at that point? Would he want to keep trying to be aggressive with care, would he want to shift focus to be more about comfort, etc? They have not thought about these issues and added the perception that therapies are being offered "to make him better" and so they feel there is hope that he will improve. They do not perceive being told he will not improve or there are unfixable problems. I advised them there is always that potential arnold when complications like resp decline and aspiration + impaired swallow are noted along with growing immobility. They replied they feel hopeful he can improve with remedies beginning today (diuretic, TPN) and would like to revisit discussions of "what if he gets worse" scenarios tomorrow. I have updated nursing and primary team. Edwina Jensen DNP Clinical Director, Palliative Medicine Admission and Anticipated Discharge Date Admission Date: July 29, 2022 Subjective patient seen in follow up, and a son at bedside. patient states "I'm not feeling too bad just the leg that limits me." he denies dyspnea. he tells me he will be having medicine through his IV to help remove some extra fluid from his lungs and maybe improve breathing and also will be starting artificial feedings via TPN this evening. states she stayed the night, has been worried about patient's resp status but feels he has a strong personality and can recover. patient states he is feeling hungry and thirsty but he has not been allowed to take PO due to failing swallow studies Review of Systems Review of Systems: All systems reviewed & are unremarkable except as noted in Subjective Physical Exam Physical Exam: Elderly male, ill appearing Semi reclined in bed mild bitemp wasting +JVD, supple neck, no stridor mild inc resp effort, +high flow nasal cannula coarse rhonchi, +expiratory wheezing left upper to middle campos, none on right Abd softly distended, non tender Mild edema BLE BUE strength intact AAOx3. Following commands. CAM-ICU screen is negative Results & Data Vital Signs (Past 12 Hours) Vital Signs Temp Pulse Resp BP Pulse Ox O2 Del Method O2 Flow Rate 08/07/22 10:50 36.9 C 65 18 132/72 90 High Flow Nasal Cannula 25 08/07/22 10:16 65 20 91 High Flow Nasal Cannula 30 08/07/22 10:15 76 20 91 High Flow Nasal Cannula 30 08/07/22 08:23 37.0 C 64 16 120/68 93 Nasal Cannula 30 08/07/22 07:15 70 20 97 High Flow Nasal Cannula 30 08/07/22 07:10 70 20 97 High Flow Nasal Cannula 30 08/07/22 04:12 69 18 94 High Flow Nasal Cannula 30 08/07/22 03:48 36.8 C 72 20 118/69 94 High Flow Nasal Cannula 30 FiO2 08/07/22 10:50 08/07/22 10:16 70 08/07/22 10:15 70 08/07/22 08:23 08/07/22 07:15 80 03/15/23 07:10 80 08/07/22 04:12 80 08/07/22 03:48 80 Laboratory Results data reviewed Diagnostic Findings data reviewed PG Care Time/CCT Total # of Minutes Spent Total Time Spent: 80 Total Time Spent with Patient: Total time spent is greater than 50% in coordination of care (as documented) at patient's floor/unit and/or counseling patient: [place] [address] SUB INP/OBS CARE 3/50MIN Patient Type Established History Comprehensive Exam Comprehensive Medical Decision Making High Complexity Diagnoses Palliative care by specialist Z51.5 Advanced care planning/counseling discussion Z71.89 Closed intertrochanteric fracture of femur S72.143A 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
[2022-08-07 14:40] LABS: Influenza A virus by PCR Negative (Neg); Influenza B virus by PCR Negative (Neg); RSV by PCR Negative (Neg); SARS CoV2 RNA(COVID-19) Ceph NEGATIVE (Negative)
--- NOTE | 2022-08-07 15:36 | Pharmacy Report ---
Pharmacy PN Initial Consult - Date of Service August 07, 2022 - Scope Pharmacy has been consulted to manage parenteral nutrition orders and order appropriate labs. As part of the Nutrition Support Team guidelines, pharmacy will work in conjunction with dietary when determining the patients caloric needs. - Subjective The patient is a 82 year old M admitted on 07/29/22 23:04 for HIP FRACTURE, FALL. Patient is to receive parenteral nutrition for NPO due to aspiration, unable to place NG. Pertinent PMH: - Objective Height: 5 ft 11 in Weight: 90.2 kg Diet: NPO Vascular Access:: Peripheral Intake & Output (Last 24Hrs): Intake & Output 08/05/22 08/06/22 08/07/22 08/08/22 06:59 06:59 06:59 06:59 Intake Total 1340 / 1340 773 / 773 2548.334 / 2548.334 1007.5 / 1007.5 Output Total 900 / 900 750 / 750 751 / 751 100 / 100 Balance 440 / 440 1797.334 / 1797.334 907.5 / 907.5 Weight 89.8 kg 90.6 kg 90.2 kg 90.2 kg Laboratory Data (Last 24 Hrs):: 08/07/22 08:29 Sodium 141 Potassium 3.7 Chloride 109 H Carbon Dioxide 25 BUN 30 H Creatinine 0.86 Glucose 132 H Calcium 7.6 L Magnesium 2.0 Total Bilirubin 1.2 H AST 42 H ALT 43 Alkaline Phosphatase 142 H Albumin 2.4 L Nutrition Assessment:: Please refer to the Notes section of the EMR for the most recent oracle application architect note. - Plan For day 1 of PN administration, started PPN at 1 liter. Plan to advance to goal tomorrow. The following will be ordered: Macronutrients Amino acids 43 grams/day Dextrose 50 grams/day Lipids 0 grams/day Micronutrients Combined electrolytes [ ] mL - contains 35 mEq Na, 20 meq K, 4.5 mEq Ca, 5 mEq Mg, 35 mEq Cl, 29.5 mEq acetate per 20 mL Sodium phosphate [] MMol Sodium chloride [] mEq Sodium acetate 20 mEq Potassium phosphate 21 mMol Potassium chloride [] mEq Potassium acetate 20 mEq Magnesium sulfate 4.06 mEq Calcium gluconate [] mEq Multivitamins 10 mL Trace Elements 10 mL Additional additives: Folic Acid 1 mg Thiamine 100 mg Total volume 1040 mL to be infused over 24 hrs will provide 340 kcal/day Final osmolarity 779.5 mOsm/L (maximum for PPN is 900 mOsm/L) Labs to be ordered per PN order protocol Pharmacy will follow and adjust parenteral nutrition orders on a daily basis. Thank you.
[2022-08-07] MEDS: dexAMETHasone 6 MG in SYRINGE 0 ML IV SCH (15:54)
[2022-08-07] MEDS ORDERED: PERIPHERAL TPN IV SCH (16:00)
[2022-08-07] MEDS ORDERED: [UNRECOGNIZED DRUG - OTHER] IV SCH (16:00)
[2022-08-07] MEDS ORDERED: DEXTROSE 10% 1,000 ML IV PRN (16:00)
[2022-08-07] MEDS: LATANOPROST 0.005% OP SOLN 2.5 ML BTL OPB SCH (22:22)
[2022-08-08] MEDS: INSULIN ASPART PER UNIT CHARGE SC SCH ×4 (00:51→19:42)
[2022-08-08] MEDS: HEPARIN SOD 5,000 UNIT/0.5 ML VIAL SQ SCH ×3 (06:11→20:46)
[2022-08-08] MEDS: SODIUM CHLOR 7% 4 ML NEB NEB SCH ×2 (06:47→19:21)
[2022-08-08] MEDS: ALBUT/IPRATROP 3MG/0.5MG NEB 3 ML VIAL NEB SCH ×4 (06:47→19:21)
[2022-08-08 06:56] LABS: Hematocrit (blood only) 23.1 % (42.0-52.0); Hemoglobin 7.6 g/dl (14.0-18.0); Mean Corpuscular Hemoglobin 31.9 pg (25.0-34.0); Mean Corpuscular Hgb Conc 32.9 g/dL (32.0-36.0); Mean Corpuscular Volume 97.1 fL (80.0-100.0); Nucleated RBC # (auto) 0.05 K/uL (0-0.12); Nucleated RBC % (auto) 0.6 %; Platelet Count 245 K/uL (130-400); RDW Coefficient of Variation 14.3 % (11.5-14.5); RDW Standard Deviation 49.7 fL (36.4-46.3); Red Blood Count 2.38 M/uL (4.70-6.10); Reticulocyte % 6.4 % (0.5-2.0); Reticulocytes # 0.15 10^6/uL (0.02-0.10); White Blood Count 7.97 K/ul (4.8-10.8)
[2022-08-08 07:20] LABS: Albumin Level 2.5 gm/dl (3.4-5.0); BUN Creatinine Ratio 45.6 (10-20); Bilirubin Direct 0.3 mg/dl (0-0.2); Bilirubin,Total 1.1 mg/dl (0.2-1.0); Calcium 7.9 mg/dl (8.5-10.1); Creatinine Clr Calc Pharmacy 75.5 ml/min; Est GFR (African American) 96.2 ml/min; Magnesium 1.9 mg/dl (1.7-2.4); Phosphorus 2.6 mg/dl (2.5-4.9); Potassium 3.9 mmol/L (3.5-5.1); Total Protein 5.1 gm/dl (6.0-8.3)
[2022-08-08] MEDS: AMIODARONE 200 MG TAB PO SCH (07:27)
[2022-08-08] MEDS: carvediloL 6.25 MG TAB PO SCH ×2 (07:28→20:47)
[2022-08-08] MEDS: PANTOprazole 40 MG TAB PO SCH (07:28)
[2022-08-08] MEDS ORDERED: FOLIC ACID 1 MG in SYRINGE 9.8 ML IV SCH (09:00)
--- NOTE | 2022-08-08 09:49 | Palliative Care Progress Note ---
Date of Service August 08, 2022 Assessment & Plan (1) Palliative care by specialist: Plan: Met with pt/family. Provided overview of Palliative Medicine, a subspecialty that provides specialized medical care for people living with a serious illness by offering a focus on quality of life. Palliative Medicine is often conflated with hospice: I advised patient/family that Palliative and hospice can be partners but we are not the same. It is important to understand the difference so that we may be informed, and not afraid. Palliative Medicine works to improve QOL through reduction of symptom burden/more control over their illness, for both the patient and family. Palliative medicine clinicians are board certified, specially-trained and another member of the patient's medical care team. We often provide an extra layer of support because our care is based on the needs of the patient, not the prognosis; as such, it's appropriate at any age/advancing stage of a serious illness and can be provided along with curative treatment. Palliative Medicine clinicians are also trained in advanced communication methodologies, to facilitate complex discussions about advanced illness planning, which are needed to help assure that the treatment choices match the patient's goals, aka delivering Goal Concordant care. Finally, we discussed that hospice is a visiting nurse service that focuses on care delivered at the very end of life for patients with terminal illness, with life expectancy less than 6 month. (2) Advanced care planning/counseling discussion: Plan: A 75min face to face, detailed and extensive family meeting was held for ACP/GOC review with pt, his , his sons/dtr in laws x2 and a grand daughter. Patient appropriately introduced every member of his family. I was joined by Dr Victor.[facility] medicine attending. We reviewed that all chronic/progressive disease has a declining trajectory over time where facets of patient self-identity and independence are lost. Every acu te event leads to a further decline, resulting- many times, in a new baseline. Advised that the greatest priority is to determine what matters most to pt, then family and to develop a plan of care that is aligned with those priorities. Reviewed and discussed that primary concerns remain that his oxygen needs are high (now 13lpm NC) and he is aspirating. Nutrition is a concern - PPN is a short term solution and not without its own risk issues arnold infection/line infections. We reviewed that without ability to safely take PO and/or decision to allow permissive aspiration from a comfort/QOL perspective, then a feeding tube ie PEG) would need to be next consideration however he is currently not a safe candidate for PEG placement due to reps status. We spoke about how artificial nutrition and hydration (CURT) were originally developed to provide short-term support for patients who were acutely ill. Like other medical interventions, it should be evaluated by weighing its benefits and burdens in light of the patient's clinical circumstances and goals of care. CURT may offer benefits when administered in the setting of acute, reversible illness, or as a component of chronic disease management, when the patient can appreciate the benefits of the treatment and significant burdens are not disproportionate. For those nearing the end of life, some widely assumed benefits of CURT, such as all eviation of thirst, may be achieved by less invasive measures including good mouth care or providing ice chips. (Mik DOWD, Tone BHAGAT, Don Barron. after PEG: Results of the National Confidential Enquiry into Patient Outcome and . Gastrointest Endosc. 2008;68:223-227andMerly E, Rhina D, Kem S, et al. Parenteral hydration in patients with advanced cancer: A multicenter, double- blind, placebo-controlled randomized trial. J Clin Oncol. 2013;31:111-118.) Family inquired about options for hip fx repair. Patient states his belief that everything will improve if he can have hip surgery done. We spoke about how the window for surgical intervention is something that only the surgeons would be able to determine, as they are the ones who do the work. Dr Victor and I advised family that he will be following up with surgery for more information. Family note that pt is not processing all the information discussed and wanted assurances from providers today that we are aware of this. They were reassured his information processing issues are noted and that nursing staff also note he has some sundowning like behaviors in evenings. Although he does not appear to have severe/end stage dementia, he does have some symptoms suggestive of an earlier to perhaps moderate dementia, and these neurocognitive disorders can be accelerated in the context of acute illness/trauma. Dementia and hip fx: Hip fractures in those with advanced dementia prompts us to stop and consider the overall 1-year mortality of the patient and prognosis must be transparently d/w pt/family/designated surrogate decision maker(s). This discussion today included information on likelihood for functional recovery, patient values and preferences, advance care planning documentation, code status, and intensive care unit/re-hospitalization preferences. We spoke about how as medical teams we aim to present information about the benefits and burdens of both surgical and non-surgical management along with the best case, worst case, and the most likely scenario regarding both options. Considering the poor long-term survival, Palliative Medicine recommends initial hospice counseling for all patients with advanced dementia after a hip fracture. That being said, multiple studies have found that for correction residents with advanced dementia and hip fractures, patients who undergo surgery have lower mortality rates compared to those who do not have surgery when the surgery is done within 24 hours. A meta-analysis preformed on the timing of surgery in older patients with hip fracture found a statistically significant reduction in 1-year mortality of 18% in those operated on within 24 hours compared to over 24 hours. Repair within 24 hours is also associated with fewer postoperative complications (heart attack, pneumonia, or venous thromboembolism) at 30 days. (Jhon T, et al. Impact of timing of surgery in elderly hip fracture patients: a systematic review and meta-analysis. Scientific Reports. 2018; 8: 99990. Rolanda Molina et al. Best case/worst case: training surgeons to use a novel communication tool for high-risk acute surgical problems. J Pain Symptom Manage 2017; 4: 711-719. Norris S, et al. Less than one?third of hip fracture patients return to their prefracture level of instrumental activities of daily living in a prospective cohort study of 480 patients. Ger[employer] & Ger[employer] International. 2018; 18:8860-3671. Che Arreola AL. Survival in end-stage dementia following acute illness. LALO. 2000; 284:47-52.) Family had several questions about tube feedings and the value of the nutrition it could provide. I reviewed with them that tube feedings would not negate aspiration, he is still going to have secretions/saliva and may have reflux assocuated aspiration as well. They asked about side effects from CURT which we also discussed which can include but are not limited to reflux, bloating, nausea, fatigue, abd pain, etc. We spoke briefly about Artificial Nutrition and Dementia: Tube feeding in residents with advanced dementia does not increase survival. It does not prevent aspiration pneumonia, malnutrition or pressure ulcers. It does not reduce the risk of infections or improve functional status or comfort of the patient. (from: Sachin LM, Wicho T Percutaneous endoscopic gastrostomy does not prolong survival in patients with dementia. Arch [employer]ing Machine Operator Med 2003; 163(11):9425-5606 AND Sergio DE, Cleo CHRISTI, Brian J, Zia S, Sam RS. High short-term mortality in hospitalized patients with advanced dementia - Lack of benefit of tube feeding. Arch [employer]ing Machine Operator Med 2001; 161(4):594- 599.) Simple strategies involving hands-on care by well-trained staff such as massage, oral hygiene, changes in diet, and hand-feeding -- can prevent infection and manage feeding problems without resort to tube-feeding. Tube feeding does not prevent aspiration pneumonia and might actually increase its incidence, and does not prevent the consequences of malnutrition Hand feeding can be provided until the beginning of the dying process when all physiological processes shut down, note that cognitively intact cancer patients indicate that dying residents do not feel hunger and thirst. Voluntary refusal of food and liquids is often initiated by hospice patients and does not result in discomfort Patient was not able to follow this lengthy and detailed conversation. He would grasp some concepts: "So I'm between a rock and a soft place, this swallow thing and my lungs, it's not good." and then also state "I just need to get this leg fixed then everything will get better and I can go home. I want to go home." I tried to ask patient if pursuing CURT would be agreeable to him and he vacillated. His family seemed to be leaning towards wanting him to have tube feedings. noted he was not understanding everything and felt he could not make a decision. We agreed with her and advised this would need to be a decision that comes from her but reflective of what she knows her 's wishes to be; I encouraged them not to make a decision right now but rather take some time to talk about it as a family tonight, away from bedside. I asked Mrs. Jones and family that when they speak later, to please consider several what-if scenarios: if there is a surgery that can be offered, would a feeding tube be reasonable with plan for SNF rehab even though we know he may still aspirate? If no surgery can be done, would this change their opinion on wanting a feeding tube and would a plan of care that shifts to be about pt comfort/PO for pleasure with permissive aspiration be more reasonable and in alignment with what patient may want for himself as QOL? If he would not want longer term SNF placement with rehab and peg, would moving to comfort care and permissive aspiration be more appropriate? What changes for their opinions if hip cannot be fixed? What would change in regards to the aspiration issues? We reviewed this may not get better because he has several risk factors for it tot worsen: prior stroke, advanced age and some dementia changes. I offered to follow up tomorrow afternoon and they were appreciative. They had questions about his labs which were answered and reviewed. They asked about when they will know if surgery can offer a repair to the hip and were advised Dr. Victor is waiting for that input. (3) Aspiration into airway: Plan: see #2 above (4) Aspiration pneumonia: Plan: A repeat swallow was done at bedside today and unfortunately pt continues to demonstrate aspiration. See [facility] discussion above. (5) Acute hypoxemic respiratory failure: Plan: High flow oxygen reduced and pt now on nasal cannula 13 lpm however he continues to aspirate even small amounts with sputtering and coughing. 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 Awaiting input from surgery regarding what options are available for pt and what outcomes are associated with each of those orthopedic options? resp status slowly better but still prohibitive for surgery and even feeding tube placement, chest exam not dramatically different from yesterday blood counts improving, last venofer 08/07/22 extensive support and reassurance provided. Thank you for allowing us to participate in the ongoing care of this patient. Please don't hesitate to call or page with any additional concerns. Dr. Edwina Jensen DNP Director, Palliative Care Edwina Jensen DNP Clinical Director, Palliative Medicine Admission and Anticipated Discharge Date Admission Date: July 29, 2022 Subjective palliative med follow up resp panel neg hehas completed full course of Zosyn this admission last venofer 08/07/22, counts slowly improving off high flow and now 15lpm NC with SpO2 in the 90s had a few doses of IV Lasix, not much output; another dose given today continues to have a wet sounding bronchitic cough with occ anderson sputum PPN infusing though left IJ Speech revisited: no change from prior, noted pt likely aspirating his saliva. Patient and family continue to express desire for allowing PO intake Review of Systems Review of Systems: All systems reviewed & are unremarkable except as noted in Subjective Physical Exam Physical Exam: Elderly male, ill appearing Semi reclined in bed mild bitemp wasting Left IJ catheter; +supple neck, no stridor mild inc resp effort, +high flow nasal cannula coarse rhonchi, no expiratory wheezing noted today in left upper to middle campos, none on right Abd softly distended, non tender Mild edema BLE BUE strength intact AAOx3. Following commands. he is anxious and perseverating on getting better. it is noted today he tends to partially repeat the end sentence of what clinicians state Results & Data Vital Signs (Past 12 Hours) Vital Signs Temp Pulse Pulse Resp BP Pulse Ox O2 Del Method 08/08/22 09:25 70 08/08/22 07:24 37.1 C 70 21 167/70 H 93 High Flow Nasal Cannula 08/08/22 06:50 73 18 94 Nasal Cannula 08/08/22 03:24 37 C 64 16 136/72 94 High Flow Nasal Cannula 08/07/22 22:00 High Flow Nasal Cannula 08/07/22 22:04 68 08/07/22 23:01 37.1 C 65 16 135/76 95 High Flow Nasal Cannula O2 Flow Rate FiO2 08/08/22 09:25 08/08/22 07:24 15 08/08/22 06:50 15 08/08/22 03:24 15 08/07/22 22:00 15 40 08/07/22 22:04 08/07/22 23:01 15 Laboratory Results resp viral panel neg for covid, flu, rsv PG Care Time/CCT Total # of Minutes Spent Total Time Spent: 130 Total Time Spent with Patient: Total time spent is greater than 50% in coordination of care (as documented) at patient's floor/unit and/or counseling patient: I spent 130 minutes overall addressing this case: 15 in medical data review/discussion with referring provider(s) and/or preparation for the visit 25 in direct interaction with the patient 75 Advance Care Planning/Goals of Care discussions as detailed above in note (must be >16min) 10 in subsequent review and synthesis of assessment and plan 5 in communicating with other providers regarding the patient's case: primary team Prolonged Care Time Prolonged Care Time: Yes Advanced Care Planning 44103 Advanced Care Planning 30 Min 37662 Advanced Care Planning Additional 30 Min [place] [address] SUB INP/OBS CARE 3/50MIN Patient Type Established History Comprehensive Exam Comprehensive Medical Decision Making High Complexity Diagnoses Palliative care by specialist Z51.5 Advanced care planning/counseling discussion Z71.89 Aspiration into airway T17.908A Aspiration pneumonia J69.0 Acute hypoxemic respiratory failure J96.01 Closed intertrochanteric fracture of femur S72.143A 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 M80.051A Refusal of blood transfusions as patient is Jewish Z53.1 Obstructive sleep apnea G47.33 Hypertensive heart disease I11.9 Atrial fibrillation I48.2 Atrial fibrillation type: chronic Additional Codes Advanced Care Planning - 01759 Advanced Care Planning 30 Min: 70339 Advanced Care Planning 30 Min ([id number]) Advanced Care Planning - 75380 Advanced Care Planning Additional 30 Min: 78392 Advanced Care Planning Additional 30 Min ([id number]) Prolonged Care Time - Prolonged Care Time: Yes ([id number]) (11) Atrial fibrillation Atrial fibrillation type: chronic Qualified Code(s): I48.2 - Chronic atrial fibrillation
--- NOTE | 2022-08-08 13:27 | Pharmacy Report ---
PHA: Parenteral Nutrition Con - Date of Service August 08, 2022 - Scope Pharmacy was consulted on 08/07/22 to manage parenteral nutrition orders for this patient. - Subjective The patient is currently on day 2 of peripheral parenteral nutrition for NPO, dysphagia - Objective Height: 5 ft 11 in Weight: 90.2 kg Diet: NPO Vascular Access:: Peripheral Intake & Output (24hrs):: Intake & Output 08/06/22 08/07/22 08/08/22 08/09/22 06:59 06:59 06:59 06:59 Intake Total 773 / 773 2548.334 / 2548.334 1007.5 / 1007.5 Output Total 750 / 750 751 / 751 400 / 400 Balance 1797.334 / 1797.334 607.5 / 607.5 Weight 90.6 kg 90.2 kg 90.2 kg Laboratory Data (Last 24 Hr):: 08/08/22 05:33 Sodium 143 Potassium 3.9 Chloride 109 H Carbon Dioxide 28 BUN 36 H Creatinine 0.79 Glucose 147 H Calcium 7.9 L Phosphorus 2.6 Magnesium 1.9 Total Bilirubin 1.1 H AST 40 H ALT 43 Alkaline Phosphatase 147 H Albumin 2.5 L Nutrition Assessment:: Please refer to the Notes section of the EMR for the most recent slp teacher note. - Plan For day 2 of PN administration, advanced calories to goal. 2 liters of PPN ordered. Holding Lipids. The following will be ordered: Macronutrients Amino acids 85 grams/day Dextrose 100 grams/day Lipids [] grams/day Micronutrients Combined electrolytes [] mL - contains 35 mEq Na, 20 meq K, 4.5 mEq Ca, 5 mEq Mg, 35 mEq Cl, 29.5 mEq acetate per 20 mL Sodium phosphate [] MMol Sodium chloride [] mEq Sodium acetate 20 mEq Potassium phosphate 21 mMol Potassium chloride [] mEq Potassium acetate 20 mEq Magnesium sulfate 8.12 mEq Calcium gluconate [] mEq Multivitamins 10 mL Trace Elements 1 mL Additional additives: Thiamine 100 mg Folic Acid 1 mg Famotidine 20 mg Total volume 2043 mL to be infused over 24 hrs will provide 680 kcal/day Final osmolarity 729 mOsm/L (maximum for PPN is 900 mOsm/L) Labs, as indicated, will be ordered per protocol Pharmacy will continue to follow and adjust parenteral nutrition orders on a daily basis. Thank you for allowing us to participate in the care of this patient.
[2022-08-08] MEDS ORDERED: FUROSEMIDE INJ 20 MG/2 ML VIAL IV ONE (13:55)
[2022-08-08] MEDS: dexAMETHasone 6 MG in SYRINGE 0 ML IV SCH (14:44)
[2022-08-08] MEDS ORDERED: PERIPHERAL TPN IV SCH (16:00)
[2022-08-08] MEDS ORDERED: [UNRECOGNIZED DRUG - OTHER] IV SCH (16:00)
[2022-08-08] MEDS: LATANOPROST 0.005% OP SOLN 2.5 ML BTL OPB SCH (20:47)
--- NOTE | 2022-08-08 20:52 | Hospitalist Progress Note ---
Date of Service August 08, 2022 Assessment & Plan (1) Acute hypoxemic respiratory failure: Plan: severe- 2nd to b/l pneumonia (RUL, LLL, etc) - likely aspiration. s/p code blue on 07/31/2022. intubated by ICU attending at that time - noted to have purulent secretions in the epiglottis & vocal cords at time of intubation. transferred to ICU. s/p bronch - cultures from bronch negative. extubated 08/01/22. on high-flow NC since although able to stop Vapotherm this week and not on wall- mounted HF at 13 L. s/p 7-day course of IV zosyn; abx now d/c. procal today minimally elevated. MRSA screen negative - MRSA coverage has been deferred during the stay. gave lasix 20mg IV x 1 yesterday; will repeat today; he is 5+ liters positive since admission and has mild JVD. cont steroids, bronchodilators, etc. 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 orthopedics consulted early in stay but patient has been too critically ill to pursue surgical correction. remains bedrest. cont pain control. stay complicated by #1, aspiration pneumonia, severe acute blood loss anemia, dysphagia, etc. I spoke with Dr Feliz today from orthopedics - he states that the window for operative intervention for the hip is about 2 weeks post-injury. Thus, we are nearing the time when operative intervention would be no longer possible. I have asked Dr Feliz to potentially speak with family regarding this issue. Nonoperative management would obviously lead to a potentially much different outcome. (3) Aspiration pneumonia: Plan: s/p full 7 day course of zosyn. clinically stable, slowly improving - as evidence by weaning of O2 requirements over the last 4-5 days. cont duonebs qid. cont saline nebs. cont dexamethasone 6mg IV daily - day #3 today. cont pulmonary toilet. gentle diuresis again today (lasix 20mg IV x 1). repeat COVID testing neg. Flu/RSV testing neg. despite cxr findings from 08/07 his overall clinical status is one of slow improvement. procal noted. (4) Dysphagia: Plan: remains npo. continues to fall bedside swallow evals with thin liquids and thickened liquids. I spoke personally with Ms Stevenson from speech. still too ill to pursue video swallow, and the results of such would likely not change the fact that his risk of aspiration remains VERY high. in eva of PO or enteral nutrition will cont PPN. PICC line to be placed; once in we can transition to TPN cautiously. family counseled that his LFTs are mildly high and TPN can worsen such. family also counseled that TPN is meant to be short-term and a "bridge" to see if he can have a meaningful recovery over the next 7-10 days. (5) Hypotension: Plan: 2nd to #6, etc. Did require pressors following his code blue early in the stay. Low BP now resolved. Likely to need his beta navin - at minimum - resumed. (6) Acute blood loss anemia: Plan: 2nd to bleeding into right hip/buttock/thigh from hip fracture, numerous blood draws since admission, etc. no overt GI bleeding. [employer] precludes any blood transfusion. Hb remains low but acceptable. Hb is >7 today and retic count is 6% thus Fe replacement has helped. he is s/p 3 doses of IV venofer this admission. recheck CBC in am. vit B12 level wnl. folate level low-normal - folic acid 1mg IV daily via parenteral nutrition. (7) Multiple fractures of rib involving four or more ribs: Plan: Acute, right-sided ribs #3-7. Minimal to no pain from such. Denies pleuritic pain. (8) Transaminitis: Plan: Exact cause uncertain but likely reactive from his overall illness. Repeat levels remain mildly high but stable. watch carefully daily while on PPN / TPN. (9) Diabetes mellitus type 2 in obese: Plan: Last a1c 6.1 03/2022. Holding home metformin. Cont novolog SSI. With steroids may require basal insulin as well but thus far BSGs stable. 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 Was Supratherapeutic on coumadin with INR of 3.4 on admission. Reversed s/p vitamin K. Has not been on any anticoagulation due to acute blood loss anemia. However, risk of VTE is very high due to critical illness, bed-bound status, and prior VTE history. As H/H are stable started heparin 5000 TID but ideally higher doses should be used given the VTE risk. If stable overnight will start heparin drip tomorrow or lovenox 1mg/kg BID. (11) SDAT (senile dementia of Alzheimer's type): Plan: Memantine 5mg BID. Periods of confusion (likely hospital psychosis/metabolic encephalopathy) noted here. (12) Paroxysmal atrial fibrillation: Plan: Remains in NSR. Was on amiodarone drip early in the stay --> converted back to oral amiodarone on August 03 at 200mg/day. However, he is now a strict NPO status. If he remains NPO long period of time can always placed back on IV amio if needed. Defer for now. Echo this admission - EF 60-65%, grade 2 diastolic dysfunction, mild , pulm HTN. See above Re: anticoagulation. (13) Hypertension: Plan: Previously controlled with lisinopril, coreg, amlodipine. meds on hold due to NPO status. May need to start IV meds soon. (14) Acute kidney injury: Plan: Peak Cr 2.2 Now <1 resolved BMP am (15) Refusal of blood transfusions as patient is [employer]: (16) History of hemorrhagic stroke with residual hemiparesis: Plan: right-sided ICH fall 2021 with residual hemiparesis on left. most recent head CT without hemorrhage. (17) Hypokalemia: Plan: replaced resolved (18) Hypomagnesemia: Plan: replaced resolved (19) Constipation: Plan: resolved (20) Hypoalbuminemia: Plan: albumin is <2.5 poor candidate for enteral feedings via NG tube not a candidate at this time for PEG placement due to respiratory status cont PPN without lipids check phos/mag/bmp/lfts in am watch volume status carefully PICC line placement today - then ultimately TPN Plan total time today on VERY COMPLEX care coordination -- 2 bedside visits, long family discussion as documented, PICC discussion, etc -- 80 minutes Admission and Anticipated Discharge Date Admission Date: July 29, 2022 Subjective 2 visits to pt's bedside today first was during AM rounds during AM rounds his sister was present pt did not offer any new complaints - kept stating "I just want to get up. I want to get better." denied pain in right hip unless he was moving about in the bed. fortunately he has been able to spontaneously void and a condom catheter is now in place. he continues with cough which remains productive. denies dyspnea at rest but admits he is wheezing. denies pain in his chest. 2nd visit was during the late afternoon. I attended a family meeting in which the pt's , 2 sons, and numerous other family members were present. Dr Jensen from palliative care was also present. during the 2nd visit I was personally present at bedside for about 65 minutes (1545 to 1650) we discussed current medical status, current problems, ongoing/recurrent failed bedside swallow evals, concern he is aspirating oral secretions, options for nutrition (limited -- really just PPN/TPN candidate), need to have central line removed, anemia, right hip fracture and whether he is still an operative candidate, and options for care. we discussed 3 options for care - aggressive (all routine care including PICC line placement for TPN) vs "middle of the ground" approach (continuing current care for a few more days but not escalating care -- not pursuing PICC line, etc) vs shifting to comfort care approach. All present including the patient wants to "do everything" with the goal of potentially being an operative candidate for the right hip fracture, ultimately being able to d/c from hospital and attend rehab, etc. I was asked if he was a candidate for a temporary or permanent feeding tube. He is not a candidate for the latter - too sick from pulmonary standpoint to be sedated for PEG placement. Further, placing an NG tube is likely not possible given his high-flow NC needs. He also would likely not tolerate an NG tube. We reviewed his cxr findings and I showed them his most recent films. discussed that even if his hospital course is optimized and he does make steady improvement that the road ahead will be very long & challenging, and that the issue of dysphagia & aspiration presents a major barrier to full, meaningful recovery. again confirmed with pt & his family that they wish to pursue ongoing routine/aggressive care (short of full code status). we discussed PICC line placement; written consent obtained, conversation witnessed by nursing. Review of Systems Review of Systems: gen - no fevers; he voices he is hungry cv - no chest pain pulm - cough/congestion/wheezing/sputum/dyspnea (at times) GI - no abd pain, nausea or emesis psych - sleeping "ok"; periods of confusion noted by staff musculo - right hip pain with any movement Physical Exam Physical Exam: gen - poor insight into our conversation regarding the complexity of his medical situation; ongoing cough; he looks dyspneic at times neck - mild JVD still present mouth - no thrush heart - RRR, s1 s2, no murmur lungs - wheezes b/l unchanged, decreased BS R apex and L base; mild tachypnea; mild retractions; crackles b/l abd - soft NT ND BS+ skin - generalized pallor; ecchymoses right groin extending into the scrotal region unchanged ext - trace peripheral edema b/l, pulses 2+ b/l feet; left IJ CVC present musculo - right leg mildly shortened and externally rotated - no change; SCDs in place psych - oriented to person/place; recall for past events intact; recall for recent events fair; poor insight into medical complexity Results & Data Results & Data Vital Signs (Past 12 Hours) Vital Signs Temp Pulse Pulse Resp BP Pulse Ox O2 Del Method 08/08/22 19:23 78 20 95 Nasal Cannula 08/08/22 17:11 37 C 74 19 168/74 H 90 Nasal Cannula 08/08/22 15:33 74 08/08/22 14:55 74 18 91 Nasal Cannula 08/08/22 11:37 36.9 C 69 20 152/72 H 94 High Flow Nasal Cannula 08/08/22 11:13 71 18 94 Nasal Cannula 08/08/22 09:33 Nasal Cannula 08/08/22 09:25 70 O2 Flow Rate 08/08/22 19:23 15 08/08/22 17:11 13 08/08/22 15:33 08/08/22 14:55 13 08/08/22 11:37 15 08/08/22 11:13 15 08/08/22 09:33 15 08/08/22 09:25 Laboratory Results Laboratory Results - last 24 hr 08/08/22 08/08/22 08/08/22 00:36 05:33 05:33 WBC RBC Hgb Hct MCV MCH MCHC RDW Std Deviation RDW Coeff of Mickey Plt Count MPV Reticulocyte % (Auto) Reticulocyte # Absolute Nucleated RBC Nucleated RBC % (auto) Sodium 143 Potassium 3.9 Chloride 109 H Carbon Dioxide 28 Anion Gap 6 BUN 36 H Creatinine 0.79 Est Cr Clr Drug Dosing 75.5 Est GFR ( Amer) 96.2 Est GFR (Non-Af Amer) 83.0 BUN/Creatinine Ratio 45.6 H Glucose 147 H POC Glucose 173 H Calcium 7.9 L Phosphorus 2.6 Magnesium 1.9 Total Bilirubin 1.1 H Direct Bilirubin 0.3 H AST 40 H ALT 43 Alkaline Phosphatase 147 H Total Protein 5.1 L Albumin 2.5 L Procalcitonin 0.56 H 08/08/22 08/08/22 08/08/22 05:33 06:09 12:04 WBC 7.97 RBC 2.38 L Hgb 7.6 L Hct 23.1 L MCV 97.1 MCH 31.9 MCHC 32.9 RDW Std Deviation 49.7 H RDW Coeff of Mickey 14.3 Plt Count 245 MPV 10.0 Reticulocyte % (Auto) 6.4 H Reticulocyte # 0.15 H Absolute Nucleated RBC 0.05 Nucleated RBC % (auto) 0.6 Sodium Potassium Chloride Carbon Dioxide Anion Gap BUN Creatinine Est Cr Clr Drug Dosing Est GFR ( Amer) Est GFR (Non-Af Amer) BUN/Creatinine Ratio Glucose POC Glucose 154 H 150 H Calcium Phosphorus Magnesium Total Bilirubin Direct Bilirubin AST ALT Alkaline Phosphatase Total Protein Albumin Procalcitonin 08/08/22 18:45 WBC RBC Hgb Hct MCV MCH MCHC RDW Std Deviation RDW Coeff of Mickey Plt Count MPV Reticulocyte % (Auto) Reticulocyte # Absolute Nucleated RBC Nucleated RBC % (auto) Sodium Potassium Chloride Carbon Dioxide Anion Gap BUN Creatinine Est Cr Clr Drug Dosing Est GFR ( Amer) Est GFR (Non-Af Amer) BUN/Creatinine Ratio Glucose POC Glucose 182 H Calcium Phosphorus Magnesium Total Bilirubin Direct Bilirubin AST ALT Alkaline Phosphatase Total Protein Albumin Procalcitonin PG Care Time/CCT Total # of Minutes Spent Total Time Spent with Patient: Total time spent is greater than 50% in coordination of care (as documented) at patient's floor/unit and/or counseling patient: Prolonged Care Time Prolonged Care Time: Yes Total Prolonged Care Time: 80 Coding Level of Care Code 29507 SUB INP/OBS CARE 3/50MIN (25 - SIGNIFICANT, SEPARATELY IDENTIFIABLE ) Diagnoses Acute hypoxemic respiratory failure J96.01 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 M80.051A Aspiration pneumonia J69.0 Dysphagia R13.10 Hypotension I95.9 Acute blood loss anemia D62 Multiple fractures of rib involving four or more ribs S22.49XA Transaminitis R74.01 Diabetes mellitus type 2 in obese E11.69; E66.9 Hx of deep venous thrombosis Z86.718 SDAT (senile dementia of Alzheimer's type) G30.1; F02.80 Paroxysmal atrial fibrillation I48.0 Hypertension I10 Acute kidney injury N17.9 Refusal of blood transfusions as patient is [employer] Z53.1 History of hemorrhagic stroke with residual hemiparesis I69.359 Hypokalemia E87.6 Hypomagnesemia E83.42 Constipation K59.00 Constipation type: unspecified constipation type Hypoalbuminemia E88.09 Additional Codes Prolonged Care Time - Prolonged Care Time: Yes ([id number]) (19) Constipation Constipation type: unspecified constipation type Qualified Code(s): K59.00 - Constipation, unspecified
[2022-08-09] MEDS: INSULIN ASPART PER UNIT CHARGE SC SCH ×4 (00:43→18:25)
[2022-08-09] MEDS: ALBUT/IPRATROP 3MG/0.5MG NEB 3 ML VIAL NEB SCH ×4 (05:33→19:53)
[2022-08-09] MEDS ORDERED: METOPROLOL TARTRATE 1 MG/ML VIAL IV SCH (06:00)
[2022-08-09] MEDS: HEPARIN SOD 5,000 UNIT/0.5 ML VIAL SQ SCH (06:46)
[2022-08-09] MEDS: AMIODARONE 200 MG TAB PO SCH (07:24)
[2022-08-09] MEDS: carvediloL 6.25 MG TAB PO SCH (07:24)
[2022-08-09] MEDS: SODIUM CHLOR 7% 4 ML NEB NEB SCH ×2 (07:45→19:53)
[2022-08-09 08:14] LABS: Hematocrit (blood only) 24.1 % (42.0-52.0); Hemoglobin 7.9 g/dl (14.0-18.0); Mean Corpuscular Hemoglobin 31.9 pg (25.0-34.0); Mean Corpuscular Hgb Conc 32.8 g/dL (32.0-36.0); Mean Corpuscular Volume 97.2 fL (80.0-100.0); Mean Platelet Volume 9.6 fL (9.4-12.4); Nucleated RBC # (auto) 0.08 K/uL (0-0.12); Nucleated RBC % (auto) 0.8 %; Platelet Count 255 K/uL (130-400); RDW Coefficient of Variation 14.4 % (11.5-14.5); RDW Standard Deviation 49.7 fL (36.4-46.3); Red Blood Count 2.48 M/uL (4.70-6.10); White Blood Count 10.42 K/ul (4.8-10.8)
[2022-08-09 08:30] LABS: Albumin Level 2.6 gm/dl (3.4-5.0); BUN Creatinine Ratio 59.5 (10-20); Bilirubin Direct 0.4 mg/dl (0-0.2); Bilirubin,Total 1.1 mg/dl (0.2-1.0); Calcium 7.9 mg/dl (8.5-10.1); Creatinine Clr Calc Pharmacy 80.6 ml/min; Est GFR (African American) 98.9 ml/min; Est GFR (Non-African American) 85.3 ml/min; Magnesium 1.8 mg/dl (1.7-2.4); Phosphorus 2.2 mg/dl (2.5-4.9); Potassium 4.1 mmol/L (3.5-5.1); Total Protein 5.2 gm/dl (6.0-8.3)
[2022-08-09] MEDS: hydrALAZINE HCL 20 MG/ML VIAL IV SCH ×2 (08:40→15:38)
[2022-08-09] MEDS ORDERED: FUROSEMIDE INJ 20 MG/2 ML VIAL IV ONE (09:21)
[2022-08-09] MEDS ORDERED: Heparin IV Adult Wt-Based Standard *NO* Bolus Protocol IV STA (09:40)
[2022-08-09] MEDS: HEPARIN SODIUM/DEXTROSE 25,000 UNITS/500 ML BAG IV SCH (10:52)
[2022-08-09 11:28] LABS: Partial Thromboplastin Ratio 0.9; Prothrombin Time 11.1 Seconds (9.0-12.0)
--- NOTE | 2022-08-09 12:24 | XRay Report ---
XR chest 1V portable HISTORY: 82 years-old Male resp failure, worsening hypoxia acute respiratory failure COMPARISON: 08/07/2022 TECHNIQUE: AP view of the chest FINDINGS: Interval removal of the left IJ central venous catheter. Status post placement of a right-sided PICC with distal tip in the expected location of the mid SVC. Cardiac mediastinal and hilar silhouettes ar e unchanged. Small left greater than right pleural effusions. Pulmonary vascular congestion. Multifoc al intermixed interstitial and alveolar opacities are redemonstrated which have mildly improved. Dege nerative changes of the shoulders and spine. IMPRESSION: 1. Cardiomegaly with mild pulmonary edema. 2. Patchy bilateral airspace opacities are redemonstrated, mildly improved from the previous study. 3. Status post placement of a right-sided PICC. No pneumothorax. ACT 112: Negative or not required by law. The above report was generated using voice recognition software. It may contain grammatical, syntax o r spelling errors. Electronically signed by: Vipul Larios M.D. 08/09/2022 12:23 PM
--- NOTE | 2022-08-09 13:47 | Pharmacy Report ---
PHA: Parenteral Nutrition Con - Date of Service August 09, 2022 - Scope Pharmacy was consulted on 08/07/22 to manage parenteral nutrition orders for this patient. - Subjective The patient is currently on day 3 of parenteral nutrition for prolonged NPO secondary to aspiration risk/dysphagia. - Objective Height: 5 ft 11 in Weight: 88 kg Diet: NPO Intake & Output (24hrs):: Intake & Output 08/07/22 08/08/22 08/09/22 08/10/22 06:59 06:59 06:59 06:59 Intake Total 2548.334 / 2548.334 1007.5 / 1007.5 1040 / 1040 Output Total 751 / 751 400 / 400 1550 / 1550 Balance 1797.334 / 1797.334 607.5 / 607.5 -510 / -510 Weight 90.2 kg 90.2 kg 88 kg 88 kg Laboratory Data (Last 24 Hr):: 08/09/22 07:45 Sodium 141 Potassium 4.1 Chloride 108 H Carbon Dioxide 28 BUN 44 H Creatinine 0.74 Glucose 170 H Calcium 7.9 L Phosphorus 2.2 L Magnesium 1.8 Total Bilirubin 1.1 H AST 31 ALT 38 Alkaline Phosphatase 148 H Albumin 2.6 L Nutrition Assessment:: Please refer to the Notes section of the EMR for the most recent quality consultant note. - Assessment * PICC line placed - will transition to central TPN administration today, lipids to be added today as well * Electrolytes relatively stable * Favoring acetate to chloride given hyperchloremia * Hypophosphatemia - will increase in PN today, discussed with hospitalist and will hold off on additional repletion outside of TPN given volume- status concerns * Furosemide 20 mg IV x 1 received today - Plan For day 3 of PN administration, the following will be ordered: Macronutrients Amino acids 106 grams/day Dextrose 185 grams/day Lipids 50 grams/day Micronutrients Sodium acetate 60 mEq Potassium phosphate 30 mMol Potassium acetate 20 mEq Magnesium sulfate 12.18 mEq Multivitamins 10 mL Trace Elements 1 mL Additional additives: thiamine 100 mg, folic acid 1 mg, famotidine 20 mg Total volume 1387 mL to be infused over 24 hrs will provide 1551 kcal/day Labs, as indicated, will be ordered per protocol Pharmacy will continue to follow and adjust parenteral nutrition orders on a daily basis. Thank you for allowing us to participate in the care of this patient.
[2022-08-09] MEDS ORDERED: FUROSEMIDE 40 MG/4 ML VIAL IV ONE (15:07)
[2022-08-09] MEDS: dexAMETHasone 6 MG in SYRINGE 0 ML IV SCH (15:37)
[2022-08-09] MEDS ORDERED: CENTRAL TPN IV SCH (16:00)
[2022-08-09] MEDS ORDERED: [UNRECOGNIZED DRUG - OTHER] IV SCH (16:00)
[2022-08-09] MEDS ORDERED: CLINOLIPID 20% IV FAT EMULSION 250 ML IV SCH (16:00)
[2022-08-09] MEDS ORDERED: MoRPHine SULFATE 2 MG/ML CARP IV STA (16:09)
[2022-08-09 17:49] LABS: Partial Thromboplastin Ratio 4.1
[2022-08-09 17:57] LABS: Partial Thromboplastin Time 112.1 Seconds (21.0-31.0)
--- NOTE | 2022-08-09 18:09 | Progress Notes ---
DATE OF SERVICE: 08/09/2022 SUBJECTIVE: An 82-year-old gentleman now about 11 days out from a right intertrochanteric hip fractu re. The patient has got multiple medical comorbidities. Our plan was to fix this about 9 days ago, but he went into respiratory arrest and had to be intubated. He has a really tough hospital course s scottie then. He has had multiple medical issues and a suboptimal medical condition. He does not repor t much in the way of pain as long as he is not moving much. OBJECTIVE: VITAL SIGNS: Temperature 37.0. Vital signs are stable. PHYSICAL EXAMINATION: GENERAL: Shows a pleasant, elderly male. He is sitting up in bed. He is awake, alert and responds reasonably appropriately. EXTREMITIES: Examination of the right leg reveals it to be shortened and externally rotated. He is neurologically intact. LABORATORY DATA: Hemoglobin 7.9. Hematocrit 24.1. ASSESSMENT: An 82-year-old gentleman now about 11 days out from a right intertrochanteric fracture w ith multiple medical comorbidities. He is at very high risk and not medically optimized. In ballad health, he is a [employer] and cannot have blood products. In light of the situation and the duration of time from injury, his fracture would likely be started to heal together and at least with some fibrous tissue. I do not think he is going to be medically r lacey for surgery any time in the next several days and as a result, I think it is best to treat this nonoperatively. PLAN: I discussed the treatment and options with the family today and friends. We had a long fairly significant discussion. I would recommend nonoperative management. I would give this a couple more days and then start to mobilize him maybe early next week to a bed to a chair. It would help maybe his respiratory status as well. He can begin weightbearing as tolerated using pain as his guide. Mo st likely, this fracture will heal. I will be shortened and externally rotated, but it is likely he will probably be able to even walk on this if he recovers medically. I answered all of their questio ns. I would be happy to answer any further questions as needed. The plan will be to give him throug h the week and then start mobilizing next week. Weightbear as tolerated. Any orthopedic questions c an be directed to me at [phone]. Job ID: [id number]
[2022-08-09] MEDS ORDERED: MAGNESIUM SULFATE / D5W 1 GM/100 ML BAG IV ONE (18:26)
--- NOTE | 2022-08-09 18:32 | Hospitalist Progress Note ---
Date of Service August 09, 2022 Assessment & Plan (1) Atrial fibrillation with RVR: Plan: move patient to PCU mag sulfate 1gm IV x 1 (most recent mag level 1.7) K level this am was 4.1 start cardizem infusion with a bolus, titrate per protocol if rate control proves challenging then simply d/c cardizem and switch to amiodarone infusion he has required amiodarone in the past as well as multiple episodes of elective cardioversion per records recent TSH wnl recent echo with preserved EF (08/01/22) but grade 2 diastolic dysfunction - see below (2) Acute on chronic diastolic CHF (congestive heart failure): Plan: s/p diuresis yesterday, but overall respiratory status worse today with escalating O2 requirements again. clinically & radiographically volume overloaded. s/p 20mg lasix IV this am, and gave additional 40mg of lasix this afternoon. he had copious diuresis with the latter. some of the volume overload was precipitated by the recent institution of PPN then TPN. TPN placed on hold. control the a.fib. likely to need additional diuresis in the am. (3) Acute hypoxemic respiratory failure: Plan: severe- 2nd to b/l aspiration pneumonia (RUL, LLL, etc) and now #2. worse today. s/p code blue on 07/31/2022. intubated by ICU attending at that time - noted to have purulent secretions in the epiglottis & vocal cords at time of intubation. transferred to ICU. s/p bronch - cultures from bronch negative. extubated 08/01/22. on high-flow NC in some capacity since extubation 08/01/22 with varying O2 requirements. s/p full 7-day course of IV zosyn. treat #1 and #2. (4) Aspiration pneumonia: Plan: s/p full 7 day course of zosyn. had been improving from pulmonary standpoint, then developed volume overload as above. cont duonebs qid. cont saline nebs. cont dexamethasone 6mg IV daily - day #4 today. cont pulmonary toilet.. repeat COVID testing neg. Flu/RSV testing neg. recent procal noted. (5) 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: Plan: s/p fall on day of presentation. orthopedics consulted early in stay but patient has been too critically ill to pursue surgical correction. remains bedrest. cont pain control. stay complicated by #1, #2, #3, #4 and severe acute blood loss anemia along with dysphagia. Dr Feliz spoke with pt and his family today; at this point Mr Jones is NOT an operative candidate. R hip fracture will be allowed to heal nonoperatively. Appreciate Dr Feliz speaking with his family. (6) Dysphagia: Plan: remains npo. continues to fall bedside swallow evals with thin liquids and thickened liquids. I spoke personally with Ms Stevenson from speech. still too ill to pursue video swallow, and the results of such would likely not change the fact that his risk of aspiration remains VERY high. in eva of PO or enteral nutrition we initiated PPN, then placed PICC to pursue TPN. unfortunately he is now volume overloaded and thus placing TPN on hold. LFTs remain stable on TPN/PPN. (7) Hypotension: Plan: Did require pressors following his code blue early in the stay. Low BP now resolved. BPs now high. (8) Acute blood loss anemia: Plan: 2nd to bleeding into right hip/buttock/thigh from hip fracture, numerous blood draws since admission, etc. no overt GI bleeding. Taoism jameson precludes any blood transfusion. Hb remains low but acceptable and Hb has been slowly rising with Fe supplementation. Hb is nearly 8 today and retic count is 6% thus Fe replacement has helped. he is s/p 3 doses of IV venofer this admission. recheck CBC in am. vit B12 level wnl. folate level low-normal - folic acid 1mg IV daily. (9) Multiple fractures of rib involving four or more ribs: Plan: Acute, right-sided ribs #3-7. Minimal to no pain from such. No issues. No complicating pneumothorax. (10) Transaminitis: Plan: Exact cause uncertain but likely reactive from his overall illness. can't exclude passive congestion from #2. Repeat levels remain mildly high but stable. (11) Diabetes mellitus type 2 in obese: Plan: Last a1c 6.1 03/2022. Holding home metformin. Cont novolog SSI. Adjusted / tightened the dose today. With steroids may require basal insulin as well but thus far BSGs acceptable. 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 Was Supratherapeutic on coumadin with INR of 3.4 on admission. Reversed s/p vitamin K. Has not been on any anticoagulation due to acute blood loss anemia. However, risk of VTE is very high due to critical illness, bed-bound status, and prior VTE history. Since H/H are stable for many days will stop SC heparin and place on therapeutic heparin infusion especially in light of a.fib and very high VTE risk. (13) SDAT (senile dementia of Alzheimer's type): Plan: Memantine 5mg BID. Periods of confusion (likely hospital psychosis/metabolic encephalopathy) noted. (14) Paroxysmal atrial fibrillation: Plan: see #1 above (15) Hypertension: Plan: Previously controlled with lisinopril, coreg, amlodipine. meds on hold due to NPO status. To have cardizem for #1 which will control the BPs. (16) Acute kidney injury: Plan: Peak Cr 2.2 Now <1 resolved BMP am (17) Refusal of blood transfusions as patient is Taoism: (18) History of hemorrhagic stroke with residual hemiparesis: Plan: right-sided ICH 01/2022 with residual hemiparesis on left. most recent head CT without hemorrhage. (19) Hypokalemia: Plan: replaced resolved (20) Hypomagnesemia: Plan: replaced resolved but gave 1 gm mag sulfate today as mag low-normal at 1.7 (21) Constipation: Plan: resolved (22) Hypoalbuminemia: Plan: albumin is <2.5 poor candidate for enteral feedings via NG tube not a candidate at this time for PEG placement due to respiratory status s/p PPN then TPN this week but unfortunately have to hold such due to severe volume overload Plan family updated multiple times today Admission and Anticipated Discharge Date Admission Date: July 29, 2022 Subjective multiple visits once again to pt's bedside today during the first visit the patient was visibly short of breath with increased work of breathing throughout the day his O2 requirement was escalating and he had to be placed back on Vapotherm at bedside he continued with cough with thick sputum production /son were present lasix IV had been given earlier in the day, and I repeated another dose in the afternoon - this time 40mg x 1 he diuresed at least 1500cc of urine with latter dose Mr Jones continues to ask the same questions of me like "am I getting better?", "do you have good news?", etc He does not seem to understand the complexity of his medical issues late afternoon I received word that he went into rapid a.fib EKG indeed showed a.fib with RVR he had been in NSR for many days (although had a.fib with RVR early in this hospitalization) I informed the family that he would need to be moved to higher level of care in order to treat the a.fib Review of Systems Review of Systems: gen - did not sleep well again last pm cv - orthopnea present, but no chest pain pulm - ongoing dyspnea, wheezing, cough, congestion, sputum GI - no abd pain, moving bowels musculo - no R hip pain unless he rolls psych - ongoing confusion per staff & family Physical Exam Physical Exam: gen - marked increased work of breathing today with retractions, tachypnea, accessory muscle use, visible dyspnea neck - worsening JVD present mouth - no thrush heart - RRR, s1 s2, no murmur (during first visit) lungs - wheezes b/l - worse today;tachypnea; retractions; crackles b/l - worse today abd - soft NT ND BS+ skin - generalized pallor; ecchymoses right groin extending into the scrotal region unchanged ext - dependent edema of both arms; 1+ edema of feet; pulses feet 2+ b/l musculo - right leg mildly shortened and externally rotated - no change; SCDs in place psych - oriented to person/place; ongoing poor insight into medical complexity Results & Data Results & Data Vital Signs (Past 12 Hours) Vital Signs Temp Pulse Pulse Resp BP BP Pulse Ox 08/09/22 18:14 125 H 08/09/22 17:41 98 08/09/22 15:57 80 08/09/22 14:57 37.0 C 75 20 160/73 H 93 08/09/22 11:34 36.9 C 83 20 162/73 H 91 08/09/22 11:12 83 22 90 08/09/22 11:11 83 20 90 08/09/22 10:42 08/09/22 10:41 92 08/09/22 07:50 79 08/09/22 07:46 36.7 C 76 18 163/73 H 96 08/09/22 07:31 70 22 98 O2 Del Method O2 Flow Rate FiO2 08/09/22 18:14 08/09/22 17:41 High Flow Nasal Cannula 40 80 08/09/22 15:57 08/09/22 14:57 High Flow Nasal Cannula 30 70 08/09/22 11:34 High Flow Nasal Cannula 30 08/09/22 11:12 High Flow Nasal Cannula 30 70 08/09/22 11:11 High Flow Nasal Cannula 30 70 08/09/22 10:42 High Flow Nasal Cannula 30 70 08/09/22 10:41 High Flow Nasal Cannula 30 70 08/09/22 07:50 08/09/22 07:46 Oxymask, High Flow Nasal Cannula 15 08/09/22 07:31 High Flow Nasal Cannula Laboratory Results Laboratory Results - last 24 hr 08/08/22 08/08/22 08/09/22 18:45 23:50 06:40 WBC RBC Hgb Hct MCV MCH MCHC RDW Std Deviation RDW Coeff of Mickey Plt Count MPV Absolute Nucleated RBC Nucleated RBC % (auto) PT INR APTT PTT Ratio Sodium Potassium Chloride Carbon Dioxide Anion Gap BUN Creatinine Est Cr Clr Drug Dosing Est GFR ( Amer) Est GFR (Non-Af Amer) BUN/Creatinine Ratio Glucose POC Glucose 182 H 216 H 176 H Calcium Phosphorus Magnesium Total Bilirubin Direct Bilirubin AST ALT Alkaline Phosphatase Total Protein Albumin 08/09/22 08/09/22 08/09/22 07:45 07:45 10:41 WBC 10.42 RBC 2.48 L Hgb 7.9 L Hct 24.1 L MCV 97.2 MCH 31.9 MCHC 32.8 RDW Std Deviation 49.7 H RDW Coeff of Mickey 14.4 Plt Count 255 MPV 9.6 Absolute Nucleated RBC 0.08 Nucleated RBC % (auto) 0.8 PT 11.1 INR 1.0 APTT 25.0 PTT Ratio 0.9 Sodium 141 Potassium 4.1 Chloride 108 H Carbon Dioxide 28 Anion Gap 5 BUN 44 H Creatinine 0.74 Est Cr Clr Drug Dosing 80.6 Est GFR ( Amer) 98.9 Est GFR (Non-Af Amer) 85.3 BUN/Creatinine Ratio 59.5 H Glucose 170 H POC Glucose Calcium 7.9 L Phosphorus 2.2 L Magnesium 1.8 Total Bilirubin 1.1 H Direct Bilirubin 0.4 H AST 31 ALT 38 Alkaline Phosphatase 148 H Total Protein 5.2 L Albumin 2.6 L 08/09/22 08/09/22 08/09/22 11:22 16:39 18:18 WBC RBC Hgb Hct MCV MCH MCHC RDW Std Deviation RDW Coeff of Mickey Plt Count MPV Absolute Nucleated RBC Nucleated RBC % (auto) PT INR APTT 112.1 H* PTT Ratio 4.1 Sodium Potassium Chloride Carbon Dioxide Anion Gap BUN Creatinine Est Cr Clr Drug Dosing Est GFR ( Amer) Est GFR (Non-Af Amer) BUN/Creatinine Ratio Glucose POC Glucose 167 H 191 H Calcium Phosphorus Magnesium Total Bilirubin Direct Bilirubin AST ALT Alkaline Phosphatase Total Protein Albumin Diagnostic Findings EKG - my reading - a.fib with RVR, no ST changes PG Care Time/CCT Total # of Minutes Spent Total Time Spent with Patient: Total time spent is greater than 50% in coordination of care (as documented) at patient's floor/unit and/or counseling patient: Coding Level of Care Code 20350 SUB INP/OBS CARE 3/50MIN Diagnoses Atrial fibrillation with RVR I48.91 Acute on chronic diastolic CHF (congestive heart failure) I50.33 Acute hypoxemic respiratory failure J96.01 Aspiration pneumonia J69.0 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 M80.051A Dysphagia R13.10 Hypotension I95.9 Acute blood loss anemia D62 Multiple fractures of rib involving four or more ribs S22.49XA Transaminitis R74.01 Diabetes mellitus type 2 in obese E11.69; E66.9 Hx of deep venous thrombosis Z86.718 SDAT (senile dementia of Alzheimer's type) G30.1; F02.80 Paroxysmal atrial fibrillation I48.0 Hypertension I10 Acute kidney injury N17.9 Refusal of blood transfusions as patient is Taoism Z53.1 History of hemorrhagic stroke with residual hemiparesis I69.359 Hypokalemia E87.6 Hypomagnesemia E83.42 Constipation K59.00 Constipation type: unspecified constipation type Hypoalbuminemia E88.09 (21) Constipation Constipation type: unspecified constipation type Qualified Code(s): K59.00 - Constipation, unspecified
[2022-08-09] MEDS ORDERED: STAT IV Infusion **Titration per Protocol STA (19:43)
[2022-08-09] MEDS ORDERED: dilTIAZem HCl 5 MG/ML 5 ML VIAL IV STA (19:47)
[2022-08-09] MEDS: dilTIAZem HCL 125 MG in DEXTROSE 5% 100 ML IV SCH (20:29)
[2022-08-09] MEDS: LATANOPROST 0.005% OP SOLN 2.5 ML BTL OPB SCH (20:31)
[2022-08-09] MEDS ORDERED: STOP CLINOLIPID SCH (22:00)
[2022-08-10] MEDS: INSULIN ASPART PER UNIT CHARGE SC SCH ×4 (01:14→18:21)
[2022-08-10 02:47] LABS: Partial Thromboplastin Ratio 4.2
[2022-08-10 02:51] LABS: Partial Thromboplastin Time 115.3 Seconds (21.0-31.0)
[2022-08-10 06:53] LABS: Hematocrit (blood only) 23.1 % (42.0-52.0); Hemoglobin 7.7 g/dl (14.0-18.0)
[2022-08-10] MEDS: ALBUT/IPRATROP 3MG/0.5MG NEB 3 ML VIAL NEB SCH ×4 (07:17→19:26)
[2022-08-10] MEDS: SODIUM CHLOR 7% 4 ML NEB NEB SCH ×2 (07:17→19:26)
[2022-08-10 07:19] LABS: Calcium 7.7 mg/dl (8.5-10.1); Magnesium 1.8 mg/dl (1.7-2.4)
[2022-08-10 07:24] LABS: BUN Creatinine Ratio 56.9 (10-20); Creatinine Clr Calc Pharmacy 91.7 ml/min; Est GFR (African American) 104.3 ml/min; Phosphorus 2.2 mg/dl (2.5-4.9)
[2022-08-10 07:25] LABS: Partial Thromboplastin Ratio 2.5
--- NOTE | 2022-08-10 07:34 | Electrocardiogram Report ---
Test Reason : Blood Pressure : / mmHG Vent. Rate : 130 BPM Atrial Rate : 120 BPM P-R Int : 000 ms QRS Dur : 094 ms QT Int : 346 ms P-R-T Axes : 000 024 201 degrees QTc Int : 509 ms Atrial fibrillation with rapid ventricular response Nonspecific ST and T wave abnormality Abnormal ECG When compared with ECG of 01-AUG-2022 18:06, Nonspecific T wave abnormality, worse in Inferior leads Confirmed by Daniel Preciado ([id number]) on 08/10/2022 7:34:16 AM Referred By: REFERRED SELF Confirmed By:Donato Preciado
[2022-08-10 07:44] LABS: Partial Thromboplastin Time 69.2 Seconds (21.0-31.0)
[2022-08-10] MEDS: dilTIAZem HCL 125 MG in DEXTROSE 5% 100 ML IV SCH ×2 (08:39→11:33)
[2022-08-10] MEDS: HEPARIN SODIUM/DEXTROSE 25,000 UNITS/500 ML BAG IV SCH ×2 (08:39→11:33)
[2022-08-10] MEDS ORDERED: FUROSEMIDE 40 MG/4 ML VIAL IV ONE (08:51)
[2022-08-10] MEDS ORDERED: POTASSIUM CHLORIDE / WTR 10 MEQ/100 ML PLCT IV ONE (09:00)
[2022-08-10] MEDS ORDERED: MAGNESIUM SULFATE / D5W 1 GM/100 ML BAG IV ONE (09:00)
[2022-08-10 09:50] LABS: Partial Thromboplastin Ratio 2.9
[2022-08-10 09:51] LABS: Partial Thromboplastin Time 78.9 Seconds (21.0-31.0)
[2022-08-10] MEDS: FOLIC ACID 1 MG in SYRINGE 9.8 ML IV SCH (12:04)
[2022-08-10] MEDS ORDERED: STAT IV Infusion **Titration per Protocol STA (14:25)
[2022-08-10] MEDS ORDERED: AMIODARONE / D5W 150 MG/100 ML BAG IV STA (14:25)
[2022-08-10] MEDS ORDERED: 0.2 MICRON FILTER SET 1 EACH IV STA (14:25)
[2022-08-10] MEDS ORDERED: AMIODARONE IV BOLUS & DRIP IV STA (14:25)
[2022-08-10] MEDS: dexAMETHasone 6 MG in SYRINGE 0 ML IV SCH (14:26)
[2022-08-10] MEDS ORDERED: AMIODARONE / D5W 360 MG/200 ML BAG IV ONE (14:35)
[2022-08-10] MEDS ORDERED: FUROSEMIDE INJ 20 MG/2 ML VIAL IV ONE (17:00)
[2022-08-10 17:14] LABS: Partial Thromboplastin Ratio 2.2
[2022-08-10 17:17] LABS: Partial Thromboplastin Time 61.7 Seconds (21.0-31.0)
--- NOTE | 2022-08-10 20:13 | Hospitalist Progress Note ---
Date of Service August 10, 2022 Assessment & Plan (1) Atrial fibrillation with RVR: Plan: rate control has been inadequate with IV cardizem infusion, and BPs will preclude any increase or addition of AV demetri agents he has required amiodarone in the past as well as multiple episodes of elective cardioversion per records recent TSH wnl recent echo with preserved EF (08/01/22) but grade 2 diastolic dysfunction - see below stop cardizem infusion start amiodarone - 150mg IV x 1 bolus followed by infusion per protocol cont heparin infusion per protocol for anticoagulation (2) Acute on chronic diastolic CHF (congestive heart failure): Plan: remains clinically & radiographically volume overloaded with high O2 requirement. lasix 40mg x 1 this am followed by 20mg x 1 this afternoon. daily BMP. control the a.fib. (3) Acute hypoxemic respiratory failure: Plan: severe- 2nd to b/l aspiration pneumonia (RUL, LLL, etc) and now #2. mildly improved today with diuresis -- less increased work of breathing present. HFNC requirements remain high, however. s/p code blue on 07/31/2022. intubated by ICU attending at that time - noted to have purulent secretions in the epiglottis & vocal cords at time of intubation. transferred to ICU. s/p bronch - cultures from bronch negative. extubated 08/01/22. on high-flow NC in some capacity since extubation 08/01/22 with varying O2 requirements. s/p full 7-day course of IV zosyn. treat #1 and #2. (4) Aspiration pneumonia: Plan: s/p full 7 day course of zosyn. had been improving from pulmonary standpoint, then developed volume overload as above. cont duonebs qid. cont saline nebs. cont dexamethasone 6mg IV daily - day #5 today. cont pulmonary toilet.. repeat COVID testing neg. Flu/RSV testing neg. recent procal noted. plan 7 days of dex then stop. (5) 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: Plan: s/p fall on day of presentation. orthopedics consulted early in stay but patient has been too critically ill to pursue surgical correction. remains bedrest. cont pain control. stay complicated by #1, #2, #3, #4 and severe acute blood loss anemia along with dysphagia. Dr Feliz spoke with pt and his family 08/09/22; at this point Mr Jones is NOT an operative candidate. R hip fracture will be allowed to heal nonoperatively. Appreciate Dr Feliz speaking with his family. Check a vitamin D level at some point. (6) Dysphagia: Plan: remains npo. continues to fall bedside swallow evals with thin liquids and thickened liquids. still too ill to pursue video swallow, and the results of such would likely not change the fact that his risk of aspiration remains VERY high. in eva of PO or enteral nutrition we initiated PPN, then placed PICC to pursue TPN. unfortunately he developed volume overload with TPN and thus placed TPN on hold. LFTs remain stable on TPN/PPN no TPN today - still too volume overloaded (7) Hypotension: Plan: Did require pressors following his code blue early in the stay. Low BP now resolved. (8) Acute blood loss anemia: Plan: 2nd to bleeding into right hip/buttock/thigh from hip fracture, numerous blood draws since admission, etc. no overt GI bleeding. Protestant jameson precludes any blood transfusion. Hb remains low but acceptable and Hb has been slowly rising with Fe supplementation. Hb is stable in the mid to upper 7's. retic count is 6% thus Fe replacement has helped. he is s/p 3 doses of IV venofer this admission. recheck CBC in am. check Fe studies in am to determine if additional runs of IV venofer are needed. vit B12 level wnl. folate level low-normal - cont folic acid 1mg IV daily. (9) Multiple fractures of rib involving four or more ribs: Plan: Acute, right-sided ribs #3-7. Minimal to no pain from such. No issues. No complicating pneumothorax. (10) Transaminitis: Plan: Exact cause uncertain but likely reactive from his overall illness. can't exclude passive congestion from #2. Repeat levels remain mildly high but stable. (11) Diabetes mellitus type 2 in obese: Plan: Last a1c 6.1 03/2022. Holding home metformin. Cont novolog SSI. Add lantus 5 units HS. 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 Was Supratherapeutic on coumadin with INR of 3.4 on admission. Reversed s/p vitamin K. Has not been on any anticoagulation due to acute blood loss anemia. However, risk of VTE is very high due to critical illness, bed-bound status, and prior VTE history. Cont heparin infusion - standard dosing. (13) SDAT (senile dementia of Alzheimer's type): Plan: Memantine 5mg BID. Periods of confusion (likely hospital psychosis/metabolic encephalopathy/sundowning) noted. would not Rx with ativan (received such earlier in the stay). if we are forced to would use rispderal ODT at HS. (14) Paroxysmal atrial fibrillation: Plan: see #1 above (15) Hypertension: Plan: Previously controlled with lisinopril, coreg, amlodipine. meds on hold due to NPO status. BPs acceptable today. (16) Acute kidney injury: Plan: Peak Cr 2.2 Now <1 resolved BMP am (17) Refusal of blood transfusions as patient is Protestant: (18) History of hemorrhagic stroke with residual hemiparesis: Plan: right-sided ICH 01/2022 with residual hemiparesis on left. most recent head CT without hemorrhage. (19) Hypokalemia: Plan: replaced resolved (20) Hypomagnesemia: Plan: replaced resolved gave another 1 gm mag sulfate today given ongoing diuresis (21) Constipation: Plan: resolved (22) Hypoalbuminemia: Plan: albumin is <2.5 poor candidate for enteral feedings via NG tube not a candidate at this time for PEG placement due to respiratory status s/p PPN then TPN this week but unfortunately have to hold such due to severe volume overload Plan family updated extensively at bedside today prognosis is guarded remains DNR/DNI will ask speech to re-eval him on Friday Admission and Anticipated Discharge Date Admission Date: July 29, 2022 Subjective tele overnight - a.fib, most rates 100 BPM or higher occasional 90s cardizem drip was up to 10mg/hr but it had to be lowered due to low-normal BP patient asks "do you have good news?" he continues with cough, productive of sputum stayed with him last pm she reports he wakes frequently because of the cough he also had a little agitation in the middle of the night he keeps voicing to his family that he is hungry family reports they have accepted the fact he will not have hip surgery no other new issues Review of Systems Review of Systems: cv - no chest pain pulm - cough, sputum, dyspnea with rolling in bed all continue GI - no pain; moving bowels psych - growing despondent; some insomnia; some confusion at night Physical Exam Physical Exam: gen - breathing is comfortable today; NAD neck - JVD present but improved from yesterday mouth - no thrush heart - irregularly irregular, tachy, s1 s2, no murmur lungs - wheezes b/l; rales b/l; airation fair-good; no increased work of breathing today abd - soft NT ND BS+ skin - generalized pallor; ecchymoses right groin extending into the scrotal region unchanged ext - dependent edema of both arms improved today; <1+ edema of feet - improved; pulses feet 2+ b/l musculo - right leg mildly shortened and externally rotated - no change; SCDs in place vasc - right arm PICC in place; left neck - no hematoma from recent L IJ CVC Results & Data Results & Data Vital Signs (Past 12 Hours) Vital Signs Temp Pulse Pulse Resp BP Pulse Ox O2 Del Method 08/10/22 19:16 36.8 C 133 H 22 105/53 L 100 High Flow Nasal Cannula 08/10/22 19:30 18 98 High Flow Nasal Cannula 08/10/22 14:50 112 H 22 99 High Flow Nasal Cannula 08/10/22 11:39 High Flow Nasal Cannula 08/10/22 11:33 97 H 21 81 L High Flow Nasal Cannula 08/10/22 09:41 102 H O2 Flow Rate FiO2 08/10/22 19:16 08/10/22 19:30 35 80 08/10/22 14:50 40 100 08/10/22 11:39 40 100 08/10/22 11:33 35 65 08/10/22 09:41 Laboratory Results Laboratory Results - last 24 hr 08/10/22 08/10/22 08/10/22 01:08 01:09 05:27 Hgb Hct APTT 115.3 H* PTT Ratio 4.2 Sodium 141 Potassium 4.0 Chloride 108 H Carbon Dioxide 31 Anion Gap 2 L BUN 37 H Creatinine 0.65 Est Cr Clr Drug Dosing 91.7 Est GFR ( Amer) 104.3 Est GFR (Non-Af Amer) 90.0 BUN/Creatinine Ratio 56.9 H Glucose 141 H POC Glucose 190 H Calcium 7.7 L Phosphorus 2.2 L Magnesium 1.8 Triglycerides 102 08/10/22 08/10/22 08/10/22 05:27 05:27 05:29 Hgb 7.7 L Hct 23.1 L APTT 69.2 H* PTT Ratio 2.5 Sodium Potassium Chloride Carbon Dioxide Anion Gap BUN Creatinine Est Cr Clr Drug Dosing Est GFR ( Amer) Est GFR (Non-Af Amer) BUN/Creatinine Ratio Glucose POC Glucose 144 H Calcium Phosphorus Magnesium Triglycerides 08/10/22 08/10/22 08/10/22 09:00 11:45 15:46 Hgb Hct APTT 78.9 H* 61.7 H* PTT Ratio 2.9 2.2 Sodium Potassium Chloride Carbon Dioxide Anion Gap BUN Creatinine Est Cr Clr Drug Dosing Est GFR ( Amer) Est GFR (Non-Af Amer) BUN/Creatinine Ratio Glucose POC Glucose 141 H Calcium Phosphorus Magnesium Triglycerides 08/10/22 18:12 Hgb Hct APTT PTT Ratio Sodium Potassium Chloride Carbon Dioxide Anion Gap BUN Creatinine Est Cr Clr Drug Dosing Est GFR ( Amer) Est GFR (Non-Af Amer) BUN/Creatinine Ratio Glucose POC Glucose 205 H Calcium Phosphorus Magnesium Triglycerides PG Care Time/CCT Total # of Minutes Spent Total Time Spent with Patient: Total time spent is greater than 50% in coordination of care (as documented) at patient's floor/unit and/or counseling patient: Coding Level of Care Code 04486 SUB INP/OBS CARE 3/50MIN Diagnoses Atrial fibrillation with RVR I48.91 Acute on chronic diastolic CHF (congestive heart failure) I50.33 Acute hypoxemic respiratory failure J96.01 Aspiration pneumonia J69.0 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 M80.051A Dysphagia R13.10 Hypotension I95.9 Acute blood loss anemia D62 Multiple fractures of rib involving four or more ribs S22.49XA Transaminitis R74.01 Diabetes mellitus type 2 in obese E11.69; E66.9 Hx of deep venous thrombosis Z86.718 SDAT (senile dementia of Alzheimer's type) G30.1; F02.80 Paroxysmal atrial fibrillation I48.0 Hypertension I10 Acute kidney injury N17.9 Refusal of blood transfusions as patient is Protestant Z53.1 History of hemorrhagic stroke with residual hemiparesis I69.359 Hypokalemia E87.6 Hypomagnesemia E83.42 Constipation K59.00 Constipation type: unspecified constipation type Hypoalbuminemia E88.09 (21) Constipation Constipation type: unspecified constipation type Qualified Code(s): K59.00 - Constipation, unspecified
[2022-08-10] MEDS: LATANOPROST 0.005% OP SOLN 2.5 ML BTL OPB SCH (20:55)
[2022-08-10] MEDS: LANTUS PER UNIT CHARGE SQ SCH (20:57)
[2022-08-10] MEDS: AMIODARONE / D5W 360 MG/200 ML BAG IV SCH (21:47)
[2022-08-11] MEDS: INSULIN ASPART PER UNIT CHARGE SC SCH ×5 (00:07→23:58)
[2022-08-11 06:31] LABS: Hemoglobin 7.4 g/dl (14.0-18.0); Mean Corpuscular Hgb Conc 32.2 g/dL (32.0-36.0); Mean Corpuscular Volume 99.6 fL (80.0-100.0); Mean Platelet Volume 9.8 fL (9.4-12.4); Platelet Count 186 K/uL (130-400); RDW Coefficient of Variation 15.8 % (11.5-14.5); RDW Standard Deviation 54.1 fL (36.4-46.3); Red Blood Count 2.31 M/uL (4.70-6.10); White Blood Count 11.71 K/ul (4.8-10.8)
[2022-08-11 06:38] LABS: BUN Creatinine Ratio 54.7 (10-20); Calcium 7.6 mg/dl (8.5-10.1); Creatinine Clr Calc Pharmacy 79.5 ml/min; Est GFR (African American) 98.3 ml/min; Est GFR (Non-African American) 84.8 ml/min; Magnesium 1.9 mg/dl (1.7-2.4); Potassium 3.9 mmol/L (3.5-5.1)
[2022-08-11 07:01] LABS: Partial Thromboplastin Ratio 1.8; Partial Thromboplastin Time 49.8 Seconds (21.0-31.0)
[2022-08-11 07:03] LABS: Basophils # (auto) 0.02 K/uL (0-0.2); Basophils % (auto) 0.2 %; Immature Granulocytes # (auto) 0.14 K/uL (0.01-0.20); Immature Granulocytes % (auto) 1.2 %; Lymphocytes # (auto) 0.82 K/uL (1.2-3.4); Monocytes # (auto) 0.41 K/uL (0.11-0.59); Monocytes % (auto) 3.5 %; Neutrophils # (auto) 10.32 K/uL (1.40-6.50); Neutrophils % (auto) 88.1 %; RBC Morphology Unremarkable
[2022-08-11] MEDS: SODIUM CHLOR 7% 4 ML NEB NEB SCH ×2 (07:06→19:29)
[2022-08-11] MEDS: ALBUT/IPRATROP 3MG/0.5MG NEB 3 ML VIAL NEB SCH ×4 (07:14→19:29)
[2022-08-11 07:28] LABS: Ferritin 1274.7 ng/ml (8-388)
[2022-08-11] MEDS ORDERED: FUROSEMIDE 40 MG/4 ML VIAL IV ONE (08:06)
[2022-08-11] MEDS: AMIODARONE / D5W 360 MG/200 ML BAG IV SCH ×2 (09:26→20:10)
[2022-08-11] MEDS: FOLIC ACID 1 MG in SYRINGE 9.8 ML IV SCH (10:22)
[2022-08-11] MEDS: PANTOprazole 40 MG in SYRINGE 0 ML IV SCH (11:38)
[2022-08-11] MEDS: HEPARIN SODIUM/DEXTROSE 25,000 UNITS/500 ML BAG IV SCH (11:40)
[2022-08-11] MEDS ORDERED: METOPROLOL TARTRATE 1 MG/ML VIAL IV PRN (12:03)
[2022-08-11] MEDS ORDERED: bisacodyL 10 MG SUPP PR STA (14:22)
--- NOTE | 2022-08-11 14:22 | Hospitalist Progress Note ---
Date of Service August 11, 2022 Assessment & Plan (1) Atrial fibrillation with RVR: Plan: ongoing past attempts at rate control strategy have been unsuccessful per the medical record he has required amiodarone in the past as well as multiple episodes of elective cardioversion per records recent TSH wnl recent echo with preserved EF (08/01/22) but grade 2 diastolic dysfunction - see below cont amiodarone infusion add lopressor 5mg IV prn for sustained HRs >110 cont heparin infusion per protocol for anticoagulation if he does not spontaneously convert to NSR over the next 1-2 days - since respiratory status is much better - consult cardiology; perhaps he would need cardioversion (but only if patient continues with aggressive care plan as opposed to one of palliation - much of his care plan hinges on ability to swallow) (2) Acute on chronic diastolic CHF (congestive heart failure): Plan: marked improvement with diuresis x 3 days s/p lasix again this am with copious urine output suspect we are getting closer to euvolemia based on his lung exam, etc re-eval tomorrow for additional lasix continue to control the a.fib. it took multiple days to improve his respiratory status and his volume overload defer at least 1 more day for PPN or TPN to prevent recurrent volume overload (3) Acute hypoxemic respiratory failure: Plan: severe- 2nd to b/l aspiration pneumonia (RUL, LLL, etc) and now #2. MUCH improved with diuresis; vapotherm weaned off, now down to 5 l NC O2 s/p code blue on 07/31/2022. intubated by ICU attending at that time - noted to have purulent secretions in the epiglottis & vocal cords at time of intubation. transferred to ICU. s/p bronch - cultures from bronch negative. extubated 08/01/22. on high-flow NC in some capacity since extubation 08/01/22 with varying O2 requirements but finally over to standard NC O2 today. s/p full 7-day course of IV zosyn. treat #1 and #2. (4) Aspiration pneumonia: Plan: s/p full 7 day course of zosyn. aspiration pneumonia clinically resolved. most recent sputum cx neg. had been improving from pulmonary standpoint, then developed volume overload as above this past week. cont duonebs qid. cont saline nebs. cont dexamethasone 6mg IV daily - day #6 today. plan 7 days then stop. cont pulmonary toilet. repeat COVID testing neg. Flu/RSV testing neg. recent procal noted. (5) 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: Plan: s/p fall on day of presentation. orthopedics consulted early in stay but patient has been too critically ill to pursue surgical correction. remains bedrest. cont pain control. stay complicated by #1, #2, #3, #4 and severe acute blood loss anemia along with dysphagia. Dr Feliz spoke with pt and his family 08/09/22; at this point Mr Jones is NOT an operative candidate. R hip fracture will be allowed to heal nonoperatively. Appreciate Dr Feliz speaking with his family. Check a vitamin D level at some point. (6) Dysphagia: Plan: remains npo. continues to fall bedside swallow evals with thin liquids and thickened liquids. had had been too ill from respiratory standpoint to pursue video swallow will contact speech Friday and see if video swallow can be obtained now that he is down to standard NC in eva of PO or enteral nutrition we initiated PPN, then placed PICC to pursue TPN. unfortunately he developed volume overload with TPN and thus placed TPN on hold. LFTs remain stable on TPN/PPN no TPN today once again - perhaps resume tomorrow (only if he is not cleared by speech for PO intake) (7) Hypotension: Plan: Did require pressors following his code blue early in the stay. Low BP resolved. (8) Acute blood loss anemia: Plan: 2nd to bleeding into right hip/buttock/thigh from hip fracture, numerous blood draws since admission, etc. no overt GI bleeding. Lutheran jameson precludes any blood transfusion. Hb remains low but acceptable and Hb has been slowly rising with Fe supplementation. Hb is stable in the mid to upper 7's. retic count is 6% thus Fe replacement has helped. he is s/p 3 doses of IV venofer this admission. fe studies today with very adequate Fe storage. b12 level wnl. folate level low-normal - cont folic acid 1mg IV daily. fecal occult blood test today negative. repeat H/H am for stability. (9) Multiple fractures of rib involving four or more ribs: Plan: Acute, right-sided ribs #3-7. Minimal to no pain from such. No issues. No complicating pneumothorax. (10) Transaminitis: Plan: Exact cause uncertain but likely reactive from his overall illness. can't exclude passive congestion from #2. Repeat levels remain mildly high but stable. recheck LFTs am. could have been passive congestion from CHF. (11) Diabetes mellitus type 2 in obese: Plan: Last a1c 6.1 03/2022. Holding home metformin. Cont novolog SSI. Cont lantus 5 units HS. 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 Was Supratherapeutic on coumadin with INR of 3.4 on admission. Reversed s/p vitamin K. Has not been on any anticoagulation due to acute blood loss anemia. However, risk of VTE is very high due to critical illness, bed-bound status, and prior VTE history. Cont heparin infusion - standard dosing. (13) SDAT (senile dementia of Alzheimer's type): Plan: Memantine 5mg BID. Periods of confusion (likely hospital psychosis/metabolic encephalopathy/sundowning) noted. would not Rx with ativan (received such earlier in the stay). if we are forced to would use risperdall ODT at HS or morphine prn at HS. (14) Paroxysmal atrial fibrillation: Plan: see #1 above (15) Hypertension: Plan: Previously controlled with lisinopril, coreg, amlodipine. meds on hold due to NPO status. BPs acceptable today. (16) Acute kidney injury: Plan: Peak Cr 2.2 Now <1 resolved BMP am (17) Refusal of blood transfusions as patient is Lutheran: (18) History of hemorrhagic stroke with residual hemiparesis: Plan: right-sided ICH 01/2022 with residual hemiparesis on left. most recent head CT without hemorrhage. (19) Hypokalemia: Plan: replaced resolved (20) Hypomagnesemia: Plan: replaced resolved (21) Constipation: Plan: resolved -- then hadn't had BM in several days dulcolax suppos x 1 today (22) Hypoalbuminemia: Plan: albumin is <3 poor candidate for enteral feedings via NG tube not a candidate at this time for PEG placement due to respiratory status s/p PPN then TPN this week but unfortunately have to hold such due to severe volume overload Plan family updated extensively at bedside once again today prognosis still remains guarded especially given his dysphagia issues, malnutrition, etc remains DNR/DNI will ask speech to re-eval him on Friday for consideration of video swallow Admission and Anticipated Discharge Date Admission Date: July 29, 2022 Subjective tele overnight - rapid a.fib continues, with nearly all rates >100 BPM he remains asymptomatic from such with no palpitations vapotherm has been weaned off to wall-mounted HF he is down to 5 liters during my bedside visit during the visit his and family were present again stayed overnight w/ him and he continues to be restless he asks for food; he reports being hungry cough is markedly improved per his he denies dyspnea no new issues Review of Systems Review of Systems: gen - "I feel ok" cv - no orthopnea or chest pain or palpitations pulm - cough improved; no dyspnea today GI - no abd pain, no N/V - fink remains in place, no hematuria psych - insomnia continues Physical Exam Physical Exam: gen - NAD; best he has looked all week; comfortable neck - JVD resolved mouth - no thrush, MMM heart - irregularly irregular, tachy, s1 s2, no murmur lungs - wheezes b/l resolved; rales b/l bases only - mild, much improved from prior exams; airation is excellent today; no increased work of breathing abd - soft NT ND BS+ skin - generalized pallor; ecchymoses right groin extending into the scrotal region unchanged ext - dependent edema of both arms improved today; no edema of feet; pulses feet 2+ b/l musculo - right leg mildly shortened and externally rotated - no change psych - good spirits Results & Data Results & Data Vital Signs (Past 12 Hours) Vital Signs Temp Pulse Pulse Pulse Resp BP BP 08/11/22 12:47 120 H 126/86 08/11/22 11:24 36.8 C 120 H 24 126/82 08/11/22 10:55 112 H 18 08/11/22 08:00 08/11/22 07:51 36.4 C L 107 H 20 129/68 08/11/22 07:27 113 H 08/11/22 07:07 118 H 20 08/11/22 02:31 08/11/22 02:30 115 H 115 H 22 08/11/22 03:12 36.7 C 100 H 19 116/78 Pulse Ox O2 Del Method O2 Flow Rate FiO2 08/11/22 12:47 08/11/22 11:24 100 Nasal Cannula 10 08/11/22 10:55 99 Nasal Cannula 10 08/11/22 08:00 Other 10 08/11/22 07:51 92 High Flow Nasal Cannula 30 70 08/11/22 07:27 08/11/22 07:07 93 High Flow Nasal Cannula 35 70 08/11/22 02:31 High Flow Nasal Cannula 35 70 08/11/22 02:30 98 High Flow Nasal Cannula 35 75 08/11/22 03:12 98 High Flow Nasal Cannula 35 70 Laboratory Results Laboratory Results - last 24 hr 08/10/22 08/10/22 08/10/22 15:46 18:12 23:58 WBC RBC Hgb Hct MCV MCH MCHC RDW Std Deviation RDW Coeff of Mickey Plt Count MPV Immature Gran % (Auto) Neut % (Auto) Lymph % (Auto) Brewster % (Auto) Eos % (Auto) Baso % (Auto) Neut # (Auto) Lymph # (Auto) Brewster # (Auto) Eos # (Auto) Baso # (Auto) Immature Gran # (Auto) RBC Morphology APTT 61.7 H* PTT Ratio 2.2 Sodium Potassium Chloride Carbon Dioxide Anion Gap BUN Creatinine Est Cr Clr Drug Dosing Est GFR ( Amer) Est GFR (Non-Af Amer) BUN/Creatinine Ratio Glucose POC Glucose 205 H 163 H Calcium Magnesium Iron TIBC Unsaturated IBC Transferrin % Sat Ferritin 08/11/22 08/11/22 08/11/22 05:36 05:36 05:36 WBC 11.71 H RBC 2.31 L Hgb 7.4 L Hct 23.0 L MCV 99.6 MCH 32.0 MCHC 32.2 RDW Std Deviation 54.1 H RDW Coeff of Mickey 15.8 H Plt Count 186 MPV 9.8 Immature Gran % (Auto) 1.2 Neut % (Auto) 88.1 Lymph % (Auto) 7.0 Brewster % (Auto) 3.5 Eos % (Auto) 0.0 Baso % (Auto) 0.2 Neut # (Auto) 10.32 H Lymph # (Auto) 0.82 L Brewster # (Auto) 0.41 Eos # (Auto) 0.00 Baso # (Auto) 0.02 Immature Gran # (Auto) 0.14 RBC Morphology Unremarkable APTT 49.8 H* PTT Ratio 1.8 Sodium 141 Potassium 3.9 Chloride 107 Carbon Dioxide 31 Anion Gap 3 BUN 41 H Creatinine 0.75 Est Cr Clr Drug Dosing 79.5 Est GFR ( Amer) 98.3 Est GFR (Non-Af Amer) 84.8 BUN/Creatinine Ratio 54.7 H Glucose 145 H POC Glucose Calcium 7.6 L Magnesium 1.9 Iron TIBC Unsaturated IBC Transferrin % Sat Ferritin 08/11/22 08/11/22 08/11/22 06:31 06:37 11:08 WBC RBC Hgb Hct MCV MCH MCHC RDW Std Deviation RDW Coeff of Mickey Plt Count MPV Immature Gran % (Auto) Neut % (Auto) Lymph % (Auto) Brewster % (Auto) Eos % (Auto) Baso % (Auto) Neut # (Auto) Lymph # (Auto) Brewster # (Auto) Eos # (Auto) Baso # (Auto) Immature Gran # (Auto) RBC Morphology APTT PTT Ratio Sodium Potassium Chloride Carbon Dioxide Anion Gap BUN Creatinine Est Cr Clr Drug Dosing Est GFR ( Amer) Est GFR (Non-Af Amer) BUN/Creatinine Ratio Glucose POC Glucose 138 H 122 H Calcium Magnesium Iron 41 TIBC 146 L Unsaturated IBC 105 L Transferrin % Sat 28 Ferritin 1274.7 H PG Care Time/CCT Total # of Minutes Spent Total Time Spent with Patient: Total time spent is greater than 50% in coordination of care (as documented) at patient's floor/unit and/or counseling patient: Coding Level of Care Code 56642 SUB INP/OBS CARE 3/50MIN Diagnoses Atrial fibrillation with RVR I48.91 Acute on chronic diastolic CHF (congestive heart failure) I50.33 Acute hypoxemic respiratory failure J96.01 Aspiration pneumonia J69.0 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 M80.051A Dysphagia R13.10 Hypotension I95.9 Acute blood loss anemia D62 Multiple fractures of rib involving four or more ribs S22.49XA Transaminitis R74.01 Diabetes mellitus type 2 in obese E11.69; E66.9 Hx of deep venous thrombosis Z86.718 SDAT (senile dementia of Alzheimer's type) G30.1; F02.80 Paroxysmal atrial fibrillation I48.0 Hypertension I10 Acute kidney injury N17.9 Refusal of blood transfusions as patient is Lutheran Z53.1 History of hemorrhagic stroke with residual hemiparesis I69.359 Hypokalemia E87.6 Hypomagnesemia E83.42 Constipation K59.00 Constipation type: unspecified constipation type Hypoalbuminemia E88.09 (21) Constipation Constipation type: unspecified constipation type Qualified Code(s): K59.00 - Constipation, unspecified
[2022-08-11] MEDS: dexAMETHasone 6 MG in SYRINGE 0 ML IV SCH (15:20)
[2022-08-11] MEDS: MoRPHine SULFATE 2 MG/ML CARP IV PRN (17:42)
[2022-08-11] MEDS ORDERED: bisacodyL 10 MG SUPP PR ONE (17:46)
[2022-08-11] MEDS: LANTUS PER UNIT CHARGE SQ SCH (20:14)
[2022-08-11] MEDS: LATANOPROST 0.005% OP SOLN 2.5 ML BTL OPB SCH (20:14)
[2022-08-12] MEDS: INSULIN ASPART PER UNIT CHARGE SC SCH ×3 (06:30→17:36)
[2022-08-12] MEDS: AMIODARONE / D5W 360 MG/200 ML BAG IV SCH ×2 (06:37→18:11)
[2022-08-12 06:48] LABS: Hematocrit (blood only) 23.8 % (42.0-52.0)
[2022-08-12 07:05] LABS: Albumin Globulin Ratio 0.9 (0.9-2); Albumin Level 2.3 gm/dl (3.4-5.0); BUN Creatinine Ratio 53.4 (10-20); Bilirubin,Total 1.1 mg/dl (0.2-1.0); Calcium 7.8 mg/dl (8.5-10.1); Creatinine Clr Calc Pharmacy 81.7 ml/min; Est GFR (African American) 99.4 ml/min; Est GFR (Non-African American) 85.8 ml/min; Globulin 2.5 gm/dl (2.5-4.0); Potassium 3.7 mmol/L (3.5-5.1); Total Protein 4.8 gm/dl (6.0-8.3)
[2022-08-12] MEDS: SODIUM CHLOR 7% 4 ML NEB NEB SCH ×2 (07:12→19:37)
[2022-08-12] MEDS: ALBUT/IPRATROP 3MG/0.5MG NEB 3 ML VIAL NEB SCH ×4 (07:12→19:36)
[2022-08-12 07:33] LABS: Partial Thromboplastin Ratio 1.7
[2022-08-12 07:34] LABS: Partial Thromboplastin Time 45.8 Seconds (21.0-31.0)
[2022-08-12] MEDS: FOLIC ACID 1 MG in SYRINGE 9.8 ML IV SCH (08:43)
[2022-08-12] MEDS ORDERED: FUROSEMIDE INJ 20 MG/2 ML VIAL IV ONE (09:01)
[2022-08-12] MEDS ORDERED: MAGNESIUM SULFATE / D5W 1 GM/100 ML BAG IV ONE (09:01)
[2022-08-12] MEDS ORDERED: POTASSIUM CHLORIDE / WTR 10 MEQ/100 ML PLCT IV ONE (09:02)
[2022-08-12] MEDS: MoRPHine SULFATE 2 MG/ML CARP IV PRN ×2 (10:04→17:53)
[2022-08-12 10:59] LABS: Magnesium 1.8 mg/dl (1.7-2.4); Phosphorus 2.8 mg/dl (2.5-4.9)
[2022-08-12] MEDS: PANTOprazole 40 MG in SYRINGE 0 ML IV SCH (11:49)
--- NOTE | 2022-08-12 15:14 | Fluoroscopy Report ---
VIDEO SWALLOW STUDY CLINICAL HISTORY: Aspiration. COMPARISON STUDY: No priors. Fluoroscopy time: 4.3 minutes Exposure: 74.05 mGy FINDINGS: Fluoroscopic guidance was provided to the Department of Speech Pathology in performing a vi kimber swallow study. The patient consumed barium impregnated pudding, cracker with paste, thickened liq uids, and thin barium with swallowing mechanism was observed in real-time. There was silent aspiratio n seen with thin barium. There was pharyngeal penetration without clear aspiration seen with the mild ly thickened liquid textures. No penetration or aspiration was seen with the pudding or cracker with paste textures. There was delayed pharyngeal clearance and pharyngeal residuals. IMPRESSION: 1. Silent aspiration was seen with thin barium. 2. There is pharyngeal penetration without aspiration seen with thickened liquids. 3. Disordered swallowing as above. See dedicated speech pathology report for detailed findings and re commendations. Dictated: 08/12/2022 2:43 PM Transcribed: 08/12/2022 3:00 PM Meseret [id number] MELANI_Maurone Electronically signed by: Saleem Doll M.D. 08/12/2022 3:13 PM
[2022-08-12] MEDS ORDERED: [UNRECOGNIZED DRUG - OTHER] IV SCH (16:00)
[2022-08-12] MEDS ORDERED: CENTRAL TPN IV SCH (16:00)
[2022-08-12 16:08] LABS: Partial Thromboplastin Ratio 1.8
[2022-08-12] MEDS: dexAMETHasone 6 MG in SYRINGE 0 ML IV SCH (16:08)
[2022-08-12] MEDS: HEPARIN SODIUM/DEXTROSE 25,000 UNITS/500 ML BAG IV SCH (16:08)
[2022-08-12 16:12] LABS: Partial Thromboplastin Time 48.7 Seconds (21.0-31.0)
[2022-08-12] MEDS ORDERED: LORazepam 2 MG/1 ML VIAL IV PRN (17:43)
--- NOTE | 2022-08-12 19:08 | Palliative Care Progress Note ---
Date of Service August 12, 2022 Assessment & Plan (1) Palliative care by specialist: (2) Advanced care planning/counseling discussion: Plan: Multiple patient and family meetings were held today both at the bedside and in the family meeting room. The family meeting room discussion was held with patient's and son along with Dr. Parker, to provide a very detailed overview of the results of his video swallow study. Reviewed the inherent risks at this junction. Additional complications include the fact that patient is back in A- fib which is not responding to medication changes, will likely require another cardioversion, had fluid volume overload with CHF and hypoxia changes from TPN which required holding the TPN with aggressive diuresis, he is now diuresed well and TPN will be started tonight at a lower dose. In addition to this, orthopedics has informed patient and family that there is no surgical fix for his hip. The goal at this junction is to let it heal by secondary intention and begin a regimen of subacute rehab to determine what degree of functional recovery he may have, if any, over the next several months. We discussed with the family that at this junction there are several overarching concerns. His hip and his swallow are unfixable conditions. His expressed several times a general disbelief that there was no advanced medical or surgical intervention that could be offered to cure his swallowing problem. She feels that one of the other would be tolerable for both together would create a quality life that patient would not enjoy. Patient's son stated, "I do not care what he has to do, if that is what it takes to keep living and that is what he is going to have to do when he will just have to deal with it. I do want to see my father . So he is going to have to deal with it." We discussed that the overall goals for any medical interventions provided are to assure that the care is in conjunction and in alignment for the patient's wishes, desires and preferences would be for the circumstances they are in. Offered a gentle reminder that no matter what therapy or intervention is being offered, it should be noted that these interventions as well as their toxicities, side effects, complications and risks are being born by the patient in the bed. All of the things that happen as a result of aggressive and continued interventions will be felt and dealt with by the patient and not those around him. His cognitive impairment is becoming more evident as the hospitalization continues. He is not able to follow any course of detailed discussion. He is not decisional at this time. When he returned to the patient's bedside to review the swallow study with patient, he stated that he felt the results were good because that is what he had heard during the study. We reviewed the results of the study which indicates that he should remain NPO. We also advised that we do not believe the swallowing problem is fixable just like his hip is not fixable. We reviewed that we anticipate this would be a prolonged course of hospitalization followed by fpc admission for subacute rehab trial with possible conversion to long-term care. Patient was inconsistently inconsistent and expressing his wi shes, alternately stating "well, to do everything if that is what he takes, or "no I do not want any of those things, I do not want a tube, I do not want a fpc." We encourage patient and family to further discuss their thoughts and feelings on these issues before making any final decisions. I specifically reviewed with them proceeding with a feeding tube will not fix the aspiration problem in any definitive manner: Aspiration well and can continue in spite of the PEG tube, particularly with somebody who becomes more sedentary, immobilized and may likely be spending a prolonged amount of time on bedrest. Additional risks and complications also include the risk that becomes elevated for blood clots, skin breakdown, and side effects of artificial nutrition which may include but are not limited to reflux, bloating, abdominal pain, cramps and changes in bowel function. Also advised the patient to enjoy eating and drinking will not have that same sensation with tube feedings. In addition, patient expresses a desire to "get better" so that he can return home and resume his activities such as yard work. He had a very difficult time grasping that he would not return to his prior to admission baseline. (3) Aspiration into airway: Plan: Video swallow today: He does not have a functional swallow. His UES (upper esophageal spinster) does not open at all to allow for the food to enter his esophagus. He has no epiglottic inversion, no pharyngeal constriction and hyoid excursion however given that he actually aspirates much less than one would expect. The aspiration would be manageable if his UES would open to allow his pharynx to empty however that is not happening. Recommending continued NPO. Rec feeds for applesauce and thins only if family accepts the risks and results of aspiration. 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 Given its likely neurologic origin, this is not a fixable problem and has very limited recovery potential. Pharyngeally, there is a few exercises he could attempt as an outpt but they are inconsistently effective in a strong candidate and complex to complete correctly. However his main issue is that his UES is not opening. (4) Atrial fibrillation: Plan: Patient's atrial fibrillation remains refractory to medical management. He will likely require another cardioversion. He is also sensitive to the fluid balance shifts from TPN and this has been dose adjusted to allow for decreased total volume input. We will continue to monitor. (5) Aspiration pneumonia: Plan: Resolved. (6) Acute hypoxemic respiratory failure: (7) Closed intertrochanteric fracture of femur: (8) Refusal of blood transfusions as patient is Jainism: (9) Obstructive sleep apnea: (10) Hypertensive heart disease: Plan Very complex and detailed ACP family meeting as outlined above. Remains in continued and persistent atrial fibrillation which is refractory to medical management. Will likely require another cardioversion. There is no surgical option available for his hip fracture. 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 This is likely a neurologic complication from his stroke. There is not expected to see any significant improvement. There is no operative fix for this issue. Family will require some time to process this information and to further discuss amongst themselves what the goals of care are at this junction. Patient remains inconsistently inconsistent. He is not decisional. He is unable to process the complexity and overwhelming details of his medical issues. Extensive support and reassurance provided. Thank you for allowing us to participate in the ongoing care of this patient. Please don't hesitate to call or page with any additional concerns. Dr. Edwina Jensen DNP Director, Palliative Care Admission and Anticipated Discharge Date Admission Date: July 29, 2022 Subjective Video swallow completed today and per speech therapy, results as follows: "completed the video swallow study on Yulia Jones 241-2. He does not have a functional swallow. His UES (upper esophageal spinster) does not open at all to allow for the food to enter his esophagus. He has no epiglottic inversion, no pharyngeal constriction and hyoid excursion however given that he actually aspirates much less than one would expect. The aspiration would be manageable if his UES would open to allow his pharynx to empty however that is not happening. Recommending continued NPO. Rec feeds for applesauce and thins only if family accepts the risks and results of aspiration." Family meeting held first with patient's and son, then again with patient at the bedside to provide a condensed explanation as outlined below, and at the same time his other son was called on the phone to attend telephonically. Review of Systems Review of Systems: All systems reviewed & are unremarkable except as noted in Subjective Results & Data Vital Signs (Past 12 Hours) Vital Signs Temp Pulse Pulse Resp BP BP Pulse Ox 08/12/22 16:30 92 08/12/22 16:25 36.5 C 112 H 18 106/64 88 L 08/12/22 15:38 108 H 15 95 08/12/22 11:31 36.3 C L 84 16 116/67 99 08/12/22 10:55 109 H 96 H 15 08/12/22 08:00 94 08/12/22 08:00 08/12/22 07:44 36.4 C L 92 H 17 118/80 100 08/12/22 07:16 82 14 96 O2 Del Method O2 Flow Rate 08/12/22 16:30 Nasal Cannula 3 08/12/22 16:25 Nasal Cannula 1 08/12/22 15:38 Nasal Cannula 3 08/12/22 11:31 Nasal Cannula 3 08/12/22 10:55 Nasal Cannula 4 08/12/22 08:00 Nasal Cannula 5 08/12/22 08:00 Nasal Cannula 5 08/12/22 07:44 Nebulizer 8 08/12/22 07:16 Nasal Cannula 5 PG Care Time/CCT Total # of Minutes Spent Total Time Spent: 110 Total Time Spent with Patient: Total time spent is greater than 50% in coordination of care (as documented) at patient's floor/unit and/or counseling patient: I spent 110 minutes overall addressing this case: 20 in medical data review/discussion with referring provider(s) and/or preparation for the visit 30 in direct interaction with the patientand family 45 Advance Care Planning/Goals of Care discussions as detailed above in note (must be >16min) 10 in subsequent review and synthesis of assessment and plan 5 in communicating with other providers regarding the patient's case: [] C[place] [address] SUB INP/OBS CARE 50MIN Patient Type Established History Comprehensive Exam Comprehensive Medical Decision Making High Complexity Diagnoses Palliative care by specialist Z51.5 Advanced care planning/counseling discussion Z71.89 Aspiration into airway T17.908A Atrial fibrillation I48.2 Atrial fibrillation type: chronic Aspiration pneumonia J69.0 Acute hypoxemic respiratory failure J96.01 Closed intertrochanteric fracture of femur S72.143A Refusal of blood transfusions as patient is Jainism Z53.1 Obstructive sleep apnea G47.33 Hypertensive heart disease I11.9 (4) Atrial fibrillation Atrial fibrillation type: chronic Qualified Code(s): I48.2 - Chronic atrial fibrillation
--- NOTE | 2022-08-12 20:53 | Hospitalist Progress Note ---
Date of Service August 12, 2022 Assessment & Plan (1) Goals of care, counseling/discussion: Plan: please see "subjective" portion of this note for specific details of very lengthy goals of care discussion today (75 minutes of discussion with family as well as patient) at conclusion of today's meeting it was undecided what he wants moving forward we (myself & Dr Jensen) encouraged he & his /family to continue discussing his goals of care he does remain DNR/DNI while waiting for refinement of care plan will resume - albeit cautiously - TPN today (NG tube feedings likely would not be tolerated - thus will defer) following the meeting I got word from his nurse he was quite anxious - ordered tiny dose of ativan prn he also has morphine available for hip pain, air hunger, etc appreciate Dr Jensen's assistance and expertise with this very complex situa tion (2) Dysphagia: Plan: severe video swallow today showed severe impairment of his UES (upper esophageal sphincter); no epiglottis inversion; no pharyngeal constriction or hyoid excursion cause of such not fully certain, but suspected to be neurologically-based - perhaps from his bleeding CVA in the fall 2021; perhaps from other neurological event; other factors not excluded; certainly sarcopenia also contributing but his swallowing was impaired VERY EARLY in this hospital stay suggesting this was a more chronic problem he aspirates SILENTLY with thins (again see subjective portion of this note) speech advises strict NPO status with artificial nutrition if desired by pt/family speech does not feel the would have any significant improvement in swallow function over time or with with swallowing rehab PEG tube placement & feedings discussed risks/benefits discussed we reviewed that PEG tube insertion does not eliminate aspiration risk we reviewed that PEG tube feedings typically do not improve one's quality of life pt/family to continue to discuss these complicated issues TPN in meantime via PICC defer NG tube placement - I do not think he would tolerate such (3) Atrial fibrillation with RVR: Plan: ongoing past attempts at rate control strategy have been unsuccessful per the medical record he has required amiodarone in the past as well as multiple episodes of elective cardioversion per records recent TSH wnl recent echo with preserved EF (08/01/22) but grade 2 diastolic dysfunction - see below cont amiodarone infusion add lopressor 2.5mg IV q6h scheduled for additional rate control cont heparin infusion per protocol for anticoagulation if he does not spontaneously convert to NSR over the next 1-2 days - since respiratory status is much better - consult cardiology (if patient/family is wanting routine care and they defer on a palliative care plan approach); elective cardioversion would need to be discussed (4) Acute on chronic diastolic CHF (congestive heart failure): Plan: decompensation resolved give lasix 20mg IV x 1 this am then stop diuresis marked improvement with diuresis x 4 days continue to control the a.fib. as in #3 resume TPN very cautiously as he did not tolerate the large volumes last week from such (5) Acute hypoxemic respiratory failure: Plan: severe - 2nd to b/l aspiration pneumonia (RUL, LLL, etc) and now #4. MUCH improved with diuresis; vapotherm weaned off, now down to 3 l NC O2 s/p code blue on 07/31/2022. intubated by ICU attending at that time - noted to have purulent secretions in the epiglottis & vocal cords at time of intubation. transferred to ICU. s/p bronch - cultures from bronch negative. extubated 08/01/22. on high-flow NC in some capacity since extubation 08/01/22 with varying O2 requirements but finally over to standard NC O2 last 48 hours s/p full 7-day course of IV zosyn. abx are off. stop diuresis after today's lasix dose. (6) Aspiration pneumonia: Plan: s/p full 7 day course of zosyn. aspiration pneumonia clinically resolved. most recent sputum cx neg. had been improving from pulmonary standpoint, then developed volume overload as above this past week. cont duonebs qid. cont saline nebs. cont dexamethasone 6mg IV daily - day 76 today. stop after today's dose. cont pulmonary toilet. repeat COVID testing neg. Flu/RSV testing neg. recent procal noted. (7) 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: Plan: s/p fall on day of presentation. orthopedics consulted early in stay but patient has been too critically ill to pursue surgical correction. remains bedrest. cont pain control. stay complicated by acute hypoxic resp failure, volume overload, aspiration pneumonia, rapid a.fib, severe acute blood loss anemia along with severe dysphagia. Dr Feliz spoke with pt and his family 08/09/22; at this point Mr Jones is NOT an operative candidate. R hip fracture will be allowed to heal nonoperatively. Appreciate Dr Feliz speaking with his family. Check a vitamin D level at some point if patient/family pursue ongoing routine care. (8) Hypotension: Plan: Did require pressors following his code blue early in the stay. Low BP resolved. (9) Acute blood loss anemia: Plan: 2nd to bleeding into right hip/buttock/thigh from hip fracture, numerous blood draws since admission, etc. no overt GI bleeding. Fecal occult blood is NEGATIVE. Sabianism jameson precludes any blood transfusion. Hb remains low but acceptable and Hb has been slowly rising with Fe supplementation. Hb is stable in the mid to upper 7's - 8 range. retic count is 6% thus Fe replacement has helped. he is s/p 3 doses of IV venofer this admission. fe studies show very adequate Fe storage. b12 level wnl. folate level low-normal - cont folic acid 1mg IV daily. repeat H/H today remain stable. (10) Multiple fractures of rib involving four or more ribs: Plan: Acute, right-sided ribs #3-7. Minimal to no pain from such. No issues. No complicating pneumothorax. (11) Transaminitis: Plan: Exact cause uncertain but likely reactive from his overall illness. can't exclude passive congestion from decompensated CHF. Repeat levels today remain mildly high but stable. recheck LFTs am due to TPN usage. (12) Diabetes mellitus type 2 in obese: Plan: Last a1c 6.1 03/2022. Holding home metformin. Cont novolog SSI. Cont lantus 5 units HS. stopping steroids will help overall control. 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 Was Supratherapeutic on coumadin with INR of 3.4 on admission. Reversed s/p vitamin K. Has not been on any anticoagulation due to acute blood loss anemia. However, risk of VTE is very high due to critical illness, bed-bound status, and prior VTE history. Cont heparin infusion - standard dosing. (14) SDAT (senile dementia of Alzheimer's type): Plan: Memantine 5mg BID. Periods of confusion (likely hospital psychosis/metabolic encephalopathy/sundowning) noted but improved last 48 hours. he slept better last pm as well. (15) Paroxysmal atrial fibrillation: Plan: see above (16) Hypertension: Plan: Previously controlled with lisinopril, coreg, amlodipine. meds on hold due to NPO status. BPs acceptable today. (17) Acute kidney injury: Plan: Peak Cr 2.2 Now <1 resolved BMP am (18) Refusal of blood transfusions as patient is Sabianism: (19) History of hemorrhagic stroke with residual hemiparesis: Plan: right-sided ICH 01/2022 with residual hemiparesis on left. most recent head CT without hemorrhage. (20) Hypokalemia: Plan: replaced resolved (21) Hypomagnesemia: Plan: replaced resolved (22) Constipation: Plan: resolved dulcolax suppos prn (23) Hypoalbuminemia: Plan: albumin is <3 poor candidate for enteral feedings via NG tube resuming TPN today see #1 above Plan total care time today 90 minutes -- 2 visits to bedside, VERY LENGTHY family meeting/discussion, complex care coordination Admission and Anticipated Discharge Date Admission Date: July 29, 2022 Subjective extended care time today first visit was this am on rounds was at bedside only Mr Jones denied any significant complaints he overall had a good night with minimal cough no dyspnea only has right hip pain with rolling in bed he remains optimistic that "he will get better" denies any new complaints tele overnight - a.fib, all rates >100 BPM Mr Jones is now down to 3 L NC O2 (was on maxed out vapotherm several days ago) about 330pm I met with the pt and his family along with Dr Jensen from palliative care first we met outside the room - in attendance were myself, Dr Jensen, his , and his son we had a very lengthy discussion about the results of the video swallow we went over the results in detail as well as the recommendations from speech therapy to continue complete NPO status given the video findings I suspect that perhaps his stroke in fall 2021 may have contributed to the current swallowing dysfunction we pointed out that the video showed silent aspiration with thin liquids and perhaps dysphagia & aspiration for thins has been going on for months, perhaps even dating back to his stroke his current illness could have made everything worse with severe deconditioning and sarcopenia contributing in addition, it is not out of he realm of possibility that he could have had another stroke since the fall (but we have not pursued MRI brain to prove such as he has been too ill to get an MRI) discussed that video findings would mean he would need enteral nutrition to survive (PEG tube placement) discussed further that with right hip fracture NOT being repaired, need for probable elective cardioversion, need for PEG, etc would likely lend itself to 1-2 weeks more of hospitalization for him, followed by a very lengthy stay in a SNF for rehab, possibly even indefinite we reviewed that Mr Jones often times has a difficult time understanding complex topics like the above however, we have noted he has been consistent in wanting the following - 1) walking 2) returning home 3) eating/drinking by mouth following the above we all returned to pt's room and spoke to Mr Jones directly; Mr Jones's 2nd son was on speaker phone we reviewed the video swallow results and told him he can't take oral nutrition and would need a PEG tube we reviewed he would likely need to get shocked to get him out of a.fib we reviewed that although ortho would ultimately allow him to get out of bed and put some weight on RLE he likely would never have the same walking/gait as prior he was not pleased with any of the above he initially said "oh, I don't think I would want that" (PEG tube) but later stated "well, I guess you (the doctors) just do what you have to do" [to get him better] I asked him if he would want to go to a SNF for rehab knowing he would be away from his this was not appealing at all to him; he simply wants to go home his was in tears and very emotional pt's sister asked several times if we felt his swallow function would ever improve; we told them that the chances were low - not impossible - but quite low based on the video results today Review of Systems Review of Systems: gen - having an overall good day without fever, chills; he is hungry cv - no cp, no pleuritic pain, no orthopnea pulm - cough resolved; no dyspnea at rest GI - no pain, N/V musculo - right hip pain with rolling psych - slept very good last pm per Physical Exam Physical Exam: gen - NAD; comfortable neck - JVD resolved mouth - no thrush, MMM heart - irregularly irregular, tachy, s1 s2, no murmur lungs - wheezes b/l resolved; rales b/l bases only - mild at most, dry; airation excellent; no increased work of breathing abd - soft NT ND BS+ skin - generalized pallor; ecchymoses right groin extending into the scrotal region unchanged ext - dependent edema of both arms resolved; no edema of feet; pulses feet 2+ b/l musculo - right leg shortened and externally rotated - no change psych - awake/alert vascular - right arm PICC clean, intact Results & Data Results & Data Vital Signs (Past 12 Hours) Vital Signs Temp Pulse Pulse Resp BP BP Pulse Ox 08/12/22 19:37 134 H 91 08/12/22 19:25 36.5 C 138 H 16 118/86 90 08/12/22 16:30 92 08/12/22 16:25 36.5 C 112 H 18 106/64 88 L 08/12/22 15:38 108 H 15 95 08/12/22 11:31 36.3 C L 84 16 116/67 99 08/12/22 10:55 109 H 96 H 15 O2 Del Method O2 Flow Rate 08/12/22 19:37 08/12/22 19:25 Nasal Cannula 08/12/22 16:30 Nasal Cannula 3 08/12/22 16:25 Nasal Cannula 1 08/12/22 15:38 Nasal Cannula 3 08/12/22 11:31 Nasal Cannula 3 08/12/22 10:55 Nasal Cannula 4 Laboratory Results Laboratory Results - last 24 hr 08/11/22 08/12/22 08/12/22 23:15 05:46 05:46 Hgb Hct APTT 45.8 H* PTT Ratio 1.7 Sodium 141 Potassium 3.7 Chloride 106 Carbon Dioxide 31 Anion Gap 4 BUN 39 H Creatinine 0.73 Est Cr Clr Drug Dosing 81.7 Est GFR ( Amer) 99.4 Est GFR (Non-Af Amer) 85.8 BUN/Creatinine Ratio 53.4 H Glucose 141 H POC Glucose 198 H Calcium 7.8 L Phosphorus 2.8 Magnesium 1.8 Total Bilirubin 1.1 H AST 63 H ALT 90 H Alkaline Phosphatase 156 H Total Protein 4.8 L Albumin 2.3 L Globulin 2.5 Albumin/Globulin Ratio 0.9 08/12/22 08/12/22 08/12/22 05:46 05:49 11:17 Hgb 8.0 L Hct 23.8 L APTT PTT Ratio Sodium Potassium Chloride Carbon Dioxide Anion Gap BUN Creatinine Est Cr Clr Drug Dosing Est GFR ( Amer) Est GFR (Non-Af Amer) BUN/Creatinine Ratio Glucose POC Glucose 153 H 111 H Calcium Phosphorus Magnesium Total Bilirubin AST ALT Alkaline Phosphatase Total Protein Albumin Globulin Albumin/Globulin Ratio 08/12/22 08/12/22 14:56 17:31 Hgb Hct APTT 48.7 H* PTT Ratio 1.8 Sodium Potassium Chloride Carbon Dioxide Anion Gap BUN Creatinine Est Cr Clr Drug Dosing Est GFR ( Amer) Est GFR (Non-Af Amer) BUN/Creatinine Ratio Glucose POC Glucose 130 H Calcium Phosphorus Magnesium Total Bilirubin AST ALT Alkaline Phosphatase Total Protein Albumin Globulin Albumin/Globulin Ratio PG Care Time/CCT Total # of Minutes Spent Total Time Spent with Patient: Total time spent is greater than 50% in coordination of care (as documented) at patient's floor/unit and/or counseling patient: Prolonged Care Time Prolonged Care Time: Yes Total Prolonged Care Time: 90 Coding Level of Care Code 95049 SUB INP/OBS CARE 3/50MIN (25 - SIGNIFICANT, SEPARATELY IDENTIFIABLE ) Diagnoses Goals of care, counseling/discussion Z71.89 Dysphagia R13.10 Atrial fibrillation with RVR I48.91 Acute on chronic diastolic CHF (congestive heart failure) I50.33 Acute hypoxemic respiratory failure J96.01 Aspiration pneumonia J69.0 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 M80.051A Hypotension I95.9 Acute blood loss anemia D62 Multiple fractures of rib involving four or more ribs S22.49XA Transaminitis R74.01 Diabetes mellitus type 2 in obese E11.69; E66.9 Hx of deep venous thrombosis Z86.718 SDAT (senile dementia of Alzheimer's type) G30.1; F02.80 Paroxysmal atrial fibrillation I48.0 Hypertension I10 Acute kidney injury N17.9 Refusal of blood transfusions as patient is Sabianism Z53.1 History of hemorrhagic stroke with residual hemiparesis I69.359 Hypokalemia E87.6 Hypomagnesemia E83.42 Constipation K59.00 Constipation type: unspecified constipation type Hypoalbuminemia E88.09 Additional Codes Prolonged Care Time - Prolonged Care Time: Yes ([id number]) (22) Constipation Constipation type: unspecified constipation type Qualified Code(s): K59.00 - Constipation, unspecified
[2022-08-12] MEDS: LATANOPROST 0.005% OP SOLN 2.5 ML BTL OPB SCH (21:01)
[2022-08-12] MEDS: METOPROLOL TARTRATE 1 MG/ML VIAL IV SCH (21:05)
[2022-08-12] MEDS: LANTUS PER UNIT CHARGE SQ SCH (21:06)
[2022-08-13] MEDS: INSULIN ASPART PER UNIT CHARGE SC SCH ×4 (00:36→18:22)
[2022-08-13] MEDS: METOPROLOL TARTRATE 1 MG/ML VIAL IV SCH ×4 (00:40→18:02)
[2022-08-13] MEDS: AMIODARONE / D5W 360 MG/200 ML BAG IV SCH ×2 (06:15→17:59)
[2022-08-13] MEDS: SODIUM CHLOR 7% 4 ML NEB NEB SCH ×2 (07:03→19:29)
[2022-08-13] MEDS: ALBUT/IPRATROP 3MG/0.5MG NEB 3 ML VIAL NEB SCH ×4 (07:03→19:29)
[2022-08-13 07:20] LABS: Basophils # (auto) 0.01 K/uL (0-0.2); Basophils % (auto) 0.2 %; Hematocrit (blood only) 23.6 % (42.0-52.0); Immature Granulocytes # (auto) 0.08 K/uL (0.01-0.20); Immature Granulocytes % (auto) 1.3 %; Lymphocytes # (auto) 0.49 K/uL (1.2-3.4); Lymphocytes % (auto) 7.8 %; Mean Corpuscular Hemoglobin 32.8 pg (25.0-34.0); Mean Corpuscular Hgb Conc 33.9 g/dL (32.0-36.0); Mean Corpuscular Volume 96.7 fL (80.0-100.0); Mean Platelet Volume 10.3 fL (9.4-12.4); Monocytes # (auto) 0.39 K/uL (0.11-0.59); Monocytes % (auto) 6.2 %; Neutrophils # (auto) 5.35 K/uL (1.40-6.50); Neutrophils % (auto) 84.5 %; Platelet Count 199 K/uL (130-400); RDW Coefficient of Variation 15.9 % (11.5-14.5); RDW Standard Deviation 55.3 fL (36.4-46.3); Red Blood Count 2.44 M/uL (4.70-6.10); White Blood Count 6.32 K/ul (4.8-10.8)
[2022-08-13 07:32] LABS: BUN Creatinine Ratio 52.1 (10-20); Calcium 7.5 mg/dl (8.5-10.1); Creatinine Clr Calc Pharmacy 81.7 ml/min; Est GFR (African American) 99.4 ml/min; Est GFR (Non-African American) 85.8 ml/min; Magnesium 1.9 mg/dl (1.7-2.4); Phosphorus 2.3 mg/dl (2.5-4.9)
--- NOTE | 2022-08-13 07:44 | Hospitalist Progress Note ---
Date of Service August 13, 2022 Assessment & Plan (1) Goals of care, counseling/discussion: Plan: Palliative care is consulted, /family to continue discussing his goals of care he does remain DNR/DNI increased anxiety prn Ativan he also has morphine available for hip pain, air hunger, etc (2) Dysphagia: Plan: severe video swallow showed severe impairment of his UES (upper esophageal sphincter); no epiglottis inversion; no pharyngeal constriction or hyoid excursion acute on chronic problem high risk he aspirates SILENTLY with thins (again see subjective portion of this note) speech advises strict NPO status with artificial nutrition speech does not feel the would have any significant improvement in swallow function over time or with with swallowing rehab PEG tube placement & feedings discussed risks/benefits discussed Dr mullins reviewed PEG tube insertion does not eliminate aspiration risk and typically do not improve one's quality of life TPN in meantime via PICC (3) Atrial fibrillation with RVR: Plan: acute uncontrolled high risk past attempts at rate control strategy have been unsuccessful per the medical record he has required amiodarone in the past as well as multiple episodes of elective cardioversion per records recent TSH wnl recent echo with preserved EF (08/01/22) but grade 2 diastolic dysfunction cont amiodarone infusion add lopressor 2.5mg IV q6h scheduled for additional rate control cont heparin infusion per protocol for anticoagulation (4) Acute on chronic diastolic CHF (congestive heart failure): Plan: acute decompensation resolved not currently actively diuresing at this point rapid ventricular rate did contribute volume assesent with TPN use for prn lasix belinda resolved (5) Acute hypoxemic respiratory failure: Plan: severe - 2nd to b/l aspiration pneumonia (RUL, LLL, etc) improved with diuresis; oxygen tapered to 3 l NC O2 s/p code blue on 07/31/2022. intubated by ICU attending at that time - noted to have purulent secretions in the epiglottis & vocal cords at time of intubation. s/p bronch - cultures from bronch negative. extubated 08/01/22. completed 7-day course of IV zosyn. cont duonebs qid. cont saline nebs. cont dexamethasone 6mg IV daily - day 76 today. stop after today's dose. cont pulmonary toilet repeat COVID testing neg. Flu/RSV testing neg. (6) 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: Plan: s/p fall on admission orthopedics consulted defers surgical correction due to medical comorbidities, non weight bearing orthopedic surgeon Dr Feliz spoke to family. additional rib fractures, no additional injuries (7) Acute blood loss anemia: Plan: 2nd to bleeding into right hip/buttock/thigh from hip fracture, numerous blood draws since admission, etc. no overt GI bleeding. Fecal occult blood is NEGATIVE. Evangelical jameson precludes any blood transfusion. he is s/p 3 doses of IV venofer this admission. fe studies show very adequate Fe storage. (8) Diabetes mellitus type 2 in obese: Plan: chronic and controlled, Last a1c 6.1 03/2022. Holding home metformin. Cont novolog SSI. Cont lantus 5 units HS. 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 Reversed s/p vitamin K. Has not been on any anticoagulation due to acute blood loss anemia. However, risk of VTE is very high due to critical illness, bed-bound status, and prior VTE history. Cont heparin infusion - standard dosing. (10) SDAT (senile dementia of Alzheimer's type): Plan: chronic and stable, has some owning Memantine 5mg BID. (11) Refusal of blood transfusions as patient is Evangelical: (12) History of hemorrhagic stroke with residual hemiparesis: Plan: right-sided ICH 01/2022 with residual hemiparesis on left. most recent head CT without hemorrhage. Admission and Anticipated Discharge Date Admission Date: July 29, 2022 Results & Data Results & Data Vital Signs (Past 12 Hours) Vital Signs Temp Pulse Pulse Resp BP BP Pulse Ox 08/13/22 07:22 94 H 18 92 08/13/22 06:17 102 H 139/79 08/13/22 04:00 97.9 F 73 18 121/80 93 08/13/22 00:00 116 H 08/13/22 00:40 119 H 131/80 08/12/22 23:33 97.5 F L 110 H 18 106/61 93 08/12/22 20:15 08/12/22 21:05 124 H 118/86 O2 Del Method O2 Flow Rate 08/13/22 07:22 Nasal Cannula 3 08/13/22 06:17 08/13/22 04:00 Room Air 08/13/22 00:00 08/13/22 00:40 08/12/22 23:33 Nasal Cannula 08/12/22 20:15 Nasal Cannula 3 08/12/22 21:05 PG Care Time/CCT Total # of Minutes Spent Total Time Spent with Patient: Total time spent is greater than 50% in coordination of care (as documented) at patient's floor/unit and/or counseling patient: Coding Level of Care Code 65737 SUB INP/OBS CARE 3/50MIN Diagnoses Goals of care, counseling/discussion Z71.89 Dysphagia R13.10 Atrial fibrillation with RVR I48.91 Acute on chronic diastolic CHF (congestive heart failure) I50.33 Acute hypoxemic respiratory failure J96.01 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 M80.051A Acute blood loss anemia D62 Diabetes mellitus type 2 in obese E11.69; E66.9 Hx of deep venous thrombosis Z86.718 SDAT (senile dementia of Alzheimer's type) G30.1; F02.80 Refusal of blood transfusions as patient is Evangelical Z53.1 History of hemorrhagic stroke with residual hemiparesis I69.359
[2022-08-13 08:02] LABS: Partial Thromboplastin Ratio 1.8; Partial Thromboplastin Time 49.3 Seconds (21.0-31.0)
[2022-08-13] MEDS: FOLIC ACID 1 MG in SYRINGE 9.8 ML IV SCH (08:36)
[2022-08-13] MEDS: PANTOprazole 40 MG in SYRINGE 0 ML IV SCH (11:30)
--- NOTE | 2022-08-13 11:50 | Gastrointestinal Consultation ---
Date of Consultation August 13, 2022 Assessment & Plan (1) Aspiration into airway: (2) Dysphagia: Plan Patient is a 82 y.o. male with a complex history admitted after a fall ~2 weeks ago with aspiration, dysphagia and feeding difficulties. 1. Anesthesia consult placed to determine eligibility for anesthesia. 2. Tentative EGD with PEG tomorrow if cleared by anesthesia. 3. 2g Ancef business applications developer to GI prior to PEG. 4. Will need to hold Heparin ggt 6 hours prior to procedure. Will place hold orders once time has been solidified. 5. Agree with strict NPO given aspiration although patient and family are aware that he may still aspiration secretions. 6. Supportive care per primary team. Thank you for allowing me to participate in the care of this patient. If you have any questions or concerns, please do not hesitate to contact us. Supervising Physician Co-Signing Physician Notes Agree with CORINNE Crawford as above Abd: Soft, NT, ND NPO after midnight PEG tube in AM due to dysphagia History of Present Illness Reason for Consultation: PEG Requesting Physician: Dr. Ventura Attending Physician: Kerwin Ventura MD History of Present Illness Patient is a 82 y.o. male with a history of A Fib, CHF, DM, and CVA admitted after sustaining a fall approximately 2 weeks. He has been admitted and did undergo a video swallow which demonstrated silent aspiration. He has been made NPO and is receiving TPN. Palliative care and primary team have reviewed risks and benefits of PEG insertion and the patient and family are aware that the G- tube will not preclude silent aspiration of secretions. Patient is requesting the PEG for nutritional support and medication management. Denies any abdominal pain or overt rectal bleeding. Allergies Allergy/AdvReac Type Severity Reaction Status Date / Time meperidine AdvReac Intermediate OVER-SEDATION, Verified 07/29/22 19:58 N/V W/ SYNCOPE sertraline [From Zoloft] AdvReac Intermediate Dizziness Verified 07/29/22 19:58 Home Medications Medication Instructions Recorded Confirmed Type latanoprost 0.005 % eye drops 1 drp OPB HS 06/28/18 07/29/22 History mecobalamin (vitamin B12) 1,000 1,000 mcg PO QAM 03/21/20 07/29/22 History mcg chewable tablet leuprolide acetate (6 month) 45 mg 45 mg IM Q24W #1 ea 04/25/20 07/29/22 Rx intramuscular syringe kit (Lupron Depot) warfarin 3 mg tablet 4.5 mg PO WK 06/18/21 07/29/22 History blood sugar diagnostic #100 ea 02/25/22 06/28/22 Rx carvedilol 6.25 mg tablet 6.25 mg PO BID #180 tabs 03/01/22 07/29/22 Rx amiodarone 200 mg tablet 200 mg PO QAM #90 tabs 03/18/22 07/29/22 Rx metformin 500 mg tablet 500 mg PO BID #180 tabs 04/08/22 07/29/22 Rx amlodipine 2.5 mg tablet 2.5 mg PO DAILY #90 tabs 06/28/22 07/29/22 Rx atorvastatin 40 mg tablet 40 mg PO HS #90 tabs 07/17/22 07/29/22 Rx lisinopril 10 mg tablet 10 mg PO QAM 07/29/22 07/29/22 History polyethylene glycol 3350 17 gram 17 g PO BID PRN Constipation 07/29/22 07/29/22 History oral powder packet (Miralax) warfarin 3 mg tablet 3 mg PO [id number] 07/29/22 07/29/22 History Patient History Medical History Acute hemorrhage Acute hypoxemic respiratory failure Acute spont intraparenchymal hemorrhage assoc w/ hypertension Advanced care planning/counseling discussion Antithrombin III deficiency FOLLOWS PCP > DR. TAN/LOC - ON COUMADIN ARDS (adult respiratory distress syndrome) Aspiration into airway Aspiration pneumonia Blurred vision, bilateral Cataract RT/LEFT Chest pain Constipation Diabetes mellitus type 2 in obese Dizziness Forgetfulness "RELATED TO AGE" Glaucoma LEFT EYE History of adenomatous polyp of colon History of atrial fibrillation History of hemorrhagic stroke with residual hemiparesis History of prostate cancer History of skin cancer MELANOMA AND BASAL CELL Hx of deep venous thrombosis SEVERAL YEARS AGO, REASON FOR COUMADIN Hx pulmonary embolism WITH DVT ? YEAR "A FEW YEARS AGO" Hyperlipidemia Hypertension Hypertensive heart disease preserved LV function Hypertensive urgency Obstructive sleep apnea no device used (could not tolerate) Osteoarthritis Palliative care by specialist Prostate cancer Refusal of blood transfusions as patient is Jewish Septic shock Thoracic ascending aortic aneurysm UNSURE ABOUT DX Surgical History History of cardioversion (11/2018) X 4--last 06/22/21 @ [facility] History of colonoscopy History of local excision of skin lesion MULTIPLE REMOVAL History of nasal septoplasty multiple-with Celon turbinate reduction History of tooth extraction Hx of colonoscopy Hx of prostate biopsy Family History Mother Venous embolism and thrombosis of deep vessels of lower extremity Cancer Father Stroke syndrome Other No family history of adverse response to anesthesia No family history of bleeding disorder No pertinent family history Denies family history of Ovarian cancer Prostate cancer Coronary heart disease Alzheimer disease Bipolar disorder Breast cancer COPD (chronic obstructive pulmonary disease) Colorectal cancer Asthma Social History Smoking Status: Never smoker Second Hand Exposure: Yes; Hx Alcohol Use: No Hx Substance Use: No Preferred Language: Pashto Communication Ability: Effective Visual Impairment: No Limitations Hearing Ability: Normal Manager Drilling Required: No Beliefs That Will Affect Care: Religion Religion Beliefs: Pt is Jehova's witness will not use blood products marital status: Current Living Situation: Spouse current occupational status: retired current occupation: Worked at [employer] How many Children do You have: 2 Feels Safe at Home: Yes Childhood Exposure to Second-Hand Smoke: No caffeine: No during the past year weight has: remained stable Dental Care, Regularly: Yes Physical Activity Frequency: Does not Exercise Seatbelt Use: always Sunscreen Use: No Assistive Devices: Cane and Walker Review of Systems Constitutional: no fever and no chills Respiratory: + cough, + dyspnea and + dyspnea on exertion Cardiovascular: no chest pain and no palpitations Gastrointestinal: as per Subjective / HPI Physical Exam Constitutional: WD/WN, vitals as above Neck: normal visual inspection Respiratory: + labored breathing Auscultation: + breath sounds absent and + rhonchi Cardiovascular: Rate/Rhythm: + irregularly irregular Gastrointestinal (Abdomen): Inspection/Auscultation: + abdomen distended Percussion/Palpation: abdomen soft; abdomen nontender Musculoskeletal: Extremities: + lower leg abnormality (bilateral trace lower extremity edema) Skin: warm and dry Psychiatric: A+Ox3, euthymic affect Results & Data Vital Signs (Past 12 Hours) Vital Signs Temp Pulse Pulse Resp BP BP BP 08/13/22 11:31 113 H 121/71 08/13/22 11:22 36.2 C L 113 H 16 121/71 08/13/22 10:45 94 H 20 08/13/22 07:30 105 H 08/13/22 07:30 08/13/22 07:55 36.7 C 132 H 19 125/77 08/13/22 07:22 94 H 18 08/13/22 06:17 102 H 139/79 08/13/22 04:00 36.6 C 73 18 121/80 08/13/22 00:00 116 H 08/13/22 00:40 119 H 131/80 Pulse Ox O2 Del Method O2 Flow Rate 08/13/22 11:31 08/13/22 11:22 91 Nasal Cannula 2 08/13/22 10:45 95 Nasal Cannula 3 08/13/22 07:30 08/13/22 07:30 Nasal Cannula 3 08/13/22 07:55 90 Nasal Cannula 4.0 08/13/22 07:22 92 Nasal Cannula 3 08/13/22 06:17 08/13/22 04:00 93 Room Air 08/13/22 00:00 08/13/22 00:40 Diagnostic Findings Laboratory Results WBC 6.32 K/ul (4.8-10.8) 08/13/22 06:23 RBC 2.44 M/uL (4.70-6.10) L 08/13/22 06:23 Hgb 8.0 g/dl (14.0-18.0) L 08/13/22 06:23 POC Hgb 7.1 g/dl (14.0-18.0) L 08/04/22 17:35 Hct 23.6 % (42.0-52.0) L 08/13/22 06:23 POC Hct 21 % (42-52) L 08/04/22 17:35 MCV 96.7 fL (80.0-100.0) 08/13/22 06:23 MCH 32.8 pg (25.0-34.0) 08/13/22 06:23 MCHC 33.9 g/dL (32.0-36.0) 08/13/22 06:23 RDW Std Deviation 55.3 fL (36.4-46.3) H 08/13/22 06: RDW Coeff of Mickey 15.9 % (11.5-14.5) H 08/13/22 06: Plt Count 199 K/uL (130-400) 08/13/22 06: MPV 10.3 fL (9.4-12.4) 08/13/22 06: Immature Gran % (Auto) 1.3 % 08/13/22 06: Neut % (Auto) 84.5 % 08/13/22 06: Lymph % (Auto) 7.8 % 08/13/22 06: [place] % (Auto) 6.2 % 08/13/22 06: Eos % (Auto) 0.0 % 08/13/22 06: Baso % (Auto) 0.2 % 08/13/22 06: Reticulocyte % (Auto) 6.4 % (0.5-2.0) H 08/08/22 05:33 Neut # (Auto) 5.35 K/uL (1.40-6.50) 08/13/22 06: Lymph # (Auto) 0.49 K/uL (1.2-3.4) L 08/13/22 06: [place] # (Auto) 0.39 K/uL (0.11-0.59) 08/13/22 06: Eos # (Auto) 0.00 K/uL (0-0.50) 08/13/22 06: Baso # (Auto) 0.01 K/uL (0-0.2) 08/13/22 06: Reticulocyte # 0.15 10^6/uL (0.02-0.10) H 08/08/22 05:33 Immature Gran # (Auto) 0.08 K/uL (0.01-0.20) 08/13/22 06: Absolute Nucleated RBC 0.08 K/uL (0-0.12) 08/09/22 07:45 Nucleated RBC % (auto) 0.8 % 08/09/22 07:45 RBC Morphology Unremarkable 08/11/22 05:36 Polychromasia 1+ 08/06/22 06:23 PT 11.1 Seconds (9.0-12.0) 08/09/22 10:41 INR 1.0 (0.9-1.1) 08/09/22 10:41 APTT 49.3 Seconds (21.0-31.0) H* 08/13/22 06:23 PTT Ratio 1.8 08/13/22 06:23 Sample Site R Radial 08/04/22 17:35 POC pH 7.46 (7.35-7.45) H 08/04/22 17:35 POC pCO2 36 mmHg (35-46) 08/04/22 17:35 POC pO2 57 mmHg (80-95) L 08/04/22 17:35 POC HCO3 26 carlota/L (19-24) H 08/04/22 17:35 POC Total CO2 27 mmol/L (24-31) 08/04/22 17:35 POC Base Excess 2.0 carlota/L (-9-1.8) H 08/04/22 17:35 ABG pH (Temp Correct) 7.462 (7.35-7.45) H 08/04/22 17:35 ABG pCO2 (Temp Corrct 36 mmHg (35-46) 08/04/22 17:35 POC ABG pO2 at Pt Temp 57 08/04/22 17:35 POC ABG O2 Sat 91.0 % (90-95) 08/04/22 17:35 Kalia Test Pass 08/04/22 17:35 VBG pH 7.41 (7.36-7.41) 07/31/22 07:38 VBG pCO2 40 mmHg (38-50) 07/31/22 07:38 VBG pO2 28 mmHg 07/31/22 07:38 VBG HCO3 25 mmol/L 07/31/22 07:38 VBG O2 Saturation < 60.0 % 07/31/22 07:38 VBG Base Excess 0.7 mEq/L 07/31/22 07:38 O2 Delivery Device Hi Dario Can 08/04/22 17:35 POC O2 Rate 16 08/01/22 04:43 POC FiO2 100 % 08/04/22 17:35 Tidal Volume 420 08/01/22 04:43 PEEP 8 08/01/22 04:43 POC Sodium 136 mmol/L (135-144) 08/04/22 17:35 Sodium 139 mmol/L (136-145) 08/13/22 06:23 POC Potassium 3.6 mmol/L (3.3-5.0) 08/04/22 17:35 Potassium 4.0 mmol/L (3.5-5.1) 08/13/22 06:23 Chloride 106 mmol/L (98-107) 08/13/22 06:23 Carbon Dioxide 30 mmol/L (21-32) 08/13/22 06:23 Anion Gap 3 (3-11) 08/13/22 06:23 BUN 38 mg/dl (6-23) H 08/13/22 06:23 Creatinine 0.73 mg/dl (0.6-1.4) 08/13/22 06:23 Est Cr Clr Drug Dosing 81.7 ml/min 08/13/22 06:23 Est GFR ( Amer) 99.4 ml/min 08/13/22 06:23 Est GFR (Non-Af Amer) 85.8 ml/min 08/13/22 06:23 BUN/Creatinine Ratio 52.1 (10-20) H 08/13/22 06:23 Glucose 189 mg/dl (70-99(Fasting)) H 08/13/22 06:23 POC Glucose 174 mg/dl (70-99) H 08/13/22 11:23 POC Glucose (other) 162 mg/dl (70-99) H 07/31/22 18:21 Lactate 1.0 mmol/L (0.4-2.0) 07/31/22 10:24 Calcium 7.5 mg/dl (8.5-10.1) L 08/13/22 06:23 Phosphorus 2.3 mg/dl (2.5-4.9) L 08/13/22 06:23 Magnesium 1.9 mg/dl (1.7-2.4) 08/13/22 06:23 Iron 41 mcg/dl (35-175) 08/11/22 06:37 TIBC 146 mcg/dl (250-450) L 08/11/22 06:37 Unsaturated IBC 105 mcg/dl (155-355) L 08/11/22 06:37 Transferrin % Sat 28 % (20-50) 08/11/22 06:37 Ferritin 1274.7 ng/ml (8-388) H 08/11/22 06:37 Total Bilirubin 1.1 mg/dl (0.2-1.0) H 08/12/22 05:46 Direct Bilirubin 0.4 mg/dl (0-0.2) H 08/09/22 07:45 AST 63 U/L (13-39) H 08/12/22 05:46 ALT 90 U/L (7-52) H 08/12/22 05:46 Alkaline Phosphatase 156 U/L (34-104) H 08/12/22 05:46 Total Creatine Kinase 57 U/L (30-223) 08/07/22 08:29 Troponin I High Sens 9.9 pg/ml (0-20) 07/29/22 17:43 Total Protein 4.8 gm/dl (6.0-8.3) L 08/12/22 05:46 Albumin 2.3 gm/dl (3.4-5.0) L 08/12/22 05:46 Globulin 2.5 gm/dl (2.5-4.0) 08/12/22 05:46 Albumin/Globulin Ratio 0.9 (0.9-2) 08/12/22 05:46 Triglycerides 102 mg/dl (0-150) 08/10/22 05:27 Vitamin B12 > 1500 pg/ml (180-914) H 08/07/22 08:28 Folate 6.29 ng/ml (>5.38) 08/07/22 08:28 Procalcitonin 0.56 ng/ml (0-0.5) H 08/08/22 05:33 TSH 1.102 uIu/ml (0.300-4.500) 08/07/22 08:29 Nasal Screen MRSA (PCR) Negative (Negative) 08/05/22 17:43 Stool Occult Bld Scrn Negative (Negative) 08/11/22 18:04 SARS-CoV-2 (PCR) NEGATIVE (Negative) 08/07/22 13:55 Influenza Type A (PCR) Negative (Neg) 08/07/22 13:55 Influenza Type B (PCR) Negative (Neg) 08/07/22 13:55 RSV (RT-PCR) Negative (Neg) 08/07/22 13:55 SARS-CoV-2, RNA, NAAT NEGATIVE (NEGATIVE) 07/29/22 22:07 Staphylococcus sp PCR DETECTED (NotDetected) A 07/31/22 10:16 Bld Cult ID Panel PCR See PCR Comment (NotDetected) 07/31/22 10:16 Impressions Femur X-Ray 07/29/22 17:56 XR pelvis 1-2V routine, XR femur RT 2V routine CLINICAL HISTORY: right hip pain s/p fall from standing TECHNIQUE: A single frontal view of the pelvis was obtained. 2 views of the right femur were obtained. Comparison: Comparison is made to hip radiograph 01/29/2019 FINDINGS: There is an intratrochanteric fracture of the right femur is partially visualized. Prominent degenerative changes are seen in the bilateral hip joints and lumbar spine. Vascular calcifications are noted. IMPRESSION: Partially visualized is an intratrochanteric fracture of the right femur. ACT 112: Negative or not required by law. Electronically signed by: Abner Shah M.D. 07/29/2022 7:03 PM Pelvis X-Ray 07/29/22 17:56 XR pelvis 1-2V routine, XR femur RT 2V routine CLINICAL HISTORY: right hip pain s/p fall from standing TECHNIQUE: A single frontal view of the pelvis was obtained. 2 views of the right femur were obtained. Comparison: Comparison is made to hip radiograph 01/29/2019 FINDINGS: There is an intratrochanteric fracture of the right femur is partially visualized. Prominent degenerative changes are seen in the bilateral hip joints and lumbar spine. Vascular calcifications are noted. IMPRESSION: Partially visualized is an intratrochanteric fracture of the right femur. ACT 112: Negative or not required by law. Electronically signed by: Abner Shah M.D. 07/29/2022 7:[address] 07/31/22 07:53 CT head/brain wo con CLINICAL HISTORY: acute hypoxia, AMS Technique: Contiguous axial CT images of the head were acquired from the base of the skull to the vertex without intravenous contrast administration. Images were viewed in brain, subdural and bone windows. Automated dose lowering techniques and/or adjustment according to patient size were utilized for this exam. Comparison: Comparison is made to CT head 04/13/2022 Findings: Areas of decreased attenuation are present in the periventricular and subcortical white matter bilaterally consistent with small vessel ischemic disease. Generalized cerebral atrophy with commensurate enlargement of the ventricles, sulci, and cisterns is also present. There is no acute intracranial hemorrhage or evidence of acute territorial infarction. No shift of the midline structures, mass effect, or extra-axial abnormalities are shown. Atherosclerotic calcifications are present in the intracranial segments of the internal carotid arteries. 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 Left external capsule hypodensity is unchanged. Imaged portions of the paranasal sinuses and mastoid air cells are clear. The orbits appear normal. There are no acute fractures of the calvaria or scalp swelling. Impression: No acute intracranial hemorrhage, no evidence of acute territorial infarction or other acute intracranial disease process. ACT 112: Negative or not required by law. Electronically signed by: Abner Shah M.D. 07/31/2022 10:[address] 07/31/22 07:56 CT SCAN OF THE CERVICAL SPINE CLINICAL HISTORY: Fall. COMPARISON STUDY: CT of the cervical spine dated 04/09/2019. TECHNIQUE: CT scan of the cervical spine is performed from the skull base to the upper thoracic spine. Images are reviewed in the axial, sagittal, and coronal planes. IV contrast was not administered for this examination. A dose lowering technique was utilized adhering to the principles of ALARA. CT DOSE: 535.66 mGycm FINDINGS: Skeletal structures: The skeletal structures are osteopenic. There is no evidence of fracture or subluxation involving the cervical spine. Vertebral body height and alignment are maintained. There is straightening of the cervical lordosis. Anterior osteophytes are seen throughout. The odontoid process and lateral masses are intact. The atlantoaxial articulation is preserved noting advanced productive degenerative change. The spinous processes appear intact. There is moderate to advanced multilevel cervical spondylosis. Uncovertebral and facet arthropathy contribute to neural foraminal narrowing at most levels. Intervertebral discs: There is moderate disc space narrowing at C6-C7. Mild narrowing is seen at the remaining cervical levels. Central canal: Posterior disc osteophyte complexes at C3-C4 and C6-C7 likely contribute to acquired compromise of the central canal. Soft tissues: The prevertebral and paraspinous soft tissues are within normal limits. There is advanced atherosclerotic calcification of the carotid bulbs. There is a left internal jugular central venous catheter. Calvarium: The visualized calvarium at the skull base appears intact. Brain parenchyma: Partially visualized brain parenchyma at the skull base is within normal limits noting age-related involutional change. Sinuses and mastoids: The visualized paranasal sinuses are clear. The mastoid air cells are well pneumatized. Lung apices: Endotracheal and enteric tubes are in place. Apical lung parenchyma is clear as visualized. IMPRESSION: 1. There is no evidence of fracture or subluxation involving the cervical spine. 2. Osteopenia and spondylotic change as above. ACT 112: Negative or not required by law. Electronically signed by: Saleem Doll M.D. 07/31/2022 10:08 AM Abdomen/Pelvis CT 07/31/22 09:00 CT SCAN OF THE ABDOMEN AND PELVIS WITHOUT IV CONTRAST; CT SCAN OF THE RIGHT HIP WITHOUT IV CONTRAST CLINICAL HISTORY: Fall. Hypoxia. Change in mental status. Right hip pain. COMPARISON STUDY: Abdominal CT dated 04/13/2022. Radiographs of the right hip dated 07/29/2022. TECHNIQUE: CT scan of the abdomen and pelvis is performed from the lung bases to the proximal femora. Additionally, CT scan of the right hip is performed from the bony pelvis to the femoral shaft. Images for both examination are reviewed in the axial, sagittal, and coronal planes. IV contrast was not administered for this examination as per the referring clinician. Note that the examinations were performed and significantly suboptimal fashion without oral and IV contrast. The examination is compromised by motion artifact, as well as by streak artifact from the arms which could not be elevated above the abdomen or pelvis. A dose lowering technique was utilized adhering to the principles of ALARA. CT DOSE: 1389.54 mGycm FINDINGS: Lung bases: The heart is top normal in size and without pericardial effusion. The coronary arteries are densely calcified. There is diminished attenuation of the cardiac blood pool as compared to the myocardium suggesting anemia. There is dense left lower lobe consolidation. Segmental atelectasis is seen at the right lung base. Trace pleural effusion is seen on the left. Liver: The unenhanced liver is normal in size, contour, and attenuation. There is no intrahepatic biliary ductal dilatation. Gallbladder: Unremarkable. Spleen: Normal in size and attenuation. Pancreas: There is near complete fatty atrophy of the pancreas. Adrenal glands: Unremarkable. Kidneys: The unenhanced kidneys demonstrate cortical atrophy and are without hydronephrosis. There are no renal calculi identified. There is no evidence of contour deforming renal mass lesion. Abdominal vasculature: The abdominal aorta is normal in course and caliber noting advanced atherosclerotic calcification. Stomach and bowel: The enteric tube is in place and terminates in the gastric fundus. There is mild to moderate colonic fecal retention. No bowel obstruction is seen. The appendix is normal as visualized. Peritoneum: There is trace free fluid in the pelvis. No intraperitoneal free air is seen. Lymphadenopathy: None. Pelvic viscera: The bladder is decompressed around a Peña catheter and grossly unremarkable. The prostate gland is diminutive and heterogeneous. The seminal vesicles are normal as imaged. Skeletal structures: The skeletal structures are osteopenic. The bony pelvis and left proximal femur are intact. See below for discussion of the right hip. There are acute to subacute appearing right anterior fourth through seventh rib fractures. Additional bilateral rib fractures are likely chronic. There is a mild chronic compression deformity of L1. Moderate lumbosacral spondylosis is observed. No lytic or blastic lesions are seen. RIGHT HIP: There is a comminuted and displaced intertrochanteric/subtrochanteric fracture of the right proximal femur with numerous distracted fragments and surrounding hemorrhage. The larger fragments are offset by 1.5 cm. The visualized right hemipelvis appears intact. There is a small amount of intramuscular hemorrhage within the right gluteal, adductor, and proximal thigh musculature. Soft tissue edema overlies the right hip. IMPRESSION: 1. Significantly suboptimal examination without oral and IV contrast. The examinations are also compromised by streak and motion artifact. 2. There is dense left lower lobe airspace consolidation. Correlate clinically for evidence of pneumonia/aspiration pneumonitis. 3. There is no evidence of solid organ injury in the abdomen or pelvis on this unenhanced examination. 4. There are acute to subacute appearing right anterior rib fractures. Correlate for point tenderness. 5. Trace nonspecific free fluid is seen in the pelvis. 6. There is a comminuted and displaced intertrochanteric/subtrochanteric fracture of the right proximal femur with surrounding hemorrhage and numerous distracted fragments. 7. There is a small amount of intramuscular hemorrhage within the right gluteal, adductor, and proximal thigh musculature. 8. Additional findings above. ACT 112: Negative or not required by law. Electronically signed by: Saleem Doll M.D. 07/31/2022 10:[address] 07/31/22 09:00 CT chest diagnostic wo con CLINICAL HISTORY: hypoxia TECHNIQUE: Multidetector row helical CT of the chest was performed. Coronal and sagittal reformations were obtained. Automated dose lowering techniques and/or adjustment according to patient size were utilized for this exam. CT DOSE: 582.33 mGycm Comparison: Comparison is made to CT chest 07/29/2022 FINDINGS: Lungs and pleura: There is atelectasis in the left lung with collapse of left lower lobe, new from prior exam. Mild atelectasis is in the right lower lobe as well. Endotracheal tube terminates approximately 6 cm above the thor. Heart and pericardium: Cardiomegaly is seen with biatrial enlargement. Vessels: The pulmonary trunk is enlarged measuring 40 mm. Moderate atherosclerotic disease is seen. Stable ectasia of the ascending aorta measuring up to 40 mm. Mediastinum and enedelia: Subcentimeter lymph nodes are seen. Chest wall and lower neck: Unremarkable. Abdomen: Enteric tube terminates within the stomach. Bones: Right-sided rib fractures are again seen. Old healed rib fractures are noted alongside degenerative changes. IMPRESSION: 1. There is interval atelectasis of the left greater than right lower lung with collapse of the left lower lobe. Superimposed pneumonia/aspiration cannot be entirely excluded. 2. Redemonstration of rib fractures. 3. Pulmonary hypertension. ACT 112: Negative or not required by law. Electronically signed by: Abner Shah M.D. 07/31/2022 10:[address] 07/31/22 09:32 CT SCAN OF THE ABDOMEN AND PELVIS WITHOUT IV CONTRAST; CT SCAN OF THE RIGHT HIP WITHOUT IV CONTRAST CLINICAL HISTORY: Fall. Hypoxia. Change in mental status. Right hip pain. COMPARISON STUDY: Abdominal CT dated 04/13/2022. Radiographs of the right hip dated 07/29/2022. TECHNIQUE: CT scan of the abdomen and pelvis is performed from the lung bases to the proximal femora. Additionally, CT scan of the right hip is performed from the bony pelvis to the femoral shaft. Images for both examination are reviewed in the axial, sagittal, and coronal planes. IV contrast was not administered for this examination as per the referring clinician. Note that the examinations were performed and significantly suboptimal fashion without oral and IV contrast. The examination is compromised by motion artifact, as well as by streak artifact from the arms which could not be elevated above the abdomen or pelvis. A dose lowering technique was utilized adhering to the principles of ALARA. CT DOSE: 1389.54 mGycm FINDINGS: Lung bases: The heart is top normal in size and without pericardial effusion. The coronary arteries are densely calcified. There is diminished attenuation of the cardiac blood pool as compared to the myocardium suggesting anemia. There is dense left lower lobe consolidation. Segmental atelectasis is seen at the right lung base. Trace pleural effusion is seen on the left. Liver: The unenhanced liver is normal in size, contour, and attenuation. There is no intrahepatic biliary ductal dilatation. Gallbladder: Unremarkable. Spleen: Normal in size and attenuation. Pancreas: There is near complete fatty atrophy of the pancreas. Adrenal glands: Unremarkable. Kidneys: The unenhanced kidneys demonstrate cortical atrophy and are without hydronephrosis. There are no renal calculi identified. There is no evidence of contour deforming renal mass lesion. Abdominal vasculature: The abdominal aorta is normal in course and caliber noting advanced atherosclerotic calcification. Stomach and bowel: The enteric tube is in place and terminates in the gastric fundus. There is mild to moderate colonic fecal retention. No bowel obstruction is seen. The appendix is normal as visualized. Peritoneum: There is trace free fluid in the pelvis. No intraperitoneal free air is seen. Lymphadenopathy: None. Pelvic viscera: The bladder is decompressed around a Peña catheter and grossly unremarkable. The prostate gland is diminutive and heterogeneous. The seminal vesicles are normal as imaged. Skeletal structures: The skeletal structures are osteopenic. The bony pelvis and left proximal femur are intact. See below for discussion of the right hip. There are acute to subacute appearing right anterior fourth through seventh rib fractures. Additional bilateral rib fractures are likely chronic. There is a mild chronic compression deformity of L1. Moderate lumbosacral spondylosis is observed. No lytic or blastic lesions are seen. RIGHT HIP: There is a comminuted and displaced intertrochanteric/subtrochanteric fracture of the right proximal femur with numerous distracted fragments and surrounding hemorrhage. The larger fragments are offset by 1.5 cm. The visualized right hemipelvis appears intact. There is a small amount of intramuscular hemorrhage within the right gluteal, adductor, and proximal thigh musculature. Soft tissue edema overlies the right hip. IMPRESSION: 1. Significantly suboptimal examination without oral and IV contrast. The examinations are also compromised by streak and motion artifact. 2. There is dense left lower lobe airspace consolidation. Correlate clinically for evidence of pneumonia/aspiration pneumonitis. 3. There is no evidence of solid organ injury in the abdomen or pelvis on this unenhanced examination. 4. There are acute to subacute appearing right anterior rib fractures. Correlate for point tenderness. 5. Trace nonspecific free fluid is seen in the pelvis. 6. There is a comminuted and displaced intertrochanteric/subtrochanteric fracture of the right proximal femur with surrounding hemorrhage and numerous distracted fragments. 7. There is a small amount of intramuscular hemorrhage within the right gluteal, adductor, and proximal thigh musculature. 8. Additional findings above. ACT 112: Negative or not required by law. Electronically signed by: Saleem Doll M.D. 07/31/2022 10:24 AM Chest X-Ray 08/09/22 10:45 XR chest 1V portable HISTORY: 82 years-old Male resp failure, worsening hypoxia acute respiratory failure COMPARISON: 08/07/2022 TECHNIQUE: AP view of the chest FINDINGS: Interval removal of the left IJ central venous catheter. Status post placement of a right-sided PICC with distal tip in the expected location of the mid SVC. Cardiac mediastinal and hilar silhouettes are unchanged. Small left greater than right pleural effusions. Pulmonary vascular congestion. Multifocal intermixed interstitial and alveolar opacities are redemonstrated which have mildly improved. Degenerative changes of the shoulders and spine. IMPRESSION: 1. Cardiomegaly with mild pulmonary edema. 2. Patchy bilateral airspace opacities are redemonstrated, mildly improved from the previous study. 3. Status post placement of a right-sided PICC. No pneumothorax. ACT 112: Negative or not required by law. The above report was generated using voice recognition software. It may contain grammatical, syntax or spelling errors. Electronically signed by: Vipul Larios M.D. 08/09/2022 12:23 PM Videofluoroscopic Swallow 08/12/22 14:00 VIDEO SWALLOW STUDY CLINICAL HISTORY: Aspiration. COMPARISON STUDY: No priors. Fluoroscopy time: 4.3 minutes Exposure: 74.05 mGy FINDINGS: Fluoroscopic guidance was provided to the Department of Speech Pathology in performing a video swallow study. The patient consumed barium impregnated pudding, cracker with paste, thickened liquids, and thin barium with swallowing mechanism was observed in real-time. There was silent aspiration seen with thin barium. There was pharyngeal penetration without clear aspiration seen with the mildly thickened liquid textures. No penetration or aspiration was seen with the pudding or cracker with paste textures. There was delayed pharyngeal clearance and pharyngeal residuals. IMPRESSION: 1. Silent aspiration was seen with thin barium. 2. There is pharyngeal penetration without aspiration seen with thickened liquids. 3. Disordered swallowing as above. See dedicated speech pathology report for detailed findings and recommendations. Dictated: 08/12/2022 2:43 PM Transcribed: 08/12/2022 3:00 PM [place] [id number] [facility] Electronically signed by: Saleem Doll M.D. 08/12/2022 3:13 PM PG Care Time/CCT Total # of Minutes Spent Total Time Spent with Patient: Total time spent is greater than 50% in coordination of care (as documented) at patient's floor/unit and/or counseling patient: Coding Level of Care Code 41451 INT INP/OBS CARE 3/75MIN Diagnoses Aspiration into airway T17.908A Dysphagia R13.10
[2022-08-13] MEDS ORDERED: [UNRECOGNIZED DRUG - OTHER] IV SCH (16:00)
[2022-08-13] MEDS ORDERED: CENTRAL TPN IV SCH (16:00)
[2022-08-13] MEDS: HEPARIN SODIUM/DEXTROSE 25,000 UNITS/500 ML BAG IV SCH (16:17)
[2022-08-13] MEDS: LATANOPROST 0.005% OP SOLN 2.5 ML BTL OPB SCH (19:58)
[2022-08-13] MEDS: LANTUS PER UNIT CHARGE SQ SCH (20:01)
[2022-08-14] MEDS: INSULIN ASPART PER UNIT CHARGE SC SCH ×4 (00:08→18:36)
[2022-08-14] MEDS: METOPROLOL TARTRATE 1 MG/ML VIAL IV SCH ×3 (00:11→13:18)
[2022-08-14] MEDS: AMIODARONE / D5W 360 MG/200 ML BAG IV SCH (04:44)
[2022-08-14] MEDS: ALBUT/IPRATROP 3MG/0.5MG NEB 3 ML VIAL NEB SCH ×4 (07:04→19:06)
[2022-08-14] MEDS: SODIUM CHLOR 7% 4 ML NEB NEB SCH ×2 (07:04→19:05)
[2022-08-14 07:38] LABS: BUN Creatinine Ratio 46.2 (10-20); Calcium 7.4 mg/dl (8.5-10.1); Creatinine Clr Calc Pharmacy 91.7 ml/min; Est GFR (African American) 104.3 ml/min; Magnesium 1.8 mg/dl (1.7-2.4); Phosphorus 2.1 mg/dl (2.5-4.9); Potassium 3.9 mmol/L (3.5-5.1)
[2022-08-14 07:47] LABS: Partial Thromboplastin Ratio 1.6; Partial Thromboplastin Time 44.2 Seconds (21.0-31.0)
--- NOTE | 2022-08-14 08:32 | Anesthesiology Consultation ---
Date of Service August 14, 2022 Assessment & Plan (1) Encounter for pre-operative examination: Chart Review Chart Review: Acceptable Risk for Surgery and Patient NOT seen in Pre Admission Testing Consults Requested none History Surgery Operation Date: 07/31/22 12:30 Proposed Procedures p Intramedullary Trochanteric Nail Hip Right - Beto Feliz MD Operation Date: 07/31/22 12:30 Proposed Procedures p Intramedullary Trochanteric Nail Hip Right - Beto Feliz MD Operation Date: 08/14/22 16:30 Proposed Procedures p Peg Tube Placement Dr Franky Wilkins, Height/Weight Height: 5 ft 11 in Weight: 83 kg Allergies Allergy/AdvReac Type Severity Reaction Status Date / Time meperidine AdvReac Intermediate OVER-SEDATION, Verified 07/29/22 19:58 N/V W/ SYNCOPE sertraline [From Zoloft] AdvReac Intermediate Dizziness Verified 07/29/22 19:58 Medications Home Medications Medication Instructions Recorded Confirmed Last Taken latanoprost 0.005 % eye drops 1 drp OPB HS 06/28/18 07/29/22 04/12/22 mecobalamin (vitamin B12) 1,000 1,000 mcg PO QAM 03/21/20 07/29/22 04/12/22 mcg chewable tablet leuprolide acetate (6 month) 45 mg 45 mg IM Q24W #1 ea 04/25/20 07/29/22 02/08/22 intramuscular syringe kit (Lupron Depot) warfarin 3 mg tablet 4.5 mg PO WK 06/18/21 07/29/22 04/11/22 blood sugar diagnostic #100 ea 02/25/22 06/28/22 Unknown carvedilol 6.25 mg tablet 6.25 mg PO BID #180 tabs 03/01/22 07/29/22 04/12/22 amiodarone 200 mg tablet 200 mg PO QAM #90 tabs 03/18/22 07/29/22 04/12/22 metformin 500 mg tablet 500 mg PO BID #180 tabs 04/08/22 07/29/22 04/12/22 amlodipine 2.5 mg tablet 2.5 mg PO DAILY #90 tabs 06/28/22 07/29/22 Unknown atorvastatin 40 mg tablet 40 mg PO HS #90 tabs 07/17/22 07/29/22 Unknown lisinopril 10 mg tablet 10 mg PO QAM 07/29/22 07/29/22 Unknown polyethylene glycol 3350 17 gram 17 g PO BID PRN Constipation 07/29/22 07/29/22 Unknown oral powder packet (Miralax) warfarin 3 mg tablet 3 mg PO [id number] 07/29/22 07/29/22 Unknown Active Medications Generic Name Dose Route Start Last Admin Trade Name Freq PRN Reason Stop Dose Admin Albuterol 3 ml 08/04/22 15:00 08/14/22 07:04 Albut/Ipratrop 3mg/0.5mg Neb 3 Ml Vial NEB 09/03/22 14:59 3 ml QIDR AILEEN Administration Protocol Heparin Sodium (Beef Lung) 5 ml 08/03/22 09:56 08/07/22 14:00 Heparin 10 Unit/Ml 5 Ml Flush FLUSH 09/02/22 09:55 5 ml PRN PRN Administration Flush Heparin Sodium/Dextrose 25,000 units in 500 mls @ 19 mls/hr 08/09/22 10:00 08/14/22 08:03 Heparin Sodium/Dextrose IV 09/08/22 09:59 1,050 units/hr .Q24H AILEEN 21 mls/hr Titration Protocol 950 UNITS/HR Folic Acid 1 mg/ Syringe 10 mls @ 5 mls/min 08/10/22 11:00 08/13/22 08:36 IV 09/09/22 10:59 5 mls/min QAM AILEEN Administration Amiodarone HCl/Dextrose 360 mg in 200 mls @ 16.667 mls/hr 08/10/22 20:30 08/14/22 06:58 Nexterone / D5w IV 09/09/22 20:29 0.5 mg/min .Q12H AILEEN 16.7 mls/hr Infusion 0.5 MG/MIN Pantoprazole Sodium 40 mg/ 10 mls @ 5 mls/min 08/11/22 11:00 08/13/22 11:30 Syringe IV 09/10/22 10:59 5 mls/min DAILY@1100 AILEEN Administration Amino Acids/Dextrose 1,067 ml/ 1,067 mls @ 44 mls/hr 08/13/22 16:00 08/14/22 06:58 Nutrition (Parenteral) IV 08/14/22 15:59 44 mls/hr .Q24H AILEEN Infusion Protocol Insulin Aspart 0 units 08/06/22 00:00 08/14/22 06:21 Insulin Aspart Per Unit SC 09/05/22 00:00 3 units Q6 AILEEN Administration Insulin Glargine 5 units 08/10/22 21:00 08/13/22 20:01 Lantus Per Unit Charge SQ 09/09/22 20:59 5 units HS AILEEN Administration Latanoprost 1 drops 07/30/22 21:00 08/13/22 19:58 Latanoprost 0.005% Op Soln 2.5 Ml Btl OPB 08/29/22 20:59 1 drops HS AILEEN Administration Lorazepam 0.25 mg 08/12/22 17:43 08/12/22 18:11 Lorazepam 2 Mg/1 Ml Vial IV 09/11/22 17:44 0.25 mg Q12H PRN Administration Anxiety Metoprolol Tartrate 5 mg 08/13/22 12:00 08/14/22 06:22 Metoprolol Tartrate 1 Mg/Ml Vial IV 09/12/22 11:59 5 mg Q6 AILEEN Administration Morphine Sulfate 2 mg 08/11/22 12:03 08/12/22 17:53 Morphine Sulfate 2 Mg/Ml Carp IV 08/25/22 12:14 2 mg Q3H PRN Administration pain Sodium Chloride 4 ml 08/02/22 19:00 08/14/22 07:04 Sodium Chlor 7% 4 Ml Neb NEB 09/01/22 18:59 4 ml BIDR AILEEN Administration NPO Date Last Intake of Fluids: 07/30/22 Time Last Intake of Fluids: 08:26 Date Last Intake of Solids: 07/29/22 Time Last Intake of Solids: 12:00 Past Medical History Medical History Acute hemorrhage Acute hypoxemic respiratory failure Acute spont intraparenchymal hemorrhage assoc w/ hypertension Advanced care planning/counseling discussion Antithrombin III deficiency FOLLOWS PCP > DR. TAN/LOC - ON COUMADIN ARDS (adult respiratory distress syndrome) Aspiration into airway Aspiration pneumonia Blurred vision, bilateral Cataract RT/LEFT Chest pain Constipation Diabetes mellitus type 2 in obese Dizziness Forgetfulness "RELATED TO AGE" Glaucoma LEFT EYE History of adenomatous polyp of colon History of atrial fibrillation History of hemorrhagic stroke with residual hemiparesis History of prostate cancer History of skin cancer MELANOMA AND BASAL CELL Hx of deep venous thrombosis SEVERAL YEARS AGO, REASON FOR COUMADIN Hx pulmonary embolism WITH DVT ? YEAR "A FEW YEARS AGO" Hyperlipidemia Hypertension Hypertensive heart disease preserved LV function Hypertensive urgency Obstructive sleep apnea no device used (could not tolerate) Osteoarthritis Palliative care by specialist Prostate cancer Refusal of blood transfusions as patient is [employer]regational Septic shock Thoracic ascending aortic aneurysm UNSURE ABOUT DX Past Family History Family History Mother Venous embolism and thrombosis of deep vessels of lower extremity Cancer Father Stroke syndrome Other No family history of adverse response to anesthesia No family history of bleeding disorder No pertinent family history Denies family history of Ovarian cancer Prostate cancer Coronary heart disease Alzheimer disease Bipolar disorder Breast cancer COPD (chronic obstructive pulmonary disease) Colorectal cancer Asthma Past Surgical History Surgical History History of cardioversion (11/2018) X 4--last 06/22/21 @ [facility] History of colonoscopy History of local excision of skin lesion MULTIPLE REMOVAL History of nasal septoplasty multiple-with Celon turbinate reduction History of tooth extraction Hx of colonoscopy Hx of prostate biopsy Social History Smoking Status: Never smoker Do You Dip or Chew Tobacco: No Hx Alcohol Use: No Alcohol type: wine alcohol intake frequency: holidays/special occasions only Hx Substance Use: No substance use type: does not use Physical Exam Vital Signs Last Vital Signs Temp 98.2 F 08/14/22 07:23 Pulse 110 H 08/14/22 07:43 Resp 24 08/14/22 07:43 BP 131/87 08/14/22 07:23 Pulse Ox 92 08/14/22 07:43 O2 Del Method Nasal Cannula 08/14/22 07:43 O2 Flow Rate 2 08/14/22 07:43 FiO2 70 08/11/22 07:51 Testing Laboratory Results 08/13/22 06:23 08/14/22 06:16 PT 11.1 Seconds (9.0-12.0) 08/09/22 10:41 INR 1.0 (0.9-1.1) 08/09/22 10:41 APTT 44.2 Seconds (21.0-31.0) H 08/14/22 06:16 08/07/22 17:34 Gram Stain - Final Sputum, Expectorated Sputum Culture - Final Moderate normal agustín. 08/01/22 15:27 Aerobic Blood Culture - Final Blood No growth in Aerobic bottle after 5 days. Anaerobic Blood Culture - Final 08/01/22 15:26 Aerobic Blood Culture - Final Blood No growth in Aerobic bottle after 5 days. Anaerobic Blood Culture - Final No growth in Anaerobic bottle after 5 days. 07/31/22 10:28 Aerobic Blood Culture - Final Blood No growth in Aerobic bottle after 5 days. Anaerobic Blood Culture - Final No growth in Anaerobic bottle after 5 days. 07/31/22 10:16 Aerobic Blood Culture - Final Blood Coag neg staph not lugdunensis Anaerobic Blood Culture - Final Coag neg staph not lugdunensis 07/31/22 12:35 Gram Stain - Final Ba Lavage,Left Lower Lobe Bronchial Culture - Final Moderate normal agustín. 08/14/22 08/14/22 06:16 00:04 POC Glucose 209 H 183 H Electrocardiogram Date: 08/09/22 Findings: + AFIB @ Chest X-Ray Date: 08/09/22 Findings: + infiltrate (improved b/l) and + pulmonary vascular congestion (mild) Echocardiogram Date: 08/01/22 EF: 60-65 LV Function: normal Valvular Disease: + (mild)
[2022-08-14] MEDS: FOLIC ACID 1 MG in SYRINGE 9.8 ML IV SCH (09:05)
--- NOTE | 2022-08-14 09:12 | History & Physical Bridge Note ---
Date of Service August 14, 2022 History & Physical Bridge Note I have examined the patient, reviewed the History & Physical and in the interval since the performance of the History & Physical I have noted the following changes of clinical significance: no changes noted. Patient has been evaluated and cleared by anesthesia for EGD with PEG placement today. Patient denies any n/v/abdominal pain, fevers, GIB. Heparin GGT has been held. Remains NPO. PE: A&Ox3. Tachycardic. irregular rhythm. Lungs with rhonchi, diminished bases. Abdomen soft, nontender. Normal bowel sounds. LE trace pedal edema. A/P: Patient is a 82 y.o. male with a complex history admitted after a fall ~2 weeks ago with aspiration, dysphagia and feeding difficulties. -NPO. -Heparin is being held. Okay to hold for [address] Wilkins for PEG placement today. -Ancef 2 g continuous process tanner rotary drum to GI lab. -EGD with PEG placement today. Supervising Physician Co-Signing Physician Notes Agree with CORINNE Crawford as above Abd: Soft, NT, ND, +BS Continue current therapy and supportive care Proceed with EGD with PEG tube placement today
[2022-08-14] MEDS: PANTOprazole 40 MG in SYRINGE 0 ML IV SCH (10:40)
[2022-08-14] MEDS ORDERED: LIDOCAINE 2% MPF LOCAL 5 ML VIAL ONE (10:52)
[2022-08-14] MEDS ORDERED: PROPOFOL IV EMULSION 10 MG/ML 20 ML VIAL IV ONE ×2 (10:52→11:21)
[2022-08-14] MEDS ORDERED: ONDANSETRON INJ 2 MG/ML 2 ML VIAL ONE (11:15)
[2022-08-14] MEDS ORDERED: fentaNYL citrate PF 100 MCG/2 ML VIAL ONE (11:16)
[2022-08-14] MEDS ORDERED: MIDAZOLAM HCL 1 MG/ML 2ML VIAL ONE (11:16)
[2022-08-14] MEDS ORDERED: PHENYLEPHRINE 100MCG/ML 5ML SYR ONE (11:36)
--- NOTE | 2022-08-14 12:14 | GI REPORT ---
Patient Name: Saira Jones Procedure Date: 08/14/2022 11:32 AM Date of : 1940 Admit Type: Inpatient Age: 82 Gender: Male Attending MD: Kale Wilkins DO, Procedure: Upper GI endoscopy Providers: Kale Wilkins DO Referring MD: Kerwin Ventura Indications: Place PEG because patient is unable to eat due to stroke (CVA) Medicines: Monitored Anesthesia Care Complications: No immediate complications. Estimated Blood Loss: Estimated blood loss: none. Procedure: Pre-Anesthesia Assessment: - Prior to the procedure, a History and Physical was performed, and patient medications and allergies were reviewed. The patient's tolerance of previous anesthesia was also reviewed. The risks and benefits of the procedure and the sedation options and risks were discussed with the patient. All questions were answered, and informed consent was obtained. Prior Anticoagulants: The patient has taken heparin, last dose was day of procedure. ASA Grade Assessment: IV - A patient with severe systemic disease that is a constant threat to life. After reviewing the risks and benefits, the patient was deemed in satisfactory condition to undergo the procedure. After obtaining informed consent, the endoscope was passed under direct vision. Throughout the procedure, the patient's blood pressure, pulse, and oxygen saturations were monitored continuously. The Endoscope was introduced through the mouth, and advanced to the second part of duodenum. The upper GI endoscopy was accomplished without difficulty. The patient tolerated the procedure well. Findings: The esophagus was normal. The entire examined stomach was normal. Placement of an externally removable PEG with no T-fasteners was successfully completed. The external bumper was at the 2.0 cm marking on the tube. The examined duodenum was normal. Impression: - Normal esophagus. - Normal stomach. - Normal examined duodenum. - An externally removable PEG placement was successfully completed. - No specimens collected. Recommendation: - Return patient to [facility] for [facility] care. - Please follow the post-PEG recommendations including: Nutrition consult for formula and volume and start using PEG today. - Resume heparin at prior dose today. Kale Wilkins DO 08/14/2022 12:13:33 PM This report has been signed electronically. Note Initiated On: 08/14/2022 11:32 AM Number of Addenda: 0 I attest to the content of the Intraoperative Record and orders documented therein, exceptions below {[id number]}
--- NOTE | 2022-08-14 13:31 | Anesthesiology Progress Note ---
Date of Service August 14, 2022 Anesthesia Post Procedure Vital Signs Vital Signs: Temp Pulse Pulse Resp BP BP BP 08/14/22 13:18 110 H 132/88 08/14/22 13:04 97.9 F 96 H 18 138/71 08/14/22 12:25 122 H 18 106/71 08/14/22 12:05 124 H 18 92/68 L 08/14/22 11:48 118 H 18 96/58 L 08/14/22 10:58 98.6 F 100 H 16 145/82 H 08/14/22 07:43 110 H 24 08/14/22 07:23 98.2 F 91 H 18 131/87 08/14/22 06:22 125 H 145/76 H 08/14/22 03:03 97.5 F L 101 H 18 132/76 08/14/22 00:29 08/14/22 00:11 86 138/82 08/13/22 22:45 98.1 F 111 H 18 120/81 08/13/22 19:50 08/13/22 19:45 97.5 F L 98 H 18 139/84 08/13/22 19:31 84 18 08/13/22 18:02 112 H 145/82 H 08/13/22 15:33 90 08/13/22 15:24 116 H 22 08/13/22 15:10 98.1 F 95 H 18 145/82 H Pulse Ox O2 Del Method O2 Flow Rate 08/14/22 13:18 08/14/22 13:04 94 Oxymask 5 08/14/22 12:25 98 Oxymask 10 08/14/22 12:05 99 Oxymask 10 08/14/22 11:48 96 Oxymask 10 08/14/22 10:58 94 Room Air 08/14/22 07:43 92 Nasal Cannula 2 08/14/22 07:23 97 Nasal Cannula 2.0 08/14/22 06:22 08/14/22 03:03 92 Nasal Cannula 2 08/14/22 00:29 93 Nasal Cannula 2 08/14/22 00:11 08/13/22 22:45 90 Nasal Cannula 2 08/13/22 19:50 Nasal Cannula 2 08/13/22 19:45 94 Nasal Cannula 2 08/13/22 19:31 94 Nasal Cannula 2 08/13/22 18:02 08/13/22 15:33 08/13/22 15:24 92 Nasal Cannula 2.5 08/13/22 15:10 92 Nasal Cannula 3.0 Pain Intensity Right Hip: Pain Intensity: 0 Transfer of Care Handoff Completed per policy Notes Mental Status: alert / awake / arousable and participated in evaluation Patient Amnestic to Procedure: Yes Nausea / Vomiting: adequately controlled Pain: adequately controlled Airway Patency, RR, SpO2: stable & adequate BP & HR: stable & adequate Hydration State: stable & adequate Anesthetic Complications: no major complications apparent and Pt Satisfied with anesthetic care
[2022-08-14] MEDS ORDERED: METOPROLOL TARTRATE 1 MG/ML VIAL IV PRN (14:45)
[2022-08-14] MEDS: AMIODARONE 200 MG TAB NG SCH (15:33)
[2022-08-14] MEDS: carvediloL 6.25 MG TAB GT SCH (15:35)
[2022-08-14] MEDS: MoRPHine SULFATE 2 MG/ML CARP IV PRN ×2 (15:40→19:52)
[2022-08-14] MEDS ORDERED: [UNRECOGNIZED DRUG - OTHER] IV SCH (16:00)
[2022-08-14] MEDS ORDERED: CENTRAL TPN IV SCH (16:00)
[2022-08-14] MEDS: TUBE FEEDING WATER FLUSH GT SCH ×2 (16:09→20:55)
[2022-08-14] MEDS ORDERED: carvediloL 6.25 MG TAB PO SCH (17:00)
--- NOTE | 2022-08-14 17:32 | Hospitalist Progress Note ---
Date of Service August 14, 2022 Assessment & Plan (1) Dysphagia: Plan: severe video swallow showed severe impairment of his UES (upper esophageal sphincter); no epiglottis inversion; no pharyngeal constriction or hyoid excursion acute on chronic problem high risk, he aspirates SILENTLY with thins PEG tube placement 08/14/2022 & feedings discussed with nutrition to start feedings on 08/15 Feedings to be started at Peptamen 1.5 @20 mL an hour and advance by 20 ml q. 8hr until 60 mL hour continuous for water flushes at 100 mL every 4 Ultimate goal be eventually transition to nocturnal feeding TPN in meantime via PICC anticipate discontinuation of TPN in the morning of 08/15/2022 (2) Atrial fibrillation with RVR: Plan: acute improved control moderate risk Nydeggar NG tube was placed amiodarone 200 via feeding tube twice daily carvedilol 6.25 twice daily with backup IV metoprolol for rate control recent TSH wnl recent echo with preserved EF (08/01/22) but grade 2 diastolic dysfunction cont heparin infusion per protocol for anticoagulation to restart at the appropriate time after PEG tube placement consideration of long-term anticoagulation at time of discharge patient was previously on warfarin prehospital consider alternative agent. Patient will certainly be at rehab and we will time to make this final decision (3) Acute on chronic diastolic CHF (congestive heart failure): Plan: acute decompensation resolved not currently actively diuresing at this point rapid ventricular rate did contribute volume assesent with TPN use for prn lasix belinda resolved (4) Acute hypoxemic respiratory failure: Plan: severe initially now resolving- 2nd to b/l aspiration pneumonia (RUL, LLL, etc) improved with diuresis; oxygen tapered to 3 l NC O2 s/p code blue on 07/31/2022. intubated by ICU attending at that time - noted to have purulent secretions in the epiglottis & vocal cords at time of intubation. s/p bronch - cultures from bronch negative. extubated 08/01/22. completed 7-day course of IV zosyn. cont duonebs qid. cont saline nebs. steroids been discontinued cont pulmonary toilet repeat COVID testing neg. Flu/RSV testing neg. (5) 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: Plan: s/p fall on admission orthopedics consulted defers surgical correction due to medical comorbidities, non weight bearing orthopedic surgeon Dr Feliz spoke to family. additional rib fractures, no additional injuries (6) Acute blood loss anemia: Plan: Moderate risk now resolving 2nd to bleeding into right hip/buttock/thigh from hip fracture, numerous blood draws since admission, etc. no overt GI bleeding. Fecal occult blood is NEGATIVE. Hindu jameson precludes any blood transfusion. he is s/p 3 doses of IV venofer this admission. fe studies show very adequate Fe storage. (7) Diabetes mellitus type 2 in obese: Plan: chronic and controlled, Last a1c 6.1 03/2022. Holding home metformin. Cont novolog SSI. Cont lantus 5 units HS. 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 Reversed s/p vitamin K. Has not been on any anticoagulation due to acute blood loss anemia. However, risk of VTE is very high due to critical illness, bed-bound status, and prior VTE history. Cont heparin infusion - standard dosing. Discussion with coagulation specialist upcoming (9) SDAT (senile dementia of Alzheimer's type): Plan: chronic and stable, has some sundowning Memantine 5mg BID. (10) Goals of care, counseling/discussion: Plan: Palliative care is consulted, /family to continue discussing his goals of care he does remain DNR/DNI Family is wishing to have supportive care in hopes of presenting to rehabilitation facility (11) History of hemorrhagic stroke with residual hemiparesis: Plan: right-sided ICH 01/2022 with residual hemiparesis on left. most recent head CT without hemorrhage. Admission and Anticipated Discharge Date Admission Date: July 29, 2022 Subjective Patient was [facility] he was tolerating the PEG tube without much discomfort, little bit of pain transitioning to water flushes and medications tonight we will transition to tube feeds tomorrow. Physical Exam Physical Exam: Awake alert appropriate cardiac exam is regular with a murmur lungs are clear abdomen has PEG tube in middle abdomen his abdomen otherwise is soft is mildly uncomfortable Results & Data Results & Data Vital Signs (Past 12 Hours) Vital Signs Temp Pulse Pulse Resp BP BP BP 08/14/22 13:18 110 H 132/88 08/14/22 13:04 97.9 F 96 H 18 138/71 08/14/22 12:25 122 H 18 106/71 08/14/22 12:05 124 H 18 92/68 L 08/14/22 11:48 118 H 18 96/58 L 08/14/22 10:58 98.6 F 100 H 16 145/82 H 08/14/22 08:00 08/14/22 07:43 110 H 24 08/14/22 07:23 98.2 F 91 H 18 131/87 08/14/22 06:22 125 H 145/76 H Pulse Ox O2 Del Method O2 Flow Rate 08/14/22 13:18 08/14/22 13:04 94 Oxymask 5 08/14/22 12:25 98 Oxymask 10 08/14/22 12:05 99 Oxymask 10 08/14/22 11:48 96 Oxymask 10 08/14/22 10:58 94 Room Air 08/14/22 08:00 Nasal Cannula 2 08/14/22 07:43 92 Nasal Cannula 2 08/14/22 07:23 97 Nasal Cannula 2.0 08/14/22 06:22 Laboratory Results Reviewed PTT Reviewed chemistry Spoke to nutrition regarding tube feeds starts PG Care Time/CCT Total # of Minutes Spent Total Time Spent with Patient: Total time spent is greater than 50% in coordination of care (as documented) at patient's floor/unit and/or counseling patient: Coding Level of Care Code 72540 SUB INP/OBS CARE 3/50MIN Diagnoses Dysphagia R13.10 Atrial fibrillation with RVR I48.91 Acute on chronic diastolic CHF (congestive heart failure) I50.33 Acute hypoxemic respiratory failure J96.01 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
[2022-08-14] MEDS: LANSOPRAZOLE 15 MG SOLTAB GT SCH (20:56)
[2022-08-14] MEDS: LANTUS PER UNIT CHARGE SQ SCH (21:26)
[2022-08-14] MEDS: LATANOPROST 0.005% OP SOLN 2.5 ML BTL OPB SCH (21:26)
[2022-08-14] MEDS: HEPARIN SODIUM/DEXTROSE 25,000 UNITS/500 ML BAG IV SCH (21:29)
[2022-08-15 00:05] LABS: Partial Thromboplastin Ratio 1.6; Partial Thromboplastin Time 43.1 Seconds (21.0-31.0)
[2022-08-15] MEDS: TUBE FEEDING WATER FLUSH GT SCH ×6 (00:19→20:06)
[2022-08-15] MEDS: INSULIN ASPART PER UNIT CHARGE SC SCH ×4 (00:19→18:11)
[2022-08-15] MEDS: MoRPHine SULFATE 2 MG/ML CARP IV PRN ×3 (01:15→21:42)
[2022-08-15] MEDS: SODIUM CHLOR 7% 4 ML NEB NEB SCH ×2 (06:51→20:15)
[2022-08-15] MEDS: ALBUT/IPRATROP 3MG/0.5MG NEB 3 ML VIAL NEB SCH ×4 (06:51→20:15)
[2022-08-15 06:59] LABS: BUN Creatinine Ratio 52.4 (10-20); Calcium 7.2 mg/dl (8.6-10.3); Creatinine Clr Calc Pharmacy 94.6 ml/min; Eosinophils # (auto) 0.16 K/uL (0-0.50); Eosinophils % (auto) 2.3 %; Est GFR (African American) 105.6 ml/min; Est GFR (Non-African American) 91.1 ml/min; Hematocrit (blood only) 24.2 % (42.0-52.0); Hemoglobin 7.9 g/dl (14.0-18.0); Immature Granulocytes # (auto) 0.04 K/uL (0.01-0.20); Immature Granulocytes % (auto) 0.6 %; Lymphocytes # (auto) 0.62 K/uL (1.2-3.4); Magnesium 1.8 mg/dl (1.7-2.4); Mean Corpuscular Hemoglobin 32.8 pg (25.0-34.0); Mean Corpuscular Hgb Conc 32.6 g/dL (32.0-36.0); Mean Corpuscular Volume 100.4 fL (80.0-100.0); Mean Platelet Volume 10.4 fL (9.4-12.4); Monocytes # (auto) 0.32 K/uL (0.11-0.59); Monocytes % (auto) 4.6 %; Neutrophils # (auto) 5.77 K/uL (1.40-6.50); Neutrophils % (auto) 83.5 %; Nucleated RBC # (auto) 0.02 K/uL (0-0.12); Nucleated RBC % (auto) 0.3 %; Phosphorus 2.6 mg/dl (2.5-4.9); Platelet Count 141 K/uL (130-400); Potassium 4.3 mmol/L (3.5-5.1); RDW Coefficient of Variation 16.6 % (11.5-14.5); RDW Standard Deviation 60.2 fL (36.4-46.3); Red Blood Count 2.41 M/uL (4.70-6.10); White Blood Count 6.91 K/ul (4.8-10.8)
[2022-08-15 07:24] LABS: Partial Thromboplastin Time 81.7 Seconds (21.0-31.0)
[2022-08-15 07:31] LABS: Polychromasia 1+; Tear Drop Cells 1+
[2022-08-15] MEDS: HEPARIN SODIUM/DEXTROSE 25,000 UNITS/500 ML BAG IV SCH (07:44)
[2022-08-15] MEDS ORDERED: TPN~STOP ORDER ONE (07:59)
--- NOTE | 2022-08-15 08:21 | Hospitalist Progress Note ---
Date of Service August 15, 2022 Assessment & Plan (1) Dysphagia: Plan: severe video swallow showed severe impairment of his UES (upper esophageal sphincter); no epiglottis inversion; no pharyngeal constriction or hyoid excursion acute on chronic problem high risk, he aspirates SILENTLY with thins PEG tube placement 08/14/2022 & feedings discussed with nutrition started feedings on 08/15 Feedings to be started at Peptamen 1.5 @20 mL an hour and advance by 20 ml q. 8hr until 60 mL hour continuous for water flushes at 100 mL every 4 Ultimate goal be eventually transition to nocturnal feeding Augment magnesium slightly low (2) Atrial fibrillation with RVR: Plan: acute improved control moderate risk still not with complete control. Nydeggar NG tube was placed amiodarone 200 via feeding tube increase twice daily carvedilol 12.5 twice daily with backup IV metoprolol for rate control replete magnesium recent TSH wnl recent echo with preserved EF (08/01/22) but grade 2 diastolic dysfunction cont heparin infusion per protocol for anticoagulation we will consider transition from heparin parenteral infusion to Lovenox twice daily. I do of some concern with the nonrepair of his hip fracture that he is also potential source of bleeding and given the fact that he is a Latter-day if he were to bleed it would provide some challenges. This subsequently if he heals for a period of time perhaps maybe a month we may consider transition to an Eliquis type medication at that time. I did speak with pharmacy today personally on 323 to consider transition to twice daily therapeutic Lovenox dosing (3) Acute on chronic diastolic CHF (congestive heart failure): Plan: acute decompensation resolved not currently actively diuresing at this point rapid ventricular rate did contribute volume assesent with TPN use for prn lasix belinda resolved (4) Acute hypoxemic respiratory failure: Plan: severe initially now resolving- 2nd to b/l aspiration pneumonia (RUL, LLL, etc) improved with diuresis; oxygen tapered to 3 l NC O2 s/p code blue on 07/31/2022. intubated by ICU attending at that time - noted to have purulent secretions in the epiglottis & vocal cords at time of intubation. s/p bronch - cultures from bronch negative. extubated 08/01/22. completed 7-day course of IV zosyn. cont duonebs qid. cont saline nebs. steroids been discontinued cont pulmonary toilet repeat COVID testing neg. Flu/RSV testing neg. (5) 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: Plan: s/p fall on admission orthopedics consulted defers surgical correction due to medical comorbidities, non weight bearing orthopedic surgeon Dr Feliz spoke to family. additional rib fractures, no additional injuries (6) Acute blood loss anemia: Plan: Moderate risk now resolving 2nd to bleeding into right hip/buttock/thigh from hip fracture, numerous blood draws since admission, etc. no overt GI bleeding. Fecal occult blood is NEGATIVE. Latter-day jameson precludes any blood transfusion. he is s/p 3 doses of IV venofer this admission. fe studies show very adequate Fe storage. (7) Diabetes mellitus type 2 in obese: Plan: chronic and controlled, Last a1c 6.1 03/2022. Holding home metformin. Cont novolog SSI. Cont lantus 5 units HS. 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 Reversed s/p vitamin K. Has not been on any anticoagulation due to acute blood loss anemia. However, risk of VTE is very high due to critical illness, bed-bound status, and prior VTE history. Cont heparin infusion - standard dosing. Discussion with coagulation specialist upcoming (9) SDAT (senile dementia of Alzheimer's type): Plan: chronic and stable, has some sundowning Memantine 5mg BID. (10) Goals of care, counseling/discussion: Plan: Palliative care is consulted, /family to continue discussing his goals of care he does remain DNR/DNI Family is wishing to have supportive care in hopes of presenting to rehabilitation facility (11) History of hemorrhagic stroke with residual hemiparesis: Plan: right-sided ICH 01/2022 with residual hemiparesis on left. most recent head CT without hemorrhage. Admission and Anticipated Discharge Date Admission Date: July 29, 2022 Subjective pt is feeling improved some abdominal pain 5/5 in mid abdomen, still with some oxygen requirements, starting TF 08/15/22 Physical Exam Physical Exam: Awake alert appropriate cardiac exam is regular with a murmur lungs are clear abdomen has PEG tube in middle abdomen his abdomen otherwise is soft is mildly uncomfortable Results & Data Results & Data Vital Signs (Past 12 Hours) Vital Signs Temp Pulse Pulse Resp BP BP BP 08/15/22 07:36 97.9 F 113 H 18 126/74 08/15/22 07:30 106 H 08/15/22 07:06 109 H 20 08/15/22 03:10 97.9 F 124 H 18 124/84 08/14/22 22:02 99 H 08/14/22 23:30 127 H 130/58 L 08/14/22 23:35 127 H 130/58 L 08/14/22 23:17 97.3 F L 116 H 18 130/58 L Pulse Ox O2 Del Method O2 Flow Rate 08/15/22 07:36 96 Oxymask 08/15/22 07:30 08/15/22 07:06 94 Oxymask 4 08/15/22 03:10 96 Oxymask 3 08/14/22 22:02 08/14/22 23:30 08/14/22 23:35 08/14/22 23:17 97 Oxymask 3 Laboratory Results Reviewed CBC Reviewed PRP Reviewed magnesium PG Care Time/CCT Total # of Minutes Spent Total Time Spent with Patient: Total time spent is greater than 50% in coordination of care (as documented) at patient's floor/unit and/or counseling patient: Coding Level of Care Code 80316 SUB INP/OBS CARE 3/50MIN Diagnoses Dysphagia R13.10 Atrial fibrillation with RVR I48.91 Acute on chronic diastolic CHF (congestive heart failure) I50.33 Acute hypoxemic respiratory failure J96.01 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
[2022-08-15] MEDS ORDERED: FUROSEMIDE 40 MG/4 ML VIAL IV ONE (08:32)
[2022-08-15] MEDS: PEPTAMEN 1.5 CAL 1,000 ML BAG PEG SCH (08:48)
[2022-08-15] MEDS: FOLIC ACID 1 MG in SYRINGE 9.8 ML IV SCH (08:50)
[2022-08-15] MEDS: AMIODARONE 200 MG TAB NG SCH ×2 (08:50→18:10)
[2022-08-15] MEDS: carvediloL 6.25 MG TAB GT SCH (08:51)
[2022-08-15] MEDS: LANSOPRAZOLE 15 MG SOLTAB GT SCH ×2 (08:51→21:52)
[2022-08-15] MEDS ORDERED: carvediloL 6.25 MG TAB GT ONE (10:12)
[2022-08-15] MEDS ORDERED: carvediloL 6.25 MG TAB PO ONE (10:12)
[2022-08-15] MEDS: traMADol HCL 50 MG TABLET NG PRN ×3 (10:44→22:14)
[2022-08-15] MEDS ORDERED: MAGNESIUM SULFATE / D5W 1 GM/100 ML BAG IV ONE (12:30)
[2022-08-15] MEDS ORDERED: traMADol HCL 50 MG TABLET PO ONE (13:30)
--- NOTE | 2022-08-15 15:58 | Cardiology Progress Note ---
Date of Service August 15, 2022 Assessment & Plan (1) Atrial fibrillation: (2) Chronic anticoagulation: (3) Aortic stenosis, mild: (4) Mitral regurgitation: Plan 1. Atrial fibrillation: No overt symptoms. Unclear if this produces any hemodynamic derangement. Blood pressures been highly variable but he has also been quite ill. In the past he has been more awarae of atrial fibrillation. No symptoms currently. the main effort currently will focus on rate control. Now that he has a PEG tube will have the opportunity to reinitiate oral therapy. Baseline some concerns about blood pressure think we will switch carvedilol to metoprolol. We can continue amiodarone currently. This may provide adequate rate control in addition to facilitating a possible return to sinus rhythm. With respect to anticoagulation it looks like he has been placed on Lovenox. 2. Anticoagulation: Previously on warfarin. Now on Lovenox. Restart oral anticoagulation at the discretion of his primary service. 3. Aortic stenosis: This is only mild and not of current concern. 4. Mitral regurgitation: He does have some degree of mitral regurgitation however it does not warrant further evaluation at this time. Admission and Anticipated Discharge Date Admission Date: July 29, 2022 Subjective The patient reported some discomfort involving the right leg. He was anxious to get out of bed and sit in a chair. He denies significant abdominal complaints. He was not aware of any palpitations. Review of Systems Review of Systems: Per HPI Physical Exam Physical Exam: Constitutional: Alert, cooperative and in no distress. Resting in bed. Some slurred speech HEENT: Sclerae anicteric Pulmonary: Clear lungs without expiratory wheezing. Normal respiratory effort. Cardiac: Irregular rhythm with a grade 2/6 holosystolic murmur at the apex, no gallop or rub. Extremities: Right leg rotation. Neurologic: No focal findings. Results & Data Vital Signs (Past 12 Hours) Vital Signs Temp Pulse Pulse Resp BP Pulse Ox O2 Del Method 08/15/22 15:09 36.8 C 109 H 19 91/58 L 93 Nasal Cannula 08/15/22 13:10 132 H 94/64 L 08/15/22 12:21 Nasal Cannula 08/15/22 11:30 36.8 C 123 H 19 93/62 L 93 Nasal Cannula 08/15/22 07:36 36.6 C 113 H 18 126/74 96 Oxymask 08/15/22 07:30 106 H 08/15/22 07:06 109 H 20 94 Oxymask O2 Flow Rate 08/15/22 15:09 2.0 08/15/22 13:10 08/15/22 12:21 2 08/15/22 11:30 2.0 08/15/22 07:36 08/15/22 07:30 08/15/22 07:06 4 Laboratory Results Abnormal Lab Results 08/14/22 08/14/22 08/14/22 18:16 19:43 21:11 WBC RBC Hgb Hct MCV MCH MCHC RDW Std Deviation RDW Coeff of Mickey Plt Count MPV Immature Gran % (Auto) Neut % (Auto) Lymph % (Auto) [place] % (Auto) Eos % (Auto) Baso % (Auto) Neut # (Auto) Lymph # (Auto) [place] # (Auto) Eos # (Auto) Baso # (Auto) Immature Gran # (Auto) Absolute Nucleated RBC Nucleated RBC % (auto) Polychromasia Tear Drop Cells APTT Cancelled PTT Ratio Cancelled Sodium Potassium Chloride Carbon Dioxide Anion Gap BUN Creatinine Est Cr Clr Drug Dosing Est GFR ( Amer) Est GFR (Non-Af Amer) BUN/Creatinine Ratio Glucose POC Glucose 145 H 143 H Calcium Phosphorus Magnesium 08/14/22 08/14/22 08/15/22 21:58 23:45 05:11 WBC RBC Hgb Hct MCV MCH MCHC RDW Std Deviation RDW Coeff of Mickey Plt Count MPV Immature Gran % (Auto) Neut % (Auto) Lymph % (Auto) [place] % (Auto) Eos % (Auto) Baso % (Auto) Neut # (Auto) Lymph # (Auto) [place] # (Auto) Eos # (Auto) Baso # (Auto) Immature Gran # (Auto) Absolute Nucleated RBC Nucleated RBC % (auto) Polychromasia Tear Drop Cells APTT 43.1 H PTT Ratio 1.6 Sodium Potassium Chloride Carbon Dioxide Anion Gap BUN Creatinine Est Cr Clr Drug Dosing Est GFR ( Amer) Est GFR (Non-Af Amer) BUN/Creatinine Ratio Glucose POC Glucose 148 H 147 H Calcium Phosphorus Magnesium 08/15/22 08/15/22 08/15/22 06:25 06:25 06:25 WBC 6.91 RBC 2.41 L Hgb 7.9 L Hct 24.2 L MCV 100.4 H MCH 32.8 MCHC 32.6 RDW Std Deviation 60.2 H RDW Coeff of Mickey 16.6 H Plt Count 141 MPV 10.4 Immature Gran % (Auto) 0.6 Neut % (Auto) 83.5 Lymph % (Auto) 9.0 [place] % (Auto) 4.6 Eos % (Auto) 2.3 Baso % (Auto) 0.0 Neut # (Auto) 5.77 Lymph # (Auto) 0.62 L [place] # (Auto) 0.32 Eos # (Auto) 0.16 Baso # (Auto) 0.00 Immature Gran # (Auto) 0.04 Absolute Nucleated RBC 0.02 Nucleated RBC % (auto) 0.3 Polychromasia 1+ Tear Drop Cells 1+ APTT 81.7 H* PTT Ratio 3.0 Sodium 137 Potassium 4.3 Chloride 108 H Carbon Dioxide 28 Anion Gap 1 L BUN 33 H Creatinine 0.63 Est Cr Clr Drug Dosing 94.6 Est GFR ( Amer) 105.6 Est GFR (Non-Af Amer) 91.1 BUN/Creatinine Ratio 52.4 H Glucose 142 H POC Glucose Calcium 7.2 L Phosphorus 2.6 Magnesium 1.8 08/15/22 12:22 WBC RBC Hgb Hct MCV MCH MCHC RDW Std Deviation RDW Coeff of Mickey Plt Count MPV Immature Gran % (Auto) Neut % (Auto) Lymph % (Auto) [place] % (Auto) Eos % (Auto) Baso % (Auto) Neut # (Auto) Lymph # (Auto) [place] # (Auto) Eos # (Auto) Baso # (Auto) Immature Gran # (Auto) Absolute Nucleated RBC Nucleated RBC % (auto) Polychromasia Tear Drop Cells APTT PTT Ratio Sodium Potassium Chloride Carbon Dioxide Anion Gap BUN Creatinine Est Cr Clr Drug Dosing Est GFR ( Amer) Est GFR (Non-Af Amer) BUN/Creatinine Ratio Glucose POC Glucose 124 H Calcium Phosphorus Magnesium PG Care Time/CCT Total # of Minutes Spent Total Time Spent with Patient: Total time spent is greater than 50% in coordination of care (as documented) at patient's floor/unit and/or counseling patient: Coding Level of Care Code 16594 SUB INP/OBS CARE 2/35MIN Diagnoses Atrial fibrillation I48.2 Atrial fibrillation type: chronic Chronic anticoagulation Z79.01 Aortic stenosis, mild I35.0 Mitral regurgitation I34.0 Cardiac valve disease etiology: etiology unspecified (1) Atrial fibrillation Atrial fibrillation type: chronic Qualified Code(s): I48.2 - Chronic atrial fibrillation (4) Mitral regurgitation Cardiac valve disease etiology: etiology unspecified Qualified Code(s): I34.0 - Nonrheumatic mitral (valve) insufficiency
[2022-08-15 16:52] LABS: Partial Thromboplastin Ratio 2.2
[2022-08-15] MEDS ORDERED: carvediloL 12.5 MG TAB GT SCH (17:00)
[2022-08-15 17:07] LABS: Partial Thromboplastin Time 61.8 Seconds (21.0-31.0)
[2022-08-15] MEDS: LATANOPROST 0.005% OP SOLN 2.5 ML BTL OPB SCH (21:40)
[2022-08-15] MEDS: LANTUS PER UNIT CHARGE SQ SCH (21:41)
[2022-08-15] MEDS: METOPROLOL TARTRATE 25 MG TAB PO SCH (21:52)
[2022-08-15] MEDS: ENOXAPARIN 80 MG/0.8 ML SYR SQ SCH (22:08)
[2022-08-16] MEDS: INSULIN ASPART PER UNIT CHARGE SC SCH ×5 (01:14→23:51)
[2022-08-16] MEDS: TUBE FEEDING WATER FLUSH GT SCH ×7 (01:15→23:55)
[2022-08-16] MEDS: SODIUM CHLOR 7% 4 ML NEB NEB SCH ×2 (07:14→20:30)
[2022-08-16] MEDS: ALBUT/IPRATROP 3MG/0.5MG NEB 3 ML VIAL NEB SCH ×3 (07:14→20:30)
[2022-08-16 07:44] LABS: Creatinine Clr Calc Pharmacy 77.4 ml/min; Est GFR (African American) 97.3 ml/min; Est GFR (Non-African American) 83.9 ml/min
[2022-08-16 08:03] LABS: Partial Thromboplastin Ratio 1.1; Partial Thromboplastin Time 31.4 Seconds (21.0-31.0)
[2022-08-16] MEDS: FOLIC ACID 1 MG in SYRINGE 9.8 ML IV SCH (08:31)
[2022-08-16] MEDS: METOPROLOL TARTRATE 25 MG TAB PO SCH ×3 (08:31→23:55)
[2022-08-16] MEDS: LANSOPRAZOLE 15 MG SOLTAB GT SCH ×2 (08:32→21:36)
[2022-08-16] MEDS: AMIODARONE 200 MG TAB NG SCH ×2 (08:32→17:16)
[2022-08-16] MEDS: ENOXAPARIN 80 MG/0.8 ML SYR SQ SCH ×2 (08:32→21:35)
--- NOTE | 2022-08-16 14:39 | Hospitalist Progress Note ---
Date of Service August 16, 2022 Assessment & Plan (1) Dysphagia: Plan: severe. Now with PEG tube and tube feedings. Appreciate speech therapy evaluation and treatment. Acute on chronic problem high risk, he aspirates SILENTLY with thins. PEG tube placement 08/14/2022. Started PEG feedings on 08/15. Ultimate goal would be to eventually transition to nocturnal feeding Augment magnesium slightly low (2) Atrial fibrillation with RVR: Plan: Telemetry. Appreciate cardiology consultation and recommendations. He is now on amiodarone and carvedilol. Recent TSH wnl . Recent echo with preserved EF () but grade 2 diastolic dysfunction . Lovenox has replaced heparin drip. He is a Islam and if he were to bleed it would provide some challenges. (3) Acute on chronic diastolic CHF (congestive heart failure): Plan: acute decompensation has now resolved . Medical management. Monitor intake and output. (4) Acute hypoxemic respiratory failure: Plan: severe initially now resolving- 2nd to b/l aspiration pneumonia (RUL, LLL, etc) . Improved with diuresis. Oxygen requirement has been tapered down. He was temporarily intubated on July 31 and underwent bronchoscopy then subsequently extubated on August 01. He has complleted 7-day course of IV zosyn. Parenteral steroids have been discontinued. Duo nebs have been decreased in frequency. Cont pulmonary toilet. Repeat COVID testing neg. Flu/RSV testing neg. 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 Orthopedics consult appreciated. Defers surgical lori ection due to medical comorbidities. Non weight bearing status. Additional multiple right rib fractures (6) Acute blood loss anemia: Plan: Due to bleeding into right hip/buttock/thigh from hip fracture. No overt GI bleeding. Fecal occult blood is NEGATIVE. Islam jameson precludes any blood transfusion. He has received 3 doses of IV venofer this admission. Serial lab (7) Diabetes mellitus type 2 in obese: Plan: controlled. Last a1c 6.1 03/2022. Holding home metformin. Cont novolog SSI. Cont lantus 5 units HS. 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 Previously on Coumadin which has been reversed with vitamin K. Heparin drip has now been converted to subcutaneous Lovenox. (9) SDAT (senile dementia of Alzheimer's type): Plan: chronic and stable, has some sundowning . Continue supportive care and Memantine (10) Goals of care, counseling/discussion: Plan: Palliative care consult appreciated. He does remain DNR/DNI. Family is wishing to have supportive care in hopes of presenting to rehabilitation facility (11) History of hemorrhagic stroke with residual hemiparesis: Plan: right-sided ICH 01/2022 with residual hemiparesis on left. Most recent head CT without hemorrhage. Supportive care. OT and PT Plan Anticipate eventual discharge to SNF facility Admission and Anticipated Discharge Date Admission Date: July 29, 2022 Subjective Alert and oriented. No acute distress. is at the bedside. Respiratory status has stabilized. Nebulizers decreased to twice daily scheduled. OT and PT evaluations requested. We will continue to follow daily lab values. Hemoglobin 7.9. PEG tube was placed on 322 and tube feedings are progressing without incident. He is now on Lovenox subcutaneously. He will need placement at discharge Review of Systems Review of Systems: Constitutional-no fever or chills ENT-no blurred vision, no double vision, no epistaxis, no sore throat Respiratory-no cough, no wheezing. Shortness of breath with exertion Cardiac-no palpitations, no chest pain, no syncope GI-no nausea, vomiting, diarrhea, melena, hematochezia -no urinary retention, no urinary incontinence, no dysuria, no hematuria Musculoskeletal- right rib discomfort with deep breathing. Right hip discomf ort with movement or weightbearing Skin-no bruising, no rashes, no pruritus Neuro-generalized weakness. No focal deficits Psych-no depression, no anxiety Physical Exam Physical Exam: General-alert and oriented x3, no fevers, no chills HEENT-head atraumatic and normocephalic, pupils equal and reactive to light, extraocular muscles intact Neck-no lymphadenopathy or thyromegaly, trachea midline Chest-scattered bilateral rhonchi. No wheezing Cardiac-regular rate and rhythm, normal S1 and S2, no murmurs Abdomen-normal bowel sounds, nontender, no hepatosplenomegaly Extremities-no cyanosis, clubbing, or edema Neuro-cranial nerves II through XII intact, motor and sensory function within normal limits, strength symmetrical , no focal deficits Psych-normal affect, normal mood Results & Data Results & Data Vital Signs (Past 12 Hours) Vital Signs Temp Pulse Resp BP BP Pulse Ox O2 Del Method 08/16/22 11:35 36.3 C L 106 H 20 124/75 93 Nasal Cannula 08/16/22 11:22 81 18 93 Room Air 08/16/22 10:39 Nasal Cannula 08/16/22 07:30 36.3 C L 118 H 18 121/78 93 Nasal Cannula 08/16/22 07:17 102 H 18 93 Nasal Cannula O2 Flow Rate 08/16/22 11:35 2.0 08/16/22 11:22 08/16/22 10:39 2 08/16/22 07:30 2.0 08/16/22 07:17 2 Laboratory Results 08/15/22 06:25 08/16/22 05:48 PG Care Time/CCT Total # of Minutes Spent Total Time Spent with Patient: Total time spent is greater than 50% in coordination of care (as documented) at patient's floor/unit and/or counseling patient: Coding Level of Care Code 92507 SUB INP/OBS CARE 3/50MIN Diagnoses Dysphagia R13.10 Atrial fibrillation with RVR I48.91 Acute on chronic diastolic CHF (congestive heart failure) I50.33 Acute hypoxemic respiratory failure J96.01 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
--- NOTE | 2022-08-16 16:58 | Cardiology Progress Note ---
Date of Service August 16, 2022 Assessment & Plan (1) Atrial fibrillation: (2) Chronic anticoagulation: (3) Aortic stenosis, mild: (4) Mitral regurgitation: Plan 1. Atrial fibrillation: No overt symptoms. Still elevated rates. Hemodynamics appear better today. I think we will increase the metoprolol. Hopefully with increased beta-navin and continued amiodarone will have better success with rate control. If his blood pressure remains stable a calcium channel navin could also be added. For lower blood pressures low-dose digoxin could be added and monitored closely. Currently on heparin stroke prophylaxis. 2. Anticoagulation: Previously on warfarin. Now on Lovenox. Restart oral anticoagulation at the discretion of his primary service. 3. Aortic stenosis: This is only mild and not of current concern. 4. Mitral regurgitation: He does have some degree of mitral regurgitation however it does not warrant further evaluation at this time. Admission and Anticipated Discharge Date Admission Date: July 29, 2022 Subjective This afternoon the patient reported only minor discomfort in the right hip. According to his family was present for the interview he seems slightly more depressed today. He denies breathing difficulty. No sense of palpitation. Some very localized and reproducible chest discomfort in the left breast area Review of Systems Review of Systems: Per HPI Physical Exam Physical Exam: Constitutional: Alert, cooperative and in no distress. Resting in bed. Some slurred speech HEENT: Sclerae anicteric Pulmonary: Clear lungs without expiratory wheezing. Normal respiratory effort. Cardiac: Irregular rhythm with a grade 2/6 holosystolic murmur at the apex, no gallop or rub. Extremities: Right leg rotation. Neurologic: No focal findings. Results & Data Vital Signs (Past 12 Hours) Vital Signs Temp Pulse Resp BP BP Pulse Ox O2 Del Method 08/16/22 16:00 36.6 C 106 H 19 133/68 95 Room Air 08/16/22 11:35 36.3 C L 106 H 20 124/75 93 Nasal Cannula 08/16/22 11:22 81 18 93 Room Air 08/16/22 10:39 Nasal Cannula 08/16/22 07:30 36.3 C L 118 H 18 121/78 93 Nasal Cannula 08/16/22 07:17 102 H 18 93 Nasal Cannula O2 Flow Rate 08/16/22 16:00 08/16/22 11:35 2.0 08/16/22 11:22 08/16/22 10:39 2 08/16/22 07:30 2.0 08/16/22 07:17 2 Laboratory Results Abnormal Lab Results 08/15/22 08/15/22 08/15/22 14:28 18:01 21:00 APTT 61.8 H* PTT Ratio 2.2 Creatinine Est Cr Clr Drug Dosing Est GFR ( Amer) Est GFR (Non-Af Amer) POC Glucose 139 H 140 H 08/16/22 08/16/22 08/16/22 00:26 05:48 05:48 APTT 31.4 H PTT Ratio 1.1 Creatinine 0.77 Est Cr Clr Drug Dosing 77.4 Est GFR ( Amer) 97.3 Est GFR (Non-Af Amer) 83.9 POC Glucose 124 H 08/16/22 08/16/22 06:09 12:01 APTT PTT Ratio Creatinine Est Cr Clr Drug Dosing Est GFR ( Amer) Est GFR (Non-Af Amer) POC Glucose 156 H 169 H PG Care Time/CCT Total # of Minutes Spent Total Time Spent with Patient: Total time spent is greater than 50% in coordination of care (as documented) at patient's floor/unit and/or counseling patient: Coding Level of Care Code 49865 SUB INP/OBS CARE 2/35MIN Diagnoses Atrial fibrillation I48.2 Atrial fibrillation type: chronic Chronic anticoagulation Z79.01 Aortic stenosis, mild I35.0 Mitral regurgitation I34.0 Cardiac valve disease etiology: etiology unspecified (1) Atrial fibrillation Atrial fibrillation type: chronic Qualified Code(s): I48.2 - Chronic atrial fibrillation (4) Mitral regurgitation Cardiac valve disease etiology: etiology unspecified Qualified Code(s): I34.0 - Nonrheumatic mitral (valve) insufficiency
[2022-08-16] MEDS: LATANOPROST 0.005% OP SOLN 2.5 ML BTL OPB SCH (21:36)
[2022-08-16] MEDS: LANTUS PER UNIT CHARGE SQ SCH (21:36)
[2022-08-16] MEDS: traMADol HCL 50 MG TABLET NG PRN (21:37)
[2022-08-16] MEDS: MoRPHine SULFATE 2 MG/ML CARP IV PRN (23:40)
[2022-08-17] MEDS: TUBE FEEDING WATER FLUSH GT SCH ×5 (05:18→21:47)
[2022-08-17] MEDS: PEPTAMEN 1.5 CAL 1,000 ML BAG PEG SCH (06:00)
[2022-08-17] MEDS: INSULIN ASPART PER UNIT CHARGE SC SCH ×3 (06:07→18:07)
[2022-08-17] MEDS: METOPROLOL TARTRATE 25 MG TAB PO SCH ×3 (06:11→22:07)
[2022-08-17] MEDS: ALBUT/IPRATROP 3MG/0.5MG NEB 3 ML VIAL NEB SCH ×2 (07:01→20:20)
[2022-08-17] MEDS: SODIUM CHLOR 7% 4 ML NEB NEB SCH ×2 (07:01→20:21)
[2022-08-17 07:55] LABS: Basophils # (auto) 0.01 K/uL (0-0.2); Basophils % (auto) 0.2 %; Eosinophils # (auto) 0.13 K/uL (0-0.50); Eosinophils % (auto) 2.6 %; Hematocrit (blood only) 25.8 % (42.0-52.0); Hemoglobin 8.4 g/dl (14.0-18.0); Immature Granulocytes # (auto) 0.04 K/uL (0.01-0.20); Immature Granulocytes % (auto) 0.8 %; Lymphocytes # (auto) 0.88 K/uL (1.2-3.4); Lymphocytes % (auto) 17.7 %; Mean Corpuscular Hemoglobin 32.3 pg (25.0-34.0); Mean Corpuscular Hgb Conc 32.6 g/dL (32.0-36.0); Mean Corpuscular Volume 99.2 fL (80.0-100.0); Mean Platelet Volume 10.5 fL (9.4-12.4); Monocytes # (auto) 0.44 K/uL (0.11-0.59); Monocytes % (auto) 8.9 %; Neutrophils # (auto) 3.47 K/uL (1.40-6.50); Neutrophils % (auto) 69.8 %; Platelet Count 165 K/uL (130-400); RDW Standard Deviation 57.9 fL (36.4-46.3); White Blood Count 4.97 K/ul (4.8-10.8)
[2022-08-17] MEDS: FOLIC ACID 1 MG in SYRINGE 9.8 ML IV SCH (08:08)
[2022-08-17] MEDS: LANSOPRAZOLE 15 MG SOLTAB GT SCH ×2 (08:08→22:05)
[2022-08-17] MEDS: AMIODARONE 200 MG TAB NG SCH ×2 (08:09→16:26)
[2022-08-17] MEDS: ENOXAPARIN 80 MG/0.8 ML SYR SQ SCH ×2 (08:09→22:06)
[2022-08-17 08:14] LABS: BUN Creatinine Ratio 40.3 (10-20); Calcium 7.3 mg/dl (8.6-10.3); Est GFR (Non-African American) 88.9 ml/min; Potassium 4.5 mmol/L (3.5-5.1)
[2022-08-17] MEDS: dilTIAZem HCL 30 MG TAB PO SCH ×2 (13:58→22:06)
--- NOTE | 2022-08-17 14:17 | Hospitalist Progress Note ---
Date of Service August 17, 2022 Assessment & Plan (1) Dysphagia: Plan: severe. Now with PEG tube and tube feedings. Appreciate speech therapy evaluation and treatment. Acute on chronic problem high risk, he aspirates SILENTLY with thins. PEG tube placement 08/14/2022. Started PEG feedings on 08/15. Ultimate goal would be to eventually transition to nocturnal feeding or bolus feedings. (2) Atrial fibrillation with RVR: Plan: Telemetry. Appreciate cardiology consultation and recommendations. He is on amiodarone and metoprolol. Diltiazem added today, August 17. Cardiology aware. Recent TSH wnl . Recent echo with preserved EF (08/01/22) but grade 2 diastolic dysfunction . Lovenox has replaced heparin drip. 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 (3) Acute on chronic diastolic CHF (congestive heart failure): Plan: acute decompensation has now resolved . Medical management. Monitor intake and output. (4) Acute hypoxemic respiratory failure: Plan: severe initially, now resolving- 2nd to b/l aspiration pneumonia (RUL, LLL, etc) . Improved with diuresis. Oxygen requirement has been tapered down. He was temporarily intubated on July 31 and underwent bronchoscopy then subsequently extubated on August 01. He has completed 7-day course of IV zosyn. Parenteral steroids have been discontinued. Duo nebs have been decreased in frequency. Cont pulmonary toilet. Repeat COVID testing neg. Flu/RSV testing neg. 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 Orthopedics consult appreciated. Defers surgical correction due to medical comorbidities. Non weight bearing status. Additional multiple right rib fractures (6) Acute blood loss anemia: Plan: Due to bleeding into right hip/buttock/thigh from hip fracture. No overt GI bleeding. Fecal occult blood is NEGATIVE. Restoration jameson precludes any blood transfusion. He has received 3 doses of IV venofer this admission. Serial lab . Hemoglobin is trending upward (7) Diabetes mellitus type 2 in obese: Plan: controlled. Last a1c 6.1 03/2022. Holding home metformin. Cont novolog SSI. Cont lantus 5 units HS. 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 Previously on Coumadin which has been reversed with vitamin K. Heparin drip has now been converted to subcutaneous Lovenox. (9) SDAT (senile dementia of Alzheimer's type): Plan: chronic and stable. Although he has some sundowning . Continue supportive care and Memantine (10) Goals of care, counseling/discussion: Plan: Palliative care consult appreciated. He does remain DNR/DNI. Family is wishing to have supportive care in hopes of presenting to rehabilitation facility (11) History of hemorrhagic stroke with residual hemiparesis: Plan: right-sided ICH 01/2022 with residual hemiparesis on left. Most recent head CT without hemorrhage. Supportive care. OT and PT Plan Anticipate eventual discharge to SNF facility hopefully this coming week Admission and Anticipated Discharge Date Admission Date: July 29, 2022 Subjective Alert and oriented. No new problems. is at the bedside. Repeat chest x- ray today, August 17, he is stable. Low-dose diltiazem added to metoprolol for b wilton heart rate control. Blood pressure is stable. He is on room air. Hemoglobin improved to 8.4. Heparin drip has been switched to subcutaneous Lovenox. He is tolerating the peg tube feedings well. Anticipate eventual discharge to SNF. Review of Systems Review of Systems: Constitutional-no fever or chills ENT-no blurred vision, no double vision, no epistaxis, no sore throat Respiratory-no cough, no wheezing. Shortness of breath with exertion Cardiac-no palpitations, no chest pain, no syncope GI-no nausea, vomiting, diarrhea, melena, hematochezia -no urinary retention, no urinary incontinence, no dysuria, no hematuria Musculoskeletal- right rib discomfort with deep breathing. Right hip discomfort with movement or weightbearing Skin-no bruising, no rashes, no pruritus Neuro-generalized weakness. No focal deficits Psych-no depression, no anxiety Physical Exam Physical Exam: General-alert and oriented x3, no fevers, no chills HEENT-head atraumatic and normocephalic, pupils equal and reactive to light, extraocular muscles intact Neck-no lymphadenopathy or thyromegaly, trachea midline Chest-scattered bilateral rhonchi. No wheezing Cardiac-regular rate and rhythm, normal S1 and S2, no murmurs Abdomen-normal bowel sounds, nontender, no hepatosplenomegaly Extremities-no cyanosis, clubbing, or edema Neuro-cranial nerves II through XII intact, motor and sensory function within n ormal limits, strength symmetrical , no focal deficits Psych-normal affect, normal mood Results & Data Results & Data Vital Signs (Past 12 Hours) Vital Signs Temp Pulse Pulse Resp BP BP Pulse Ox 08/17/22 11:50 36.9 C 112 H 19 113/74 93 08/17/22 08:00 08/17/22 08:00 125 H 08/17/22 07:49 36.5 C 125 H 20 110/72 92 08/17/22 06:10 101 H 132/79 08/17/22 05:36 36.6 C 118 H 16 100/66 91 O2 Del Method 08/17/22 11:50 Room Air 08/17/22 08:00 Room Air 08/17/22 08:00 08/17/22 07:49 Room Air 08/17/22 06:10 08/17/22 05:36 Room Air Laboratory Results 08/17/22 07:06 08/17/22 07:06 PG Care Time/CCT Total # of Minutes Spent Total Time Spent with Patient: Total time spent is greater than 50% in coordination of care (as documented) at patient's floor/unit and/or counseling patient: Coding Level of Care Code 42215 SUB INP/OBS CARE 3/50MIN Diagnoses Dysphagia R13.10 Atrial fibrillation with RVR I48.91 Acute on chronic diastolic CHF (congestive heart failure) I50.33 Acute hypoxemic respiratory failure J96.01 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
--- NOTE | 2022-08-17 18:11 | XRay Report ---
SINGLE VIEW CHEST CLINICAL HISTORY: Right-sided rib fractures. FINDINGS: An AP, portable, upright chest radiograph is compared to study dated 08/09/2022 and correlat ed with chest CT dated 07/31/2022. A right PICC line is unchanged in position. The heart is enlarged no ting atherosclerotic calcification of the thoracic aorta. There is pulmonary vascular congestion. Tommy ateral airspace opacities have modestly cleared as compared to 08/09/2022. Small pleural effusions are suspected. No pneumothorax is seen. The skeletal structures are osteopenic. Right-sided rib fracture s are seen by CT are not well visualized by x-ray. Advanced arthritic change is noted in the right sh oulder. IMPRESSION: 1. Cardiomegaly with pulmonary vascular congestion. 2. Bilateral airspace opacities have modestly cleared as compared to 08/09/2022. 3. Small pleural effusions. 4. Right-sided rib fractures seen by CT are not well visualized by x-ray. ACT 112: Negative or not required by law. Electronically signed by: Saleem Doll M.D. 08/17/2022 6:09 PM
[2022-08-17] MEDS: LANTUS PER UNIT CHARGE SQ SCH (22:05)
[2022-08-17] MEDS: LATANOPROST 0.005% OP SOLN 2.5 ML BTL OPB SCH (22:07)
[2022-08-18] MEDS: PEPTAMEN 1.5 CAL 1,000 ML BAG PEG SCH ×2 (00:05→17:11)
[2022-08-18] MEDS: TUBE FEEDING WATER FLUSH GT SCH ×6 (00:08→21:08)
[2022-08-18] MEDS: INSULIN ASPART PER UNIT CHARGE SC SCH ×4 (00:11→18:10)
[2022-08-18 06:34] LABS: Basophils # (auto) 0.01 K/uL (0-0.2); Basophils % (auto) 0.2 %; Eosinophils # (auto) 0.17 K/uL (0-0.50); Eosinophils % (auto) 3.1 %; Hematocrit (blood only) 25.2 % (42.0-52.0); Hemoglobin 8.3 g/dl (14.0-18.0); Immature Granulocytes # (auto) 0.03 K/uL (0.01-0.20); Immature Granulocytes % (auto) 0.5 %; Lymphocytes % (auto) 16.3 %; Mean Corpuscular Hemoglobin 32.3 pg (25.0-34.0); Mean Corpuscular Hgb Conc 32.9 g/dL (32.0-36.0); Mean Corpuscular Volume 98.1 fL (80.0-100.0); Mean Platelet Volume 10.4 fL (9.4-12.4); Monocytes # (auto) 0.52 K/uL (0.11-0.59); Monocytes % (auto) 9.4 %; Neutrophils # (auto) 3.89 K/uL (1.40-6.50); Neutrophils % (auto) 70.5 %; Platelet Count 153 K/uL (130-400); RDW Coefficient of Variation 15.9 % (11.5-14.5); RDW Standard Deviation 57.1 fL (36.4-46.3); Red Blood Count 2.57 M/uL (4.70-6.10); White Blood Count 5.52 K/ul (4.8-10.8)
[2022-08-18 06:52] LABS: BUN Creatinine Ratio 29.5 (10-20); Calcium 7.1 mg/dl (8.6-10.3); Creatinine Clr Calc Pharmacy 97.7 ml/min; Est GFR (Non-African American) 92.4 ml/min; Potassium 4.6 mmol/L (3.5-5.1)
[2022-08-18] MEDS: SODIUM CHLOR 7% 4 ML NEB NEB SCH ×2 (06:55→19:15)
[2022-08-18] MEDS: ALBUT/IPRATROP 3MG/0.5MG NEB 3 ML VIAL NEB SCH ×2 (06:55→19:15)
[2022-08-18] MEDS: dilTIAZem HCL 30 MG TAB PO SCH (08:35)
[2022-08-18] MEDS: FOLIC ACID 1 MG in SYRINGE 9.8 ML IV SCH (08:35)
[2022-08-18] MEDS: AMIODARONE 200 MG TAB NG SCH ×2 (08:35→17:00)
[2022-08-18] MEDS: METOPROLOL TARTRATE 25 MG TAB PO SCH ×3 (08:35→21:09)
[2022-08-18] MEDS: ENOXAPARIN 80 MG/0.8 ML SYR SQ SCH ×2 (08:36→21:10)
[2022-08-18] MEDS: LANSOPRAZOLE 15 MG SOLTAB GT SCH ×2 (08:36→21:09)
[2022-08-18] MEDS: traMADol HCL 50 MG TABLET NG PRN (08:45)
[2022-08-18] MEDS: dilTIAZem HCl 60 MG TAB PO SCH ×3 (10:46→21:09)
[2022-08-18] MEDS: MoRPHine SULFATE 2 MG/ML CARP IV PRN (12:21)
[2022-08-18] MEDS ORDERED: bisacodyL 10 MG SUPP PR PRN (13:05)
[2022-08-18] MEDS ORDERED: bisacodyL 10 MG SUPP PR STA (13:05)
--- NOTE | 2022-08-18 13:12 | Hospitalist Progress Note ---
Date of Service August 18, 2022 Assessment & Plan (1) Dysphagia: Plan: severe. Now with PEG tube and tube feedings. Appreciate speech therapy evaluation and treatment. Acute on chronic problem high risk, he aspirates SILENTLY with thins. PEG tube placement 08/14/2022. Started PEG feedings on 08/15. Ultimate goal would be to eventually transition to nocturnal feeding or bolus feedings. (2) Atrial fibrillation with RVR: Plan: Telemetry. Appreciate cardiology consultation and recommendations. He is on amiodarone and metoprolol. Diltiazem was started on August 17 and the dosage uptitrated today, August 18. Cardiology aware. Recent TSH wnl . Recent echo with preserved EF (08/01/22) but grade 2 diastolic dysfunction . Lovenox has replaced the heparin drip. 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 (3) Acute on chronic diastolic CHF (congestive heart failure): Plan: acute decompensation has now resolved . Medical management. Monitor intake and output. (4) Acute hypoxemic respiratory failure: Plan: severe initially, now resolving- 2nd to b/l aspiration pneumonia (RUL, LLL, etc) . Improved with diuresis. Oxygen requirement has been tapered down. He was temporarily intubated on July 31 and underwent bronchoscopy then subsequently extubated on August 01. He has completed 7-day course of IV zosyn. Parenteral steroids have been discontinued. Duo nebs have been decreased in frequency. Cont pulmonary toilet. Repeat COVID testing neg. Flu/RSV testing neg. 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 Orthopedics consult appreciated. Defers surgical correction due to medical comorbidities. Non weight bearing status. Additional multiple right rib fractures (6) Acute blood loss anemia: Plan: Due to bleeding into right hip/buttock/thigh from hip fracture. No overt GI bleeding. Fecal occult blood is NEGATIVE. Bahai jameson precludes any blood transfusion. He has received 3 doses of IV venofer this admission. Serial lab . Hemoglobin is trending upward and appears stable (7) Diabetes mellitus type 2 in obese: Plan: controlled. Last a1c 6.1 03/2022. Holding home metformin. Cont novolog SSI. Cont lantus 5 units HS. 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 Previously on Coumadin which has been reversed with vitamin K. Heparin drip has now been converted to subcutaneous Lovenox. (9) SDAT (senile dementia of Alzheimer's type): Plan: chronic and stable. Although he has some sundowning . Continue supportive care and Memantine (10) Goals of care, counseling/discussion: Plan: Palliative care consult appreciated. He does remain DNR/DNI. Family is wishing to have supportive care in hopes of presenting to rehabilitation facility (11) History of hemorrhagic stroke with residual hemiparesis: Plan: right-sided ICH 01/2022 with residual hemiparesis on left. Most recent head CT without hemorrhage. Supportive care. OT and PT Plan Anticipate eventual discharge to SNF facility hopefully this coming week Admission and Anticipated Discharge Date Admission Date: July 29, 2022 Subjective Alert and oriented. No acute distress. is at the bedside. Diltiazem dosage uptitrated for better heart rate control. Abdominal x-ray ordered to make sure there is no developing obstruction although I suspect he simply has constipation. Dulcolax suppositories ordered. is concerned about the presence of penile edema but he has received considerable IV fluids and hemoglobin is low which is likely to cause lower extremity and penile edema. He is tolerating his continuous tube feeds that probably should be switched to bolus feeding prior to discharge. Hemoglobin stable at 8.3. Review of Systems Review of Systems: Constitutional-no fever or chills ENT-no blurred vision, no double vision, no epistaxis, no sore throat Respiratory-no cough, no wheezing. Shortness of breath with exertion Cardiac-no palpitations, no chest pain, no syncope GI-no nausea, vomiting, diarrhea, melena, hematochezia -no urinary retention, no urinary incontinence, no dysuria, no hematuria Musculoskeletal- right rib discomfort with deep breathing. Right hip discomfort with movement or weightbearing Skin-no bruising, no rashes, no pruritus Neuro-generalized weakness. No focal deficits Psych-no depression, no anxiety Physical Exam Physical Exam: General-alert and oriented x3, no fevers, no chills HEENT-head atraumatic and normocephalic, pupils equal and reactive to light, extraocular muscles intact Neck-no lymphadenopathy or thyromegaly, trachea midline Chest-scattered bilateral rhonchi. No wheezing Cardiac-regular rate and rhythm, normal S1 and S2, no murmurs Abdomen-normal bowel sounds, nontender, no hepatosplenomegaly GUpenile edema noted. Peña catheter in place Extremities-right leg is slightly shortened and externally rotated due to underlying right hip fracture. 1+ pitting edema bilateral lower extremities noted Neuro-cranial nerves II through XII intact, motor and sensory function within normal limits, strength symmetrical , no focal deficits Psych-normal affect, normal mood Results & Data Results & Data Vital Signs (Past 12 Hours) Vital Signs Temp Pulse Pulse Resp BP BP Pulse Ox 08/18/22 11:21 37.1 C 118 H 17 132/76 95 08/18/22 08:00 08/18/22 08:06 112 H 08/18/22 07:51 36.6 C 123 H 21 118/79 93 08/18/22 03:42 36.9 C 115 H 18 129/80 93 08/18/22 03:16 36.8 C 69 18 119/61 96 O2 Del Method 08/18/22 11:21 Room Air 08/18/22 08:00 Room Air 08/18/22 08:06 08/18/22 07:51 Room Air 08/18/22 03:42 Room Air 08/18/22 03:16 Room Air Laboratory Results 08/18/22 06:06 08/18/22 06:06 PG Care Time/CCT Total # of Minutes Spent Total Time Spent with Patient: Total time spent is greater than 50% in coordination of care (as documented) at patient's floor/unit and/or counseling patient: Coding Level of Care Code 42469 SUB INP/OBS CARE 3/50MIN Diagnoses Dysphagia R13.10 Atrial fibrillation with RVR I48.91 Acute on chronic diastolic CHF (congestive heart failure) I50.33 Acute hypoxemic respiratory failure J96.01 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
--- NOTE | 2022-08-18 14:05 | XRay Report ---
XR KUB/Abdomen 1 view CLINICAL HISTORY: constipation TECHNIQUE: 1 view of the abdomen was obtained. Comparison: Comparison is made to abdomen radiographs 04/12/2022 FINDINGS: Gastrostomy tube is noted. The osseous structures are grossly unremarkable. No significant bowel gas is seen. A moderate amount of stool is noted within the large bowel. IMPRESSION: Moderate stool burden without evidence of inspissation. ACT 112: Negative or not required by law. Electronically signed by: Abner Shah M.D. 08/18/2022 2:04 PM
[2022-08-18] MEDS: LATANOPROST 0.005% OP SOLN 2.5 ML BTL OPB SCH (21:09)
[2022-08-18] MEDS: LANTUS PER UNIT CHARGE SQ SCH (21:10)
[2022-08-19] MEDS: TUBE FEEDING WATER FLUSH GT SCH ×6 (00:02→22:08)
[2022-08-19] MEDS: INSULIN ASPART PER UNIT CHARGE SC SCH ×4 (00:08→18:27)
[2022-08-19 06:09] LABS: Basophils # (auto) 0.01 K/uL (0-0.2); Basophils % (auto) 0.2 %; Eosinophils # (auto) 0.14 K/uL (0-0.50); Eosinophils % (auto) 2.5 %; Hematocrit (blood only) 25.8 % (42.0-52.0); Hemoglobin 8.2 g/dl (14.0-18.0); Immature Granulocytes # (auto) 0.04 K/uL (0.01-0.20); Immature Granulocytes % (auto) 0.7 %; Lymphocytes # (auto) 0.93 K/uL (1.2-3.4); Lymphocytes % (auto) 16.8 %; Mean Corpuscular Hemoglobin 31.9 pg (25.0-34.0); Mean Corpuscular Hgb Conc 31.8 g/dL (32.0-36.0); Mean Corpuscular Volume 100.4 fL (80.0-100.0); Mean Platelet Volume 10.4 fL (9.4-12.4); Monocytes # (auto) 0.53 K/uL (0.11-0.59); Monocytes % (auto) 9.6 %; Neutrophils # (auto) 3.88 K/uL (1.40-6.50); Neutrophils % (auto) 70.2 %; Nucleated RBC # (auto) 0.02 K/uL (0-0.12); Nucleated RBC % (auto) 0.4 %; Platelet Count 156 K/uL (130-400); RDW Coefficient of Variation 16.1 % (11.5-14.5); RDW Standard Deviation 58.8 fL (36.4-46.3); Red Blood Count 2.57 M/uL (4.70-6.10); White Blood Count 5.53 K/ul (4.8-10.8)
[2022-08-19 06:30] LABS: Calcium 7.2 mg/dl (8.6-10.3); Creatinine Clr Calc Pharmacy 123.1 ml/min; Est GFR (African American) 105.6 ml/min; Est GFR (Non-African American) 91.1 ml/min; Potassium 4.7 mmol/L (3.5-5.1)
[2022-08-19] MEDS: SODIUM CHLOR 7% 4 ML NEB NEB SCH (07:58)
[2022-08-19] MEDS: ALBUT/IPRATROP 3MG/0.5MG NEB 3 ML VIAL NEB SCH ×2 (08:00→20:12)
[2022-08-19] MEDS: PEPTAMEN 1.5 CAL 1,000 ML BAG PEG SCH (09:19)
[2022-08-19] MEDS: dilTIAZem HCl 60 MG TAB PO SCH ×3 (09:21→20:33)
[2022-08-19] MEDS: ENOXAPARIN 80 MG/0.8 ML SYR SQ SCH ×2 (09:21→20:31)
[2022-08-19] MEDS: AMIODARONE 200 MG TAB NG SCH ×2 (09:21→17:18)
[2022-08-19] MEDS: FOLIC ACID 1 MG in SYRINGE 9.8 ML IV SCH (09:22)
[2022-08-19] MEDS: METOPROLOL TARTRATE 25 MG TAB PO SCH ×2 (09:22→13:04)
[2022-08-19] MEDS: LANSOPRAZOLE 15 MG SOLTAB GT SCH ×2 (09:22→20:32)
--- NOTE | 2022-08-19 13:39 | Palliative Care Progress Note ---
Date of Service August 19, 2022 Assessment & Plan (1) Palliative care by specialist: (2) Aspiration into airway: Plan: s/p PeG family aware pt will nt stop aspirating even with PEG but this is the only option for nutrition and moving forward with SNF placement as TPN would not be covered at SNF (3) Atrial fibrillation: (4) Acute hypoxemic respiratory failure: (5) Closed intertrochanteric fracture of femur: (6) Refusal of blood transfusions as patient is Hinduism: (7) Obstructive sleep apnea: (8) Hypertensive heart disease: Plan Patient is not consistently decisional and has progressive cognitive decline c/w dementia Numerous family meetings, ACP and GOC discussions held Ultimately they desire PEG and SNF, which are underway Given no urgent acute inpatient pall med needs at present, I will sign off. I remain available for re engagement if patient has acute decline. TS 22 min Thank you for allowing us to participate in the ongoing care of this patient. Please don't hesitate to call or page with any additional concerns. Dr. Edwina Jensen DNP Director, Palliative Care Admission and Anticipated Discharge Date Admission Date: July 29, 2022 Subjective s/p PEG tube feeds underway hopeful for SNF placement Review of Systems Review of Systems: Unobtainable due to cognitive status Results & Data Vital Signs (Past 12 Hours) Vital Signs Temp Pulse Pulse Resp BP BP Pulse Ox 08/19/22 11:23 36.7 C 112 H 19 131/77 95 08/19/22 09:49 08/19/22 08:01 123 H 18 94 08/19/22 07:54 121 H 08/19/22 07:47 36.6 C 110 H 18 117/72 94 08/19/22 04:31 36.7 C 107 H 18 125/75 92 O2 Del Method FiO2 08/19/22 11:23 Room Air 08/19/22 09:49 Room Air 08/19/22 08:01 Room Air 21 08/19/22 07:54 08/19/22 07:47 Room Air 08/19/22 04:31 Room Air PG Care Time/CCT Total # of Minutes Spent Total Time Spent: 22 Total Time Spent with Patient: Total time spent is greater than 50% in coordination of care (as documented) at patient's floor/unit and/or counseling patient: Coding [place] [address] SUB INP/OBS CARE 06/19MIN Patient Type Established History Problem Focused Medical Decision Making Moderate Complexity Diagnoses Palliative care by specialist Z51.5 Aspiration into airway T17.908A Atrial fibrillation I48.2 Atrial fibrillation type: chronic Acute hypoxemic respiratory failure J96.01 Closed intertrochanteric fracture of femur S72.143A Refusal of blood transfusions as patient is Hinduism Z53.1 Obstructive sleep apnea G47.33 Hypertensive heart disease I11.9 (3) Atrial fibrillation Atrial fibrillation type: chronic Qualified Code(s): I48.2 - Chronic atrial fibrillation
[2022-08-19] MEDS ORDERED: WARFARIN SOD 5 MG TAB PO ONE (18:08)
--- NOTE | 2022-08-19 18:12 | Hospitalist Progress Note ---
Date of Service August 19, 2022 Assessment & Plan (1) Dysphagia: Plan: severe. Now with PEG tube and tube feedings. Appreciate speech therapy evaluation and treatment. Acute on chronic problem high risk, he aspirates SILENTLY with thins. PEG tube placement 08/14/2022. Started PEG feedings on 08/15. Ultimate goal would be to eventually transition to nocturnal feeding or bolus feedings. Tolerating well PEG tube site appears normal postoperatively (2) Atrial fibrillation with RVR: Plan: Remains in rapid atrial flutter and fibrillation with rates as high as 120s Continue telemetry. Appreciate cardiology consultation and recommendations-will discuss care given ongoing tachycardia -Increase metoprolol to 50 Mg p.o. twice daily -Continue on amiodarone 200 Mg p.o. twice daily - Diltiazem was started on August 17 Recent TSH wnl . Recent echo with preserved EF (08/01/22) but grade 2 diastolic dysfunction . Lovenox has replaced the heparin drip-okay to restart Coumadin-5 mg today and then 4 mg daily after that Continue to bridge with Lovenox Follow INR (3) Acute on chronic diastolic CHF (congestive heart failure): Plan: acute decompensation has now resolved . Medical management. Monitor intake and output. (4) Acute hypoxemic respiratory failure: Plan: severe initially, now resolving- 2nd to b/l aspiration pneumonia (RUL, LLL, etc) . Improved with diuresis. Oxygen requirement now back to room air. He was temporarily intubated on July 31 and underwent bronchoscopy then subsequently extubated on August 01. He has completed 7-day course of IV zosyn. Parenteral steroids have been discontinued. Duo nebs have been decreased in frequency. Cont pulmonary toilet. Repeat COVID testing neg. Flu/RSV testing neg. 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 Orthopedics consult appreciated. Defers surgical correction due to medical comorbidities i.e. required intubation for aspiration pneumonia. Additional multiple right rib fractures He may weight-bear as tolerated with pain as his guide as per orthopedics Follow-up with orthopedics Needs rehab (6) Acute blood loss anemia: Plan: Due to bleeding into right hip/buttock/thigh from hip fracture. No overt GI bleeding. Fecal occult blood is NEGATIVE. Sabianist jameson precludes any blood transfusion. He has received 3 doses of IV venofer this admission. Hemoglobin has improved and is stable now at 8.2 Follow CBC (7) Diabetes mellitus type 2 in obese: Plan: controlled. Last a1c 6.1 03/2022. Holding home metformin. Cont novolog SSI. Cont lantus 5 units HS. 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 Previously on Coumadin which has been reversed with vitamin K. Heparin drip has now been converted to subcutaneous Lovenox. Restart Coumadin today and continue bridging with Lovenox Follow INR (9) SDAT (senile dementia of Alzheimer's type): Plan: chronic and stable. Although he has some sundowning . Continue supportive care and Memantine (10) Goals of care, counseling/discussion: Plan: Palliative care consult appreciated. He does remain DNR/DNI. Family is wishing to have supportive care in hopes of presenting to rehabilitation facility (11) History of hemorrhagic stroke with residual hemiparesis: Plan: right-sided ICH 01/2022 with residual hemiparesis on left. Most recent head CT without hemorrhage. Supportive care. 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 Peña catheter Does have some penile edema contributing to friable skin Patient and hesitant to remove Peña catheter They would appreciate consultation with urology Consider trial of void while in the hospital Wound care with Xeroform to the ulcers (13) Hyponatremia: Plan: Sodium low at 133, likely excessive free water Reduce free water flushes to 100 mL every 6 hours from every 4 hours Follow BMP Plan Anticipate eventual discharge to SNF facility hopefully this coming week DVT prophylaxis-Lovenox Admission and Anticipated Discharge Date Admission Date: July 29, 2022 Subjective Patient feeling okay. Has sores around the head of his penis. He is fearful of taking Peña catheter out. No chest pains or shortness of breath. Has some soreness around the PEG tube insertion site as well. Telemetry with atrial flutter and fibrillation with rates in the 70s to 120s at times. Tolerating tube feeds, no nausea. Moving bowels Has some pain in the right hip with movement Physical Exam Constitutional: WD/WN, vitals as above Respiratory: normal respiratory effort, lungs clear to auscultation Cardiovascular: Rate/Rhythm: + tachycardic and + irregularly irregular Heart Sounds: no murmur Extremities: + edema (Trace pitting edema bilateral legs) Gastrointestinal (Abdomen): Inspection/Auscultation: + abdomen abnormal to inspection (PEG tube in place LUQ, no surrounding erythema) Percussion /Palpation: abdomen soft; abdomen nontender and no guarding Musculoskeletal: Extremities: extremities normal to inspection Genitourinary: Head of penis with 2 ulcerations without surrounding edema With penile edema Peña catheter in place draining pink-tinged cloudy urine Results & Data Results & Data Vital Signs (Past 12 Hours) Vital Signs Temp Pulse Pulse Resp BP Pulse Ox O2 Del Method 08/19/22 15:53 37.0 C 73 17 110/67 93 Room Air 08/19/22 11:23 36.7 C 112 H 19 131/77 95 Room Air 08/19/22 09:49 Room Air 08/19/22 08:01 123 H 18 94 Room Air 08/19/22 07:54 121 H 08/19/22 07:47 36.6 C 110 H 18 117/72 94 Room Air FiO2 08/19/22 15:53 08/19/22 11:23 08/19/22 09:49 08/19/22 08:01 21 08/19/22 07:54 08/19/22 07:47 Laboratory Results CBC, BMP, reviewed PG Care Time/CCT Total # of Minutes Spent Total Time Spent with Patient: Total time spent is greater than 50% in coordination of care (as documented) at patient's floor/unit and/or counseling patient: Coding Level of Care Code 21550 SUB INP/OBS CARE 3/50MIN Diagnoses Dysphagia R13.10 Atrial fibrillation with RVR I48.91 Acute on chronic diastolic CHF (congestive heart failure) I50.33 Acute hypoxemic respiratory failure J96.01 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
[2022-08-19] MEDS: LANTUS PER UNIT CHARGE SQ SCH (20:31)
[2022-08-19] MEDS: LATANOPROST 0.005% OP SOLN 2.5 ML BTL OPB SCH (20:32)
[2022-08-19] MEDS: traMADol HCL 50 MG TABLET NG PRN (20:32)
[2022-08-19] MEDS: METOPROLOL TARTRATE 50 MG TAB PO SCH (20:33)
--- NOTE | 2022-08-19 20:53 | Urology Consultation ---
Date of Consultation August 19, 2022 Assessment & Plan (1) Urinary retention: Concerning the patient's urinary retention I did discuss with the patient and his and noted that based on the goals of their care and patient's ultimate disposition a voiding trial can be attempted while in the hospital or if he does go to rehab facility could be attempted while at that facility. Concerning the patient's penile ulceration disease appears to be potentially caused from irritation from the patient's Peña catheter. In addition while I was in the room the nurse did note that patient may have had his penis pinched when he was attempting to get out of bed with physical therapy and this was noted several da ys ago but has improved. Wound care nurse has seen the patient and has recommended placing Xeroform around the Peña site. I have also ordered an antibiotic ointment that can be utilized. We will continue to monitor this condition with no other specific recommendations at this time. Patient's also expressed her concern that approximately 1 month they do have a follow-up appoint with Dr. Jimenez regarding PSA. I have counseled the patient did not cancel this appointment yet as even if patient does go to rehab facility sometimes transportation can be arranged to the office depending on the urgency of this appointment. In addition if patient requires blood work this can be performed while at his rehab facility and these results can be conveyed Dr. Jimenez and decision can be made if patient needs an in person office appointment. There is also the potential that patient could indeed have a phone or virtual visit based on his needs as determined by Dr. Jimenez. History of Present Illness Reason for Consultation: Urinary retention and penile lesions Attending Physician: Rachel Delgado MD History of Present Illness This is an 82-year-old male who was admitted not in any Medical Center since 07/29 after suffering a fall at home. As result of the fall the patient suffered a right hip fracture as well as multiple fractures of the right ribs. Since admission the patient has a long and protracted hospitalization. He has required a PEG tube placement secondary to dysphagia. During his admission he had decompensation of acute on chronic diastolic CHF which has been optimized. He also had acute hypoxic respiratory failure secondary to aspiration pneumonia which has improved. The patient has had urinary retention requiring Peña catheter placement we have been asked to see the patient for this problem. I discussed with the patient and his and they note that he has never had issues with urinary retention until this hospitalization. Patient was specifically notes that he has had a good urine stream and felt as though he can empty his bladder completely prior to this hospitalization. It is also noted that the patient had some penile ulcerations that were felt to be due to Peña catheter irritation and we have been asked to see for this problem. Most recent labs available for review included a CBC were white blood cell count was normal. His hemoglobin and hematocrit were 8.2 and 25.8. Platelet count is normal. Chemistry profile showed sodium is 133 with a normal potassium. His BUN and creatinine are also normal. Concerning the patient's urinary retention he has not had any pertinent imaging such as a renal ultrasound or scrotal ultrasound. The patient has had a CT scan of the abdomen pelvis on 07/31/2022 which showed no hydronephrosis of the kidneys bilaterally. There were no renal stones noted. There were no renal masses. On this study the patient's bladder was noted to be decompressed around the Peña catheter and he was noted to have a heterogeneous prostate gland with normal seminal vesicles. At the time of my interview the patient was resting comfortably in bed and he was in no distress. Allergies Allergy/AdvReac Type Severity Reaction Status Date / Time meperidine AdvReac Intermediate OVER-SEDATION, Verified 07/29/22 19:58 N/V W/ SYNCOPE sertraline [From Zoloft] AdvReac Intermediate Dizziness Verified 07/29/22 19:58 Home Medications Medication Instructions Recorded Confirmed Type latanoprost 0.005 % eye drops 1 drp OPB HS 06/28/18 07/29/22 History mecobalamin (vitamin B12) 1,000 1,000 mcg PO QAM 03/21/20 07/29/22 History mcg chewable tablet leuprolide acetate (6 month) 45 mg 45 mg IM Q24W #1 ea 04/25/20 07/29/22 Rx intramuscular syringe kit (Lupron Depot) warfarin 3 mg tablet 4.5 mg PO WK 06/18/21 07/29/22 History blood sugar diagnostic #100 ea 02/25/22 06/28/22 Rx carvedilol 6.25 mg tablet 6.25 mg PO BID #180 tabs 03/01/22 07/29/22 Rx amiodarone 200 mg tablet 200 mg PO QAM #90 tabs 03/18/22 07/29/22 Rx metformin 500 mg tablet 500 mg PO BID #180 tabs 04/08/22 07/29/22 Rx amlodipine 2.5 mg tablet 2.5 mg PO DAILY #90 tabs 06/28/22 07/29/22 Rx atorvastatin 40 mg tablet 40 mg PO HS #90 tabs 07/17/22 07/29/22 Rx lisinopril 10 mg tablet 10 mg PO QAM 07/29/22 07/29/22 History polyethylene glycol 3350 17 gram 17 g PO BID PRN Constipation 07/29/22 07/29/22 History oral powder packet (Miralax) warfarin 3 mg tablet 3 mg PO [id number] 07/29/22 07/29/22 History Patient History Medical History Acute hemorrhage Acute hypoxemic respiratory failure Acute spont intraparenchymal hemorrhage assoc w/ hypertension Advanced care planning/counseling discussion Antithrombin III deficiency FOLLOWS PCP > DR. TAN/LOC - ON COUMADIN ARDS (adult respiratory distress syndrome) Aspiration into airway Aspiration pneumonia Blurred vision, bilateral Cataract RT/LEFT Chest pain Constipation Diabetes mellitus type 2 in obese Dizziness Forgetfulness "RELATED TO AGE" Glaucoma LEFT EYE History of adenomatous polyp of colon History of atrial fibrillation History of hemorrhagic stroke with residual hemiparesis History of prostate cancer History of skin cancer MELANOMA AND BASAL CELL Hx of deep venous thrombosis SEVERAL YEARS AGO, REASON FOR COUMADIN Hx pulmonary embolism WITH DVT ? YEAR "A FEW YEARS AGO" Hyperlipidemia Hypertension Hypertensive heart disease preserved LV function Hypertensive urgency Obstructive sleep apnea no device used (could not tolerate) Osteoarthritis Palliative care by specialist Prostate cancer Refusal of blood transfusions as patient is Congregational Septic shock Thoracic ascending aortic aneurysm UNSURE ABOUT DX Surgical History History of cardioversion (11/2018) X 4--last 06/22/21 @ [facility] History of colonoscopy History of local excision of skin lesion MULTIPLE REMOVAL History of nasal septoplasty multiple-with Celon turbinate reduction History of tooth extraction Hx of colonoscopy Hx of prostate biopsy Family History Mother Venous embolism and thrombosis of deep vessels of lower extremity Cancer Father Stroke syndrome Other No family history of adverse response to anesthesia No family history of bleeding disorder No pertinent family history Denies family history of Ovarian cancer Prostate cancer Coronary heart disease Alzheimer disease Bipolar disorder Breast cancer COPD (chronic obstructive pulmonary disease) Colorectal cancer Asthma Social History Smoking Status: Never smoker Second Hand Exposure: Yes; Hx Alcohol Use: No Hx Substance Use: No Preferred Language: Urdu Communication Ability: Effective Visual Impairment: No Limitations Hearing Ability: Normal Pattern Developer Required: No Beliefs That Will Affect Care: Latter-Day Latter-Day Beliefs: Pt is Jehova's witness will not use blood products marital status: Current Living Situation: Spouse current occupational status: retired current occupation: Worked at [employer] How many Children do You have: 2 Feels Safe at Home: Yes Childhood Exposure to Second-Hand Smoke: No caffeine: No during the past year weight has: remained stable Dental Care, Regularly: Yes Physical Activity Frequency: Does not Exercise Seatbelt Use: always Sunscreen Use: No Assistive Devices: Cane and Walker Review of Systems Constitutional: no fever and no chills Respiratory: no dyspnea Cardiovascular: no chest pain Gastrointestinal: + dysphagia Genitourinary: + as per Subjective / HPI Musculoskeletal: no back pain Physical Exam Physical Exam: The patient's penis/genitals were examined. There are no gross abnormalities or ulcerations or discoloration noted the patient's scrotum. The scrotum was nonpainful to palpation. The patient's penis was examined and patient did have a Peña catheter in place that was patent draining yellow urine. There did appear to be a small amount of purulent drainage and a small amount of reddish discoloration near the Peña insertion site. Constitutional: WD/WN, vitals as above Eyes: no conjunctival abnormality Neck: trachea midline Respiratory: normal respiratory effort; no respiratory distress and no labored breathing Gastrointestinal (Abdomen): Soft and nondistended Results & Data Vital Signs (Past 12 Hours) Vital Signs Temp Pulse Pulse Resp BP BP Pulse Ox 08/19/22 20:15 110 H 16 94 08/19/22 19:47 121 H 18 141/80 H 92 08/19/22 15:11 75 08/19/22 15:53 37.0 C 73 17 110/67 93 08/19/22 11:23 36.7 C 112 H 19 131/77 95 08/19/22 09:49 O2 Del Method 08/19/22 20:15 Room Air 08/19/22 19:47 Room Air 08/19/22 15:11 08/19/22 15:53 Room Air 08/19/22 11:23 Room Air 08/19/22 09:49 Room Air PG Care Time/CCT Total # of Minutes Spent Total Time Spent with Patient: Total time spent is greater than 50% in coordination of care (as documented) at patient's floor/unit and/or counseling patient: Coding Level of Care Code 72171 INT INP/OBS CARE 2/55MIN Diagnoses Urinary retention R33.9
[2022-08-19] MEDS: NEOMYCIN/POLYMYX/BACITR OINT 15 GM TUBE EXT SCH (22:07)
[2022-08-20] MEDS: INSULIN ASPART PER UNIT CHARGE SC SCH ×5 (00:05→23:16)
[2022-08-20] MEDS: PEPTAMEN 1.5 CAL 1,000 ML BAG PEG SCH ×2 (03:19→20:32)
[2022-08-20] MEDS: TUBE FEEDING WATER FLUSH GT SCH ×4 (06:00→23:04)
[2022-08-20 06:40] LABS: Basophils # (auto) 0.02 K/uL (0-0.2); Basophils % (auto) 0.4 %; Eosinophils # (auto) 0.16 K/uL (0-0.50); Eosinophils % (auto) 3.1 %; Hematocrit (blood only) 26.5 % (42.0-52.0); Hemoglobin 8.4 g/dl (14.0-18.0); Immature Granulocytes # (auto) 0.05 K/uL (0.01-0.20); Lymphocytes # (auto) 0.98 K/uL (1.2-3.4); Lymphocytes % (auto) 18.9 %; Mean Corpuscular Hemoglobin 31.8 pg (25.0-34.0); Mean Corpuscular Hgb Conc 31.7 g/dL (32.0-36.0); Mean Corpuscular Volume 100.4 fL (80.0-100.0); Mean Platelet Volume 10.2 fL (9.4-12.4); Monocytes # (auto) 0.52 K/uL (0.11-0.59); Neutrophils # (auto) 3.45 K/uL (1.40-6.50); Neutrophils % (auto) 66.6 %; Platelet Count 168 K/uL (130-400); RDW Coefficient of Variation 16.9 % (11.5-14.5); RDW Standard Deviation 61.1 fL (36.4-46.3); Red Blood Count 2.64 M/uL (4.70-6.10); White Blood Count 5.18 K/ul (4.8-10.8)
[2022-08-20] MEDS: ALBUT/IPRATROP 3MG/0.5MG NEB 3 ML VIAL NEB SCH ×2 (06:57→19:51)
[2022-08-20 07:00] LABS: Prothrombin Time 10.7 Seconds (9.0-12.0)
[2022-08-20 07:04] LABS: Albumin Globulin Ratio 0.8 (0.9-2); Albumin Level 2.1 gm/dl (3.4-5.0); Bilirubin,Total 0.7 mg/dl (0.2-1.0); Calcium 7.2 mg/dl (8.6-10.3); Creatinine Clr Calc Pharmacy 127.8 ml/min; Est GFR (African American) 107.8 ml/min; Globulin 2.7 gm/dl (2.5-4.0); Magnesium 1.6 mg/dl (1.7-2.4); Potassium 4.8 mmol/L (3.5-5.1); Total Protein 4.8 gm/dl (6.0-8.3)
[2022-08-20] MEDS ORDERED: INSULIN ASPART PER UNIT CHARGE SC ONE (07:38)
[2022-08-20] MEDS ORDERED: LANTUS PER UNIT CHARGE SQ ONE (07:38)
[2022-08-20] MEDS: METOPROLOL TARTRATE 50 MG TAB PO SCH ×2 (09:22→21:04)
[2022-08-20] MEDS: LANSOPRAZOLE 15 MG SOLTAB GT SCH ×2 (09:23→23:03)
[2022-08-20] MEDS: dilTIAZem HCl 60 MG TAB PO SCH ×3 (09:23→21:04)
[2022-08-20] MEDS: ENOXAPARIN 80 MG/0.8 ML SYR SQ SCH ×2 (09:23→21:04)
[2022-08-20] MEDS: FOLIC ACID 1 MG TAB PEG SCH (09:24)
[2022-08-20] MEDS: NEOMYCIN/POLYMYX/BACITR OINT 15 GM TUBE EXT SCH ×2 (09:24→21:05)
[2022-08-20] MEDS: AMIODARONE 200 MG TAB NG SCH ×2 (09:24→16:23)
--- NOTE | 2022-08-20 11:58 | Cardiology Progress Note ---
Date of Service August 20, 2022 Assessment & Plan (1) Atrial fibrillation with RVR: Plan: 2. LVH with DD 2, moderate pulm hypertension 3. Mild 4. Pathologic hip fracture 5. Prior respiratory failure 6. Blood loss anemiaJehovah's Witness 7. History of DVT, known Antithrombin III deficiency 8. Prior CVA, dementia Remains in persistent atrial fibrillation. Rate control currently adequate. Asymptomatic with A-fib. Blood pressure stable and no significant congestion on exam. Recommend continued rate control with target heart rates 110s and below Continue current metoprolol 50 mg twice daily, diltiazem 60 mg 3 times daily. If heart rates trending up would increase metoprolol further Continue current amiodarone 200 mg twice daily. Would transition to 200 mg daily after 2 weeks On Lovenox bridge to Coumadin From a cardiac standpoint okay with transition to SNF when available. Appreciate hospital medicine care Admission and Anticipated Discharge Date Admission Date: July 29, 2022 Subjective Patient feeling okay. Concerned about leaving hospital. Denies any chest pain, shortness of breath. No palpitations. Telemetry reviewedremains in A-fib/flutter heart rates primarily 80s to 110s Review of Systems Review of Systems: All systems reviewed & are unremarkable except as noted in HPI & below Physical Exam Physical Exam: General: Comfortable HEENT: Sclerae anicteric Lungs: Clear anteriorly Cardiac: Tachycardic, irregular irregular, no murmurs Abdomen: Soft Extremities: Well perfused, no peripheral edema, 2+ DP pulses Psych: Alert oriented Results & Data Vital Signs (Past 12 Hours) Vital Signs Temp Pulse Resp BP Pulse Ox O2 Del Method 08/20/22 08:00 98.4 F 77 20 128/77 Room Air 08/20/22 03:31 99.3 F 61 18 114/72 97 Nasal Cannula PG Care Time/CCT Total # of Minutes Spent Total Time Spent with Patient: Total time spent is greater than 50% in coordination of care (as documented) at patient's floor/unit and/or counseling patient: Coding Level of Care Code 33022 SUB INP/OBS CARE 2/35MIN Diagnoses Atrial fibrillation with RVR I48.91
[2022-08-20] MEDS: MAGNESIUM SULFATE / D5W 1 GM/100 ML BAG IV SCH ×2 (12:16→14:17)
[2022-08-20] MEDS: WARFARIN SOD 4 MG TAB PO SCH ×2 (16:23→17:34)
[2022-08-20] MEDS ORDERED: ACETAMINOPHEN SUSP 1000 MG/31.2 ML UDP PO SCH (17:45)
[2022-08-20] MEDS ORDERED: ACETAMINOPHEN SUSP 325 MG/10.15 ML UDC ONE (17:48)
--- NOTE | 2022-08-20 17:50 | Hospitalist Progress Note ---
Date of Service August 20, 2022 Assessment & Plan (1) Dysphagia: Plan: severe. Now with PEG tube and tube feedings. Appreciate speech therapy evaluation and treatment. Acute on chronic problem high risk, he aspirates SILENTLY with thins. PEG tube placement 08/14/2022. Started PEG feedings on 08/15. Ultimate goal would be to eventually transition to nocturnal feeding or bolus feedings. Tolerating well PEG tube site appears normal postoperatively Needs Speech therapy at rehab-family and pt hopeful he will regain function Has muffled voice-throat exam normal on 08/20 follow lytes, LFTs, replace as needed-check CMP, Mag, phos in AM replace IV magnesium today continue Prevacid (2) Atrial fibrillation with RVR: Plan: Remains in rapid atrial flutter and fibrillation with rates as high as 120s but now rates improved with increased metoprolol Continue telemetry. Appreciate cardiology consultation and recommendations -continue metoprolol 50 Mg p.o. twice daily -Continue on amiodarone 200 Mg p.o. twice daily x 2 weeks and then go to 200mg once daily on 09/03/22 - Diltiazem was started on August 17 -continue 60mg tid Recent TSH wnl . Recent echo with preserved EF (08/01/22) but grade 2 diastolic dysfunction . Lovenox has replaced the heparin drip-continue Coumadin 4 mg daily-started on 08/19 Continue to bridge with Lovenox Follow INR (3) Acute on chronic diastolic CHF (congestive heart failure): Plan: acute decompensation has now resolved . Medical management. Monitor intake and output. (4) Acute hypoxemic respiratory failure: Plan: severe initially, now resolving- 2nd to b/l aspiration pneumonia (RUL, LLL, etc) . Improved with diuresis. Oxygen requirement now back to room air. He was temporarily intubated on July 31 and underwent bronchoscopy then subsequently extubated on August 01. He has completed 7-day course of IV zosyn. Parenteral steroids have been discontinued. Duo nebs have been decreased in frequency. Cont pulmonary toilet. Repeat COVID testing neg. Flu/RSV testing neg. 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 Orthopedics consult appreciated. Defers surgical correction due to medical comorbidities i.e. required intubation for aspiration pneumonia. Additional multiple right rib fractures He may weight-bear as tolerated with pain as his guide as per orthopedics Follow-up with orthopedics Needs rehab -make acetaminophen scheduled 100mg tid on 08/20 continue tramadol prn (6) Acute blood loss anemia: Plan: Due to bleeding into right hip/buttock/thigh from hip fracture. No overt GI bleeding. Fecal occult blood is NEGATIVE. Denominational jameson precludes any blood transfusion. He has received 3 doses of IV venofer this admission. Hemoglobin has improved and is stable now at 8.4 Follow CBC periodically (7) Diabetes mellitus type 2 in obese: Plan: controlled. Last a1c 6.1 03/2022. Holding home metformin. Cont novolog SSI. Cont lantus 5 units HS. 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 Previously on Coumadin which has been reversed with vitamin K. Heparin drip has now been converted to subcutaneous Lovenox. Restarted Coumadin 08/19 and continue bridging with Lovenox Follow INR (9) SDAT (senile dementia of Alzheimer's type): Plan: chronic and stable. Although he has some sundowning . Continue supportive care and Memantine (10) Goals of care, counseling/discussion: Plan: Palliative care consult appreciated. He does remain DNR/DNI. Family is wishing to have supportive care in hopes of presenting to rehabilitation facility (11) History of hemorrhagic stroke with residual hemiparesis: Plan: right-sided ICH 01/2022 with residual hemiparesis on left. Most recent head CT without hemorrhage. Supportive care. 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 Peña catheter Does have some penile edema contributing to friable skin Patient and hesitant to remove Peña catheter but Urology recommended doing so--> will remove early AM of 08/20 for TOV prior to discharge to rehab Wound care with Xeroformand abx ointment to the ulcers (13) Hyponatremia: Plan: Sodium low at 133, likely excessive free water--> now improved to 134 with decreasing free H2O -continue free water flushes to 100 mL every 6 hours from every 4 hours Follow BMP Plan Anticipate eventual discharge to SNF facility likely in 1-2 days once auth comes through DVT prophylaxis-Lovenox, coumadin Had lengthy discussion with and son at bedside on 08/19 and 08/20 Admission and Anticipated Discharge Date Admission Date: July 29, 2022 Subjective Having some pain at site of PEG tube and his right thigh. He has not taken anything for pain all day as per . He did stand up with PT and down twice today. He is still very anxious about taking the Peña out. Tele with Aflutter, rates better in the 80s Discussed his care with Cardiology Physical Exam Constitutional: WD/WN, vitals as above Respiratory: normal respiratory effort, lungs clear to auscultation Cardiovascular: Rate/Rhythm: regular rate and + irregularly irregular Heart Sounds: no murmur Extremities: + edema (Trace pitting edema bilateral legs) Gastrointestinal (Abdomen): Inspection/Auscultation: + abdomen abnormal to inspection (PEG tube in place LUQ, no surrounding erythema) Percussion/Palpation: abdomen soft; abdomen nontender and no guarding Musculoskeletal: Extremities: extremities normal to inspection (+TTP over right thigh, no mass or hematoma) Results & Data Results & Data Vital Signs (Past 12 Hours) Vital Signs Temp Pulse Pulse Resp BP Pulse Ox O2 Del Method 08/20/22 15:53 36.7 C 87 18 141/69 H 95 Nasal Cannula 08/20/22 08:00 Room Air 08/20/22 08:00 80 08/20/22 12:00 36.9 C 73 16 134/60 97 Room Air 08/20/22 08:00 36.9 C 77 20 128/77 Room Air Laboratory Results CBC, CMP, magnesium levels reviewed PG Care Time/CCT Total # of Minutes Spent Total Time Spent with Patient: Total time spent is greater than 50% in coordination of care (as documented) at patient's floor/unit and/or counseling patient: Coding Level of Care Code 96923 SUB INP/OBS CARE 3/50MIN Diagnoses Dysphagia R13.10 Atrial fibrillation with RVR I48.91 Acute on chronic diastolic CHF (congestive heart failure) I50.33 Acute hypoxemic respiratory failure J96.01 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
[2022-08-20] MEDS: LATANOPROST 0.005% OP SOLN 2.5 ML BTL OPB SCH (21:05)
[2022-08-20] MEDS: LANTUS PER UNIT CHARGE SQ SCH (21:06)
[2022-08-20] MEDS ORDERED: NURSING DECISION MEDICATION ONE (21:58)
[2022-08-20] MEDS ORDERED: SODIUM CHLORIDE 0.65% NA SOLN 45 ML (OCEAN) PRN (22:00)
[2022-08-20] MEDS: ACETAMINOPHEN SUSP 1000 MG/31.2 ML UDP PO SCH (23:04)
[2022-08-21] MEDS: TUBE FEEDING WATER FLUSH GT SCH ×4 (05:52→21:55)
[2022-08-21] MEDS: INSULIN ASPART PER UNIT CHARGE SC SCH ×4 (05:52→23:57)
[2022-08-21] MEDS: ACETAMINOPHEN SUSP 1000 MG/31.2 ML UDP PO SCH ×3 (05:55→21:46)
[2022-08-21] MEDS: ALBUT/IPRATROP 3MG/0.5MG NEB 3 ML VIAL NEB SCH ×2 (06:57→19:12)
[2022-08-21 07:23] LABS: Prothrombin Time 11.1 Seconds (9.0-12.0)
[2022-08-21 07:48] LABS: Albumin Globulin Ratio 0.8 (0.9-2); Albumin Level 2.2 gm/dl (3.4-5.0); BUN Creatinine Ratio 27.7 (10-20); Bilirubin,Total 0.7 mg/dl (0.2-1.0); Calcium 7.3 mg/dl (8.6-10.3); Creatinine Clr Calc Pharmacy 118.8 ml/min; Est GFR (African American) 104.3 ml/min; Globulin 2.6 gm/dl (2.5-4.0); Magnesium 1.9 mg/dl (1.7-2.4); Phosphorus 1.7 mg/dl (2.5-4.9); Potassium 4.6 mmol/L (3.5-5.1); Total Protein 4.8 gm/dl (6.0-8.3)
[2022-08-21] MEDS: AMIODARONE 200 MG TAB NG SCH ×2 (08:28→17:03)
[2022-08-21] MEDS: METOPROLOL TARTRATE 50 MG TAB PO SCH (08:28)
[2022-08-21] MEDS: LANSOPRAZOLE 15 MG SOLTAB GT SCH ×2 (08:28→21:20)
[2022-08-21] MEDS: dilTIAZem HCl 60 MG TAB PO SCH ×3 (08:28→21:23)
[2022-08-21] MEDS: NEOMYCIN/POLYMYX/BACITR OINT 15 GM TUBE EXT SCH ×2 (08:28→21:22)
[2022-08-21] MEDS: FOLIC ACID 1 MG TAB PEG SCH (08:29)
[2022-08-21] MEDS: ENOXAPARIN 80 MG/0.8 ML SYR SQ SCH ×2 (08:29→21:24)
[2022-08-21] MEDS ORDERED: SODIUM PHOSPHATE 3 MMOL/1 ML INFUSION IV STA (10:47)
[2022-08-21] MEDS ORDERED: METOPROLOL TARTRATE 25 MG TAB PO ONE (10:51)
[2022-08-21] MEDS ORDERED: SODIUM PHOSPHATE 15 MMOL in SODIUM CHLORIDE 0.9% 250 ML IV ONE (11:00)
[2022-08-21] MEDS: POT PHOSPHATE MONOBASIC W/ SOD TAB PEG SCH ×3 (12:48→21:23)
[2022-08-21] MEDS: PEPTAMEN 1.5 CAL 1,000 ML BAG PEG SCH ×2 (13:55→21:44)
[2022-08-21] MEDS: WARFARIN SOD 4 MG TAB PO SCH (17:03)
[2022-08-21] MEDS ORDERED: LORazepam 0.5 MG TAB PO PRN (18:26)
--- NOTE | 2022-08-21 18:31 | Hospitalist Progress Note ---
Date of Service August 21, 2022 Assessment & Plan (1) Dysphagia: Plan: severe. Now with PEG tube and tube feedings. Appreciate speech therapy evaluation and treatment. Acute on chronic problem high risk, he aspirates SILENTLY with thins. PEG tube placement 08/14/2022. Started PEG feedings on 08/15. Ultimate goal would be to eventually transition to nocturnal feeding or bolus feedings. Tolerating well PEG tube site appears normal postoperatively Needs Speech therapy at rehab-family and pt hopeful he will regain function Has muffled voice-throat exam normal on 08/20 follow lytes, LFTs, replace as needed-check CMP, Mag, phos in AM--> needs phos replacement today-added IV nad po phos continue Prevacid (2) Atrial fibrillation with RVR: Plan: With rapid atrial flutter and fibrillation with rates as high as 120s but now rates improved with increased metoprolol but still in 100s Continue telemetry. Appreciate cardiology consultation and recommendations -increase to metoprolol 75 Mg p.o. twice daily -Continue on amiodarone 200 Mg p.o. twice daily x 2 weeks and then go to 200mg once daily on 09/03/22 - Diltiazem was started on August 17 -continue 60mg tid Recent TSH wnl . Recent echo with preserved EF (08/01/22) but grade 2 diastolic dysfunction . Lovenox has replaced the heparin drip-continue Coumadin 4 mg daily-started on 08/19 Continue to bridge with Lovenox Follow INR (3) Acute on chronic diastolic CHF (congestive heart failure): Plan: acute decompensation has now resolved . Medical management. Monitor intake and output. (4) Acute hypoxemic respiratory failure: Plan: severe initially, now resolving- 2nd to b/l aspiration pneumonia (RUL, LLL, etc) . Improved with diuresis. Oxygen requirement now back to room air. He was temporarily intubated on July 31 and underwent bronchoscopy then subsequently extubated on August 01. He has completed 7-day course of IV zosyn. Parenteral steroids have been discontinued. Duo nebs have been decreased in frequency. Cont pulmonary toilet. Repeat COVID testing neg. Flu/RSV testing neg. 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 Orthopedics consult appreciated. Defers surgical correction due to medical comorbidities i.e. required intubation for aspiration pneumonia. Additional multiple right rib fractures He may weight-bear as tolerated with pain as his guide as per orthopedics Follow-up with orthopedics Needs rehab -continue acetaminophen scheduled 100mg tid continue tramadol prn -check hip xray in AM on 08/22 at family request and will touch base with Ortho (6) Acute blood loss anemia: Plan: Due to bleeding into right hip/buttock/thigh from hip fracture. No overt GI bleeding. Fecal occult blood is NEGATIVE. Hoahaoism jameson precludes any blood transfusion. He has received 3 doses of IV venofer this admission. Hemoglobin has improved and is stable now at 8.4 Follow CBC periodically (7) Diabetes mellitus type 2 in obese: Plan: controlled. Last a1c 6.1 03/2022. Holding home metformin. Cont novolog SSI. Cont lantus 5 units HS. 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 Previously on Coumadin which has been reversed with vitamin K. Heparin drip has now been converted to subcutaneous Lovenox. Restarted Coumadin 08/19 and continue bridging with Lovenox Follow INR (9) SDAT (senile dementia of Alzheimer's type): Plan: chronic and stable. Although he has some sundowning . Continue supportive care and Memantine (10) Goals of care, counseling/discussion: Plan: Palliative care consult appreciated. He does remain DNR/DNI. Family is wishing to have supportive care in hopes of presenting to rehabilitation facility (11) History of hemorrhagic stroke with residual hemiparesis: Plan: right-sided ICH 01/2022 with residual hemiparesis on left. Most recent head CT without hemorrhage. Supportive care. OT and PT (12) Urinary retention: Plan: Goldberg catheter now removed again and passed TOV He has developed penile ulcers likely from the Goldberg catheter Does have some penile edema contributing to friable skin Wound care with Xeroform and abx ointment to the ulcers (13) Hyponatremia: Plan: Sodium low at 133, likely excessive free water--> now improved to 135 with decreasing free H2O -continue free water flushes to 100 mL every 6 hours from every 4 hours Follow BMP (14) Elevated LFTs: Plan: AST,ALT, and ALK phos elevated but improved from previous could be from refeeding? No Fatty liver on imaging from amiodarone? follow repalce phos Plan Anticipate eventual discharge to SNF facility tomorrow DVT prophylaxis-Lovenox, coumadin Had lengthy discussion with and son at bedside on 08/19 and 08/20, 08/21 Admission and Anticipated Discharge Date Admission Date: July 29, 2022 Subjective Pt passed TOV after Goldberg removed. Very anxious about going to rehab. No BM in 2 days. Having pain in right hip and around PEG tube site. Tele with aflutter rates 100s and now down to 80s with increased metoprolol dose Physical Exam Constitutional: WD/WN, vitals as above Respiratory: normal respiratory effort, lungs clear to auscultation Cardiovascular: Rate/Rhythm: regular rate and + irregularly irregular Heart Sounds: no murmur Extremities: + edema (Trace pitting edema bilateral legs) Gastrointestinal (Abdomen): Inspection/Auscultation: + abdomen abnormal to inspection (PEG tube in place LUQ, no surrounding erythema) Percussion/Palpation: abdomen soft; abdomen nontender and no guarding Musculoskeletal: Extremities: extremities normal to inspection (+TTP over right thigh, no mass or hematoma) Psychiatric: Orientation: alert, oriented x 3 and cooperative Affect: + anxious affect Results & Data Results & Data Vital Signs (Past 12 Hours) Vital Signs Temp Pulse Resp BP Pulse Ox O2 Del Method 08/21/22 16:00 37.0 C 87 18 125/66 99 Room Air 08/21/22 12:00 36.6 C 94 H 18 119/61 97 Room Air 08/21/22 08:00 Room Air 08/21/22 07:11 36.5 C 117 H 18 120/74 96 Room Air 08/21/22 06:59 112 H 18 96 Room Air Laboratory Results CMP, INR, Mag, Phos reviewed PG Care Time/CCT Total # of Minutes Spent Total Time Spent with Patient: Total time spent is greater than 50% in coordination of care (as documented) at patient's floor/unit and/or counseling patient: Coding Level of Care Code 16044 SUB INP/OBS CARE 2/35MIN Diagnoses Dysphagia R13.10 Atrial fibrillation with RVR I48.91 Acute on chronic diastolic CHF (congestive heart failure) I50.33 Acute hypoxemic respiratory failure J96.01 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 Elevated LFTs R79.89
[2022-08-21 20:17] LABS: Influenza A virus by PCR Negative (Neg); Influenza B virus by PCR Negative (Neg); RSV by PCR Negative (Neg); SARS CoV2 RNA(COVID-19) Ceph NEGATIVE (Negative)
[2022-08-21] MEDS: DOCUSATE SODIUM SYRUP 100 MG/10 ML UDC PEG SCH (21:18)
[2022-08-21] MEDS: METOPROLOL TARTRATE 25 MG TAB PO SCH (21:21)
[2022-08-21] MEDS: LATANOPROST 0.005% OP SOLN 2.5 ML BTL OPB SCH (21:22)
[2022-08-21] MEDS: LANTUS PER UNIT CHARGE SQ SCH (21:25)
[2022-08-21] MEDS ORDERED: guaiFENesin/DEXTROM SYRUP 200MG/20MG 10ML UDC PO STA (23:11)
[2022-08-22] MEDS: TUBE FEEDING WATER FLUSH GT SCH ×3 (04:48→16:11)
[2022-08-22] MEDS: INSULIN ASPART PER UNIT CHARGE SC SCH ×2 (05:57→12:26)
[2022-08-22] MEDS: ACETAMINOPHEN SUSP 1000 MG/31.2 ML UDP PO SCH ×2 (05:59→12:27)
[2022-08-22 06:15] LABS: Basophils # (auto) 0.01 K/uL (0-0.2); Basophils % (auto) 0.2 %; Eosinophils # (auto) 0.19 K/uL (0-0.50); Eosinophils % (auto) 4.1 %; Hematocrit (blood only) 26.9 % (42.0-52.0); Hemoglobin 8.5 g/dl (14.0-18.0); Immature Granulocytes # (auto) 0.04 K/uL (0.01-0.20); Immature Granulocytes % (auto) 0.9 %; Lymphocytes # (auto) 0.94 K/uL (1.2-3.4); Lymphocytes % (auto) 20.5 %; Mean Corpuscular Hemoglobin 31.7 pg (25.0-34.0); Mean Corpuscular Hgb Conc 31.6 g/dL (32.0-36.0); Mean Corpuscular Volume 100.4 fL (80.0-100.0); Mean Platelet Volume 9.9 fL (9.4-12.4); Monocytes # (auto) 0.42 K/uL (0.11-0.59); Monocytes % (auto) 9.2 %; Neutrophils # (auto) 2.99 K/uL (1.40-6.50); Neutrophils % (auto) 65.1 %; Platelet Count 177 K/uL (130-400); RDW Coefficient of Variation 17.3 % (11.5-14.5); RDW Standard Deviation 63.3 fL (36.4-46.3); Red Blood Count 2.68 M/uL (4.70-6.10); White Blood Count 4.59 K/ul (4.8-10.8)
[2022-08-22 06:33] LABS: INR 1.2 (0.9-1.1); Prothrombin Time 12.2 Seconds (9.0-12.0)
[2022-08-22 06:37] LABS: Albumin Globulin Ratio 0.8 (0.9-2); Albumin Level 2.2 gm/dl (3.4-5.0); BUN Creatinine Ratio 33.9 (10-20); Bilirubin,Total 0.8 mg/dl (0.2-1.0); Calcium 7.2 mg/dl (8.6-10.3); Creatinine Clr Calc Pharmacy 124.5 ml/min; Est GFR (African American) 106.3 ml/min; Est GFR (Non-African American) 91.7 ml/min; Globulin 2.7 gm/dl (2.5-4.0); Magnesium 1.7 mg/dl (1.7-2.4); Phosphorus 2.3 mg/dl (2.5-4.9); Potassium 4.7 mmol/L (3.5-5.1); Total Protein 4.9 gm/dl (6.0-8.3)
[2022-08-22] MEDS: ALBUT/IPRATROP 3MG/0.5MG NEB 3 ML VIAL NEB SCH (07:16)
--- NOTE | 2022-08-22 07:59 | XRay Report ---
XR hip RT min 2V CLINICAL HISTORY: f/u hip fracture TECHNIQUE: 2 views of the right hip were obtained. Comparison: Comparison is made to right hip radiograph 07/29/[address] hip 07/31/2022 FINDINGS: There is a intratrochanteric/subtrochanteric fracture of the right proximal femur with mild impaction and distracted bony fragment. Joint spaces are well-preserved. Vascular calcifications are noted. IMPRESSION: Redemonstration of a comminuted right hip fracture. ACT 112: Negative or not required by law. Electronically signed by: Abner Shah M.D. 08/22/2022 7:58 AM
[2022-08-22] MEDS: dilTIAZem HCl 60 MG TAB PO SCH ×2 (08:33→12:26)
[2022-08-22] MEDS: POT PHOSPHATE MONOBASIC W/ SOD TAB PEG SCH ×3 (08:33→16:11)
[2022-08-22] MEDS: ENOXAPARIN 80 MG/0.8 ML SYR SQ SCH (08:33)
[2022-08-22] MEDS: METOPROLOL TARTRATE 25 MG TAB PO SCH (08:33)
[2022-08-22] MEDS: LANSOPRAZOLE 15 MG SOLTAB GT SCH (08:34)
[2022-08-22] MEDS: AMIODARONE 200 MG TAB NG SCH ×2 (08:34→16:10)
[2022-08-22] MEDS: NEOMYCIN/POLYMYX/BACITR OINT 15 GM TUBE EXT SCH (08:34)
[2022-08-22] MEDS: FOLIC ACID 1 MG TAB PEG SCH (08:34)
[2022-08-22] MEDS: DOCUSATE SODIUM SYRUP 100 MG/10 ML UDC PEG SCH (08:35)
[2022-08-22] MEDS ORDERED: MAGNESIUM OXIDE 400 MG TAB PEG SCH (10:45)
--- NOTE | 2022-08-22 12:30 | Discharge Summary ---
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 Patient's provided the history of the event while patient provided supporting details. note that she had left the house briefly for an appointment, normally patient is independent of ADLs and self care at home and only requires assistance with medications. Patient had wanted to go outside to blow some leaves from their driveway and in an effort to start the leaf blower he lost his balance and fell to the ground from standing. This occurred between 12PM and 3PM. arrived home around 3 PM and found her in the driveway on the ground. Patient notes that he was unable to stand up on his own, he attempted to get to the wall outside to pull himself up but was unable. He denies any chest pain, dyspnea, headaches, abdominal pain or visual changes prior to the fall. He notes that he did not hit his head. Patient denies any r ecent urinary changes, but does not recent constipation, for which he takes Miralax. Patient does not drink any alcohol and has never smoked cigarettes. Patient recently attempted a new medication for memory (Meperidine) and had to discontinue it due to difficulty sleeping and constipation. No other medication changes. EMS Course: Patient received Fentanyl and Zofran en route. ER Course: Patient received Morphine 4 mg Principal Diagnosis Right hip fracture, Severe dysphagia s/p PEG tube placement Rapid atrial flutter/fibrillation Acute blood loss anemia Acute respiratory failure with hypoxia requiring mechanical ventilation Discharge Exam Constitutional WD/WN, vitals as above Respiratory normal respiratory effort, lungs clear to auscultation Cardiovascular Rate/Rhythm: regular rate and + irregularly irregular Heart Sounds: no murmur Gastrointestinal (Abdomen) Inspection/Auscultation: + abdomen abnormal to inspection (PEG tube in place LUQ, no surrounding erythema) Percussion/Palpation: abdomen soft; abdomen nontender and no guarding Musculoskeletal Extremities: extremities normal to inspection (+TTP over right thigh, no mass or hematoma) Psychiatric Orientation: alert, oriented x 3 and cooperative Affect: + anxious affect Discharge Data Allergies Allergy/AdvReac Type Severity Reaction Status Date / Time meperidine AdvReac Intermediate OVER-SEDATION, Verified 07/29/22 19:58 N/V W/ SYNCOPE sertraline [From Zoloft] AdvReac Intermediate Dizziness Verified 07/29/22 19:58 Consultations 07/29/22 20:13 ED Decision to Admit Stat 07/29/22 21:14 Consult Orthopedic Surgery Stat 07/31/22 08:20 Consult Lye Machine Operator Routine 08/01/22 11:05 Consult Palliative Care Routine 08/02/22 12:06 Consult Cardiology Routine 08/13/22 11:08 Consult Gastroenterology Routine 08/13/22 11:29 Consult Anesthesiology Routine 08/19/22 18:06 Consult Urology Routine Procedures Performed Operation Date: 08/14/22 16:30 Actual Procedures p EGD Gastric Tube Placement - Kale Wilkins, DO Ordered Studies 07/29/22 17:56 CT chest diagnostic wo con Stat 07/31/22 07:53 CT head/brain wo con Stat 07/31/22 07:56 CT cervical spine wo con Stat 07/31/22 09:00 CT abd pelvis wo con Stat CT chest diagnostic wo con Stat 07/31/22 09:32 CT hip RT wo con Urgent 08/12/22 14:00 FL video swallow Routine ECHO Hospital Course (1) Dysphagia: severe. Now with PEG tube and tube feedings. Appreciate speech therapy evaluation and treatment. Acute on chronic problem high risk, he aspirates SILENTLY with thins. PEG tube placement 08/14/2022. Started PEG feedings on 08/15. Ultimate goal would be to eventually transition to nocturnal feeding or bolus feedings. Tolerating well PEG tube site appears normal postoperatively Needs Speech therapy at rehab-family and pt hopeful he will regain function Has muffled voice-throat exam normal on 08/20 follow lytes, LFTs, replace as needed-check CMP, Mag, phos periodically--> continue phos replacement and mag replacement per PEG continue Prevacid (2) Atrial fibrillation with RVR: With rapid atrial flutter and fibrillation with rates as high as 120s but now rates improved with increased metoprolol in 80s-100 Appreciate cardiology consultation and recommendations -continue metoprolol 75 Mg per PEG twice daily -Continue on amiodarone 200 Mg twice daily x 2 weeks and then go to 200mg once daily on 09/03/22 - Diltiazem was started on August 17 -continue 60mg tid Recent TSH wnl . Recent echo with preserved EF (08/01/22) but grade 2 diastolic dysfunction . Lovenox has replaced the heparin drip-continue Coumadin daily-started on 08/19 Continue to bridge with Lovenox Follow INR-1.1 on day of discharge (3) Acute on chronic diastolic CHF (congestive heart failure): acute decompensation has now resolved . Medical management. Monitor intake and output. (4) Acute hypoxemic respiratory failure: severe initially, now resolving- 2nd to b/l aspiration pneumonia (RUL, LLL, etc) . Improved with diuresis. Oxygen requirement now back to room air. He was temporarily intubated on July 31 and underwent bronchoscopy then subsequently extubated on August 01. He has completed 7-day course of IV zosyn. Parenteral steroids have been discontinued. Duo nebs have been decreased in frequency. Cont pulmonary toilet. Repeat COVID testing neg. Flu/RSV testing neg. (5) 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: s/p fall on admission. Orthopedics consult appreciated. Defers surgical correction due to medical comorbidities i.e. required intubation for aspiration pneumonia. Additional multiple right rib fractures He may weight-bear as tolerated with pain as his guide as per orthopedics Follow-up with orthopedics Needs rehab -continue acetaminophen scheduled 100mg tid continue tramadol prn -checked hip xray in AM on 08/22 at family request -fracture present but appears healing, same alignment as before f/u Ortho Dr. Feliz in 1-2 weeks (6) Acute blood loss anemia: Due to bleeding into right hip/buttock/thigh from hip fracture. No overt GI bleeding. Fecal occult blood is NEGATIVE. Hindu jameson precludes any blood transfusion. He has received 3 doses of IV venofer this admission. Hemoglobin has improved and is stable now at 8.5 Follow CBC periodically (7) Diabetes mellitus type 2 in obese: controlled. Last a1c 6.1 03/2022. restart home metformin. Cont novolog SSI. Cont lantus 5 units HS. (8) Hx of deep venous thrombosis: chronic and stable. Known Antithrombin III Deficiency/Hx DVT. Previously on Coumadin which has been reversed with vitamin K. Heparin drip has now been converted to subcutaneous Lovenox. Restarted Coumadin 08/19 and continue bridging with Lovenox Follow INR (9) SDAT (senile dementia of Alzheimer's type): chronic and stable. Although he has some sundowning . Continue supportive care and Memantine (10) Goals of care, counseling/discussion: Palliative care consult appreciated. He does remain DNR/DNI. Family is wishing to have supportive care in hopes of presenting to rehabilitation facility (11) History of hemorrhagic stroke with residual hemiparesis: right-sided ICH 01/2022 with residual hemiparesis on left. Most recent head CT without hemorrhage. Supportive care. OT and PT (12) Urinary retention: Peña catheter now removed again and passed TOV He has developed penile ulcers likely from the Peña catheter Does have some penile edema contributing to friable skin Wound care with Xeroform and abx ointment to the ulcers (13) Hyponatremia: Sodium low at 133, likely excessive free water--> now improved to 136 with decreasing free H2O -continue free water flushes 100 mL every 6 hours Follow BMP at rehab (14) Elevated LFTs: AST,ALT, and ALK phos elevated but improved from previous could be from refeeding? No Fatty liver on imaging more likely from amiodarone? LFTs were elevated prior to this hospitalization -dc statin for now follow LFTs as outpt Alk phos may be up due to bone fracture also Plan Dispo- discharge to SNF today DVT prophylaxis-Lovenox, coumadin Had lengthy discussion with and son at bedside on 08/19 and 08/20, 08/21, and 08/22 Total Time Total Time Spent Total Time Spent (In Minutes): 60 min Discharge Plan Discharge Items Patient Disposition: Transfer [facility] Reason For Visit: HIP FRACTURE, FALL Discharge Diagnosis: Right hip fracture, Severe dysphagia s/p PEG tube placement Rapid atrial flutter/fibrillation Acute blood loss anemia Acute respiratory failure with hypoxia requiring mechanical ventilation Condition on Discharge: Fair Activity: As commented below Bathing: No limitations Exercise/Sports: Gradually increase as tolerated Weightbearing: Right weightbearing Weightbearing Comment: Right lower extremity WBAT Non-emergency contact: Primary Care Provider and Surgeon Call non-emergency contact if: you have any medication questions, your symptoms worsen and your pain is not controlled Follow-up/Referrals: Beto Feliz MD [Physician] - (Follow up within 2 weeks.) Harshal Frias, [Primary Care Provider] - Diet: Nothing by Mouth Diet Comment: Tube Feeds Addtl Attending Provider Instructions: You were admitted with a hip fracture which was treated non-operatively because you had respiratory failure requiring intubation. You also suffered acute blood loss anemia, heart failure, rapid atrial fibrillation, urinary retention requiring a Peña catheter, and severe dysphagia requiring placement of a PEG tube for tube feeds. You will need continued PT/OT and Speech Therapy. Please continue wound care to your penile ulcers and sacral ulcers. Your amiodarone was increased to twice daily and should be decreased back to once daily in early August. This may be causing your liver enzymes to be mildly elevated and these should be followed. Your coumadin was restarted and your INR needs to be checked every 2-3 days until therapeutic. Please continue the Lovenox fo rbridging in the meantime to prevent DVT. Please follow a CBC and CMP in 1 week. You may need further IV iron to improve your blood counts in the future. Pending Studies at Discharge: No Stand-Alone Forms: My [facility] Skilled Items Patient informed of condition?: Yes DNR: Yes Discharge Level of Care: Skilled Communicable Disease: No Discharge Prognosis: Improving Lines: None Urinary Catheter: No Medications and DC Order Prescriptions: New enoxaparin [Lovenox] 80 mg/0.8 mL Syringe 80 mg subcut BID 3 Days Qty: 4.8 0RF acetaminophen [Infants' Pain and Fever] 160 mg/5 mL Suspension 1,000 mg feeding tube Q8 30 Days Qty: 2812.5 0RF diltiazem HCl 60 mg Tablet 60 mg feeding tube TID Qty: 90 0RF metoprolol tartrate 25 mg Tablet 75 mg feeding tube BID Qty: 180 0RF lorazepam 0.5 mg Tablet 0.5 mg feeding tube HS PRN (Reason: insomnia or anxiety) Qty: 3 0RF tramadol 50 mg Tablet 50 mg feeding tube Q4H PRN (Reason: moderate-severe pain) Qty: 9 0RF Peptamen 1.5 0.068 gram- 1.5 kcal/mL Liquid See Rx Instructions .ROUTE .COMPLEX Qty: 6000 0RF Rx Instructions: 60mL/hr continuous Phospha 250 Neutral 250 mg Tablet 1 tab PEG QID Qty: 120 0RF docusate sodium 60 mg/15 mL Syrup 100 mg PEG HS Qty: 480 0RF magnesium oxide 400 mg (241.3 mg magnesium) Tablet 400 mg PEG QAM Qty: 30 0RF lansoprazole [Prevacid SoluTab] 15 mg Tablet,Disintegrat, Delay Rel 15 mg G-tube BID Qty: 60 0RF Triple Antibiotic 3.5mg-400 unit- 5,000 unit/gram Ointment 1 applic EXT Q12 Qty: 14 0RF Rx Instructions: apply to penile ulcers folic acid 1 mg Tablet 1 mg PEG QAM Qty: 30 0RF Tube Feeding Water Flush 100 ml G-tube Q6H Qty: 1000 1RF Continued metformin 500 mg tablet 500 mg PO BID Qty: 180 3RF Lupron Depot (6 Month) 45 mg syringe kit 45 mg IM Q24W Qty: 1 0RF latanoprost 0.005 % drops 1 drp OPB HS mecobalamin (vitamin B12) 1,000 mcg tablet,chewable 1,000 mcg PO QAM Qty: 30 0RF Rx Instructions: Per PEG tube Changed amiodarone 200 mg tablet 200 mg feeding tube BID Qty: 90 3RF Rx Instructions: and then decrease to 200mg daily on 08/29/22 warfarin 3 mg tablet 3 mg feeding tube [id number] Qty: 30 0RF Protocol: Dose Management Condition: Friday Dose/Route: 3 mg Instruction: 1 x 3 mg tablet Condition: Friday Dose/Route: 3 mg Instruction: 1 x 3 mg tablet Condition: Friday Dose/Route: 4.5 mg Instruction: 1.5 x 3 mg tablets Condition: Friday Dose/Route: 3 mg Instruction: 1 x 3 mg tablet Condition: Dose/Route: 3 mg Instruction: 1 x 3 mg tablet Condition: Friday Dose/Route: 3 mg Instruction: 1 x 3 mg tablet Condition: Friday Dose/Route: 3 mg Instruction: 1 x 3 mg tablet Protocol Text: Adjustment Start Date: 07/18/22 INR Value: 3.2 INR Date: 07/18/22 Recheck Date: 07/29/22 Rx Instructions: TAKE 3MG EVERY FRIDAY/FRIDAY/FRIDAY/FRIDAY/FRIDAY/FRIDAY. warfarin 3 mg tablet 4.5 mg feeding tube WK Qty: 30 0RF Protocol: Dose Management Condition: Friday Dose/Route: 3 mg Instruction: 1 x 3 mg tablet Condition: Friday Dose/Route: 3 mg Instruction: 1 x 3 mg tablet Condition: Friday Dose/Route: 4.5 mg Instruction: 1.5 x 3 mg tablets Condition: Friday Dose/Route: 3 mg Instruction: 1 x 3 mg tablet Condition: Dose/Route: 3 mg Instruction: 1 x 3 mg tablet Condition: Friday Dose/Route: 3 mg Instruction: 1 x 3 mg tablet Condition: Friday Dose/Route: 3 mg Instruction: 1 x 3 mg tablet Protocol Text: Adjustment Start Date: 07/18/22 INR Value: 3.2 INR Date: 07/18/22 Recheck Date: 07/29/22 Rx Instructions: TAKE 4.5MG EVERY FRIDAY Discontinued carvedilol 6.25 mg tablet 6.25 mg PO BID Qty: 180 3RF Rx Instructions: must administer with a meal/food atorvastatin 40 mg tablet 40 mg PO HS Qty: 90 3RF amlodipine 2.5 mg tablet 2.5 mg PO DAILY Qty: 90 3RF (DME) blood sugar diagnostic Strip See Rx Instructions .ROUTE .MEDSUPPLY Qty: 100 3RF Rx Instructions: TEST BLOOD SUGAR ONCE A DAY & NEEDED polyethylene glycol 3350 [Miralax] 17 gram powder in packet 17 g PO BID PRN (Reason: Constipation) lisinopril 10 mg tablet 10 mg PO QAM Rx Instructions: 07/29/22 : ORDERED 10MG BID. FAMILY STATES PT TAKES 10MG IN AM ONLY. Discharge Orders: Discharge Order (Routine); Ordered 08/22/22 Ordered By: Rachel Delgado Admission Data Admit Date/Time: 07/29/22 23:04 Attending Provider: Rachel Delgado Admit Provider: Jose Luis Sykes Primary Care Provider: Harshal Frias Other Providers: [facility] ; Natanael Mart ; Jose Ramon Baugh ; Lily Vázquez ; Andrew Morillo ; Saba Sumner ; Jed Wilks ; Sandhya Magaña ; Marietta Whipple ; Berenice Osei ; Oscar Bell ; Beto Feliz ; Marin Cerrato ; Yaniv Amezquita ; Yaniv Rubio ; Timothy Acuña ; Corinna Stevenson ; Aman Almeida ; Morgan Aguilar ; Trey Robels ; Beot Merino ; Juan Manuel Graff ; Smith Coppola Jr ; Ricardo Peng ; Katya Black ; Latrice Hou ; Derrick Mas ; Daniel Preciado ; Fracisco Malave ; Saba Carbajal ; Torrie Galdamez ; Jaspal Thompson ; Tray Lo ; Shaheed Celaya ; Beto Beaulieu V. ; Kale Wilkins ; Una Monzon ; Brianne Ryan ; Keyanna Gutierrez ; Farideh Ashraf ; Cecelia Cowan ; Harshal Avelar ; Cortez Soto ; Bob Oswald ; Jamarcus Zamarripa ; Rubina Zamarripa ; Yaniv Vela ; Saba Sauceda ; Andi Rodriguez ; Vladimir Akers ; Vish Smith ; Jos Hernadez ; Layne Rodriguez ; Marty Kwan ; Mirna Cowan ; Lily Kwan ; Sammy Rhodes ; Daphney Herrera ; Gutierrez Gregory ; Meg Benitez ; Iris Gunn ; Igor Lang ; Riya Delatorre ; Kenyatta Poon ; Wendy Ellis ; Cele Patel ; Frankie Patel V ; Hussain Han ; Brianne Toledo ; Michael Green ; Jessa Howard ; Frankie Bolden ; Arie Rodriguez ; Abner Perez ; Kelly Mena ; Leslie Rios ; Frankie Linares ; Eliot Villalba ; Yris Self ; Beto Paez ; Grant Hernadez ; Radha Menezes ; Ho Romano ; Sergio Haney ; Daniel Russo ; Harshal Watkins Jr ; Xochitl Serrano ; Edwina Stauffer A. ; Alyssa Vasquez ; Igor Rai ; Farideh Tellez ; Jamarcus Villela ; Gary Montgomery I. ; Ijeoma Degroot S. ; Edwina Tompkins A. ; Susan Villatoro. ; Jed Chan ; Margarito Schafer ; Leonardo Kurtz ; Paresh Thomson V. ; Paulino Dumont ; Valentín Solorio ; Daniel Jimenez Other Interventions: Discharge Summary Assessment (RN) Last Done: 08/14/22 12:27 Coding Level of Care Code 60004 INP/OBS DISCH >30 MIN Diagnoses Dysphagia R13.10 Atrial fibrillation with RVR I48.91 Acute on chronic diastolic CHF (congestive heart failure) I50.33 Acute hypoxemic respiratory failure J96.01 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 Elevated LFTs R79.89
[2022-08-22] MEDS: WARFARIN SOD 4 MG TAB PO SCH (16:07)
== END 2022-08-22 17:30 | DRG 542 ==
LOC: ED 17:24 → 3W 23:04 → SUATTDRO 23:04 → 3W 23:31 → 1E 07-31 07:48 → 2W 08-02 16:46 → 2E 08-09 19:42 → 2S 08-10 17:29